=== PATIENT | male | born 1935 | race Caucasian/White ===

== ENCOUNTER 2017-06-07 16:27 | Emergency (ER) | payer MEDICARE, OTHER, SELFPAY ==
[2017-06-07 16:28] VITALS: BP 141/70; PULSE 75; RESP 17; TEMP 36.7; O2SAT 98; BMI 26.1
--- NOTE | 2017-06-07 16:40 | RAD_ITS ---
STUDY: X-RAY - UNILATERAL RIBS ( LEFT ) WITH CHEST REASON FOR EXAM: Male, 81 years old. Fall on the ice. Left rib pain TECHNIQUE - RIBS: 4 view(s) of the ribs. TECHNIQUE - CHEST: Single frontal view of the chest. COMPARISON: None. FINDINGS - RIBS: There are questionable nondisplaced lateral rib fractures involving the seventh and eighth ribs. FINDINGS - CHEST: There is hyperinflation of the lungs consistent with chronic obstructive lung disease (COPD). Lungs are clear. There is no demonstrated pleural abnormality. 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 Mild cardiomegaly. Left chest wall pacing device. Normal mediastinum and jostin. Normal visualized pulmonary arteries. Normal visualized aortic arch and descending thoracic aorta. Normal visualized thoracic spine. Normal visualized ribs, clavicles, and shoulders. There is no demonstrated abnormality of the visualized soft tissue structures of the upper abdomen. RAD/Ribs Uni Min 3V w/PA Chest IMPRESSION: RIBS: Probable 2 nondisplaced left lateral rib fractures as above CHEST: COPD without pneumothorax or acute airspace disease Electronically Signed: George Kong DO at 17:44 EST Tel , Service support ,
--- NOTE | 2017-06-07 16:44 | ED.DCSUM_ITS ---
- ER Visit Summary Date of Service: 06/07/17 Chief Complaint: Fall History of Present Illness: The patient is a 81 M who fell on the ice yesterday. Patient is complaining of pain to the left ribs and to his left hip. Denies striking his head or loss of consciousness. Patient does have A. fib but is only taking baby aspirin, no other anticoagulants. He took some over -the-counter arthritis pain relief medicine this morning. Physical Examination: Vital signs are unremarkable. Head neck examination reveals no external sign of trauma. No C-spine tenderness. Heart is regular rate and rhythm. Lung sounds are clear. He has reproducible tenderness in the left lower lateral ribs. There is no crepitus noted. Abdomen is soft nontender. Extremity examination reveals tenderness over both anterior and lateral portion of the left hip. He does have full range of motion at the hip. Strong distal pulses are noted throughout. Test Results: Left rib series with chest x-ray reveals probable to nondisplaced lateral rib fractures. He has evidence of COPD without pneumothorax. Pelvis left hip x-rays are unremarkable. Emergency Department Course and Treatment: Patient initially declined anything for pain, but after x-rays return he does agree to taking something stronger for pain. He will be given 1 tab of [place] here and a prescription for [place] will be sent electronically to [facility] [place]. Treatment Plan: [] Disposition: Discharge Impression: 1. Mechanical fall 2. Nondisplaced rib fractures This note was generated with [employer] dictation software. It may contain incorrect words, spelling, and punctuation that were not noted in review of the chart prior to signing ED Disposition - Plan for ED Patient: Chief Complaint: Fall Referrals: Jono Harrington Chi, MD [Primary Care Provider] -
[2017-06-07 16:49] VITALS: TEMP 36.6
--- NOTE | 2017-06-07 17:10 | RAD_ITS ---
STUDY: X-RAY - PELVIS AND LEFT HIP REASON FOR EXAM: Male, 81 years old. Left hip pain after fall on the ice TECHNIQUE: Radiological exam, hip, unilateral, with pelvis when performed; 2 or 3 views. COMPARISON: None. FINDINGS: There is a non-specific bowel gas pattern. Normal visualized soft tissue structures. Normal bilateral iliac wings, sacroiliac joints and visualized sacrum. Normal bilateral superior and inferior pubic rami. Normal pubic symphysis. Normal bilateral ischial tuberosities. There are osteoarthritic changes of the femoral head with marginal osteophyte formation. Normal acetabulum. There is mild articular joint space narrowing of the hip. RAD/Hip 2-3 Views with Pelvis IMPRESSION: No acute fracture Electronically Signed: George Kong DO at 17:46 EST Tel , Service support ,
--- NOTE | 2017-06-07 18:03 | ED.DEP ---
ED Disposition - Plan for ED Patient: Disposition: Home or Assisted Living Chief Complaint: Fall Instructions: ED Mechanical Fall, ED Fx Rib Prescriptions: Hydrocodone Bitart/Apap 5-325 [[place] 5/325] 1 - 2 tablet PO Q6H PRN PRN 4 Days #20 tablet PRN Reason: Pain Referrals: Jono Harrington Chi, MD [Primary Care Provider] - 1 Week
--- NOTE | 2017-06-07 18:06 | DCINST.ED_ITS ---
ED Disposition - Plan for ED Patient: Disposition: Home or Assisted Living Chief Complaint: Fall Instructions: ED Mechanical Fall, ED Fx Rib Prescriptions: Hydrocodone Bitart/Apap 5-325 [[place] 5/325] 1 - 2 tablet PO Q6H PRN PRN 4 Days # 20 tablet PRN Reason: Pain Referrals: Jono Harrington Chi, MD [Primary Care Provider] - 1 Week
[2017-06-07] MEDS: HYDROcodone Bitartrate/Apap 5/325 Tablet PO (18:13)
[2017-06-07 18:18] VITALS: BP 142/106; PULSE 99; RESP 16; O2SAT 99
--- NOTE | 2017-06-07 18:19 | ED.RN ---
REVIEWED D/C INSTRUCTIONS, FOLLOW UP CARE, PRESCRIPTION, AND S/S THAT WOULD WARRANT A RETURN TO THE ED WITH PT. PT VERBALIZED AN UNDERSTANDING AND DENIES FURTHER QUESTIONS FOR THIS RN. PT SKIN P/W/D, RESP EVEN AND UNLABORED, PT A&O X 3, NO DISTRESS NOTED. PT ASSISTED OUT OF ED IN WHEELCHAIR.
== END 2017-06-07 18:25 | disposition home or self-care (01) ==
PROVIDERS: Emergency Provider Emergency Medicine; Family Provider Family Medicine Geriatric Medicine; PCP Family Medicine Geriatric Medicine
DX: S22.42XA Multiple fractures of ribs, left side, initial encounter for closed fracture (principal); W00.0XXA Fall on same level due to ice and snow, initial encounter; Y93.9 Activity, unspecified; Y92.9 Unspecified place or not applicable; J44.9 Chronic obstructive pulmonary disease, unspecified; I48.91 Unspecified atrial fibrillation; Z79.82 Long term (current) use of aspirin; I25.10 Atherosclerotic heart disease of native coronary artery without angina pectoris; I13.0 Hypertensive heart and chronic kidney disease with heart failure and stage 1 through stage 4 chronic kidney disease, or unspecified chronic kidney disease; I50.9 Heart failure, unspecified; N18.9 Chronic kidney disease, unspecified; E78.00 Pure hypercholesterolemia, unspecified; Z79.899 Other long term (current) drug therapy; Z87.891 Personal history of nicotine dependence; Z95.1 Presence of aortocoronary bypass graft; Z95.0 Presence of cardiac pacemaker
CPT/HCPCS: 71101; 73502; 99283

== ENCOUNTER 2017-07-29 19:59 | Inpatient (IN) | payer MEDICARE, OTHER, SELFPAY ==
[2017-07-29] VITALS (8 sets, daily range): BP systolic 91–132; BP diastolic 53–95; PULSE 98–141; RESP 16–20; TEMP 36.4–36.9; O2SAT 90–92; BMI 25.9; BMI 25.7
--- NOTE | 2017-07-29 20:07 | CT_ITS ---
STUDY: CT ABDOMEN AND PELVIS WITHOUT CONTRAST REASON FOR EXAM: Male, 82 years old. Mid abdominal pain RADIATION DOSAGE (If Supplied By Facility): CTDIvol = ( 8.22 ) mGy, DLP = ( 406.44 ) mGycm TECHNIQUE: Transaxial images were obtained from the dome of the diaphragm to the symphysis pubis without oral contrast, and without intravenous contrast. Sagittal and coronal images were reconstructed. Individualized dose optimization techniques were used for this CT. COMPARISON: March 16, 2016 FINDINGS: There is a left pleural effusion present. There is a cardiac pacer device in place. Normal liver. There are surgical clips in the gallbladder fossa consistent with a prior cholecystectomy. Normal spleen. Normal pancreas. Normal bilateral adrenal glands. There are bilateral nonobstructing renal calculi. There is a exophytic left renal cysts measuring up to 6.1 Normal visualized stomach. There are dilated fluid-filled loops of small bowel within the lower abdomen and pelvis. There is feculent appearing material within the ileum. There are postsurgical changes along the anterior abdominal wall. There are diverticula scattered throughout the sigmoid colon. There is non-visualization of the appendix. There is diffuse atherosclerotic calcification of the abdominal aorta, without a demonstrated aneurysm. Normal inferior vena cava. Normal retroperitoneum. Normal urinary bladder. There are diffuse degenerative changes of the visualized lumbar spine. There are stable T12 and L1 anterior compression deformities. The bones are diffusely demineralized. There are left seventh, eighth and ninth rib deformities consistent old rib fractures. CT/Abdomen/Pelvis without Cont IMPRESSION: Small bowel obstruction. Colonic diverticulosis. Bilateral nonobstructing renal calculi. Left pleural effusion. Atherosclerosis. Electronically Signed: Lalita Sharif MD at 21:12 EDT Tel , Service support ,
--- NOTE | 2017-07-29 20:14 | ED.VISSUMM ---
- ER Visit Summary Date of Service: 07/29/17 Chief Complaint: [] Mid abdominal pain since yesterday History of Present Illness: The patient is a 82 M [] of CABG a pacemaker, A. fib, cardiac stents, cholecystectomy who reports yesterday he began having more centralized abdominal pain that persisted today he has had some nausea he has been able to eat he has had normal bowel habits and urinary habits. No fever no cough, the pain comes in spasms he does report history of kidney stones years ago nothing recent, he has had no exposures no antibiotics is otherwise been in stable health, he points directly to the periumbilical central abdominal region as the focal area of his pain, nothing makes the pain better or worse Physical Examination: [] He is tachycardic to 110 he is afebrile his blood pressure is within normal range she is awake and alert answering questions slightly hard of hearing his HEENT exam is unremarkable neck is supple unremarkable the lungs sound normal heart tones are about 90 sound regular the abdomen is soft he has this discomfort in the central abdomen, this area seems thicker indurated but there is no redness or warmth or abscess and there is no obvious hernia that is appreciated mass or pulsation, his exam to inspection shows no hernias and he has no pain in the area his upper lower extremity unremarkable pulses are symmetric is moving all 4 extremities he is talking in full sentences Patient indicates his only abdominal surgery was cholecystectomy I wonder whether he had prior abdominal surgery given the thickness to the abdominal wall skin anteriorly where he is having pain Test Results: [] Emergency Department Course and Treatment: [], EKG shows A. fib IV fluids CT scan labs pain management by the CT scan shows small bowel obstruction prior cholecystectomy findings, there do appear to be surgical clips in the area of the anterior abdominal wall nothing else acute see those reports the labs are unremarkable, the patient again is not really clear about his history and what type of procedures she has had done we spoke with Dr. Rin gamboa after consultation with her and further approach to the medical record there is a note from her prior admission for bowel obstruction by Dr. Zaman that the patient did have a right periumbilical mesh repair by Dr. Junior in 2004 given all that we spoke with Dr. Junior spoke with the hospitalist they are aware of the above and the hospitalist will admit consultation by surgery discussed all the above with the patient he agrees reevaluation is resting company he feels better we will place NG tube is received IV fluids Treatment Plan: [] Disposition: [] Admit stable Impression: [] Bowel obstruction, prior cholecystectomy, prior anterior abdominal wall periumbilical hernia repair, history of CABG pacemaker cardiac stents AMary baeza This note was generated with [email or web address] dictation software. It may contain incorrect words, spelling, and punctuation that were not noted in review of the chart prior to signing ED Disposition - Plan for ED Patient: Chief Complaint: Abd Pain Referrals: Jono Harrington Chi, MD [Primary Care Provider] -
--- NOTE | 2017-07-29 20:17 | EKG12_ITS ---
Test Reason : Blood Pressure : / mmHG Vent. Rate : 106 BPM Atrial Rate : 394 BPM P-R Int : 000 ms QRS Dur : 100 ms QT Int : 350 ms P-R-T Axes : 000 032 122 degrees QTc Int : 464 ms Atrial fibrillation Nonspecific ST and T wave abnormality Abnormal ECG Confirmed by QUINTEN TABOR, HARRY ([id number]), design editor JONATHAN RIVERA ([id number]) on 08/02/2017 2:17:33 PM Referred By: MULU Confirmed By:HARRY SHIPLEY MD
[2017-07-29] MEDS: 0.9% Normal Saline 1,000 ML 125 ML IV (20:21)
[2017-07-29] MEDS: morphine 8 MG/ML Syringe IV (20:22)
[2017-07-29] MEDS: Ondansetron 4 MG/2 ML Vial IV (20:22)
[2017-07-29 20:32] LABS: Absolute Lymphocyte Count 1.61 X10^3/ul (0.83-4.51); Absolute Neutrophil Count 7.5 X10^3/uL (2.0-7.7); Basophil# 0.04 X10^3/uL; Basophil% 0.4 % (0-1); Eosinophil# 0.17 X10^3/uL; Eosinophils% 1.6 % (0-5); Hematocrit 39.6 % (40-54); Hemoglobin 12.4 g/dl (13.0-16.5); Lymphocyte # 1.61 X10^3/ul (4.0); Lymphocyte % 15.3 % (19-41); Mean Corp Hgb Conc 31.3 g/gl (32-36); Mean Corpuscular Hgb 28.4 pg (27.0-32.0); Mean Corpuscular Volume 90.8 fL (80-94); Mean Platelet Vol. 9.8 fl (6.2-12.0); Monocyte# 1.14 X10^3/uL; Monocyte% 10.9 % (0-10); Neutrophil # 7.53 X10^3/uL (2.7-7.7); Neutrophil % 71.7 % (47-70); Platelet Count 205 K/mm3 (150-450); RBC Distribution Width CV 15.9 % (11.6-14.6); RBC Distribution Width SD 52.8 fl (35.1-43.9); Red Blood Count 4.36 M/mm3 (4.6-6.2); White Blood Count 10.5 K/mm3 (4.4-11.0)
[2017-07-29 20:33] LABS: POSITIVE COUNT NO; POSITIVE DIFFERENTIAL NO; POSITIVE MORPHOLOGY NO
[2017-07-29 20:52] LABS: AST(SGOT) 15 U/L (15-37); Alanine Aminotransfer ALT/SGPT 14 U/L (16-61); Albumin, Serum 3.5 g/dL (3.2-5.0); Alkaline Phosphatase 112 U/L (45-117); Anion Gap 7 (5-15); BUN 13 mg/dL (7-18); Calcium,Total 9.4 mg/dL (8.5-10.1); Chloride 109 mmol/L (98-107); Creatinine, Serum 1.08 mg/dL (0.70-1.30); EST Glomerular Filtration Rate 70 mL/min (>60); Est Glom Filt Rate - Afr Amer 84 mL/min (>60); Globulin 3.4 g/dL (2.2-4.2); Glucose 100 mg/dL (74-106); Lipase 124 U/L (73-393); Potassium 4.5 mmol/L (3.5-5.1); Protein, Total 6.9 g/dL (6.4-8.2); Sodium Level 143 mmol/L (136-145)
[2017-07-29 21:04] LABS: Lactic Acid 1.8 mmol/L (0.4-2.0)
--- NOTE | 2017-07-29 22:16 | HP.PCM_ITS ---
Problem List (1) Coronary artery disease Status: Chronic (2) Sick sinus syndrome Status: Chronic (3) Kidney disease, chronic, stage III (GFR 30-59 ml/min) Status: Chronic (4) Hyperlipidemia Status: Chronic (5) Hypothyroidism Status: Chronic (6) Hypertension Status: Chronic (7) Afib Status: Chronic Qualifiers: (8) Cardiac pacemaker Status: Chronic (9) S/P PTCA (percutaneous transluminal coronary angioplasty) Status: Chronic History of Present Illness Date of Admission: 07/29/17 Chief Complaint: Abdominal pain. The patient is a 82 year old M with past medical history as mentioned above presented to the emergency room because of abdominal pain. His complaints started 2 days ago with lower abdominal pain, intermittent pain, sharp pain, 8- 10 out of 10 in severity, not radiating, started to worsen today and today started complaining of associated nausea and vomiting and this pain has no aggravating or relieving factors. He had a bowel movement today and he has been passing flatus. He denies fever or chills. He denied urinary symptoms. He does have a history of kidney stones in the past. He had a history of herniorrhaphy and cholecystectomy. In the emergency room, he was afebrile, heart rate has been anywhere from 100-120, blood pressure was stable and pulse ox was 92% on room air. His routine blood work was remarkable for hemoglobin of 12.4 g/dL, otherwise normal. LFT and lipase were unremarkable. Lactic acid was normal. CT scan abdomen and pelvis without contrast revealed small bowel obstruction, bilateral nonobstructing kidney stones and small left pleural effusion. He is being admitted for small bowel obstruction and A. fib with RVR. Past Medical History Past Medical History (Chronic Problems): Chronic Problems (Last Updated 04/08/17 @ 15:15 by Ramya Byrne) Thyroid dysfunction (Chronic) Pt has not had any labs for thyroid since 08/2016 which were in normal range. Will check labs at this time. Dose will remain same unless labs abnormal. 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) Coronary artery disease (Chronic) Sick sinus syndrome (Chronic) Kidney disease, chronic, stage III (GFR 30-59 ml/min) (Chronic) Hyperlipidemia (Chronic) Hypothyroidism (Chronic) Hypertension (Chronic) Afib (Chronic) Cardiac pacemaker (Chronic) S/P PTCA (percutaneous transluminal coronary angioplasty) (Chronic) Thyroid disease (Chronic) Allergies No Known Allergies Allergy (Verified 07/29/17 20:02) Home Medications: Ambulatory Orders Medication Instructions Recorded Aspirin [Aspirin, Baby] 81 mg PO DAILY@0800 #0 tab.chew 11/26/14 Ergocalciferol [Vitamin D] 50,000 unit PO QMONTH #0 cap 11/26/14 Finasteride [Proscar] 5 mg PO DAILY #30 tab 11/26/14 Folic Acid 1 mg PO DAILY@0800 #0 tab 11/26/14 Nitroglycerin [Nitrostat] 0.4 mg SUBLINGUAL Q5M PRN #1 bottle 11/26/14 Metoprolol Tartrate [Lopressor 25 mg PO BID 02/19/15 (beta seth)] Omeprazole [Prilosec] 20 mg PO DAILY 02/19/15 Rosuvastatin Calcium [Crestor] 40 mg PO DAILY 02/19/15 Gabapentin [Neurontin] 300 mg PO QHS 08/17/15 Lipo-Flavonoid Plus 2 tab PO BID 12/13/15 imipramine 25 mg tablet 25 mg PO DAILY 04/08/17 multivitamin tablet 1 tab PO QAM 04/08/17 Calcium Phosphate Trib/Vit D3 1 each PO DAILY 07/29/17 [Citracal + D3 Gummies] Diphenhydramine HCl [Allergy] 25 mg PO DAILY 07/29/17 Tamsulosin HCl [Flomax] 0.4 mg PO DAILY 07/29/17 Surgical History: cholecystectomy, coronary bypass surgery, herniorrhaphy, - - CABG ?2, pacemaker, PCI ?4, left shoulder surgery, tonsillectomy.laproscopic surgery of abd Psychiatric History: No pertinent psych hx Lives: Spouse/ Significant Other Smoking Status: Former smoker Alcohol: None Drugs: None - *Family History Paternal History Items: Cancer, - Maternal History Items: - - according to her she had every disease known to man in her sleep Review of Systems Constitutional: Denies: Anorexia, Chills, Fever, Weakness Eyes: Denies: Blurred vision, Double vision, Drainage, Redness HEENT: Denies: Difficulty Hearing, Ear Pain, Eye Pain, Nasal Congestion, Sore Throat Cardiovascular: Denies: Chest Pain, Chest Pressure, Chest Tightness, Edema, Heaviness, Palpitations, Syncope Respiratory: Denies: Cough, Pleuritic Pain, Shortness of Breath, Sputum production, Wheezing Gastrointestinal: Reports: Abdominal Pain, Nausea, Vomiting. Denies: Constipation, Diarrhea Genitourinary: Denies: Dysuria, Frequency, Hematuria Musculoskeletal: Denies: Arm Pain, Back Pain, Foot Pain Skin: Denies: Dryness, Rash Neurological: Denies: Balance problems, Blurred vision, Double vision, Change in Speech, Slurred speech, Confusion, Headaches, Incoordination Psychiatric: Denies: Anxiety, Depression Endocrine: Denies: Change in Body Habitus, Polydipsia VTE Information - Inpt Only VTE Present on Admission: No VTE Mechan Device Prophylaxis: None VTE Pharm Prophylaxis ordered?: Yes - Physical Exam General: Alert, Oriented x3, Cooperative, No apparent distress HEENT: Atraumatic, PERRLA, EOMI Oral: Moist Mucosa, No Gingival or Mucosal Lesions/ Ulcerations Neck: Supple, No JVD, Negative Carotid Bruits, Trachea Midline, Thyroid Normal Size and Texture Lungs: Clear to auscultation, No rhonchi, No wheeze, No rales, Diminished Cardiovascular: Normal S1, Normal S2, No murmurs, PMI Normal, Irregular Rate, Tachycardic Abdomen: Bowel Sounds Present, Soft, Non-Distended, No Hepato-splenomegaly, Tender - Minimal lower abdominal tenderness. Extremities: No clubbing, No cyanosis, No edema Skin: No rashes, No breakdown Lymphatic: No Cervical, Supraclavicular, or Inguinal Adenopathy Neurological: Cranial nerves II-XII grossly intact, Motor Exam 5/5 strength throughout Psych/Mental Status: Normal Affect, Appropriate, Alert and oriented to time, place, person, mood and affect Vital Signs Temp Pulse Resp BP Pulse Ox 97.5 F L 118 H 20 H 105/55 L 92 07/29/17 20:00 07/29/17 20:00 07/29/17 20:00 07/29/17 20:00 07/29/17 20:00 Oxygen Delivery Method Room Air Weight: 170 lb 3.15 oz Body Mass Index (BMI) 25.9 Laboratory Tests Past 24 Hrs 07/29/17 07/29/17 07/29/17 20:15 20:15 20:15 WBC 10.5 RBC 4.36 L Hgb 12.4 L Hct 39.6 L MCV 90.8 MCH 28.4 MCHC 31.3 L RDW 15.9 H RDW Differential 52.8 H Plt Count 205 MPV 9.8 Immature Gran % (Auto) 0.100 Neut % (Auto) 71.7 H Lymph % (Auto) 15.3 L Pratt % (Auto) 10.9 H Eos % (Auto) 1.6 Baso % (Auto) 0.4 Absolute Neuts (auto) 7.5 Absolute Lymphs (auto) 1.61 Total Counted Not Reportable Sodium 143 Potassium 4.5 Chloride 109 H Carbon Dioxide 27.0 Anion Gap 7 BUN 13 Creatinine 1.08 Estim Creat Clear Calc 51.90 Est GFR (MDRD) Af Amer 84 Est GFR (MDRD) Non-Af 70 BUN/Creatinine Ratio 12.0 Glucose 100 Lactic Acid 1.8 Calcium 9.4 Total Bilirubin 0.60 Direct Bilirubin 0.10 AST 15 ALT 14 L Alkaline Phosphatase 112 Total Protein 6.9 Albumin 3.5 Globulin 3.4 Lipase 124 Clinical Impression(s) from Imaging Studies Abdomen/Pelvis CT 07/29/17 20:07 IMPRESSION: Small bowel obstruction. Colonic diverticulosis. Bilateral nonobstructing renal calculi. Left pleural effusion. Atherosclerosis. Electronically Signed: Lalita Sharif MD at 21:12 EDT Tel , Service support , Assessment/Plan This is an 82 years old male patient presented to the emergency room because of abdominal pain with nausea and vomiting and he was found to have small bowel obstruction and he has been in A. fib with RVR. #1 small bowel obstruction: Likely due to adhesions as he has a history of herniorrhaphy and cholecystectomy. According to the patient, he never had a history of bowel obstruction. CT scan abdomen and pelvis without contrast reviewed as above. NG tube inserted and he is on suction at this time. He still complaining of abdominal pain. Plan: Admit to PCU because he has A. fib with RVR, cardiac monitoring, keep on n.p.o., IV fluids, IV morphine as needed for pain, IV antiemetics, IV Pepcid twice daily, continue NG tube with low intermittent suction, general surgery consult, replace electrolytes as appropriate, PT OT evaluation and treatment. #2 A. fib with RVR: His heart rate has been fluctuating from around 100-130, blood pressure is borderline, systolic has been around 105. He does have a history of chronic A. fib. Plan: Cardiac monitoring, continue metoprolol, start IV metoprolol as needed with holding parameters. #3 bilateral nonobstructing kidney stones: Without evidence of obstruction, no hydronephrosis or hydroureter. Kidney function is normal. #4 CAD status post CABG and stents: Patient denies any chest pain or shortness of breath. Continue aspirin, metoprolol and statins. #5 hypertension: Blood pressure is borderline, continue metoprolol, close monitoring. #6 chronic atrial fibrillation/sick sinus syndrome: Status post pacemaker. As mentioned above, heart rate has been around 100-130. Plan for metoprolol p.o. twice daily and IV metoprolol as needed. Patient is not on anticoagulation. #7 hyperlipidemia: Continue statins. #8 benign prostatic hypertrophy: Continue Proscar and Flomax. #9 DVT prophylaxis: Subcu heparin. This note was generated with [employer] dictation software. It may contain incorrect words, spelling, and punctuation that were not noted in checking the note before signing. Code Visit Inpatient E&M: 40275 Init Hosp L3
--- NOTE | 2017-07-29 22:20 | RAD_ITS ---
STUDY: X-RAY - ABDOMEN/PELVIS REASON FOR EXAM: Male, 82 years old. NGT placement TECHNIQUE: Portable abdomen COMPARISON: May 07 2017 FINDINGS: There is a nasogastric tube in place with its tip within the expected region of the gastric fundus. There is a nonspecific bowel gas pattern. There are surgical clips within the right upper quadrant consistent with prior cholecystectomy. There are degenerative changes of the visualized thoracic and lumbar spine. RAD/Abdomen Single View (Portable) IMPRESSION: Nasogastric tube in a satisfactory position. Electronically Signed: Lalita Sharif MD at 23:12 EDT Tel , Service support ,
[2017-07-29] MEDS: 0.9% Normal Saline 1,000 ML 100 ML IV (23:35)
[2017-07-29 23:37] LABS: Thyroid Stim Hormone (TSH) 0.16 uIU/mL (0.358-3.74)
[2017-07-30] VITALS (19 sets, daily range): BP systolic 106–127; BP diastolic 46–72; PULSE 88–147; RESP 12–16; TEMP 36.7–37.2; O2SAT 93–96
[2017-07-30] MEDS: Metoprolol Tartrate 5 MG/5 ML Vial IV (01:59)
[2017-07-30] MEDS: 0.9% NaCl Peripheral Flush Adult/Peds IV (02:00)
[2017-07-30 05:41] LABS: Absolute Lymphocyte Count 1.67 X10^3/ul (0.83-4.51); Absolute Neutrophil Count 6.4 X10^3/uL (2.0-7.7); Basophil# 0.02 X10^3/uL; Basophil% 0.2 % (0-1); Eosinophil# 0.04 X10^3/uL; Eosinophils% 0.4 % (0-5); Hematocrit 36.2 % (40-54); Hemoglobin 11.3 g/dl (13.0-16.5); Lymphocyte # 1.67 X10^3/ul (4.0); Lymphocyte % 18.1 % (19-41); Mean Corp Hgb Conc 31.2 g/gl (32-36); Mean Corpuscular Hgb 28.7 pg (27.0-32.0); Mean Corpuscular Volume 91.9 fL (80-94); Monocyte# 1.14 X10^3/uL; Monocyte% 12.3 % (0-10); Neutrophil # 6.36 X10^3/uL (2.7-7.7); Neutrophil % 68.9 % (47-70); POSITIVE COUNT NO; POSITIVE DIFFERENTIAL NO; POSITIVE MORPHOLOGY NO; Platelet Count 180 K/mm3 (150-450); Red Blood Count 3.94 M/mm3 (4.6-6.2); White Blood Count 9.2 K/mm3 (4.4-11.0)
--- NOTE | 2017-07-30 05:55 | RAD_ITS ---
STUDY: X-RAY - ABDOMEN/PELVIS REASON FOR EXAM: Male, 82 years old. History of small bowel obstruction. TECHNIQUE: AP supine and decubitus views of the abdomen and pelvis. COMPARISON: Comparison is made with prior radiograph dated July 29, 2017. FINDINGS: A nasogastric tube is in situ. The tip is in the body of the stomach just distal to the gastroesophageal junction. Small left pleural effusion. Left basilar atelectasis. Blunting of the right costophrenic angle. Calcification of the mitral valve annulus. There is a moderate amount of colonic fecal material. There is no evidence of small bowel obstruction at this time. There is no demonstrated free abdominal air. Surgical clips are seen in the right upper quadrant most likely secondary to prior cholecystectomy. Atherosclerotic calcification of the abdominal aorta. There are diffuse degenerative changes of the visualized lumbar spine. RAD/Abd Decub and/or Erect(Portabl IMPRESSION: Moderate amount of fecal material is seen in the colon. There is no evidence of a small bowel obstruction. Electronically Signed: Royer Pineda MD at 8:33 EDT Tel [phone], Service support ,
[2017-07-30 06:01] LABS: Anion Gap 7 (5-15); BUN 14 mg/dL (7-18); BUN/Creat Ratio 14.9 RATIO (10-20); Calcium,Total 8.9 mg/dL (8.5-10.1); Chloride 109 mmol/L (98-107); Creatinine, Serum 0.94 mg/dL (0.70-1.30); EST Glomerular Filtration Rate 82 mL/min (>60); Est Glom Filt Rate - Afr Amer 99 mL/min (>60); Estimated Creatinine Clearance 59.63 ml/min; Glucose 92 mg/dL (74-106); Potassium 4.8 mmol/L (3.5-5.1); Sodium Level 143 mmol/L (136-145)
[2017-07-30] MEDS: Aspirin 81 MG TAB.CHEW PO (08:56)
[2017-07-30] MEDS: Folic Acid 1 MG Tablet PO (08:56)
--- NOTE | 2017-07-30 09:35 | PCM.CONS.GEN ---
Problem List (1) Partial bowel obstruction Status: Acute Qualifiers: Intestinal obstruction type: unspecified Qualified Code(s): K56.600 - Partial intestinal obstruction, unspecified as to cause Reason for Consult Date of Consultation: 07/30/17 History of Present Illness: The patient is a 82 M with a history of CABG a pacemaker, A. fib, cardiac stents, cholecystectomy who reports yesterday he began having more centralized abdominal pain that persisted today he has had some nausea he has been able to eat he has had normal bowel habits and urinary habits. No fever no cough, the pain comes in spasms he does report history of kidney stones years ago nothing recent, he has had no exposures no antibiotics is otherwise been in stable health, he points directly to the periumbilical central abdominal region as the focal area of his pain, nothing makes the pain better or worse. His workup included a CAT scan in the emergency department and placement of an NG tube. Patient states that he feels significantly better than he did when he came into the hospital. Patient states that he is passing small amounts of flatus. He feels that his abdomen is less distended. And he is no longer complaining of abdominal pain. Past Medical History Past Medical History (Chronic Problems): Chronic Problems (Last Updated 04/08/17 @ 15:15 by Ramya Byrne) Thyroid dysfunction (Chronic) Pt has not had any labs for thyroid since 08/2016 which were in normal range. Will check labs at this time. Dose will remain same unless labs abnormal. 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) Coronary artery disease (Chronic) Sick sinus syndrome (Chronic) Kidney disease, chronic, stage III (GFR 30-59 ml/min) (Chronic) Hyperlipidemia (Chronic) Hypothyroidism (Chronic) Hypertension (Chronic) Afib (Chronic) Cardiac pacemaker (Chronic) S/P PTCA (percutaneous transluminal coronary angioplasty) (Chronic) Thyroid disease (Chronic) Allergies No Known Allergies Allergy (Verified 07/29/17 20:02) Home Medications: Ambulatory Orders Medication Instructions Recorded Aspirin [Aspirin, Baby] 81 mg PO DAILY@0800 #0 tab.chew 11/26/14 Ergocalciferol [Vitamin D] 50,000 unit PO QMONTH #0 cap 11/26/14 Finasteride [Proscar] 5 mg PO DAILY #30 tab 11/26/14 Folic Acid 1 mg PO DAILY@0800 #0 tab 11/26/14 Nitroglycerin [Nitrostat] 0.4 mg SUBLINGUAL Q5M PRN #1 bottle 11/26/14 Metoprolol Tartrate [Lopressor 25 mg PO BID 02/19/15 (beta seth)] Omeprazole [Prilosec] 20 mg PO DAILY 02/19/15 Rosuvastatin Calcium [Crestor] 40 mg PO DAILY 02/19/15 Gabapentin [Neurontin] 300 mg PO QHS 08/17/15 Lipo-Flavonoid Plus 2 tab PO BID 12/13/15 imipramine 25 mg tablet 25 mg PO DAILY 04/08/17 multivitamin tablet 1 tab PO QAM 04/08/17 Calcium Phosphate Trib/Vit D3 1 each PO DAILY 07/29/17 [Citracal + D3 Gummies] Diphenhydramine HCl [Allergy] 25 mg PO DAILY 07/29/17 Tamsulosin HCl [Flomax] 0.4 mg PO DAILY 07/29/17 Surgical History: cholecystectomy, coronary bypass surgery, herniorrhaphy, - - CABG ?2, pacemaker, PCI ?4, left shoulder surgery, tonsillectomy.laproscopic surgery of abd Psychiatric History: No pertinent psych hx Lives: Spouse/ Significant Other Smoking Status: Former smoker Alcohol: None Drugs: None - *Family History Paternal History Items: Cancer, - Maternal History Items: - - according to her she had every disease known to man in her sleep Review of Systems Cardiovascular: Denies: Chest Pain, Chest Pressure, Chest Tightness, Palpitations Respiratory: Denies: Cough, Hemoptysis, Shortness of breath at rest, Shortness of breath upon exertion, Wheezing Gastrointestinal: Denies: Abdominal Pain, Constipation, Diarrhea, Hematemesis, Nausea, Melena, Vomiting Patient Problems: Active and Suspected Problems (Last Updated 04/08/17 @ 15:15 by Ramya Byrne) Partial bowel obstruction (Acute) - Physical Exam Lungs: Clear to auscultation Cardiovascular: Regular rate, Regular Rhythm, No murmurs Abdomen: Bowel Sounds Present, Soft, Non Tender, Non-Distended Vital Signs Temp Pulse Resp BP Pulse Ox 98.9 F 101 H 16 110/64 94 07/30/17 05:17 07/30/17 07:09 07/30/17 05:17 07/30/17 05:17 07/30/17 06:49 Oxygen Delivery Method Room Air Weight: 168 lb 13.985 oz Body Mass Index (BMI) 25.7 Intake and Output for Last 24 Hours 07/28/17 07/29/17 07/30/17 23:59 23:59 23:59 Intake Total 731 / 731 Output Total 475 / 475 Balance 256 / 256 Laboratory Tests Past 24 Hrs 07/30/17 07/30/17 05:25 05:25 WBC 9.2 RBC 3.94 L Hgb 11.3 L Hct 36.2 L MCV 91.9 MCH 28.7 MCHC 31.2 L RDW 16.0 H RDW Differential 54.0 H Plt Count 180 MPV 10.0 Immature Gran % (Auto) 0.100 Neut % (Auto) 68.9 Lymph % (Auto) 18.1 L [place] % (Auto) 12.3 H Eos % (Auto) 0.4 Baso % (Auto) 0.2 Absolute Neuts (auto) 6.4 Absolute Lymphs (auto) 1.67 Total Counted Not Reportable Sodium 143 Potassium 4.8 Chloride 109 H Carbon Dioxide 27.0 Anion Gap 7 BUN 14 Creatinine 0.94 Estim Creat Clear Calc 59.63 Est GFR (MDRD) Af Amer 99 Est GFR (MDRD) Non-Af 82 BUN/Creatinine Ratio 14.9 Glucose 92 Calcium 8.9 Assessment/Plan Active and Suspected Problems (Last Updated 04/08/17 @ 15:15 by Ramya Byrne) Partial bowel obstruction (Acute) We will wait for his morning flatplate and upright abdomen. More than likely will be able to remove the NG tube and start him on clear liquids today. He appears to be resolving with medical management alone.
[2017-07-30] MEDS: 0.9% Normal Saline 1,000 ML 100 ML IV ×2 (09:50→22:15)
[2017-07-30] MEDS: Metoprolol Tartrate 25 MG Tablet PO (10:25)
[2017-07-30] MEDS: Tamsulosin HCl 0.4 MG Capsule PO (10:25)
[2017-07-30] MEDS: Finasteride 5 MG Tablet PO (10:26)
--- NOTE | 2017-07-30 12:58 | PN_ITS ---
Patient Problems: Active and Suspected Problems (Last Updated 04/08/17 @ 15:15 by Ramya Byrne) Partial bowel obstruction (Acute) Subjective: Patient was seen and examined, denies any new complains. He has had multiple bowel movements. NG tube in situ that is draining, denies any more nausea or vomiting. General surgery consulted, and wait for the final recommendations. Objective: Physical Exam General: Alert, Oriented x3, Cooperative, No apparent distress HEENT: Atraumatic, PERRLA, EOMI Oral: Moist Mucosa, No Gingival or Mucosal Lesions/ Ulcerations Neck: Supple, No JVD, Negative Carotid Bruits, Trachea Midline, Thyroid Normal Size and Texture Lungs: Clear to auscultation, No rhonchi, No wheeze, No rales, Diminished Cardiovascular: Normal S1, Normal S2, No murmurs, PMI Normal, Irregular Rate, Tachycardic Abdomen: Bowel Sounds Present, Soft, Non-Distended, No Hepato-splenomegaly, Tender - Minimal lower abdominal tenderness. Extremities: No clubbing, No cyanosis, No edema Skin: No rashes, No breakdown Lymphatic: No Cervical, Supraclavicular, or Inguinal Adenopathy Neurological: Cranial nerves II-XII grossly intact, Motor Exam 5/5 strength throughout Psych/Mental Status: Normal Affect, Appropriate, Alert and oriented to time, place, person, mood and affect Vitals/I&O's: Vital Signs Temp Pulse Resp BP Pulse Ox 98.3 F 97 16 106/46 L 93 07/30/17 10:23 07/30/17 11:35 07/30/17 10:23 07/30/17 10:23 07/30/17 10:23 Oxygen Delivery Method Room Air Weight: 76.6 kg Body Mass Index (BMI) 25.7 Intake and Output for Last 24 Hours 07/28/17 07/29/17 07/30/17 23:59 23:59 23:59 Intake Total 60 / 60 1435 / 1435 Output Total 875 / 875 Balance 60 / 60 560 / 560 Laboratory Results 07/30/17 05:25: WBC 9.2, RBC 3.94 L, Hgb 11.3 L, Hct 36.2 L, MCV 91.9, MCH 28.7 , MCHC 31.2 L, RDW 16.0 H, RDW Differential 54.0 H, Plt Count 180, MPV 10.0, Immature Gran % (Auto) 0.100, Neut % (Auto) 68.9, Lymph % (Auto) 18.1 L, [place] % (Auto) 12.3 H, Eos % (Auto) 0.4, Baso % (Auto) 0.2, Absolute Neuts (auto) 6.4, Absolute Lymphs (auto) 1.67, Total Counted Not Reportable 07/30/17 05:25: Sodium 143, Potassium 4.8, Chloride 109 H, Carbon Dioxide 27.0, Anion Gap 7, BUN 14, Creatinine 0.94, Estim Creat Clear Calc 59.63, Est GFR ( MDRD) Af Amer 99, Est GFR (MDRD) Non-Af 82, BUN/Creatinine Ratio 14.9, Glucose 92, Calcium 8.9 Current Medications Aspirin (Aspirin, Baby) 81 mg PO DAILY@0800 [facility] Last Admin: 07/30/17 08:56 Dose: 81 mg Atorvastatin Calcium (Lipitor) 80 mg PO DAILY@2199 [facility] Finasteride (Proscar) 5 mg PO DAILY [facility] Last Admin: 07/30/17 10:26 Dose: 5 mg Folic Acid (Folic Acid) 1 mg PO DAILY@0800 [facility] Last Admin: 07/30/17 08:56 Dose: 1 mg Gabapentin (Neurontin) 300 mg PO QHS [facility] Heparin Sodium (Porcine) (Heparin Na) 5,000 unit SC Q8 [facility] Last Admin: 07/30/17 05:19 Dose: 5,000 u Sodium Chloride () 1,000 mls @ 100 mls/hr IV .Q10H [facility] Last Admin: 07/30/17 09:50 Dose: 100 mls/hr Famotidine (Pepcid 20mg) 20 mg in 50 mls @ 150 mls/hr IV Q12 [facility] Last Admin: 07/30/17 10:25 Dose: 150 mls/hr Imipramine HCl (Tofranil) 25 mg PO DAILY@2200 [facility] Metoprolol Tartrate (Lopressor (Beta Bebe)) 5 mg IV Q6H PRN PRN PRN Reason: for HR> 110, hold for SBP<110 Last Admin: 07/30/17 01:59 Dose: 5 mg Metoprolol Tartrate (Lopressor (Beta Bebe)) 25 mg PO BID [facility] Last Admin: 07/30/17 10:25 Dose: 25 mg Morphine Sulfate () 1 - 2 mg IV Q4H PRN PRN PRN Reason: SEVERE PAIN (6-10/10) Ondansetron HCl (Zofran) 4 mg IV Q6H PRN PRN PRN Reason: NAUSEA/VOMITING Sodium Chloride () 5 - 30 ml IV UD PRN PRN Reason: SALINE FLUSH Last Admin: 07/30/17 02:00 Dose: 10 ml Tamsulosin HCl (Flomax) 0.4 mg PO DAILY [facility] Last Admin: 07/30/17 10:25 Dose: 0.4 mg Medical Necessity - Tobacco Use Smoking Status: Former smoker Assessment/Plan Active and Suspected Problems (Last Updated 04/08/17 @ 15:15 by Ramya Byrne) Partial bowel obstruction (Acute) 82 years old male admitted with abdominal pain, nausea and vomiting and he was found to have small bowel obstruction and also A. fib with RVR. 1. Small bowel obstruction, likely due to adhesions and previous surgeries, status post NG tube, general surgery consulted, kept n.p.o., IV fluids running, will follow up on GI recommendations. 2. A. fib with RVR, rate controlled, on metoprolol p.o. 25 mg twice daily, and IV metoprolol as needed, would increase metoprolol to 50 mg p.o. twice daily, check magnesium. Not on anticoagulation, unclear reasons, patient says it was stopped 3-4 years and unsure why. On aspirin 3. Hyperthyroidism, TSH low at 0.16, will check free T4 and T3, to be the cause of his atrial fibrillation with RVR 4. Bilateral nonobstructing kidney stones, stable 5. CAD status post CABG and stents, on aspirin, metoprolol and statins. 6. Hypertension, controlled, on metoprolol. 7. Sick sinus syndrome, status post pacemaker 8. Hyperlipidemia, on statins. 9. Benign prostatic hypertrophy, on Proscar and Flomax. 10. DVT prophylaxis on Heparin SC. Code Visit Inpatient E&M: 43995 Subs Hosp L2
--- NOTE | 2017-07-30 14:51 | CASEMGMT ---
See RN BIRGIT assessment Link. Intro role of CM to patient in room. Discussed Home vs SNF. Pt states he has too much to do and first choice is to return home. When RN BIRGIT inquired for details, pt stated he needs to finish his taxes. -discussed CM following for dc planning and pt working with PT/OT daily to re-evaluate his activity. -case discussed with Rosalba ALMARAZ, name placed on TCU list. Ashley GLASS BSN ACM
--- NOTE | 2017-07-30 14:55 | CASEMGMT ---
Social Work Referral from Rob GLASS, BIRGIT that pt is considering short term placement in TCU. Referral made to [place] requesting pt be placed on list for possible discharge on Wednesday. Will follow to determine safe d/c plan. ILANA Novak
[2017-07-30 16:51] LABS: Magnesium 2.2 mg/dL (1.6-2.6); T4 Free Direct 1.14 ng/dL (0.76-1.46)
--- NOTE | 2017-07-30 17:10 | NURSING ---
D/C'D NG PER DR. CODY ORDER. PT TOLERATED PROCEDURE WELL. PLACED ON CLEAR LIQUID DIET AT THIS TIME.
[2017-07-30] MEDS: Atorvastatin Calcium 80 MG Tablet PO (22:17)
[2017-07-30] MEDS: Gabapentin 300 MG Capsule PO (22:17)
[2017-07-30] MEDS: Imipramine HCl 25 MG Tablet PO (22:18)
[2017-07-30] MEDS: Metoprolol Tartrate 50 MG Tablet PO (22:22)
[2017-07-31] VITALS (8 sets, daily range): BP systolic 100–127; BP diastolic 48–71; PULSE 90–102; RESP 16; TEMP 36.4–36.5; O2SAT 90–94
[2017-07-31] MEDS: 0.9% Normal Saline 1,000 ML 60 ML IV (04:24)
--- NOTE | 2017-07-31 05:10 | RAD_ITS ---
STUDY: X-RAY - ABDOMEN/PELVIS REASON FOR EXAM: Male, 82 years old. Small bowel obstruction TECHNIQUE: AP supine and upright views of the abdomen and pelvis. COMPARISON: 07/30/2017. FINDINGS: Normal visualized lung bases. There is an unremarkable bowel gas pattern. There is no demonstrated free abdominal air. The visualized liver, spleen and kidneys are grossly normal in size and morphology. Normal soft tissue structures. Normal visualized osseous structures. RAD/Abd Inc Decub and/or Erect IMPRESSION: Normal x-ray examination of the abdomen and pelvis. No bowel obstruction. Electronically Signed: Fabien Parekh DO at 8:27 EDT , Service support ,
--- NOTE | 2017-07-31 08:54 | PCM.PN.SRG ---
Patient Problems: Active and Suspected Problems (Last Updated 04/08/17 @ 15:15 by Ramya Byrne) Partial bowel obstruction (Acute) Subjective: Patient doing well with NG tube out. Tolerating a clear liquid diet. Passing flatus. Objective: Abdomen is scaphoid and soft significant improvement over the last 24 hours. - Physical Exam Vital Signs Temp Pulse Resp BP Pulse Ox 97.5 F L 90 16 127/71 H 90 07/31/17 04:04 07/31/17 07:37 07/31/17 04:04 07/31/17 04:04 07/31/17 07:40 Oxygen Delivery Method Room Air Weight: 168 lb 13.985 oz Body Mass Index (BMI) 25.7 Intake and Output for Last 24 Hours 07/29/17 07/30/17 07/31/17 23:59 23:59 23:59 Intake Total 60 / 60 3229 / 3229 436 / 436 Output Total 1475 / 1475 190 / 190 Balance 60 / 60 1754 / 1754 246 / 246 Laboratory Tests Past 24 Hrs 07/30/17 05:25 Magnesium 2.2 Free T4 1.14 Free T3 pg/dL 3.0 Medical Necessity - Tobacco Use Smoking Status: Former smoker Assessment/Plan Active and Suspected Problems (Last Updated 04/08/17 @ 15:15 by Ramya Byrne) Partial bowel obstruction (Acute) Patient is appropriately improved and is okay to discharge from my standpoint
[2017-07-31] MEDS: Finasteride 5 MG Tablet PO (09:10)
[2017-07-31] MEDS: Aspirin 81 MG TAB.CHEW PO (09:10)
[2017-07-31] MEDS: Tamsulosin HCl 0.4 MG Capsule PO (09:10)
[2017-07-31] MEDS: Folic Acid 1 MG Tablet PO (09:10)
[2017-07-31] MEDS: Metoprolol Tartrate 50 MG Tablet PO (09:15)
--- NOTE | 2017-07-31 10:26 | CASEMGMT ---
As per physician, pt is able to return home, agreeable to go home today. SW spoke w/pt briefly, he confirmed is agreeable to return home today, does not want to go to TCU. SW inquired about his unsteadiness on his feet as documented by PT, pt states this depends on how fast he is walking. Pt states he feels he can manage at home. SW inquired about home health, pt declined. No further needs, pt home today. NUNO Moore, PARTS COUNTER ASSOCIATE
--- NOTE | 2017-07-31 10:38 | PCM.DC ---
- Discharge Diagnoses Current Active Problems: Current Active and Chronic Problems (Last Updated 04/08/17 @ 15:15 by Ramya Byrne) Partial bowel obstruction (Acute) Reason(s) for Visit for Discharge Instructions: Abdominal pain You will use the following diet at home:: Cardiac Your food should be the consistency of: Regular Your liquids should be the consistency of: Regular/Thin Discharge Activity: Return to Normal Activity Allergies/Adverse Reactions: Allergies No Known Allergies Allergy (Verified 07/29/17 20:02) Medications to take at Discharge Aspirin [Aspirin, Baby] 81 mg PO DAILY@0800 #0 tab.chew 11/26/14 Ergocalciferol [Vitamin D] 50,000 unit PO QMONTH #0 cap 11/26/14 Finasteride [Proscar] 5 mg PO DAILY #30 tab 11/26/14 Folic Acid 1 mg PO DAILY@0800 #0 tab 11/26/14 Nitroglycerin [Nitrostat] 0.4 mg SUBLINGUAL Q5M PRN #1 bottle 11/26/14 Omeprazole [Prilosec] 20 mg PO DAILY 02/19/15 Rosuvastatin Calcium [Crestor] 40 mg PO DAILY 02/19/15 Gabapentin [Neurontin] 300 mg PO QHS 08/17/15 Lipo-Flavonoid Plus 2 tab PO BID 12/13/15 imipramine 25 mg tablet 25 mg PO DAILY 04/08/17 multivitamin tablet 1 tab PO QAM 04/08/17 Calcium Phosphate Trib/Vit D3 [Citracal + D3 Gummies] 1 each PO DAILY 07/29/17 Tamsulosin HCl [Flomax] 0.4 mg PO DAILY 07/29/17 Metoprolol Tartrate [Lopressor (beta seth)] 50 mg PO BID tablet 07/31/17 Primary Care Physician: Jono Harrington Chi, MD [Primary Care Provider] - Please follow up with your Primary Care Physician in: within 2 weeks Please Follow Up With: Jerry Jeffers MD When: within 2 weeks Please Follow Up With: Camryn Zayas, RETAIL PRODUCT ADVISOR-C When: in 4 weeks for repeat thyroid function testing Proposed Discharge Date: 07/31/17
--- NOTE | 2017-07-31 10:45 | DCINST_ITS ---
- Discharge Diagnoses Current Active Problems: Current Active and Chronic Problems (Last Updated 04/08/17 @ 15:15 by Ramya Byrne) Partial bowel obstruction (Acute) Reason(s) for Visit for Discharge Instructions: Abdominal pain You will use the following diet at home:: Cardiac Your food should be the consistency of: Regular Your liquids should be the consistency of: Regular/Thin Discharge Activity: Return to Normal Activity Allergies/Adverse Reactions: Allergies No Known Allergies Allergy (Verified 07/29/17 20:02) Medications to take at Discharge Aspirin [Aspirin, Baby] 81 mg PO DAILY@0800 #0 tab.chew 11/26/14 Ergocalciferol [Vitamin D] 50,000 unit PO QMONTH #0 cap 11/26/14 Finasteride [Proscar] 5 mg PO DAILY #30 tab 11/26/14 Folic Acid 1 mg PO DAILY@0800 #0 tab 11/26/14 Nitroglycerin [Nitrostat] 0.4 mg SUBLINGUAL Q5M PRN #1 bottle 11/26/14 Omeprazole [Prilosec] 20 mg PO DAILY 02/19/15 Rosuvastatin Calcium [Crestor] 40 mg PO DAILY 02/19/15 Gabapentin [Neurontin] 300 mg PO QHS 08/17/15 Lipo-Flavonoid Plus 2 tab PO BID 12/13/15 imipramine 25 mg tablet 25 mg PO DAILY 04/08/17 multivitamin tablet 1 tab PO QAM 04/08/17 Calcium Phosphate Trib/Vit D3 [Citracal + D3 Gummies] 1 each PO DAILY 07/29/17 Tamsulosin HCl [Flomax] 0.4 mg PO DAILY 07/29/17 Metoprolol Tartrate [Lopressor (beta seth)] 50 mg PO BID tablet 07/31/17 Primary Care Physician: Jono Harrington Chi, MD [Primary Care Provider] - Please follow up with your Primary Care Physician in: within 2 weeks Please Follow Up With: Jerry Jeffers MD When: within 2 weeks Please Follow Up With: Camryn Zayas, NUISANCE ANIMAL DAMAGE CONTROL AGENT-C When: in 4 weeks for repeat thyroid function testing Proposed Discharge Date: 07/31/17
--- NOTE | 2017-07-31 10:45 | PCM.DC.SUM ---
Discharge Date and Diagnosis - Problem List Patient Problems: Active and Suspected Problems (Last Updated 04/08/17 @ 15:15 by Ramya Byrne) Partial bowel obstruction (Acute) Date of Admission: 07/29/17 Date of Discharge: 07/31/17 - Primary Discharge Diagnosis Active and Suspected Problems (Last Updated 04/08/17 @ 15:15 by Ramya Byrne) Partial bowel obstruction (Acute) A. fib with RVR Subclincal hyperthyroidism Bilateral non-obstructing kidney stones - Secondary Discharge Diagnosis Chronic Problems (Last Updated 04/08/17 @ 15:15 by Ramya Byrne) Thyroid dysfunction (Chronic) Pt has not had any labs for thyroid since 08/2016 which were in normal range. Will check labs at this time. Dose will remain same unless labs abnormal. 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) Coronary artery disease (Chronic) Sick sinus syndrome (Chronic) Kidney disease, chronic, stage III (GFR 30-59 ml/min) (Chronic) Hyperlipidemia (Chronic) Hypothyroidism (Chronic) Hypertension (Chronic) Afib (Chronic) Cardiac pacemaker (Chronic) S/P PTCA (percutaneous transluminal coronary angioplasty) (Chronic) Thyroid disease (Chronic) Hospital Course and Treatment Imaging Results: 07/31/17 05:10 Abd Inc Decub and/or Erect [RAD] Urgent General surgery Operations: None Procedures: None Summary of Care Provided: 82 years old male admitted with abdominal pain, nausea and vomiting of 2 days durationand he was found to have small bowel obstruction and also A. fib with RVR. 1. Small bowel obstruction, likely due to adhesions and previous surgeries, initially managed with NG tube, general surgery consulted, kept n.p.o., improved conservatively, NG tube removed, tolerated improvement in diet and was discharged home. 2. A. fib with RVR, rate controlled on day of discharge, was on metoprolol p.o. 25 mg twice daily, metoprolol increased to 50 mg p.o. twice daily, CHADS2 score is 2, not on anticoagulation, unclear reasons, patient says it was stopped 3-4 years and unsure why. On aspirin, will need to follow-up with cardiology within 2 weeks. 3. Hyperthyroidism, subclinical, TSH 0.16, normal FT4, FT3, needs to have labs repeated and follow-up with endocrinology in 2-4 weeks 4. Bilateral nonobstructing kidney stones, stable 5. CAD status post CABG and stents, on aspirin, metoprolol and statins. 6. Hypertension, controlled, on metoprolol. 7. Sick sinus syndrome, status post pacemaker 8. Hyperlipidemia, on statins. 9. Benign prostatic hypertrophy, on Proscar and Flomax. Discharge Diet: Low fat/ Low Cholesterol, 2000 mg Sodium Diet Discharge Activity: Return to Normal Activity Home Medications: Medications to take at Discharge Aspirin [Aspirin, Baby] 81 mg PO DAILY@0800 #0 tab.chew 11/26/14 Ergocalciferol [Vitamin D] 50,000 unit PO QMONTH #0 cap 11/26/14 Finasteride [Proscar] 5 mg PO DAILY #30 tab 11/26/14 Folic Acid 1 mg PO DAILY@0800 #0 tab 11/26/14 Nitroglycerin [Nitrostat] 0.4 mg SUBLINGUAL Q5M PRN #1 bottle 11/26/14 Omeprazole [Prilosec] 20 mg PO DAILY 02/19/15 Rosuvastatin Calcium [Crestor] 40 mg PO DAILY 02/19/15 Gabapentin [Neurontin] 300 mg PO QHS 08/17/15 Lipo-Flavonoid Plus 2 tab PO BID 12/13/15 imipramine 25 mg tablet 25 mg PO DAILY 04/08/17 multivitamin tablet 1 tab PO QAM 04/08/17 Calcium Phosphate Trib/Vit D3 [Citracal + D3 Gummies] 1 each PO DAILY 07/29/17 Tamsulosin HCl [Flomax] 0.4 mg PO DAILY 07/29/17 Metoprolol Tartrate [Lopressor (beta seth)] 50 mg PO BID tablet 07/31/17 Primary Care Physician: Jono Harrington Chi, MD [Primary Care Provider] - Please follow up with your Primary Care Physician in: within 2 weeks Please Follow Up With: Jerry Jeffers MD When: within 2 weeks Please Follow Up With: Camryn Zayas NP-C When: in 4 weeks for repeat thyroid function testing Disposition: Home Minutes spent on discharge:: 25 Patient Condition:: Stable Medical Necessity - Tobacco Use Smoking Status: Former smoker Meaningful Use Info Meaningful Use Diagnoses (Choose all that apply): None applicable Code Visit Inpatient E&M: 40159 Disch Hosp
--- NOTE | 2017-08-02 15:43 | CASEMGMT ---
MARIA LUISA GENAO attempted discharge follow-up phone call. There was no answer. Will attempt again tomorrow, time permitting. T. HEIDY Gandhi, RN-BC, CCM
== END 2017-07-31 11:50 | disposition home or self-care (01) | DRG 390 ==
LOC: ED 20:26 → PCU 22:23
PROVIDERS: Admitting Provider Hospitalist; Emergency Provider Emergency Medicine; Family Provider Family Medicine Geriatric Medicine; PCP Family Medicine Geriatric Medicine; Visit Provider Internal Medicine
DX: K56.51 Intestinal adhesions [bands], with partial obstruction (principal); I48.2 Chronic atrial fibrillation; E03.9 Hypothyroidism, unspecified; N20.0 Calculus of kidney; Z87.442 Personal history of urinary calculi; I25.10 Atherosclerotic heart disease of native coronary artery without angina pectoris; I12.9 Hypertensive chronic kidney disease with stage 1 through stage 4 chronic kidney disease, or unspecified chronic kidney disease; N18.3 Chronic kidney disease, stage 3 (moderate); Z87.891 Personal history of nicotine dependence; N40.0 Benign prostatic hyperplasia without lower urinary tract symptoms; I49.5 Sick sinus syndrome; E78.5 Hyperlipidemia, unspecified; Z90.49 Acquired absence of other specified parts of digestive tract; Z95.1 Presence of aortocoronary bypass graft; Z95.0 Presence of cardiac pacemaker; Z98.61 Coronary angioplasty status; Z79.82 Long term (current) use of aspirin; Z79.899 Other long term (current) drug therapy
CPT/HCPCS: 36415; 74018; 74019; 74176; 80048; 80076; 83605; 83690; 83735; 84439; 84443; 84481; 85025; 93005; 97110; 97116; 97162; 97166; 97535; 97802; 99285; J7030; J7040; A4216; J2405

== ENCOUNTER → 2017-08-05 09:15 | Outpatient (CLI) | payer MEDICARE, OTHER, SELFPAY ==
[2017-08-05 11:39] LABS: T4 Free Direct 1.33 ng/dL (0.76-1.46); Thyroid Stim Hormone (TSH) 0.17 uIU/mL (0.358-3.74)
== END ==
PROVIDERS: Family Provider Family Medicine Geriatric Medicine; PCP Family Medicine Geriatric Medicine; Visit Provider Nurse Practitioner
DX: E07.9 Disorder of thyroid, unspecified (principal)
CPT/HCPCS: 36415; 84439; 84443; 84481

== ENCOUNTER → 2017-08-19 10:50 | Outpatient (CLI) | payer MEDICARE, OTHER, SELFPAY ==
--- NOTE | 2017-08-19 11:00 | US_ITS ---
STUDY: THYROID ULTRASOUND REASON FOR EXAM: Male, 82 years old. Hyperthyroidism TECHNIQUE: Transverse and longitudinal ultrasound evaluation of the thyroid was performed with real-time and static doss-scale imaging. COMPARISON: None. FINDINGS: RIGHT LOBE: The right lobe of the thyroid gland measures 4.1 x 2.5 x 1.6 cm. There is a homogeneous echotexture. There is a small hypoechoic focus in the midpole measuring 6.5 x 7.3 x 7.3 mm. LEFT LOBE: The left lobe of the thyroid gland measures 3.9 x 2.3 x 1.5 cm. There is a homogeneous echotexture. There are no demonstrated solid, cystic or complex lesions. ISTHMUS: The isthmus measures 3.0 mm. The regional lymph nodes are unremarkable. US/Thyroid IMPRESSION: The thyroid is normal in size and echogenicity. There is a small nodule in the mid pole of the right lobe measuring 7 mm and showing no suspicious features. A six month follow-up ultrasound can be obtained. Electronically Signed: Brisa Humphreys MD at 18:27 EDT Tel Direct: [phone], Service support ,
[2017-08-19 11:52] LABS: Thyroid Stim Hormone (TSH) 0.24 uIU/mL (0.358-3.74)
== END ==
PROVIDERS: Internal Medicine; Family Provider Family Medicine Geriatric Medicine; PCP Family Medicine Geriatric Medicine; Visit Provider Nurse Practitioner
DX: E05.90 Thyrotoxicosis, unspecified without thyrotoxic crisis or storm (principal)
CPT/HCPCS: 36415; 76536; 84443

== ENCOUNTER → 2017-09-07 09:34 | Outpatient (CLI) | payer MEDICARE, OTHER, SELFPAY | PROVIDERS: Family Provider Family Medicine Geriatric Medicine; PCP Family Medicine Geriatric Medicine; Visit Provider Nurse Practitioner | DX: E05.90 Thyrotoxicosis, unspecified without thyrotoxic crisis or storm (principal) ==

== ENCOUNTER → 2017-09-13 11:14 | Outpatient (CLI) | payer MEDICARE, OTHER, SELFPAY ==
[2017-09-13 13:13] LABS: Absolute Lymphocyte Count 1.35 X10^3/ul (0.83-4.51); Absolute Neutrophil Count 6.2 X10^3/uL (2.0-7.7); Basophil# 0.04 X10^3/uL; Basophil% 0.5 % (0-1); Eosinophil# 0.13 X10^3/uL; Eosinophils% 1.5 % (0-5); Hematocrit 37.3 % (40-54); Lymphocyte # 1.35 X10^3/ul (4.0); Lymphocyte % 15.9 % (19-41); Mean Corp Hgb Conc 32.2 g/gl (32-36); Mean Corpuscular Hgb 29.3 pg (27.0-32.0); Mean Corpuscular Volume 91.2 fL (80-94); Mean Platelet Vol. 10.8 fl (6.2-12.0); Monocyte# 0.74 X10^3/uL; Monocyte% 8.7 % (0-10); Neutrophil # 6.23 X10^3/uL (2.7-7.7); Neutrophil % 73.2 % (47-70); Platelet Count 203 K/mm3 (150-450); RBC Distribution Width CV 14.9 % (11.6-14.6); RBC Distribution Width SD 48.7 fl (35.1-43.9); Red Blood Count 4.09 M/mm3 (4.6-6.2); White Blood Count 8.5 K/mm3 (4.4-11.0)
[2017-09-13 13:14] LABS: POSITIVE COUNT NO; POSITIVE DIFFERENTIAL NO; POSITIVE MORPHOLOGY NO
[2017-09-13 13:46] LABS: Free T3 3.3 pg/mL (2.18-3.98); T4 Free Direct 1.13 ng/dL (0.76-1.46); Thyroid Stim Hormone (TSH) 0.56 uIU/mL (0.358-3.74)
== END ==
PROVIDERS: Family Provider Family Medicine Geriatric Medicine; PCP Family Medicine Geriatric Medicine; Visit Provider Nurse Practitioner
DX: E05.90 Thyrotoxicosis, unspecified without thyrotoxic crisis or storm (principal); E07.9 Disorder of thyroid, unspecified; K56.600 Partial intestinal obstruction, unspecified as to cause
CPT/HCPCS: 36415; 84439; 84443; 84481; 85025

== ENCOUNTER → 2017-11-04 16:24 | Outpatient (CLI) | payer MEDICARE, OTHER, SELFPAY | PROVIDERS: Family Provider Family Medicine Geriatric Medicine; Visit Provider Nurse Practitioner Adult Health | DX: R31.9 Hematuria, unspecified (principal) | CPT/HCPCS: 87086; 87088 ==

== ENCOUNTER 2017-11-30 16:34 | Emergency (ER) | payer MEDICARE, OTHER, SELFPAY ==
[2017-11-30 16:35] VITALS: BP 121/66; PULSE 91; RESP 16; TEMP 36.9; O2SAT 99; BMI 25.4
[2017-11-30 17:29] VITALS: PULSE 94; RESP 16; O2SAT 95
[2017-11-30 18:14] VITALS: BP 147/79; PULSE 87; RESP 17; O2SAT 98
[2017-11-30] MEDS: 0.9% Normal Saline 1,000 ML 1000 ML IV (18:14)
--- NOTE | 2017-11-30 18:20 | RAD_ITS ---
STUDY: X-RAY CHEST REASON FOR EXAM: Male, 82 years old. Chest pain TECHNIQUE: Single AP portable view of the chest. COMPARISON: 06/07/2017 FINDINGS: Left-sided pacemaker. The lungs are expanded. Blunted left costophrenic angle. There is no demonstrated pleural abnormality. Normal size heart. Patient status post sternotomy. Normal mediastinum and jostin. Normal visualized pulmonary arteries. Normal visualized aortic arch and descending thoracic aorta. Normal visualized thoracic spine. Normal visualized ribs, clavicles, and shoulders. There is no demonstrated abnormality of the visualized soft tissue structures of the upper abdomen. RAD/Chest 1 View (Portable) IMPRESSION: Left effusion. Left lower lung atelectasis/infiltrate. Electronically Signed: Fabien Parekh DO at 19:22 EDT , Service support ,
[2017-11-30 18:25] LABS: Absolute Lymphocyte Count 1.89 X10^3/ul (0.83-4.51); Absolute Neutrophil Count 3.2 X10^3/uL (2.0-7.7); Basophil# 0.03 X10^3/uL; Basophil% 0.5 % (0-1); Eosinophil# 0.12 X10^3/uL; Eosinophils% 2.1 % (0-5); Hematocrit 36.2 % (40-54); Hemoglobin 11.7 g/dl (13.0-16.5); Lymphocyte # 1.89 X10^3/ul (4.0); Lymphocyte % 32.6 % (19-41); Mean Corp Hgb Conc 32.3 g/gl (32-36); Mean Corpuscular Hgb 29.8 pg (27.0-32.0); Mean Corpuscular Volume 92.1 fL (80-94); Mean Platelet Vol. 10.1 fl (6.2-12.0); Monocyte# 0.58 X10^3/uL; Neutrophil # 3.17 X10^3/uL (2.7-7.7); Neutrophil % 54.8 % (47-70); POSITIVE COUNT NO; POSITIVE DIFFERENTIAL NO; POSITIVE MORPHOLOGY NO; Platelet Count 191 K/mm3 (150-450); RBC Distribution Width CV 14.9 % (11.6-14.6); RBC Distribution Width SD 50.4 fl (35.1-43.9); Red Blood Count 3.93 M/mm3 (4.6-6.2); White Blood Count 5.8 K/mm3 (4.4-11.0)
[2017-11-30 18:35] LABS: International Normalized Ratio 1.1; Prothrombin Time (Protime)PT. 14.1 SECONDS (11.7-14.9)
[2017-11-30 18:37] LABS: Anion Gap 6 (5-15); BUN 19 mg/dL (7-18); BUN/Creat Ratio 15.6 RATIO (10-20); Chloride 110 mmol/L (98-107); Creatinine, Serum 1.22 mg/dL (0.70-1.30); EST Glomerular Filtration Rate 61 mL/min (>60); Est Glom Filt Rate - Afr Amer 73 mL/min (>60); Estimated Creatinine Clearance 45.94 ml/min; Glucose 83 mg/dL (74-106); Potassium 4.3 mmol/L (3.5-5.1); Sodium Level 144 mmol/L (136-145)
[2017-11-30 19:07] LABS: BNP,B-Type NATRIURETIC PEPTIDE 338.9 pg/mL (0-100)
[2017-11-30 20:04] LABS: D-Dimer Quantitative (DVT/PE) 0.63 FEU/ug/m (0.27-0.49)
[2017-11-30 20:10] VITALS: BP 150/79; PULSE 100; RESP 20; O2SAT 95
--- NOTE | 2017-11-30 20:46 | ED.RN ---
DR. SUAZO INFORMED OF PT D-DIMER.
--- NOTE | 2017-11-30 21:02 | ED.VISSUMM ---
- ER Visit Summary Date of Service: 11/30/17 Chief Complaint: [Shortness of breath] History of Present Illness: The patient is a 82 M [presents the emergency department complaint shortness of breath since yesterday. Patient states that seems to be worse at night when he is laying flat. Patient has a sleep propped up on several pillows. Patient denies any chest pain. Patient does have a history of atrial fibrillation CHF as well as hypertension and coronary artery disease. Patient denies recent travel or surgery. He denies fever or cough. Patient is wondering if his symptoms are related to anxiety.] Physical Examination: [HEENT-PERRLA, EOMI. Cranial nerves II through XII grossly intact. TMs clear. Mucous membranes moist. No adenopathy. Cardiovascular-irregularly irregular with 2 out of 6 systolic ejection murmur Lungs-clear to auscultation, chest wall stable without crepitus or subcu emphysema Abdomen-normoactive bowel sounds, soft, nontender, no rebound or rigidity, no peritoneal signs. Extremities-intact ?4, normal range of motion, normal pulses, atraumatic]. Patient has +2 edema both lower extremities below the knee. Test Results: [EKG obtained on arrival showed us atrial fibrillation with ventricular rate 96 bpm with occasional ventricularly paced complexes. CBC with differential obtained showed a white count of 5.8, hemoglobin 11.7, hematocrit 36, platelets 191. Chemistries were normal. INR was 1.1. Troponin was less than 0.015. BNP was 338. D-dimer was 0.63 however when corrected for age its normal. Chest x-ray showed small left pleural effusion.] Emergency Department Course and Treatment: [I suspect patient's symptomatology likely due to slight fluid overload and patient was treated with 40 mg of Lasix IV. Patient is essentially asymptomatic and is not hypoxic. 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 Patient advised to minimize salt intake.] Treatment Plan: [Follow-up with cardiology within next 3-5 days] Disposition: [Discharged home in stable condition] Impression: [Dyspnea CHF Anxiety] This note was generated with [employer] software. It may contain incorrect words, spelling, and punctuation that were not noted in review of the chart prior to signing ED Disposition - Plan for ED Patient: Chief Complaint: Shortness of Breath Referrals: Jono Harrington Chi, MD [Primary Care Provider] -
--- NOTE | 2017-11-30 21:08 | ED.DCSUM_ITS ---
- ER Visit Summary Date of Service: 11/30/17 Chief Complaint: [Shortness of breath] History of Present Illness: The patient is a 82 M [presents the emergency department complaint shortness of breath since yesterday. Patient states that seems to be worse at night when he is laying flat. Patient has a sleep propped up on several pillows. Patient denies any chest pain. Patient does have a history of atrial fibrillation CHF as well as hypertension and coronary artery disease. Patient denies recent travel or surgery. He denies fever or cough. Patient is wondering if his symptoms are related to anxiety.] Physical Examination: [HEENT-PERRLA, EOMI. Cranial nerves II through XII grossly intact. TMs clear. Mucous membranes moist. No adenopathy. Cardiovascular-irregularly irregular with 2 out of 6 systolic ejection murmur Lungs-clear to auscultation, chest wall stable without crepitus or subcu emphysema Abdomen-normoactive bowel sounds, soft, nontender, no rebound or rigidity, no peritoneal signs. Extremities-intact ?4, normal range of motion, normal pulses, atraumatic]. Patient has +2 edema both lower extremities below the knee. Test Results: [EKG obtained on arrival showed us atrial fibrillation with ventricular rate 96 bpm with occasional ventricularly paced complexes. CBC with differential obtained showed a white count of 5.8, hemoglobin 11.7, hematocrit 36, platelets 191. Chemistries were normal. INR was 1.1. Troponin was less than 0.015. BNP was 338. D-dimer was 0.63 however when corrected for age its normal. Chest x-ray showed small left pleural effusion.] Emergency Department Course and Treatment: [I suspect patient's symptomatology likely due to slight fluid overload and patient was treated with 40 mg of Lasix IV. Patient is essentially asymptomatic and is not hypoxic. Feel patient can follow-up with his vp lab within next 3-5 days. Patient advised to minimize salt intake.] Treatment Plan: [Follow-up with cardiology within next 3-5 days] Disposition: [Discharged home in stable condition] Impression: [Dyspnea CHF Anxiety] This note was generated with [employer] software. It may contain incorrect words, spelling, and punctuation that were not noted in review of the chart prior to signing ED Disposition - Plan for ED Patient: Chief Complaint: Shortness of Breath Referrals: Jono Harrington Chi, MD [Primary Care Provider] -
--- NOTE | 2017-11-30 21:08 | ED.DEP ---
ED Disposition - Plan for ED Patient: Chief Complaint: Shortness of Breath Instructions: ED CHF General, ED Stress React Referrals: Jono Harrington Chi, MD [Primary Care Provider] - Jerry Jeffers MD [STAFF PHYSICIAN] - 3-5 Days
[2017-11-30] MEDS: Furosemide 40 MG/4 ML Vial IV (21:15)
[2017-11-30 21:23] VITALS: BP 161/96; PULSE 106; RESP 23; O2SAT 97
== END 2017-11-30 21:27 | disposition home or self-care (01) ==
PROVIDERS: Emergency Provider Emergency Medicine; Family Provider Family Medicine Geriatric Medicine; PCP Family Medicine Geriatric Medicine
DX: I11.0 Hypertensive heart disease with heart failure (principal); I50.9 Heart failure, unspecified; F41.9 Anxiety disorder, unspecified; R06.02 Shortness of breath; I25.10 Atherosclerotic heart disease of native coronary artery without angina pectoris; I48.91 Unspecified atrial fibrillation; Z95.1 Presence of aortocoronary bypass graft; Z79.01 Long term (current) use of anticoagulants; Z79.82 Long term (current) use of aspirin; Z79.899 Other long term (current) drug therapy
CPT/HCPCS: 71045; 80048; 83880; 84484; 85025; 85379; 85610; 93005; 96361; 96374; 99284; J7030; A4216; J1940

== ENCOUNTER 2017-12-05 11:56 | Inpatient (IN) | payer MEDICARE, OTHER, SELFPAY ==
[2017-12-05] VITALS (11 sets, daily range): BP systolic 116–151; BP diastolic 65–72; PULSE 75–112; RESP 15–20; TEMP 36.4–36.7; O2SAT 91–97; BMI 25.2; BMI 25.0
--- NOTE | 2017-12-05 12:55 | RAD_ITS ---
STUDY: X-RAY CHEST REASON FOR EXAM: Male, 82 years old. Chest pain TECHNIQUE: Single AP portable view of the chest. COMPARISON: 11/30/2017 FINDINGS: There is hyperinflation of the lungs consistent with chronic obstructive lung disease (COPD). Lungs are clear. Continued blunting of the left costophrenic angle. Stable left chest wall pacing device. 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 Mild cardiomegaly Normal mediastinum and jostin. Normal visualized pulmonary arteries. Normal visualized aortic arch and descending thoracic aorta. There are diffuse degenerative changes of the visualized thoracic spine. Normal visualized ribs, clavicles, and shoulders. There is no demonstrated abnormality of the visualized soft tissue structures of the upper abdomen. RAD/Chest PA and Lateral IMPRESSION: COPD with stable blunting of the bilateral costophrenic angles. No acute airspace disease. Electronically Signed: George Kong DO at 13:54 EDT Tel , Service support ,
[2017-12-05 13:12] LABS: Absolute Lymphocyte Count 1.28 X10^3/ul (0.83-4.51); Absolute Neutrophil Count 3.7 X10^3/uL (2.0-7.7); Basophil# 0.04 X10^3/uL; Basophil% 0.7 % (0-1); Eosinophil# 0.07 X10^3/uL; Eosinophils% 1.3 % (0-5); Hematocrit 34.1 % (40-54); Hemoglobin 11.2 g/dl (13.0-16.5); Lymphocyte # 1.28 X10^3/ul (4.0); Lymphocyte % 22.9 % (19-41); Mean Corp Hgb Conc 32.8 g/gl (32-36); Mean Corpuscular Hgb 29.9 pg (27.0-32.0); Mean Corpuscular Volume 90.9 fL (80-94); Mean Platelet Vol. 9.7 fl (6.2-12.0); Monocyte# 0.54 X10^3/uL; Monocyte% 9.6 % (0-10); Neutrophil # 3.67 X10^3/uL (2.7-7.7); Neutrophil % 65.5 % (47-70); POSITIVE COUNT NO; POSITIVE DIFFERENTIAL NO; POSITIVE MORPHOLOGY NO; Platelet Count 166 K/mm3 (150-450); RBC Distribution Width CV 14.9 % (11.6-14.6); RBC Distribution Width SD 49.6 fl (35.1-43.9); Red Blood Count 3.75 M/mm3 (4.6-6.2); White Blood Count 5.6 K/mm3 (4.4-11.0)
[2017-12-05 13:27] LABS: Anion Gap 10 (5-15); BUN 25 mg/dL (7-18); Chloride 110 mmol/L (98-107); Creatinine, Serum 1.47 mg/dL (0.70-1.30); EST Glomerular Filtration Rate 49 mL/min (>60); Est Glom Filt Rate - Afr Amer 59 mL/min (>60); Estimated Creatinine Clearance 38.13 ml/min; Glucose 109 mg/dL (74-106); Potassium 3.9 mmol/L (3.5-5.1); Sodium Level 146 mmol/L (136-145)
[2017-12-05 13:45] LABS: BNP,B-Type NATRIURETIC PEPTIDE 467.8 pg/mL (0-100)
--- NOTE | 2017-12-05 14:18 | NURSING ---
DR KENT FOR DR MARTINS
--- NOTE | 2017-12-05 14:20 | ED.VISSUMM ---
- ER Visit Summary Date of Service: 12/05/17 Chief Complaint: Shortness of breath History of Present Illness: The patient is a 82 M who presents with shortness of breath. This is been present for 5 days. He was recently seen in the emergency [place]. At that time he was diagnosed with a mild CHF exacerbation was given diuretics and did see cardiology the next day. He states that his Lasix was doubled for the next 5 days. Despite this he continues to complain of shortness of breath with lying flat in particular. He is also had some chest tightness. Currently he is actually symptom-free. He has noticed some increased lower extremity edema as well. He denies chest pain fevers vomiting. Physical Examination: Afebrile vitals are stable No distress Heart regular rate and rhythm Lungs are clear without rales rhonchi wheezes Abdomen soft 1+ pitting symmetric lower extremity edema Test Results: EKG shows atrial fibrillation at a rate of 91 there are new or more pronounced T-wave inversions in the precordial leads. Labs notable for BUN 25, creatinine 1.47. Troponin is negative. BNP is 467.8 which is increased from recent labs despite increasing his diuretic. Emergency Department Course and Treatment: Patient currently denies any chest pain or shortness of breath. However he does complain of increasing edema and his BNP is higher than recent labs despite having recently doubled his diuretic. He also has EKG changes from prior. I do feel he will need admitted for IV diuresis. He was discussed with the hospitalist. Treatment Plan: [] Disposition: Admit Impression: HF exacerbation Acute EKG changes This note was generated with [employer] dictation software. It may contain incorrect words, spelling, and punctuation that were not noted in review of the chart prior to signing ED Disposition - Plan for ED Patient: Chief Complaint: Shortness of Breath Referrals: Jono Harrington Chi, MD [Primary Care Provider] -
--- NOTE | 2017-12-05 14:23 | ED.DCSUM_ITS ---
- ER Visit Summary Date of Service: 12/05/17 Chief Complaint: Shortness of breath History of Present Illness: The patient is a 82 M who presents with shortness of breath. This is been present for 5 days. He was recently seen in the emergency [place]. At that time he was diagnosed with a mild CHF exacerbation was given diuretics and did see cardiology the next day. He states that his Lasix was doubled for the next 5 days. Despite this he continues to complain of shortness of breath with lying flat in particular. He is also had some chest tightness. Currently he is actually symptom-free. He has noticed some increased lower extremity edema as well. He denies chest pain fevers vomiting. Physical Examination: Afebrile vitals are stable No distress Heart regular rate and rhythm Lungs are clear without rales rhonchi wheezes Abdomen soft 1+ pitting symmetric lower extremity edema Test Results: EKG shows atrial fibrillation at a rate of 91 there are new or more pronounced T-wave inversions in the precordial leads. Labs notable for BUN 25, creatinine 1.47. Troponin is negative. BNP is 467.8 which is increased from recent labs despite increasing his diuretic. Emergency Department Course and Treatment: Patient currently denies any chest pain or shortness of breath. However he does complain of increasing edema and his BNP is higher than recent labs despite having recently doubled his diuretic. He also has EKG changes from prior. I do feel he will need admitted for IV diuresis. He was discussed with the hospitalist. Treatment Plan: [] Disposition: Admit Impression: HF exacerbation Acute EKG changes This note was generated with [employer] dictation software. It may contain incorrect words, spelling, and punctuation that were not noted in review of the chart prior to signing ED Disposition - Plan for ED Patient: Chief Complaint: Shortness of Breath Referrals: Jono Harrington Chi, MD [Primary Care Provider] -
[2017-12-05] MEDS: Furosemide 40 MG/4 ML Vial IV ×2 (14:41→17:17)
--- NOTE | 2017-12-05 14:48 | NURSING ---
Called ED charge nurse to send patient at [phone]
--- NOTE | 2017-12-05 14:58 | PCM.HP.STD ---
<Dung Morel - Last Filed: 12/05/17 14:58> Problem List (1) CHF (congestive heart failure) Status: Acute (2) Chronic atrial fibrillation Status: Chronic (3) Kidney disease, chronic, stage III (GFR 30-59 ml/min) Status: Chronic (4) Hyperlipidemia Status: Chronic (5) Hypothyroidism Status: Chronic (6) Hypertension Status: Chronic (7) Cardiac pacemaker Status: Chronic Comment: Pacemaker implant June 2005; Pacemaker generator change 11/28/12; (8) S/P PTCA (percutaneous transluminal coronary angioplasty) Status: Chronic Comment: 02/20/98 PTCA to end stent restenosis of mid cx; 07/18/97 PTCA/stent of obtuse marginal & distal CX; 09/13/97 Rotational atherectomy of CX; 09/25/97, 11/01/97 PTSC/stent of CX; PTCA with stenting of LAD02/21/03; History of Present Illness Date of Admission: 12/05/17 Chief Complaint: SOB The patient is a 82 year old M with a hx of chronic diastolic CHF, chronic Afib, CAD s/p double CABG and 4x stents, pt of Dr. Jeffers, HTN, HLD, hypothyroid, CKDIII, who presents to the ER with SOB. He was in the ER on Wednesday with increased SOB, was told to take additional lasix for 5 more [address] Jeffers in the office the next day. He did not improve at home. He progressively became more dyspneic especially with exertion, and especially when attempting to lay flat. He could not sleep because he was very SOB at night. He has had an occasional productive cough with phlegm. He has no fevers or chills. He has intermittent swelling of his BLE, L>R (always worse since CABG). He also has had intermittent CP the previous week. He states it is short stabbing pains in his middle and left sided anterior chest wall. No dizziness or LH. [] Past Medical History Past Medical History (Chronic Problems): Chronic Problems (Last Reviewed 12/05/17 @ 15:18 by Johnson Roque DO) Atherosclerosis of coronary artery of [place] heart without angina pectoris (Chronic) Chronic atrial fibrillation (Chronic) Encounter for long-term current use of high risk medication (Chronic) Abnormal result of cardiovascular function study (Chronic) Chronic diastolic (congestive) heart failure (Chronic) Atherosclerosis of coronary artery bypass graft without angina pectoris (Chronic) Paroxysmal atrial fibrillation (Chronic) Thyroid dysfunction (Chronic) Mild hyperthyroidism. Will order thyroid US and antibodies. Start on low dose tapazole. 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) CABG November 1997, ROMERO to LAD, SVG from aorta to ramus intermedius artery Coronary artery disease (Chronic) Sick sinus syndrome (Chronic) Kidney disease, chronic, stage III (GFR 30-59 ml/min) (Chronic) Hyperlipidemia (Chronic) Hypothyroidism (Chronic) Hypertension (Chronic) Afib (Chronic) Cardiac pacemaker (Chronic) Pacemaker implant June 2005; Pacemaker generator change 11/28/12; S/P PTCA (percutaneous transluminal coronary angioplasty) (Chronic) 02/20/98 PTCA to end stent restenosis of mid cx; 07/18/97 PTCA/stent of obtuse marginal & distal CX; 09/13/97 Rotational atherectomy of CX; 09/25/97, 11/01/97 PTSC/stent of CX; PTCA with stenting of LAD02/21/03; Thyroid disease (Chronic) Medical History: Medical History (Last Reviewed 11/05/17 @ 11:04 by Maricarmen Blank) Coronary artery disease (Chronic) I25.10 Hypertension (Chronic) I10 Afib (Chronic) I48.91 Cardiac pacemaker (Chronic) Z95.0 Pacemaker implant June 2005; Pacemaker generator change 11/28/12; Afib I48.91 Anemia D64.9 Atrial flutter I48.92 CAD (coronary artery disease) I25.10 CHF (congestive heart failure) I50.9 Cardiomyopathy I42.9 Eyelid retraction unspecified eye, unspecified lid H02.539 Hyperlipidemia E78.5 Myocardial infarction I21.9 Orthostatic hypotension I95.1 Partial bowel obstruction K56.600 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 ureteral stent HTN (hypertension) I10 Allergies No Known Allergies Allergy (Verified 12/02/17 13:27) Home Medications: Ambulatory Orders Medication Instructions Recorded Aspirin [Aspirin, Baby] 81 mg PO DAILY@0800 #0 tab.chew 11/26/14 Ergocalciferol [Vitamin D] 50,000 unit PO QMONTH #0 cap 11/26/14 Finasteride [Proscar] 5 mg PO DAILY #30 tab 11/26/14 Folic Acid 1 mg PO DAILY@0800 #0 tab 11/26/14 Nitroglycerin [Nitrostat] 0.4 mg SUBLINGUAL Q5M PRN #1 bottle 11/26/14 Omeprazole [Prilosec] 20 mg PO DAILY 02/19/15 Rosuvastatin Calcium [Crestor] 40 mg PO DAILY 02/19/15 Lipo-Flavonoid Plus 2 tab PO BID 12/13/15 multivitamin tablet 1 tab PO QAM 04/08/17 Calcium Phosphate Trib/Vit D3 1 ea PO DAILY 07/29/17 [Citracal + D3 Gummies] Tamsulosin HCl [Flomax] 0.4 mg PO DAILY 07/29/17 methimazole 5 mg tablet 5 mg PO .COMPLEX #12 tab 08/12/17 metoprolol succinate ER 25 mg 25 mg PO BID #60 tab 11/05/17 tablet,extended release 24 hr furosemide 20 mg tablet 20 mg PO QDAY #30 tab 12/02/17 Surgical History: Surgical History (Last Reviewed 11/05/17 @ 11:04 by Maricarmen Blank) 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) Z95.1 CABG November 1997, ROMERO to LAD, SVG from aorta to ramus intermedius artery S/P PTCA (percutaneous transluminal coronary angioplasty) (Chronic) Z98.61 02/20/98 PTCA to end stent restenosis of mid cx; 07/18/97 PTCA/stent of obtuse marginal & distal CX; 09/13/97 Rotational atherectomy of CX; 09/25/97, 11/01/97 PTSC/stent of CX; PTCA with stenting of LAD02/21/03; H/O hernia repair Z98.890, Z87.19 H/O myringoplasty Z98.890 Hx of CABG Z95.1 Hx of cholecystectomy Z98.890, Z90.49 Surgical History: cholecystectomy, coronary bypass surgery, herniorrhaphy, - - CABG ?2, pacemaker, PCI ?4, left shoulder surgery, tonsillectomy.laproscopic surgery of abd Psychiatric History: No pertinent psych hx Lives: Alone Smoking Status: Former smoker Drugs: None - *Family History Paternal Family History: Family History (Last Reviewed 11/05/17 @ 11:04 by Maricarmen Blank) Father Lung cancer CVA (cerebral vascular accident) Brother Sudden cardiac History Items: Cancer, - Maternal Family History: Family History (Last Reviewed 11/05/17 @ 11:04 by Maricarmen Blank) Father Lung cancer CVA (cerebral vascular accident) Brother Sudden cardiac History Items: - - according to her 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 Dyspnea. Denies: Palpitations Respiratory: Reports: Cough, Shortness of Breath, Shortness of breath at rest, Shortness of breath upon exertion, Sputum production Gastrointestinal: Denies: Abdominal Pain, Nausea, Vomiting Genitourinary: Denies: Dysuria Musculoskeletal: Denies: Joint Pain, Joint Tenderness Skin: Denies: Rash, Wounds Neurological: Denies: Numbness, Tingling, Focal weakness Psychiatric: Denies: Anxiety, Depression, Homicidal Ideations, Suicidal Ideations Hematologic/ Lymphatic: Denies: Easy Bruising, Easy Bleeding VTE Information - Inpt Only VTE Present on Admission: No VTE Mechan Device Prophylaxis: None VTE Pharm Prophylaxis ordered?: Yes Patient Problems: Active and Suspected Problems (Last Reviewed 12/05/17 @ 15:18 by Johnson Roque DO) CHF (congestive heart failure) (Acute) - Physical Exam General: Alert, Oriented x3, Cooperative HEENT: Atraumatic, PERRLA, EOMI, Normocephalic Neck: Supple, No JVD, Negative Carotid Bruits Lungs: Clear to auscultation, Diminished Cardiovascular: No murmurs, Irregular Rate, Tachycardic Abdomen: Bowel Sounds Present, Soft, Non Tender Extremities: No edema, Capillary Refill Less than 3 Seconds Skin: No rashes, No breakdown Musculoskeletal: No Tenderness to Palpation of Joints or Extremities Neurological: Cranial nerves II-XII grossly intact Psych/Mental Status: Normal Affect, Appropriate, Alert and oriented to time, place, person, mood and affect Vital Signs Temp Pulse Resp BP Pulse Ox 98.1 F 112 H 18 151/68 H 97 12/05/17 11:57 12/05/17 14:38 12/05/17 14:38 12/05/17 14:38 12/05/17 14:38 Assessment/Plan All Active Problems (Last Reviewed 12/05/17 @ 15:18 by Johnson Roque DO) CHF (congestive heart failure) (Acute) Hyperthyroidism (Acute) Partial bowel obstruction (Acute) 1. Acute diastolic CHF exacerbation - last echo EF 55%. Start IV lasix. Repeat Echo in AM. BNP elevated. CXR with COPD, minimal peripheral edema at this time, lungs are clear but diminished, not requiring additional O2. 2. Chest pain - new t wave inversions on EKG since july EKG. Negative troponin. Maintain on tele and cycle enzymes. Cardiology will be consulted. 3. CKD III - appears mildly above baseline. Repeat BMP in AM. 4. CAD - prior CABG, stents 5. Chronic Afib - not on OAC per cardiology office note this is 2/2 a hx of falls- continue beta seth , mildly tachy, has Pacemaker. 6. HLD - statin 7. HTN - stable 8. hyperthyroidism - on methimazole. DVT ppx: heparin DC planning: ptot, hx of falls. This patient was seen by Dung Morel PA-C under the supervision of Dr. Roque. <Johnson Roque - Last Filed: 12/05/17 15:23> Problem List (1) CHF (congestive heart failure) Status: Acute Qualifiers: Heart failure type: unspecified Heart failure chronicity: acute Qualified Code(s): I50.9 - Heart failure, unspecified History of Present Illness The patient is a 82 year old M persistent feeling of getting smothered. He describes orthopnea as a shortness of breath gets worse when he lies flat. Does complain of chest pain but is intermittent and not exertional. Once a cardiology office and on the and received Lasix but was not getting better and then came to the hospital. Patient had an elevated BNP but was not hypoxic. Chest x-ray shows some small pleural effusions in the bases. Patient received IV Lasix in the emergency room. He states that he is feeling better since that Lasix. Patient also does state that he is having some increasing lower extremity edema with his left leg being greater than his right given the previous venous harvesting. [] Past Medical History Medical History: Medical History (Last Reviewed 12/05/17 @ 15:18 by Johnson Roque DO) Coronary artery disease (Chronic) I25.10 Hypertension (Chronic) I10 Afib (Chronic) I48.91 Cardiac pacemaker (Chronic) Z95.0 Pacemaker implant June 2005; Pacemaker generator change 11/28/12; Afib I48.91 Anemia D64.9 Atrial flutter I48.92 CAD (coronary artery disease) I25.10 CHF (congestive heart failure) I50.9 Cardiomyopathy I42.9 Eyelid retraction unspecified eye, unspecified lid H02.539 Hyperlipidemia E78.5 Myocardial infarction I21.9 Orthostatic hypotension I95.1 Partial bowel obstruction K56.600 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 ureteral stent HTN (hypertension) I10 Allergies No Known Allergies Allergy (Verified 12/02/17 13:27) Surgical History: Surgical History (Last Reviewed 12/05/17 @ 15:18 by Johnson Roque DO) 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) Z95.1 CABG November 1997, ROMERO to LAD, SVG from aorta to ramus intermedius artery S/P PTCA (percutaneous transluminal coronary angioplasty) (Chronic) Z98.61 02/20/98 PTCA to end stent restenosis of mid cx; 07/18/97 PTCA/stent of obtuse marginal & distal CX; 09/13/97 Rotational atherectomy of CX; 09/25/97, 11/01/97 PTSC/stent of CX; PTCA with stenting of LAD02/21/03; H/O hernia repair Z98.890, Z87.19 H/O myringoplasty Z98.890 Hx of CABG Z95.1 Hx of cholecystectomy Z98.890, Z90.49 Surgical History: cholecystectomy, coronary bypass surgery, herniorrhaphy, - Psychiatric History: No pertinent psych hx Lives: Alone Smoking Status: Former smoker Drugs: None - *Family History Paternal Family History: Family History (Last Reviewed 12/05/17 @ 15:18 by Johnson Roque DO) Father Lung cancer CVA (cerebral vascular accident) Brother Sudden cardiac Maternal Family History: Family History (Last Reviewed 12/05/17 @ 15:18 by Johnson Roque DO) Father Lung cancer CVA (cerebral vascular accident) Brother Sudden cardiac Review of Systems Constitutional: Denies: Chills, Fever, Weight Change HEENT: Denies: Head Aches, Sinus Congestion, Sinus Drainage Cardiovascular: Reports: Chest Pain, Edema, Orthopnea. Denies: Palpitations, Paroxysmal Noc. Dyspnea Respiratory: Reports: Cough, Shortness of Breath, Shortness of breath at rest, Shortness of breath upon exertion, Sputum production Gastrointestinal: Denies: Abdominal Pain, Nausea, Vomiting Genitourinary: Denies: Dysuria Musculoskeletal: Denies: Joint Pain, Joint Tenderness Skin: Denies: Rash, Wounds Neurological: Denies: Focal weakness, Numbness, Tingling Psychiatric: Denies: Anxiety, Depression, Homicidal Ideations, Suicidal Ideations Hematologic/ Lymphatic: Denies: Easy Bruising, Easy Bleeding Comment: All review of systems are negative except as mentioned in the history of present illness and the other review of systems. VTE Information - Inpt Only VTE Present on Admission: No VTE Mechan Device Prophylaxis: None VTE Pharm Prophylaxis ordered?: Yes - Physical Exam General: Alert, Cooperative, No apparent distress HEENT: Atraumatic, Normocephalic Neck: No JVD, No Nodes, Thyroid Normal Size and Texture Lungs: Clear to auscultation, Normal air movement, No rhonchi, No wheeze Cardiovascular: Regular rate, Regular Rhythm, Normal S1 Abdomen: Bowel Sounds Present, Soft, Non Tender, Non-Distended Extremities: No Calf Tenderness, - - Trace edema in bilateral lower extremities with left being slightly greater than the right. Skin: No rashes, No breakdown Neurological: Cranial nerves II-XII grossly intact, Neuro grossly intact Psych/Mental Status: Normal Affect, Appropriate Vital Signs Temp Pulse Resp BP Pulse Ox 36.7 C 112 H 18 151/68 H 97 12/05/17 11:57 12/05/17 14:38 12/05/17 14:38 12/05/17 14:38 12/05/17 14:38 Laboratory Results - last 24 hr 12/05/17 12/05/17 12/05/17 13:05 13:05 13:05 WBC 5.6 RBC 3.75 L Hgb 11.2 L Hct 34.1 L MCV 90.9 MCH 29.9 MCHC 32.8 RDW 14.9 H RDW Differential 49.6 H Plt Count 166 MPV 9.7 Immature Gran % (Auto) 0.000 Neut % (Auto) 65.5 Lymph % (Auto) 22.9 [place] % (Auto) 9.6 Eos % (Auto) 1.3 Baso % (Auto) 0.7 Absolute Neuts (auto) 3.7 Absolute Lymphs (auto) 1.28 Total Counted Not Reportable Sodium 146 H Potassium 3.9 Chloride 110 H Carbon Dioxide 26.0 Anion Gap 10 BUN 25 H Creatinine 1.47 H Estim Creat Clear Calc 38.13 Est GFR (MDRD) Af Amer 59 L Est GFR (MDRD) Non-Af 49 L BUN/Creatinine Ratio 17.0 Glucose 109 H Calcium 9.0 Troponin I < 0.015 B-Natriuretic Peptide 467.8 H Chest x-ray reviewed and showed some trace bilateral pleural effusions EKG showed sinus rhythm with some T-wave inversion in the inferior leads Assessment/Plan Patient seen and examined independently. Data reviewed. I agree with the above note by the physician assistant coach. 1. Acute heart failure with preserved ejection fraction EF of 55% from 2014 Continue with IV Lasix Recheck echocardiogram Fluid restriction 1500 cc per day Cardiology consultation 2. Chest pain Atypical Cycle troponins Cardiology consultation Consider stress testing once patient further medically optimized from his heart failure 3. Hypothyroidism Continue with methimazole Check TSH 4. A. fib Continue beta-seth Not a candidate for oral anticoagulants given fall history Code Visit Inpatient E&M: 64930 Init Hosp L3
--- NOTE | 2017-12-05 15:03 | HP.PCM_ITS ---
<Dung Morel - Last Filed: 12/05/17 14:58> Problem List (1) CHF (congestive heart failure) Status: Acute (2) Chronic atrial fibrillation Status: Chronic (3) Kidney disease, chronic, stage III (GFR 30-59 ml/min) Status: Chronic (4) Hyperlipidemia Status: Chronic (5) Hypothyroidism Status: Chronic (6) Hypertension Status: Chronic (7) Cardiac pacemaker Status: Chronic Comment: Pacemaker implant June 2005; Pacemaker generator change 11/28/12; (8) S/P PTCA (percutaneous transluminal coronary angioplasty) Status: Chronic Comment: 02/20/98 PTCA to end stent restenosis of mid cx; 07/18 PTCA/stent of obtuse marginal & distal CX; 09/13/97 Rotational atherectomy of CX; 09/25/97, 11/01/97 PTSC/stent of CX; PTCA with stenting of LAD02/21/03; History of Present Illness Date of Admission: 12/05/17 Chief Complaint: SOB The patient is a 82 year old M with a hx of chronic diastolic CHF, chronic Afib , CAD s/p double CABG and 4x stents, pt of Dr. Jeffers, HTN, HLD, hypothyroid , CKDIII, who presents to the ER with SOB. He was in the ER on Wednesday with increased SOB, was told to take additional lasix for [address] more [address] Jeffers in the office the next day. He did not improve at home. He progressively became more dyspneic especially with exertion, and especially when attempting to lay flat. He could not sleep because he was very SOB at night. He has had an occasional productive cough with phlegm. He has no fevers or chills. He has intermittent swelling of his BLE, L>R (always worse since CABG ). He also has had intermittent CP the previous week. He states it is short stabbing pains in his middle and left sided anterior chest wall. No dizziness or LH. [] Past Medical History Past Medical History (Chronic Problems): Chronic Problems (Last Reviewed 12/05/17 @ 15:18 by Johnson Roque DO) Atherosclerosis of coronary artery of [place] heart without angina pectoris ( Chronic) Chronic atrial fibrillation (Chronic) Encounter for long-term current use of high risk medication (Chronic) Abnormal result of cardiovascular function study (Chronic) Chronic diastolic (congestive) heart failure (Chronic) Atherosclerosis of coronary artery bypass graft without angina pectoris (Chronic ) Paroxysmal atrial fibrillation (Chronic) Thyroid dysfunction (Chronic) Mild hyperthyroidism. Will order thyroid US and antibodies. Start on low dose tapazole. 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) CABG November 1997, ROMERO to LAD, SVG from aorta to ramus intermedius artery Coronary artery disease (Chronic) Sick sinus syndrome (Chronic) Kidney disease, chronic, stage III (GFR 30-59 ml/min) (Chronic) Hyperlipidemia (Chronic) Hypothyroidism (Chronic) Hypertension (Chronic) Afib (Chronic) Cardiac pacemaker (Chronic) Pacemaker implant June 2005; Pacemaker generator change 11/28/12; S/P PTCA (percutaneous transluminal coronary angioplasty) (Chronic) 02/20/98 PTCA to end stent restenosis of mid cx; 07/18/97 PTCA/stent of obtuse marginal & distal CX; 09/13/97 Rotational atherectomy of CX; 09/25/97, 11/01/97 PTSC/ stent of CX; PTCA with stenting of LAD02/21/03; Thyroid disease (Chronic) Medical History: Medical History (Last Reviewed 11/05/17 @ 11:04 by Maricarmen Blank) Coronary artery disease (Chronic) I25.10 Hypertension (Chronic) I10 Afib (Chronic) I48.91 Cardiac pacemaker (Chronic) Z95.0 Pacemaker implant June 2005; Pacemaker generator change 11/28/12; Afib I48.91 Anemia D64.9 Atrial flutter I48.92 CAD (coronary artery disease) I25.10 CHF (congestive heart failure) I50.9 Cardiomyopathy I42.9 Eyelid retraction unspecified eye, unspecified lid H02.539 Hyperlipidemia E78.5 Myocardial infarction I21.9 Orthostatic hypotension I95.1 Partial bowel obstruction K56.600 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 ureteral stent HTN (hypertension) I10 Allergies No Known Allergies Allergy (Verified 12/02/17 13:27) Home Medications: Ambulatory Orders Medication Instructions Recorded Aspirin [Aspirin, Baby] 81 mg PO DAILY@0800 #0 tab.chew 11/26/14 Ergocalciferol [Vitamin D] 50,000 unit PO QMONTH #0 cap 11/26/14 Finasteride [Proscar] 5 mg PO DAILY #30 tab 11/26/14 Folic Acid 1 mg PO DAILY@0800 #0 tab 11/26/14 Nitroglycerin [Nitrostat] 0.4 mg SUBLINGUAL Q5M PRN #1 bottle 11/26/14 Omeprazole [Prilosec] 20 mg PO DAILY 02/19/15 Rosuvastatin Calcium [Crestor] 40 mg PO DAILY 02/19/15 Lipo-Flavonoid Plus 2 tab PO BID 12/13/15 multivitamin tablet 1 tab PO QAM 04/08/17 Calcium Phosphate Trib/Vit D3 1 ea PO DAILY 07/29/17 [Citracal + D3 Gummies] Tamsulosin HCl [Flomax] 0.4 mg PO DAILY 07/29/17 methimazole 5 mg tablet 5 mg PO .COMPLEX #12 tab 08/12/17 metoprolol succinate ER 25 mg 25 mg PO BID #60 tab 11/05/17 tablet,extended release 24 hr furosemide 20 mg tablet 20 mg PO QDAY #30 tab 12/02/17 Surgical History: Surgical History (Last Reviewed 11/05/17 @ 11:04 by Maricarmen Blank) 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) Z95.1 CABG November 1997, ROMERO to LAD, SVG from aorta to ramus intermedius artery S/P PTCA (percutaneous transluminal coronary angioplasty) (Chronic) Z98.61 02/20/98 PTCA to end stent restenosis of mid cx; 07/18/97 PTCA/stent of obtuse marginal & distal CX; 09/13/97 Rotational atherectomy of CX; 09/25/97, 11/01/97 PTSC/ stent of CX; PTCA with stenting of LAD02/21/03; H/O hernia repair Z98.890, Z87.19 H/O myringoplasty Z98.890 Hx of CABG Z95.1 Hx of cholecystectomy Z98.890, Z90.49 Surgical History: cholecystectomy, coronary bypass surgery, herniorrhaphy, - - CABG ?2, pacemaker, PCI ?4, left shoulder surgery, tonsillectomy.laproscopic surgery of abd Psychiatric History: No pertinent psych hx Lives: Alone Smoking Status: Former smoker Drugs: None - *Family History Paternal Family History: Family History (Last Reviewed 11/05/17 @ 11:04 by Maricarmen Blank) Father Lung cancer CVA (cerebral vascular accident) Brother Sudden cardiac History Items: Cancer, - Maternal Family History: Family History (Last Reviewed 11/05/17 @ 11:04 by Maricarmen Blank) Father Lung cancer CVA (cerebral vascular accident) Brother Sudden cardiac History Items: - - according to her 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 Dyspnea. Denies: Palpitations Respiratory: Reports: Cough, Shortness of Breath, Shortness of breath at rest, Shortness of breath upon exertion, Sputum production Gastrointestinal: Denies: Abdominal Pain, Nausea, Vomiting Genitourinary: Denies: Dysuria Musculoskeletal: Denies: Joint Pain, Joint Tenderness Skin: Denies: Rash, Wounds Neurological: Denies: Numbness, Tingling, Focal weakness Psychiatric: Denies: Anxiety, Depression, Homicidal Ideations, Suicidal Ideations Hematologic/ Lymphatic: Denies: Easy Bruising, Easy Bleeding VTE Information - Inpt Only VTE Present on Admission: No VTE Mechan Device Prophylaxis: None VTE Pharm Prophylaxis ordered?: Yes Patient Problems: Active and Suspected Problems (Last Reviewed 12/05/17 @ 15:18 by Johnson Roque DO) CHF (congestive heart failure) (Acute) - Physical Exam General: Alert, Oriented x3, Cooperative HEENT: Atraumatic, PERRLA, EOMI, Normocephalic Neck: Supple, No JVD, Negative Carotid Bruits Lungs: Clear to auscultation, Diminished Cardiovascular: No murmurs, Irregular Rate, Tachycardic Abdomen: Bowel Sounds Present, Soft, Non Tender Extremities: No edema, Capillary Refill Less than 3 Seconds Skin: No rashes, No breakdown Musculoskeletal: No Tenderness to Palpation of Joints or Extremities Neurological: Cranial nerves II-XII grossly intact Psych/Mental Status: Normal Affect, Appropriate, Alert and oriented to time, place, person, mood and affect Vital Signs Temp Pulse Resp BP Pulse Ox 98.1 F 112 H 18 151/68 H 97 12/05/17 11:57 12/05/17 14:38 12/05/17 14:38 12/05/17 14:38 12/05/17 14:38 Assessment/Plan All Active Problems (Last Reviewed 12/05/17 @ 15:18 by Johnson Roque DO) CHF (congestive heart failure) (Acute) Hyperthyroidism (Acute) Partial bowel obstruction (Acute) 1. Acute diastolic CHF exacerbation - last echo EF 55%. Start IV lasix. Repeat Echo in AM. BNP elevated. CXR with COPD, minimal peripheral edema at this time, lungs are clear but diminished, not requiring additional O2. 2. Chest pain - new t wave inversions on EKG since july EKG. Negative troponin. Maintain on tele and cycle enzymes. Cardiology will be consulted. 3. CKD III - appears mildly above baseline. Repeat BMP in AM. 4. CAD - prior CABG, stents 5. Chronic Afib - not on OAC per cardiology office note this is 2/2 a hx of falls- continue beta seth , mildly tachy, has Pacemaker. 6. HLD - statin 7. HTN - stable 8. hyperthyroidism - on methimazole. DVT ppx: heparin DC planning: ptot, hx of falls. This patient was seen by Dung Morel PA-C under the supervision of Dr. Roque. <Johnson Roque - Last Filed: 12/05/17 15:23> Problem List (1) CHF (congestive heart failure) Status: Acute Qualifiers: Heart failure type: unspecified Heart failure chronicity: acute Qualified Code(s): I50.9 - Heart failure, unspecified History of Present Illness The patient is a 82 year old M persistent feeling of getting smothered. He describes orthopnea as a shortness of breath gets worse when he lies flat. Does complain of chest pain but is intermittent and not exertional. Once a cardiology office and on the and received Lasix but was not getting better and then came to the hospital. Patient had an elevated BNP but was not hypoxic. Chest x-ray shows some small pleural effusions in the bases. Patient received IV Lasix in the emergency room. He states that he is feeling better since that Lasix. Patient also does state that he is having some increasing lower extremity edema with his left leg being greater than his right given the previous venous harvesting. [] Past Medical History Medical History: Medical History (Last Reviewed 12/05/17 @ 15:18 by Johnson Roque DO) Coronary artery disease (Chronic) I25.10 Hypertension (Chronic) I10 Afib (Chronic) I48.91 Cardiac pacemaker (Chronic) Z95.0 Pacemaker implant June 2005; Pacemaker generator change 11/28/12; Afib I48.91 Anemia D64.9 Atrial flutter I48.92 CAD (coronary artery disease) I25.10 CHF (congestive heart failure) I50.9 Cardiomyopathy I42.9 Eyelid retraction unspecified eye, unspecified lid H02.539 Hyperlipidemia E78.5 Myocardial infarction I21.9 Orthostatic hypotension I95.1 Partial bowel obstruction K56.600 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 ureteral stent HTN (hypertension) I10 Allergies No Known Allergies Allergy (Verified 12/02/17 13:27) Surgical History: Surgical History (Last Reviewed 12/05/17 @ 15:18 by Johnson Roque DO) 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) Z95.1 CABG November 1997, ROMERO to LAD, SVG from aorta to ramus intermedius artery S/P PTCA (percutaneous transluminal coronary angioplasty) (Chronic) Z98.61 02/20/98 PTCA to end stent restenosis of mid cx; 07/18/97 PTCA/stent of obtuse marginal & distal CX; 09/13/97 Rotational atherectomy of CX; 09/25/97, 11/01/97 PTSC/ stent of CX; PTCA with stenting of LAD02/21/03; H/O hernia repair Z98.890, Z87.19 H/O myringoplasty Z98.890 Hx of CABG Z95.1 Hx of cholecystectomy Z98.890, Z90.49 Surgical History: cholecystectomy, coronary bypass surgery, herniorrhaphy, - Psychiatric History: No pertinent psych hx Lives: Alone Smoking Status: Former smoker Drugs: None - *Family History Paternal Family History: Family History (Last Reviewed 12/05/17 @ 15:18 by Johnson Roque DO) Father Lung cancer CVA (cerebral vascular accident) Brother Sudden cardiac Maternal Family History: Family History (Last Reviewed 12/05/17 @ 15:18 by Johnson Roque DO) Father Lung cancer CVA (cerebral vascular accident) Brother Sudden cardiac Review of Systems Constitutional: Denies: Chills, Fever, Weight Change HEENT: Denies: Head Aches, Sinus Congestion, Sinus Drainage Cardiovascular: Reports: Chest Pain, Edema, Orthopnea. Denies: Palpitations, Paroxysmal Noc. Dyspnea Respiratory: Reports: Cough, Shortness of Breath, Shortness of breath at rest, Shortness of breath upon exertion, Sputum production Gastrointestinal: Denies: Abdominal Pain, Nausea, Vomiting Genitourinary: Denies: Dysuria Musculoskeletal: Denies: Joint Pain, Joint Tenderness Skin: Denies: Rash, Wounds Neurological: Denies: Focal weakness, Numbness, Tingling Psychiatric: Denies: Anxiety, Depression, Homicidal Ideations, Suicidal Ideations Hematologic/ Lymphatic: Denies: Easy Bruising, Easy Bleeding Comment: All review of systems are negative except as mentioned in the history of present illness and the other review of systems. VTE Information - Inpt Only VTE Present on Admission: No VTE Mechan Device Prophylaxis: None VTE Pharm Prophylaxis ordered?: Yes - Physical Exam General: Alert, Cooperative, No apparent distress HEENT: Atraumatic, Normocephalic Neck: No JVD, No Nodes, Thyroid Normal Size and Texture Lungs: Clear to auscultation, Normal air movement, No rhonchi, No wheeze Cardiovascular: Regular rate, Regular Rhythm, Normal S1 Abdomen: Bowel Sounds Present, Soft, Non Tender, Non-Distended Extremities: No Calf Tenderness, - - Trace edema in bilateral lower extremities with left being slightly greater than the right. Skin: No rashes, No breakdown Neurological: Cranial nerves II-XII grossly intact, Neuro grossly intact Psych/Mental Status: Normal Affect, Appropriate Vital Signs Temp Pulse Resp BP Pulse Ox 36.7 C 112 H 18 151/68 H 97 12/05/17 11:57 12/05/17 14:38 12/05/17 14:38 12/05/17 14:38 12/05/17 14:38 Laboratory Results - last 24 hr 12/05/17 12/05/17 12/05/17 13:05 13:05 13:05 WBC 5.6 RBC 3.75 L Hgb 11.2 L Hct 34.1 L MCV 90.9 MCH 29.9 MCHC 32.8 RDW 14.9 H RDW Differential 49.6 H Plt Count 166 MPV 9.7 Immature Gran % (Auto) 0.000 Neut % (Auto) 65.5 Lymph % (Auto) 22.9 [place] % (Auto) 9.6 Eos % (Auto) 1.3 Baso % (Auto) 0.7 Absolute Neuts (auto) 3.7 Absolute Lymphs (auto) 1.28 Total Counted Not Reportable Sodium 146 H Potassium 3.9 Chloride 110 H Carbon Dioxide 26.0 Anion Gap 10 BUN 25 H Creatinine 1.47 H Estim Creat Clear Calc 38.13 Est GFR (MDRD) Af Amer 59 L Est GFR (MDRD) Non-Af 49 L BUN/Creatinine Ratio 17.0 Glucose 109 H Calcium 9.0 Troponin I < 0.015 B-Natriuretic Peptide 467.8 H Chest x-ray reviewed and showed some trace bilateral pleural effusions EKG showed sinus rhythm with some T-wave inversion in the inferior leads Assessment/Plan Patient seen and examined independently. Data reviewed. I agree with the above note by the physician social science research assistant. 1. Acute heart failure with preserved ejection fraction * EF of 55% from 2015 * Continue with IV Lasix * Recheck echocardiogram * Fluid restriction 1500 cc per day * Cardiology consultation 2. Chest pain * Atypical * Cycle troponins * Cardiology consultation * Consider stress testing once patient further medically optimized from his heart failure 3. Hypothyroidism * Continue with methimazole * Check TSH 4. A. fib * Continue beta-seth * Not a candidate for oral anticoagulants given fall history Code Visit Inpatient E&M: 95107 Init Hosp L3
[2017-12-05 16:02] LABS: Thyroid Stim Hormone (TSH) 0.78 uIU/mL (0.358-3.74)
[2017-12-05] MEDS: Tamsulosin HCl 0.4 MG Capsule PO (17:17)
[2017-12-05] MEDS: 0.9% NaCl Peripheral Flush Adult/Peds IV (17:17)
--- NOTE | 2017-12-05 19:51 | NURSING ---
Notified Dr. Yarbrough of consult, he said to let Dr. Leo know in am.
[2017-12-05] MEDS: Metoprolol(XL)Succ 25 MG Tablet PO (21:32)
[2017-12-05] MEDS: Atorvastatin Calcium 80 MG Tablet PO (21:33)
[2017-12-06] VITALS (15 sets, daily range): BP systolic 90–132; BP diastolic 49–78; PULSE 62–129; RESP 14–20; TEMP 36.2–37.1; O2SAT 95–98
[2017-12-06 01:47] LABS: Magnesium 2.1 mg/dL (1.6-2.6)
[2017-12-06 06:11] LABS: Anion Gap 13 (5-15); BUN 24 mg/dL (7-18); BUN/Creat Ratio 21.4 RATIO (10-20); Calcium,Total 9.3 mg/dL (8.5-10.1); Chloride 107 mmol/L (98-107); Creatinine, Serum 1.12 mg/dL (0.70-1.30); EST Glomerular Filtration Rate 67 mL/min (>60); Est Glom Filt Rate - Afr Amer 81 mL/min (>60); Estimated Creatinine Clearance 50.04 ml/min; Glucose 95 mg/dL (74-106); Potassium 3.6 mmol/L (3.5-5.1); Sodium Level 146 mmol/L (136-145)
--- NOTE | 2017-12-06 07:30 | PCM.CONS.C ---
Reason for Consult Date of Consultation: 12/06/17 Reason for Consultation: Shortness of breath. History of Present Illness: The patient is a 82 year old M with a history of hypertension chronic persistent atrial fibrillation status post pacemaker implantation coronary bypass surgery who presented to the emergency room with progressive shortness of breath over the last 5 days. He apparently had been doing well until then when he sought the physician assistant surveyor of the heart group and had some adjustments made to his diuretic therapy. He denies any chest pain or paroxysmal nocturnal dyspnea but he did develop some pedal edema and he also had a mild cough. He did not notice any rapid ventricular response to his palpitations and he says that he has been compliant with his medications. On presentation to the emergency room he was noted to be mildly short of breath his natruretic peptide was elevated and it was felt that he would benefit from IV diuretics. He was admitted and cardiology consulted for further evaluation and treatment. [] Past Medical History Allergies/Adverse Reactions: Allergies No Known Allergies Allergy (Verified 12/02/17 13:27) Home Medications: Ambulatory Orders Medication Instructions Recorded Aspirin [Aspirin, Baby] 81 mg PO DAILY@0800 #0 tab.chew 11/26/14 Ergocalciferol [Vitamin D] 50,000 unit PO QMONTH #0 cap 11/26/14 Finasteride [Proscar] 5 mg PO DAILY #30 tab 11/26/14 Folic Acid 1 mg PO DAILY@0800 #0 tab 11/26/14 Nitroglycerin [Nitrostat] 0.4 mg SUBLINGUAL Q5M PRN #1 bottle 11/26/14 Omeprazole [Prilosec] 20 mg PO DAILY 02/19/15 Rosuvastatin Calcium [Crestor] 40 mg PO DAILY 02/19/15 Lipo-Flavonoid Plus 2 tab PO BID 12/13/15 multivitamin tablet 1 tab PO QAM 04/08/17 Calcium Phosphate Trib/Vit D3 1 ea PO DAILY 07/29/17 [Citracal + D3 Gummies] Tamsulosin HCl [Flomax] 0.4 mg PO DAILY 07/29/17 methimazole 5 mg tablet 5 mg PO .COMPLEX #12 tab 08/12/17 metoprolol succinate ER 25 mg 25 mg PO BID #60 tab 11/05/17 tablet,extended release 24 hr furosemide 20 mg tablet 20 mg PO QDAY #30 tab 12/02/17 Ibuprofen 200 mg PO BID 12/05/17 Vitamin B Complex 2 each PO DAILY 12/05/17 Past Medical History (Chronic Problems): Chronic Problems (Last Reviewed 12/05/17 @ 15:18 by Johnson Roque DO) Atherosclerosis of coronary artery of [place] heart without angina pectoris (Chronic) Chronic atrial fibrillation (Chronic) Encounter for long-term current use of high risk medication (Chronic) Abnormal result of cardiovascular function study (Chronic) Chronic diastolic (congestive) heart failure (Chronic) Atherosclerosis of coronary artery bypass graft without angina pectoris (Chronic) Paroxysmal atrial fibrillation (Chronic) Thyroid dysfunction (Chronic) Mild hyperthyroidism. Will order thyroid US and antibodies. Start on low dose tapazole. 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) CABG November 1997, ROMERO to LAD, SVG from aorta to ramus intermedius artery Coronary artery disease (Chronic) Sick sinus syndrome (Chronic) Kidney disease, chronic, stage III (GFR 30-59 ml/min) (Chronic) Hyperlipidemia (Chronic) Hypothyroidism (Chronic) Hypertension (Chronic) Afib (Chronic) Cardiac pacemaker (Chronic) Pacemaker implant June 2005; Pacemaker generator change 11/28/12; S/P PTCA (percutaneous transluminal coronary angioplasty) (Chronic) 02/20/98 PTCA to end stent restenosis of mid cx; 07/18/97 PTCA/stent of obtuse marginal & distal CX; 09/13/97 Rotational atherectomy of CX; 09/25/97, 11/01/97 PTSC/stent of CX; PTCA with stenting of LAD02/21/03; Thyroid disease (Chronic) Surgical History: cholecystectomy, coronary bypass surgery, herniorrhaphy, - Psychiatric History: No pertinent psych hx - *Family History Paternal Family History: Family History (Last Reviewed 12/05/17 @ 15:18 by Johnson Roque DO) Father Lung cancer CVA (cerebral vascular accident) Brother Sudden cardiac History Items: Cancer, - Maternal Family History: Family History (Last Reviewed 12/05/17 @ 15:18 by Johnson Roque DO) Father Lung cancer CVA (cerebral vascular accident) Brother Sudden cardiac History Items: - - according to her she had every disease known to man in her sleep Lives: Alone Smoking Status: Former smoker Alcohol: None Drugs: None Review of Systems - Review of Systems General: Denies: Fever, Night Sweats, Fatigue Cardiovascular: Reports: Shortness of Breath, Shortness of Breath at Rest. Denies: Chest Discomfort, Orthopnea, PND, Peripheral Edema, Palpitations, Lightheadedness, Dizziness, Near Syncope, Syncope Respiratory: Denies: Cough, Sputum Production, Hemoptysis Gastrointestinal: Denies: Hematemesis, Hematochezia, Melena Genitourinary: Denies: Dysuria, Hematuria Skin: Denies: Rash Subjectve: Pleasant gentleman in no apparent distress Objective: Vital Signs Temp Pulse Resp BP Pulse Ox 97.1 F L 88 20 H 129/58 H 96 12/06/17 03:20 12/06/17 07:18 12/06/17 03:20 12/06/17 03:20 12/06/17 03:20 Oxygen Delivery Method Room Air Weight: 155 lb 13.869 oz Body Mass Index (BMI) 25.0 Intake and Output for Last 24 Hours 12/04/17 12/05/17 12/06/17 23:59 23:59 23:59 Intake Total 250 / 250 420 / 420 Output Total 1150 / 1150 Balance 250 / 250 -730 / -730 General: Awake, Alert, Oriented x 3 HEENT: PERRL, EOMI, Sclera Non Icteric Neck: Supple, Good ROM, No Lymph Node Enlargement Lungs: Rales - Norm Bases Cardiovascular: Irregular Rhythm, Normal S1, Normal S2, No Murmurs, No Rubs, No Gallops Vascular: No Carotid Bruits, Normal Femoral Pulses, Normal Radial Pulses, Normal Dorsalis Pedal Pulse, Normal Posterior Tibial Pulses Abdomen: Bowel Sounds Present, Soft, Non Tender, No HSM, No Organomegaly Extremities: No Cyanosis, No Clubbing, Bilateral Edema +1 Neurological: No Focal Motor or Sensory Deficit 12/05/17 16:05: Troponin I < 0.015 12/05/17 18:48: Troponin I < 0.015 12/06/17 01:30: Magnesium 2.1 12/06/17 05:30: Sodium 146 H, Potassium 3.6, Chloride 107, Carbon Dioxide 26.0, Anion Gap 13, BUN 24 H, Creatinine 1.12, Est GFR (MDRD) Af Amer 81, Est GFR (MDRD) Non-Af 67, BUN/Creatinine Ratio 21.4 H, Glucose 95, Calcium 9.3 Rhythm: EKG: Atrial fibrillation with a ventricular response rate of 91 bpm. T-wave inversions noted laterally. ECHO: Preserved ejection fraction was noted on previous echocardiogram Stress Test: Cardiac Cath: He had undergone a cardiac catheterization in 2014 which demonstrated a patent saphenous vein graft to the first diagonal vessel, and a left internal mammary artery to the left anterior descending artery which was also noted to be patent. There was evidence of moderate in-stent stenosis of the previously placed stents in the circumflex artery distribution. Medical therapy was recommended. Assessment/Plan 1. Congestive heart failure-acute diastolic The exact etiology and precipitating factors are not entirely clear. His troponin remains negative at this particular time but she does appear to be in atrial fibrillation with a rapid ventricular response rate. My recommendation would be to continue with IV diuresis. Obtain an echocardiogram to reassess his left ventricular function- Continue serial cardiac enzymes Obtain myocardial perfusion imaging to exclude ischemia. 2. Coronary artery disease. Patient has history of known coronary artery disease. T-wave inversions are noted on his EKG but it is not clear whether this is secondary to ischemia. We will continue with current medical therapy and obtain a pharmacologic myocardial perfusion stress test. 3. Hypertension His blood pressure appears to well controlled on the current medical regimen and no other major changes will be made. Will reevaluate echocardiogram for left ventricular wall thickness. 4. Atrial fibrillation. He does have evidence of chronic persistent atrial fibrillation. It is unclear whether his ventricular response rate is controlled on not. We will evaluate his pacemaker to see what his ventricular response rate has been. In the meantime he will continue with anticoagulation. 5. Status post pacemaker placement He does have a permanent pacemaker implantation and we will continue to follow this and interrogated in the office as appropriate. Thank you for allowing me to participate in the care of your patient. Please don't hesitate to call if any issues arise Addendum: Echocardiogram demonstrated overall preserved left ventricular systolic function with basal inferior hypokinesis Myocardial perfusion stress testing demonstrated evidence of basal inferior and inferolateral infarct with evidence of moderate sharon-infarct ischemia. Based on the above it may be prudent to reassess his coronary anatomy especially with his T-wave inversions which are noted laterally. We discussed with the patient.
--- NOTE | 2017-12-06 07:34 | CON.PCM_ITS ---
Reason for Consult Date of Consultation: 12/06/17 Reason for Consultation: Shortness of breath. History of Present Illness: The patient is a 82 year old M with a history of hypertension chronic persistent atrial fibrillation status post pacemaker implantation coronary bypass surgery who presented to the emergency room with progressive shortness of breath over the last 5 days. He apparently had been doing well until then when he sought the physician assistant professor of physics of the heart group and had some adjustments made to his diuretic therapy. He denies any chest pain or paroxysmal nocturnal dyspnea but he did develop some pedal edema and he also had a mild cough. He did not notice any rapid ventricular response to his palpitations and he says that he has been compliant with his medications. On presentation to the emergency room he was noted to be mildly short of breath his natruretic peptide was elevated and it was felt that he would benefit from IV diuretics. He was admitted and cardiology consulted for further evaluation and treatment. [] Past Medical History Allergies/Adverse Reactions: Allergies No Known Allergies Allergy (Verified 12/02/17 13:27) Home Medications: Ambulatory Orders Medication Instructions Recorded Aspirin [Aspirin, Baby] 81 mg PO DAILY@0800 #0 tab.chew 11/26/14 Ergocalciferol [Vitamin D] 50,000 unit PO QMONTH #0 cap 11/26/14 Finasteride [Proscar] 5 mg PO DAILY #30 tab 11/26/14 Folic Acid 1 mg PO DAILY@0800 #0 tab 11/26/14 Nitroglycerin [Nitrostat] 0.4 mg SUBLINGUAL Q5M PRN #1 bottle 11/26/14 Omeprazole [Prilosec] 20 mg PO DAILY 02/19/15 Rosuvastatin Calcium [Crestor] 40 mg PO DAILY 02/19/15 Lipo-Flavonoid Plus 2 tab PO BID 12/13/15 multivitamin tablet 1 tab PO QAM 04/08/17 Calcium Phosphate Trib/Vit D3 1 ea PO DAILY 07/29/17 [Citracal + D3 Gummies] Tamsulosin HCl [Flomax] 0.4 mg PO DAILY 07/29/17 methimazole 5 mg tablet 5 mg PO .COMPLEX #12 tab 08/12/17 metoprolol succinate ER 25 mg 25 mg PO BID #60 tab 11/05/17 tablet,extended release 24 hr furosemide 20 mg tablet 20 mg PO QDAY #30 tab 12/02/17 Ibuprofen 200 mg PO BID 12/05/17 Vitamin B Complex 2 each PO DAILY 12/05/17 Past Medical History (Chronic Problems): Chronic Problems (Last Reviewed 12/05/17 @ 15:18 by Johnson Roque DO) Atherosclerosis of coronary artery of [place] without angina pectoris ( Chronic) Chronic atrial fibrillation (Chronic) Encounter for long-term current use of high risk medication (Chronic) Abnormal result of cardiovascular function study (Chronic) Chronic diastolic (congestive) heart failure (Chronic) Atherosclerosis of coronary artery bypass graft without angina pectoris (Chronic ) Paroxysmal atrial fibrillation (Chronic) Thyroid dysfunction (Chronic) Mild hyperthyroidism. Will order thyroid US and antibodies. Start on low dose tapazole. 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) CABG November 1997, ROMERO to LAD, SVG from aorta to ramus intermedius artery Coronary artery disease (Chronic) Sick sinus syndrome (Chronic) Kidney disease, chronic, stage III (GFR 30-59 ml/min) (Chronic) Hyperlipidemia (Chronic) Hypothyroidism (Chronic) Hypertension (Chronic) Afib (Chronic) Cardiac pacemaker (Chronic) Pacemaker implant June 2005; Pacemaker generator change 11/28/12; S/P PTCA (percutaneous transluminal coronary angioplasty) (Chronic) 02/20/98 PTCA to end stent restenosis of mid cx; 07/18/97 PTCA/stent of obtuse marginal & distal CX; 09/13/97 Rotational atherectomy of CX; 09/25/97, 11/01/97 PTSC/ stent of CX; PTCA with stenting of LAD02/21/03; Thyroid disease (Chronic) Surgical History: cholecystectomy, coronary bypass surgery, herniorrhaphy, - Psychiatric History: No pertinent psych hx - *Family History Paternal Family History: Family History (Last Reviewed 12/05/17 @ 15:18 by Johnson Roque DO) Father Lung cancer CVA (cerebral vascular accident) Brother Sudden cardiac History Items: Cancer, - Maternal Family History: Family History (Last Reviewed 12/05/17 @ 15:18 by Johnson Roque DO) Father Lung cancer CVA (cerebral vascular accident) Brother Sudden cardiac History Items: - - according to her she had every disease known to man in her sleep Lives: Alone Smoking Status: Former smoker Alcohol: None Drugs: None Review of Systems - Review of Systems General: Denies: Fever, Night Sweats, Fatigue Cardiovascular: Reports: Shortness of Breath, Shortness of Breath at Rest. Denies: Chest Discomfort, Orthopnea, PND, Peripheral Edema, Palpitations, Lightheadedness, Dizziness, Near Syncope, Syncope Respiratory: Denies: Cough, Sputum Production, Hemoptysis Gastrointestinal: Denies: Hematemesis, Hematochezia, Melena Genitourinary: Denies: Dysuria, Hematuria Skin: Denies: Rash Subjectve: Pleasant gentleman in no apparent distress Objective: Vital Signs Temp Pulse Resp BP Pulse Ox 97.1 F L 88 20 H 129/58 H 96 12/06/17 03:20 12/06/17 07:18 12/06/17 03:20 12/06/17 03:20 12/06/17 03:20 Oxygen Delivery Method Room Air Weight: 155 lb 13.869 oz Body Mass Index (BMI) 25.0 Intake and Output for Last 24 Hours 12/04/17 12/05/17 12/06/17 23:59 23:59 23:59 Intake Total 250 / 250 420 / 420 Output Total 1150 / 1150 Balance 250 / 250 -730 / -730 General: Awake, Alert, Oriented x 3 HEENT: PERRL, EOMI, Sclera Non Icteric Neck: Supple, Good ROM, No Lymph Node Enlargement Lungs: Rales - Norm Bases Cardiovascular: Irregular Rhythm, Normal S1, Normal S2, No Murmurs, No Rubs, No Gallops Vascular: No Carotid Bruits, Normal Femoral Pulses, Normal Radial Pulses, Normal Dorsalis Pedal Pulse, Normal Posterior Tibial Pulses Abdomen: Bowel Sounds Present, Soft, Non Tender, No HSM, No Organomegaly Extremities: No Cyanosis, No Clubbing, Bilateral Edema +1 Neurological: No Focal Motor or Sensory Deficit 12/05/17 16:05: Troponin I < 0.015 12/05/17 18:48: Troponin I < 0.015 12/06/17 01:30: Magnesium 2.1 12/06/17 05:30: Sodium 146 H, Potassium 3.6, Chloride 107, Carbon Dioxide 26.0, Anion Gap 13, BUN 24 H, Creatinine 1.12, Est GFR (MDRD) Af Amer 81, Est GFR ( MDRD) Non-Af 67, BUN/Creatinine Ratio 21.4 H, Glucose 95, Calcium 9.3 Rhythm: EKG: Atrial fibrillation with a ventricular response rate of 91 bpm. T-wave inversions noted laterally. ECHO: Preserved ejection fraction was noted on previous echocardiogram Stress Test: Cardiac Cath: He had undergone a cardiac catheterization in 2014 which demonstrated a patent saphenous vein graft to the first diagonal vessel, and a left internal mammary artery to the left anterior descending artery which was also noted to be patent. There was evidence of moderate in-stent stenosis of the previously placed stents in the circumflex artery distribution. Medical therapy was recommended. Assessment/Plan 1. Congestive heart failure-acute diastolic * The exact etiology and precipitating factors are not entirely clear. His troponin remains negative at this particular time but she does appear to be in atrial fibrillation with a rapid ventricular response rate. My recommendation would be to continue with IV diuresis. * Obtain an echocardiogram to reassess his left ventricular function- * Continue serial cardiac enzymes * Obtain myocardial perfusion imaging to exclude ischemia. * 2. Coronary artery disease. * Patient has history of known coronary artery disease. T-wave inversions are noted on his EKG but it is not clear whether this is secondary to ischemia. * We will continue with current medical therapy and obtain a pharmacologic myocardial perfusion stress test. * 3. Hypertension * His blood pressure appears to well controlled on the current medical regimen and no other major changes will be made. * Will reevaluate echocardiogram for left ventricular wall thickness. * 4. Atrial fibrillation. * He does have evidence of chronic persistent atrial fibrillation. It is unclear whether his ventricular response rate is controlled on not. We will evaluate his pacemaker to see what his ventricular response rate has been. In the meantime he will continue with anticoagulation. * 5. Status post pacemaker placement * He does have a permanent pacemaker implantation and we will continue to follow this and interrogated in the office as appropriate. * * Thank you for allowing me to participate in the care of your patient. Please don't hesitate to call if any issues arise * Addendum: Echocardiogram demonstrated overall preserved left ventricular systolic function with basal inferior hypokinesis Myocardial perfusion stress testing demonstrated evidence of basal inferior and inferolateral infarct with evidence of moderate sharon-infarct ischemia. Based on the above it may be prudent to reassess his coronary anatomy especially with his T-wave inversions which are noted laterally. We discussed with the patient.
--- NOTE | 2017-12-06 07:54 | NURSING ---
NUCLEAR OPERATIONS SPECIALIST called to inform the pt was dizzy upon standing, this nurse came in to assess pt, VS stable and pt no longer experinecing dizziness. will continue to monitor.
[2017-12-06] MEDS: Aspirin 81 MG TAB.CHEW PO (08:40)
[2017-12-06] MEDS: Multivitamins,Therapeutic Tablet 1 TABLET PO (08:41)
[2017-12-06] MEDS: Calcium Carb/Vitamin D 1 TABLET Tablet PO (08:41)
[2017-12-06] MEDS: Finasteride 5 MG Tablet PO (08:41)
[2017-12-06] MEDS: Folic Acid 1 MG Tablet PO (08:41)
[2017-12-06] MEDS: Methimazole 5 MG Tablet PO (08:42)
[2017-12-06] MEDS: Pantoprazole Sodium 20 MG Tablet PO (08:42)
--- NOTE | 2017-12-06 10:24 | CASEMGMT ---
See RN CM assessment link. DC PLAN: undetermined. pt was independent prior to admission. Ashley ANDRESN RN ACM
--- NOTE | 2017-12-06 11:49 | STRESSREP ---
Stress Test Report Pharmacologic myocardial perfusion stress test. 82-year-old man with a history of coronary artery disease who presents with congestive heart failure. Stress protocol: Resting EKG demonstrates atrial fibrillation with a rate of 110 bpm and T-wave inversions noted in lead V2 through the 5. 0.4 mg of regadenoson was infused per usual protocol followed by rapid intravenous saline flush injection continuous EKG monitoring was performed. The patient maintained atrial fibrillation throughout the recording with occasional ventricular paced beats. The maximum heart rate attained was 139 bpm which was 84% of maximum predicted heart rate the maximum workload was 1 metabolic equivalent. The resting blood pressure was 138/80 with a final blood pressure 108/62 mmHg. No clinical angina was noted. Myocardial perfusion protocol. 11.9 mCi of technetium 99m sestamibi was injected at rest. 0.4 mg of regadenoson was infused per usual protocol. At peak infusion 32.6 mCi of technetium 99m sestamibi was injected stress images were obtained stress and rest images were reconstructed and compared in the short axis vertical long and horizontal long axis. Gated images were also obtained. Perfusion SPECT analysis: Review of the stress images demonstrate normal uptake of tracer noted in the anterior wall septum as well as mid to distal inferior wall. The basal to mid inferior wall and inferolateral wall has a moderate perfusion defect. The resting images demonstrate mild amount of improvement in this suggesting a mild amount of sharon-infarct ischemia present. The basal inferior wall is noted to be fixed. Gated SPECT analysis: The gated ejection fraction is noted to be 51%. Conclusion: Mildly abnormal pharmacologic myocardial perfusion stress test with evidence of inferior basal infarct and mild sharon-infarct ischemia. Preserved ejection fraction.
[2017-12-06] MEDS: Furosemide 40 MG/4 ML Vial IV (12:37)
[2017-12-06] MEDS: Enoxaparin 40 MG/0.4 ML Syringe SC (13:14)
[2017-12-06] MEDS: Metoprolol(XL)Succ 25 MG Tablet PO ×2 (13:14→21:49)
--- NOTE | 2017-12-06 14:05 | PCM.PROGNOTE ---
<Dung Morel - Last Filed: 12/06/17 14:05> Patient Problems: Active and Suspected Problems (Last Reviewed 12/05/17 @ 15:18 by Johnson Roque DO) CHF (congestive heart failure) (Acute) Subjective: SOB improved. No CP. No palp. No cough. Abnormal stres this AM - cath in AM. - Physical Exam General: Alert, Oriented x3, Cooperative HEENT: Atraumatic, PERRLA, EOMI, Normocephalic Neck: Supple, No JVD, Negative Carotid Bruits Lungs: Clear to auscultation, Normal air movement Cardiovascular: No murmurs, Irregular Rate Abdomen: Bowel Sounds Present, Soft, Non Tender Extremities: Capillary Refill Less than 3 Seconds, Edema - mild 1+ left leg pitting edema. Skin: No rashes, No breakdown Musculoskeletal: No Tenderness to Palpation of Joints or Extremities Neurological: Cranial nerves II-XII grossly intact Psych/Mental Status: Normal Affect, Appropriate, Alert and oriented to time, place, person, mood and affect Vital Signs Temp Pulse Resp BP Pulse Ox 98.7 F 109 H 18 95/55 L 95 12/06/17 09:20 12/06/17 13:14 12/06/17 09:20 12/06/17 09:20 12/06/17 09:20 Oxygen Delivery Method Room Air Weight: 155 lb 13.869 oz Body Mass Index (BMI) 25.0 Intake and Output for Last 24 Hours 12/04/17 12/05/17 12/06/17 23:59 23:59 23:59 Intake Total 250 / 250 540 / 540 Output Total 1270 / 1270 Balance 250 / 250 -730 / -730 Laboratory Tests Past 24 Hrs 12/05/17 12/05/17 12/06/17 16:05 18:48 01:30 Sodium Potassium Chloride Carbon Dioxide Anion Gap BUN Creatinine Estim Creat Clear Calc Est GFR (MDRD) Af Amer Est GFR (MDRD) Non-Af BUN/Creatinine Ratio Glucose Calcium Magnesium 2.1 Troponin I < 0.015 < 0.015 12/06/17 05:30 Sodium 146 H Potassium 3.6 Chloride 107 Carbon Dioxide 26.0 Anion Gap 13 BUN 24 H Creatinine 1.12 Estim Creat Clear Calc 50.04 Est GFR (MDRD) Af Amer 81 Est GFR (MDRD) Non-Af 67 BUN/Creatinine Ratio 21.4 H Glucose 95 Calcium 9.3 Magnesium Troponin I Medical Necessity - Tobacco Use Smoking Status: Former smoker Assessment/Plan All Active Problems (Last Reviewed 12/05/17 @ 15:18 by Johnson Roque DO) CHF (congestive heart failure) (Acute) Hyperthyroidism (Acute) Partial bowel obstruction (Acute) 1. Acute diastolic CHF exacerbation - last echo EF 55%. Echo today with EF 60%, 1+ MVI. Abnormal stress today, cath in AM. Dr. Leo following. Continue lasix. Overall improved. Lungs clear, no O2 requirement. 2. Chest pain - new t wave inversions on EKG since july EKG. Negative troponins. As above, abnormal stress, so cath in AM. 3. CKD III - appears mildly above baseline. Repeat BMP is actually improved with lasix. 4. CAD - prior CABG, stents 5. Chronic Afib - not on OAC per cardiology office note this is 2/2 a hx of falls- continue beta seth , mildly tachy, has Pacemaker - to be interrogated today. 6. HLD - statin 7. HTN - stable 8. hyperthyroidism - on methimazole. TSH normal. DVT ppx: heparin DC planning: ptot, hx of falls. This patient was seen by Dung Morel PA-C under the supervision of Dr. Roque. <Johnson Roque - Last Filed: 12/06/17 14:16> Subjective: breathing better. less orthopnea. did a a very brief (few seconds) where he felt he was being smothered. - Physical Exam General: Alert, Cooperative HEENT: Atraumatic, Normocephalic Lungs: Clear to auscultation, Normal air movement, No rhonchi, No wheeze Cardiovascular: No murmurs, Irregular Rate Abdomen: Bowel Sounds Present, Soft, Non Tender, Non-Distended Skin: No rashes, No breakdown Psych/Mental Status: Normal Affect, Appropriate Vital Signs Temp Pulse Resp BP Pulse Ox 37.1 C 109 H 18 95/55 L 95 12/06/17 09:20 12/06/17 13:14 12/06/17 09:20 12/06/17 09:20 12/06/17 09:20 Oxygen Delivery Method Room Air Weight: 70.7 kg Body Mass Index (BMI) 25.0 Intake and Output for Last 24 Hours 12/04/17 12/05/17 12/06/17 23:59 23:59 23:59 Intake Total 250 / 250 540 / 540 Output Total 1270 / 1270 Balance 250 / 250 -730 / -730 Laboratory Tests Past 24 Hrs 12/05/17 12/05/17 12/06/17 16:05 18:48 01:30 Sodium Potassium Chloride Carbon Dioxide Anion Gap BUN Creatinine Estim Creat Clear Calc Est GFR (MDRD) Af Amer Est GFR (MDRD) Non-Af BUN/Creatinine Ratio Glucose Calcium Magnesium 2.1 Troponin I < 0.015 < 0.015 12/06/17 05:30 Sodium 146 H Potassium 3.6 Chloride 107 Carbon Dioxide 26.0 Anion Gap 13 BUN 24 H Creatinine 1.12 Estim Creat Clear Calc 50.04 Est GFR (MDRD) Af Amer 81 Est GFR (MDRD) Non-Af 67 BUN/Creatinine Ratio 21.4 H Glucose 95 Calcium 9.3 Magnesium Troponin I Assessment/Plan Patient seen and examined independently. Data reviewed. I agree with the above note by the physician materials assistant. 1. Acute heart failure with preserved ejection fraction EF of 55% from 2014 Continue with IV Lasix Recheck echocardiogram Fluid restriction 1500 cc per day Cardiology consultation 2. Chest pain Atypical Cycle troponins Cardiology consultation Stress positive, [facility] for 12/07 ASA, HIS, BB 3. Hypothyroidism Continue with methimazole stable TSH WNL 4. A. fib Continue beta-seth Not a candidate for oral anticoagulants given fall history Code Visit Inpatient E&M: 34434 Subs Hosp L2
--- NOTE | 2017-12-06 16:26 | NURSING ---
[employer] CONSULTANT called out to this nurse stating pt stated he does note feel good. this nurse assessed VS and pt. BP 90/49. this nurse contacted ALFREDO hernandez. jeanne ordered 250ml bolus and stop IV lasix. this nurse assessed BP after bolus administered, bp 100/50, contacted jeanne FUENTES, no new orders, contunie to monitor pt.
[2017-12-06] MEDS: Tamsulosin HCl 0.4 MG Capsule PO (16:42)
[2017-12-06] MEDS: Clopidogrel Bisulfate 300 MG Tablet PO (18:06)
[2017-12-06] MEDS: Atorvastatin Calcium 80 MG Tablet PO (21:49)
[2017-12-07] VITALS (24 sets, daily range): BP systolic 91–136; BP diastolic 53–86; PULSE 67–169; RESP 14–16; TEMP 36.3–37; O2SAT 94–97
[2017-12-07 04:39] LABS: Bacteria 0 SEEN /hpf (None Seen); Mucous, Urine 0 SEEN /hpf (<or=2+); Red Blood Cells-Urine 0 SEEN /hpf (0-5); Squamous Epithelial Cells - UA 0 SEEN /hpf (0-5); White Blood Cells 0 SEEN /hpf (0-5)
[2017-12-07 04:42] LABS: Color, Urine Yellow (Yellow); Glucose, Dipstick Normal (Normal); Ketone-Dipstick 5 mg/dl (Negative); Leukocyte Esterase-Dipstick Negative /ul (Negative); Nitrite-Dipstick Negative (Negative); Occult Blood-Urine 10 /ul (Negative); Protein-Dipstick 15 mg/dl (Negative); Urine Bilirubin Dipstick Negative (Negative); Urine Clarity Clear (Clear); Urine Urobilinogen Normal (Normal)
[2017-12-07 05:26] LABS: Absolute Neutrophil Count 3.7 X10^3/uL (2.0-7.7); Basophil# 0.03 X10^3/uL; Basophil% 0.5 % (0-1); Eosinophil# 0.19 X10^3/uL; Eosinophils% 3.1 % (0-5); Hematocrit 38.2 % (40-54); Hemoglobin 12.6 g/dl (13.0-16.5); Lymphocyte % 27.7 % (19-41); Mean Corpuscular Hgb 29.8 pg (27.0-32.0); Mean Corpuscular Volume 90.3 fL (80-94); Monocyte# 0.47 X10^3/uL; Monocyte% 7.7 % (0-10); Neutrophil # 3.74 X10^3/uL (2.7-7.7); POSITIVE COUNT NO; POSITIVE DIFFERENTIAL NO; POSITIVE MORPHOLOGY NO; Platelet Count 182 K/mm3 (150-450); RBC Distribution Width CV 14.8 % (11.6-14.6); RBC Distribution Width SD 48.4 fl (35.1-43.9); Red Blood Count 4.23 M/mm3 (4.6-6.2); White Blood Count 6.1 K/mm3 (4.4-11.0)
[2017-12-07 05:39] LABS: International Normalized Ratio 1.2
[2017-12-07 05:40] LABS: Partial Thromboplast Time 34.8 Seconds (24.1-36.2)
[2017-12-07 05:54] LABS: Anion Gap 9 (5-15); BUN 23 mg/dL (7-18); BUN/Creat Ratio 19.3 RATIO (10-20); Calcium,Total 9.4 mg/dL (8.5-10.1); Chloride 107 mmol/L (98-107); Creatinine, Serum 1.19 mg/dL (0.70-1.30); EST Glomerular Filtration Rate 62 mL/min (>60); Est Glom Filt Rate - Afr Amer 75 mL/min (>60); Glucose 92 mg/dL (74-106); Potassium 3.6 mmol/L (3.5-5.1); Sodium Level 144 mmol/L (136-145)
[2017-12-07] MEDS: Aspirin 81 MG TAB.CHEW PO (06:28)
[2017-12-07] MEDS: Clopidogrel Bisulfate 75 MG Tablet PO (06:28)
[2017-12-07] MEDS: Metoprolol(XL)Succ 25 MG Tablet PO (06:28)
--- NOTE | 2017-12-07 08:08 | NURSING ---
report called to labor training manager
[2017-12-07] MEDS: Multivitamins,Therapeutic Tablet 1 TABLET PO (10:38)
[2017-12-07] MEDS: Folic Acid 1 MG Tablet PO (10:38)
[2017-12-07] MEDS: Calcium Carb/Vitamin D 1 TABLET Tablet PO (10:38)
[2017-12-07] MEDS: Pantoprazole Sodium 20 MG Tablet PO (10:39)
[2017-12-07] MEDS: Finasteride 5 MG Tablet PO (10:39)
[2017-12-07] MEDS: Lisinopril 2.5 MG Tablet PO (10:40)
[2017-12-07] MEDS: Furosemide 40 MG Tablet PO (10:40)
--- NOTE | 2017-12-07 11:27 | PCM.PROGNOTE ---
<Dung Morel - Last Filed: 12/07/17 11:27> Patient Problems: Active and Suspected Problems (Last Reviewed 12/05/17 @ 15:18 by Johnson Roque DO) CHF (congestive heart failure) (Acute) Subjective: Pt underwent heart cath this AM, no stents were placed, cardiology recommends medical management. Today he has no SOB, CP, palp, dizziness, LH, Nausea or Vomiting. - Physical Exam General: Alert, Oriented x3, Cooperative HEENT: Atraumatic, PERRLA, EOMI, Normocephalic Neck: Supple, No JVD, Negative Carotid Bruits Lungs: Clear to auscultation, Normal air movement Cardiovascular: No murmurs, Irregular Rate Abdomen: Bowel Sounds Present, Soft, Non Tender Extremities: No edema, Capillary Refill Less than 3 Seconds Skin: No rashes, No breakdown Musculoskeletal: No Tenderness to Palpation of Joints or Extremities Neurological: Cranial nerves II-XII grossly intact Psych/Mental Status: Normal Affect, Appropriate, Alert and oriented to time, place, person, mood and affect Vital Signs Temp Pulse Resp BP Pulse Ox 97.4 F L 83 14 118/72 95 12/07/17 06:27 12/07/17 10:30 12/07/17 10:30 12/07/17 10:30 12/07/17 10:30 Oxygen Delivery Method Room Air Weight: 155 lb 6.814 oz Body Mass Index (BMI) 25.0 Intake and Output for Last 24 Hours 12/05/17 12/06/17 12/07/17 23:59 23:59 23:59 Intake Total 250 / 250 900 / 900 Output Total 1445 / 1445 Balance 250 / 250 -545 / -545 Laboratory Tests Past 24 Hrs 12/07/17 12/07/17 12/07/17 03:33 05:05 05:05 WBC 6.1 RBC 4.23 L Hgb 12.6 L Hct 38.2 L MCV 90.3 MCH 29.8 MCHC 33.0 RDW 14.8 H RDW Differential 48.4 H Plt Count 182 MPV 10.0 Immature Gran % (Auto) 0.000 Neut % (Auto) 61.0 Lymph % (Auto) 27.7 [place] % (Auto) 7.7 Eos % (Auto) 3.1 Baso % (Auto) 0.5 Absolute Neuts (auto) 3.7 Absolute Lymphs (auto) 1.70 Total Counted Not Reportable PT INR APTT Sodium 144 Potassium 3.6 Chloride 107 Carbon Dioxide 28.0 Anion Gap 9 BUN 23 H Creatinine 1.19 Estim Creat Clear Calc 47.10 Est GFR (MDRD) Af Amer 75 Est GFR (MDRD) Non-Af 62 BUN/Creatinine Ratio 19.3 Glucose 92 Calcium 9.4 Urine Color Yellow Urine Clarity Clear Urine pH 7.0 Ur Specific [place] 1.010 Urine Protein 15 H Urine Glucose (UA) Normal Urine Ketones 5 H Urine Occult Blood 10 H Urine Nitrite Negative Urine Bilirubin Negative Urine Urobilinogen Normal Ur Leukocyte Esterase Negative Urine RBC 0 SEEN Urine WBC 0 SEEN Ur Squamous Epith Cells 0 SEEN Urine Bacteria 0 SEEN Urine Mucus 0 SEEN 12/07/17 05:05 WBC RBC Hgb Hct MCV MCH MCHC RDW RDW Differential Plt Count MPV Immature Gran % (Auto) Neut % (Auto) Lymph % (Auto) [place] % (Auto) Eos % (Auto) Baso % (Auto) Absolute Neuts (auto) Absolute Lymphs (auto) Total Counted PT 15.0 H INR 1.2 APTT 34.8 Sodium Potassium Chloride Carbon Dioxide Anion Gap BUN Creatinine Estim Creat Clear Calc Est GFR (MDRD) Af Amer Est GFR (MDRD) Non-Af BUN/Creatinine Ratio Glucose Calcium Urine Color Urine Clarity Urine pH Ur Specific [place] Urine Protein Urine Glucose (UA) Urine Ketones Urine Occult Blood Urine Nitrite Urine Bilirubin Urine Urobilinogen Ur Leukocyte Esterase Urine RBC Urine WBC Ur Squamous Epith Cells Urine Bacteria Urine Mucus Medical Necessity - Tobacco Use Smoking Status: Former smoker Assessment/Plan All Active Problems (Last Reviewed 12/05/17 @ 15:18 by Johnson Roque DO) CHF (congestive heart failure) (Acute) Hyperthyroidism (Acute) Partial bowel obstruction (Acute) 1. Acute diastolic CHF exacerbation - improved. Lasix decreased now to 40 qd PO. Continue toprol, lisinopril. EF 50% per cath, grade 1-2 MVI. Maintain on tele, had a few beats of Vtach. 2. CAD - s/p cath this AM. CP resolved. Medical management per Dr. Jeffers. Asa, statin, bb, ernestina. [place] multivessel CAD per report. 3. CKD II - stable 4. CAD - prior CABG, stents 5. Chronic Afib - not on OAC per cardiology office note this is 2/2 a hx of falls- continue beta seth. 6. HLD - statin 7. HTN - stable 8. hyperthyroidism - on methimazole. TSH normal. DVT ppx: heparin DC planning: ptot, hx of falls. Likely home tomorrow. This patient was seen by Dung Morel PA-C under the supervision of Dr. Roque. <Johnson Roque - Last Filed: 12/07/17 13:44> - Physical Exam General: Alert, Cooperative HEENT: Atraumatic, Normocephalic Lungs: Clear to auscultation, Normal air movement, No rhonchi, No wheeze Cardiovascular: Normal S1, Normal S2, No murmurs, Irregular Rate Abdomen: Bowel Sounds Present, Soft, Non Tender, Non-Distended Extremities: No edema, No Calf Tenderness Skin: No rashes, No breakdown Vital Signs Temp Pulse Resp BP Pulse Ox 36.7 C 103 H 16 120/59 L 95 12/07/17 12:31 12/07/17 12:31 12/07/17 12:31 12/07/17 12:31 12/07/17 12:31 Oxygen Delivery Method Room Air Weight: 70.5 kg Body Mass Index (BMI) 25.0 Intake and Output for Last 24 Hours 12/05/17 12/06/17 12/07/17 23:59 23:59 23:59 Intake Total 250 / 250 900 / 900 120 / 120 Output Total 1445 / 1445 450 / 450 Balance 250 / 250 -545 / -545 -330 / -330 Laboratory Tests Past 24 Hrs 12/07/17 12/07/17 12/07/17 03:33 05:05 05:05 WBC 6.1 RBC 4.23 L Hgb 12.6 L Hct 38.2 L MCV 90.3 MCH 29.8 MCHC 33.0 RDW 14.8 H RDW Differential 48.4 H Plt Count 182 MPV 10.0 Immature Gran % (Auto) 0.000 Neut % (Auto) 61.0 Lymph % (Auto) 27.7 [place] % (Auto) 7.7 Eos % (Auto) 3.1 Baso % (Auto) 0.5 Absolute Neuts (auto) 3.7 Absolute Lymphs (auto) 1.70 Total Counted Not Reportable PT INR APTT Sodium 144 Potassium 3.6 Chloride 107 Carbon Dioxide 28.0 Anion Gap 9 BUN 23 H Creatinine 1.19 Estim Creat Clear Calc 47.10 Est GFR (MDRD) Af Amer 75 Est GFR (MDRD) Non-Af 62 BUN/Creatinine Ratio 19.3 Glucose 92 Calcium 9.4 Urine Color Yellow Urine Clarity Clear Urine pH 7.0 Ur Specific [place] 1.010 Urine Protein 15 H Urine Glucose (UA) Normal Urine Ketones 5 H Urine Occult Blood 10 H Urine Nitrite Negative Urine Bilirubin Negative Urine Urobilinogen Normal Ur Leukocyte Esterase Negative Urine RBC 0 SEEN Urine WBC 0 SEEN Ur Squamous Epith Cells 0 SEEN Urine Bacteria 0 SEEN Urine Mucus 0 SEEN 12/07/17 05:05 WBC RBC Hgb Hct MCV MCH MCHC RDW RDW Differential Plt Count MPV Immature Gran % (Auto) Neut % (Auto) Lymph % (Auto) [place] % (Auto) Eos % (Auto) Baso % (Auto) Absolute Neuts (auto) Absolute Lymphs (auto) Total Counted PT 15.0 H INR 1.2 APTT 34.8 Sodium Potassium Chloride Carbon Dioxide Anion Gap BUN Creatinine Estim Creat Clear Calc Est GFR (MDRD) Af Amer Est GFR (MDRD) Non-Af BUN/Creatinine Ratio Glucose Calcium Urine Color Urine Clarity Urine pH Ur Specific [place] Urine Protein Urine Glucose (UA) Urine Ketones Urine Occult Blood Urine Nitrite Urine Bilirubin Urine Urobilinogen Ur Leukocyte Esterase Urine RBC Urine WBC Ur Squamous Epith Cells Urine Bacteria Urine Mucus Assessment/Plan Patient seen and examined independently. Data reviewed. I agree with the above note by the physician practice assistant. 1. Acute heart failure with preserved ejection fraction EF of 55% from 2015 Continue with IV Lasix Recheck echocardiogram Fluid restriction 1500 cc per day Cardiology consultation 2. Chest pain Atypical Cycle troponins LHC negative for any new lesions. ASA, HIS, BB 3. Hypothyroidism Continue with methimazole stable TSH WNL 4. A. fib Continue beta-seth Not a candidate for oral anticoagulants given fall history 5. Debility: PT/OT eval pending. Code Visit Inpatient E&M: 98217 Subs Hosp L2
--- NOTE | 2017-12-07 11:32 | PN_ITS ---
<Dung Morel - Last Filed: 12/07/17 11:27> Patient Problems: Active and Suspected Problems (Last Reviewed 12/05/17 @ 15:18 by Johnson Roque DO) CHF (congestive heart failure) (Acute) Subjective: Pt underwent heart cath this AM, no stents were placed, cardiology recommends medical management. Today he has no SOB, CP, palp, dizziness, LH, Nausea or Vomiting. - Physical Exam General: Alert, Oriented x3, Cooperative HEENT: Atraumatic, PERRLA, EOMI, Normocephalic Neck: Supple, No JVD, Negative Carotid Bruits Lungs: Clear to auscultation, Normal air movement Cardiovascular: No murmurs, Irregular Rate Abdomen: Bowel Sounds Present, Soft, Non Tender Extremities: No edema, Capillary Refill Less than 3 Seconds Skin: No rashes, No breakdown Musculoskeletal: No Tenderness to Palpation of Joints or Extremities Neurological: Cranial nerves II-XII grossly intact Psych/Mental Status: Normal Affect, Appropriate, Alert and oriented to time, place, person, mood and affect Vital Signs Temp Pulse Resp BP Pulse Ox 97.4 F L 83 14 118/72 95 12/07/17 06:27 12/07/17 10:30 12/07/17 10:30 12/07/17 10:30 12/07/17 10:30 Oxygen Delivery Method Room Air Weight: 155 lb 6.814 oz Body Mass Index (BMI) 25.0 Intake and Output for Last 24 Hours 12/05/17 12/06/17 12/07/17 23:59 23:59 23:59 Intake Total 250 / 250 900 / 900 Output Total 1445 / 1445 Balance 250 / 250 -545 / -545 Laboratory Tests Past 24 Hrs 12/07/17 12/07/17 12/07/17 03:33 05:05 05:05 WBC 6.1 RBC 4.23 L Hgb 12.6 L Hct 38.2 L MCV 90.3 MCH 29.8 MCHC 33.0 RDW 14.8 H RDW Differential 48.4 H Plt Count 182 MPV 10.0 Immature Gran % (Auto) 0.000 Neut % (Auto) 61.0 Lymph % (Auto) 27.7 Mcleod % (Auto) 7.7 Eos % (Auto) 3.1 Baso % (Auto) 0.5 Absolute Neuts (auto) 3.7 Absolute Lymphs (auto) 1.70 Total Counted Not Reportable PT INR APTT Sodium 144 Potassium 3.6 Chloride 107 Carbon Dioxide 28.0 Anion Gap 9 BUN 23 H Creatinine 1.19 Estim Creat Clear Calc 47.10 Est GFR (MDRD) Af Amer 75 Est GFR (MDRD) Non-Af 62 BUN/Creatinine Ratio 19.3 Glucose 92 Calcium 9.4 Urine Color Yellow Urine Clarity Clear Urine pH 7.0 Ur Specific [place] 1.010 Urine Protein 15 H Urine Glucose (UA) Normal Urine Ketones 5 H Urine Occult Blood 10 H Urine Nitrite Negative Urine Bilirubin Negative Urine Urobilinogen Normal Ur Leukocyte Esterase Negative Urine RBC 0 SEEN Urine WBC 0 SEEN Ur Squamous Epith Cells 0 SEEN Urine Bacteria 0 SEEN Urine Mucus 0 SEEN 12/07/17 05:05 WBC RBC Hgb Hct MCV MCH MCHC RDW RDW Differential Plt Count MPV Immature Gran % (Auto) Neut % (Auto) Lymph % (Auto) Mcleod % (Auto) Eos % (Auto) Baso % (Auto) Absolute Neuts (auto) Absolute Lymphs (auto) Total Counted PT 15.0 H INR 1.2 APTT 34.8 Sodium Potassium Chloride Carbon Dioxide Anion Gap BUN Creatinine Estim Creat Clear Calc Est GFR (MDRD) Af Amer Est GFR (MDRD) Non-Af BUN/Creatinine Ratio Glucose Calcium Urine Color Urine Clarity Urine pH Ur Specific [place] Urine Protein Urine Glucose (UA) Urine Ketones Urine Occult Blood Urine Nitrite Urine Bilirubin Urine Urobilinogen Ur Leukocyte Esterase Urine RBC Urine WBC Ur Squamous Epith Cells Urine Bacteria Urine Mucus Medical Necessity - Tobacco Use Smoking Status: Former smoker Assessment/Plan All Active Problems (Last Reviewed 12/05/17 @ 15:18 by Johnson Roque DO) CHF (congestive heart failure) (Acute) Hyperthyroidism (Acute) Partial bowel obstruction (Acute) 1. Acute diastolic CHF exacerbation - improved. Lasix decreased now to 40 qd PO. Continue toprol, lisinopril. EF 50% per cath, grade 1-2 MVI. Maintain on tele, had a few beats of Vtach. 2. CAD - s/p cath this AM. CP resolved. Medical management per Dr. Jeffers. Asa, statin, bb, ernestina. [place] multivessel CAD per report. 3. CKD II - stable 4. CAD - prior CABG, stents 5. Chronic Afib - not on OAC per cardiology office note this is 2/2 a hx of falls- continue beta seth. 6. HLD - statin 7. HTN - stable 8. hyperthyroidism - on methimazole. TSH normal. DVT ppx: heparin DC planning: ptot, hx of falls. Likely home tomorrow. This patient was seen by Dung Morel PA-C under the supervision of Dr. Roque. <Johnson Roque - Last Filed: 12/07/17 13:44> - Physical Exam General: Alert, Cooperative HEENT: Atraumatic, Normocephalic Lungs: Clear to auscultation, Normal air movement, No rhonchi, No wheeze Cardiovascular: Normal S1, Normal S2, No murmurs, Irregular Rate Abdomen: Bowel Sounds Present, Soft, Non Tender, Non-Distended Extremities: No edema, No Calf Tenderness Skin: No rashes, No breakdown Vital Signs Temp Pulse Resp BP Pulse Ox 36.7 C 103 H 16 120/59 L 95 12/07/17 12:31 12/07/17 12:31 12/07/17 12:31 12/07/17 12:31 12/07/17 12:31 Oxygen Delivery Method Room Air Weight: 70.5 kg Body Mass Index (BMI) 25.0 Intake and Output for Last 24 Hours 12/05/17 12/06/17 12/07/17 23:59 23:59 23:59 Intake Total 250 / 250 900 / 900 120 / 120 Output Total 1445 / 1445 450 / 450 Balance 250 / 250 -545 / -545 -330 / -330 Laboratory Tests Past 24 Hrs 12/07/17 12/07/17 12/07/17 03:33 05:05 05:05 WBC 6.1 RBC 4.23 L Hgb 12.6 L Hct 38.2 L MCV 90.3 MCH 29.8 MCHC 33.0 RDW 14.8 H RDW Differential 48.4 H Plt Count 182 MPV 10.0 Immature Gran % (Auto) 0.000 Neut % (Auto) 61.0 Lymph % (Auto) 27.7 Mcleod % (Auto) 7.7 Eos % (Auto) 3.1 Baso % (Auto) 0.5 Absolute Neuts (auto) 3.7 Absolute Lymphs (auto) 1.70 Total Counted Not Reportable PT INR APTT Sodium 144 Potassium 3.6 Chloride 107 Carbon Dioxide 28.0 Anion Gap 9 BUN 23 H Creatinine 1.19 Estim Creat Clear Calc 47.10 Est GFR (MDRD) Af Amer 75 Est GFR (MDRD) Non-Af 62 BUN/Creatinine Ratio 19.3 Glucose 92 Calcium 9.4 Urine Color Yellow Urine Clarity Clear Urine pH 7.0 Ur Specific [place] 1.010 Urine Protein 15 H Urine Glucose (UA) Normal Urine Ketones 5 H Urine Occult Blood 10 H Urine Nitrite Negative Urine Bilirubin Negative Urine Urobilinogen Normal Ur Leukocyte Esterase Negative Urine RBC 0 SEEN Urine WBC 0 SEEN Ur Squamous Epith Cells 0 SEEN Urine Bacteria 0 SEEN Urine Mucus 0 SEEN 12/07/17 05:05 WBC RBC Hgb Hct MCV MCH MCHC RDW RDW Differential Plt Count MPV Immature Gran % (Auto) Neut % (Auto) Lymph % (Auto) Mcleod % (Auto) Eos % (Auto) Baso % (Auto) Absolute Neuts (auto) Absolute Lymphs (auto) Total Counted PT 15.0 H INR 1.2 APTT 34.8 Sodium Potassium Chloride Carbon Dioxide Anion Gap BUN Creatinine Estim Creat Clear Calc Est GFR (MDRD) Af Amer Est GFR (MDRD) Non-Af BUN/Creatinine Ratio Glucose Calcium Urine Color Urine Clarity Urine pH Ur Specific [place] Urine Protein Urine Glucose (UA) Urine Ketones Urine Occult Blood Urine Nitrite Urine Bilirubin Urine Urobilinogen Ur Leukocyte Esterase Urine RBC Urine WBC Ur Squamous Epith Cells Urine Bacteria Urine Mucus Assessment/Plan Patient seen and examined independently. Data reviewed. I agree with the above note by the physician nurse's assistant. 1. Acute heart failure with preserved ejection fraction * EF of 55% from 2015 * Continue with IV Lasix * Recheck echocardiogram * Fluid restriction 1500 cc per day * Cardiology consultation 2. Chest pain * Atypical * Cycle troponins * LHC negative for any new lesions. * ASA, HIS, BB 3. Hypothyroidism * Continue with methimazole * stable * TSH WNL 4. A. fib * Continue beta-seth * Not a candidate for oral anticoagulants given fall history 5. Debility: PT/OT eval pending. Code Visit Inpatient E&M: 92755 Subs Hosp L2
--- NOTE | 2017-12-07 14:00 | CASEMGMT ---
DC Plan: Home on discharge -Pt states he was independent prior to admission, no DME use. Drives to breakfast every am and has dinner 4x week with his brother/sister in law who live nearby. Pt states he plans to return home. No needs identified. -Discussed ambulation with PT/OT. Stated pt did well, recommendation will be home. Ashley ANDRESN RN ACM
[2017-12-07] MEDS: Tamsulosin HCl 0.4 MG Capsule PO (16:38)
--- NOTE | 2017-12-07 17:28 | PCM.PN.CARD ---
Subjectve: The patient has undergone further evaluation with diagnostic cardiac catheterization. He has had no postprocedure acute complaints. Objective: Vital Signs Temp Pulse Resp BP Pulse Ox 98.3 F 79 14 91/58 L 96 12/07/17 16:37 12/07/17 16:37 12/07/17 16:37 12/07/17 16:37 12/07/17 16:37 Oxygen Delivery Method Room Air Weight: 155 lb 6.814 oz Body Mass Index (BMI) 25.0 Intake and Output for Last 24 Hours 12/05/17 12/06/17 12/07/17 23:59 23:59 23:59 Intake Total 250 / 250 900 / 900 120 / 120 Output Total 1445 / 1445 450 / 450 Balance 250 / 250 -545 / -545 -330 / -330 General: Awake, Alert, Oriented x 3, No Acute Distress Neck: No JVD Lungs: Clear to auscultation Cardiovascular: Irregular Rhythm, Normal S1, Normal S2 Vascular: Normal Femoral Pulses Abdomen: Bowel Sounds Present, Soft, Non Tender Extremities: No edema 12/07/17 03:33: Urine Color Yellow, Urine Clarity Clear, Urine pH 7.0, Ur Specific [place] 1.010, Urine Protein 15 H, Urine Glucose (UA) Normal, Urine Ketones 5 H, Urine Occult Blood 10 H, Urine Nitrite Negative, Urine Bilirubin Negative, Urine Urobilinogen Normal, Ur Leukocyte Esterase Negative, Urine RBC 0 SEEN, Urine WBC 0 SEEN 12/07/17 05:05: Sodium 144, Potassium 3.6, Chloride 107, Carbon Dioxide 28.0, Anion Gap 9, BUN 23 H, Creatinine 1.19, Est GFR (MDRD) Af Amer 75, Est GFR (MDRD) Non-Af 62, BUN/Creatinine Ratio 19.3, Glucose 92, Calcium 9.4 12/07/17 05:05: WBC 6.1, RBC 4.23 L, Hgb 12.6 L, Hct 38.2 L, MCV 90.3, MCH 29.8, MCHC 33.0, RDW 14.8 H, RDW Differential 48.4 H, Plt Count 182, MPV 10.0, Immature Gran % (Auto) 0.000, Neut % (Auto) 61.0, Lymph % (Auto) 27.7, [place] % (Auto) 7.7, Eos % (Auto) 3.1, Baso % (Auto) 0.5, Absolute Neuts (auto) 3.7, Total Counted Not Reportable 12/07/17 05:05: PT 15.0 H, INR 1.2, APTT 34.8 Rhythm: Atrial fibrillation Cardiac Cath: Please see official report Medical Necessity - Tobacco Use Smoking Status: Former smoker Assessment/Plan 1. Congestive heart failure The patient appears to have improvement status post medical management. He has undergone further evaluation with noninvasive and invasive studies. Based upon his invasive studies he did not require additional catheter based revascularization procedure. Thus he will continue conservative medical management. 2. CAD status post PCI status post CABG The patient does have an extensive history of underlying coronary artery disease/graft vessel disease. He has undergone further evaluation with diagnostic cardiac catheterization. His findings were similar to his previous findings from 2014. He did not require additional catheter based revascularization therapy. Thus she will continue medical management as tolerated. 3. Atrial fibrillation The patient has had atrial fibrillation. He has been on rate control therapy. He has not been on anticoagulant therapy-at least recently-based upon previous concerns of difficulty taking his medications as prescribed and difficulty with his balance and gait and falling episodes. He will continue antiplatelet therapy and rate control therapy. If his overall status has improved with respect to his ability to take medications as prescribed and his balance and gait then perhaps he can be reassessed for long-term oral systemic anticoagulant therapy. 4. Permanent pacemaker The patient has had underlying conduction system related issues. He does have a permanent pacemaker in place. It has been functioning appropriately. 5. Hyperlipidemia The patient will continue risk factor evaluation care. 6. Hypertension The patient will need continued antihypertensive therapy with adjustment as deemed appropriate. Comment: The above has been discussed and reviewed with the patient. This note was generated with [employer] software. It may contain incorrect words, spelling, and punctuation that were not noted in checking the note before signing.
[2017-12-07] MEDS: Atorvastatin Calcium 80 MG Tablet PO (20:51)
[2017-12-07] MEDS: 0.9% NaCl Peripheral Flush Adult/Peds IV (20:51)
[2017-12-07] MEDS: Metoprolol(XL)Succ 25 MG Tablet 12.5 MG PO (22:30)
[2017-12-08] VITALS (17 sets, daily range): BP systolic 83–112; BP diastolic 41–71; PULSE 51–110; RESP 14–18; TEMP 36.3–36.9; O2SAT 97–100
[2017-12-08 06:22] LABS: Hematocrit 38.5 % (40-54); Hemoglobin 12.8 g/dl (13.0-16.5)
[2017-12-08 06:40] LABS: Anion Gap 7 (5-15); BUN 26 mg/dL (7-18); BUN/Creat Ratio 24.3 RATIO (10-20); Calcium,Total 9.3 mg/dL (8.5-10.1); Chloride 109 mmol/L (98-107); Creatinine, Serum 1.07 mg/dL (0.70-1.30); EST Glomerular Filtration Rate 70 mL/min (>60); Est Glom Filt Rate - Afr Amer 85 mL/min (>60); Estimated Creatinine Clearance 52.38 ml/min; Glucose 84 mg/dL (74-106); Potassium 3.9 mmol/L (3.5-5.1); Sodium Level 142 mmol/L (136-145)
[2017-12-08] MEDS: Folic Acid 1 MG Tablet PO (09:47)
[2017-12-08] MEDS: Furosemide 20 MG Tablet PO (09:48)
[2017-12-08] MEDS: Finasteride 5 MG Tablet PO (09:48)
[2017-12-08] MEDS: Multivitamins,Therapeutic Tablet 1 TABLET PO (09:48)
[2017-12-08] MEDS: Pantoprazole Sodium 20 MG Tablet PO (09:48)
[2017-12-08] MEDS: Aspirin 81 MG TAB.CHEW PO (09:49)
[2017-12-08] MEDS: Enoxaparin 40 MG/0.4 ML Syringe SC (09:49)
[2017-12-08] MEDS: Calcium Carb/Vitamin D 1 TABLET Tablet PO (09:49)
[2017-12-08] MEDS: Metoprolol(XL)Succ 25 MG Tablet PO ×2 (10:24→21:17)
--- NOTE | 2017-12-08 10:24 | PCM.PN.CARD ---
Subjectve: The patient is awake and alert. He denies any ongoing chest discomfort. He notes his breathing has improved. However he states he does get the sensation of being dizzy and/or off balance especially with standing quickly. He states at home he stands slowly. He denies any falling episodes at home at least for some months. Objective: Vital Signs Temp Pulse Resp BP Pulse Ox 97.6 F L 85 14 105/51 L 99 12/08/17 09:25 12/08/17 09:56 12/08/17 09:25 12/08/17 09:56 12/08/17 09:25 Oxygen Delivery Method Room Air Weight: 153 lb 14.122 oz Body Mass Index (BMI) 25.0 Intake and Output for Last 24 Hours 12/06/17 12/07/17 12/08/17 23:59 23:59 23:59 Intake Total 900 / 900 720 / 720 Output Total 1445 / 1445 925 / 925 175 / 175 Balance -545 / -545 -205 / -205 -175 / -175 General: Awake, Alert, Oriented x 3, Cooperative, No Acute Distress Neck: No JVD Lungs: Clear to auscultation Cardiovascular: Irregular Rhythm, Normal S1, Normal S2 Vascular: Normal Femoral Pulses Abdomen: Bowel Sounds Present, Soft, Non Tender Extremities: No edema Neurological: No Focal Motor or Sensory Deficit 12/08/17 06:05: Hgb 12.8 L, Hct 38.5 L 12/08/17 06:05: Sodium 142, Potassium 3.9, Chloride 109 H, Carbon Dioxide 26.0, Anion Gap 7, BUN 26 H, Creatinine 1.07, Est GFR (MDRD) Af Amer 85, Est GFR (MDRD) Non-Af 70, BUN/Creatinine Ratio 24.3 H, Glucose 84, Calcium 9.3 Rhythm: Atrial fibrillation Medical Necessity - Tobacco Use Smoking Status: Former smoker Assessment/Plan 1. Congestive heart failure The patient appears to have improvement status post medical management. He has undergone further evaluation with noninvasive and invasive studies. Based upon his invasive studies he did not require additional catheter based revascularization procedure. Thus he will continue conservative medical management. 2. CAD status post PCI status post CABG The patient does have an extensive history of underlying coronary artery disease/graft vessel disease. He has undergone further evaluation with diagnostic cardiac catheterization. His findings were similar to his previous findings from 2015. He did not require additional catheter based revascularization therapy. Thus she will continue medical management as tolerated. 3. Atrial fibrillation The patient has had atrial fibrillation. He has been on rate control therapy. He has not been on anticoagulant therapy-at least recently-based upon previous concerns of difficulty taking his medications as prescribed and difficulty with his balance and gait and falling episodes. He will continue antiplatelet therapy and rate control therapy. He continues with episodes in the hospital when being up with respect of being somewhat dizzy and off-balance. The nursing staff has requested a gait belt to help assist him when he is up and about. He is being evaluated by OT PT. This information would be important with respect to whether or not his risk benefit ratio is in favor of attempting anticoagulation. If anticoagulation is attempted hopefully can be performed with an agent such as apixaban/Eliquis or rivaroxaban/Xarelto. These may be simpler agents for the patient to take without having to adjust dosages and have frequent laboratory follow-ups. 4. Permanent pacemaker The patient has had underlying conduction system related issues. He does have a permanent pacemaker in place. It has been functioning appropriately. 5. Hyperlipidemia The patient will continue risk factor evaluation care. 6. Hypertension The patient will need continued antihypertensive therapy with adjustment as deemed appropriate. Comment: The above has been discussed and reviewed with the patient and the [facility] staff. This note was generated with Tripl dictation software. It may contain incorrect words, spelling, and punctuation that were not noted in checking the note before signing.
[2017-12-08] MEDS: Midodrine HCl 5 MG Tablet PO ×2 (13:19→21:17)
--- NOTE | 2017-12-08 13:49 | PCM.PROGNOTE ---
<Dung Morel - Last Filed: 12/08/17 13:49> Patient Problems: Active and Suspected Problems (Last Reviewed 12/05/17 @ 15:18 by Johnson Roque DO) CHF (congestive heart failure) (Acute) Subjective: Pt resting comfortably in bed NAD. He has no CP, no tightness, pressure, no SOB. Edema remains improved. He does continue to have dizziness and lightheadedness when standing and has + orthos. No palp despite PVCs and Vtach showing on the monitor. - Physical Exam General: Alert, Oriented x3, Cooperative HEENT: Atraumatic, PERRLA, EOMI, Normocephalic Neck: Supple, No JVD, Negative Carotid Bruits Lungs: Clear to auscultation, Normal air movement Cardiovascular: No murmurs, Irregular Rate Abdomen: Bowel Sounds Present, Soft, Non Tender Extremities: No edema, Capillary Refill Less than 3 Seconds Skin: No rashes, No breakdown Musculoskeletal: No Tenderness to Palpation of Joints or Extremities Neurological: Cranial nerves II-XII grossly intact Psych/Mental Status: Normal Affect, Appropriate, Alert and oriented to time, place, person, mood and affect Vital Signs Temp Pulse Resp BP Pulse Ox 98.4 F 88 16 83/44 L 97 12/08/17 13:14 12/08/17 13:14 12/08/17 13:14 12/08/17 13:14 12/08/17 13:14 Oxygen Delivery Method Room Air Weight: 153 lb 14.122 oz Body Mass Index (BMI) 25.0 Orthostatic Vital Signs Start: 12/08/17 10:18 Freq: q24h Status: Active Protocol: Activity Type Activity Date Activity User E-Sign Co-Sign Detail Recorded Client Recorded Date Recorded By Document 12/08/17 10:18 TNG [id number] 12/08/17 10:24 TNG 12/08/17 10:18 Orthostatic Vitals Standing -Blood Pressure (90/60-120/80) 98/45 L -Extremity Use Left Arm -Pulse Rate (60-100) 51 L Sitting -Blood Pressure (90/60-120/80) 92/60 -Extremity Use Left Arm -Pulse Rate (60-100) 66 Lying -Blood Pressure (90/60-120/80) 108/63 -Extremity Use Left Arm -Pulse Rate (60-100) 88 Intake and Output for Last 24 Hours 12/06/17 12/07/17 12/08/17 23:59 23:59 23:59 Intake Total 900 / 900 720 / 720 220 / 220 Output Total 1445 / 1445 925 / 925 175 / 175 Balance -545 / -545 -205 / -205 45 / 45 Laboratory Tests Past 24 Hrs 12/08/17 12/08/17 06:05 06:05 Hgb 12.8 L Hct 38.5 L Sodium 142 Potassium 3.9 Chloride 109 H Carbon Dioxide 26.0 Anion Gap 7 BUN 26 H Creatinine 1.07 Estim Creat Clear Calc 52.38 Est GFR (MDRD) Af Amer 85 Est GFR (MDRD) Non-Af 70 BUN/Creatinine Ratio 24.3 H Glucose 84 Calcium 9.3 Medical Necessity - Tobacco Use Smoking Status: Former smoker Assessment/Plan All Active Problems (Last Reviewed 12/05/17 @ 15:18 by Johnson Roque DO) CHF (congestive heart failure) (Acute) Hyperthyroidism (Acute) Partial bowel obstruction (Acute) 1. Acute diastolic CHF exacerbation - Resolved. Lasix decreased now to 20 qd PO. Continue toprol, no ernestina 2/2 hypotension. EF 50% per cath, grade 1-2 MVI. Maintain on tele, had a few beats of Vtach. 2. CAD - s/p cath. CP resolved. Medical management per Dr. Jeffers. Asa, statin, bb. [place] multivessel CAD per report. 3. CKD II - stable 4. CAD - prior CABG, stents 5. Chronic Afib - not on OAC per cardiology office note this is 2/2 a hx of falls - continue beta seth. may need further rate control, cardiology is investigating. 6. HLD - statin 7. HTN - ernestina dc'd 2/2 poor BP, now ion midodrine will monitor for supine HTN 8. hyperthyroidism - on methimazole. TSH normal. concern for amio causing thyroid issues in the past although this has not been confirmed. 9. Orthostatic hypotension - trial midodrine while here. DVT ppx: heparin DC planning: ptot, hx of falls. Likely home tomorrow. This patient was seen by Dung Morel PA-C under the supervision of Dr. Leary. <[place] - Last Filed: 12/08/17 15:25> - Physical Exam Vital Signs Temp Pulse Resp BP Pulse Ox 98.2 F 100 16 110/58 L 98 12/08/17 14:46 12/08/17 14:46 12/08/17 14:46 12/08/17 14:55 12/08/17 14:46 Oxygen Delivery Method Room Air Weight: 69.8 kg Body Mass Index (BMI) 25.0 Orthostatic Vital Signs Start: 12/08/17 10:18 Freq: q24h Status: Active Protocol: Activity Type Activity Date Activity User E-Sign Co-Sign Detail Recorded Client Recorded Date Recorded By Document 12/08/17 10:18 TNG [id number] 12/08/17 10:24 TNG 12/08/17 10:18 Orthostatic Vitals Standing -Blood Pressure (90/60-120/80) 98/45 L -Extremity Use Left Arm -Pulse Rate (60-100) 51 L Sitting -Blood Pressure (90/60-120/80) 92/60 -Extremity Use Left Arm -Pulse Rate (60-100) 66 Lying -Blood Pressure (90/60-120/80) 108/63 -Extremity Use Left Arm -Pulse Rate (60-100) 88 Intake and Output for Last 24 Hours 12/06/17 12/07/17 12/08/17 23:59 23:59 23:59 Intake Total 900 / 900 720 / 720 220 / 220 Output Total 1445 / 1445 925 / 925 175 / 175 Balance -545 / -545 -205 / -205 45 / 45 Laboratory Tests Past 24 Hrs 12/08/17 12/08/17 06:05 06:05 Hgb 12.8 L Hct 38.5 L Sodium 142 Potassium 3.9 Chloride 109 H Carbon Dioxide 26.0 Anion Gap 7 BUN 26 H Creatinine 1.07 Estim Creat Clear Calc 52.38 Est GFR (MDRD) Af Amer 85 Est GFR (MDRD) Non-Af 70 BUN/Creatinine Ratio 24.3 H Glucose 84 Calcium 9.3 Assessment/Plan Patient was seen and examined. I agree with the interval history, physical exam and assessment and plan as documented by ALFREDO Daniel. Patient of feeling dizzy. Blood pressures has been low. Medication changes made in consultation with cardiology. Physical exam is significant for no bipedal edema. Not on oxygen. Lung exam is clinically clear to auscultation. Discussed with cardiology, will start patient on Midodrine, will be monitoring BP. Code Visit Inpatient E&M: 25685 Subs Hosp L2
--- NOTE | 2017-12-08 14:56 | NURSING ---
When pt's BP taken by machine w/small adult cuff, following results obtained: LT arm 132/61 RT arm 105/58 When pt's BP taken by machine w/regular adult cuff, following results obtained: LT arm 71/62 RT arm 99/65 when pt's BP taken manually by this RN w/small adult cuff, following results obtained: LT arm 112/60 RT arm 110/58 Will continue to take manual blood pressures d/t inconsistency w/machine.
[2017-12-08] MEDS: Tamsulosin HCl 0.4 MG Capsule PO (18:30)
[2017-12-08] MEDS: Atorvastatin Calcium 80 MG Tablet PO (21:17)
[2017-12-09] VITALS (12 sets, daily range): BP systolic 69–140; BP diastolic 30–74; PULSE 62–97; RESP 16–19; TEMP 36.2–36.8; O2SAT 95–99
[2017-12-09 06:54] LABS: Anion Gap 7 (5-15); BUN 30 mg/dL (7-18); BUN/Creat Ratio 29.1 RATIO (10-20); Calcium,Total 9.1 mg/dL (8.5-10.1); Chloride 110 mmol/L (98-107); Creatinine, Serum 1.03 mg/dL (0.70-1.30); EST Glomerular Filtration Rate 74 mL/min (>60); Est Glom Filt Rate - Afr Amer 89 mL/min (>60); Estimated Creatinine Clearance 54.42 ml/min; Glucose 93 mg/dL (74-106); Sodium Level 143 mmol/L (136-145)
[2017-12-09] MEDS: Midodrine HCl 5 MG Tablet PO ×3 (08:47→21:15)
[2017-12-09] MEDS: Finasteride 5 MG Tablet PO (09:12)
[2017-12-09] MEDS: Pantoprazole Sodium 20 MG Tablet PO (09:13)
[2017-12-09] MEDS: Furosemide 20 MG Tablet PO (09:13)
[2017-12-09] MEDS: Methimazole 5 MG Tablet PO (09:13)
[2017-12-09] MEDS: Multivitamins,Therapeutic Tablet 1 TABLET PO (09:13)
[2017-12-09] MEDS: Calcium Carb/Vitamin D 1 TABLET Tablet PO (09:16)
[2017-12-09] MEDS: Aspirin 81 MG TAB.CHEW PO (09:19)
[2017-12-09] MEDS: Enoxaparin 40 MG/0.4 ML Syringe SC (09:20)
[2017-12-09] MEDS: Folic Acid 1 MG Tablet PO (09:20)
--- NOTE | 2017-12-09 09:26 | NURSING ---
Orthos obtained per night time nanny MARIA LUISA Perry. Charted in paper chart as well.
--- NOTE | 2017-12-09 10:35 | CASEMGMT ---
Addendum entered by Rob Dugan 12/09/17 11:55: Pt's brother in to see pt. Pt refused Home Health after speaking with brother. MARIA LUISA GENAO and [facility] nurse spoke with pt explaining Dr. Elam recommendations not to drive due to orthostatic hypotension. Pt agreed to Home Health after having physician concerns explained. Brother also aware of recommendation not to have pt drive or operate his 4wheeler until cleared by PCP. Ashley KUMAR Original Note: MARIA LUISA GENAO Note: per physician who met with pt, Home Health has been agreed upon. MARIA LUISA GENAO discussed with pt. [facility] contacted through Trice Harvey LPN. Order placed. No further concerns per pt on dc. Ashley KUMAR
[2017-12-09] MEDS: 0.9% NaCl Peripheral Flush Adult/Peds IV (13:27)
--- NOTE | 2017-12-09 13:48 | CASEMGMT ---
RN CM indicated patient would like to do advance directives. SW met with patient and explained documents per his request. Documents were then completed. Copies placed in chart, originals and extra copies given to patient. Saranya PYLE
--- NOTE | 2017-12-09 14:33 | PCM.PN.HOSP ---
Patient Problems: Active and Suspected Problems (Last Reviewed 12/05/17 @ 15:18 by Johnson Roque DO) CHF (congestive heart failure) (Acute) Subjective: Patient was seen and examined. Remains orthostatic vitals. Denies chest pain, dizziness, palpitations. Vitals/I&O's: Vital Signs Temp Pulse Resp BP Pulse Ox 98.3 F 75 16 140/74 H 99 12/09/17 13:24 12/09/17 13:24 12/09/17 13:24 12/09/17 13:24 12/09/17 13:24 Oxygen Delivery Method Room Air Weight: 71.1 kg Body Mass Index (BMI) 25.0 Orthostatic Vital Signs Start: 12/08/17 10:18 Freq: q24h Status: Active Protocol: Activity Type Activity Date Activity User E-Sign Co-Sign Detail Recorded Client Recorded Date Recorded By Document 12/09/17 06:45 LRM [id number] 12/09/17 09:27 LRM 12/09/17 06:45 Orthostatic Vitals Standing -Blood Pressure (90/60-120/80) 69/30 L -Extremity Use Right Arm -Pulse Rate (60-100) 92 Sitting -Blood Pressure (90/60-120/80) 87/46 L -Extremity Use Right Arm -Pulse Rate (60-100) 92 Lying -Blood Pressure (90/60-120/80) 95/44 L -Extremity Use Right Arm -Pulse Rate (60-100) 92 12/09/17 09:26 Nursing Note by Caroline Justice [facility] obtained per second shift supervisor MARIA LUISA Perry. Charted in paper chart as well. Initialized on 12/09/17 09:26 - END OF NOTE Intake and Output for Last 24 Hours 12/07/17 12/08/17 12/09/17 23:59 23:59 23:59 Intake Total 720 / 720 580 / 580 100 / 100 Output Total 925 / 925 575 / 575 Balance -205 / -205 5 / 5 100 / 100 General: Alert, Oriented x3, Cooperative, No apparent distress HEENT: Atraumatic, PERRLA, EOMI, Normocephalic Oral: Moist Mucosa Neck: Supple Lungs: Clear to auscultation, Normal air movement Cardiovascular: Regular rate, Regular Rhythm, Normal S1, Normal S2, No murmurs Abdomen: Bowel Sounds Present, Soft, Non Tender, Non-Distended, No Hepato-splenomegaly Extremities: No edema Skin: No rashes, No breakdown Musculoskeletal: No Tenderness to Palpation of Joints or Extremities Lymphatic: No Cervical, Supraclavicular, or Inguinal Adenopathy Neurological: Cranial nerves II-XII grossly intact, Neuro grossly intact Psych/Mental Status: Normal Affect, Appropriate Laboratory Results 12/09/17 06:05: Sodium 143, Potassium 4.0, Chloride 110 H, Carbon Dioxide 26.0, Anion Gap 7, BUN 30 H, Creatinine 1.03, Estim Creat Clear Calc 54.42, Est GFR (MDRD) Af Amer 89, Est GFR (MDRD) Non-Af 74, BUN/Creatinine Ratio 29.1 H, Glucose 93, Calcium 9.1 12/09/17 08:05: Troponin I 0.016 Current Medications Acetaminophen (Tylenol) 650 mg PO Q6H PRN PRN PRN Reason: Mild Pain (1-3)/Temp > 100.7 F Aspirin (Aspirin, Baby) 81 mg PO DAILY@0800 [facility] Last Admin: 12/09/17 09:19 Dose: 81 mg Atorvastatin Calcium (Lipitor) 80 mg PO QHS [facility] Last Admin: 12/08/17 21:17 Dose: 80 mg Calcium/Vitamin D (Os-Kwadwo 500mg + D) [facility] Last Admin: 12/09/17 09:16 Dose: 1 tablet Enoxaparin Sodium (Lovenox) 40 mg SC DAILY@1000 [facility] Last Admin: 12/09/17 09:20 Dose: 40 mg Ergocalciferol (Vitamin D) 50,000 unit PO QMONTH [facility] Last Admin: 12/05/17 17:17 Dose: 50,000 unit Finasteride (Proscar) 5 mg PO DAILY [facility] Last Admin: 12/09/17 09:12 Dose: 5 mg Folic Acid (Folic Acid) 1 mg PO DAILY@0800 [facility] Last Admin: 12/09/17 09:20 Dose: 1 mg Furosemide (Lasix) 20 mg PO DAILY [facility] Last Admin: 12/09/17 09:13 Dose: 20 mg Heparin Sodium (Beef Lung) (Heparin 500 Unit/5 Ml (100/Ml)) 500 unit IV UD PRN PRN Reason: HEPARIN FLUSH Sodium Chloride () 1,000 mls @ 0 mls/hr IV .Q0M [facility] PRN Reason: KVO Magnesium Hydroxide (Milk Of Magnesia) 30 ml PO DAILY PRN PRN Reason: Constipation Methimazole (Tapazole) 5 mg PO MoTh@1000 [facility] Last Admin: 12/09/17 09:13 Dose: 5 mg Metoprolol Succinate (Toprol Xl (Beta Bebe)) 25 mg PO BID [facility] Midodrine (Proamatine) 5 mg PO TID [facility] Last Admin: 12/09/17 13:27 Dose: 5 mg Multivitamins (Multivitamin) 1 tablet PO DAILY@0800 [facility] Last Admin: 12/09/17 09:13 Dose: 1 tablet Nitroglycerin (Nitrostat) 0.4 mg SUBLINGUAL Q5M PRN PRN Reason: CHEST PAIN Ondansetron HCl (Zofran) 4 mg IV Q8H PRN PRN PRN Reason: NAUSEA Pantoprazole Sodium (Protonix) 20 mg PO DAILY [facility] Last Admin: 12/09/17 09:13 Dose: 20 mg Potassium Chloride (K-Dur) 20 meq PO DAILYCM [facility] Last Admin: 12/09/17 09:20 Dose: 20 meq Sodium Chloride () 5 - 30 ml IV UD PRN PRN Reason: SALINE FLUSH Last Admin: 12/09/17 13:27 Dose: 10 ml Tamsulosin HCl (Flomax) 0.4 mg PO DAILY@1730 [facility] Last Admin: 12/08/17 18:30 Dose: 0.4 mg Medical Necessity - Tobacco Use Smoking Status: Former smoker Assessment/Plan All Active Problems (Last Reviewed 12/05/17 @ 15:18 by Johnson Roque DO) CHF (congestive heart failure) (Acute) Hyperthyroidism (Acute) Partial bowel obstruction (Acute) 1. Orthostatic hypotension, on Midodrine, metoprolol decreased to 12mg twice daily, continue to monitor 2. Acute diastolic CHF exacerbation, resolved. On Lasix 20mg po jay, on reduced dose of metoprolol. 3. CAD s/p cath, elem multivessel CAD, on aspirin, statin, beta-bebe 4. CKD II - stable 5. CAD s/p CABG, stents, on aspirin, statin, beta-bebe 6. Chronic A. fib, on beta bebe, not on oral anticoagulation 7. Hyperlipidemia, on statin 8. Hyperthyroidism, on methimazole. TSH normal. concern for amio causing thyroid issues in the past although this has not been confirmed. 9. DVT ppx - Heparin SC Code Visit Inpatient E&M: 87968 Subs Hosp L2
[2017-12-09] MEDS: Tamsulosin HCl 0.4 MG Capsule PO (17:19)
--- NOTE | 2017-12-09 18:11 | PCM.PN.CARD ---
Subjectve: The patient has been reported as still being dizzy and lightheaded upon standing. There is still concern about his balance and gait. He denies any ongoing chest discomfort or worsening shortness of breath/dyspnea. Objective: Vital Signs Temp Pulse Resp BP Pulse Ox 98.3 F 93 16 140/74 H 99 12/09/17 13:24 12/09/17 15:11 12/09/17 13:24 12/09/17 13:24 12/09/17 13:24 Oxygen Delivery Method Room Air Weight: 156 lb 11.979 oz Body Mass Index (BMI) 25.0 Orthostatic Vital Signs Start: 12/08/17 10:18 Freq: q24h Status: Active Protocol: Activity Type Activity Date Activity User E-Sign Co-Sign Detail Recorded Client Recorded Date Recorded By Document 12/09/17 06:45 LRM [id number] 12/09/17 09:27 LRM 12/09/17 06:45 Orthostatic Vitals Standing -Blood Pressure (90/60-120/80 mm Hg) 69/30 L -Extremity Use Right Arm -Pulse Rate (60-100 beats/min) 92 Sitting -Blood Pressure (90/60-120/80 mm Hg) 87/46 L -Extremity Use Right Arm -Pulse Rate (60-100 beats/min) 92 Lying -Blood Pressure (90/60-120/80 mm Hg) 95/44 L -Extremity Use Right Arm -Pulse Rate (60-100 beats/min) 92 12/09/17 09:26 Nursing Note by Caroline Justice obtained per police shift commander MARIA LUISA Perry. Charted in paper chart as well. Initialized on 12/09/17 09:26 - END OF NOTE Intake and Output for Last 24 Hours 12/07/17 12/08/17 12/09/17 23:59 23:59 23:59 Intake Total 720 / 720 580 / 580 100 / 100 Output Total 925 / 925 575 / 575 Balance -205 / -205 5 / 5 100 / 100 General: Awake, Alert, Oriented x 3, Cooperative, No Acute Distress Neck: No JVD Lungs: Clear to auscultation Cardiovascular: Irregular Rhythm, Normal S1, Normal S2 Abdomen: Bowel Sounds Present, Soft, Non Tender Extremities: No edema 12/09/17 06:05: Sodium 143, Potassium 4.0, Chloride 110 H, Carbon Dioxide 26.0, Anion Gap 7, BUN 30 H, Creatinine 1.03, Est GFR (MDRD) Af Amer 89, Est GFR (MDRD) Non-Af 74, BUN/Creatinine Ratio 29.1 H, Glucose 93, Calcium 9.1 12/09/17 08:05: Troponin I 0.016 Rhythm: Atrial fibrillation with intermittent rapid ventricular response Medical Necessity - Tobacco Use Smoking Status: Former smoker Assessment/Plan 1. Congestive heart failure The patient appears to have improvement status post medical management. He has undergone further evaluation with noninvasive and invasive studies. Based upon his invasive studies he did not require additional catheter based revascularization procedure. Thus he will continue conservative medical management. 2. CAD status post PCI status post CABG The patient does have an extensive history of underlying coronary artery disease/graft vessel disease. He has undergone further evaluation with diagnostic cardiac catheterization. His findings were similar to his previous findings from 2015. He did not require additional catheter based revascularization therapy. Thus she will continue medical management as tolerated. 3. Atrial fibrillation The patient has had atrial fibrillation. He has been on rate control therapy. He has not been on anticoagulant therapy-at least recently-based upon previous concerns of difficulty taking his medications as prescribed and difficulty with his balance and gait and falling episodes. He will continue antiplatelet therapy and rate control therapy. With respect to his rate control therapy, if he cannot tolerate higher dose beta-seth based upon his decreased blood pressure he may need to be considered for alternative agent such as digitalis. If he does not do well on medical therapy then he may need to be considered for EP consultation for possible AV node ablation allowing his permanent pacemaker to support him with a ventricular paced rhythm. 4. Permanent pacemaker The patient has had underlying conduction system related issues. He does have a permanent pacemaker in place. It has been functioning appropriately. 5. Hyperlipidemia The patient will continue risk factor evaluation care. 6. Hypertension The patient will need continued antihypertensive therapy with adjustment as deemed appropriate. Comment: The above has been discussed and reviewed with the patient. This note was generated with [employer].itation software. It may contain incorrect words, spelling, and punctuation that were not noted in checking the note before signing.
[2017-12-09] MEDS: Digoxin 250 MCG Tablet PO (18:52)
[2017-12-09] MEDS: Metoprolol(XL)Succ 25 MG Tablet 12.5 MG PO (21:15)
[2017-12-09] MEDS: Atorvastatin Calcium 80 MG Tablet PO (21:15)
[2017-12-10] VITALS (9 sets, daily range): BP systolic 84–123; BP diastolic 41–57; PULSE 78–148; RESP 16–18; TEMP 36.6–36.8; O2SAT 94–97
[2017-12-10] MEDS: Midodrine HCl 5 MG Tablet PO (06:16)
--- NOTE | 2017-12-10 07:33 | PCM.PN.HOSP ---
Subjective: Patient seen and examined. He feels better. Slightly dizzy with getting up. Denies chest pain, palpitations, leg edema. Objective: General: Alert, Oriented x3, Cooperative, No apparent distress HEENT: Atraumatic, PERRLA, EOMI, Normocephalic Oral: Moist Mucosa Neck: Supple Lungs: Clear to auscultation, Normal air movement Cardiovascular: Regular rate, Regular Rhythm, Normal S1, Normal S2, No murmurs Abdomen: Bowel Sounds Present, Soft, Non Tender, Non-Distended, No Hepato-splenomegaly Extremities: No edema Skin: No rashes, No breakdown Musculoskeletal: No Tenderness to Palpation of Joints or Extremities Lymphatic: No Cervical, Supraclavicular, or Inguinal Adenopathy Neurological: Cranial nerves II-XII grossly intact, Neuro grossly intact Psych/Mental Status: Normal Affect, Appropriate Vitals/I&O's: Vital Signs Temp Pulse Resp BP Pulse Ox 97.8 F 90 16 123/50 H 96 12/10/17 06:15 12/10/17 06:55 12/10/17 06:15 12/10/17 06:15 12/10/17 06:15 Oxygen Delivery Method Room Air Weight: 70.2 kg Body Mass Index (BMI) 25.0 Orthostatic Vital Signs Start: 12/08/17 10:18 Freq: Q12H Status: Active Protocol: Activity Type Activity Date Activity User E-Sign Co-Sign Detail Recorded Client Recorded Date Recorded By Document 12/10/17 01:30 CAD [id number] 12/10/17 01:45 CAD 12/10/17 01:30 Orthostatic Vitals Standing -Blood Pressure (90/60-120/80) 84/47 L -Extremity Use Left Arm -Pulse Rate (60-100) 148 H Sitting -Blood Pressure (90/60-120/80) 105/51 L -Extremity Use Left Arm -Pulse Rate (60-100) 97 Lying -Blood Pressure (90/60-120/80) 116/57 L -Extremity Use Left Arm -Pulse Rate (60-100) 91 Intake and Output for Last 24 Hours 12/08/17 12/09/17 12/10/17 23:59 23:59 23:59 Intake Total 580 / 580 250 / 250 240 / 240 Output Total 575 / 575 300 / 300 Balance 5 / 5 250 / 250 -60 / -60 Laboratory Results 12/09/17 08:05: Troponin I 0.016 Current Medications Acetaminophen (Tylenol) 650 mg PO Q6H PRN PRN PRN Reason: Mild Pain (1-3)/Temp > 100.7 F Aspirin (Aspirin, Baby) 81 mg PO DAILY@0800 [facility] Last Admin: 12/09/17 09:19 Dose: 81 mg Atorvastatin Calcium (Lipitor) 80 mg PO QHS [facility] Last Admin: 12/09/17 21:15 Dose: 80 mg Calcium/Vitamin D (Os-Kwadwo 500mg + D) 1 tablet PO DAILYCM [facility] Last Admin: 12/09/17 09:16 Dose: 1 tablet Digoxin (Lanoxin) 250 mcg PO DAILY [facility] Last Admin: 12/09/17 18:52 Dose: 250 mcg Enoxaparin Sodium (Lovenox) 40 mg SC DAILY@1000 [facility] Last Admin: 12/09/17 09:20 Dose: 40 mg Ergocalciferol (Vitamin D) 50,000 unit PO QMONTH [facility] Last Admin: 12/05/17 17:17 Dose: 50,000 unit Finasteride (Proscar) 5 mg PO DAILY [facility] Last Admin: 12/09/17 09:12 Dose: 5 mg Folic Acid (Folic Acid) 1 mg PO DAILY@0800 [facility] Last Admin: 12/09/17 09:20 Dose: 1 mg Furosemide (Lasix) 20 mg PO DAILY [facility] Last Admin: 12/09/17 09:13 Dose: 20 mg Heparin Sodium (Beef Lung) (Heparin 500 Unit/5 Ml (100/Ml)) 500 unit IV UD PRN PRN Reason: HEPARIN FLUSH Sodium Chloride () 1,000 mls @ 0 mls/hr IV .Q0M [facility] PRN Reason: KVO Magnesium Hydroxide (Milk Of Magnesia) 30 ml PO DAILY PRN PRN Reason: Constipation Methimazole (Tapazole) 5 mg PO MoTh@1000 [facility] Last Admin: 12/09/17 09:13 Dose: 5 mg Metoprolol Succinate (Toprol Xl (Beta Bebe)) 12.5 mg PO BID [facility] Last Admin: 12/09/17 21:15 Dose: 12.5 mg Midodrine (Proamatine) 5 mg PO TID [facility] Last Admin: 12/10/17 06:16 Dose: 5 mg Multivitamins (Multivitamin) 1 tablet PO DAILY@0800 [facility] Last Admin: 12/09/17 09:13 Dose: 1 tablet Multivitamins (Allbee W/C Caplet, Thera B Comp/C) 2 capsule PO DAILY [facility] Nitroglycerin (Nitrostat) 0.4 mg SUBLINGUAL Q5M PRN PRN Reason: CHEST PAIN Ondansetron HCl (Zofran) 4 mg IV Q8H PRN PRN PRN Reason: NAUSEA Pantoprazole Sodium (Protonix) 20 mg PO DAILY [facility] Last Admin: 12/09/17 09:13 Dose: 20 mg Potassium [facility] Last Admin: 12/09/17 09:20 Dose: 20 meq Sodium Chloride () 5 - 30 ml IV UD PRN PRN Reason: SALINE FLUSH Last Admin: 12/09/17 13:27 Dose: 10 ml Tamsulosin HCl (Flomax) 0.4 mg PO DAILY@1730 [facility] Last Admin: 12/09/17 17:19 Dose: 0.4 mg Medical Necessity - Tobacco Use Smoking Status: Former smoker Assessment/Plan All Active Problems (Last Reviewed 12/05/17 @ 15:18 by Johnson Roque DO) CHF (congestive heart failure) (Acute) Hyperthyroidism (Acute) Partial bowel obstruction (Acute) 1. Orthostatic hypotension, improved. Orthostatic hypotension is negative today, on Midodrine, metoprolol decreased to 12mg twice daily, continue to monitor 2. Acute diastolic CHF exacerbation, resolved. On Lasix 20mg po jay, on reduced dose of metoprolol. 3. CAD s/p cath, [place] multivessel CAD, on aspirin, statin, beta-bebe 4. CKD II - stable 5. CAD s/p CABG, stents, on aspirin, statin, beta-bebe 6. Chronic A. fib, on beta bebe, not on oral anticoagulation 7. Hyperlipidemia, on statin 8. Hyperthyroidism, on methimazole. TSH normal. concern for amio causing thyroid issues in the past although this has not been confirmed. 9. DVT ppx - Heparin SC Code Visit Inpatient E&M: [id number] Subs Hosp L2
[2017-12-10] MEDS: Aspirin 81 MG TAB.CHEW PO (08:33)
[2017-12-10] MEDS: Multivitamins,Therapeutic Tablet 1 TABLET PO (08:33)
[2017-12-10] MEDS: Calcium Carb/Vitamin D 1 TABLET Tablet PO (08:33)
[2017-12-10] MEDS: Vitamin B Comp W-C Capsule 2 CAP PO (08:33)
[2017-12-10] MEDS: Folic Acid 1 MG Tablet PO (08:33)
[2017-12-10] MEDS: Enoxaparin 40 MG/0.4 ML Syringe SC (08:34)
[2017-12-10] MEDS: Furosemide 20 MG Tablet PO (08:34)
[2017-12-10] MEDS: Metoprolol(XL)Succ 25 MG Tablet 12.5 MG PO (08:34)
[2017-12-10] MEDS: Finasteride 5 MG Tablet PO (08:34)
[2017-12-10] MEDS: Digoxin 250 MCG Tablet PO (08:37)
[2017-12-10] MEDS: Pantoprazole Sodium 20 MG Tablet PO (08:37)
--- NOTE | 2017-12-10 09:46 | PCM.PN.CARD ---
Subjectve: The patient states he feels well at rest. He has been getting up with assistance based upon concerns of his dizziness and off-balance sensation and concerns of falling. He is being evaluated for what he may need at home with respect to his ongoing care. In the interim he has no complaints of chest discomfort or worsening shortness of breath/dyspnea. Objective: Vital Signs Temp Pulse Resp BP Pulse Ox 97.8 F 86 16 123/50 H 96 12/10/17 06:15 12/10/17 08:34 12/10/17 06:15 12/10/17 06:15 12/10/17 06:15 Oxygen Delivery Method Room Air Weight: 154 lb 12.232 oz Body Mass Index (BMI) 25.0 Orthostatic Vital Signs Start: 12/08/17 10:18 Freq: Q12H Status: Active Protocol: Activity Type Activity Date Activity User E-Sign Co-Sign Detail Recorded Client Recorded Date Recorded By Document 12/10/17 01:30 CAD [id number] 12/10/17 01:45 CAD 12/10/17 01:30 Orthostatic Vitals Standing -Blood Pressure (90/60-120/80) 84/47 L -Extremity Use Left Arm -Pulse Rate (60-100) 148 H Sitting -Blood Pressure (90/60-120/80) 105/51 L -Extremity Use Left Arm -Pulse Rate (60-100) 97 Lying -Blood Pressure (90/60-120/80) 116/57 L -Extremity Use Left Arm -Pulse Rate (60-100) 91 Intake and Output for Last 24 Hours 12/08/17 12/09/17 12/10/17 23:59 23:59 23:59 Intake Total 580 / 580 250 / 250 240 / 240 Output Total 575 / 575 300 / 300 Balance 5 / 5 250 / 250 -60 / -60 General: Awake, Alert, Oriented x 3, No Acute Distress Neck: No JVD Lungs: Clear to auscultation Cardiovascular: Irregular Rhythm, Normal S1, Normal S2 Abdomen: Bowel Sounds Present, Soft, Non Tender Extremities: No edema Rhythm: Atrial fibrillation with intermittent rapid ventricular response Medical Necessity - Tobacco Use Smoking Status: Former smoker Assessment/Plan 1. Congestive heart failure The patient appears to have improvement status post medical management. Thus he will continue conservative medical management. 2. CAD status post PCI status post CABG The patient does have an extensive history of underlying coronary artery disease/graft vessel disease. He has undergone further evaluation with diagnostic cardiac catheterization. His findings were similar to his previous findings from 2015. He did not require additional catheter based revascularization therapy. Thus she will continue medical management as tolerated. 3. Atrial fibrillation The patient has had atrial fibrillation. He has been on rate control therapy. He has not been on anticoagulant therapy-at least recently-based upon previous concerns of difficulty taking his medications as prescribed and difficulty with his balance and gait and falling episodes. He will continue antiplatelet therapy and rate control therapy. Hopefully the digitalis will be tolerated and benefit his rate. If he does not do well on medical therapy then he may need to be considered for EP consultation for possible AV node ablation allowing his permanent pacemaker to support him with a ventricular paced rhythm. 4. Permanent pacemaker The patient has had underlying conduction system related issues. He does have a permanent pacemaker in place. It has been functioning appropriately. 5. Hyperlipidemia The patient will continue risk factor evaluation care. 6. Hypertension The patient will need continued antihypertensive therapy with adjustment as deemed appropriate. Comment: The above has been discussed and reviewed with the patient. This note was generated with [employer] dictation software. It may contain incorrect words, spelling, and punctuation that were not noted in checking the note before signing.
--- NOTE | 2017-12-10 11:31 | CASEMGMT ---
RN CM Note. Call to MARIUSZ Malhotra [facility] to update that physician would like Home Health nurse to know that pt will not be dc'd on Lasix and recommend CHF teaching and wt monitoring during home health visits. Rupal ANDRESN RN ACM
--- NOTE | 2017-12-10 11:44 | PCM.DC ---
- Discharge Diagnoses Current Active Problems: Current Active and Chronic Problems (Last Reviewed 12/05/17 @ 15:18 by Johnson Roque DO) CHF (congestive heart failure) (Acute) You will use the following diet at home:: Cardiac Your food should be the consistency of: Regular Your liquids should be the consistency of: Regular/Thin Discharge Activity: Return to Normal Activity Additional Instructions: Take note to changes in your medications. Be careful when going from sitting to standing. You should slowly get up from sitting to standing. Continue to wear your ZUHAIR hoses - 12 hours on, 12 hours off. You have been taken off Lasix on account of low blood pressure. Continue to follow a low salt, heart healthy diet. Weigh yourself everyday. You will be followed up by Home health team - therapy and nurses. You should see Dr. Jeffers and your PCP in 2-4 weeks. Allergies/Adverse Reactions: Allergies No Known Allergies Allergy (Verified 12/02/17 13:27) Medications to take at Discharge Aspirin [Aspirin, Baby] 81 mg PO DAILY@0800 #0 tab.chew 11/26/14 Ergocalciferol [Vitamin D] 50,000 unit PO QMONTH #0 cap 11/26/14 Finasteride [Proscar] 5 mg PO DAILY #30 tab 11/26/14 Folic Acid 1 mg PO DAILY@0800 #0 tab 11/26/14 Nitroglycerin [Nitrostat] 0.4 mg SUBLINGUAL Q5M PRN #1 bottle 11/26/14 Omeprazole [Prilosec] 20 mg PO DAILY 02/19/15 Rosuvastatin Calcium [Crestor] 40 mg PO DAILY 02/19/15 Lipo-Flavonoid Plus 2 tab PO BID 12/13/15 multivitamin tablet 1 tab PO QAM 04/08/17 Calcium Phosphate Trib/Vit D3 [Citracal + D3 Gummies] 1 ea PO DAILY 07/29/17 Tamsulosin HCl [Flomax] 0.4 mg PO DAILY 07/29/17 methimazole 5 mg tablet 5 mg PO .COMPLEX #12 tab 08/12/17 Vitamin B Complex 2 each PO DAILY 12/05/17 Digoxin [Lanoxin] 250 mcg PO DAILY #30 tab 12/10/17 Metoprolol(XL)Succ [Toprol Xl (Beta Bebe)] 12.5 mg PO BID #60 tab 12/10/17 Midodrine HCl [Proamatine] 5 mg PO TID #90 tab 12/10/17 The following prescriptions were given: Digoxin [Lanoxin] 250 mcg PO DAILY #30 tab Metoprolol(XL)Succ [Toprol Xl (Beta Bebe)] 12.5 mg PO BID #60 tab Midodrine HCl [Proamatine] 5 mg PO TID #90 tab Orders to be completed after discharge: Basic Metabolic Profile (BMP) Time Frame: 1 Week, Location: Laboratory Digoxin Level Time Frame: 1 Week, Location: Laboratory Primary Care Physician: Jono Harrington Chi, MD [Primary Care Provider] - Please follow up with your Primary Care Physician in: 1-2 weeks Test Results: Test results from this visit will be discussed in further detail at your follow-up appointment, if applicable. Please Follow Up With: Jono Harrington Chi, MD Please Follow Up With: Jerry Jeffers MD When: within 2 weeks Proposed Discharge Date: 12/10/17
--- NOTE | 2017-12-10 11:51 | PCM.DC.SUM ---
Discharge Date and Diagnosis Date of Admission: 12/05/17 Date of Discharge: 12/10/17 - Primary Discharge Diagnosis Active and Suspected Problems (Last Reviewed 12/05/17 @ 15:18 by Johnson Roque DO) CHF (congestive heart failure) (Acute), diastolic Othostatic hypotension - Secondary Discharge Diagnosis Chronic Problems (Last Reviewed 12/05/17 @ 15:18 by Johnson Roque DO) Atherosclerosis of coronary artery of [place] heart without angina pectoris (Chronic) Chronic atrial fibrillation (Chronic) Encounter for long-term current use of high risk medication (Chronic) Abnormal result of cardiovascular function study (Chronic) Chronic diastolic (congestive) heart failure (Chronic) Atherosclerosis of coronary artery bypass graft without angina pectoris (Chronic) Paroxysmal atrial fibrillation (Chronic) Thyroid dysfunction (Chronic) Mild hyperthyroidism. Will order thyroid US and antibodies. Start on low dose tapazole. 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) CABG November 1997, ROMERO to LAD, SVG from aorta to ramus intermedius artery Coronary artery disease (Chronic) Sick sinus syndrome (Chronic) Kidney disease, chronic, stage III (GFR 30-59 ml/min) (Chronic) Hyperlipidemia (Chronic) Hypothyroidism (Chronic) Hypertension (Chronic) Afib (Chronic) Cardiac pacemaker (Chronic) Pacemaker implant June 2005; Pacemaker generator change 11/28/12; S/P PTCA (percutaneous transluminal coronary angioplasty) (Chronic) 02/20/98 PTCA to end stent restenosis of mid cx; 07/18/97 PTCA/stent of obtuse marginal & distal CX; 09/13/97 Rotational atherectomy of CX; 09/25/97, 11/01/97 PTSC/stent of CX; PTCA with stenting of LAD02/21/03; Thyroid disease (Chronic) Hospital Course and Treatment Imaging Results: Clinical Impression(s) from Imaging Studies Chest X-Ray 12/05/17 12:55 IMPRESSION: COPD with stable blunting of the bilateral costophrenic angles. No acute airspace disease. Electronically Signed: George Kong DO at 13:54 EDT Tel , Service support , Cardiology Operations: None Procedures: None Summary of Care Provided: The patient is a 82 year old M withg PMHx of chronic diastolic CHF, chronic Afib, CAD s/p double CABG, stents, HTN, HLD, hypothyroid, CKDIII comes in with SOB at rest and on exertion, associated with orthopnea and PND. EKG had shown new T wave inversions. Troponins were however negative. Cardiology was consulted, findings were unremarkable. He was managed as acute on chronic diastolic CHF with Lasix. Patient became hypotensive with significant positive orthostatic hypotensive vitals. His lasix dose was reduced, as well as his metoprolol. He was discharged off Lasix with strict orders to have daily weights, fluid restriction and cardiology follow-up and resume Lasix if he should gain weight rapidly. Discharge Diet: Low fat/ Low Cholesterol, 2000 mg Sodium Diet Discharge Activity: Return to Normal Activity Home Medications: Medications to take at Discharge Aspirin [Aspirin, Baby] 81 mg PO DAILY@0800 #0 tab.chew 11/26/14 Ergocalciferol [Vitamin D] 50,000 unit PO QMONTH #0 cap 11/26/14 Finasteride [Proscar] 5 mg PO DAILY #30 tab 11/26/14 Folic Acid 1 mg PO DAILY@0800 #0 tab 11/26/14 Nitroglycerin [Nitrostat] 0.4 mg SUBLINGUAL Q5M PRN #1 bottle 11/26/14 Omeprazole [Prilosec] 20 mg PO DAILY 02/19/15 Rosuvastatin Calcium [Crestor] 40 mg PO DAILY 02/19/15 Lipo-Flavonoid Plus 2 tab PO BID 12/13/15 multivitamin tablet 1 tab PO QAM 04/08/17 Calcium Phosphate Trib/Vit D3 [Citracal + D3 Gummies] 1 ea PO DAILY 07/29/17 Tamsulosin HCl [Flomax] 0.4 mg PO DAILY 07/29/17 methimazole 5 mg tablet 5 mg PO .COMPLEX #12 tab 08/12/17 Vitamin B Complex 2 each PO DAILY 12/05/17 Digoxin [Lanoxin] 250 mcg PO DAILY #30 tab 12/10/17 Metoprolol(XL)Succ [Toprol Xl (Beta Bebe)] 12.5 mg PO BID #60 tab 12/10/17 Midodrine HCl [Proamatine] 5 mg PO TID #90 tab 12/10/17 Following Prescrptions Were Given to Patient: Digoxin [Lanoxin] 250 mcg PO DAILY #30 tab Metoprolol(XL)Succ [Toprol Xl (Beta Bebe)] 12.5 mg PO BID #60 tab Midodrine HCl [Proamatine] 5 mg PO TID #90 tab Primary Care Physician: Jono Harrington Chi, MD [Primary Care Provider] - Please follow up with your Primary Care Physician in: 1-2 weeks Please Follow Up With: Jono Harrington Chi, MD Please Follow Up With: Jerry Jeffers MD When: within 2 weeks Disposition: Home with Home Health Minutes spent on discharge:: 40 Patient Condition:: Stable Medical Necessity - Tobacco Use Smoking Status: Former smoker Meaningful Use Info Meaningful Use Diagnoses (Choose all that apply): None applicable Code Visit Inpatient E&M: 99237 Disch Hosp
== END 2017-12-10 12:49 | disposition home or self-care (01) | DRG 286 ==
LOC: ED 13:35 → PCU 14:40
PROVIDERS: Hospitalist; Internal Medicine Cardiovascular Disease; Physician Assistant; Emergency Provider Emergency Medicine; Family Provider Family Medicine Geriatric Medicine; PCP Family Medicine Geriatric Medicine; Visit Provider Internal Medicine
DX: I13.0 Hypertensive heart and chronic kidney disease with heart failure and stage 1 through stage 4 chronic kidney disease, or unspecified chronic kidney disease (principal); I50.33 Acute on chronic diastolic (congestive) heart failure; I47.2 Ventricular tachycardia; I48.2 Chronic atrial fibrillation; I25.10 Atherosclerotic heart disease of native coronary artery without angina pectoris; Z95.5 Presence of coronary angioplasty implant and graft; E78.5 Hyperlipidemia, unspecified; Z87.891 Personal history of nicotine dependence; Z95.0 Presence of cardiac pacemaker; E05.90 Thyrotoxicosis, unspecified without thyrotoxic crisis or storm; I95.1 Orthostatic hypotension; N18.3 Chronic kidney disease, stage 3 (moderate); Z95.1 Presence of aortocoronary bypass graft
CPT/HCPCS: 36415; 71046; 78452; 80048; 81001; 83735; 83880; 84443; 84484; 85014; 85018; 85025; 85610; 85730; 93005; 93017; 93306; 93459; 97110; 97116; 97162; 97166; 97530; 99152; 99153; 99285; A9500; J7040; J7050; Q9967; A4216; C1769; C1894; J1940; J2785

== ENCOUNTER → 2017-12-17 08:25 | Outpatient (CLI) | payer MEDICARE, OTHER, SELFPAY ==
[2017-12-17 09:27] LABS: Anion Gap 7 (5-15); BUN 19 mg/dL (7-18); BUN/Creat Ratio 16.1 RATIO (10-20); Calcium,Total 9.6 mg/dL (8.5-10.1); Chloride 110 mmol/L (98-107); Creatinine, Serum 1.18 mg/dL (0.70-1.30); EST Glomerular Filtration Rate 63 mL/min (>60); Est Glom Filt Rate - Afr Amer 76 mL/min (>60); Glucose 95 mg/dL (74-106); Potassium 4.3 mmol/L (3.5-5.1); Sodium Level 144 mmol/L (136-145)
[2017-12-17 09:51] LABS: Digoxin Level 1.52 ng/mL (0.80-2.00)
== END ==
PROVIDERS: Family Provider Family Medicine Geriatric Medicine; PCP Family Medicine Geriatric Medicine; Visit Provider Internal Medicine
DX: I50.9 Heart failure, unspecified (principal); I48.91 Unspecified atrial fibrillation; Z51.81 Encounter for therapeutic drug level monitoring
CPT/HCPCS: 36415; 80048; 80162

== ENCOUNTER → 2018-01-04 13:14 | Outpatient (CLI) | payer MEDICARE, OTHER, SELFPAY ==
--- NOTE | 2018-01-04 14:18 | CT_ITS ---
STUDY: CT ABDOMEN AND PELVIS WITH CONTRAST REASON FOR EXAM: Male, 82 years old. Abdominal pain. History of kidney stones. RADIATION DOSAGE (If Supplied By Facility): CTDIvol = ( 19.25 ) mGy, DLP = ( 848.66 ) mGycm TECHNIQUE: Transaxial images were obtained from the dome of the diaphragm to the symphysis pubis with oral contrast. 100 ml of Isovue 300 contrast was administered. Sagittal and coronal images were reconstructed. Individualized dose optimization techniques were used for this CT. COMPARISON: Comparison is made with prior study dated July 29, 2017. FINDINGS: Small bilateral pleural effusions left greater than right. There is evidence of old left seventh eighth and ninth rib fractures. 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 Normal liver. There are surgical clips in the gallbladder fossa consistent with a prior cholecystectomy. Normal spleen. Normal pancreas. Normal bilateral adrenal glands. Multiple small nonobstructive right intrarenal calculi. The largest measures 4 mm. Tiny nonobstructive left intrarenal calculus. There is a 5.9 cm x 6.3 cm cyst arising from the lateral mid inferior aspect of the left kidney. There is a small hiatal hernia. Normal small intestine. There are multiple colonic diverticula consistent with diverticulosis. There is non-visualization of the appendix. There is diffuse atherosclerotic calcification of the abdominal aorta and its major visceral branches, without a demonstrated aneurysm. Normal inferior vena cava. Normal retroperitoneum. Normal urinary bladder. There are prostatic calcifications. No evidence of prior umbilical hernia repair with a mesh. There are diffuse degenerative changes of the visualized lumbar spine. Stable wedging of the T12 and L1 vertebrae. CT/Abdomen/Pelvis WITH Contrast IMPRESSION: Sigmoid diverticulosis. Nonobstructive bilateral intrarenal calculi. Stable left renal cyst. Small bilateral pleural effusions left greater than right. Electronically Signed: Royer Pineda MD at 15:44 EDT Tel [phone], Service support ,
[2018-01-04 17:03] LABS: Absolute Lymphocyte Count 1.15 X10^3/ul (0.83-4.51); Absolute Neutrophil Count 4.3 X10^3/uL (2.0-7.7); Basophil# 0.02 X10^3/uL; Basophil% 0.3 % (0-1); Eosinophil# 0.09 X10^3/uL; Eosinophils% 1.4 % (0-5); Hematocrit 37.7 % (40-54); Hemoglobin 12.1 g/dl (13.0-16.5); Lymphocyte # 1.15 X10^3/ul (4.0); Lymphocyte % 18.3 % (19-41); Mean Corp Hgb Conc 32.1 g/gl (32-36); Mean Corpuscular Volume 93.3 fL (80-94); Mean Platelet Vol. 10.8 fl (6.2-12.0); Monocyte# 0.72 X10^3/uL; Monocyte% 11.4 % (0-10); Neutrophil # 4.32 X10^3/uL (2.7-7.7); Neutrophil % 68.6 % (47-70); Platelet Count 184 K/mm3 (150-450); RBC Distribution Width CV 15.8 % (11.6-14.6); RBC Distribution Width SD 53.9 fl (35.1-43.9); Red Blood Count 4.04 M/mm3 (4.6-6.2); White Blood Count 6.3 K/mm3 (4.4-11.0)
[2018-01-04 17:18] LABS: POSITIVE COUNT NO; POSITIVE DIFFERENTIAL NO
[2018-01-04 17:24] LABS: POSITIVE MORPHOLOGY NO
[2018-01-04 17:30] LABS: ALB/GLOB Ratio 1.2 RATIO (0.9-2.4); AST(SGOT) 20 U/L (15-37); Alanine Aminotransfer ALT/SGPT 18 U/L (16-61); Albumin, Serum 3.6 g/dL (3.2-5.0); Alkaline Phosphatase 76 U/L (45-117); Amylase 40 U/L (25-115); Anion Gap 11 (5-15); BUN 17 mg/dL (7-18); BUN/Creat Ratio 15.7 RATIO (10-20); Calcium,Total 9.5 mg/dL (8.5-10.1); Chloride 110 mmol/L (98-107); Creatinine, Serum 1.08 mg/dL (0.70-1.30); EST Glomerular Filtration Rate 70 mL/min (>60); Est Glom Filt Rate - Afr Amer 84 mL/min (>60); Glucose 93 mg/dL (74-106); Lipase 123 U/L (73-393); Protein, Total 6.6 g/dL (6.4-8.2); Sodium Level 145 mmol/L (136-145)
== END ==
PROVIDERS: Family Provider Family Medicine Geriatric Medicine; PCP Family Medicine Geriatric Medicine; Visit Provider Family Medicine Geriatric Medicine
DX: N39.0 Urinary tract infection, site not specified (principal); K57.30 Diverticulosis of large intestine without perforation or abscess without bleeding
CPT/HCPCS: 36415; 74177; 80053; 82150; 83690; 85025; Q9967

== ENCOUNTER → 2018-01-05 12:50 | Outpatient (CLI) | payer MEDICARE, OTHER, SELFPAY ==
--- NOTE | 2018-01-05 13:10 | US_ITS ---
STUDY: RENAL ULTRASOUND - COMPLETE REASON FOR EXAM: Male, 82 years old. Renal cyst TECHNIQUE: Ultrasound evaluation of the kidneys was performed with real-time and static millard-scale imaging. COMPARISON: None. FINDINGS: RIGHT KIDNEY: Normal location of the right kidney, which is normal in size. The right kidney measures 9.7 x 5.5 x 4.1 cm. There is a normal cortex of the right kidney. The renal cortex measures 1.2 cm. There is no right renal mass or cyst. There is a small nonobstructing calculus. There is no right hydronephrosis. DISTAL RIGHT URETER: There is non-visualization of the distal right ureter. There is no demonstrated right ureterovesical junction calculus. There is a visualized right ureteral jet. LEFT KIDNEY: Normal location of the left kidney, which is normal in size. The left kidney measures 10.7 x 5.2 x 5.1 cm. There is a normal cortex of the left kidney. The renal cortex measures 1.5 cm. There is a cyst measuring 6.6 x 6.4 x 4.2 cm. There are no left renal calculi. There is no left hydronephrosis. DISTAL LEFT URETER: There is non-visualization of the distal left ureter. There is no demonstrated left ureterovesical junction calculus. There is a visualized left ureteral jet. BLADDER: The distended urinary bladder has a volume of 54.9 ml. US/Kidney and Bladder IMPRESSION: Large left renal cyst. Probable nonobstructing right renal calculus. No evidence for renal obstruction Electronically Signed: Sanford Calderon MD at 23:14 EDT , Service support ,
== END ==
PROVIDERS: Family Provider Family Medicine Geriatric Medicine; PCP Family Medicine Geriatric Medicine; Visit Provider Family Medicine Geriatric Medicine
DX: N28.1 Cyst of kidney, acquired (principal); N17.9 Acute kidney failure, unspecified
CPT/HCPCS: 76770

== ENCOUNTER 2018-01-07 08:39 | Emergency (ER) | payer MEDICARE, OTHER, SELFPAY ==
[2018-01-07 08:40] VITALS: BP 124/69; PULSE 76; RESP 15; TEMP 36.3; O2SAT 97; BMI 25.1
--- NOTE | 2018-01-07 09:01 | RAD_ITS ---
STUDY: X-RAY CHEST REASON FOR EXAM: Male, 82 years old. Chest pain and shortness of breath. TECHNIQUE: PA and lateral views of the chest. COMPARISON: Comparison is made with prior examination dated December 05, 2017. FINDINGS: EKG electrodes are seen. Small bilateral pleural effusions with mild bibasilar atelectasis left worse than right. 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 A left-sided dual-chamber pacemaker is seen. Normal mediastinum and jostin. Normal visualized pulmonary arteries. There is atherosclerotic calcification of the aortic arch with tortuosity. There is demineralization of the osseous structures. Almost complete collapse of the T12 vertebra. Normal visualized ribs, clavicles, and shoulders. There is no demonstrated abnormality of the visualized soft tissue structures of the upper abdomen. RAD/Chest PA and Lateral IMPRESSION: Small bilateral pleural effusions with underlying basilar atelectasis and/or scarring worse on the left side. Electronically Signed: Royer Pineda MD at 9:52 EDT Tel [phone], Service support ,
--- NOTE | 2018-01-07 09:01 | EKG12_ITS ---
Test Reason : CP Blood Pressure : / mmHG Vent. Rate : 080 BPM Atrial Rate : 202 BPM P-R Int : 000 ms QRS Dur : 102 ms QT Int : 392 ms P-R-T Axes : 000 049 245 degrees QTc Int : 452 ms Atrial fibrillation with frequent ventricular-paced complexes ST & T wave abnormality, consider inferior ischemia ST & T wave abnormality, consider anterolateral ischemia Abnormal ECG Confirmed by QUINTEN TABOR, HARRY ([id number]), deputy editor in chief JONATHAN RIVERA ([id number]) on 01/10/2018 3:16:25 PM Referred By: DANG Confirmed By:HARRY SHIPLEY MD
--- NOTE | 2018-01-07 09:05 | ED.VISSUMM ---
- ER Visit Summary Date of Service: 01/07/18 Chief Complaint: Shortness of breath and chest pain History of Present Illness: The patient is a 82 M reports chest pain and shortness of breath while lying in bed last night. He states pain started around midnight and persisted while he was lying in bed. It resolved around 7 AM after he got up and started moving around. He denies chest pain or shortness of breath at this time. He denies heartburn symptoms. He has not had cough. He states he has been to his doctor 3 times this week for similar. On review of records patient had a CAT scan and ultrasound of his abdomen this week. Patient did have a heart cath 1 month ago that looks unchanged compared to prior cath from 2015. Medical management is suggested. Physical Examination: Blood pressure is 05/19/1967, temperature 97.4, heart rate 76, respiratory rate 15, pulse ox 97% on room air. Patient sitting upright in bed no acute distress. He is alert and talkative. Heart is slightly irregular. Lung sounds are clear. Abdomen soft nontender. Lower exam examination reveals no significant tenderness or edema. Test Results: EKG is underlying A. fib with several paced beats with a ventricular rate of 80. He has anterior T inversions are unchanged when compared to prior. CBC was normal white count hemoglobin 12.9. Chemistry studies normal. Troponin is 0.516. BNP is 876. Digoxin is in therapeutic range. Two-view chest x-ray shows small bilateral pleural effusions with underlying atelectasis and/or scarring, worse in the left. CTA of the chest shows small bilateral pleural effusions. No PE. Emergency Department Course and Treatment: Patient was given aspirin. I spoke with Dr. Leo who reviewed his recent heart cath. His suspicion is that the troponin is elevated secondary to pressure from CHF. 2 hour repeat troponin is drawn and is already dropping. Patient is to restart his Lasix at 20 mg daily. While on the monitor here it was noted that the patient would snore and then hold his breath while sleeping. His oxygen saturations would drop and then he would wake up complaining of shortness of breath. I spoke with patient's primary care physician who will follow up on Wednesday and arrange sleep study as needed. Treatment Plan: [] Disposition: Discharge Impression: 1. CHF with elevated troponin 2. Sleep apnea This note was generated with Dragon dictation software. It may contain incorrect words, spelling, and punctuation that were not noted in review of the chart prior to signing ED Disposition - Plan for ED Patient: Chief Complaint: Shortness of Breath Referrals: Jono Harrington Chi, MD [Primary Care Provider] -
[2018-01-07 09:09] VITALS: BP 191/84; PULSE 73; RESP 17; O2SAT 92
[2018-01-07 09:14] LABS: Absolute Lymphocyte Count 1.18 X10^3/ul (0.83-4.51); Absolute Neutrophil Count 7.7 X10^3/uL (2.0-7.7); Basophil# 0.02 X10^3/uL; Basophil% 0.2 % (0-1); Eosinophil# 0.11 X10^3/uL; Eosinophils% 1.1 % (0-5); Hematocrit 38.5 % (40-54); Hemoglobin 12.9 g/dl (13.0-16.5); Lymphocyte # 1.18 X10^3/ul (4.0); Lymphocyte % 11.6 % (19-41); Mean Corp Hgb Conc 33.5 g/gl (32-36); Mean Corpuscular Hgb 30.7 pg (27.0-32.0); Mean Corpuscular Volume 91.7 fL (80-94); Mean Platelet Vol. 9.9 fl (6.2-12.0); Monocyte# 1.17 X10^3/uL; Monocyte% 11.5 % (0-10); Neutrophil # 7.66 X10^3/uL (2.7-7.7); Neutrophil % 75.5 % (47-70); Platelet Count 191 K/mm3 (150-450); RBC Distribution Width CV 15.9 % (11.6-14.6); RBC Distribution Width SD 53.3 fl (35.1-43.9); White Blood Count 10.2 K/mm3 (4.4-11.0)
[2018-01-07 09:15] LABS: POSITIVE COUNT NO; POSITIVE DIFFERENTIAL NO; POSITIVE MORPHOLOGY NO
[2018-01-07 09:30] LABS: Anion Gap 8 (5-15); BUN 20 mg/dL (7-18); BUN/Creat Ratio 18.9 RATIO (10-20); Calcium,Total 9.8 mg/dL (8.5-10.1); Chloride 109 mmol/L (98-107); Creatinine, Serum 1.06 mg/dL (0.70-1.30); EST Glomerular Filtration Rate 71 mL/min (>60); Est Glom Filt Rate - Afr Amer 86 mL/min (>60); Estimated Creatinine Clearance 52.88 ml/min; Glucose 98 mg/dL (74-106); Potassium 3.5 mmol/L (3.5-5.1); Sodium Level 145 mmol/L (136-145)
[2018-01-07 09:41] LABS: BNP,B-Type NATRIURETIC PEPTIDE 876.3 pg/mL (0-100)
[2018-01-07 10:29] LABS: Digoxin Level 0.95 ng/mL (0.80-2.00)
--- NOTE | 2018-01-07 10:47 | EKG12_ITS ---
Test Reason : SOB REPEAT Blood Pressure : / mmHG Vent. Rate : 074 BPM Atrial Rate : 375 BPM P-R Int : 000 ms QRS Dur : 102 ms QT Int : 390 ms P-R-T Axes : 000 043 237 degrees QTc Int : 432 ms Atrial fibrillation with frequent ventricular-paced complexes ST & T wave abnormality, consider inferior ischemia ST & T wave abnormality, consider anterolateral ischemia Abnormal ECG Confirmed by QUINTEN TABOR, HARRY ([id number]), photograph editor JONATHAN RIVERA ([id number]) on 01/10/2018 3:16:51 PM Referred By: DANG Confirmed By:HARRY SHIPLEY MD
[2018-01-07 10:56] VITALS: BP 157/73; PULSE 74; RESP 17; O2SAT 99
--- NOTE | 2018-01-07 10:57 | CT_ITS ---
STUDY: CTA CHEST REASON FOR EXAM: Male, 82 years old. SOB, chest pain x 1 month, worse now. Prior 2 vessel CABG, 4 stents, pacemaker. RADIATION DOSAGE (If Supplied By Facility): CTDIvol = ( 12.95 ) mGy, DLP = ( 607.54 ) mGycm TECHNIQUE: The examination was performed with the intravenous administration of 100mL ml of Isovue 370 contrast material. Post-processing of the angiographic images was performed, with multiplanar reformation and 3D reconstruction. Individualized dose optimization techniques were used for this CT. COMPARISON: X-ray December 05, 2017 FINDINGS: Normal enhancement of the main pulmonary artery and right and left pulmonary arteries. Normal enhancement of the bilateral peripheral pulmonary arteries. There is no demonstrated pulmonary embolism. There is atherosclerotic calcification of the aortic arch with tortuosity. Normal heart and pericardium. There are a few enlarged mediastinal and hilar lymph nodes. Normal visualized trachea and bronchi. There are moderate bilateral pleural effusions. There is bibasilar compressive atelectasis. There are emphysematous changes of the upper lungs. Normal chest wall structures. There are degenerative changes of thoracic spine. There are T12 and L1 compression fractures with partial bony fusion. There is suggestion of a small hiatal hernia. There are right renal nonobstructive calculi versus renal vascular calcifications. CT/CTA Chest W/WO Contrast IMPRESSION: No demonstrated pulmonary embolism. There are moderate bilateral pleural effusions. There are emphysematous changes. There are enlarged mediastinal and hilar lymph nodes. Electronically Signed: Sangeetha Prieto MD at 14:21 EDT , Service support ,
[2018-01-07 11:04] VITALS: BP 157/73; PULSE 74; RESP 18; O2SAT 98
[2018-01-07] MEDS: Aspirin 325 MG Tablet PO (11:04)
[2018-01-07 12:05] VITALS: BP 160/71; PULSE 74; RESP 18; O2SAT 98
--- NOTE | 2018-01-07 12:32 | ED.DEP ---
ED Disposition - Plan for ED Patient: Disposition: Home or Assisted Living Chief Complaint: Shortness of Breath Instructions: ED CHF General, ED Apnea Sleep Obstructive Referrals: Jono Harrington Chi, MD [Primary Care Provider] - 01/10/18 Additional Instructions: restart Lasix as discussed
[2018-01-07 12:45] VITALS: BP 150/62; PULSE 74; RESP 18; O2SAT 97
== END 2018-01-07 13:04 | disposition home or self-care (01) ==
PROVIDERS: Emergency Provider Emergency Medicine; Family Provider Family Medicine Geriatric Medicine; PCP Family Medicine Geriatric Medicine
DX: I11.0 Hypertensive heart disease with heart failure (principal); I50.9 Heart failure, unspecified; R79.89 Other specified abnormal findings of blood chemistry; G47.30 Sleep apnea, unspecified; I25.10 Atherosclerotic heart disease of native coronary artery without angina pectoris; I48.91 Unspecified atrial fibrillation; I49.5 Sick sinus syndrome; Z79.82 Long term (current) use of aspirin; Z79.899 Other long term (current) drug therapy; Z87.891 Personal history of nicotine dependence
CPT/HCPCS: 71046; 71275; 80048; 80162; 83880; 84484; 85025; 93005; 99284; Q9967; A4216

== ENCOUNTER → 2018-01-31 14:32 | Outpatient (CLI) | payer MEDICARE, OTHER, SELFPAY ==
[2018-01-31 16:17] LABS: Free T3 3.1 pg/mL (2.18-3.98); Thyroid Stim Hormone (TSH) 1.26 uIU/mL (0.358-3.74)
== END ==
PROVIDERS: Family Provider Family Medicine Geriatric Medicine; PCP Family Medicine Geriatric Medicine; Referring Provider Nurse Practitioner; Visit Provider Nurse Practitioner
DX: I50.9 Heart failure, unspecified (principal); E05.90 Thyrotoxicosis, unspecified without thyrotoxic crisis or storm
CPT/HCPCS: 36415; 84439; 84443; 84481

== ENCOUNTER → 2018-04-12 09:51 | Outpatient (CLI) | payer MEDICARE, OTHER, SELFPAY ==
[2018-01-31 13:35] VITALS: BMI 22.5
[2018-04-12 13:27] LABS: Absolute Lymphocyte Count 1.67 X10^3/ul (0.83-4.51); Basophil# 0.04 X10^3/uL; Basophil% 0.7 % (0-1); Eosinophil# 0.13 X10^3/uL; Eosinophils% 2.3 % (0-5); Hematocrit 39.7 % (40-54); Hemoglobin 12.9 g/dl (13.0-16.5); Lymphocyte # 1.67 X10^3/ul (4.0); Lymphocyte % 29.8 % (19-41); Mean Corp Hgb Conc 32.5 g/gl (32-36); Mean Corpuscular Hgb 30.7 pg (27.0-32.0); Mean Corpuscular Volume 94.5 fL (80-94); Mean Platelet Vol. 10.7 fl (6.2-12.0); Monocyte# 0.78 X10^3/uL; Monocyte% 13.9 % (0-10); Neutrophil # 2.98 X10^3/uL (2.7-7.7); Neutrophil % 53.3 % (47-70); POSITIVE COUNT NO; POSITIVE DIFFERENTIAL NO; POSITIVE MORPHOLOGY NO; Platelet Count 199 K/mm3 (150-450); RBC Distribution Width CV 13.8 % (11.6-14.6); RBC Distribution Width SD 45.9 fl (35.1-43.9); White Blood Count 5.6 K/mm3 (4.4-11.0)
[2018-04-12 14:02] LABS: ALB/GLOB Ratio 1.1 RATIO (0.9-2.4); AST(SGOT) 24 U/L (15-37); Alanine Aminotransfer ALT/SGPT 23 U/L (16-61); Albumin, Serum 3.5 g/dL (3.2-5.0); Alkaline Phosphatase 70 U/L (45-117); Anion Gap 11 (5-15); BUN 18 mg/dL (7-18); BUN/Creat Ratio 15.8 RATIO (10-20); Calcium,Total 9.3 mg/dL (8.5-10.1); Chloride 109 mmol/L (98-107); Creatinine, Serum 1.14 mg/dL (0.70-1.30); EST Glomerular Filtration Rate 65 mL/min (>60); Est Glom Filt Rate - Afr Amer 79 mL/min (>60); Globulin 3.1 g/dL (2.2-4.2); Glucose 89 mg/dL (74-106); Potassium 4.3 mmol/L (3.5-5.1); Protein, Total 6.6 g/dL (6.4-8.2); Sodium Level 146 mmol/L (136-145); Thyroid Stim Hormone (TSH) 0.02 uIU/mL (0.358-3.74)
--- OUTSIDE RECORDS SUMMARY | 2018-07-14 18:23 | XMS RPT_ITS ---
:1935 Author Organization OHIP Support Name Relationship Address Phone MIGUEL Darshan INMAN Unavailable [address] + [place] [address] R Unavailable Unavailable Unavailable RIVERA, D STORM Unavailable [address] + [place] [address] R Unavailable Unavailable Unavailable MIGUEL D STORM Unavailable [address] + [place] [address] R Unavailable Unavailable Unavailable MIGUEL, D STORM Unavailable [address] + [place] [address] R Unavailable Unavailable Unavailable MIGUEL, D STORM Unavailable [address] + [place] [address] R Unavailable Unavailable Unavailable MIGUEL D STORM Unavailable [address] + [place] [address] R Unavailable Unavailable Unavailable MIGUEL D STORM Unavailable Unavailable + [place] [address] R Unavailable Unavailable Unavailable MIGUEL D STORM Unavailable Unavailable + [place] [address] R Unavailable Unavailable Unavailable MIGUEL D STORM Unavailable . + [place] [address] R Unavailable Unavailable Unavailable MIGUEL D STORM Unavailable . + [place] [address] R Unavailable Unavailable Unavailable MIGUEL D STORM Unavailable Unavailable + [place] [address] R Unavailable Unavailable Unavailable MIGUEL D STORM Unavailable Unavailable + [place] [address] R Unavailable Unavailable Unavailable MIGUEL D STORM Unavailable Unavailable + [place] [address] R Unavailable Unavailable Unavailable MIGUEL D STORM Unavailable Unavailable + [place] [address] R Unavailable Unavailable Unavailable MIGUEL D STORM Unavailable Unavailable + [place] [address] R Unavailable Unavailable Unavailable MIGUEL D STORM Unavailable Unavailable + [place] [address] R Unavailable Unavailable Unavailable RIVERA, D STORM Unavailable Unavailable + [place] [address] R Unavailable Unavailable Unavailable RIVERA, D STORM Unavailable Unavailable + [place] [address] R Unavailable Unavailable Unavailable RIVERA, D STORM Unavailable Unavailable + [place] [address] R Unavailable Unavailable Unavailable RIVERA, D STORM Unavailable Unavailable + [place] [address] R Unavailable Unavailable Unavailable RIVERA, D STORM Unavailable Unavailable + [place] [address] R Unavailable Unavailable Unavailable RIVERA, D STORM Unavailable Unavailable + [place] [address] R Unavailable Unavailable Unavailable RIVERA, D STORM Unavailable Unavailable + [place] [address] R Unavailable Unavailable Unavailable RIVERA, D STORM Unavailable [address] + [place] [address] R Unavailable Unavailable Unavailable RIVERA, D STORM Unavailable Unavailable + R Unavailable Unavailable Unavailable RIVERA, D STORM Unavailable . + [place] [address] R Unavailable Unavailable Unavailable RIVERA, D STORM Unavailable Unavailable + [place] [address] R Unavailable Unavailable Unavailable RIVERA, D STORM Unavailable . + [place] [address] R Unavailable Unavailable Unavailable RIVERA, D STORM Unavailable . + [place] [address] R Unavailable Unavailable Unavailable RIVERA, D STORM Unavailable Unavailable + [place] [address] R Unavailable Unavailable Unavailable RIVERA, D STORM Unavailable Unavailable + [place] [address] R Unavailable Unavailable Unavailable RIVERA, D STORM Unavailable . + [place] [address] R Unavailable Unavailable Unavailable RIVERA, D STORM Unavailable . + [place] [address] R Unavailable Unavailable Unavailable RIVERA, D STORM Unavailable . + [place] [address] R Unavailable Unavailable Unavailable RIVERA, D STORM Unavailable . + [place] [address] R Unavailable Unavailable Unavailable RIVERA, D STORM Unavailable . + [place] [address] R Unavailable Unavailable Unavailable Darshan RIVERA Unavailable . + [place] [address] R Unavailable Unavailable Unavailable Darshan RIVERA Unavailable Unavailable + R Unavailable Unavailable Unavailable Darshan RIVERA Unavailable Unavailable + R Unavailable Unavailable Unavailable Darshan RIVERA Unavailable Unavailable + R Unavailable Unavailable Unavailable Darshan RIVERA Unavailable Unavailable + R Unavailable Unavailable Unavailable Darshan RIVERA Unavailable Unavailable + R Unavailable Unavailable Unavailable Darshan RIVERA Unavailable Unavailable + R Unavailable Unavailable Unavailable Darshan RIVERA Unavailable [place] + [place] R Unavailable Unavailable Unavailable Care Team Providers Name Role Phone Len, Jono Chi Attending Unavailable Len, Jono Chi Primary Care Unavailable Ashelfah, Ghasem Admitting Unavailable [place], Desmond Attending Unavailable Len, Jono Chi Primary Care Unavailable Austyn, Desmond Consulting Unavailable Paintsil, [place] Consulting Unavailable Ashelfah, Ghasem Admitting Unavailable [place], Desmond Attending Unavailable Len, Jono Chi Primary Care Unavailable Austyn, Desmond Consulting Unavailable Paintsil, [place] Consulting Unavailable Ashelfah, Ghasem Admitting Unavailable Paintsil, [place] Attending Unavailable Len, Jono Chi Primary Care Unavailable Austyn, Desmond Consulting Unavailable Paintsil, [place] Consulting Unavailable ShookCamryn PLASTICS SEASONER OPERATOR-C Attending Unavailable ShookCamryn PLASTICS SEASONER OPERATOR-C Referring Unavailable Len, Jono Chi Primary Care Unavailable ShookCamryn PLASTICS SEASONER OPERATOR-C Attending Unavailable Len, Jono Chi Referring Unavailable Len, Jono Chi Primary Care Unavailable Trice Gaming Attending Unavailable Len, Jono Chi Referring Unavailable Len, Jono Chi Primary Care Unavailable Len, Jono Chi Primary Care Unavailable Jimbo Catalan Attending Unavailable Trice Gaming Attending Unavailable Len, Jono Chi Referring Unavailable Len, Jono Chi Primary Care Unavailable Paintsil, [place] Attending Unavailable Paintsil, [place] Referring Unavailable Len, Jono Chi Primary Care Unavailable Yannick Bishop Attending Unavailable Len, Jono Chi Referring Unavailable Len, Jono Chi Primary Care Unavailable Len, Jono Chi Attending Unavailable Len, Jono Chi Primary Care Unavailable Len, Jono Chi Referring Unavailable Camryn Zayas PLASTICS SEASONER OPERATOR-C Attending Unavailable Len, Jono Chi Referring Unavailable ShookCamryn PLASTICS SEASONER OPERATOR-C Attending Unavailable Shook, Camryn J PLASTICS SEASONER OPERATOR-C Referring Unavailable Len, Jono Chi Primary Care Unavailable Len, Jono Chi Primary Care Unavailable Brisa Umana Attending Unavailable Ahmet, [place] Attending Unavailable Jopperi, Johnson Referring Unavailable Len, Jono Chi Attending Unavailable Len, Jono Chi Referring Unavailable Len, Jono Chi Primary Care Unavailable Jopperi, Johnson Admitting Unavailable Paintsil, [place] Attending Unavailable Len, Jono Chi Primary Care Unavailable Ahmet, Casey Consulting Unavailable Paintsil, [place] Consulting Unavailable Jopperi, Johnson Admitting Unavailable Esthelaispaligia Jerry Attending Unavailable Len, Jono Chi Primary Care Unavailable Ahmet, Casey Consulting Unavailable Paintsil, [place] Consulting Unavailable Jopperi, Johnson Admitting Unavailable Moodispaligia Jerry Attending Unavailable Len, Jono Chi Primary Care Unavailable Ahmet, Casey Consulting Unavailable Paintsil, [place] Consulting Unavailable Jopperi, Johnson Admitting Unavailable Paintsil, [place] Attending Unavailable Len, Jono Chi Primary Care Unavailable Ahmet, [place] Consulting Unavailable Paintsil, [place] Consulting Unavailable Jopperi, Johnson Admitting Unavailable Len, Jono Chi Primary Care Unavailable Ahmet, Casey Consulting Unavailable Paintsil, [place] Attending Unavailable Paintsil, [place] Consulting Unavailable Jopperi, Johnson Admitting Unavailable Moodispatria Jerry Attending Unavailable Len, Jono Chi Primary Care Unavailable Ahmet, [place] Consulting Unavailable Paintsil, [place] Consulting Unavailable Jopperi, Johnson Admitting Unavailable Moodmalloriepaligia Jerry Attending Unavailable Len, Jono Chi Primary Care Unavailable Ahmet, Casey Consulting Unavailable Jopperi, Johnson Consulting Unavailable Jopperi, Johnson Attending Unavailable Jopperi, Johnson Admitting Unavailable Len, Jono Chi Primary Care Unavailable Ahmet, [place] Consulting Unavailable Jopperi, Johnson Consulting Unavailable Jopperi, Johnson Admitting Unavailable Len, Jono Chi Primary Care Unavailable Jopperi, Johnson Consulting Unavailable Jopperi, Johnson Attending Unavailable Len, Jono Chi Primary Care Unavailable Jopperi, Johnson Admitting Unavailable Ahmet, Casey Consulting Unavailable Paintsil, [place] Attending Unavailable rTice Gaming Attending Unavailable Len, Jono Chi Referring Unavailable Len, Jono Chi Primary Care Unavailable Jeannie Sepulveda Attending Unavailable Len, Jono Chi Primary Care Unavailable Jeannie Sepulveda Referring Unavailable Daxa Madsion Attending Unavailable Len, Jono Chi Referring Unavailable Amy Fontenot Attending Unavailable RayaokCamryn PLASTICS SEASONER OPERATOR-C Attending Unavailable ShookCamryn PLASTICS SEASONER OPERATOR-C Referring Unavailable Len, Jono Chi Primary Care Unavailable ShookCamryn PLASTICS SEASONER OPERATOR-C Attending Unavailable Len, Jono Chi Primary Care Unavailable ShookCamryn PLASTICS SEASONER OPERATOR-C Referring Unavailable Shook, Camryn Turk PLASTICS SEASONER OPERATOR-C Attending Unavailable Len, Jono Chi Referring Unavailable Len, Jono Chi Primary Care Unavailable ShookCamryn PLASTICS SEASONER OPERATOR-C Attending Unavailable Shook, Camryn Turk PLASTICS SEASONER OPERATOR-C Referring Unavailable Len, Jono Chi Primary Care Unavailable Jerry Jeffers Consulting Unavailable Daxa Madison Attending Unavailable Len, Jono Chi Referring Unavailable Len, Jono Chi Primary Care Unavailable Ashelfah, Ghasem Admitting Unavailable Paintsil, [place] Attending Unavailable Len, Jono Chi Primary Care Unavailable Austyn, Desmond Consulting Unavailable Paintsil, [place] Consulting Unavailable Trice Gaming Attending Unavailable Len, Jono Chi Referring Unavailable Ashelfah, Ghasem Admitting Unavailable Ashelfah, Ghasem Attending Unavailable Len, Jono Chi Primary Care Unavailable Ashelfah, Ghasem Consulting Unavailable Len, Jono Chi Primary Care Unavailable Ashelfah, Ghasem Admitting Unavailable Austyn, Desmond Consulting Unavailable Paintsil, [place] Attending Unavailable Len, Jono Chi Primary Care Unavailable Brisa Umana Attending Unavailable Daxa Madison Attending Unavailable Len, Jono Chi Referring Unavailable Daxa [place] Attending Unavailable Len, Jono Chi Referring Unavailable Jopperi, Johnson Admitting Unavailable Len, Jono Chi Primary Care Unavailable Ahmet, Casey Consulting Unavailable Jopperi, Ojhnson Attending Unavailable Joppmerlene, Johnson Consulting Unavailable PROBLEMS PROBLEMS DATE TYPE CONDITION / CODE ATTENDING STATUS SOURCE 05/11/2018 Unknown Z95.0 - Presence Daxa [place] Active [facility] pacemaker / Hospital Z95.0(ICD-10) Repository 05/11/2018 Unknown I49.5 - Sick sinus Daxa Madison Active [facility] syndrome / Community I49.5(ICD-10) Hospital Repository 02/09/2018 Unknown I50.9 - Heart Daxa [place] Active [facility] failure, Community unspecified / Hospital I50.9(ICD-10) Repository 02/09/2018 Unknown I48.2 - Chronic Daxa Madison Active [facility] atrial Community fibrillation / Hospital I48.2(ICD-10) Repository 01/31/2018 Unknown E05.90 - Camryn Zayas Active [facility] Thyrotoxicosis, PLASTICS SEASONER OPERATOR-C Community unspecified Hospital without thyrotoxic Repository crisis or storm / E05.90(ICD-10) 01/05/2018 Unknown N28.1 - Cyst of Len, Jono Chi Active [facility] kidney, acquired / Community N28.1(ICD-10) Hospital Repository 01/04/2018 Unknown R10.9 - Len, Jono Chi Active [facility] Unspecified Community abdominal pain / Hospital R10.9(ICD-10) Repository 11/05/2017 Unknown R31.0 - Gross Derick, Jeannie Active [facility] hematuria / M Community R31.0(ICD-10) Hospital Repository 11/04/2017 Unknown I48.91 - Daxa [place] Active [facility] Unspecified atrial Community fibrillation / Hospital I48.91(ICD-10) Repository 09/13/2017 Unknown 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, PLASTICS SEASONER OPERATOR-C Community unspecified / Hospital E07.9(ICD-10) Repository 09/13/2017 Unknown K56.600 - Partial Camryn Zayas Active [facility] intestinal PLASTICS SEASONER OPERATOR-C Community obstruction, Hospital unspecified as to Repository cause / K56.600(ICD-10) 06/07/2017 Unknown S22.32XA - Brisa Umana Active [place] Fracture of one Community rib, left side, Hospital initial encounter Repository for closed fracture / S22.32XA(ICD-10) PROCEDURES PROCEDURES No Procedure Records FoundRESULTS RESULTS PACEMAKER CHECK Observed: 05/10/2018 Status: F Source: [place] 1:15 PM [facility] REPOSITORY [facility] [address] [place], [place] [address]. [address] [place] [address] Pacemaker Check Date of Service: 05/10/18 1153 MR#: [id number] Acct: [id number] Name: SHANTELL RIVERA Rep #: [id number] : 1935 From: Daxa Madison Age/Sex: 82/M Location: [facility] Status: Signed Billing Codes PM Device Codes: PM Dev Prog Eval, Dual 05/10/18 1154 <Electronically signed by Daxa Madison > Date Daxa Madison 05/10/18 1315<Electronically signed by Jerry Jeffers MD> Cosigner Signature: Date (if applicable) Jerry Jeffers MD CC: CARDIOLOGY VISIT Observed: 05/10/2018 Status: F Source: [place] REPORT 11:50 AM [facility] REPOSIT[facility] [address] [place], [place] [address] OFFICE VISIT Date of Service: 05/10/18 MR#: [id number] Acct: [id number] Name: SHANTELL RIVERA Rep #: [id number] : 1935 Provider: [employer] Age/Sex: 82/M Location: [facility] Status: Signed HPI HPI Chief Complaint: Shortness of breath Details: SHANTELL RIVERA, is a 82 M who presents to the office today for a cardiovascular follow-up. He has a history of coronary artery disease with bypass surgery and subsequent angioplasty and stenting of his LAD. He also has a history of paroxysmal atrial fibrillation/flutter with ablation and AV sequential pacemaker placed. He also has a history of orthostatic hypotension. Pt does have some edema today. His weight is up from his last OV. He does not have any worsening SOB. He does not have any orthopnea. He does not have any chest pain/heaviness/tightness. He does not have any lightheadedness/dizziness. Intake Vital Signs05/10/18 Height 5 ft 8 in 05/10/18 Weight: 156 lb 05/10/18 Body Mass Index (BMI) 23.7 05/10/18 Blood Pressure 118/48 L Intake Visit Reasons: 6 m fu. MAYO @1030 Stacker Required: No Accompanied by: None Is patient in pain?: No Allergies No Known Allergies Allergy (Verified 05/10/18 11:09) Medications Aspirin [Aspirin, Baby] 81 mg PO DAILY@0800 #0 tab.chew 11/26/14 [Rx Confirmed 05/10/18] Ergocalciferol [Vitamin D] 50,000 unit PO QMONTH #0 cap 11/26/14 [Rx Confirmed 05/10/18] Finasteride [Proscar] 5 mg PO DAILY #30 tab 11/26/14 [Rx Confirmed 05/10/18] Nitroglycerin [Nitrostat] 0.4 mg SUBLINGUAL Q5M PRN #1 bottle 11/26/14 [Rx Confirmed 05/10/18] Omeprazole [Prilosec] 20 mg PO DAILY 02/19/15 [History Confirmed 05/10/18] Rosuvastatin Calcium [Crestor] 40 mg PO DAILY 02/19/15 [History Confirmed 05/10/18] multivitamin tablet 1 tab PO QAM 04/08/17 [History Confirmed 05/10/18] Calcium Phosphate Trib/Vit D3 [Citracal + D3 Gummies] 1 ea PO DAILY 07/29/17 [History Confirmed 05/10/18] Tamsulosin HCl [Flomax] 0.4 mg PO DAILY 07/29/17 [History Confirmed 05/10/18] Digoxin [Lanoxin] 250 mcg PO DAILY #30 tab 12/10/17 [Rx Confirmed 05/10/18] Metoprolol(XL)Succ [Toprol Xl (Beta Seth)] 12.5 mg PO BID #60 tab 12/10/17 [Rx Confirmed 05/10/18] cyanocobalamin (vitamin B-12) 2,500 mcg tablet 2,500 mcg PO DAILY 01/31/18 [History Confirmed 05/10/18] furosemide 40 mg tablet 40 mg PO .COMPLEX #30 tab 05/10/18 [Rx Confirmed 05/10/18] levothyroxine 50 mcg tablet 50 mcg PO DAILY 05/10/18 [History Confirmed 05/10/18] mirtazapine 7.5 mg tablet PO 30 Days #30 tab 05/10/18 [History Confirmed 05/10/18] Ejection fraction %: 55 to 59 PFSH Medical History Coronary artery disease (Chronic) Hypertension (Chronic) Afib (Chronic) Cardiac pacemaker (Chronic) Afib (Acute) Anemia (Acute) Atrial flutter (Acute) CAD (coronary artery disease) (Acute) CHF (congestive heart failure) (Acute) Cardiomyopathy (Acute) Eyelid retraction unspecified eye, unspecified lid (Acute) Hyperlipidemia (Acute) Myocardial infarction (Acute) Orthostatic hypotension (Acute) Partial bowel obstruction (Acute) Presence of combination internal cardiac defibrillator (ICD) and pacemaker (Acute) small fiber autonomic neuropathy (Acute) ureteral stent (Acute) HTN (hypertension) (Chronic) Surgical History 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) S/P PTCA (percutaneous transluminal coronary angioplasty) (Chronic) H/O hernia repair (Acute) H/O myringoplasty (Acute) Hx of CABG (Acute) Hx of cholecystectomy (Acute) Family History Father Lung cancer CVA (cerebral vascular accident) Brother Sudden cardiac Social History Smoking Status: Former smoker how long ago did patient quit smokin years alcohol intake: never substance use type: does not use caffeine: No ROS Const Const: Negative for weakness, fatigue, fever(s) or headache(s) Eyes Eyes: Negative for blind spots, loss of peripheral vision or transient loss of vision ENT ENT: Negative for headache(s), dizziness, tinnitus or Nosebleed/epistaxis Cardio Chest Pain: No Palpitations: No Edema: Bilateral Muscle aches with walking: None Resp Respiratory: Negative for SOB with activity, SOB at rest, SOB orthopnea\SOB lying down or Cough GI GI: Negative nausea, vomiting, heartburn or vomiting blood/hematemesis : Negative for hematuria Musc Musc: Negative for muscle aches/ myalgia Neuro Neuro: Negative for weakness, headache(s), dizziness, near syncope, syncope, lightheadedness or orthostatic symptoms Parvez Hematologic/Lymphatic: Negative for easy bleeding Endo Endo: Negative for fatigue Cardiology Exam Const Appearance: cooperative, no acute distress and well developed Orientation: alert, awake and oriented x3 Head Head: normocephalic and atraumatic Mouth: moist mucous membranes Eyes General: appearance normal, both eyes and all related structures Conjunctivae: conjunctivae normal Pupils: PERRL EOM: EOM intact bilaterally Neck Neck: normal visual inspection, no lymphadenopathy and no JVD Carotids: Negative bruit Neck Mass: Negative Neck mass Chest Chest inspection: normal inspection of the chest, symmetric chest movement, midline sternotomy incision and Pacemaker/ICD Yes left pectoral incision Auscultation: Bilateral: Clear to Auscultation Cardio Palpation: normal PMI Rate: regular rate Rhythm: regular rhythm Heart sounds: S1 normal and S2 normal; negative rub, gallop or murmur GI GI: normal to inspection, soft, no hepatosplenomegaly and bowel sounds present; negative tender Neuro General: alert, awake, oriented x3, CN's II-XI intact bilaterally and moves all extremities Extremities Pulses: Normal: Right Posterior Tibial Pulse, Left Posterior Tibial Pulse, Right Radial Pulse, Left Radial Pulse Lower Extremity Edema: +2: Bilateral Psych Psychological: normal affect Assessment AND Plan 1. Chronic diastolic (congestive) heart failure I50.32 Plan Patient does have some lower extremity edema. His weight is up slightly since his last office visit. We will have him take Lasix 40 mg for 3 days. He was then instructed to only use it if he notes a weight gain or he has edema. We will follow-up with patient closely. 2. Chronic atrial fibrillation I48.2 Plan Patient's rate is controlled. He is not anticoagulated due to his history of falls. He will continue with his aspirin therapy. 3. Atherosclerosis of [place] coronary artery of [place] heart without angina pectoris I25.10 Plan Stable, from a cardiac standpoint patient does not have any symptoms of angina. We recommend that they continue with current aggressive medical management and risk factor modification. 4. Cardiac pacemaker Z95.0 Pacemaker implant June 2005; Pacemaker generator change 11/28/12; Plan Pacemaker is functioning appropriately. We will continue to monitor at routine scheduled pacemaker interrogations. 5. Pure hypercholesterolemia E78.00 Plan He will continue with his moderate intensity statin. This is being monitored by his primary care doctor. Plan Detail Other Medications New: furosemide (Lasix) 40 mg PO take one pill in the morning for the next 3 days starting chhaya rrow (05/11) then stop and otherwise as directed for swelling; 30 tabs 1RF Additional Comments Thank you for allowing us to participate in the patients plan of care, if you have any questions please do not hesitate to call. This note was generated using a voice recognition system and there may be incorrect words, spelling or punctuation that were not noted when reviewing the office note prior to saving. Follow Up 2 Months (MMM) Coding Level of Care Code Off vis,est,level 3 Diagnoses Chronic diastolic (congestive) heart failure I50.32 Chronic atrial fibrillation I48.2 Atherosclerosis of [place] coronary artery of [place] heart without angina pectoris I25.10 Coronary Disease-Associated Artery/Lesion type: [place] artery Cardiac pacemaker Z95.0 Pure hypercholesterolemia E78.00 Hyperlipidemia type: pure hypercholesterolemia Coding Level of Care Code Off vis,est,level 3 Diagnoses Chronic diastolic (congestive) heart failure I50.32 Chronic atrial fibrillation I48.2 Atherosclerosis of [place] coronary artery of [place] heart without angina pectoris I25.10 Coronary Disease-Associated Artery/Lesion type: [place] artery Cardiac pacemaker Z95.0 Pure hypercholesterolemia E78.00 Hyperlipidemia type: pure hypercholesterolemia Supplemental Info Supplemental Information Heart catheterization from November 2017 showed normal LVEDP, mild segmental LV systolic dysfunction with ejection fraction 50%, [place] multivessel coronary artery disease, ROMERO to LAD previously reported small, atretic, nonfunctional and not evaluated during examination, previous proximal LAD stent as patent, SVG to diagonal 1 as patent, calcified mitral valve annulus, mitral valve insufficiency grade 1 to grade 2, and compared to previous heart catheterization in January 2015 similar type changes. Medical therapy and risk factor modification was recommended. Echocardiogram from November 2017 showed normal LV size, estimated ejection fraction of 60%, unable to assess diastolic dysfunction due to arrhythmia, mildly enlarged left atrium, mild mitral valve insufficiency, mild focal aortic valve calcification, and when compared to previous study, the left ventricular systolic function is the same. Stress test from November 2017 was a mildly abnormal pharmacologic myocardial perfusion stress test with evidence of inferior basal infarct and mild sharon- infarct ischemia with a preserved ejection fraction 51%. Diagnostics Electrocardiogram 01/07/18 Pacemaker Check 02/08/18 Chest X-Ray 01/07/18 05/10/18 1150 <Electronically signed by Trice FUENTES> Date Trice Dumontignjudy Signature: Date (if applicable) CC: Jono Lamar MD CBC W/DIFF, AUTOMATED Collected: 04/12/2018 Status: F Source: [place] 10:19 AM [facility] REPOSIT[facility] TYPE CODE TESTS RESULT OUT OF RANGE REFERENCE UNITS LAB L100.1000 4.4-11.0 K/mm3 Normal WBC 5.6 LAB L100.1200 4.6-6.2 M/mm3 Low RBC 4.20 LAB L100.1300 13.0-16.5 g/dl Low HGB 12.9 LAB L100.1400 40-54 % Low HCT 39.7 LAB L100.1500 80-94 fL High MCV 94.5 LAB L100.1600 27.0-32.0 pg Normal MCH 30.7 LAB L100.1700 32-36 g/gl Normal MCHC 32.5 LAB L100.1810 11.6-14.6 % Normal RDW CV 13.8 LAB L100.1820 35.1-43.9 fl High RDW SD 45.9 LAB L100.1900 150-450 K/mm3 Normal PLT 199 LAB L100.2000 6.2-12.0 fl Normal MPV 10.7 LAB L100.2100 47-70 % Normal NEUT% 53.3 LAB L100.2200 19-41 % Normal LY% 29.8 LAB L100.2300 0-10 % High MONO% 13.9 LAB L100.2400 0-5 % Normal EO% 2.3 LAB L100.2500 0-1 % Normal BASO% 0.7 LAB L100.2550 0.0-0.9 % Normal IM GRAN % 0.000 Result Comment: IG% - Immature Granulocytes (promyelocytes, myelocytes and metamyelocytes) > 1% indicates that a LEFT SHIFT is Present. LAB L100.2620 2.0-7.7 X10 3/uL Normal Absolute Neut 3.0 LAB L100.2720 0.83-4.51 X10 3/ul Normal Absolute Lymph 1.67 Performed By: #### L100.0100 #### [facility] [address] [place], [address] VITAMIN D,25 HYDROXY Collected: 04/12/2018 Status: F Source: [place] 10:19 AM [facility] REPOSITORY TYPE CODE TESTS RESULT OUT OF RANGE REFERENCE UNITS LAB L506.1000 29.95-100.01 ng/mL Normal Vitamin D 57.0 25-OH Result Comment: Vitamin D 25(OH) Status Range Deficiency <20 ng/mL (50nmol/L) Insuffciency 20 - 30 ng/mL (50 - 75 nmol/L) Sufficiency 30 - 100 ng/mL (75 - 250 nmol/L) Toxicity >100 ng/mL (>250 nmol/L) Performed By: #### L506.1000 #### [facility] [address] [place], [address] COMPREHENSIVE METABOLIC Collected: 04/12/2018 Status: F Source: [facility] 10:19 AM [facility] REPOSITORY TYPE CODE TESTS RESULT OUT OF RANGE REFERENCE UNITS LAB L501.0100 74-106 mg/dL Normal GLU 89 Result Comment: Please note revised GLUCOSE reference range effective 2017. LAB L501.1000 7-18 mg/dL Normal BUN 18 LAB L501.1100 0.70-1.30 mg/dL Normal CREAT,SERUM 1.14 Result Comment: The validity of the calculated GFR AND GFRAA in patients over 70 years has not been determined. Clinical correlation is essential. LAB L501.1110 >60 mL/min Normal EST GFR 65 Result Comment: Non- GFR Calc LAB L501.1115 >60 mL/min Normal EST GFR - AA 79 Result Comment: GFR Calc LAB L501.1300 10-20 RATIO Normal BUN/CRE 15.8 LAB L501.1500 6.4-8.2 g/dL T Normal PROT 6.6 LAB L501.1800 3.2-5.0 g/dL Normal ALB 3.5 LAB L501.1950 2.2-4.2 g/dL Normal GLOB 3.1 LAB L501.2000 0.9-2.4 RATIO Normal A/G 1.1 LAB L501.2200 8.5-10.1 mg/dL CA Normal 9.3 LAB L501.4100 15-37 U/L Normal AST 24 LAB L501.4305 45-117 U/L Normal ALK P 70 LAB L501.4405 16-61 U/L Normal ALT 23 LAB L501.4600 0.20-1.00 mg/dL T Normal BILI 0.40 LAB L501.5300 136-145 mmol/L High NA 146 LAB L501.5600 3.5-5.1 mmol/L K Normal 4.3 LAB L501.5900 98-107 mmol/L High CL 109 LAB L501.6100 21.0-32.0 mmol/L Normal CO2 26.0 LAB L501.6200 5-15 Normal GAP 11 Performed By: #### L500.4050, L501.9520 #### [facility] [address] [facility] [place], [address] THYROID STIM HORMONE Collected: 04/12/2018 Status: F Source: [facility] 10:19 AM [facility] REPOSITORY TYPE CODE TESTS RESULT OUT OF RANGE REFERENCE UNITS LAB L501.9520 0.358-3.74 uIU/mL Low TSH 0.02 Performed By: #### L500.4050, L501.9520 #### [facility] [address] [place], [address] PACEMAKER CHECK Observed: 02/08/2018 Status: F Source: [facility] 12:05 PM [facility] REPOSITORY [facility] [facility] [address] [address] [place] [address] Pacemaker Check Date of Service: 02/08/18 1108 MR#: [id number] Acct: [id number] Name: SHANTELL RIVERA Rep #: [id number] : 1935 From: Daxa Madison Age/Sex: 82/M Location: [facility] Status: Signed Billing Codes PM Device Codes: PM Dev Prog Eval, Dual 02/08/18 1114 <Electronically signed by Daxa Madison > Date Daxa Los 02/08/18 1205<Electronically signed by Jerry Jeffers MD> Cosigner Signature: Date (if applicable) Jerry Jeffers MD CC: OFFICE VISIT REPORT Observed: 02/01/2018 Status: F Source: [facility] 4:57 AM [facility] [address] [facility] [facility] [place] [address] OFFICE VISIT Date of Service: 01/31/18 MR#: [id number] Acct: [id number] Patient: SHANTELL RIVERA Rep #: [id number] : 1935 Provider: Camryn Zayas NP Age/Sex: 82/M Location: [facility] Status: Signed Intake Vital Signs01/31/18 Height 5 ft 8 in 01/31/18 Weight: 148 lb 6 oz 01/31/18 Body Mass Index (BMI) 22.5 01/31/18 Blood Pressure 110/63 01/31/18 Blood Pressure Location Lt popliteal 01/31/18 Blood Pressure Position Sitting Intake Visit Reasons: Thyroid dysfunction Stacker Required: No Accompanied by: Self Allergies No Known Allergies Allergy (Verified 01/31/18 13:29) Medications Aspirin [Aspirin, Baby] 81 mg PO DAILY@0800 #0 tab.chew 11/26/14 [Rx Confirmed 01/31/18] Ergocalciferol [Vitamin D] 50,000 unit PO QMONTH #0 cap 11/26/14 [Rx Confirmed 01/31/18] Finasteride [Proscar] 5 mg PO DAILY #30 tab 11/26/14 [Rx Confirmed 01/31/18] Folic Acid 1 mg PO DAILY@0800 #0 tab 11/26/14 [Rx Confirmed 01/31/18] Nitroglycerin [Nitrostat] 0.4 mg SUBLINGUAL Q5M PRN #1 bottle 11/26/14 [Rx Confirmed 01/31/18] Omeprazole [Prilosec] 20 mg PO DAILY 02/19/15 [History Confirmed 01/31/18] Rosuvastatin Calcium [Crestor] 40 mg PO DAILY 02/19/15 [History Confirmed 01/31/18] multivitamin tablet 1 tab PO QAM 04/08/17 [History Confirmed 01/31/18] Calcium Phosphate Trib/Vit D3 [Citracal + D3 Gummies] 1 ea PO DAILY 07/29/17 [History Confirmed 01/31/18] Tamsulosin HCl [Flomax] 0.4 mg PO DAILY 07/29/17 [History Confirmed 01/31/18] Digoxin [Lanoxin] 250 mcg PO DAILY #30 tab 12/10/17 [Rx Confirmed 01/31/18] Metoprolol(XL)Succ [Toprol Xl (Beta Seth)] 12.5 mg PO BID #60 tab 12/10/17 [Rx Confirmed 01/07/18] Midodrine HCl [Proamatine] 5 mg PO TID #90 tab 12/10/17 [Rx Confirmed 01/31/18] Acetaminophen [Tylenol] 650 mg PO TID 01/07/18 [History Confirmed 01/31/18] Mirabegron [Myrbetriq] 25 mg PO DAILY 01/07/18 [History Confirmed 01/07/18] methimazole 5 mg tablet 5 mg PO .COMPLEX #8 tab 01/13/18 [Rx Confirmed 01/31/18] cyanocobalamin (vitamin B-12) 2,500 mcg tablet 2,500 mcg PO DAILY 01/31/18 [History Confirmed 01/31/18] vitamins-lipotropics 200 mg-100 mg tablet tab PO tab 01/31/18 [History Confirmed 01/31/18] [facility] Medical History Coronary artery disease (Chronic) Hypertension (Chronic) Afib (Chronic) Cardiac pacemaker (Chronic) Afib (Acute) Anemia (Acute) Atrial flutter (Acute) CAD (coronary artery disease) (Acute) CHF (congestive heart failure) (Acute) Cardiomyopathy (Acute) Eyelid retraction unspecified eye, unspecified lid (Acute) Hyperlipidemia (Acute) Myocardial infarction (Acute) Orthostatic hypotension (Acute) Partial bowel obstruction (Acute) Presence of combination internal cardiac defibrillator (ICD) and pacemaker (Acute) small fiber autonomic neuropathy (Acute) ureteral stent (Acute) HTN (hypertension) (Chronic) Surgical History 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 He is currently on tapazole 5mg twice weekly. He denies sore throat or fever. Reports he is taking as directed. He does complain of tiredness but he states it is same as before starting medication. Recently has been seen in ER and by cardiology and his PCP for complaints of SOB, loss of appetite, nausea. Has had numerous tests done. Reports he does have other appointments yet. Severity, modifying factors, context, and associated signs and symptoms are as follows: Thyroid pain: No Energy: Reduced Sleep: Not awakened refreshed Temp: No intolerance GI: Normal bowel Weight: Flucuates Eyes: No change in vision Memory: unchanged Diaphoresis: Not significant Skin: Dry Hair : Unchanged Neuro: No numbness, tingling or tremors At time of visit: -Pt denies symptoms of hypertensive emergency (CP,SOB,LAZO, or blurred vision) and hypotension(dizziness or lightheadedness) -Pt denies symptoms of hypoglycemia ( sweaty, confusion, anxiety, tremor, hunger, palpitations) and hyperglycemia ( polydipsia, polyuria) -Pt denies potential medication adverse effect. Does have hx of SOB with exertion Has pacemaker Exam Const General: healthy appearing, comfortable, well groomed Nutritional Appearance: average body habitus Orientation: oriented x3 HENMT Head: normal to inspection, atraumatic Ears: external ears normal Nose: no nasal discharge Mouth: oral mucosae normal, moist mucous membranes Eyes General: appearance normal, both eyes and all related structures Conjunctivae: conjunctivae normal Sclera: sclerae normal Pupils: PERRL Neck Neck: normal visual inspection Neck mass: small nodule right lobe. Chest Chest palpation AND inspection: deferred Resp Effort AND Inspection: normal respiratory effort, symmetric chest movement, able to speak in complete sentences Auscultation: Bilateral: Clear to Auscultation Cardio Rate: regular rate Rhythm: regular rhythm Heart Sounds: S1 normal, S2 normal GI Inspection: normal to inspection Auscultation: normal bowel sounds Skin General: no rashes or lesions noted Wounds: no wounds Neuro General: moves all extremities Cognition: normal cognition Gait: normal gait, slow Extrem General: normal to inspection, Psych Mental Status: mental status grossly normal Affect: normal affect Speech and Movement: speech and movement normal Attitude: cooperative Thought Process: normal Judgment: judgment good ROS Const Constitutional: Positive for fatigue and change in appetite; no anorexia, body ache, chills, fever(s), frequent falls, decreased energy, malaise, night sweats, weakness, weight change, sleep problems, abnormal sleep pattern, other, headache(s), snoring or excessive sweating Eyes Eyes: No blurry vision, change in vision, double vision, discharge, dry eyes, bulging eyes, floaters, visual disturbances, eye pain, light sensitivity, spots in vision, tunnel vision or other ENT ENT: No abnormal hearing, ear pain, ear discharge, ear pressure, hearing loss, tinnitus, dizziness/vertigo, balance problems, nosebleed/epistaxis, nasal congestion, nasal obstruction, nose pain, sinus pressure, sinus pain, nasal discharge, post nasal drip, headache(s), facial pain, dental pain, dry mouth, bad breath, hoarseness, lip swelling, mouth lesions, mouth pain, sore throat, tongue swelling, throat swelling, other, difficulty swallowing or neck pain Resp Respiratory: Positive for shortness of breath; no cough, change in phlegm color, chest congestion, excessive phlegm production, hemoptysis, pain on inspiration, pain with cough, snoring, stridor, wheezing or other Cardio Cardiology: Positive for lightheadedness; no chest pain at rest, chest pain with exertion, leg pain with exertion, excessive sweating, shortness of breath, dyspnea on exertion, generalized swelling, irregular heart rhythm, orthopnea, radiating jaw, neck or arm pain, fast heart rate, slow heart rate, palpitations or other Gastro GI: Positive for nausea/dyspepsia and vomiting; no abdominal pain, belching, bloating, change in bowel habits, change in stool character, coffee ground emesis, constipation, cramping, diarrhea, heartburn, difficulty swallowing, feeling full early, excessive flatus, incontinent of stools, Vomiting blood/hematemesis, blood in stool, loose stools, Black,tarry stools, pain with swallowing or other Genitourinary Male: No difficulty urinating, burning urination, painful urination, urinary incontinence, urinary frequency, urinary urgency, urinary hesitancy, urinary retention, blood in urine, Frequent nighttime urination/ nocturia, post void dribbling, suprapubic fullness, side pain, sexual problems, genital lesions, genital itching, erectile dysfunction, penile discharge, difficulty with ejaculations, blood in semen, scrotal swelling, testicle lump, testicle pain or other Musc Musculoskeletal: No abnormal walking, joint pain, back pain, deformity, joint swelling, limited range of motion, loss of height, muscle cramps, muscle weakness, decreased muscle mass, body aches, neck pain, numbness, radiating pain into limb, stiffness, tingling or other Skin Skin: No acne, hair loss, change in hair, nail changes, boil, change in skin color, dry skin, redness, excessive hair growth, yellowing of the skin, lesions, itching, rash, skin pain, skin ulcer, sores, skin swelling, wounds or other Breast Breast: No other Neuro Neurology: No frequent falls, weakness, visual disturbances, abnormal hearing, headache(s), abnormal walking, numbness or tingling Psych Psychiatric: No abnormal sleep pattern, Positive for change in appetite Endo Endocrine: Positive for fatigue; no other or excessive sweating Aller/Imm Allergy/Immunologic: No lip swelling, tongue swelling, throat swelling, wheezing or itchy eyes Exam Musc Musculoskeletal: No muscle weakness Assessment AND Plan 1. Thyroid dysfunction E07.9 Plan Noted on medication sheet today that patient has levothyroxine on his medication sheet. Unsure when this was started and by whom. Will contact PCP regarding this.. Labs today. TSH done [place] normal range. Plan Detail Other Medications New: Coding Level of Care Code Off vis,est,level 3 Diagnoses Thyroid dysfunction E07.9 02/01/18 0457 <Electronically signed by Camryn TALLEY> Date Camryn Zayas NP-Jhoan Juliamananer Signature: Date (if applicable) CC: FREE T3 Collected: 01/31/2018 Status: F Source: [facility] 2:38 PM [facility] REPOSITORY TYPE CODE TESTS RESULT OUT OF RANGE REFERENCE UNITS LAB L501.27803 2.18-3.98 pg/mL Normal FREE T3 3.1 Performed By: #### L501.59724, L501.9520, L506.0400 #### [facility]. [place], [place], [address] THYROID STIM HORMONE Collected: 01/31/2018 Status: F Source: [facility] ([facility]) 2:38 PM [facility] REPOSITORY TYPE CODE TESTS RESULT OUT OF RANGE REFERENCE UNITS LAB L501.9520 0.358-3.74 uIU/mL Normal TSH 1.26 Performed By: #### L501.76667, L501.9520, L506.0400 #### [facility] [address] [place] [address]. [place], [address] T4 FREE DIRECT Collected: 01/31/2018 Status: F Source: [facility] 2:38 PM [facility] REPOSITORY TYPE CODE TESTS RESULT OUT OF RANGE REFERENCE UNITS LAB L506.0400 0.76-1.46 ng/dL Normal T4 FREE 1.20 DIRECT Performed By: #### L501.41881, L501.9520, L506.0400 #### [facility] [place], [address] 12 LEAD ELECTROCARDIOGRAM Observed: 01/10/2018 Status: F Source: [facility] 3:17 PM [facility] REPOSITORY [facility] Cardiovascular Services [address] [place] [address] 12 Lead EKG 01/07/18 1059 MR#: [id number] Acct: [id number] Name: SHANTELL RIVERA Rep #: [id number] : 1935 82 From: Casey Leo MD Attending Dr: Status: DEP ER Ordering Dr: Brisa Umana MD Date: 01/07/18 Location: ED Sex: M C Admitted: Test Reason : SOB REPEAT Blood Pressure : / mmHG Vent. Rate : 074 BPM Atrial Rate : 375 BPM P-R Int : 000 ms QRS Dur : 102 ms QT Int : 390 ms P-R-T Axes : 000 043 237 degrees QTc Int : 432 ms Atrial fibrillation with frequent ventricular-paced complexes ST AND T wave abnormality, consider inferior ischemia ST AND T wave abnormality, consider anterolateral ischemia Abnormal ECG Confirmed by CASEY LEO MD ([id number]), research editor JONATHAN RIVERA ([id number]) on 01/10/2018 3:16:51 PM Referred By: DANG Confirmed By:CASEY LEO MD 01/10/18 1516 Date Casey Leo MD CC: Brisa Umana MD; Jono Lamar MD Signed 12 LEAD ELECTROCARDIOGRAM Observed: 01/10/2018 Status: F Source: [place] 3:16 PM [facility] REPOSITORY [facility] Cardiovascular Services [address] [place] [address] 12 Lead EKG 01/07/18 0849 MR#: [id number] Acct: [id number] Name: SHANTELL RIVERA Rep #: [id number] : 1935 82 From: Casey Leo MD Attending Dr: Status: DEP ER Ordering Dr: Brisa Umana MD Date: 01/07/18 Location: ED Sex: M C Admitted: Test Reason : CP Blood Pressure : / mmHG Vent. Rate : 080 BPM Atrial Rate : 202 BPM P-R Int : 000 ms QRS Dur : 102 ms QT Int : 392 ms P-R-T Axes : 000 049 245 degrees QTc Int : 452 ms Atrial fibrillation with frequent ventricular-paced complexes ST AND T wave abnormality, consider inferior ischemia ST AND T wave abnormality, consider anterolateral ischemia Abnormal ECG Confirmed by CASEY LEO MD ([id number]), research editor JONATHAN RIVERA ([id number]) on 01/10/2018 3:16:25 PM Referred By: DANG Confirmed By:CASEY LEO MD 01/10/18 1516 Date Casey Leo MD CC: Brisa Umana MD; Jono Lamar MD Signed EMERGENCY DEPARTMENT Observed: 01/07/2018 Status: F Source: [place] SUMMARY 6:03 PM [facility] REPOSITORY [facility] Medical Records Department [address] [place] [address] Emergency Department Summary 01/07/18904 MR#: [id number] Acct: [id number] Name: SHANTELL RIVERA Rep #: [id number] : 1935 82 From: Brisa Umana MD PCP: Jono Lamar MD, Chi Status: DEP ER - ER Visit Summary Date of Service: 01/07/18 Chief Complaint: Shortness of breath and chest pain History of Present Illness: The patient is a 82 M reports chest pain and shortness of breath while lying in bed last night. He states pain started around midnight and persisted while he was lying in bed. It resolved around 7 AM after he got up and started moving around. He denies chest pain or shortness of breath at this time. He denies heartburn symptoms. He has not had cough. He states he has been to his doctor 3 times this week for similar. On review of records patient had a CAT scan and ultrasound of his abdomen this week. Patient did have a heart cath 1 month ago that looks unchanged compared to prior cath from 2015. Medical management is suggested. Physical Examination: Blood pressure is 05/19/1968, temperature 97.4, heart rate 76, respiratory rate 15, pulse ox 97% on room air. Patient sitting upright in bed no acute distress. He is alert and talkative. Heart is slightly irregular. Lung sounds are clear. Abdomen soft nontender. Lower exam examination reveals no significant tenderness or edema. Test Results: EKG is underlying A. fib with several paced beats with a ventricular rate of 80. He has anterior T inversions are unchanged when compared to prior. CBC was normal white count hemoglobin 12.9. Chemistry studies normal. Troponin is 0.516. BNP is 876. Digoxin is in therapeutic range. Two-view chest x-ray shows small bilateral pleural effusions with underlying atelectasis and/or scarring, worse in the left. CTA of the chest shows small bilateral pleural effusions. No PE. Emergency Department Course and Treatment: Patient was given aspirin. I spoke with Dr. Leo who reviewed his recent heart cath. His suspicion is that the troponin is elevated secondary to pressure from CHF. 2 hour repeat troponin is drawn and is already dropping. Patient is to restart his Lasix at 20 mg daily. While on the monitor here it was noted that the patient would snore and then hold his breath while sleeping. His oxygen saturations would drop and then he would wake up complaining of shortness of breath. I spoke with patient's primary care physician who will follow up on Wednesday and arrange sleep study as needed. Treatment Plan: [] Disposition: Discharge Impression: 1. CHF with elevated troponin 2. Sleep apnea This note was generated with [employer] dictation software. It may contain incorrect words, spelling, and punctuation that were not noted in review of the chart prior to signing ED Disposition - Plan for ED Patient: Chief Complaint: Shortness of Breath Referrals: Jono Lamar Chi, MD [Primary Care Provider] - What to do if you have Problems For any increased pain, shortness of breath, bleeding, nausea or vomiting, chest pain, or any unexpected problems, contact your Primary Care Provider. Call [facility] ([phone]) or report to the closest Emergency Room. Call 911 if necessary. 01/07/18 8843 <Electronically signed by Brisa Umana MD> Date Brisa Umana MD Cosigner Signature (If Indicated): Date CC: Jono Lamar MD DISCHARGE INSTRUCTION Observed: 01/07/2018 Status: F Source: [facility] 12:34 PM [facility] RE[facility]ITORY [facility] Medical Records Department [address] [place] [address] Discharge Instruction 01/07/18 1232 MR#: [id number] Acct: [id number] Name: SHANTELL RIVERA Rep #: [id number] : 1935 82 From: Brisa Umana MD PCP: Joon Lamar MD, Chi Status: REG ER ED Disposition - Plan for ED Patient: Disposition: Home or Assisted Living Chief Complaint: Shortness of Breath Instructions: ED CHF General, ED Apnea Sleep Obstructive Referrals: Jono Lamar Chi, MD [Primary Care Provider] - 01/10/18 Additional Instructions: restart Lasix as discussed What to do if you have Problems For any increased pain, shortness of breath, bleeding, nausea or vomiting, chest pain, or any unexpected problems, contact your Primary Care Provider. Call [facility] ([phone]) or report to the closest Emergency Room. Call 911 if necessary. 01/07/18 1234 <Electronically signed by Brisa Umana MD> Date Brisa Umana MD Cosigner Signature (If Indicated): Date CC: Jono Lamar MD CTA CHEST W/WO Observed: 01/07/2018 Status: F Source: [facility] CONTRAST 10:58 AM [facility] REPOSITORY [facility] Imaging Services [address] [place] [address] CTA Chest W/WO Contrast MR#: [id number] Acct: [id number] Name: SHANTELL RIVERA Rep #: [id number] : 1935 M 82 From: Sangeetha Prieto MD PCP: Jono Lamar MD, Chi Status: DEP ER Study: CTA Chest W/WO Contrast Date of Exam: 01/07/18 Exam# [id number] Ordering Dr: Brisa Umana MD STUDY: CTA CHEST REASON FOR EXAM: Male, 82 years old. SOB, chest pain x 1 month, worse now. Prior 2 vessel CABG, 4 stents, pacemaker. RADIATION DOSAGE (If Supplied By Facility): CTDIvol = ( 12.95 ) mGy, DLP = ( 607.54 ) mGycm TECHNIQUE: The examination was performed with the intravenous administration of 100mL ml of Isovue 370 contrast material. Post-processing of the angiographic images was performed, with multiplanar reformation and 3D reconstruction. Individualized dose optimization techniques were used for this CT. COMPARISON: X-ray December 05, 2017 FINDINGS: Normal enhancement of the main pulmonary artery and right and left pulmonary arteries. Normal enhancement of the bilateral peripheral pulmonary arteries. There is no demonstrated pulmonary embolism. There is atherosclerotic calcification of the aortic arch with tortuosity. Normal heart and pericardium. There are a few enlarged mediastinal and hilar lymph nodes. Normal visualized trachea and bronchi. There are moderate bilateral pleural effusions. There is bibasilar compressive atelectasis. There are emphysematous changes of the upper lungs. Normal chest wall structures. There are degenerative changes of thoracic spine. There are T12 and L1 compression fractures with partial bony fusion. There is suggestion of a small hiatal hernia. There are right renal nonobstructive calculi versus renal vascular calcifications. CT/CTA Chest W/WO Contrast IMPRESSION: No demonstrated pulmonary embolism. There are moderate bilateral pleural effusions. There are emphysematous changes. There are enlarged mediastinal and hilar lymph nodes. Electronically Signed: Sangeetha Prieto MD at 14:21 EDT , Service support , CC: Brisa Umana MD; Jono Lamar MD Tipple Operator: Signed TROPONIN-I Collected: 01/07/2018 Status: F Source: [facility] 10:54 AM [facility] REPOSITORY Order Comment: Comments: Should be drawn 2H after initial Troponin obtained TYPE CODE TESTS RESULT OUT OF RANGE REFERENCE UNITS LAB L501.4010 <0.045 ng/mL High 0.479 TROPONIN-I Result Comment: TROPONIN-I EXPECTED VALUES <0.045 Negative 0.045 - 0.590 Consistent with Cardiac Damage > OR = 0.600 Critical Value Not every elevated troponin is indicative of IL. These values should be used with clinical judgement in examining the patient's clinical picture for diagnosis. To establish a diagnosis of IL versus myocardial injury, there must be a demonstrated rise and/or fall in the troponin values, in addition to ischemic symptoms, EKG changes, new regional wall motion abnormality, and/or angiographical evidence. PLEASE NOTE: REFERENCE RANGES EDITED 17 Performed By: #### L501.4010 #### [facility] [address] [place], [address] CHEST PA AND LATERAL Observed: 01/07/2018 Status: F Source: [place] 9:03 AM [facility] REPOSITORY [facility] Imaging Services [address] [place] [address] Chest PA and Lateral MR#: [id number] Acct: [id number] Name: SHANTELL RIVERA Rep #: [id number] : 1935 M 82 From: Royer Pineda MD PCP: Len TABOR,[place] [employer] Status: REG ER Study: Chest PA and Lateral Date of Exam: 01/07/18 Exam# [id number] Ordering Dr: Brisa Umana MD STUDY: X-RAY CHEST REASON FOR EXAM: Male, 82 years old. Chest pain and shortness of breath. TECHNIQUE: PA and lateral views of the chest. COMPARISON: Comparison is made with prior examination dated December 05, 2017. FINDINGS: EKG electrodes are seen. Small bilateral pleural effusions with mild bibasilar atelectasis left worse than right. 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 A left-sided dual-chamber pacemaker is seen. Normal mediastinum and jostin. Normal visualized pulmonary arteries. There is atherosclerotic calcification of the aortic arch with tortuosity. There is demineralization of the osseous structures. Almost complete collapse of the T12 vertebra. Normal visualized ribs, clavicles, and shoulders. There is no demonstrated abnormality of the visualized soft tissue structures of the upper abdomen. RAD/Chest PA and Lateral IMPRESSION: Small bilateral pleural effusions with underlying basilar atelectasis and/or scarring worse on the left side. Electronically Signed: Royer Pineda MD at 9:52 EDT Tel [phone], Service support , CC: Brisa Umana MD; Jono Lamar MD Tipple Operator: Signed CBC W/DIFF, AUTOMATED Collected: 01/07/2018 Status: F Source: ANA 8:55 AM [facility] REPOSITORY TYPE CODE TESTS RESULT OUT OF RANGE REFERENCE UNITS LAB L100.1000 4.4-11.0 K/mm3 Normal WBC 10.2 LAB L100.1200 4.6-6.2 M/mm3 Low RBC 4.20 LAB L100.1300 13.0-16.5 g/dl Low HGB 12.9 LAB L100.1400 40-54 % Low HCT 38.5 LAB L100.1500 80-94 fL Normal MCV 91.7 LAB L100.1600 27.0-32.0 pg Normal MCH 30.7 LAB L100.1700 32-36 g/gl Normal MCHC 33.5 LAB L100.1810 11.6-14.6 % High RDW CV 15.9 LAB L100.1820 35.1-43.9 fl High RDW SD 53.3 LAB L100.1900 150-450 K/mm3 Normal PLT 191 LAB L100.2000 6.2-12.0 fl Normal MPV 9.9 LAB L100.2100 47-70 % High NEUT% 75.5 LAB L100.2200 19-41 % Low LY% 11.6 LAB L100.2300 0-10 % High MONO% 11.5 LAB L100.2400 0-5 % Normal EO% 1.1 LAB L100.2500 0-1 % Normal BASO% 0.2 LAB L100.2550 0.0-0.9 % Normal IM GRAN % 0.100 Result Comment: IG% - Immature Granulocytes (promyelocytes, myelocytes and metamyelocytes) > 1% indicates that a LEFT SHIFT is Present. LAB L100.2620 2.0-7.7 X10 3/uL Normal Absolute Neut 7.7 LAB L100.2720 0.83-4.51 X10 3/ul Normal Absolute Lymph 1.18 Performed By: #### L100.0100 #### [facility] [address] [place], [place], [address] BASIC METABOLIC Collected: 01/07/2018 Status: F Source: [place] PROFILE (BMP) 8:55 AM [facility] REPOSITORY TYPE CODE TESTS RESULT OUT OF RANGE REFERENCE UNITS LAB L501.0100 74-106 mg/dL Normal GLU 98 Result Comment: Please note revised GLUCOSE reference range effective 2017. LAB L501.1000 7-18 mg/dL High BUN 20 LAB L501.1100 0.70-1.30 mg/dL Normal CREAT,SERUM 1.06 Result Comment: The validity of the calculated GFR AND GFRAA in patients over 70 years has not been determined. Clinical correlation is essential. LAB L501.1110 >60 mL/min Normal EST GFR 71 Result Comment: Non- GFR Calc LAB L501.1115 >60 mL/min Normal EST GFR - AA 86 Result Comment: GFR Calc LAB L501.1255 ml/min Normal Estimated CRCL 52.88 LAB L501.1300 10-20 RATIO Normal BUN/CRE 18.9 LAB L501.2200 8.5-10 mg/dL Normal .1 CA 9.8 LAB L501.5300 136-14 mmol/L Normal 5 NA 145 LAB L501.5600 3.5-5. mmol/L Normal 1 K 3.5 LAB L501.5900 98-107 mmol/L High CL 109 LAB L501.6100 21.0-3 mmol/L Normal 2.0 CO2 28.0 LAB L501.6200 5-15 Normal GAP 8 Performed By: #### L500.2500, L501.4010 #### [facility] [address] [place], [address] TROPONIN-I Collected: 01/07/2018 Status: F Source: ANA 8:55 AM [facility] REPOSITORY TYPE CODE TESTS RESULT OUT OF RANGE REFERENCE UNITS LAB L501.4010 <0.045 ng/mL High 0.516 TROPONIN-I Result Comment: TROPONIN-I EXPECTED VALUES <0.045 Negative 0.045 - 0.590 Consistent with Cardiac Damage > OR = 0.600 Critical Value Not every elevated troponin is indicative of IL. These values should be used with clinical judgement in examining the patient's clinical picture for diagnosis. To establish a diagnosis of IL versus myocardial injury, there must be a demonstrated rise and/or fall in the troponin values, in addition to ischemic symptoms, EKG changes, new regional wall motion abnormality, and/or angiographical evidence. PLEASE NOTE: REFERENCE RANGES EDITED 17 Performed By: #### L500.2500, L501.4010 #### [facility] [address] [place], [address] BNP,B-TYPE NATRIURETIC Collected: 01/07/2018 Status: F Source: [place] PEPTIDE 8:55 AM [facility] REPOSITORY TYPE CODE TESTS RESULT OUT OF RANGE REFERENCE UNITS LAB L503.6620 0-100 pg/mL High B-TYPE 876.3 KATHERIN PEP Performed By: #### L503.6620 #### [facility] [address] [place], [address] DIGOXIN LEVEL Collected: 01/07/2018 Status: F Source: ANA 8:55 AM [facility] REPOSITORY TYPE CODE TESTS RESULT OUT OF RANGE REFERENCE UNITS LAB L501.7510 0.80-2.00 ng/mL Normal DIG 0.95 Performed By: #### L501.7510 #### [facility] [address] [place], [address] KIDNEY AND BLADDER Observed: 01/05/2018 Status: F Source: ANA 1:10 PM [facility] REPOSITORY [facility] Imaging Services [address] [place] [address] Kidney and Bladder MR#: [id number] Acct: [id number] Name: SHANTELL RIVERA Rep #: [id number] : 1935 M 82 From: Sanford Calderon MD PCP: Jono Lamar MD, Chi Status: REG CLI Study: Kidney and Bladder Date of Exam: 01/05/18 Exam# [id number] Ordering Dr: Jono Lamar MD STUDY: RENAL ULTRASOUND - COMPLETE REASON FOR EXAM: Male, 82 years old. Renal cyst TECHNIQUE: Ultrasound evaluation of the kidneys was performed with real-time and static millard-scale imaging. COMPARISON: None. FINDINGS: RIGHT KIDNEY: Normal location of the right kidney, which is normal in size. The right kidney measures 9.7 x 5.5 x 4.1 cm. There is a normal cortex of the right kidney. The renal cortex measures 1.2 cm. There is no right renal mass or cyst. There is a small nonobstructing calculus. There is no right hydronephrosis. DISTAL RIGHT URETER: There is non-visualization of the distal right ureter. There is no demonstrated right ureterovesical junction calculus. There is a visualized right ureteral jet. LEFT KIDNEY: Normal location of the left kidney, which is normal in size. The left kidney measures 10.7 x 5.2 x 5.1 cm. There is a normal cortex of the left kidney. The renal cortex measures 1.5 cm. There is a cyst measuring 6.6 x 6.4 x 4.2 cm. There are no left renal calculi. There is no left hydronephrosis. DISTAL LEFT URETER: There is non-visualization of the distal left ureter. There is no demonstrated left ureterovesical junction calculus. There is a visualized left ureteral jet. BLADDER: The distended urinary bladder has a volume of 54.9 ml. US/Kidney and Bladder IMPRESSION: Large left renal cyst. Probable nonobstructing right renal calculus. No evidence for renal obstruction Electronically Signed: Sanford Calderon MD at 23:14 EDT , Service support , CC: Jono Lamar MD Tipple Operator: Signed ABDOMEN/PELVIS WITH Observed: 01/04/2018 Status: F Source: [place] CONTRAST 2:18 PM [facility] REPOSITORY [facility] Imaging Services [address] [place] [address] Abdomen/Pelvis WITH Contrast MR#: [id number] Acct: [id number] Name: SHANTELL RIVERA Rep #: [id number] : 1935 M 82 From: Royer Pineda MD PCP: Jono Lamar MD, Chi Status: REG CLI Study: Abdomen/Pelvis WITH Contrast Date of Exam: 01/04/18 Exam# [id number] Ordering Dr: Jono Lamar MD STUDY: CT ABDOMEN AND PELVIS WITH CONTRAST REASON FOR EXAM: Male, 82 years old. Abdominal pain. History of kidney stones. RADIATION DOSAGE (If Supplied By Facility): CTDIvol = ( 19.25 ) mGy, DLP = ( 848.66 ) mGycm TECHNIQUE: Transaxial images were obtained from the dome of the diaphragm to the symphysis pubis with oral contrast. 100 ml of Isovue 300 contrast was administered. Sagittal and coronal images were reconstructed. Individualized dose optimization techniques were used for this CT. COMPARISON: Comparison is made with prior study dated July 29, 2017. FINDINGS: Small bilateral pleural effusions left greater than right. There is evidence of old left seventh eighth and ninth rib fractures. 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 Normal liver. There are surgical clips in the gallbladder fossa consistent with a prior cholecystectomy. Normal spleen. Normal pancreas. Normal bilateral adrenal glands. Multiple small nonobstructive right intrarenal calculi. The largest measures 4 mm. Tiny nonobstructive left intrarenal calculus. There is a 5.9 cm x 6.3 cm cyst arising from the lateral mid inferior aspect of the left kidney. There is a small hiatal hernia. Normal small intestine. There are multiple colonic diverticula consistent with diverticulosis. There is non-visualization of the appendix. There is diffuse atherosclerotic calcification of the abdominal aorta and its major visceral branches, without a demonstrated aneurysm. Normal inferior vena cava. Normal retroperitoneum. Normal urinary bladder. There are prostatic calcifications. No evidence of prior umbilical hernia repair with a mesh. There are diffuse degenerative changes of the visualized lumbar spine. Stable wedging of the T12 and L1 vertebrae. CT/Abdomen/Pelvis WITH Contrast IMPRESSION: Sigmoid diverticulosis. Nonobstructive bilateral intrarenal calculi. Stable left renal cyst. Small bilateral pleural effusions left greater than right. Electronically Signed: Royer Pineda MD at 15:44 EDT Tel [phone], Service support , CC: Jono Lamar MD Tipple Operator: Signed CBC W/DIFF, AUTOMATED Collected: 01/04/2018 Status: F Source: [place] 1:17 PM [facility] REPOSITORY TYPE CODE TESTS RESULT OUT OF RANGE REFERENCE UNITS LAB L100.1000 4.4-11.0 K/mm3 Normal WBC 6.3 LAB L100.1200 4.6-6.2 M/mm3 Low RBC 4.04 LAB L100.1300 13.0-16.5 g/dl Low HGB 12.1 LAB L100.1400 40-54 % Low HCT 37.7 LAB L100.1500 80-94 fL Normal MCV 93.3 LAB L100.1600 27.0-32.0 pg Normal MCH 30.0 LAB L100.1700 32-36 g/gl Normal MCHC 32.1 LAB L100.1810 11.6-14.6 % High RDW CV 15.8 LAB L100.1820 35.1-43.9 fl High RDW SD 53.9 LAB L100.1900 150-450 K/mm3 Normal PLT 184 LAB L100.2000 6.2-12.0 fl Normal MPV 10.8 LAB L100.2100 47-70 % Normal NEUT% 68.6 LAB L100.2200 19-41 % Low LY% 18.3 LAB L100.2300 0-10 % High MONO% 11.4 LAB L100.2400 0-5 % Normal EO% 1.4 LAB L100.2500 0-1 % Normal BASO% 0.3 LAB L100.2550 0.0-0.9 % Normal IM GRAN % 0.000 Result Comment: IG% - Immature Granulocytes (promyelocytes, myelocytes and metamyelocytes) > 1% indicates that a LEFT SHIFT is Present. LAB L100.2620 2.0-7.7 X10 3/uL Normal Absolute Neut 4.3 LAB L100.2720 0.83-4.51 X10 3/ul Normal Absolute Lymph 1.15 Performed By: #### L100.0100 #### [facility] [address] [place], [address] COMPREHENSIVE METABOLIC Collected: 01/04/2018 Status: F Source: [facility] 1:17 PM [facility] REPOSITORY TYPE CODE TESTS RESULT OUT OF RANGE REFERENCE UNITS LAB L501.0100 74-106 mg/dL Normal GLU 93 Result Comment: Please note revised GLUCOSE reference range effective 2017. LAB L501.1000 7-18 mg/dL Normal BUN 17 LAB L501.1100 0.70-1.30 mg/dL Normal CREAT,SERUM 1.08 Result Comment: The validity of the calculated GFR AND GFRAA in patients over 70 years has not been determined. Clinical correlation is essential. LAB L501.1110 >60 mL/min Normal EST GFR 70 Result Comment: Non- GFR Calc LAB L501.1115 >60 mL/min Normal EST GFR - AA 84 Result Comment: GFR Calc LAB L501.1300 10-20 RATIO Normal BUN/CRE 15.7 LAB L501.1500 6.4-8.2 g/dL T Normal PROT 6.6 LAB L501.1800 3.2-5.0 g/dL Normal ALB 3.6 LAB L501.1950 2.2-4.2 g/dL Normal GLOB 3.0 LAB L501.2000 0.9-2.4 RATIO Normal A/G 1.2 LAB L501.2200 8.5-10.1 mg/dL CA Normal 9.5 LAB L501.4100 15-37 U/L Normal AST 20 LAB L501.4305 45-117 U/L Normal ALK P 76 LAB L501.4405 16-61 U/L Normal ALT 18 LAB L501.4600 0.20-1.00 mg/dL T Normal BILI 0.60 LAB L501.5300 136-145 mmol/L NA Normal 145 LAB L501.5600 3.5-5.1 mmol/L K Normal 4.0 LAB L501.5900 98-107 mmol/L High CL 110 LAB L501.6100 21.0-32.0 mmol/L Normal CO2 24.0 LAB L501.6200 5-15 Normal GAP 11 Performed By: #### L500.4050, L501.2400, L501.2450 #### [facility] [address] [place], [address] AMYLASE Collected: 01/04/2018 Status: F Source: [place] 1:17 PM [facility] REPOSITORY TYPE CODE TESTS RESULT OUT OF RANGE REFERENCE UNITS LAB L501.2400 25-115 U/L Normal HUSEYIN 40 Performed By: #### L500.4050, L501.2400, L501.2450 #### [facility] [address] [place], [address] LIPASE Collected: 01/04/2018 Status: F Source: [place] 1:17 PM [facility] REPOSITORY TYPE CODE TESTS RESULT OUT OF RANGE REFERENCE UNITS LAB L501.2450 73-393 U/L Normal LIPASE 123 Performed By: #### L500.4050, L501.2400, L501.2450 #### [facility] [address] [place], [address] CARDIOLOGY VISIT Observed: 12/23/2017 Status: F Source: [place] REPORT 3:52 PM [facility] REPOSITORY [facility] [address] [place] [address] OFFICE VISIT Date of Service: 12/23/17 MR#: [id number] Acct: [id number] Name: SHANTELL RIVERA Rep #: [id number] : 1935 Provider: MONSERRAT Bishop Age/Sex: 82/M Location: [facility] Status: Signed HPI HPI Details: SHANTELL RIVERA, is a 82 M who presents to the office today for a cardiovascular outpatient follow-up. He has a history of coronary artery disease status post bypass surgery in 1997 with ROMERO to LAD and SVG to diagonal and sequential angioplasty and stenting to his LAD, proximal atrial fibrillation/flutter with ablation and AV sequential pacemaker placement, and orthostatic hypotension. Patient presented to [facility] emergency department in November 2017 for shortness of breath for 5 days, chest tightness, and lower extremity edema. His EKG showed atrial fibrillation at rate of 91 bpm with new or more pronounced T-wave inversions in the pericardial leads, negative troponin, and BNP of 467.8. He was admitted for further evaluation. His stress test was mildly abnormal with evidence of inferior basal infarct and mild sharon-infarct ischemia with a preserved ejection fraction. His heart catheterization showed similar finding as compared to January 2015 heart catheterization. His echocardiogram showed ejection fraction of 60%, moderately enlarged left atrium, and mild mitral valve insufficiency. He was diuresed and developed subsequent orthostatic hypotension. He was ultimately discharged home on reduced dose of metoprolol and without Lasix. Pt. denies chest, arm, jaw, or neck discomfort. His exercise tolerance is stable. Pt. denies symptoms of palpitations, near syncope, or syncopal episodes. Pt. denies claudication issues. Pt. denies orthopnea, PND, myalgia, or unexplainable fatigue. He states right back pain. He states stable weights at home. His SOB is much improved since hospitalization. He states lightheadedness and dizziness with quick position changes. He has been wearing is compression stockings. He also acknowledges decreasing his overall liquid intake. Intake Vital Signs12/23/17 Height 5 ft 8 in 12/23/17 Weight: 160 lb 12/23/17 Body Mass Index (BMI) 24.3 12/23/17 Blood Pressure 96/50 12/23/17 Blood Pressure Location Lt brachial Intake Visit Reasons: DC 8-16 (2 wk f/up) Stacker Required: No Accompanied by: none Allergies No Known Allergies Allergy (Verified 12/23/17 11:11) Medications Aspirin [Aspirin, Baby] 81 mg PO DAILY@0800 #0 tab.chew 11/26/14 [Rx Confirmed 12/23/17] Ergocalciferol [Vitamin D] 50,000 unit PO QMONTH #0 cap 11/26/14 [Rx Confirmed 12/05/17] Finasteride [Proscar] 5 mg PO DAILY #30 tab 11/26/14 [Rx Confirmed 12/05/17] Folic Acid 1 mg PO DAILY@0800 #0 tab 11/26/14 [Rx Confirmed 12/05/17] Nitroglycerin [Nitrostat] 0.4 mg SUBLINGUAL Q5M PRN #1 bottle 11/26/14 [Rx Confirmed 12/05/17] Omeprazole [Prilosec] 20 mg PO DAILY 02/19/15 [History Confirmed 12/05/17] Rosuvastatin Calcium [Crestor] 40 mg PO DAILY 02/19/15 [History Confirmed 12/05/17] Lipo-Flavonoid Plus 2 tab PO BID 12/13/15 [History Confirmed 12/05/17] multivitamin tablet 1 tab PO QAM 04/08/17 [History Confirmed 12/05/17] Calcium Phosphate Trib/Vit D3 [Citracal + D3 Gummies] 1 ea PO DAILY 07/29/17 [History Confirmed 12/05/17] Tamsulosin HCl [Flomax] 0.4 mg PO DAILY 07/29/17 [History Confirmed 12/05/17] methimazole 5 mg tablet 5 mg PO .COMPLEX #12 tab 08/12/17 [Rx Confirmed 12/05/17] Vitamin B Complex 2 ea PO DAILY 12/05/17 [History Confirmed 12/05/17] Digoxin [Lanoxin] 250 mcg PO DAILY #30 tab 12/10/17 [Rx Confirmed 12/23/17] Metoprolol(XL)Succ [Toprol Xl (Beta Seth)] 12.5 mg PO BID #60 tab 12/10/17 [Rx Confirmed 12/23/17] Midodrine HCl [Proamatine] 5 mg PO TID #90 tab 12/10/17 [Rx Confirmed 12/23/17] PFSH Medical History Coronary artery disease (Chronic) Hypertension (Chronic) Afib (Chronic) Cardiac pacemaker (Chronic) Afib (Acute) Anemia (Acute) Atrial flutter (Acute) CAD (coronary artery disease) (Acute) CHF (congestive heart failure) (Acute) Cardiomyopathy (Acute) Eyelid retraction unspecified eye, unspecified lid (Acute) Hyperlipidemia (Acute) Myocardial infarction (Acute) Orthostatic hypotension (Acute) Partial bowel obstruction (Acute) Presence of combination internal cardiac defibrillator (ICD) and pacemaker (Acute) small fiber autonomic neuropathy (Acute) ureteral stent (Acute) HTN (hypertension) (Chronic) Surgical History 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) S/P PTCA (percutaneous transluminal coronary angioplasty) (Chronic) H/O hernia repair (Acute) H/O myringoplasty (Acute) Hx of CABG (Acute) Hx of cholecystectomy (Acute) Family History Father Lung cancer CVA (cerebral vascular accident) Brother Sudden cardiac Social History Smoking Status: Former smoker alcohol intake: never substance use type: does not use ROS Const Const: Negative for fatigue, weakness, body ache, fever(s) or chills ENT ENT: Positive for dizziness Cardio Chest Pain: No Palpitations: No Edema: None Muscle aches with walking: None Resp Respiratory: Positive for SOB with activity (Improving); negative for SOB at rest, SOB orthopnea\SOB lying down or paroxysmal nocturnal dyspnea GI GI: Negative nausea, black,tarry stools, bright, red blood in stools or vomiting blood/hematemesis : Negative for hematuria or frequent nighttime urination/ nocturia Musc Musc: Negative for muscle aches/ myalgia Skin Skin: Negative non-healing lesions or rash Neuro Neuro: Positive for dizziness and lightheadedness; negative for weakness, near syncope, syncope or orthostatic symptoms Endo Endo: Negative for fatigue Allergy Allergy/Immunology: Negative for rash Cardiology Exam Const Appearance: cooperative, no acute distress and well developed Orientation: alert, awake and oriented x3 Head Head: normocephalic and atraumatic Mouth: moist mucous membranes Eyes General: appearance normal, both eyes and all related structures Conjunctivae: conjunctivae normal Pupils: PERRL EOM: EOM intact bilaterally Neck Neck: normal visual inspection, no lymphadenopathy and no JVD Carotids: Negative bruit Neck Mass: Negative Neck mass Chest Chest inspection: normal inspection of the chest, symmetric chest movement, midline sternotomy incision and Pacemaker/ICD Yes left pectoral incision Auscultation: Bilateral: Clear to Auscultation Cardio Palpation: normal PMI Rate: regular rate Rhythm: regular rhythm Heart sounds: S1 normal and S2 normal; negative rub, gallop or murmur GI GI: normal to inspection, soft, no hepatosplenomegaly and bowel sounds present; negative tender Neuro General: alert, awake, oriented x3, CN's II-XI intact bilaterally and moves all extremities Extremities Pulses: Normal: Right Posterior Tibial Pulse, Left Posterior Tibial Pulse, Right Radial Pulse, Left Radial Pulse Lower Extremity Edema: +2: Bilateral Psych Psychological: normal affect Supplemental Info Heart catheterization from November 2017 showed normal LVEDP, mild segmental LV systolic dysfunction with ejection fraction 50%, [place] multivessel coronary artery disease, ROMERO to LAD previously reported small, atretic, nonfunctional and not evaluated during examination, previous proximal LAD stent as patent, SVG to diagonal 1 as patent, calcified mitral valve annulus, mitral valve insufficiency grade 1 to grade 2, and compared to previous heart catheterization in January 2015 similar type changes. Medical therapy and risk factor modification was recommended. Echocardiogram from November 2017 showed normal LV size, estimated ejection fraction of 60%, unable to assess diastolic dysfunction due to arrhythmia, mildly enlarged left atrium, mild mitral valve insufficiency, mild focal aortic valve calcification, and when compared to previous study, the left ventricular systolic function is the same. Stress test from November 2017 was a mildly abnormal pharmacologic myocardial perfusion stress test with evidence of inferior basal infarct and mild sharon- infarct ischemia with a preserved ejection fraction 51%. Pacemaker check from October 2017 showed 35.5K VHR episodes with stored E grams showing atrial flutter/atrial fibrillation with RVR, presenting rhythm of atrial fibrillation at 78-160 bpm, SECURITY OPERATIONS MANAGER=13%, and estimated battery life of 4 years. Assessment AND Plan 1. Chronic diastolic (congestive) heart failure I50.32 Plan Echocardiogram from November 2017 showed ejection fraction of 60% and was unable to assess diastolic dysfunction due to arrhythmia. Since discharge patient's weight has remained stable. He denies any lower extremity edema or shortness of breath. He will continue low-dose beta-seth we will continue to hold diuretic at this time. He was reminded of symptoms of fluid volume overload that may indicate diuretic therapy. 2. Atherosclerosis of [place] coronary artery of [place] heart without angina pectoris I25.10 Plan Heart catheterization in November 2017 showed similar findings as compared to January 2015. Medical therapy and risk factor modification was recommended. He will continue with aspirin, low-dose metoprolol, and Crestor. 3. 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 His SVG to diagonal 1 was patent. He will continue current treatment plan as outlined above. 4. Chronic atrial fibrillation I48.2 Plan His pacemaker check in October 2017 showed multiple episodes of atrial flutter/atrial for ablation with RVR. During his most recent hospitalization his beta- seth was decreased due to orthostatic hypotension. His heart rate is well-controlled today in office. We will continue to follow this through pacemaker checks and continue titrate medications accordingly. 5. Sick sinus syndrome I49.5 Plan He is status post permanent pacemaker for this. Again, his beta-seth was most recently decreased. He will continue follow-up with pacemaker clinic for this. 6. Cardiac pacemaker Z95.0 Pacemaker implant June 2005; Pacemaker generator change 11/28/12; Plan Patient's pacemaker/ICD appears to be functioning appropriately. We will continue to monitor this with routine/scheduled follow-ups. 7. Orthostatic hypertension I10 Plan His blood pressure is well controlled at this time. He will continue current medications, which includes midodrine. 8. Pure hypercholesterolemia E78.00 Plan He will continue current statin medication. Plan Detail Additional Comments Thank you for allowing us to participate in the patient's plan of care, if you have any questions please do not hesitate to call. This note was generated using a voice recognition system and there may be incorrect words, spelling, or punctuation that were not noted upon reviewing the office note prior to saving. 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 transplanted heart: [place] heart Chronic atrial fibrillation I48.2 Sick sinus syndrome I49.5 Cardiac pacemaker Z95.0 Orthostatic hypertension I10 Pure hypercholesterolemia E78.00 Hyperlipidemia type: pure hypercholesterolemia 08/30/18 1552 <Electronically signed by Yannick MARTINEZC> Date Yannick Bishop PLASTICS SEASONER OPERATOR-C Cosigner Signature: Date (if applicable) CC: Jono Lamar MD BASIC METABOLIC Collected: 12/17/2017 Status: F Source: [place] [facility] ([facility]) 8:32 AM [facility] RE[facility] Order Comment: Send Results To: PCP Reason for Laboratory Test follow-up for CHF, A. fib TYPE CODE TESTS RESULT OUT OF RANGE REFERENCE UNITS LAB L501.0100 74-106 mg/dL Normal GLU 95 Result Comment: Please note revised GLUCOSE reference range effective 2017. LAB L501.1000 7-18 mg/dL High BUN 19 LAB L501.1100 0.70-1.30 mg/dL Normal CREAT,SERUM 1.18 Result Comment: The validity of the calculated GFR AND GFRAA in patients over 70 years has not been determined. Clinical correlation is essential. LAB L501.1110 >60 mL/min Normal EST GFR 63 Result Comment: Non- GFR Calc LAB L501.1115 >60 mL/min Normal EST GFR - AA 76 Result Comment: GFR Calc LAB L501.1300 10-20 RATIO Normal BUN/CRE 16.1 LAB L501.2200 8.5-10.1 mg/dL CA Normal 9.6 LAB L501.5300 136-145 mmol/L NA Normal 144 LAB L501.5600 3.5-5.1 mmol/L K Normal 4.3 LAB L501.5900 98-107 mmol/L High CL 110 LAB L501.6100 21.0-32.0 mmol/L Normal CO2 27.0 LAB L501.6200 5-15 Normal GAP 7 Performed By: #### L500.2500 #### [facility] [address] [place], [place], [address] DIGOXIN LEVEL Collected: 12/17/2017 Status: F Source: ANA 8:32 AM [facility] REPOSIT[facility] Order Comment: Send Results To: PCP, Dr. Jeffers Reason for Laboratory Test follow-up on treatment TYPE CODE TESTS RESULT OUT OF RANGE REFERENCE UNITS LAB L501.7510 0.80-2.00 ng/mL Normal DIG 1.52 Performed By: #### L501.7510 #### [facility] [address] [place], [address] DISCHARGE SUMMARY Observed: 12/13/2017 Status: F Source: ANA 1:25 PM [facility] REPOSITORY [facility] Medical Records Department [address] [place] [address] Discharge Summary 12/10/17 1151 MR#: [id number] Acct: [id number] Name: SHANTELL RIVERA Rep #: [id number] : 1935 82 From: Carol Leary MD PCP: Jono Lamar MD, Chi Status: DIS IN Y Location: [place] [address] Discharge Date and Diagnosis Date of Admission: 12/05/17 Date of Discharge: 12/10/17 - Primary Discharge Diagnosis Active and Suspected Problems (Last Reviewed 12/05/17 @ 15:18 by Johnson Roque DO) CHF (congestive heart failure) (Acute), diastolic Othostatic hypotension - Secondary Discharge Diagnosis Chronic Problems (Last Reviewed 12/05/17 @ 15:18 by Johnson Roque DO) Atherosclerosis of coronary artery of [place] heart without angina pectoris (Chronic) Chronic atrial fibrillation (Chronic) Encounter for long-term current use of high risk medication (Chronic) Abnormal result of cardiovascular function study (Chronic) Chronic diastolic (congestive) heart failure (Chronic) Atherosclerosis of coronary artery bypass graft without angina pectoris (Chronic) Paroxysmal atrial fibrillation (Chronic) Thyroid dysfunction (Chronic) Mild hyperthyroidism. Will order thyroid US and antibodies. Start on low dose tapazole. 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) CABG November 1997, ROMERO to LAD, SVG from aorta to ramus intermedius artery Coronary artery disease (Chronic) Sick sinus syndrome (Chronic) Kidney disease, chronic, stage III (GFR 30-59 ml/min) (Chronic) Hyperlipidemia (Chronic) Hypothyroidism (Chronic) Hypertension (Chronic) Afib (Chronic) Cardiac pacemaker (Chronic) Pacemaker implant June 2005; Pacemaker generator change 11/28/12; S/P PTCA (percutaneous transluminal coronary angioplasty) (Chronic) 02/20/98 PTCA to end stent restenosis of mid cx; 07/18/97 PTCA/stent of obtuse marginal AND distal CX; 09/13/97 Rotational atherectomy of CX; 09/25/97, 11/01/97 PTSC/stent of CX; PTCA with stenting of LAD02/21/03; Thyroid disease (Chronic) Hospital Course and Treatment Imaging Results: Clinical Impression(s) from Imaging Studies Chest X-Ray 12/05/17 12:55 IMPRESSION: COPD with stable blunting of the bilateral costophrenic angles. No acute airspace disease. Electronically Signed: George Kong DO at 13:54 EDT Tel , Service support , Cardiology Operations: None Procedures: None Summary of Care Provided: The patient is a 82 year old M withg PMHx of chronic diastolic CHF, chronic Afib, CAD s/p double CABG, stents, HTN, HLD, hypothyroid, CKDIII comes in with SOB at rest and on exertion, associated with orthopnea and PND. EKG had shown new T wave inversions. Troponins were however negative. Cardiology was consulted, findings were unremarkable. He was managed as acute on chronic diastolic CHF with Lasix. Patient became hypotensive with significant positive orthostatic hypotensive vitals. His lasix dose was reduced, as well as his metoprolol. He was discharged off Lasix with strict orders to have daily weights, fluid restriction and cardiology follow-up and resume Lasix if he should gain weight rapidly. Discharge Diet: Low fat/ Low Cholesterol, 2000 mg Sodium Diet Discharge Activity: Return to Normal Activity Home Medications: Medications to take at Discharge Aspirin [Aspirin, Baby] 81 mg PO DAILY@0800 #0 tab.chew 11/26/14 Ergocalciferol [Vitamin D] 50,000 unit PO QMONTH #0 cap 11/26/14 Finasteride [Proscar] 5 mg PO DAILY #30 tab 11/26/14 Folic Acid 1 mg PO DAILY@0800 #0 tab 11/26/14 Nitroglycerin [Nitrostat] 0.4 mg SUBLINGUAL Q5M PRN #1 bottle 11/26/14 Omeprazole [Prilosec] 20 mg PO DAILY 02/19/15 Rosuvastatin Calcium [Crestor] 40 mg PO DAILY 02/19/15 Lipo-Flavonoid Plus 2 tab PO BID 12/13/15 multivitamin tablet 1 tab PO QAM 04/08/17 Calcium Phosphate Trib/Vit D3 [Citracal + D3 Gummies] 1 ea PO DAILY 07/29/17 Tamsulosin HCl [Flomax] 0.4 mg PO DAILY 07/29/17 methimazole 5 mg tablet 5 mg PO .COMPLEX #12 tab 08/12/17 Vitamin B Complex 2 each PO DAILY 12/05/17 Digoxin [Lanoxin] 250 mcg PO DAILY #30 tab 12/10/17 Metoprolol(XL)Succ [Toprol Xl (Beta Seth)] 12.5 mg PO BID #60 tab 12/10/17 Midodrine HCl [Proamatine] 5 mg PO TID #90 tab 12/10/17 Following Prescrptions Were Given to Patient: Digoxin [Lanoxin] 250 mcg PO DAILY #30 tab Metoprolol(XL)Succ [Toprol Xl (Beta Seth)] 12.5 mg PO BID #60 tab Midodrine HCl [Proamatine] 5 mg PO TID #90 tab Primary Care Physician: Jono Lamar Chi, MD [Primary Care Provider] - Please follow up with your Primary Care Physician in: 1-2 weeks Please Follow Up With: Jono Lamar Chi, MD Please Follow Up With: Jerry Jeffers MD When: within 2 weeks Disposition: Home with Home Health Minutes spent on discharge:: 40 Patient Condition:: Stable Medical Necessity - Tobacco Use Smoking Status: Former smoker Meaningful Use Info Meaningful Use Diagnoses (Choose all that apply): None applicable Code Visit Inpatient E AND M: 69041 Disch Hosp 12/13/17 1325 <Electronically signed by Carol Leary MD> Date Carol Leary MD Cosigner Signature (if applicable): Date CC: Carol Leary MD; Jono Lamar MD Signed CARDIOLOGY VISIT Observed: 12/11/2017 Status: F Source: ANA REPORT 9:11 AM [facility] REPOSIT[facility] [address] [place] [address] OFFICE VISIT Date of Service: 12/02/17 MR#: [id number] Acct: [id number] Name: SHANTELL RIVERA Rep #: [id number] : 1935 Provider: Trice Gaming Age/Sex: 82/M Location: [facility] Status: Signed HPI HPI Details: SHANTELL RIVERA is a 82 M who presents to the office today for a cardiovascular follow-up. He has a history of coronary artery disease with bypass surgery and subsequent angioplasty and stenting of his LAD. He also has a history of paroxysmal atrial fibrillation/flutter with ablation and AV sequential pacemaker placed. He also has a history of orthostatic hypotension. Pt was in the ER 2 days ago for increased SOB and orthopnea. CXR did demonstrate pleural effusion and BNP was slightly elevated at 338. He was given IV lasix. He sts that he is still orthopneic, but sleeps with one pillow. He does occasionally have SOB at rest. He has not had any chest discomfort. He does not have any palpitations that he is aware of. He still does have some dizziness but feels that this is unchanged from his previous visit. Intake Vital Signs12/02/17 Height 5 ft 8 in 12/02/17 Weight: 168 lb 12/02/17 Body Mass Index (BMI) 25.5 12/02/17 Blood Pressure 100/62 12/02/17 Blood Pressure Location Lt brachial Intake Visit Reasons: S/P [facility] ER Stacker Required: No Accompanied by: none Is patient in pain?: No Allergies No Known Allergies Allergy (Verified 12/02/17 13:27) Medications Aspirin [Aspirin, Baby] 81 mg PO DAILY@0800 #0 tab.chew 11/26/14 [Rx Confirmed 12/05/17] Ergocalciferol [Vitamin D] 50,000 unit PO QMONTH #0 cap 11/26/14 [Rx Confirmed 12/05/17] Finasteride [Proscar] 5 mg PO DAILY #30 tab 11/26/14 [Rx Confirmed 12/05/17] Folic Acid 1 mg PO DAILY@0800 #0 tab 11/26/14 [Rx Confirmed 12/05/17] Nitroglycerin [Nitrostat] 0.4 mg SUBLINGUAL Q5M PRN #1 bottle 11/26/14 [Rx Confirmed 12/05/17] Omeprazole [Prilosec] 20 mg PO DAILY 02/19/15 [History Confirmed 12/05/17] Rosuvastatin Calcium [Crestor] 40 mg PO DAILY 02/19/15 [History Confirmed 12/05/17] Lipo-Flavonoid Plus 2 tab PO BID 12/13/15 [History Confirmed 12/05/17] multivitamin tablet 1 tab PO QAM 04/08/17 [History Confirmed 12/05/17] Calcium Phosphate Trib/Vit D3 [Citracal + D3 Gummies] 1 ea PO DAILY 07/29/17 [History Confirmed 12/05/17] Tamsulosin HCl [Flomax] 0.4 mg PO DAILY 07/29/17 [History Confirmed 12/05/17] methimazole 5 mg tablet 5 mg PO .COMPLEX #12 tab 08/12/17 [Rx Confirmed 12/05/17] Vitamin B Complex 2 ea PO DAILY 12/05/17 [History Confirmed 12/05/17] Digoxin [Lanoxin] 250 mcg PO DAILY #30 tab 12/10/17 [Rx] Metoprolol(XL)Succ [Toprol Xl (Beta Seth)] 12.5 mg PO BID #60 tab 12/10/17 [Rx] Midodrine HCl [Proamatine] 5 mg PO TID #90 tab 12/10/17 [Rx] PFSH Medical History Coronary artery disease (Chronic) Hypertension (Chronic) Afib (Chronic) Cardiac pacemaker (Chronic) Afib (Acute) Anemia (Acute) Atrial flutter (Acute) CAD (coronary artery disease) (Acute) CHF (congestive heart failure) (Acute) Cardiomyopathy (Acute) Eyelid retraction unspecified eye, unspecified lid (Acute) Hyperlipidemia (Acute) Myocardial infarction (Acute) Orthostatic hypotension (Acute) Partial bowel obstruction (Acute) Presence of combination internal cardiac defibrillator (ICD) and pacemaker (Acute) small fiber autonomic neuropathy (Acute) ureteral stent (Acute) HTN (hypertension) (Chronic) Surgical History 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 He did undergo a diagnostic heart catheterization which demonstrated left ventricular end-diastolic pressure compatible with decreased diastolic compliance. Regional wall motion abnormalities with overall preserved ejection fraction was noted. Coronary artery demonstrates angiographically significant appearing coronary artery disease. Graft angiography demonstrates the SVG to the diagonal to be patent, ROMERO to the LAD small icteric and nonfunctional. Valvular interrogation suggested mitral annular calcification with mild to moderate mitral regurgitation. It was recommended that he continue with aggressive medical management. Echocardiogram in 2016 demonstrated Normal LV size. Mild segmental systolic dysfunction (see wall motion). The estimated ejection fraction is 50 %. Mild tricuspid valve insufficiency. Assessment AND Plan 1. Acute congestive heart failure, unspecified heart failure type I50.9 Plan Will have patient continue with his Lasix for 5 days. With his history of hypotension concerned about continuing this. He at if his shortness of breath returns that we may need to resume the Lasix and at that time we will do some additional testing. Patient Instructions Take your lasix for 5 days, then let me know how you are doing. If your SOB returns call our office, you may need to resume this and them we will need to do additional testing. 2. Atherosclerosis of [place] coronary artery of [place] heart without angina pectoris I25.10 Plan Patient does not have any symptoms of angina. For now we will not do any additional testing. 3. Paroxysmal atrial fibrillation I48.0 Plan Patient will continue with his rate limiting medication in addition to his digoxin. He is not anticoagulated due to his frequent falling. He will continue with his aspirin. 4. Pure hypercholesterolemia E78.00; E78.0 Plan He will continue with his moderate intensity statin. This is being monitored by his primary care doctor. 5. Cardiac pacemaker Z95.0 Pacemaker implant June 2005; Pacemaker generator change 11/28/12; Plan Pacemaker is functioning appropriately. We will continue to monitor at routine scheduled pacemaker interrogations. 6. Essential hypertension I10 Plan Patient's blood pressure is on the low side. He is on medications to help with this. As mentioned above we will continue to monitor closely as he does have a history of orthostatic hypotension is on a diuretic. Plan Detail Additional Comments Thank you for allowing us to participate in the patients plan of care, if you have any questions please do not hesitate to call. This note was generated using a voice recognition system and there may be incorrect words, spelling or punctuation that were not noted when reviewing the office note prior to saving. Coding Level of Care Code Off vis,est,level 3 Diagnoses Acute congestive heart failure, unspecified heart failure type I50.9 Heart failure type: unspecified Heart failure chronicity: acute Atherosclerosis of [place] coronary artery of [place] heart without angina pectoris I25.10 Coronary Disease-Associated Artery/Lesion type: [place] artery Paroxysmal atrial fibrillation I48.0 Pure hypercholesterolemia E78.00; E78.0 Hyperlipidemia type: pure hypercholesterolemia Cardiac pacemaker Z95.0 Essential hypertension I10 Hypertension type: essential hypertension Coding Level of Care Code Off vis,est,level 3 Diagnoses Acute congestive heart failure, unspecified heart failure type I50.9 Heart failure type: unspecified Heart failure chronicity: acute Atherosclerosis of [place] coronary artery of [place] heart without angina pectoris I25.10 Coronary Disease-Associated Artery/Lesion type: [place] artery Paroxysmal atrial fibrillation I48.0 Pure hypercholesterolemia E78.00; E78.0 Hyperlipidemia type: pure hypercholesterolemia Cardiac pacemaker Z95.0 Essential hypertension I10 Hypertension type: essential hypertension 12/11/17 0911 <Electronically signed by Trice FUENTES> Date Trice FUENTES Cosigner Signature: Date (if applicable) CC: Jono Lamar MD 12 LEAD ELECTROCARDIOGRAM Observed: 12/10/2017 Status: F Source: ANA 1:56 PM [facility] RE[facility]IT[facility] Cardiovascular Services [address] [place] [address] 12 Lead EKG 12/07/17 0545 MR#: [id number] Acct: [id number] Name: SHANTELL RIVERA Rep #: [id number] : 1935 82 From: Casey Leo MD Attending Dr: Carol Leary MD Status: DIS IN Ordering Dr: Casey Leo MD Date: 12/07/17 Location: [facility] Sex: M C Admitted: 12/05/17 Test Reason : AM Blood Pressure : / mmHG Vent. Rate : 093 BPM Atrial Rate : 468 BPM P-R Int : 000 ms QRS Dur : 100 ms QT Int : 358 ms P-R-T Axes : 000 042 -73 degrees QTc Int : 445 ms Atrial fibrillation with frequent ventricular-paced complexes ST AND T wave abnormality, consider inferior ischemia ST AND T wave abnormality, consider anterolateral ischemia Abnormal ECG When compared with ECG of 05-DEC-2017 13:05, MANUAL COMPARISON REQUIRED, DATA IS UNCONFIRMED Confirmed by CASEY LEO MD ([id number]), research editor JONATHAN RIVERA ([id number]) on 12/10/2017 1:56:11 PM Referred By: SHIVA Confirmed By:CASEY LEO MD 12/10/17 1356 Date Casey Leo MD CC: Carol Leary MD; Casey Leo MD; Jono Lamar MD Signed DISCHARGE INSTRUCTION Observed: 12/10/2017 Status: F Source: ANA 11:51 AM [facility] REPOSIT[facility] Medical Records Department [address] [place] [address] Instructions for Home/Discharge Instructions 12/10/17 1144 MR#: [id number] Acct: [id number] Name: SHANTELL RIVERA Rep #: [id number] : 1935 82 From: Carol Leary MD PCP: Len TABOR,Jono Cannon Status: ADM IN - Discharge Diagnoses Current Active Problems: Current Active and Chronic Problems (Last Reviewed 12/05/17 @ 15:18 by Johnson Roque DO) CHF (congestive heart failure) (Acute) You will use the following diet at home:: Cardiac Your food should be the consistency of: Regular Your liquids should be the consistency of: Regular/Thin Discharge Activity: Return to Normal Activity Additional Instructions: Take note to changes in your medications. Be careful when going from sitting to standing. You should slowly get up from sitting to standing. Continue to wear your ZUHAIR hoses - 12 hours on, 12 hours off. You have been taken off Lasix on account of low blood pressure. Continue to follow a low salt, heart healthy diet. Weigh yourself everyday. You will be followed up by Home health team - therapy and nurses. You should see Dr. Jeffers and your PCP in 2-4 weeks. Allergies/Adverse Reactions: Allergies No Known Allergies Allergy (Verified 12/02/17 13:27) Medications to take at Discharge Aspirin [Aspirin, Baby] 81 mg PO DAILY@0800 #0 tab.chew 11/26/14 Ergocalciferol [Vitamin D] 50,000 unit PO QMONTH #0 cap 11/26/14 Finasteride [Proscar] 5 mg PO DAILY #30 tab 11/26/14 Folic Acid 1 mg PO DAILY@0800 #0 tab 11/26/14 Nitroglycerin [Nitrostat] 0.4 mg SUBLINGUAL Q5M PRN #1 bottle 11/26/14 Omeprazole [Prilosec] 20 mg PO DAILY 02/19/15 Rosuvastatin Calcium [Crestor] 40 mg PO DAILY 02/19/15 Lipo-Flavonoid Plus 2 tab PO BID 12/13/15 multivitamin tablet 1 tab PO QAM 04/08/17 Calcium Phosphate Trib/Vit D3 [Citracal + D3 Gummies] 1 ea PO DAILY 07/29/17 Tamsulosin HCl [Flomax] 0.4 mg PO DAILY 07/29/17 methimazole 5 mg tablet 5 mg PO .COMPLEX #12 tab 08/12/17 Vitamin B Complex 2 each PO DAILY 12/05/17 Digoxin [Lanoxin] 250 mcg PO DAILY #30 tab 12/10/17 Metoprolol(XL)Succ [Toprol Xl (Beta Seth)] 12.5 mg PO BID #60 tab 12/10/17 Midodrine HCl [Proamatine] 5 mg PO TID #90 tab 12/10/17 The following prescriptions were given: Digoxin [Lanoxin] 250 mcg PO DAILY #30 tab Metoprolol(XL)Succ [Toprol Xl (Beta Seth)] 12.5 mg PO BID #60 tab Midodrine HCl [Proamatine] 5 mg PO TID #90 tab Orders to be completed after discharge: Basic Metabolic Profile (BMP) Time Frame: 1 Week, Location: Laboratory Digoxin Level Time Frame: 1 Week, Location: Laboratory Primary Care Physician: Jono Lamar Chi, MD [Primary Care Provider] - Please follow up with your Primary Care Physician in: 1-2 weeks Test Results: Test results from this visit will be discussed in further detail at your follow-up appointment, if applicable. Please Follow Up With: Jono Lamar Chi, MD Please Follow Up With: Jerry Jeffers MD When: within 2 weeks Proposed Discharge Date: 12/10/17 12/10/17 1151 <Electronically signed by Carol Leary MD> Date Carol Leary MD CC: Casey Leo MD; Jono Lamar MD TROPONIN-I Collected: 12/09/2017 Status: F Source: ANA 8:05 [facility] REPOSITORY Order Comment: 'TROP' Serial specimen #1, #2, #3, or #4: 1 TYPE CODE TESTS RESULT OUT OF RANGE REFERENCE UNITS LAB L501.4010 <0.045 ng/mL Normal 0.016 TROPONIN-I Result Comment: TROPONIN-I EXPECTED VALUES <0.045 Negative 0.045 - 0.590 Consistent with Cardiac Damage > OR = 0.600 Critical Value Not every elevated troponin is indicative of IL. These values should be used with clinical judgement in examining the patient's clinical picture for diagnosis. To establish a diagnosis of IL versus myocardial injury, there must be a demonstrated rise and/or fall in the troponin values, in addition to ischemic symptoms, EKG changes, new regional wall motion abnormality, and/or angiographical evidence. PLEASE NOTE: REFERENCE RANGES EDITED 17 Performed By: #### L501.4010 #### [facility] [address] [place], [address] BASIC METABOLIC Collected: 12/09/2017 Status: F Source: ANA PROFILE (BMP) 6:05 AM [facility] TYPE CODE TESTS RESULT OUT OF RANGE REFERENCE UNITS LAB L501.0100 74-106 mg/dL Normal GLU 93 Result Comment: Please note revised GLUCOSE reference range effective 2017. LAB L501.1000 7-18 mg/dL High BUN 30 LAB L501.1100 0.70-1.30 mg/dL Normal CREAT,SERUM 1.03 Result Comment: The validity of the calculated GFR AND GFRAA in patients over 70 years has not been determined. Clinical correlation is essential. LAB L501.1110 >60 mL/min Normal EST GFR 74 Result Comment: Non- GFR Calc LAB L501.1115 >60 mL/min Normal EST GFR - AA 89 Result Comment: GFR Calc LAB L501.1255 ml/min Normal Estimated CRCL 54.42 LAB L501.1300 10-20 RATIO High BUN/CRE 29.1 LAB L501.2200 8.5-10 mg/dL Normal .1 CA 9.1 LAB L501.5300 136-14 mmol/L Normal 5 NA 143 LAB L501.5600 3.5-5. mmol/L Normal 1 K 4.0 LAB L501.5900 98-107 mmol/L High CL 110 LAB L501.6100 21.0-3 mmol/L Normal 2.0 CO2 26.0 LAB L501.6200 5-15 Normal GAP 7 Performed By: #### L500.2500 #### [facility] [address] [place], [address] CONSULTATION Observed: 12/08/2017 Status: F Source: ANA 11:51 AM [facility] RE[facility] Medical Records Department [address] [place] [address] Consultation 12/06/1730 MR#: [id number] Acct: [id number] Name: SHANTELL RIVERA Rep #: [id number] : 1935 82 From: Casey Leo MD PCP: Len TABOR,Jono Cannon Status: ADM IN Y Location: [facility] [id number] Reason for Consult Date of Consultation: 12/06/17 Reason for Consultation: Shortness of breath. History of Present Illness: The patient is a 82 year old M with a history of hypertension chronic persistent atrial fibrillation status post pacemaker implantation coronary bypass surgery who presented to the emergency room with progressive shortness of breath over the last 5 days. He apparently had been doing well until then when he sought the physician inventory control assistant of the heart group and had some adjustments made to his diuretic therapy. He denies any chest pain or paroxysmal nocturnal dyspnea but he did develop some pedal edema and he also had a mild cough. He did not notice any rapid ventricular response to his palpitations and he says that he has been compliant with his medications. On presentation to the emergency room he was noted to be mildly short of breath his natruretic peptide was elevated and it was felt that he would benefit from IV diuretics. He was admitted and cardiology consulted for further evaluation and treatment. [] Past Medical History Allergies/Adverse Reactions: Allergies No Known Allergies Allergy (Verified 12/02/17 13:27) Home Medications: Ambulatory Orders Medication Instructions Recorded Aspirin [Aspirin, Baby] 81 mg PO DAILY@0800 #0 tab.chew 11/26/14 Ergocalciferol [Vitamin D] 50,000 unit PO QMONTH #0 cap 11/26/14 Past Medical History (Chronic Problems): Chronic Problems (Last Reviewed 12/05/17 @ 15:18 by Johnson Roque DO) Atherosclerosis of coronary artery of [place] heart without angina pectoris (Chronic) Chronic atrial fibrillation (Chronic) Encounter for long-term current use of high risk medication (Chronic) Abnormal result of cardiovascular function study (Chronic) Chronic diastolic (congestive) heart failure (Chronic) Atherosclerosis of coronary artery bypass graft without angina pectoris (Chronic) Paroxysmal atrial fibrillation (Chronic) Thyroid dysfunction (Chronic) Mild hyperthyroidism. Will order thyroid US and antibodies. Start on low dose tapazole. 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) CABG November 1997, ROMERO to LAD, SVG from aorta to ramus intermedius artery Coronary artery disease (Chronic) Sick sinus syndrome (Chronic) Kidney disease, chronic, stage III (GFR 30-59 ml/min) (Chronic) Hyperlipidemia (Chronic) Hypothyroidism (Chronic) Hypertension (Chronic) Afib (Chronic) Cardiac pacemaker (Chronic) Pacemaker implant June 2005; Pacemaker generator change 11/28/12; S/P PTCA (percutaneous transluminal coronary angioplasty) (Chronic) 02/20/98 PTCA to end stent restenosis of mid cx; 07/18/97 PTCA/stent of obtuse marginal AND distal CX; 09/13/97 Rotational atherectomy of CX; 09/25/97, 11/01/97 PTSC/stent of CX; PTCA with stenting of LAD02/21/03; Thyroid disease (Chronic) Surgical History: cholecystectomy, coronary bypass surgery, herniorrhaphy, - Psychiatric History: No pertinent psych hx - *Family History Paternal Family History: Family History (Last Reviewed 12/05/17 @ 15:18 by Johnson Roque DO) Father Lung cancer CVA (cerebral vascular accident) Brother Sudden cardiac History Items: Cancer, - Maternal Family History: Family History (Last Reviewed 12/05/17 @ 15:18 by Johnson Roque DO) Father Lung cancer CVA (cerebral vascular accident) Brother Sudden cardiac History Items: - - according to her she had every disease known to man in her sleep Lives: Alone Smoking Status: Former smoker Alcohol: None Drugs: None Review of Systems - Review of Systems General: Denies: Fever, Night Sweats, Fatigue Cardiovascular: Reports: Shortness of Breath, Shortness of Breath at Rest. Denies: Chest Discomfort, Orthopnea, PND, Peripheral Edema, Palpitations, Lightheadedness, Dizziness, Near Syncope, Syncope Respiratory: Denies: Cough, Sputum Production, Hemoptysis Gastrointestinal: Denies: Hematemesis, Hematochezia, Melena Genitourinary: Denies: Dysuria, Hematuria Skin: Denies: Rash Subjectve: Pleasant gentleman in no apparent distress Objective: Vital Signs Temp Pulse Resp BP Pulse Ox 97.1 F L 88 20 H 129/58 H 96 12/06/17 03:20 12/06/17 07:18 12/06/17 03:20 12/06/17 03:20 12/06/17 03:20 Oxygen Delivery Method Room Air Weight: 155 lb 13.869 oz Body Mass Index (BMI) 25.0 Intake and Output for Last 24 Hours Intake Total 250 / 250 420 / 420 Output Total 1150 / 1150 Balance 250 / 250 -730 / -730 General: Awake, Alert, Oriented x 3 HEENT: PERRL, EOMI, Sclera Non Icteric Neck: Supple, Good ROM, No Lymph Node Enlargement Lungs: Rales - Norm Bases Cardiovascular: Irregular Rhythm, Normal S1, Normal S2, No Murmurs, No Rubs, No Gallops Vascular: No Carotid Bruits, Normal Femoral Pulses, Normal Radial Pulses, Normal Dorsalis Pedal Pulse, Normal Posterior Tibial Pulses Abdomen: Bowel Sounds Present, Soft, Non Tender, No HSM, No Organomegaly Extremities: No Cyanosis, No Clubbing, Bilateral Edema +1 Neurological: No Focal Motor or Sensory Deficit 12/05/17 16:05: Troponin I < 0.015 12/05/17 18:48: Troponin I < 0.015 12/06/17 01:30: Magnesium 2.1 12/06/17 05:30: Sodium 146 H, Potassium 3.6, Chloride 107, Carbon Dioxide 26.0, Anion Gap 13, BUN 24 H, Creatinine 1.12, Est GFR (MDRD) Af Amer 81, Est GFR (MDRD) Non-Af 67, BUN/Creatinine Ratio 21.4 H, Glucose 95, Calcium 9.3 Rhythm: EKG: Atrial fibrillation with a ventricular response rate of 91 bpm. T-wave inversions noted laterally. ECHO: Preserved ejection fraction was noted on previous echocardiogram Stress Test: Cardiac Cath: He had undergone a cardiac catheterization in 2014 which demonstrated a patent saphenous vein graft to the first diagonal vessel, and a left internal mammary artery to the left anterior descending artery which was also noted to be patent. There was evidence of moderate in-stent stenosis of the previously placed stents in the circumflex artery distribution. Medical therapy was recommended. Assessment/Plan 1. Congestive heart failure-acute diastolic * The exact etiology and precipitating factors are not entirely clear. His troponin remains negative at this particular time but she does appear to be in atrial fibrillation with a rapid ventricular response rate. My recommendation would be to continue with IV diuresis. * Obtain an echocardiogram to reassess his left ventricular function- * Continue serial cardiac enzymes * Obtain myocardial perfusion imaging to exclude ischemia. * 2. Coronary artery disease. * Patient has history of known coronary artery disease. T- wave inversions are noted on his EKG but it is not clear whether this is secondary to ischemia. * We will continue with current medical therapy and obtain a pharmacologic myocardial perfusion stress test. * 3. Hypertension * His blood pressure appears to well controlled on the current medical regimen and no other major changes will be made. * Will reevaluate echocardiogram for left ventricular wall thickness. * 4. Atrial fibrillation. * He does have evidence of chronic persistent atrial fibrillation. It is unclear whether his ventricular response rate is controlled on not. We will evaluate his pacemaker to see what his ventricular response rate has been. In the meantime he will continue with anticoagulation. * 5. Status post pacemaker placement * He does have a permanent pacemaker implantation and we will continue to follow this and interrogated in the office as appropriate. * * Thank you for allowing me to participate in the care of your patient. Please don't hesitate to call if any issues arise * Addendum: Echocardiogram demonstrated overall preserved left ventricular systolic function with basal inferior hypokinesis Myocardial perfusion stress testing demonstrated evidence of basal inferior and inferolateral infarct with evidence of moderate sharon-infarct ischemia. Based on the above it may be prudent to reassess his coronary anatomy especially with his T-wave inversions which are noted laterally. We discussed with the patient. 12/08/17 1151 <Electronically signed by Casey Leo MD> Date Casey Leo MD Cosigner Signature (if applicable): Date CC: Casey Leo MD; Jono Lamar MD Signed HH, HEMOGLOBIN AND Collected: 12/08/2017 Status: F Source: [place] HEMATOCRIT 6:05 AM [facility] REPOSITORY TYPE CODE TESTS RESULT OUT OF RANGE REFERENCE UNITS LAB L100.1300 13.0-16.5 g/dl Low HGB 12.8 LAB L100.1400 40-54 % Low HCT 38.5 Performed By: #### L100.0600 #### [facility] [address] [place], [address] BASIC METABOLIC Collected: 12/08/2017 Status: F Source: [place] PROFILE (BMP) 6:05 AM [facility] REPOSITORY TYPE CODE TESTS RESULT OUT OF RANGE REFERENCE UNITS LAB L501.0100 74-106 mg/dL Normal GLU 84 Result Comment: Please note revised GLUCOSE reference range effective 2017. LAB L501.1000 7-18 mg/dL High BUN 26 LAB L501.1100 0.70-1.30 mg/dL Normal CREAT,SERUM 1.07 Result Comment: The validity of the calculated GFR AND GFRAA in patients over 70 years has not been determined. Clinical correlation is essential. LAB L501.1110 >60 mL/min Normal EST GFR 70 Result Comment: Non- GFR Calc LAB L501.1115 >60 mL/min Normal EST GFR - AA 85 Result Comment: GFR Calc LAB L501.1255 ml/min Normal Estimated CRCL 52.38 LAB L501.1300 10-20 RATIO High BUN/CRE 24.3 LAB L501.2200 8.5-10 mg/dL Normal .1 CA 9.3 LAB L501.5300 136-14 mmol/L Normal 5 NA 142 LAB L501.5600 3.5-5. mmol/L Normal 1 K 3.9 LAB L501.5900 98-107 mmol/L High CL 109 LAB L501.6100 21.0-3 mmol/L Normal 2.0 CO2 26.0 LAB L501.6200 5-15 Normal GAP 7 Performed By: #### L500.2500 #### [facility] [address] [facility] [address] [facility] [place], [address] 12 LEAD ELECTROCARDIOGRAM Observed: 12/07/2017 Status: F Source: [place] 12:50 PM [facility] REPOSITORY [facility] Cardiovascular Services [address] [place] [address] 12 Lead EKG 12/05/17 1305 MR#: [id number] Acct: [id number] Name: SHANTELL RIVERA Rep #: [id number] : 1935 82 From: Casey Leo MD Attending Dr: Johnson Roque DO Status: ADM IN Ordering Dr: Beck Foote MD Date: 12/05/17 Location: [facility] Sex: M C Admitted: 12/05/17 Test Reason : SOB Blood Pressure : / mmHG Vent. Rate : 091 BPM Atrial Rate : 092 BPM P-R Int : 000 ms QRS Dur : 102 ms QT Int : 386 ms P-R-T Axes : 000 027 -72 degrees QTc Int : 474 ms Atrial fibrillation with occasional ventricular-paced complexes ST AND T wave abnormality, consider anterolateral ischemia Prolonged QT Abnormal ECG Confirmed by AHMET TABOR, CASEY ([id number]), research editor JONATHAN RIVERA ([id number]) on 12/07/2017 12:49:49 PM Referred By: ANTONETTE Confirmed By:CASEY LEO MD 12/07/17 1249 Date Casey Leo MD CC: Johnson Roque DO; Beck Foote MD; Jono Lamar MD Signed CBC W/DIFF, AUTOMATED Collected: 12/07/2017 Status: F Source: [place] 5:05 AM [facility] REPOSITORY TYPE CODE TESTS RESULT OUT OF RANGE REFERENCE UNITS LAB L100.1000 4.4-11.0 K/mm3 Normal WBC 6.1 LAB L100.1200 4.6-6.2 M/mm3 Low RBC 4.23 LAB L100.1300 13.0-16.5 g/dl Low HGB 12.6 LAB L100.1400 40-54 % Low HCT 38.2 LAB L100.1500 80-94 fL Normal MCV 90.3 LAB L100.1600 27.0-32.0 pg Normal MCH 29.8 LAB L100.1700 32-36 g/gl Normal MCHC 33.0 LAB L100.1810 11.6-14.6 % High RDW CV 14.8 LAB L100.1820 35.1-43.9 fl High RDW SD 48.4 LAB L100.1900 150-450 K/mm3 Normal PLT 182 LAB L100.2000 6.2-12.0 fl Normal MPV 10.0 LAB L100.2100 47-70 % Normal NEUT% 61.0 LAB L100.2200 19-41 % Normal LY% 27.7 LAB L100.2300 0-10 % Normal MONO% 7.7 LAB L100.2400 0-5 % Normal EO% 3.1 LAB L100.2500 0-1 % Normal BASO% 0.5 LAB L100.2550 0.0-0.9 % Normal IM GRAN % 0.000 Result Comment: IG% - Immature Granulocytes (promyelocytes, myelocytes and metamyelocytes) > 1% indicates that a LEFT SHIFT is Present. LAB L100.2620 2.0-7.7 X10 3/uL Normal Absolute Neut 3.7 LAB L100.2720 0.83-4.51 X10 3/ul Normal Absolute Lymph 1.70 Performed By: #### L100.0100 #### [facility] [address] [place], [place], [id number] PROTHROMBIN TIME W/INR Collected: 12/07/2017 Status: F Source: [place] 5:05 AM [facility] REPOSITORY TYPE CODE TESTS RESULT OUT OF RANGE REFERENCE UNITS LAB L300.4150 11.7-14.9 SECONDS High PROTIME 15.0 LAB L300.4200 Normal INR 1.2 Performed By: #### L300.3900, L300.4310 #### [facility] [address] [place], [place], [id number] PARTIAL THROMBOPLAST Collected: 12/07/2017 Status: F Source: [place] TIME 5:05 AM [facility] REPOSITORY TYPE CODE TESTS RESULT OUT OF RANGE REFERENCE UNITS LAB L300.4310 24.1-36.2 Seconds Normal PTT 34.8 Performed By: #### L300.3900, L300.4310 #### [facility] [address] [place], [address] BASIC METABOLIC Collected: 12/07/2017 Status: F Source: [place] PROFILE (BMP) 5:05 AM [facility] REPOSITORY TYPE CODE TESTS RESULT OUT OF RANGE REFERENCE UNITS LAB L501.0100 74-106 mg/dL Normal GLU 92 Result Comment: Please note revised GLUCOSE reference range effective 2017. LAB L501.1000 7-18 mg/dL High BUN 23 LAB L501.1100 0.70-1.30 mg/dL Normal CREAT,SERUM 1.19 Result Comment: The validity of the calculated GFR AND GFRAA in patients over 70 years has not been determined. Clinical correlation is essential. LAB L501.1110 >60 mL/min Normal EST GFR 62 Result Comment: Non- GFR Calc LAB L501.1115 >60 mL/min Normal EST GFR - AA 75 Result Comment: GFR Calc LAB L501.1255 ml/min Normal Estimated CRCL 47.10 LAB L501.1300 10-20 RATIO Normal BUN/CRE 19.3 LAB L501.2200 8.5-10 mg/dL Normal .1 CA 9.4 LAB L501.5300 136-14 mmol/L Normal 5 NA 144 LAB L501.5600 3.5-5. mmol/L Normal 1 K 3.6 LAB L501.5900 98-107 mmol/L Normal CL 107 LAB L501.6100 21.0-3 mmol/L Normal 2.0 CO2 28.0 LAB L501.6200 5-15 Normal GAP 9 Performed By: #### L500.2500 #### [facility] [address] [place], [place], [address] URINALYSIS, COMPLETE Collected: 12/07/2017 Status: F Source: [place] 3:33 AM [facility] REPOSITORY Order Comment: Order Date: 12/06/17 How was Urine Obtained? CLEAN CATCH TYPE CODE TESTS RESULT OUT OF RANGE REFERENCE UNITS LAB L400.3000 Yellow COLOR Normal Yellow LAB L400.3050 Clear Normal CLARITY Clear LAB L400.3200 Normal mg/dl Normal GLUCOSE, UR Normal LAB L400.3300 Negative mg/dL Normal BILIRUBIN URINE Negative LAB L400.3400 Negative mg/dl High 5 KETONE UR LAB L400.3465 1.002-1.030 Normal SP.GR. DIPSTX 1.010 LAB L400.3550 5.0 - 8.0 pH UR Normal 7.0 LAB L400.3600 Negative mg/dl High PROT 15 DIPSTX LAB L400.3700 Normal mg/dl Normal UROBILI Normal LAB L400.3750 Negative Normal NITRITE UR Negative LAB L400.3780 Negative /ul High 10 OCCULT BLOOD-UR LAB L400.3800 Negative /ul LEUK Normal ESTERASE Negative LAB L400.4050 0-5 /hpf WBC 0 Normal SEEN LAB L400.4100 0-5 /hpf 0 Normal RBC-UA SEEN LAB L400.4150 0-5 /hpf SQUAM 0 Normal EPI SEEN LAB L400.4300 None Seen /hpf 0 Normal BACTERIA SEEN LAB L400.4350 <or=2+ /hpf 0 Normal MUCUS, URINE SEEN Performed By: #### L400.0001 #### [facility] [address] [place], [address] STRESS REPORT Observed: 12/06/2017 Status: F Source: [place] 11:57 AM [facility] REPOSITORY [facility] Cardiovascular Services [address] [facility] [place] [address] MR#: [id number] Acct: [id number] Name: SHANTELL RIVERA Rep #: [id number] : 1935 82 From: Casey Leo MD Primary Care: Len TABOR,Jono Cannon Status: ADM IN Ordering Dr: Sex: [place] Staples Stress Test Report Pharmacologic myocardial perfusion stress test. 82-year-old man with a history of coronary artery disease who presents with congestive heart failure. Stress protocol: Resting EKG demonstrates atrial fibrillation with a rate of 110 bpm and T-wave inversions noted in lead V2 through the 5. 0.4 mg of regadenoson was infused per usual protocol followed by rapid intravenous saline flush injection continuous EKG monitoring was performed. The patient maintained atrial fibrillation throughout the recording with occasional ventricular paced beats. The maximum heart rate attained was 139 bpm which was 84% of maximum predicted heart rate the maximum workload was 1 metabolic equivalent. The resting blood pressure was 138/80 with a final blood pressure 108/62 mmHg. No clinical angina was noted. Myocardial perfusion protocol. 11.9 mCi of technetium 99m sestamibi was injected at rest. 0.4 mg of regadenoson was infused per usual protocol. At peak infusion 32.6 mCi of technetium 99m sestamibi was injected stress images were obtained stress and rest images were reconstructed and compared in the short axis vertical long and horizontal long axis. Gated images were also obtained. Perfusion SPECT analysis: Review of the stress images demonstrate normal uptake of tracer noted in the anterior wall septum as well as mid to distal inferior wall. The basal to mid inferior wall and inferolateral wall has a moderate perfusion defect. The resting images demonstrate mild amount of improvement in this suggesting a mild amount of sharon-infarct ischemia present. The basal inferior wall is noted to be fixed. Gated SPECT analysis: The gated ejection fraction is noted to be 51%. Conclusion: Mildly abnormal pharmacologic myocardial perfusion stress test with evidence of inferior basal infarct and mild sharon-infarct ischemia. Preserved ejection fraction. 12/06/17 1157 <Electronically signed by Casey Leo MD> Date Casey Leo MD CC: Johnson Roque DO; Jono Lamar MD Date Dictated: 12/06/17 1149 Date Transcribed: 12/06/17 114 Tipple Operator: CO Signed ECHOCARDIOGRAM COMPLETE Observed: 12/06/2017 Status: F Source: [place] 11:19 AM [facility] REPOSITORY [facility] Cardiovascular Services [address] [place] [address] Echo Complete 12/06/17 0752 MR#: [id number] Acct: [id number] Name: SHANTELL RIVERA Rep #: [id number] : 1935 82 From: Casey Leo MD Attending Dr: Johnson Roque DO Status: ADM IN Ordering Dr: Johnson Roque DO Date: 12/05/17 Location: U Sex: M C Admitted: 12/05/17 Reason For Study: CHF Procedure This was a 2D Doppler, Color Flow transthoracic echocardiogram. Exam performed portable in patient room. Left Ventricle Normal LV size. Left ventricular systolic function is normal. The estimated ejection fraction is 60 %. Unable to assess diastolic dysfunction due to arrhythmia. Compared to previous study, the left ventricular systolic function is the same.. Infero-Basal: Mildly hypokinetic. Right Ventricle Normal RV size. ICD or pacer leads identified within the right ventricle. Normal systolic function. Atria The left atrium is mildly enlarged. The right atrium is mildly enlarged. Mitral Valve There is moderate mitral annular calcification. Mild (1+) eccentric mitral valve insufficiency. Tricuspid Valve Normal tricuspid valve. Mild (1+) tricuspid valve insufficiency. Pulmonary artery systolic pressure is 34 mmHg. Aortic Valve Trisinus/trileaflet aortic valve. Mild focal aortic valve calcification. Pulmonic Valve Normal pulmonic valve. Mild (1+) pulmonic valve insufficiency. Great Vessels Normal aortic root. The pulmonary artery is normal size. Normal inferior vena cava. Pericardium/Pleural No pericardial effusion. MMode/2D Measurements AND Calculations LVIDd: 4.9 cm IVSd: 1.1 cm Ao root diam: 3.3 cm LVIDs: 3.9 cm LVPWd: 0.68 cm LA dimension: 4.1 cm RVDd: 4.0 cm FS: 20.2 % LAV(MOD-bp): 101.3 ml EDV(MOD-sp4): 48.7 ml EDV(MOD-sp2): 78.5 ml LAV(MOD-bp) Indexed: 55.2 ml/m2 ESV(MOD-sp4): 28.4 ml EF(MOD-sp2): 54.3 % LAV(MOD-sp2): 122.4 ml EF(MOD-sp4): 41.7 % LAV(MOD-sp4): 75.2 ml SV(MOD-sp4): 20.3 ml SV(MOD-sp2): 42.6 ml LA A4 area: 23.1 cm2 RA A4 area: 20.3 cm2 Doppler Measurements AND Calculations Ao V2 max: 117.6 cm/sec LV V1 max: 83.1 cm/sec PA V2 max: 79.0 cm/sec Ao max P.5 mmHg LV V1 max P.8 mmHg PI end-d shirlene: 176.8 cm/sec TR max shirlene: 280.1 cm/sec TR max P.4 mmHg Interpretation Summary Normal LV size. Left ventricular systolic function is normal. The estimated ejection fraction is 60 %. Unable to assess diastolic dysfunction due to arrhythmia. The left atrium is mildly enlarged. Mild (1+) eccentric mitral valve insufficiency. Mild focal aortic valve calcification. Compared to previous study, the left ventricular systolic function is the same.. Ordering Physician: Johnson Roque Referring Physician: JONO LAMAR CHI Performed By: Kristan Tinsley, RDCS, RVT 12/06/171117 Date Casey Leo MD CC: Johnson Roque DO; Jono Lamar MD Date Dictated: 12/06/17 0752 Date Transcribed: 12/06/171117 Tipple Operator: Signed BASIC METABOLIC Collected: 12/06/2017 Status: F Source: [place] PROFILE (BMP) 5:30 AM [facility] REPOSITORY TYPE CODE TESTS RESULT OUT OF RANGE REFERENCE UNITS LAB L501.0100 74-106 mg/dL Normal GLU 95 Result Comment: Please note revised GLUCOSE reference range effective 2017. LAB L501.1000 7-18 mg/dL High BUN 24 LAB L501.1100 0.70-1.30 mg/dL Normal CREAT,SERUM 1.12 Result Comment: The validity of the calculated GFR AND GFRAA in patients over 70 years has not been determined. Clinical correlation is essential. LAB L501.1110 >60 mL/min Normal EST GFR 67 Result Comment: Non- GFR Calc LAB L501.1115 >60 mL/min Normal EST GFR - AA 81 Result Comment: GFR Calc LAB L501.1255 ml/min Normal Estimated CRCL 50.04 LAB L501.1300 10-20 RATIO High BUN/CRE 21.4 LAB L501.2200 8.5-10 mg/dL Normal .1 CA 9.3 LAB L501.5300 136-14 mmol/L High 5 NA 146 LAB L501.5600 3.5-5. mmol/L Normal 1 K 3.6 LAB L501.5900 98-107 mmol/L Normal CL 107 LAB L501.6100 21.0-3 mmol/L Normal 2.0 CO2 26.0 LAB L501.6200 5-15 Normal GAP 13 Performed By: #### L500.2500 #### [facility] [address] [facility] [place], [place], [address] MAGNESIUM Collected: 12/06/2017 Status: F Source: [place] 1:30 AM [facility] REPOSITORY TYPE CODE TESTS RESULT OUT OF RANGE REFERENCE UNITS LAB L501.5200 1.6-2.6 mg/dL Normal MG 2.1 Performed By: #### L501.5200 #### [facility] [address] [place], [place], [address] TROPONIN-I Collected: 12/05/2017 Status: F Source: [place] 6:48 PM [facility] REPOSITORY Order Comment: 'TROP' Serial specimen #1, #2 or #3: 3 TYPE CODE TESTS RESULT OUT OF RANGE REFERENCE UNITS LAB L501.4010 <0.045 ng/mL Normal < 0.015 TROPONIN-I Result Comment: TROPONIN-I EXPECTED VALUES <0.045 Negative 0.045 - 0.590 Consistent with Cardiac Damage > OR = 0.600 Critical Value Not every elevated troponin is indicative of IL. These values should be used with clinical judgement in examining the patient's clinical picture for diagnosis. To establish a diagnosis of IL versus myocardial injury, there must be a demonstrated rise and/or fall in the troponin values, in addition to ischemic symptoms, EKG changes, new regional wall motion abnormality, and/or angiographical evidence. PLEASE NOTE: REFERENCE RANGES EDITED 17 Performed By: #### L501.4010 #### [facility] [address] [place], [address] HISTORY AND PHYSICAL Observed: 12/05/2017 Status: F Source: [place] EXAM 3:23 PM [facility] REPOSITORY [facility] Medical Records Department [address] [place] [address] History and Physical 12/05/17 1458 MR#: [id number] Acct: [id number] Name: SHANTELL RIVERA Rep #: [id number] : 1935 82 From: Dung FUENTES PCP: Len TABOR,Jono Chi Status: ADM IN Y [id number] <Dung Morel - Last Filed: 12/05/17 14:58> Problem List (1) CHF (congestive heart failure) Status: Acute (2) Chronic atrial fibrillation Status: Chronic (3) Kidney disease, chronic, stage III (GFR 30-59 ml/min) Status: Chronic (4) Hyperlipidemia Status: Chronic (5) Hypothyroidism Status: Chronic (6) Hypertension Status: Chronic (7) Cardiac pacemaker Status: Chronic Comment: Pacemaker implant June 2005; Pacemaker generator change 11/28/12; (8) S/P PTCA (percutaneous transluminal coronary angioplasty) Status: Chronic Comment: 02/20/98 PTCA to end stent restenosis of mid cx; 07/18/97 PTCA/stent of obtuse marginal AND distal CX; 09/13/97 Rotational atherectomy of CX; 09/25/97, 11/01/97 PTSC/stent of CX; PTCA with stenting of LAD02/21/03; History of Present Illness Date of Admission: 12/05/17 Chief Complaint: SOB The patient is a 82 year old M with a hx of chronic diastolic CHF, chronic Afib, CAD s/p double CABG and 4x stents, pt of Dr. Jeffers, HTN, HLD, hypothyroid, CKDIII, who presents to the ER with SOB. He was in the ER on Wednesday with increased SOB, was told to take additional lasix for [address] Jeffers in the office the next day. He did not improve at home. He progressively became more dyspneic especially with exertion, and especially when attempting to lay flat. He could not sleep because he was very SOB at night. He has had an occasional productive cough with phlegm. He has no fevers or chills. He has intermittent swelling of his BLE, L>R (always worse since CABG). He also has had intermittent CP the previous week. He states it is short stabbing pains in his middle and left sided anterior chest wall. No dizziness or LH. [] Past Medical History Past Medical History (Chronic Problems): Chronic Problems (Last Reviewed 12/05/17 @ 15:18 by Johnson Roque DO) Atherosclerosis of coronary artery of [place] heart without angina pectoris (Chronic) Chronic atrial fibrillation (Chronic) Encounter for long-term current use of high risk medication (Chronic) Abnormal result of cardiovascular function study (Chronic) Chronic diastolic (congestive) heart failure (Chronic) Atherosclerosis of coronary artery bypass graft without angina pectoris (Chronic) Paroxysmal atrial fibrillation (Chronic) Thyroid dysfunction (Chronic) Mild hyperthyroidism. Will order thyroid US and antibodies. Start on low dose tapazole. 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) CABG November 1997, ROMERO to LAD, SVG from aorta to ramus intermedius artery Coronary artery disease (Chronic) Sick sinus syndrome (Chronic) Kidney disease, chronic, stage III (GFR 30-59 ml/min) (Chronic) Hyperlipidemia (Chronic) Hypothyroidism (Chronic) Hypertension (Chronic) Afib (Chronic) Cardiac pacemaker (Chronic) Pacemaker implant June 2005; Pacemaker generator change 11/28/12; S/P PTCA (percutaneous transluminal coronary angioplasty) (Chronic) 02/20/98 PTCA to end stent restenosis of mid cx; 07/18/97 PTCA/stent of obtuse marginal AND distal CX; 09/13/97 Rotational atherectomy of CX; 09/25/97, 11/01/97 PTSC/stent of CX; PTCA with stenting of LAD02/21/03; Thyroid disease (Chronic) Medical History: Medical History (Last Reviewed 11/05/17 @ 11:04 by Maricarmen Blank) Coronary artery disease (Chronic) I25.10 Hypertension (Chronic) I10 Afib (Chronic) I48.91 Cardiac pacemaker (Chronic) Z95.0 Pacemaker implant June 2005; Pacemaker generator change 11/28/12; Afib I48.91 Anemia D64.9 Atrial flutter I48.92 CAD (coronary artery disease) I25.10 CHF (congestive heart failure) I50.9 Cardiomyopathy I42.9 Eyelid retraction unspecified eye, unspecified lid H02.539 Hyperlipidemia E78.5 Myocardial infarction I21.9 Orthostatic hypotension I95.1 Partial bowel obstruction K56.600 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 ureteral stent HTN (hypertension) I10 Allergies No Known Allergies Allergy (Verified 12/02/17 13:27) Home Medications: Ambulatory Orders Medication Instructions Recorded Aspirin [Aspirin, Baby] 81 mg PO DAILY@0800 #0 tab.chew 11/26/14 Surgical History: Surgical History (Last Reviewed 11/05/17 @ 11:04 by Maricarmen Blank) 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) Z95.1 CABG November 1997, ROMERO to LAD, SVG from aorta to ramus intermedius artery S/P PTCA (percutaneous transluminal coronary angioplasty) (Chronic) Z98.61 02/20/98 PTCA to end stent restenosis of mid cx; 07/18/97 PTCA/stent of obtuse marginal AND distal CX; 09/13/97 Rotational atherectomy of CX; 09/25/97, 11/01/97 PTSC/stent of CX; PTCA with stenting of LAD02/21/03; H/O hernia repair Z98.890, Z87.19 H/O myringoplasty Z98.890 Hx of CABG Z95.1 Hx of cholecystectomy Z98.890, Z90.49 Surgical History: cholecystectomy, coronary bypass surgery, herniorrhaphy, - - CABG 2, pacemaker, PCI 4, left shoulder surgery, tonsillectomy.laproscopic surgery of abd Psychiatric History: No pertinent psych hx Lives: Alone Smoking Status: Former smoker Drugs: None - *Family History Paternal Family History: Family History (Last Reviewed 11/05/17 @ 11:04 by Maricarmen Blank) Father Lung cancer CVA (cerebral vascular accident) Brother Sudden cardiac History Items: Cancer, - Maternal Family History: Family History (Last Reviewed 11/05/17 @ 11:04 by Maricarmen Blank) Father Lung cancer CVA (cerebral vascular accident) Brother Sudden cardiac History Items: - - according to her 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 Dyspnea. Denies: Palpitations Respiratory: Reports: Cough, Shortness of Breath, Shortness of breath at rest, Shortness of breath upon exertion, Sputum production Gastrointestinal: Denies: Abdominal Pain, Nausea, Vomiting Genitourinary: Denies: Dysuria Musculoskeletal: Denies: Joint Pain, Joint Tenderness Skin: Denies: Rash, Wounds Neurological: Denies: Numbness, Tingling, Focal weakness Psychiatric: Denies: Anxiety, Depression, Homicidal Ideations, Suicidal Ideations Hematologic/ Lymphatic: Denies: Easy Bruising, Easy Bleeding VTE Information - Inpt Only VTE Present on Admission: No VTE Mechan Device Prophylaxis: None VTE Pharm Prophylaxis ordered?: Yes Patient Problems: Active and Suspected Problems (Last Reviewed 12/05/17 @ 15:18 by Johnson Roque DO) CHF (congestive heart failure) (Acute) - Physical Exam General: Alert, Oriented x3, Cooperative HEENT: Atraumatic, PERRLA, EOMI, Normocephalic Neck: Supple, No JVD, Negative Carotid Bruits Lungs: Clear to auscultation, Diminished Cardiovascular: No murmurs, Irregular Rate, Tachycardic Abdomen: Bowel Sounds Present, Soft, Non Tender Extremities: No edema, Capillary Refill Less than 3 Seconds Skin: No rashes, No breakdown Musculoskeletal: No Tenderness to Palpation of Joints or Extremities Neurological: Cranial nerves II-XII grossly intact Psych/Mental Status: Normal Affect, Appropriate, Alert and oriented to time, place, person, mood and affect Vital Signs Temp Pulse Resp BP Pulse Ox 98.1 F 112 H 18 151/68 H 97 12/05/17 11:57 12/05/17 14:38 12/05/17 14:38 12/05/17 14:38 12/05/17 14:38 Assessment/Plan All Active Problems (Last Reviewed 12/05/17 @ 15:18 by Johnson Roque DO) CHF (congestive heart failure) (Acute) Hyperthyroidism (Acute) Partial bowel obstruction (Acute) 1. Acute diastolic CHF exacerbation - last echo EF 55%. Start IV lasix. Repeat Echo in AM. BNP elevated. CXR with COPD, minimal peripheral edema at this time, lungs are clear but diminished, not requiring additional O2. 2. Chest pain - new t wave inversions on EKG since july EKG. Negative troponin. Maintain on tele and cycle enzymes. Cardiology will be consulted. 3. CKD III - appears mildly above baseline. Repeat BMP in AM. 4. CAD - prior CABG, stents 5. Chronic Afib - not on OAC per cardiology office note this is 2/2 a hx of falls- continue beta seth , mildly tachy, has Pacemaker. 6. HLD - statin 7. HTN - stable 8. hyperthyroidism - on methimazole. DVT ppx: heparin DC planning: ptot, hx of falls. This patient was seen by Dung Morel PA-C under the supervision of Dr. Roque. <Johnson Roque - Last Filed: 12/05/17 15:23> Problem List (1) CHF (congestive heart failure) Status: Acute Qualifiers: Heart failure type: unspecified Heart failure chronicity: acute Qualified Code(s): I50.9 - Heart failure, unspecified History of Present Illness The patient is a 82 year old M persistent feeling of getting smothered. He describes orthopnea as a shortness of breath gets worse when he lies flat. Does complain of chest pain but is intermittent and not exertional. Once a cardiology office and on the and received Lasix but was not getting better and then came to the hospital. Patient had an elevated BNP but was not hypoxic. Chest x-ray shows some small pleural effusions in the bases. Patient received IV Lasix in the emergency room. He states that he is feeling better since that Lasix. Patient also does state that he is having some increasing lower extremity edema with his left leg being greater than his right given the previous venous harvesting. [] Past Medical History Medical History: Medical History (Last Reviewed 12/05/17 @ 15:18 by Johnson Roque DO) Coronary artery disease (Chronic) I25.10 Hypertension (Chronic) I10 Afib (Chronic) I48.91 Cardiac pacemaker (Chronic) Z95.0 Pacemaker implant June 2005; Pacemaker generator change 11/28/12; Afib I48.91 Anemia D64.9 Atrial flutter I48.92 CAD (coronary artery disease) I25.10 CHF (congestive heart failure) I50.9 Cardiomyopathy I42.9 Eyelid retraction unspecified eye, unspecified lid H02.539 Hyperlipidemia E78.5 Myocardial infarction I21.9 Orthostatic hypotension I95.1 Partial bowel obstruction K56.600 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 ureteral stent HTN (hypertension) I10 Allergies No Known Allergies Allergy (Verified 12/02/17 13:27) Surgical History: Surgical History (Last Reviewed 12/05/17 @ 15:18 by Johnson Roque DO) 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) Z95.1 CABG November 1997, ROMERO to LAD, SVG from aorta to ramus intermedius artery S/P PTCA (percutaneous transluminal coronary angioplasty) (Chronic) Z98.61 02/20/98 PTCA to end stent restenosis of mid cx; 07/18/97 PTCA/stent of obtuse marginal AND distal CX; 09/13/97 Rotational atherectomy of CX; 09/25/97, 11/01/97 PTSC/stent of CX; PTCA with stenting of LAD02/21/03; H/O hernia repair Z98.890, Z87.19 H/O myringoplasty Z98.890 Hx of CABG Z95.1 Hx of cholecystectomy Z98.890, Z90.49 Surgical History: cholecystectomy, coronary bypass surgery, herniorrhaphy, - Psychiatric History: No pertinent psych hx Lives: Alone Smoking Status: Former smoker Drugs: None - *Family History Paternal Family History: Family History (Last Reviewed 12/05/17 @ 15:18 by Johnson Roque DO) Father Lung cancer CVA (cerebral vascular accident) Brother Sudden cardiac Maternal Family History: Family History (Last Reviewed 12/05/17 @ 15:18 by Johnson Roque DO) Father Lung cancer CVA (cerebral vascular accident) Brother Sudden cardiac Review of Systems Constitutional: Denies: Chills, Fever, Weight Change HEENT: Denies: Head Aches, Sinus Congestion, Sinus Drainage Cardiovascular: Reports: Chest Pain, Edema, Orthopnea. Denies: Palpitations, Paroxysmal Noc. Dyspnea Respiratory: Reports: Cough, Shortness of Breath, Shortness of breath at rest, Shortness of breath upon exertion, Sputum production Gastrointestinal: Denies: Abdominal Pain, Nausea, Vomiting Genitourinary: Denies: Dysuria Musculoskeletal: Denies: Joint Pain, Joint Tenderness Skin: Denies: Rash, Wounds Neurological: Denies: Focal weakness, Numbness, Tingling Psychiatric: Denies: Anxiety, Depression, Homicidal Ideations, Suicidal Ideations Hematologic/ Lymphatic: Denies: Easy Bruising, Easy Bleeding Comment: All review of systems are negative except as mentioned in the history of present illness and the other review of systems. VTE Information - Inpt Only VTE Present on Admission: No VTE Mechan Device Prophylaxis: None VTE Pharm Prophylaxis ordered?: Yes - Physical Exam General: Alert, Cooperative, No apparent distress HEENT: Atraumatic, Normocephalic Neck: No JVD, No Nodes, Thyroid Normal Size and Texture Lungs: Clear to auscultation, Normal air movement, No rhonchi, No wheeze Cardiovascular: Regular rate, Regular Rhythm, Normal S1 Abdomen: Bowel Sounds Present, Soft, Non Tender, Non-Distended Extremities: No Calf Tenderness, - - Trace edema in bilateral lower extremities with left being slightly greater than the right. Skin: No rashes, No breakdown Neurological: Cranial nerves II-XII grossly intact, Neuro grossly intact Psych/Mental Status: Normal Affect, Appropriate Vital Signs Temp Pulse Resp BP Pulse Ox 36.7 C 112 H 18 151/68 H 97 12/05/17 11:57 12/05/17 14:38 12/05/17 14:38 12/05/17 14:38 12/05/17 14:38 Laboratory Results - last 24 hr Chest x-ray reviewed and showed some trace bilateral pleural effusions EKG showed sinus rhythm with some T-wave inversion in the inferior leads Assessment/Plan Patient seen and examined independently. Data reviewed. I agree with the above note by the physician inventory control assistant. 1. Acute heart failure with preserved ejection fraction * EF of 55% from 2015 * Continue with IV Lasix * Recheck echocardiogram * Fluid restriction 1500 cc per day * Cardiology consultation 2. Chest pain * Atypical * Cycle troponins * Cardiology consultation * Consider stress testing once patient further medically optimized from his heart failure 3. Hypothyroidism * Continue with methimazole * Check TSH 4. A. fib * Continue beta-seth * Not a candidate for oral anticoagulants given fall history Code Visit Inpatient E AND M: 21856 Init Hosp L3 12/05/17 1509 <Electronically signed by Dung FUENTES> Date Dung FUENTES 12/05/17 1523<Electronically signed by Johnson Roque DO> Cosigner Signature: Date (if applicable) Johnson Roque DO CC: ALFREDO Morel; Johnson Roque DO; Jono Lamar MD Signed EMERGENCY DEPARTMENT Observed: 12/05/2017 Status: F Source: [place] SUMMARY 2:23 PM [facility] Medical Records Department [address] [place] [address] Emergency Department Summary 12/05/17 1420 MR#: [id number] Acct: [id number] Name: SHANTELL RIVERA Rep #: [id number] : 1935 82 From: Beck Foote MD PCP: Len TABOR,Jono Cannon Status: REG ER - ER Visit Summary Date of Service: 12/05/17 Chief Complaint: Shortness of breath History of Present Illness: The patient is a 82 M who presents with shortness of breath. This is been present for 5 days. He was recently seen in the emergency [place]. At that time he was diagnosed with a mild CHF exacerbation was given diuretics and did see cardiology the next day. He states that his Lasix was doubled for the next 5 days. Despite this he continues to complain of shortness of breath with lying flat in particular. He is also had some chest tightness. Currently he is actually symptom-free. He has noticed some increased lower extremity edema as well. He denies chest pain fevers vomiting. Physical Examination: Afebrile vitals are stable No distress Heart regular rate and rhythm Lungs are clear without rales rhonchi wheezes Abdomen soft 1+ pitting symmetric lower extremity edema Test Results: EKG shows atrial fibrillation at a rate of 91 there are new or more pronounced T-wave inversions in the precordial leads. Labs notable for BUN 25, creatinine 1.47. Troponin is negative. BNP is 467.8 which is increased from recent labs despite increasing his diuretic. Emergency Department Course and Treatment: Patient currently denies any chest pain or shortness of breath. However he does complain of increasing edema and his BNP is higher than recent labs despite having recently doubled his diuretic. He also has EKG changes from prior. I do feel he will need admitted for IV diuresis. He was discussed with the hospitalist. Treatment Plan: [] Disposition: Admit Impression: HF exacerbation Acute EKG changes This note was generated with [employer] dictation software. It may contain incorrect words, spelling, and punctuation that were not noted in review of the chart prior to signing ED Disposition - Plan for ED Patient: Chief Complaint: Shortness of Breath Referrals: Jono Lamar Chi, MD [Primary Care Provider] - What to do if you have Problems For any increased pain, shortness of breath, bleeding, nausea or vomiting, chest pain, or any unexpected problems, contact your Primary Care Provider. Call [facility] ([phone]) or report to the closest Emergency Room. Call 911 if necessary. 12/05/17 1423 <Electronically signed by Beck Foote MD> Date Beck Foote MD Cosigner Signature (If Indicated): Date CC: Jono Lamar MD CBC W/DIFF, AUTOMATED Collected: 12/05/2017 Status: F Source: [place] 1:05 PM [facility] REPOSITORY TYPE CODE TESTS RESULT OUT OF RANGE REFERENCE UNITS LAB L100.1000 4.4-11.0 K/mm3 Normal WBC 5.6 LAB L100.1200 4.6-6.2 M/mm3 Low RBC 3.75 LAB L100.1300 13.0-16.5 g/dl Low HGB 11.2 LAB L100.1400 40-54 % Low HCT 34.1 LAB L100.1500 80-94 fL Normal MCV 90.9 LAB L100.1600 27.0-32.0 pg Normal MCH 29.9 LAB L100.1700 32-36 g/gl Normal MCHC 32.8 LAB L100.1810 11.6-14.6 % High RDW CV 14.9 LAB L100.1820 35.1-43.9 fl High RDW SD 49.6 LAB L100.1900 150-450 K/mm3 Normal PLT 166 LAB L100.2000 6.2-12.0 fl Normal MPV 9.7 LAB L100.2100 47-70 % Normal NEUT% 65.5 LAB L100.2200 19-41 % Normal LY% 22.9 LAB L100.2300 0-10 % Normal MONO% 9.6 LAB L100.2400 0-5 % Normal EO% 1.3 LAB L100.2500 0-1 % Normal BASO% 0.7 LAB L100.2550 0.0-0.9 % Normal IM GRAN % 0.000 Result Comment: IG% - Immature Granulocytes (promyelocytes, myelocytes and metamyelocytes) > 1% indicates that a LEFT SHIFT is Present. LAB L100.2620 2.0-7.7 X10 3/uL Normal Absolute Neut 3.7 LAB L100.2720 0.83-4.51 X10 3/ul Normal Absolute Lymph 1.28 Performed By: #### L100.0100 #### [facility] [address] [place], [address] BASIC METABOLIC Collected: 12/05/2017 Status: F Source: [place] PROFILE (BMP) 1:05 PM [facility] REPOSITORY TYPE CODE TESTS RESULT OUT OF RANGE REFERENCE UNITS LAB L501.0100 74-106 mg/dL High GLU 109 Result Comment: Fasting Glucose result from 100 to 125 mg/dL suggests IMPAIRED HOMEOSTASIS per A.D.A. criteria. Please note revised GLUCOSE reference range effective 2017. LAB L501.1000 7-18 mg/dL High BUN 25 LAB L501.1100 0.70-1.30 mg/dL High CREAT,SERUM 1.47 Result Comment: The validity of the calculated GFR AND GFRAA in patients over 70 years has not been determined. Clinical correlation is essential. LAB L501.1110 >60 mL/min Low EST GFR 49 Result Comment: Non- GFR Calc LAB L501.1115 >60 mL/min Low EST GFR - AA 59 Result Comment: GFR Calc LAB L501.1255 ml/min Normal Estimated CRCL 38.13 LAB L501.1300 10-20 RATIO Normal BUN/CRE 17.0 LAB L501.2200 8.5-10 mg/dL Normal .1 CA 9.0 LAB L501.5300 136-14 mmol/L High 5 NA 146 LAB L501.5600 3.5-5. mmol/L Normal 1 K 3.9 LAB L501.5900 98-107 mmol/L High CL 110 LAB L501.6100 21.0-3 mmol/L Normal 2.0 CO2 26.0 LAB L501.6200 5-15 Normal GAP 10 Performed By: #### L500.2500, L501.4010 #### [facility] [address] [facility]. [place], [place], [address] TROPONIN-I Collected: 12/05/2017 Status: F Source: [place] 1:05 PM [facility] REPOSITORY TYPE CODE TESTS RESULT OUT OF RANGE REFERENCE UNITS LAB L501.4010 <0.045 ng/mL Normal < 0.015 TROPONIN-I Result Comment: TROPONIN-I EXPECTED VALUES <0.045 Negative 0.045 - 0.590 Consistent with Cardiac Damage > OR = 0.600 Critical Value Not every elevated troponin is indicative of IL. These values should be used with clinical judgement in examining the patient's clinical picture for diagnosis. To establish a diagnosis of IL versus myocardial injury, there must be a demonstrated rise and/or fall in the troponin values, in addition to ischemic symptoms, EKG changes, new regional wall motion abnormality, and/or angiographical evidence. PLEASE NOTE: REFERENCE RANGES EDITED 17 Performed By: #### L500.2500, L501.4010 #### [facility] [address] [place], [address] BNP,B-TYPE NATRIURETIC Collected: 12/05/2017 Status: F Source: [place]IDE 1:05 PM [facility] REPOSITORY TYPE CODE TESTS RESULT OUT OF RANGE REFERENCE UNITS LAB L503.6620 0-100 pg/mL High B-TYPE 467.8 KATHERIN PEP Performed By: #### L503.6620 #### [facility] [address] [place], [address] THYROID STIM HORMONE Collected: 12/05/2017 Status: F Source: [place] (TSH) 1:05 PM [facility] REPOSITORY TYPE CODE TESTS RESULT OUT OF RANGE REFERENCE UNITS LAB L501.9520 0.358-3.74 uIU/mL Normal TSH 0.78 Performed By: #### L501.9520 #### [facility] [address] [place], [address] CHEST PA AND LATERAL Observed: 12/05/2017 Status: F Source: [place] 12:55 PM [facility] Imaging Services [address] [place] [address] Chest PA and Lateral MR#: [id number] Acct: [id number] Name: SHANTELL RIVERA Rep #: [id number] : 1935 M 82 From: George Kong DO PCP: Len TABOR,[employer] Status: REG ER Study: Chest PA and Lateral Date of Exam: 12/05/17 Exam# [id number] Ordering Dr: Beck Foote MD STUDY: X-RAY CHEST REASON FOR EXAM: Male, 82 years old. Chest pain TECHNIQUE: Single AP portable view of the chest. COMPARISON: 11/30/2017 FINDINGS: There is hyperinflation of the lungs consistent with chronic obstructive lung disease (COPD). Lungs are clear. Continued blunting of the left costophrenic angle. Stable left chest wall pacing device. 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 Mild cardiomegaly Normal mediastinum and jostin. Normal visualized pulmonary arteries. Normal visualized aortic arch and descending thoracic aorta. There are diffuse degenerative changes of the visualized thoracic spine. Normal visualized ribs, clavicles, and shoulders. There is no demonstrated abnormality of the visualized soft tissue structures of the upper abdomen. RAD/Chest PA and Lateral IMPRESSION: COPD with stable blunting of the bilateral costophrenic angles. No acute airspace disease. Electronically Signed: George Kong DO at 13:54 EDT Tel , Service support , CC: Beck Foote MD; Jono Lamar MD Tipple Operator: Signed DISCHARGE INSTRUCTION Observed: 11/30/2017 Status: F Source: [place] 9:09 PM [facility] Medical Records Department [address] [place] [address] Discharge Instruction 11/30/172107 MR#: [id number] Acct: [id number] Name: SHANTELL RIVERA Rep #: [id number] : 1935 82 From: Jimbo Catalan DO PCP: Jono Lamar MD, Chi Status: REG ER ED Disposition - Plan for ED Patient: Chief Complaint: Shortness of Breath Instructions: ED CHF General, ED Stress React Referrals: Jono Lamar Chi, MD [Primary Care Provider] - Jerry Jeffers MD [STAFF PHYSICIAN] - 3-5 Days What to do if you have Problems For any increased pain, shortness of breath, bleeding, nausea or vomiting, chest pain, or any unexpected problems, contact your Primary Care Provider. Call [facility] ([phone]) or report to the closest Emergency Room. Call 911 if necessary. 11/30/172108 <Electronically signed by Jimbo Catalan DO> Date Jimbo Catalan DO Cosigner Signature (If Indicated): Date CC: Jono Lamar MD EMERGENCY DEPARTMENT Observed: 11/30/2017 Status: F Source: [place] SUMMARY 9:08 PM [facility] Medical Records Department [address] [place] [address] Emergency Department Summary 11/30/172101 MR#: [id number] Acct: [id number] Name: SHANTELL RIVERA Rep #: [id number] : 1935 82 From: Jimbo Catalan DO PCP: Jono Lamar MD, Chi Status: REG ER - ER Visit Summary Date of Service: 11/30/17 Chief Complaint: [Shortness of breath] History of Present Illness: The patient is a 82 M [presents the emergency department complaint shortness of breath since yesterday. Patient states that seems to be worse at night when he is laying flat. Patient has a sleep propped up on several pillows. Patient denies any chest pain. Patient does have a history of atrial fibrillation CHF as well as hypertension and coronary artery disease. Patient denies recent travel or surgery. He denies fever or cough. Patient is wondering if his symptoms are related to anxiety.] Physical Examination: [HEENT-PERRLA, EOMI. Cranial nerves II through XII grossly intact. TMs clear. Mucous membranes moist. No adenopathy. Cardiovascular-irregularly irregular with 2 out of 6 systolic ejection murmur Lungs-clear to auscultation, chest wall stable without crepitus or subcu emphysema Abdomen-normoactive bowel sounds, soft, nontender, no rebound or rigidity, no peritoneal signs. Extremities-intact 4, normal range of motion, normal pulses, atraumatic]. Patient has +2 edema both lower extremities below the knee. Test Results: [EKG obtained on arrival showed us atrial fibrillation with ventricular rate 96 bpm with occasional ventricularly paced complexes. CBC with differential obtained showed a white count of 5.8, hemoglobin 11.7, hematocrit 36, platelets 191. Chemistries were normal. INR was 1.1. Troponin was less than 0.015. BNP was 338. D-dimer was 0.63 however when corrected for age its normal. Chest x-ray showed small left pleural effusion.] Emergency Department Course and Treatment: [I suspect patient's symptomatology likely due to slight fluid overload and patient was treated with 40 mg of Lasix IV. Patient is essentially asymptomatic and is not hypoxic. Feel patient can follow- up with his cad developer within next 3-5 days. Patient advised to minimize salt intake.] Treatment Plan: [Follow-up with cardiology within next 3-5 days] Disposition: [Discharged home in stable condition] Impression: [Dyspnea CHF Anxiety] This note was generated with [employer] dictation software. It may contain incorrect words, spelling, and punctuation that were not noted in review of the chart prior to signing ED Disposition - Plan for ED Patient: Chief Complaint: Shortness of Breath Referrals: Jono Lamar Chi, MD [Primary Care Provider] - What to do if you have Problems For any increased pain, shortness of breath, bleeding, nausea or vomiting, chest pain, or any unexpected problems, contact your Primary Care Provider. Call [facility] ([phone]) or report to the closest Emergency Room. Call 911 if necessary. 11/30/176 <Electronically signed by Jimbo Catalan DO> Date Jimbo Catalan DO Cosigner Signature (If Indicated): Date CC: Jono Lamar MD CHEST 1 VIEW Observed: 11/30/2017 Status: F Source: [place] (PORTABLE) 6:04 PM [facility] REPOSITORY [facility] Imaging Services [facility] [place] [place] [address] Chest 1 View (Portable) MR#: [id number] Acct: [id number] Name: SHANTELL RIVERA Rep #: [id number] : 1935 M 82 From: Fabien Parekh PCP: Jono Lamar MD, Chi Status: REG ER Study: Chest 1 View (Portable) Date of Exam: 11/30/17 Exam# [id number] Ordering Dr: Jimbo Catalan DO STUDY: X-RAY CHEST REASON FOR EXAM: Male, 82 years old. Chest pain TECHNIQUE: Single AP portable view of the chest. COMPARISON: 06/07/2017 FINDINGS: Left-sided pacemaker. The lungs are expanded. Blunted left costophrenic angle. There is no demonstrated pleural abnormality. Normal size heart. Patient status post sternotomy. Normal mediastinum and jostin. Normal visualized pulmonary arteries. Normal visualized aortic arch and descending thoracic aorta. Normal visualized thoracic spine. Normal visualized ribs, clavicles, and shoulders. There is no demonstrated abnormality of the visualized soft tissue structures of the upper abdomen. RAD/Chest 1 View (Portable) IMPRESSION: Left effusion. Left lower lung atelectasis/infiltrate. Electronically Signed: Fabien Parekh DO at 19:22 EDT , Service support , CC: Jimbo Catalan DO; Jono Lamar MD Tipple Operator: Signed CBC W/DIFF, AUTOMATED Collected: 11/30/2017 Status: F Source: [place] 5:20 PM [facility] REPOS[facility] TYPE CODE TESTS RESULT OUT OF RANGE REFERENCE UNITS LAB L100.1000 4.4-11.0 K/mm3 Normal WBC 5.8 LAB L100.1200 4.6-6.2 M/mm3 Low RBC 3.93 LAB L100.1300 13.0-16.5 g/dl Low HGB 11.7 LAB L100.1400 40-54 % Low HCT 36.2 LAB L100.1500 80-94 fL Normal MCV 92.1 LAB L100.1600 27.0-32.0 pg Normal MCH 29.8 LAB L100.1700 32-36 g/gl Normal MCHC 32.3 LAB L100.1810 11.6-14.6 % High RDW CV 14.9 LAB L100.1820 35.1-43.9 fl High RDW SD 50.4 LAB L100.1900 150-450 K/mm3 Normal PLT 191 LAB L100.2000 6.2-12.0 fl Normal MPV 10.1 LAB L100.2100 47-70 % Normal NEUT% 54.8 LAB L100.2200 19-41 % Normal LY% 32.6 LAB L100.2300 0-10 % Normal MONO% 10.0 LAB L100.2400 0-5 % Normal EO% 2.1 LAB L100.2500 0-1 % Normal BASO% 0.5 LAB L100.2550 0.0-0.9 % Normal IM GRAN % 0.000 Result Comment: IG% - Immature Granulocytes (promyelocytes, myelocytes and metamyelocytes) > 1% indicates that a LEFT SHIFT is Present. LAB L100.2620 2.0-7.7 X10 3/uL Normal Absolute Neut 3.2 LAB L100.2720 0.83-4.51 X10 3/ul Normal Absolute Lymph 1.89 Performed By: #### L100.0100 #### [facility] [address] [place], [address] BASIC METABOLIC Collected: 11/30/2017 Status: F Source: [place] PROFILE ([facility]) 5:20 PM [facility] RE[facility] TYPE CODE TESTS RESULT OUT OF RANGE REFERENCE UNITS LAB L501.0100 74-106 mg/dL Normal GLU 83 Result Comment: Please note revised GLUCOSE reference range effective 2017. LAB L501.1000 7-18 mg/dL High BUN 19 LAB L501.1100 0.70-1.30 mg/dL Normal CREAT,SERUM 1.22 Result Comment: The validity of the calculated GFR AND GFRAA in patients over 70 years has not been determined. Clinical correlation is essential. LAB L501.1110 >60 mL/min Normal EST GFR 61 Result Comment: Non- GFR Calc LAB L501.1115 >60 mL/min Normal EST GFR - AA 73 Result Comment: GFR Calc LAB L501.1255 ml/min Normal Estimated CRCL 45.94 LAB L501.1300 10-20 RATIO Normal BUN/CRE 15.6 LAB L501.2200 8.5-10 mg/dL Normal .1 CA 9.0 LAB L501.5300 136-14 mmol/L Normal 5 NA 144 LAB L501.5600 3.5-5. mmol/L Normal 1 K 4.3 LAB L501.5900 98-107 mmol/L High CL 110 LAB L501.6100 21.0-3 mmol/L Normal 2.0 CO2 28.0 LAB L501.6200 5-15 Normal GAP 6 Performed By: #### L500.2500, L501.4010 #### [facility] [address] [place], [place], [id number] TROPONIN-I Collected: 11/30/2017 Status: F Source: [place] 5:20 PM [facility] REPOS[facility] TYPE CODE TESTS RESULT OUT OF RANGE REFERENCE UNITS LAB L501.4010 <0.045 ng/mL Normal < 0.015 TROPONIN-I Result Comment: TROPONIN-I EXPECTED VALUES <0.045 Negative 0.045 - 0.590 Consistent with Cardiac Damage > OR = 0.600 Critical Value Not every elevated troponin is indicative of IL. These values should be used with clinical judgement in examining the patient's clinical picture for diagnosis. To establish a diagnosis of IL versus myocardial injury, there must be a demonstrated rise and/or fall in the troponin values, in addition to ischemic symptoms, EKG changes, new regional wall motion abnormality, and/or angiographical evidence. PLEASE NOTE: REFERENCE RANGES EDITED 17 Performed By: #### L500.2500, L501.4010 #### [facility] [address] [facility] [place], [place], [id number] PROTHROMBIN TIME W/INR Collected: 11/30/2017 Status: F Source: [place] 5:20 PM [facility] REPOS[facility] TYPE CODE TESTS RESULT OUT OF RANGE REFERENCE UNITS LAB L300.4150 11.7-14.9 SECONDS Normal PROTIME 14.1 LAB L300.4200 Normal INR 1.1 Performed By: #### L300.3900 #### [facility] [address] [place], [address] BNP,B-TYPE NATRIURETIC Collected: 11/30/2017 Status: F Source: [place] 5:20 PM [facility] REPOSITORY TYPE CODE TESTS RESULT OUT OF RANGE REFERENCE UNITS LAB L503.6620 0-100 pg/mL High B-TYPE 338.9 KATHERIN PEP Performed By: #### L503.6620 #### [facility] [address] [place], [address] D-DIMER QUANTITATIVE Collected: 11/30/2017 Status: F Source: [place] (DVT/PE) 5:00 PM [facility] REPOS[facility] TYPE CODE TESTS RESULT OUT OF RANGE REFERENCE UNITS LAB L300.8000 0.27-0.49 FEU/ug/m High alert D-DIMER 0.63 QUANT Result Comment: RESULTS CALLED TO TIANNA 11/30/17 Joseph Wellington. REPORT READ BACK BY SAME. D-Dimer ELEVATED (>0.49): Additional studies and clinical assessments are indicated to conclude diagnosis of: Deep Vein Thrombosis (DVT) or Pulmonary Embolism (PE) Performed By: #### L300.8000 #### [facility] [address] [place], [address] CARDIOLOGY VISIT Observed: 11/05/2017 Status: F Source: [place] REPORT 2:19 PM [facility] REPOSITORY [facility] [address] [place] [address] OFFICE VISIT Date of Service: 11/05/17 MR#: [id number] Acct: [id number] Name: SHANTELL RIVERA Rep #: [id number] : 1935 Provider: Trice Gaming Age/Sex: 82/M Location: [facility] Status: Signed HPI HPI Details: SHANTELL RIVERA is a 82 M who presents to the office today for a cardiovascular followup. He has a history of coronary artery disease with bypass surgery and subsequent angioplasty and stenting of his LAD. He also has a history of paroxysmal atrial fibrillation/flutter with flutter ablation and AV sequential pacemaker placed. He also has a history of orthostatic hypotension. Patient states since decreasing his metoprolol this has helped with his dizziness somewhat however he still notices it. He also states that since using his compression stockings this has helped with his lower extremity edema. He does try to keep his legs elevated more frequently as this also helps. He does not have any chest pain. He does not have any worsening shortness of breath. He does not have any syncope. Intake Vital Signs11/05/17 Height 5 ft 8 in 11/05/17 Weight: 166 lb 11/05/17 Body Mass Index (BMI) 25.2 11/05/17 Blood Pressure 105/65 Intake Visit Reasons: 6 wk FU Stacker Required: No Is patient in pain?: No Allergies No Known Allergies Allergy (Verified 11/05/17 11:04) Medications Aspirin [Aspirin, Baby] 81 mg PO DAILY@0800 #0 tab.chew 11/26/14 [Rx Confirmed 11/05/17] Ergocalciferol [Vitamin D] 50,000 unit PO QMONTH #0 cap 11/26/14 [Rx Confirmed 11/05/17] Finasteride [Proscar] 5 mg PO DAILY #30 tab 11/26/14 [Rx Confirmed 11/05/17] Folic Acid 1 mg PO DAILY@0800 #0 tab 11/26/14 [Rx Confirmed 11/05/17] Nitroglycerin [Nitrostat] 0.4 mg SUBLINGUAL Q5M PRN #1 bottle 11/26/14 [Rx Confirmed 11/05/17] Omeprazole [Prilosec] 20 mg PO DAILY 02/19/15 [History Confirmed 11/05/17] Rosuvastatin Calcium [Crestor] 40 mg PO DAILY 02/19/15 [History Confirmed 11/05/17] Lipo-Flavonoid Plus 2 tab PO BID 12/13/15 [History Confirmed 11/05/17] multivitamin tablet 1 tab PO QAM 04/08/17 [History Confirmed 11/05/17] Calcium Phosphate Trib/Vit D3 [Citracal + D3 Gummies] 1 ea PO DAILY 07/29/17 [History Confirmed 11/05/17] Tamsulosin HCl [Flomax] 0.4 mg PO DAILY 07/29/17 [History Confirmed 11/05/17] methimazole 5 mg tablet 5 mg PO .COMPLEX #12 tab 08/12/17 [Rx Confirmed 09/13/17] metoprolol succinate ER 25 mg tablet,extended release 24 hr 25 mg PO BID #60 tab 11/05/17 [Rx Confirmed 11/05/17] [facility] Medical History Coronary artery disease (Chronic) Hypertension (Chronic) Afib (Chronic) Cardiac pacemaker (Chronic) Afib (Acute) Anemia (Acute) Atrial flutter (Acute) CAD (coronary artery disease) (Acute) CHF (congestive heart failure) (Acute) Cardiomyopathy (Acute) Eyelid retraction unspecified eye, unspecified lid (Acute) Hyperlipidemia (Acute) Myocardial infarction (Acute) Orthostatic hypotension (Acute) Partial bowel obstruction (Acute) Presence of combination internal cardiac defibrillator (ICD) and pacemaker (Acute) small fiber autonomic neuropathy (Acute) ureteral stent (Acute) HTN (hypertension) (Chronic) Surgical History 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) S/P PTCA (percutaneous transluminal coronary angioplasty) (Chronic) H/O hernia repair (Acute) H/O myringoplasty (Acute) Hx of CABG (Acute) Hx of cholecystectomy (Acute) Family History Father Lung cancer CVA (cerebral vascular accident) Brother Sudden cardiac Social History Smoking Status: Former smoker alcohol intake: never substance use type: does not use ROS Const Const: Negative for weakness, fatigue, fever(s) or headache(s) Eyes Eyes: Negative for blind spots, loss of peripheral vision or transient loss of vision ENT ENT: Positive for dizziness; negative for headache(s), tinnitus or Nosebleed/epistaxis Cardio Chest Pain: No Palpitations: No Edema: Bilateral Resp Respiratory: Negative for SOB with activity, SOB at rest, SOB orthopnea\SOB lying down or Cough GI GI: Negative nausea, vomiting, heartburn or vomiting blood/hematemesis : Negative for hematuria Musc Musc: Negative for muscle aches/ myalgia Neuro Neuro: Positive for dizziness and orthostatic symptoms; negative for weakness, headache(s), near syncope, syncope or lightheadedness Parvez Hematologic/Lymphatic: Negative for easy bleeding Endo Endo: Negative for fatigue Cardiology Exam Const Appearance: cooperative, no acute distress and well developed Orientation: alert, awake and oriented x3 Head Head: normocephalic and atraumatic Mouth: moist mucous membranes Eyes General: appearance normal, both eyes and all related structures Conjunctivae: conjunctivae normal Pupils: PERRL EOM: EOM intact bilaterally Neck Neck: normal visual inspection, no lymphadenopathy and no JVD Carotids: Negative bruit Neck Mass: Negative Neck mass Chest Chest inspection: normal inspection of the chest, symmetric chest movement, midline sternotomy incision and Pacemaker/ICD Yes left pectoral incision Auscultation: Bilateral: Clear to Auscultation Cardio Palpation: normal PMI Rate: regular rate Rhythm: regular rhythm Heart sounds: S1 normal and S2 normal; negative rub, gallop or murmur GI GI: normal to inspection, soft, no hepatosplenomegaly and bowel sounds present; negative tender Neuro General: alert, awake, oriented x3, CN's II-XI intact bilaterally and moves all extremities Extremities Pulses: Normal: Right Posterior Tibial Pulse, Left Posterior Tibial Pulse, Right Radial Pulse, Left Radial Pulse Lower Extremity Edema: +2: Bilateral Psych Psychological: normal affect Supplemental Info In January of 2015, Patient had an abnormal pharmacologic nuclear stress test. He did undergo a diagnostic heart catheterization which demonstrated left ventricular end-diastolic pressure compatible with decreased diastolic compliance. Regional wall motion abnormalities with overall preserved ejection fraction was noted. Coronary artery demonstrates angiographically significant appearing coronary artery disease. Graft angiography demonstrates the SVG to the diagonal to be patent, ROMERO to the LAD small icteric and nonfunctional. Valvular interrogation suggested mitral annular calcification with mild to moderate mitral regurgitation. It was recommended that he continue with aggressive medical management. Assessment AND Plan 1. Atherosclerosis of [place] coronary artery of [place] heart without angina pectoris I25.10 Plan Stable, from a cardiac standpoint patient does not have any symptoms of angina. We recommend that they continue with current aggressive medical management and risk factor modification. 2. Chronic atrial fibrillation I48.2 Plan Patient's rate is controlled. With his symptoms of orthostatic hypotension will adjust his metoprolol to 25 mg twice a day instead of 50 mg once a day. He is not anticoagulated due to his history of falls. He will continue with his aspirin therapy. 3. Essential hypertension I10 Plan There are adjusting his metoprolol to 25 mg twice a day. We will continue to monitor. 4. Pure hypercholesterolemia E78.00; E78.0 Plan These have been managed by his primary care doctor. 5. Cardiac pacemaker Z95.0 Pacemaker implant June 2005; Pacemaker generator change 11/28/12; Plan Pacemaker is functioning appropriately. We will continue to monitor at routine scheduled pacemaker interrogations. Plan Detail Other Medications Changed: Additional Comments Thank you for allowing us to participate in patient's plan of care, if you have any questions please do not hesitate to call. This note was generated using a voice recognition system and there may be incorrect words, spelling or punctuation errors that were not noted when reviewing the office note prior to saving. Follow Up 6 Months (MMM) Coding Level of Care Code Off vis,est,level 3 Diagnoses Atherosclerosis of [place] coronary artery of [place] heart without angina pectoris I25.10 Coronary Disease-Associated Artery/Lesion type: [place] artery Chronic atrial fibrillation I48.2 Essential hypertension I10 Hypertension type: essential hypertension Pure hypercholesterolemia E78.00; E78.0 Hyperlipidemia type: pure hypercholesterolemia Cardiac pacemaker Z95.0 Coding Level of Care Code Off vis,est,level 3 Diagnoses Atherosclerosis of [place] coronary artery of [place] heart without angina pectoris I25.10 Coronary Disease-Associated Artery/Lesion type: [place] artery Chronic atrial fibrillation I48.2 Essential hypertension I10 Hypertension type: essential hypertension Pure hypercholesterolemia E78.00; E78.0 Hyperlipidemia type: pure hypercholesterolemia Cardiac pacemaker Z95.0 11/05/17 1419 <Electronically signed by Trice FUENTES> Date Trice FUENTES Cosigner Signature: Date (if applicable) CC: Jono Lamar MD Observed: 11/04/2017 Status: F Source: [place] CULTURE, URINE 11:00 AM [facility] REPOSIT[facility] Urine Culture Below infection level. ORGANISM 1: Mixed Gram Positive Organisms Gary Count <1000 Performed By: #### M100.0650 #### [place] [facility] [address], [address] PACEMAKER CHECK Observed: 11/03/2017 Status: F Source: [place] 4:58 PM [facility] REPOSIT[facility] [address] [place] [address] Pacemaker Check Date of Service: 11/03/171616 MR#: [id number] Acct: [id number] Name: SHANTELL RIVERA Rep #: [id number] : 1935 From: Daxa Madison Age/Sex: 82/M Location: [email or web address] Status: Signed Billing Codes PM Device Codes: PM Dev Prog Eval, Dual 11/03/17 1619 <Electronically signed by Daxa Madison > Date Daxa Madison 11/03/17 1658<Electronically signed by Jerry Jeffers MD> Cosigner Signature: Date (if applicable) Jerry Jeffers MD CC: OFFICE VISIT REPORT Observed: 09/20/2017 Status: F Source: [place] 11:29 AM [facility] REPOSIT[facility] [place] [address] OFFICE VISIT Date of Service: 09/13/17 MR#: [id number] Acct: [id number] Patient: SHANTELL RIVERA Rep #: [id number] : 1935 Provider: Camryn Zayas NP Age/Sex: 82/M Location: [facility] Status: Signed Intake Vital Signs09/13/17 Height 5 ft 8 in 09/13/17 Weight: 167 lb 8 oz 09/13/17 Body Mass Index (BMI) 25.4 09/13/17 Blood Pressure 102/63 09/13/17 Blood Pressure Location Lt popliteal Intake Visit Reasons: 1 MO FU THYROID DYSFUNCTION Stacker Required: No Accompanied by: Self Is patient in pain?: No Allergies No Known Allergies Allergy (Verified 09/13/17 10:29) Medications Aspirin [Aspirin, Baby] 81 mg PO DAILY@0800 #0 tab.chew 11/26/14 [Rx Confirmed 09/13/17] Ergocalciferol [Vitamin D] 50,000 unit PO QMONTH #0 cap 11/26/14 [Rx Confirmed 09/13/17] Finasteride [Proscar] 5 mg PO DAILY #30 tab 11/26/14 [Rx Confirmed 09/13/17] Folic Acid 1 mg PO DAILY@0800 #0 tab 11/26/14 [Rx Confirmed 09/13/17] Nitroglycerin [Nitrostat] 0.4 mg SUBLINGUAL Q5M PRN #1 bottle 11/26/14 [Rx Confirmed 09/13/17] Omeprazole [Prilosec] 20 mg PO DAILY 02/19/15 [History Confirmed 09/13/17] Rosuvastatin Calcium [Crestor] 40 mg PO DAILY 02/19/15 [History Confirmed 09/13/17] Gabapentin [Neurontin] 300 mg PO QHS 08/17/15 [History Confirmed 09/13/17] Lipo-Flavonoid Plus 2 tab PO BID 12/13/15 [History Confirmed 09/13/17] imipramine 25 mg tablet 25 mg PO DAILY 04/08/17 [History Confirmed 09/13/17] multivitamin tablet 1 tab PO QAM 04/08/17 [History Confirmed 09/13/17] Calcium Phosphate Trib/Vit D3 [Citracal + D3 Gummies] 1 ea PO DAILY 07/29/17 [History Confirmed 09/13/17] Tamsulosin HCl [Flomax] 0.4 mg PO DAILY 07/29/17 [History Confirmed 09/13/17] metoprolol succinate ER 50 mg tablet,extended release 24 hr 50 mg PO BID #60 tab 08/06/17 [Rx Confirmed 09/13/17] methimazole 5 mg tablet 5 mg PO .COMPLEX #12 tab 08/12/17 [Rx Confirmed 09/13/17] [facility] Medical History Coronary artery disease (Chronic) Hypertension (Chronic) Afib (Chronic) Cardiac pacemaker (Chronic) Afib (Acute) Anemia (Acute) Atrial flutter (Acute) CAD (coronary artery disease) (Acute) CHF (congestive heart failure) (Acute) Cardiomyopathy (Acute) Eyelid retraction unspecified eye, unspecified lid (Acute) Hyperlipidemia (Acute) Myocardial infarction (Acute) Orthostatic hypotension (Acute) Partial bowel obstruction (Acute) Presence of combination internal cardiac defibrillator (ICD) and pacemaker (Acute) small fiber autonomic neuropathy (Acute) ureteral stent (Acute) HTN (hypertension) (Chronic) Surgical History 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) S/P PTCA (percutaneous transluminal coronary angioplasty) (Chronic) H/O hernia repair (Acute) H/O myringoplasty (Acute) Hx of CABG (Acute) Hx of cholecystectomy (Acute) Family History Father Lung cancer CVA (cerebral vascular accident) Brother Sudden cardiac Social History Smoking Status: Former smoker alcohol intake: never substance use type: does not use HPI HPI Details: SHANTELL RIVERA, is a 82 M who presents to the office today for follow up of hyperthyroidism. He is currently on tapazole 5mg twice weekly. He denies sore throat or fever. Reports he is taking as directed. He does complain of tiredness but he states it is same as before starting medication. Severity, modifying factors, context, and associated signs and symptoms are as follows: Thyroid pain: No Energy: Reduced Sleep: Not awakened refreshed Temp: No intolerance GI: Normal bowel Weight: Flucuates Eyes: No change in vision Memory: unchanged Diaphoresis: Not significant Skin: Dry Hair : Unchanged Neuro: No numbness, tingling or tremors At time of visit: -Pt denies symptoms of hypertensive emergency (CP,SOB,LAZO, or blurred vision) and hypotension(dizziness or lightheadedness) -Pt denies symptoms of hypoglycemia ( sweaty, confusion, anxiety, tremor, hunger, palpitations) and hyperglycemia ( polydipsia, polyuria) -Pt denies potential medication adverse effect. Does have hx of SOB with exertion Has pacemaker Exam Const General: healthy appearing, comfortable, well groomed Nutritional Appearance: average body habitus Orientation: oriented x3 HENMT Head: normal to inspection, atraumatic Ears: external ears normal Nose: no nasal discharge Mouth: oral mucosae normal, moist mucous membranes Eyes General: appearance normal, both eyes and all related structures Conjunctivae: conjunctivae normal Sclera: sclerae normal Pupils: PERRL Neck Neck: normal visual inspection Neck mass: small nodule right lobe. Chest Chest palpation AND inspection: deferred Resp Effort AND Inspection: normal respiratory effort, symmetric chest movement, able to speak in complete sentences Auscultation: Bilateral: Clear to Auscultation Cardio Rate: regular rate Rhythm: regular rhythm Heart Sounds: S1 normal, S2 normal Other: Recheck of pulse rate 88. GI Inspection: normal to inspection Auscultation: normal bowel sounds Palpation: soft, no guarding General: deferred Musc Musculoskeletal: No muscle weakness Skin General: no rashes or lesions noted Wounds: no wounds Neuro General: moves all extremities Cognition: normal cognition Gait: normal gait Motor: muscle tone normal throughout Extrem General: normal to inspection, normal gait Psych Mental Status: mental status grossly normal Affect: normal affect Speech and Movement: speech and movement normal Attitude: cooperative Thought Process: normal Judgment: judgment good ROS Const Constitutional: Positive for fatigue; no anorexia, body ache, chills, fever(s), frequent falls, decreased energy, malaise, night sweats, weakness, weight change, sleep problems, abnormal sleep pattern, change in appetite, other, headache(s), snoring or excessive sweating Eyes Eyes: No blurry vision, change in vision, double vision, discharge, dry eyes, bulging eyes, floaters, visual disturbances, eye pain, light sensitivity, spots in vision, tunnel vision or other ENT ENT: No abnormal hearing, ear pain, ear discharge, ear pressure, hearing loss, tinnitus, dizziness/vertigo, balance problems, nosebleed/epistaxis, nasal congestion, nasal obstruction, nose pain, sinus pressure, sinus pain, nasal discharge, post nasal drip, headache(s), facial pain, dental pain, dry mouth, bad breath, hoarseness, lip swelling, mouth lesions, mouth pain, sore throat, tongue swelling, throat swelling, other, difficulty swallowing or neck pain Resp Respiratory: Positive for shortness of breath; no cough, change in phlegm color, chest congestion, excessive phlegm production, hemoptysis, pain on inspiration, pain with cough, snoring, stridor, wheezing or other Cardio Cardiology: Positive for generalized swelling and lightheadedness; no chest pain at rest, chest pain with exertion, leg pain with exertion, excessive sweating, shortness of breath, dyspnea on exertion, irregular heart rhythm, orthopnea, radiating jaw, neck or arm pain, fast heart rate, slow heart rate, palpitations or other Gastro GI: No abdominal pain, belching, bloating, change in bowel habits, change in stool character, coffee ground emesis, constipation, cramping, diarrhea, heartburn, difficulty swallowing, feeling full early, excessive flatus, incontinent of stools, Vomiting blood/hematemesis, blood in stool, loose stools, Black,tarry stools, nausea/dyspepsia, pain with swallowing, vomiting or other Genitourinary Male: No difficulty urinating, burning urination, painful urination, urinary incontinence, urinary frequency, urinary urgency, urinary hesitancy, urinary retention, blood in urine, Frequent nighttime urination/ nocturia, post void dribbling, suprapubic fullness, side pain, sexual problems, genital lesions, genital itching, erectile dysfunction, penile discharge, difficulty with ejaculations, blood in semen, scrotal swelling, testicle lump, testicle pain or other Musc Musculoskeletal: No abnormal walking, joint pain, back pain, deformity, joint swelling, limited range of motion, loss of height, muscle cramps, muscle weakness, decreased muscle mass, body aches, neck pain, numbness, radiating pain into limb, stiffness, tingling or other Skin Skin: Positive for dry skin; no acne, hair loss, change in hair, nail changes, boil, change in skin color, redness, excessive hair growth, yellowing of the skin, lesions, itching, rash, skin pain, skin ulcer, sores, skin swelling, wounds or other Breast Breast: No other Neuro Neurology: No frequent falls, weakness, visual disturbances, abnormal hearing, headache(s), abnormal walking, numbness or tingling Psych Psychiatric: No abnormal sleep pattern, No change in appetite Endo Endocrine: Positive for fatigue; no other or excessive sweating Aller/Imm Allergy/Immunologic: No lip swelling, tongue swelling, throat swelling, wheezing or itchy eyes Exam Musc Musculoskeletal: No muscle weakness Assessment AND Plan Problems 1. Hyperthyroidism E05. Orders Orders: Coding Level of Care Code Off vis,est,level 3 Diagnoses Hyperthyroidism E05.90 09/20/17 1129 <Electronically signed by Camryn J Shook PLASTICS SEASONER OPERATOR-C> Date Camryn Zayas PLASTICS SEASONER OPERATOR-C Cosigner Signature: Date (if applicable) CC: CBC W/DIFF, AUTOMATED Collected: 09/13/2017 Status: F Source: [place] 11:17 AM [facility] REPOSITORY TYPE CODE TESTS RESULT OUT OF RANGE REFERENCE UNITS LAB L100.1000 4.4-11.0 K/mm3 Normal WBC 8.5 LAB L100.1200 4.6-6.2 M/mm3 Low RBC 4.09 LAB L100.1300 13.0-16.5 g/dl Low HGB 12.0 LAB L100.1400 40-54 % Low HCT 37.3 LAB L100.1500 80-94 fL Normal MCV 91.2 LAB L100.1600 27.0-32.0 pg Normal MCH 29.3 LAB L100.1700 32-36 g/gl Normal MCHC 32.2 LAB L100.1810 11.6-14.6 % High RDW CV 14.9 LAB L100.1820 35.1-43.9 fl High RDW SD 48.7 LAB L100.1900 150-450 K/mm3 Normal PLT 203 LAB L100.2000 6.2-12.0 fl Normal MPV 10.8 LAB L100.2100 47-70 % High NEUT% 73.2 LAB L100.2200 19-41 % Low LY% 15.9 LAB L100.2300 0-10 % Normal MONO% 8.7 LAB L100.2400 0-5 % Normal EO% 1.5 LAB L100.2500 0-1 % Normal BASO% 0.5 LAB L100.2550 0.0-0.9 % Normal IM GRAN % 0.200 Result Comment: IG% - Immature Granulocytes (promyelocytes, myelocytes and metamyelocytes) > 1% indicates that a LEFT SHIFT is Present. LAB L100.2620 2.0-7.7 X10 3/uL Normal Absolute Neut 6.2 LAB L100.2720 0.83-4.51 X10 3/ul Normal Absolute Lymph 1.35 Performed By: #### L100.0100 #### [facility] [address] [place], [address] FREE T3 Collected: 09/13/2017 Status: F Source: [place]NA 11:17 AM [facility] REPOSITORY TYPE CODE TESTS RESULT OUT OF RANGE REFERENCE UNITS LAB L501.27244 2.18-3.98 pg/mL Normal FREE T3 3.3 Performed By: #### L501.01892, L501.9520, L506.0400 #### [facility] [address] [place], [address] THYROID STIM HORMONE Collected: 09/13/2017 Status: F Source: [place] (TSH) 11:17 AM [facility] REPOSITORY TYPE CODE TESTS RESULT OUT OF RANGE REFERENCE UNITS LAB L501.9520 0.358-3.74 uIU/mL Normal TSH 0.56 Performed By: #### L501.73720, L501.9520, L506.0400 #### [facility] [address] [place], [address] T4 FREE DIRECT Collected: 09/13/2017 Status: F Source: [place]NA 11:17 AM [facility] REPOSITORY TYPE CODE TESTS RESULT OUT OF RANGE REFERENCE UNITS LAB L506.0400 0.76-1.46 ng/dL Normal T4 FREE 1.13 DIRECT Performed By: #### L501.23194, L501.9520, L506.0400 #### [facility] [address] [place], [address] MISCELLANEOUS LAB Collected: 09/07/2017 Status: F Source: [place]NA PROCEDURE 9:40 AM [facility] REPOSITORY Order Comment: Comments: [id number] TYROID RECEPTOR AB SERUM RF Comments: Please draw thyroid receptor antibodies Test(s) Ordered: [id number] TYROID RECEPTOR AB SERUM RF TYPE CODE TESTS RESULT OUT OF RANGE REFERENCE UNITS LAB L801.1541 Normal [facility] LAB TEST Result Comment: TEST RESULT LIMITS Thyrotropin Receptor Ab, Serum 1.81 High IU/L 0.00 - 1.75 TESTING PERFORMED AT [facility]. ORIGINAL REPORT ON FILE IN LAB CONTAINS ADDITIONAL TEST SITE INFORMATION. Performed By: #### L801.1541 #### [facility] [address] [place], [address] THYROID STIM HORMONE Collected: 08/19/2017 Status: F Source: [place] (TSH) 10:54 AM [facility] REPOSITORY Order Comment: Send Results To: [facility] Reason for Laboratory Test follow-up on subclinical hyperthyroidism TYPE CODE TESTS RESULT OUT OF RANGE REFERENCE UNITS LAB L501.9520 0.358-3.74 uIU/mL Low TSH 0.24 Performed By: #### L501.9520 #### [facility] [address] [place], [address] THYROID Observed: 08/19/2017 Status: F Source: [place] 12:01 AM [facility] REPOSITORY [facility] Imaging Services [address] [place] [address] Thyroid MR#: [id number] Acct: [id number] Name: SHANTELL RIVERA Rep #: [id number] : 1935 M 82 From: Brisa Humphreys MD PCP: Jono Lamar MD, Chi Status: REG CLI Study: Thyroid Date of Exam: 08/19/17 Exam# [id number] Ordering Dr: Camryn Zayas PLASTICS SEASONER OPERATOR-C STUDY: THYROID ULTRASOUND REASON FOR EXAM: Male, 82 years old. Hyperthyroidism TECHNIQUE: Transverse and longitudinal ultrasound evaluation of the thyroid was performed with real-time and static doss-scale imaging. COMPARISON: None. FINDINGS: RIGHT LOBE: The right lobe of the thyroid gland measures 4.1 x 2.5 x 1.6 cm. There is a homogeneous echotexture. There is a small hypoechoic focus in the midpole measuring 6.5 x 7.3 x 7.3 mm. LEFT LOBE: The left lobe of the thyroid gland measures 3.9 x 2.3 x 1.5 cm. There is a homogeneous echotexture. There are no demonstrated solid, cystic or complex lesions. ISTHMUS: The isthmus measures 3.0 mm. The regional lymph nodes are unremarkable. US/Thyroid IMPRESSION: The thyroid is normal in size and echogenicity. There is a small nodule in the mid pole of the right lobe measuring 7 mm and showing no suspicious features. A six month follow-up ultrasound can be obtained. Electronically Signed: Brisa Humphreys MD at 18:27 EDT Tel Direct: [phone], Service support , CC: Camryn Zayas NP; Jono Lamar MD Tipple Operator: Signed OFFICE VISIT REPORT Observed: 08/16/2017 Status: F Source: [place] 9:[address] [place] [address] OFFICE VISIT Date of Service: 08/12/17 MR#: [id number] Acct: [id number] Patient: SHANTELL RIVERA Rep #: [id number] : 1935 Provider: Camryn Zayas NP Age/Sex: 82/M Location: [facility] [place] Status: Signed Intake Vital Signs08/12/17 Height 5 ft 8 in 08/12/17 Weight: 173 lb 2 oz 08/12/17 Body Mass Index (BMI) 26.3 08/12/17 Blood Pressure 120/76 08/12/17 Blood Pressure Location Lt popliteal Intake Visit Reasons: Thyroid dysfunction Stacker Required: No Accompanied by: Self Is patient in pain?: No Allergies No Known Allergies Allergy (Verified 08/12/17 10:32) Medications Aspirin [Aspirin, Baby] 81 mg PO DAILY@0800 #0 tab.chew 11/26/14 [Rx Confirmed 08/12/17] Ergocalciferol [Vitamin D] 50,000 unit PO QMONTH #0 cap 11/26/14 [Rx Confirmed 08/12/17] Finasteride [Proscar] 5 mg PO DAILY #30 tab 11/26/14 [Rx Confirmed 08/12/17] Folic Acid 1 mg PO DAILY@0800 #0 tab 11/26/14 [Rx Confirmed 08/12/17] Nitroglycerin [Nitrostat] 0.4 mg SUBLINGUAL Q5M PRN #1 bottle 11/26/14 [Rx Confirmed 08/12/17] Omeprazole [Prilosec] 20 mg PO DAILY 02/19/15 [History Confirmed 08/12/17] Rosuvastatin Calcium [Crestor] 40 mg PO DAILY 02/19/15 [History Confirmed 08/12/17] Gabapentin [Neurontin] 300 mg PO QHS 08/17/15 [History Confirmed 08/12/17] Lipo-Flavonoid Plus 2 tab PO BID 12/13/15 [History Confirmed 08/12/17] imipramine 25 mg tablet 25 mg PO DAILY 04/08/17 [History Confirmed 08/12/17] multivitamin tablet 1 tab PO QAM 04/08/17 [History Confirmed 08/12/17] Calcium Phosphate Trib/Vit D3 [Citracal + D3 Gummies] 1 ea PO DAILY 07/29/17 [History Confirmed 08/12/17] Tamsulosin HCl [Flomax] 0.4 mg PO DAILY 07/29/17 [History Confirmed 08/12/17] metoprolol succinate ER 50 mg tablet,extended release 24 hr 50 mg PO BID #60 tab 08/06/17 [Rx Confirmed 08/12/17] methimazole 5 mg tablet 5 mg PO .COMPLEX #12 tab 08/12/17 [Rx Confirmed 08/12/17] PFSH Medical History Afib (Acute) Anemia (Acute) Atrial flutter (Acute) CAD (coronary artery disease) (Acute) CHF (congestive heart failure) (Acute) Cardiomyopathy (Acute) Eyelid retraction unspecified eye, unspecified lid (Acute) Hyperlipidemia (Acute) Myocardial infarction (Acute) Orthostatic hypotension (Acute) Partial bowel obstruction (Acute) Presence of combination internal cardiac defibrillator (ICD) and pacemaker (Acute) small fiber autonomic neuropathy (Acute) ureteral stent (Acute) HTN (hypertension) (Chronic) Surgical History H/O hernia repair (Acute) H/O myringoplasty (Acute) Hx of CABG (Acute) Hx of cholecystectomy (Acute) Family History Father Lung cancer CVA (cerebral vascular accident) Brother Sudden cardiac Social History Smoking Status: Former smoker alcohol intake: never substance use type: does not use HPI HPI Details: SHANTELL RIVERA, is a 82 M who presents to the office today for follow up of thyroid. Reports overall he has some sense of less energy. Has completed lab for this appointment. TSH 0.17 Free T3 3.0 Free T4 1.33 Severity, modifying factors, context, and associated signs and symptoms are as follows: Thyroid pain: No Energy: Reduced Sleep: awakened refreshed Temp: No intolerance GI: Normal bowel Weight: Flucuates Eyes: No change in vision Memory: unchanged Diaphoresis: Not significant Skin: Dry Hair : Unchanged Neuro: No numbness, tingling or tremors No difficulty swallowing Exam Const General: healthy appearing, comfortable, well groomed Nutritional Appearance: average body habitus Orientation: oriented x3 HENMT Head: normal to inspection, atraumatic Ears: external ears normal Nose: no nasal discharge Mouth: oral mucosae normal, moist mucous membranes Eyes General: appearance normal, both eyes and all related structures Conjunctivae: conjunctivae normal Sclera: sclerae normal Pupils: PERRL Neck Neck: normal visual inspection Neck mass: No Chest Chest palpation AND inspection: deferred Resp Effort AND Inspection: normal respiratory effort, symmetric chest movement, able to speak in complete sentences Auscultation: Bilateral: Clear to Auscultation Cardio Heart Sounds: A. fib GI Inspection: normal to inspection Auscultation: normal bowel sounds Palpation: soft, no guarding General: deferred Musc Musculoskeletal: No muscle weakness Skin General: no rashes or lesions noted Wounds: no wounds Neuro General: moves all extremities Cognition: normal cognition Gait: normal gait Motor: muscle tone normal throughout Extrem General: normal to inspection, normal gait, pedal edema. Psych Mental Status: mental status grossly normal Affect: normal affect Speech and Movement: speech and movement normal Attitude: cooperative Thought Process: normal Judgment: judgment good ROS Const Constitutional: Positive for decreased energy; no anorexia, body ache, chills, fatigue, fever(s), frequent falls, malaise, night sweats, weakness, weight change, sleep problems, abnormal sleep pattern, change in appetite, other, headache(s), snoring or excessive sweating Eyes Eyes: No blurry vision, change in vision, double vision, discharge, dry eyes, bulging eyes, floaters, visual disturbances, eye pain, light sensitivity, spots in vision, tunnel vision or other ENT ENT: No abnormal hearing, ear pain, ear discharge, ear pressure, hearing loss, tinnitus, dizziness/vertigo, balance problems, nosebleed/epistaxis, nasal congestion, nasal obstruction, nose pain, sinus pressure, sinus pain, nasal discharge, post nasal drip, headache(s), facial pain, dental pain, dry mouth, bad breath, hoarseness, lip swelling, mouth lesions, mouth pain, sore throat, tongue swelling, throat swelling, other, difficulty swallowing or neck pain Resp Respiratory: Positive for shortness of breath and wheezing; no cough, change in phlegm color, chest congestion, excessive phlegm production, hemoptysis, pain on inspiration, pain with cough, snoring, stridor or other Cardio Cardiology: Positive for generalized swelling; no chest pain at rest, chest pain with exertion, leg pain with exertion, excessive sweating, shortness of breath, dyspnea on exertion, irregular heart rhythm, lightheadedness, orthopnea, radiating jaw, neck or arm pain, fast heart rate, slow heart rate, palpitations or other Gastro GI: No abdominal pain, belching, bloating, change in bowel habits, change in stool character, coffee ground emesis, constipation, cramping, diarrhea, heartburn, difficulty swallowing, feeling full early, excessive flatus, incontinent of stools, Vomiting blood/hematemesis, blood in stool, loose stools, Black,tarry stools, nausea/dyspepsia, pain with swallowing, vomiting or other Genitourinary Male: No difficulty urinating, burning urination, painful urination, urinary incontinence, urinary frequency, urinary urgency, urinary hesitancy, urinary retention, blood in urine, Frequent nighttime urination/ nocturia, post void dribbling, suprapubic fullness, side pain, sexual problems, genital lesions, genital itching, erectile dysfunction, penile discharge, difficulty with ejaculations, blood in semen, scrotal swelling, testicle lump, testicle pain or other Musc Musculoskeletal: No abnormal walking, joint pain, back pain, deformity, joint swelling, limited range of motion, loss of height, muscle cramps, muscle weakness, decreased muscle mass, body aches, neck pain, numbness, radiating pain into limb, stiffness, tingling or other Skin Skin: No acne, hair loss, change in hair, nail changes, boil, change in skin color, dry skin, redness, excessive hair growth, yellowing of the skin, lesions, itching, rash, skin pain, skin ulcer, sores, skin swelling, wounds or other Breast Breast: No other Neuro Neurology: No frequent falls, weakness, visual disturbances, abnormal hearing, headache(s), abnormal walking, numbness or tingling Psych Psychiatric: No abnormal sleep pattern, No change in appetite Endo Endocrine: No fatigue, other or excessive sweating Aller/Imm Allergy/Immunologic: Positive for wheezing; no lip swelling, tongue swelling, throat swelling or itchy eyes Exam Musc Musculoskeletal: No muscle weakness Assessment AND Plan 1. Thyroid dysfunction E07.9 Plan Detail Other Orders Orders: Other Medications New: Additional Comments Start tapazole 2.5mg twice weekly Lab in 6 weeks Go to ER if sore throat or fever. RTC 6 weeks. Coding Level of Care Code Off vis,est,level 4 Diagnoses Thyroid dysfunction E07.9 08/16/17 0941 <Electronically signed by Camryn TALLEY> Date Camryn TALLEY Cosigner Signature: Date (if applicable) CC: PACEMAKER CHECK Observed: 08/13/2017 Status: F Source: [place] 9:20 AM [facility] REPOSITORY [facility] [address] [place] [address] Pacemaker Check Date of Service: 08/03/17 1131 MR#: [id number] Acct: [id number] Name: SHANTELL RIVERA Rep #: [id number] : 1935 From: Daxa Madison Age/Sex: 82/M Location: [facility] Status: Signed Comments Summary Comments: Dual Chamber Pacemaker Evaluation: Interrogation shows 190 SVT episodes and 26.6K. Stored e-grams available for review show atrial flutter with RVR up to to 200 bpm. Left pectoral pocket/incision w/o s/s of infection or erosion. Pt offers no cardiac complaints. states he fell this winter and broke some ribs. Presenting rhythm shows atrial flutter with ventricular rate 100 to 140 bpm. SECURITY OPERATIONS MANAGER=6%. Battery longevity approx 2 yrs. Lead impedances and sensing remain stable. Unable to check atrial threshold d/t atrial flutter and unable to check ventricular threshold d/t increased ventricular HR. Programmed kolby pacing to VVIR d/t predominantly in atrial flutter noted on histograms. No other parameter changes made. Counters cleared. Next f/u appt scheduled for in 3 mos. Metoprolol increased via MAYANK Ramirez due to elevated ventricular rate with atrial flutter. Device Device Date Interviewed: 08/03/17 Follow-up Location: in office Interview Reason: routine follow up Fish Cleaner: Fitnet Name: Kenn [email or web address] Model: [id number] Serial #: [id number] Implant Date: 11/28/12 Year(s): 4 Implant Physician: Dr. Casey Leo Patient Characteristics Atrial Indication: sick sinus syndrome Ejection fraction %: 65 to 70 (07/2015) By: Echo Underlying rhythm: Sinus bradycardia Pacemaker Dependent: No Device Characteristics Device: Dual Chamber Type: Pacemaker Remote Follow-Up: No Device Physical Exam Yes Incision well healed Leads Lead #1 Fish Cleaner Lead 1: Guidant Model Lead 1: 4469 Serial# Lead 1: [id number] Date Implanted Lead 1: 07/10/05 Position Lead 1: RA Lead #2 Fish Cleaner Lead 2: Guidant Model Lead 2: 4470 Serial# Lead 2: [id number] Date Implanted Lead 2: 07/10/05 Position Lead 2: RV Diagnostics Pacing % RA Pacin % RV Pacin Measurements Battery Magnet Rate (bmp): 100 Predicted Remaining Longevity (months or years): 2 years RA Measurements Signal Amplitude (mV): 2.7 Impedance (Ohms): 417 RV Measurements Signal Amplitude (mV): 18.1 Impedance (Ohms): 593 Kolby Settings Kolby Settings Pacemaker Mode VVIR Lower Rate Limit (bpm) 70 Hysteresis Rate (bpm) Max Track Rate (bpm) Max Sensor Rate (bpm) 130 Max AV Delay (msec) Max PV Delay (msec) Max PVARP (msec) Output/Sensing V/PW (ms) 2.0/0.5 Sensitivity RA RV LV Comments: Billing Codes PM Device Codes: PM Dev Prog Eval, Dual Assessment AND Plan Problems 1. Cardiac pacemaker Z95.0 2. Sick sinus syndrome I49.5 3. Paroxysmal atrial fibrillation I48.91 4. Coronary artery disease I25.10 Medications Discontinued: metoprolol tartrate Discontinued Reason: Ordered/Entered in 100 mg (2 x 50 mg) PO BID error 08/12/17 1630 <Electronically signed by Daax Madison > Date Daxa Madison 08/13/17 0920<Electronically signed by Jeryr Jeffers MD> Cosigner Signature: Date (if applicable) Jerry Jeffers MD CC: FREE T3 Collected: 08/05/2017 Status: F Source: [place] 9:29 AM [facility] REPOSITORY TYPE CODE TESTS RESULT OUT OF RANGE REFERENCE UNITS LAB L501.15944 2.18-3.98 pg/mL Normal FREE T3 3.0 Performed By: #### L501.74564, L501.9520, L506.0400 #### [place] [facility] [address] [place], [address] THYROID STIM HORMONE Collected: 08/05/2017 Status: F Source: [place] (TSH) 9:29 AM [facility] REPOSITORY TYPE CODE TESTS RESULT OUT OF RANGE REFERENCE UNITS LAB L501.9520 0.358-3.74 uIU/mL Low TSH 0.17 Performed By: #### L501.91584, L501.9520, L506.0400 #### [facility] [address] [place], [address] T4 FREE DIRECT Collected: 08/05/2017 Status: F Source: [place] 9:29 AM [facility] REPOSITORY TYPE CODE TESTS RESULT OUT OF RANGE REFERENCE UNITS LAB L506.0400 0.76-1.46 ng/dL Normal T4 FREE 1.33 DIRECT Performed By: #### L501.38194, L501.9520, L506.0400 #### [facility] [address] [place], [address] 12 LEAD ELECTROCARDIOGRAM Observed: 08/02/2017 Status: F Source: [place] 2:18 PM [facility] REPOSITORY [facility] Cardiovascular Services [address] [place] [address] 12 Lead EKG 07/29/17 2100 MR#: [id number] Acct: [id number] Name: SHANTELL RIVERA Rep #: [id number] : 1935 82 From: Casey Leo MD Attending Dr: Carol Leary MD Status: DIS IN Ordering Dr: Anitha Staton MD Date: 07/29/17 Location: [facility] Sex: M C Admitted: 07/29/17 Test Reason : Blood Pressure : / mmHG Vent. Rate : 106 BPM Atrial Rate : 394 BPM P-R Int : 000 ms QRS Dur : 100 ms QT Int : 350 ms P-R-T Axes : 000 032 122 degrees QTc Int : 464 ms Atrial fibrillation Nonspecific ST and T wave abnormality Abnormal ECG Confirmed by CASEY LEO MD ([id number]), research editor JONATHAN RIVERA ([id number]) on 08/02/2017 2:17:33 PM Referred By: MULU Confirmed By:CASEY LEO MD 08/02/17 1417 Date Casey Leo MD CC: MD Wan Staton; Carol Leary MD; Jono Lamar MD Signed DISCHARGE SUMMARY Observed: 07/31/2017 Status: F Source: [place] 11:09 [facility] REPOSITORY [facility] Medical Records Department [address] [place] [address] Discharge Summary 07/31/17 1045 MR#: [id number] Acct: [id number] Name: SHANTELL RIVERA Rep #: [id number] : 1935 82 From: Carol Leary MD PCP: Jono Lamar MD, Chi Status: ADM IN Y Location: [place] [address] Discharge Date and Diagnosis - Problem List Patient Problems: Active and Suspected Problems (Last Updated 04/08/17 @ 15:15 by Ramya Byrne) Partial bowel obstruction (Acute) Date of Admission: 07/29/17 Date of Discharge: 07/31/17 - Primary Discharge Diagnosis Active and Suspected Problems (Last Updated 04/08/17 @ 15:15 by Ramya Byrne) Partial bowel obstruction (Acute) A. fib with RVR Subclincal hyperthyroidism Bilateral non-obstructing kidney stones - Secondary Discharge Diagnosis Chronic Problems (Last Updated 04/08/17 @ 15:15 by Ramya Byrne) Thyroid dysfunction (Chronic) Pt has not had any labs for thyroid since 08/2016 which were in normal range. Will check labs at this time. Dose will remain same unless labs abnormal. 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) Coronary artery disease (Chronic) Sick sinus syndrome (Chronic) Kidney disease, chronic, stage III (GFR 30-59 ml/min) (Chronic) Hyperlipidemia (Chronic) Hypothyroidism (Chronic) Hypertension (Chronic) Afib (Chronic) Cardiac pacemaker (Chronic) S/P PTCA (percutaneous transluminal coronary angioplasty) (Chronic) Thyroid disease (Chronic) Hospital Course and Treatment Imaging Results: 07/31/17 05:10 Abd Inc Decub and/or Erect [RAD] Urgent General surgery Operations: None Procedures: None Summary of Care Provided: 82 years old male admitted with abdominal pain, nausea and vomiting of 2 days durationand he was found to have small bowel obstruction and also A. fib with RVR. 1. Small bowel obstruction, likely due to adhesions and previous surgeries, initially managed with NG tube, general surgery consulted, kept n.p.o., improved conservatively, NG tube removed, tolerated improvement in diet and was discharged home. 2. Rabia baeza with RVR, rate controlled on day of discharge, was on metoprolol p.o. 25 mg twice daily, metoprolol increased to 50 mg p.o. twice daily, CHADS2 score is 2, not on anticoagulation, unclear reasons, patient says it was stopped 3-4 years and unsure why. On aspirin, will need to follow-up with cardiology within 2 weeks. 3. Hyperthyroidism, subclinical, TSH 0.16, normal FT4, FT3, needs to have labs repeated and follow-up with endocrinology in 2-4 weeks 4. Bilateral nonobstructing kidney stones, stable 5. CAD status post CABG and stents, on aspirin, metoprolol and statins. 6. Hypertension, controlled, on metoprolol. 7. Sick sinus syndrome, status post pacemaker 8. Hyperlipidemia, on statins. 9. Benign prostatic hypertrophy, on Proscar and Flomax. Discharge Diet: Low fat/ Low Cholesterol, 2000 mg Sodium Diet Discharge Activity: Return to Normal Activity Home Medications: Medications to take at Discharge Aspirin [Aspirin, Baby] 81 mg PO DAILY@0800 #0 tab.chew 11/26/14 Ergocalciferol [Vitamin D] 50,000 unit PO QMONTH #0 cap 11/26/14 Finasteride [Proscar] 5 mg PO DAILY #30 tab 11/26/14 Folic Acid 1 mg PO DAILY@0800 #0 tab 11/26/14 Nitroglycerin [Nitrostat] 0.4 mg SUBLINGUAL Q5M PRN #1 bottle 11/26/14 Omeprazole [Prilosec] 20 mg PO DAILY 02/19/15 Rosuvastatin Calcium [Crestor] 40 mg PO DAILY 02/19/15 Gabapentin [Neurontin] 300 mg PO QHS 08/17/15 Lipo-Flavonoid Plus 2 tab PO BID 12/13/15 imipramine 25 mg tablet 25 mg PO DAILY 04/08/17 multivitamin tablet 1 tab PO QAM 04/08/17 Calcium Phosphate Trib/Vit D3 [Citracal + D3 Gummies] 1 each PO DAILY 07/29/17 Tamsulosin HCl [Flomax] 0.4 mg PO DAILY 07/29/17 Metoprolol Tartrate [Lopressor (beta seth)] 50 mg PO BID tablet 07/31/17 Primary Care Physician: Jono Lamar Chi, MD [Primary Care Provider] - Please follow up with your Primary Care Physician in: within 2 weeks Please Follow Up With: Jerry Jeffers MD When: within 2 weeks Please Follow Up With: Camryn Zayas PLASTICS SEASONER OPERATORMorenaC When: in 4 weeks for repeat thyroid function testing Disposition: Home Minutes spent on discharge:: 25 Patient Condition:: Stable Medical Necessity - Tobacco Use Smoking Status: Former smoker Meaningful Use Info Meaningful Use Diagnoses (Choose all that apply): None applicable Code Visit Inpatient E AND M: 73100 Disch Hosp 07/31/17 1109 <Electronically signed by Carol Leary MD> Date Carol Leary MD Cosigner Signature (if applicable): Date CC: Carol Leary MD; Jono Lamar MD Signed DISCHARGE INSTRUCTION Observed: 07/31/2017 Status: F Source: [place] 10:45 [facility] Medical Records Department [address] [place] [address] Instructions for Home/Discharge Instructions 07/31/17 1038 MR#: [id number] Acct: [id number] Name: SHANTELL RIVERA Rep #: [id number] : 1935 82 From: Carol Leary MD PCP: Len TABOR,Jono Cannon Status: ADM IN - Discharge Diagnoses Current Active Problems: Current Active and Chronic Problems (Last Updated 04/08/17 @ 15:15 by Ramya Byrne) Partial bowel obstruction (Acute) Reason(s) for Visit for Discharge Instructions: Abdominal pain You will use the following diet at home:: Cardiac Your food should be the consistency of: Regular Your liquids should be the consistency of: Regular/Thin Discharge Activity: Return to Normal Activity Allergies/Adverse Reactions: Allergies No Known Allergies Allergy (Verified 07/29/17 20:02) Medications to take at Discharge Aspirin [Aspirin, Baby] 81 mg PO DAILY@0800 #0 tab.chew 11/26/14 Ergocalciferol [Vitamin D] 50,000 unit PO QMONTH #0 cap 11/26/14 Finasteride [Proscar] 5 mg PO DAILY #30 tab 11/26/14 Folic Acid 1 mg PO DAILY@0800 #0 tab 11/26/14 Nitroglycerin [Nitrostat] 0.4 mg SUBLINGUAL Q5M PRN #1 bottle 11/26/14 Omeprazole [Prilosec] 20 mg PO DAILY 02/19/15 Rosuvastatin Calcium [Crestor] 40 mg PO DAILY 02/19/15 Gabapentin [Neurontin] 300 mg PO QHS 08/17/15 Lipo-Flavonoid Plus 2 tab PO BID 12/13/15 imipramine 25 mg tablet 25 mg PO DAILY 04/08/17 multivitamin tablet 1 tab PO QAM 04/08/17 Calcium Phosphate Trib/Vit D3 [Citracal + D3 Gummies] 1 each PO DAILY 07/29/17 Tamsulosin HCl [Flomax] 0.4 mg PO DAILY 07/29/17 Metoprolol Tartrate [Lopressor (beta seth)] 50 mg PO BID tablet 07/31/17 Primary Care Physician: Jono Lamar Chi, MD [Primary Care Provider] - Please follow up with your Primary Care Physician in: within 2 weeks Please Follow Up With: Jerry Jeffers MD When: within 2 weeks Please Follow Up With: Camryn Zayas, PLASTICS SEASONER OPERATOR-C When: in 4 weeks for repeat thyroid function testing Proposed Discharge Date: 07/31/17 07/31/17 1045 <Electronically signed by Carol Leary MD> Date Carol Leary MD CC: Desmond Zaman MD; Jono Lamar MD CONSULTATION Observed: 07/30/2017 Status: F Source: [place] 9:39 AM [facility] Medical Records Department [address] [place] [address] Consultation 07/30/17 0935 MR#: [id number] Acct: [id number] Name: SHANTELL RIVERA Rep #: [id number] : 1935 82 From: Desmond Zaman MD PCP: Len TABOR,Jono Cannon Status: ADM IN Y Location: [place] [address] Problem List (1) Partial bowel obstruction Status: Acute Qualifiers: Intestinal obstruction type: unspecified Qualified Code(s): K56.600 - Partial intestinal obstruction, unspecified as to cause Reason for Consult Date of Consultation: 07/30/17 History of Present Illness: The patient is a 82 M with a history of CABG a pacemaker, A. fib, cardiac stents, cholecystectomy who reports yesterday he began having more centralized abdominal pain that persisted today he has had some nausea he has been able to eat he has had normal bowel habits and urinary habits. No fever no cough, the pain comes in spasms he does report history of kidney stones years ago nothing recent, he has had no exposures no antibiotics is otherwise been in stable health, he points directly to the periumbilical central abdominal region as the focal area of his pain, nothing makes the pain better or worse. His workup included a CAT scan in the emergency department and placement of an NG tube. Patient states that he feels significantly better than he did when he came into the hospital. Patient states that he is passing small amounts of flatus. He feels that his abdomen is less distended. And he is no longer complaining of abdominal pain. Past Medical History Past Medical History (Chronic Problems): Chronic Problems (Last Updated 04/08/17 @ 15:15 by Ramya Byrne) Thyroid dysfunction (Chronic) Pt has not had any labs for thyroid since 08/2016 which were in normal range. Will check labs at this time. Dose will remain same unless labs abnormal. 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) Coronary artery disease (Chronic) Sick sinus syndrome (Chronic) Kidney disease, chronic, stage III (GFR 30-59 ml/min) (Chronic) Hyperlipidemia (Chronic) Hypothyroidism (Chronic) Hypertension (Chronic) Afib (Chronic) Cardiac pacemaker (Chronic) S/P PTCA (percutaneous transluminal coronary angioplasty) (Chronic) Thyroid disease (Chronic) Allergies No Known Allergies Allergy (Verified 07/29/17 20:02) Home Medications: Ambulatory Orders Medication Instructions Recorded Aspirin [Aspirin, Baby] 81 mg PO DAILY@0800 #0 tab.chew 11/26/14 Surgical History: cholecystectomy, coronary bypass surgery, herniorrhaphy, - - CABG 2, pacemaker, PCI 4, left shoulder surgery, tonsillectomy.laproscopic surgery of abd Psychiatric History: No pertinent psych hx Lives: Spouse/ Significant Other Smoking Status: Former smoker Alcohol: None Drugs: None - *Family History Paternal History Items: Cancer, - Maternal History Items: - - according to her she had every disease known to man in her sleep Review of Systems Cardiovascular: Denies: Chest Pain, Chest Pressure, Chest Tightness, Palpitations Respiratory: Denies: Cough, Hemoptysis, Shortness of breath at rest, Shortness of breath upon exertion, Wheezing Gastrointestinal: Denies: Abdominal Pain, Constipation, Diarrhea, Hematemesis, Nausea, Melena, Vomiting Patient Problems: Active and Suspected Problems (Last Updated 04/08/17 @ 15:15 by Ramya Byrne) Partial bowel obstruction (Acute) - Physical Exam Lungs: Clear to auscultation Cardiovascular: Regular rate, Regular Rhythm, No murmurs Abdomen: Bowel Sounds Present, Soft, Non Tender, Non-Distended Vital Signs Temp Pulse Resp BP Pulse Ox 98.9 F 101 H 16 110/64 94 07/30/17 05:17 07/30/17 07:09 07/30/17 05:17 07/30/17 05:17 07/30/17 06:49 Oxygen Delivery Method Room Air Weight: 168 lb 13.985 oz Body Mass Index (BMI) 25.7 Intake and Output for Last 24 Hours Intake Total 60 / 60 731 / 731 Output Total 475 / 475 Balance 60 / 60 256 / 256 Laboratory Tests Past 24 Hrs WBC 9.2 RBC 3.94 L Hgb 11.3 L Hct 36.2 L MCV 91.9 MCH 28.7 MCHC 31.2 L Assessment/Plan Active and Suspected Problems (Last Updated 04/08/17 @ 15:15 by Ramya Byrne) Partial bowel obstruction (Acute) We will wait for his morning flatplate and upright abdomen. More than likely will be able to remove the NG tube and start him on clear liquids today. He appears to be resolving with medical management alone. 07/30/17 0939 <Electronically signed by Desmond Zaman MD> Date Desmond Fernandez Signature (if applicable): Date CC: Desmond Zaman MD; Jono Lamar MD Signed ABD INC DECUB Observed: 07/30/2017 Status: F Source: [place] AND/OR ERECT 6:30 AM [facility] Imaging Services [address] [place] [address] Abd Inc Decub and/or Erect MR#: [id number] Acct: [id number] Name: SHANTELL RIVERA Rep #: [id number] : 1935 M 82 From: Fabien Parekh PCP: Jono Lamar MD, Chi Status: ADM IN Study: Abd Inc Decub and/or Erect Date of Exam: 07/31/17 Exam# [id number] Ordering Dr: Jose Flores MD STUDY: X-RAY - ABDOMEN/PELVIS REASON FOR EXAM: Male, 82 years old. Small bowel obstruction TECHNIQUE: AP supine and upright views of the abdomen and pelvis. COMPARISON: 07/30/2017. FINDINGS: Normal visualized lung bases. There is an unremarkable bowel gas pattern. There is no demonstrated free abdominal air. The visualized liver, spleen and kidneys are grossly normal in size and morphology. Normal soft tissue structures. Normal visualized osseous structures. RAD/Abd Inc Decub and/or Erect IMPRESSION: Normal x-ray examination of the abdomen and pelvis. No bowel obstruction. Electronically Signed: Fabien Parekh DO at 8:27 EDT , Service support , CC: Jose Flores MD; Jono Lamar MD Tipple Operator: Signed CBC W/DIFF, AUTOMATED Collected: 07/30/2017 Status: F Source: [place] 5:25 AM [facility] REPOSITORY TYPE CODE TESTS RESULT OUT OF RANGE REFERENCE UNITS LAB L100.1000 4.4-11.0 K/mm3 Normal WBC 9.2 LAB L100.1200 4.6-6.2 M/mm3 Low RBC 3.94 LAB L100.1300 13.0-16.5 g/dl Low HGB 11.3 LAB L100.1400 40-54 % Low HCT 36.2 LAB L100.1500 80-94 fL Normal MCV 91.9 LAB L100.1600 27.0-32.0 pg Normal MCH 28.7 LAB L100.1700 32-36 g/gl Low MCHC 31.2 LAB L100.1810 11.6-14.6 % High RDW CV 16.0 LAB L100.1820 35.1-43.9 fl High RDW SD 54.0 LAB L100.1900 150-450 K/mm3 Normal PLT 180 LAB L100.2000 6.2-12.0 fl Normal MPV 10.0 LAB L100.2100 47-70 % Normal NEUT% 68.9 LAB L100.2200 19-41 % Low LY% 18.1 LAB L100.2300 0-10 % High MONO% 12.3 LAB L100.2400 0-5 % Normal EO% 0.4 LAB L100.2500 0-1 % Normal BASO% 0.2 LAB L100.2550 0.0-0.9 % Normal IM GRAN % 0.100 Result Comment: IG% - Immature Granulocytes (promyelocytes, myelocytes and metamyelocytes) > 1% indicates that a LEFT SHIFT is Present. LAB L100.2620 2.0-7.7 X10 3/uL Normal Absolute Neut 6.4 LAB L100.2720 0.83-4.51 X10 3/ul Normal Absolute Lymph 1.67 Performed By: #### L100.0100 #### [facility] [place], [address] BASIC METABOLIC Collected: 07/30/2017 Status: F Source: [place] PROFILE (BMP) 5:25 AM [facility] REPOSITORY TYPE CODE TESTS RESULT OUT OF RANGE REFERENCE UNITS LAB L501.0100 74-106 mg/dL Normal GLU 92 Result Comment: Please note revised GLUCOSE reference range effective 2017. LAB L501.1000 7-18 mg/dL Normal BUN 14 LAB L501.1100 0.70-1.30 mg/dL Normal CREAT,SERUM 0.94 Result Comment: The validity of the calculated GFR AND GFRAA in patients over 70 years has not been determined. Clinical correlation is essential. LAB L501.1110 >60 mL/min Normal EST GFR 82 Result Comment: Non- GFR Calc LAB L501.1115 >60 mL/min Normal EST GFR - AA 99 Result Comment: GFR Calc LAB L501.1255 ml/min Normal Estimated CRCL 59.63 LAB L501.1300 10-20 RATIO Normal BUN/CRE 14.9 LAB L501.2200 8.5-10 mg/dL Normal .1 CA 8.9 LAB L501.5300 136-14 mmol/L Normal 5 NA 143 LAB L501.5600 3.5-5. mmol/L Normal 1 K 4.8 LAB L501.5900 98-107 mmol/L High CL 109 LAB L501.6100 21.0-3 mmol/L Normal 2.0 CO2 27.0 LAB L501.6200 5-15 Normal GAP 7 Performed By: #### L500.2500 #### [facility] [address] [place], [place], [address] MAGNESIUM Collected: 07/30/2017 Status: F Source: [place]NA 5:25 AM [facility] REPOSITORY Order Comment: Comments: as add on test Comments: as add on test TYPE CODE TESTS RESULT OUT OF RANGE REFERENCE UNITS LAB L501.5200 1.6-2.6 mg/dL Normal MG 2.2 Result Comment: Please note revised Magnesium reference range effective 2017. Performed By: #### L501.5200, L501.12338, L506.0400 #### [facility] [address] [facility] [place], [address] FREE T3 Collected: 07/30/2017 Status: F Source: [place] 5:25 AM [facility] REPOSITORY Order Comment: Comments: as add on test Comments: as add on test TYPE CODE TESTS RESULT OUT OF RANGE REFERENCE UNITS LAB L501.06950 2.18-3.98 pg/mL Normal FREE T3 3.0 Performed By: #### L501.5200, L501.33887, L506.0400 #### [facility] [address] [place], [address] T4 FREE DIRECT Collected: 07/30/2017 Status: F Source: [place] 5:25 AM [facility] REPOSITORY Order Comment: Comments: as add on test Comments: as add on test TYPE CODE TESTS RESULT OUT OF RANGE REFERENCE UNITS LAB L506.0400 0.76-1.46 ng/dL Normal T4 FREE 1.14 DIRECT Performed By: #### L501.5200, L501.26134, L506.0400 #### [facility] [address] [place], [address] ABD DECUB AND/OR Observed: 07/30/2017 Status: F Source: [place] ERECT(PORTABL 12:00 AM [facility] Imaging Services [address] [place] [address] Abd Decub and[facility] [id number] Acct: [id number] Name: SHANTELL RIVERA Rep #: [id number] : 1935 M 82 From: Royer Pineda MD PCP: Len TABOR,Jono [facility] Status: ADM IN Study: Abd Decub and/or Erect[facility] Date of Exam: 07/30/17 Exam# [id number] Ordering Dr: Kyra Gruber MD STUDY: X-RAY - ABDOMEN/PELVIS REASON FOR EXAM: Male, 82 years old. History of small bowel obstruction. TECHNIQUE: AP supine and decubitus views of the abdomen and pelvis. COMPARISON: Comparison is made with prior radiograph dated July 29, 2017. FINDINGS: A nasogastric tube is in situ. The tip is in the body of the stomach just distal to the gastroesophageal junction. Small left pleural effusion. Left basilar atelectasis. Blunting of the right costophrenic angle. Calcification of the mitral valve annulus. There is a moderate amount of colonic fecal material. There is no evidence of small bowel obstruction at this time. There is no demonstrated free abdominal air. Surgical clips are seen in the right upper quadrant most likely secondary to prior cholecystectomy. Atherosclerotic calcification of the abdominal aorta. There are diffuse degenerative changes of the visualized lumbar spine. RAD/Abd Decub and/or Erect(Portabl IMPRESSION: Moderate amount of fecal material is seen in the colon. There is no evidence of a small bowel obstruction. Electronically Signed: Royer Pineda MD at 8:33 EDT Tel [phone], Service support , CC: Kyra Gruber; Jono Lamar MD Tipple Operator: Signed EMERGENCY DEPARTMENT Observed: 07/29/2017 Status: F Source: [place] SUMMARY 11:24 PM [facility] Medical Records Department [address] [place] [address] Emergency Department Summary 07/29/172013 MR#: [id number] Acct: [id number] Name: SHANTELL RIVERA Rep #: [id number] : 1935 82 From: Anitha Staton MD PCP: Jono Lamar MD, Chi Status: ADM IN - ER Visit Summary Date of Service: 07/29/17 Chief Complaint: [] Mid abdominal pain since yesterday History of Present Illness: The patient is a 82 M [] of CABG a pacemaker, A. fib, cardiac stents, cholecystectomy who reports yesterday he began having more centralized abdominal pain that persisted today he has had some nausea he has been able to eat he has had normal bowel habits and urinary habits. No fever no cough, the pain comes in spasms he does report history of kidney stones years ago nothing recent, he has had no exposures no antibiotics is otherwise been in stable health, he points directly to the periumbilical central abdominal region as the focal area of his pain, nothing makes the pain better or worse Physical Examination: [] He is tachycardic to 110 he is afebrile his blood pressure is within normal range she is awake and alert answering questions slightly hard of hearing his HEENT exam is unremarkable neck is supple unremarkable the lungs sound normal heart tones are about 90 sound regular the abdomen is soft he has this discomfort in the central abdomen, this area seems thicker indurated but there is no redness or warmth or abscess and there is no obvious hernia that is appreciated mass or pulsation, his exam to inspection shows no hernias and he has no pain in the area his upper lower extremity unremarkable pulses are symmetric is moving all 4 extremities he is talking in full sentences Patient indicates his only abdominal surgery was cholecystectomy I wonder whether he had prior abdominal surgery given the thickness to the abdominal wall skin anteriorly where he is having pain Test Results: [] Emergency Department Course and Treatment: [], EKG shows A. fib IV fluids CT scan labs pain management by the CT scan shows small bowel obstruction prior cholecystectomy findings, there do appear to be surgical clips in the area of the anterior abdominal wall nothing else acute see those reports the labs are unremarkable, the patient again is not really clear about his history and what type of procedures she has had done we spoke with Dr. Rin gamboa after consultation with her and further approach to the medical record there is a note from her prior admission for bowel obstruction by Dr. Zaman that the patient did have a right periumbilical mesh repair by Dr. Junior in 2004 given all that we spoke with Dr. Junior spoke with the hospitalist they are aware of the above and the hospitalist will admit consultation by surgery discussed all the above with the patient he agrees reevaluation is resting company he feels better we will place NG tube is received IV fluids Treatment Plan: [] Disposition: [] Admit stable Impression: [] Bowel obstruction, prior cholecystectomy, prior anterior abdominal wall periumbilical hernia repair, history of CABG pacemaker cardiac stents A. fib This note was generated with Explore Engageation software. It may contain incorrect words, spelling, and punctuation that were not noted in review of the chart prior to signing ED Disposition - Plan for ED Patient: Chief Complaint: Abd Pain Referrals: Jono Lamar Chi, MD [Primary Care Provider] - What to do if you have Problems For any increased pain, shortness of breath, bleeding, nausea or vomiting, chest pain, or any unexpected problems, contact your Primary Care Provider. Call [facility] ([phone]) or report to the closest Emergency Room. Call 911 if necessary. 07/29/17 8457 <Electronically signed by Anitha Staton MD> Date Anitha Staton MD Cosigner Signature (If Indicated): Date CC: Jono Lamar MD HISTORY AND PHYSICAL Observed: 07/29/2017 Status: F Source: [place] EXAM 10:34 PM [facility] Medical Records Department [address] [place] [address] History and Physical 07/29/174 MR#: [id number] Acct: [id number] Name: SHANTELL RIVERA Rep #: [id number] : 1935 82 From: Kyra Gruber MD PCP: Jono Lamar MD, Chi Status: ADM IN Location: [place] [address] Problem List (1) Coronary artery disease Status: Chronic (2) Sick sinus syndrome Status: Chronic (3) Kidney disease, chronic, stage III (GFR 30-59 ml/min) Status: Chronic (4) Hyperlipidemia Status: Chronic (5) Hypothyroidism Status: Chronic (6) Hypertension Status: Chronic (7) Afib Status: Chronic Qualifiers: (8) Cardiac pacemaker Status: Chronic (9) S/P PTCA (percutaneous transluminal coronary angioplasty) Status: Chronic History of Present Illness Date of Admission: 07/29/17 Chief Complaint: Abdominal pain. The patient is a 82 year old M with past medical history as mentioned above presented to the emergency room because of abdominal pain. His complaints started 2 days ago with lower abdominal pain, intermittent pain, sharp pain, 8-10 out of 10 in severity, not radiating, started to worsen today and today started complaining of associated nausea and vomiting and this pain has no aggravating or relieving factors. He had a bowel movement today and he has been passing flatus. He denies fever or chills. He denied urinary symptoms. He does have a history of kidney stones in the past. He had a history of herniorrhaphy and cholecystectomy. In the emergency room, he was afebrile, heart rate has been anywhere from 100-120, blood pressure was stable and pulse ox was 92% on room air. His routine blood work was remarkable for hemoglobin of 12.4 g/dL, otherwise normal. LFT and lipase were unremarkable. Lactic acid was normal. CT scan abdomen and pelvis without contrast revealed small bowel obstruction, bilateral nonobstructing kidney stones and small left pleural effusion. He is being admitted for small bowel obstruction and A. fib with RVR. Past Medical History Past Medical History (Chronic Problems): Chronic Problems (Last Updated 04/08/17 @ 15:15 by Ramya Byrne) Thyroid dysfunction (Chronic) Pt has not had any labs for thyroid since 08/2016 which were in normal range. Will check labs at this time. Dose will remain same unless labs abnormal. 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) Coronary artery disease (Chronic) Sick sinus syndrome (Chronic) Kidney disease, chronic, stage III (GFR 30-59 ml/min) (Chronic) Hyperlipidemia (Chronic) Hypothyroidism (Chronic) Hypertension (Chronic) Afib (Chronic) Cardiac pacemaker (Chronic) S/P PTCA (percutaneous transluminal coronary angioplasty) (Chronic) Thyroid disease (Chronic) Allergies No Known Allergies Allergy (Verified 07/29/17 20:02) Home Medications: Ambulatory Orders Medication Instructions Recorded Aspirin [Aspirin, Baby] 81 mg PO DAILY@0800 #0 tab.chew 11/26/14 Surgical History: cholecystectomy, coronary bypass surgery, herniorrhaphy, - - CABG 2, pacemaker, PCI 4, left shoulder surgery, tonsillectomy.laproscopic surgery of abd Psychiatric History: No pertinent psych hx Lives: Spouse/ Significant Other Smoking Status: Former smoker Alcohol: None Drugs: None - *Family History Paternal History Items: Cancer, - Maternal History Items: - - according to her she had every disease known to man in her sleep Review of Systems Constitutional: Denies: Anorexia, Chills, Fever, Weakness Eyes: Denies: Blurred vision, Double vision, Drainage, Redness HEENT: Denies: Difficulty Hearing, Ear Pain, Eye Pain, Nasal Congestion, Sore Throat Cardiovascular: Denies: Chest Pain, Chest Pressure, Chest Tightness, Edema, Heaviness, Palpitations, Syncope Respiratory: Denies: Cough, Pleuritic Pain, Shortness of Breath, Sputum production, Wheezing Gastrointestinal: Reports: Abdominal Pain, Nausea, Vomiting. Denies: Constipation, Diarrhea Genitourinary: Denies: Dysuria, Frequency, Hematuria Musculoskeletal: Denies: Arm Pain, Back Pain, Foot Pain Skin: Denies: Dryness, Rash Neurological: Denies: Balance problems, Blurred vision, Double vision, Change in Speech, Slurred speech, Confusion, Headaches, Incoordination Psychiatric: Denies: Anxiety, Depression Endocrine: Denies: Change in Body Habitus, Polydipsia VTE Information - Inpt Only VTE Present on Admission: No VTE Mechan Device Prophylaxis: None VTE Pharm Prophylaxis ordered?: Yes - Physical Exam General: Alert, Oriented x3, Cooperative, No apparent distress HEENT: Atraumatic, PERRLA, EOMI Oral: Moist Mucosa, No Gingival or Mucosal Lesions/ Ulcerations Neck: Supple, No JVD, Negative Carotid Bruits, Trachea Midline, Thyroid Normal Size and Texture Lungs: Clear to auscultation, No rhonchi, No wheeze, No rales, Diminished Cardiovascular: Normal S1, Normal S2, No murmurs, PMI Normal, Irregular Rate, Tachycardic Abdomen: Bowel Sounds Present, Soft, Non-Distended, No Hepato- splenomegaly, Tender - Minimal lower abdominal tenderness. Extremities: No clubbing, No cyanosis, No edema Skin: No rashes, No breakdown Lymphatic: No Cervical, Supraclavicular, or Inguinal Adenopathy Neurological: Cranial nerves II-XII grossly intact, Motor Exam 5/5 strength throughout Psych/Mental Status: Normal Affect, Appropriate, Alert and oriented to time, place, person, mood and affect Vital Signs Temp Pulse Resp BP Pulse Ox 97.5 F L 118 H 20 H 105/55 L 92 07/29/17 20:00 07/29/17 20:00 07/29/17 20:00 07/29/17 20:00 07/29/17 20:00 Oxygen Delivery Method Room Air Weight: 170 lb 3.15 oz Body Mass Index (BMI) 25.9 Laboratory Tests Past 24 Hrs WBC 10.5 RBC 4.36 L Hgb 12.4 L Hct 39.6 L MCV 90.8 MCH 28.4 MCHC 31.3 L RDW 15.9 H RDW Differential 52.8 H Clinical Impression(s) from Imaging Studies Abdomen/Pelvis CT 07/29/17 20:07 IMPRESSION: Small bowel obstruction. Colonic diverticulosis. Bilateral nonobstructing renal calculi. Left pleural effusion. Atherosclerosis. Electronically Signed: Lalita Sharif MD at 21:12 EDT Tel , Service support , Assessment/Plan This is an 82 years old male patient presented to the emergency room because of abdominal pain with nausea and vomiting and he was found to have small bowel obstruction and he has been in A. fib with RVR. #1 small bowel obstruction: Likely due to adhesions as he has a history of herniorrhaphy and cholecystectomy. According to the patient, he never had a history of bowel obstruction. CT scan abdomen and pelvis without contrast reviewed as above. NG tube inserted and he is on suction at this time. He still complaining of abdominal pain. Plan: Admit to PCU because he has A. fib with RVR, cardiac monitoring, keep on n.p.o., IV fluids, IV morphine as needed for pain, IV antiemetics, IV Pepcid twice daily, continue NG tube with low intermittent suction, general surgery consult, replace electrolytes as appropriate, PT OT evaluation and treatment. #2 A. fib with RVR: His heart rate has been fluctuating from around 100-130, blood pressure is borderline, systolic has been around 105. He does have a history of chronic A. fib. Plan: Cardiac monitoring, continue metoprolol, start IV metoprolol as needed with holding parameters. #3 bilateral nonobstructing kidney stones: Without evidence of obstruction, no hydronephrosis or hydroureter. Kidney function is normal. #4 CAD status post CABG and stents: Patient denies any chest pain or shortness of breath. Continue aspirin, metoprolol and statins. #5 hypertension: Blood pressure is borderline, continue metoprolol, close monitoring. #6 chronic atrial fibrillation/sick sinus syndrome: Status post pacemaker. As mentioned above, heart rate has been around 100-130. Plan for metoprolol p.o. twice daily and IV metoprolol as needed. Patient is not on anticoagulation. #7 hyperlipidemia: Continue statins. #8 benign prostatic hypertrophy: Continue Proscar and Flomax. #9 DVT prophylaxis: Subcu heparin. This note was generated with [employer]ore [employer] software. It may contain incorrect words, spelling, and punctuation that were not noted in checking the note before signing. Code Visit Inpatient E AND M: 62902 Init Hosp L3 07/29/17 2234 <Electronically signed by Kyra Gruber MD> Date Kyra Gruber MD Cosigner Signature: Date (if applicable) CC: Kyra Gruber; Jono Lamar MD Signed ABDOMEN SINGLE VIEW Observed: 07/29/2017 Status: F Source: [place] (PORTABLE) 9:38 PM [facility] Imaging Services [address] [place] [address] Abdomen Single View (Portable) MR#: [id number] Acct: [id number] Name: SHANTELL RIVERA Rep #: [id number] : 1935 M 82 From: Lalita Sharif MD PCP: Jono Lamar MD, Chi Status: ADM IN Study: Abdomen Single View (Portable) Date of Exam: 07/29/17 Exam# [id number] Ordering Dr: Anitha Staton MD STUDY: X-RAY - ABDOMEN/PELVIS REASON FOR EXAM: Male, 82 years old. NGT placement TECHNIQUE: Portable abdomen COMPARISON: May 07 2017 FINDINGS: There is a nasogastric tube in place with its tip within the expected region of the gastric fundus. There is a nonspecific bowel gas pattern. There are surgical clips within the right upper quadrant consistent with prior cholecystectomy. There are degenerative changes of the visualized thoracic and lumbar spine. RAD/Abdomen Single View (Portable) IMPRESSION: Nasogastric tube in a satisfactory position. Electronically Signed: Lalita Sharif MD at 23:12 EDT Tel , Service support , CC: MD Wan Staton; Jono Lamar MD Tipple Operator: Signed CBC W/DIFF, AUTOMATED Collected: 07/29/2017 Status: F Source: [place] 8:15 PM [facility] REPOS[facility] TYPE CODE TESTS RESULT OUT OF RANGE REFERENCE UNITS LAB L100.1000 4.4-11.0 K/mm3 Normal WBC 10.5 LAB L100.1200 4.6-6.2 M/mm3 Low RBC 4.36 LAB L100.1300 13.0-16.5 g/dl Low HGB 12.4 LAB L100.1400 40-54 % Low HCT 39.6 LAB L100.1500 80-94 fL Normal MCV 90.8 LAB L100.1600 27.0-32.0 pg Normal MCH 28.4 LAB L100.1700 32-36 g/gl Low MCHC 31.3 LAB L100.1810 11.6-14.6 % High RDW CV 15.9 LAB L100.1820 35.1-43.9 fl High RDW SD 52.8 LAB L100.1900 150-450 K/mm3 Normal PLT 205 LAB L100.2000 6.2-12.0 fl Normal MPV 9.8 LAB L100.2100 47-70 % High NEUT% 71.7 LAB L100.2200 19-41 % Low LY% 15.3 LAB L100.2300 0-10 % High MONO% 10.9 LAB L100.2400 0-5 % Normal EO% 1.6 LAB L100.2500 0-1 % Normal BASO% 0.4 LAB L100.2550 0.0-0.9 % Normal IM GRAN % 0.100 Result Comment: IG% - Immature Granulocytes (promyelocytes, myelocytes and metamyelocytes) > 1% indicates that a LEFT SHIFT is Present. LAB L100.2620 2.0-7.7 X10 3/uL Normal Absolute Neut 7.5 LAB L100.2720 0.83-4.51 X10 3/ul Normal Absolute Lymph 1.61 Performed By: #### L100.0100 #### [facility] [address] [place], [address] BASIC METABOLIC Collected: 07/29/2017 Status: F Source: [place] PROFILE (BMP) 8:15 PM [facility] REPOS[facility] TYPE CODE TESTS RESULT OUT OF RANGE REFERENCE UNITS LAB L501.0100 74-106 mg/dL Normal GLU 100 Result Comment: Fasting Glucose result from 100 to 125 mg/dL suggests IMPAIRED HOMEOSTASIS per A.D.A. criteria. Please note revised GLUCOSE reference range effective 2017. LAB L501.1000 7-18 mg/dL Normal BUN 13 LAB L501.1100 0.70-1.30 mg/dL Normal CREAT,SERUM 1.08 Result Comment: The validity of the calculated GFR AND GFRAA in patients over 70 years has not been determined. Clinical correlation is essential. LAB L501.1110 >60 mL/min Normal EST GFR 70 Result Comment: Non- GFR Calc LAB L501.1115 >60 mL/min Normal EST GFR - AA 84 Result Comment: GFR Calc LAB L501.1255 ml/min Normal Estimated CRCL 51.90 LAB L501.1300 10-20 RATIO Normal BUN/CRE 12.0 LAB L501.2200 8.5-10 mg/dL Normal .1 CA 9.4 LAB L501.5300 136-14 mmol/L Normal 5 NA 143 LAB L501.5600 3.5-5. mmol/L Normal 1 K 4.5 LAB L501.5900 98-107 mmol/L High CL 109 LAB L501.6100 21.0-3 mmol/L Normal 2.0 CO2 27.0 LAB L501.6200 5-15 Normal GAP 7 Performed By: #### L500.2500, L500.3400, L501.2450 #### [facility] [address] [place], [address] LIVER PROFILE Collected: 07/29/2017 Status: F Source: [place] 8:15 PM [facility] REPOS[facility] TYPE CODE TESTS RESULT OUT OF RANGE REFERENCE UNITS LAB L501.1500 6.4-8.2 g/dL Normal T PROT 6.9 LAB L501.1800 3.2-5.0 g/dL Normal ALB 3.5 LAB L501.1950 2.2-4.2 g/dL Normal GLOB 3.4 LAB L501.4100 15-37 U/L Normal AST 15 LAB L501.4305 45-117 U/L Normal ALK P 112 LAB L501.4405 16-61 U/L Low ALT 14 Result Comment: Please note revised ALT reference range effective 2017. LAB L501.4600 0.20-1.00 mg/dL Normal T BILI 0.60 LAB L501.4700 0.00-0.30 mg/dL Normal D BILI 0.10 Performed By: #### L500.2500, L500.3400, L501.2450 #### [facility] [address] [place], [address] LIPASE Collected: 07/29/2017 Status: F Source: [place] 8:15 PM [facility] REPOS[facility] TYPE CODE TESTS RESULT OUT OF RANGE REFERENCE UNITS LAB L501.2450 73-393 U/L Normal LIPASE 124 Performed By: #### L500.2500, L500.3400, L501.2450 #### [facility] [address] [place], [address] LACTIC ACID Collected: 07/29/2017 Status: F Source: [place] 8:15 PM [facility] Order Comment: Yes/No query for Sepsis Lactate Rule Y TYPE CODE TESTS RESULT OUT OF RANGE REFERENCE UNITS LAB L503.6005 0.4-2.0 mmol/L Normal LACTIC ACID 1.8 Performed By: #### L503.6005 #### [facility] [address] [place], [address] THYROID STIM HORMONE Collected: 07/29/2017 Status: F Source: [place] (TSH) 8:15 PM [facility] REPOS[facility] TYPE CODE TESTS RESULT OUT OF RANGE REFERENCE UNITS LAB L501.9520 0.358-3.74 uIU/mL Low TSH 0.16 Performed By: #### L501.9520 #### [facility] [address] [place], [address] ABDOMEN/PELVIS WITHOUT Observed: 07/29/2017 Status: F Source: [place] CONT 8:08 PM [facility] Imaging Services [address] [place] [address] Abdomen/Pelvis without Cont MR#: [id number] Acct: [id number] Name: SHANTELL RIVERA Rep #: [id number] : 1935 M 82 From: Lalita Sharif MD PCP: Len TABOR,Jono Cannon Status: REG ER Study: Abdomen/Pelvis without Cont Date of Exam: 07/29/17 Exam# [id number] Ordering Dr: Anitha Staton MD STUDY: CT ABDOMEN AND PELVIS WITHOUT CONTRAST REASON FOR EXAM: Male, 82 years old. Mid abdominal pain RADIATION DOSAGE (If Supplied By Facility): CTDIvol = ( 8.22 ) mGy, DLP = ( 406.44 ) mGycm TECHNIQUE: Transaxial images were obtained from the dome of the diaphragm to the symphysis pubis without oral contrast, and without intravenous contrast. Sagittal and coronal images were reconstructed. Individualized dose optimization techniques were used for this CT. COMPARISON: March 16, 2016 FINDINGS: There is a left pleural effusion present. There is a cardiac pacer device in place. Normal liver. There are surgical clips in the gallbladder fossa consistent with a prior cholecystectomy. Normal spleen. Normal pancreas. Normal bilateral adrenal glands. There are bilateral nonobstructing renal calculi. There is a exophytic left renal cysts measuring up to 6.1 Normal visualized stomach. There are dilated fluid-filled loops of small bowel within the lower abdomen and pelvis. There is feculent appearing material within the ileum. There are postsurgical changes along the anterior abdominal wall. There are diverticula scattered throughout the sigmoid colon. There is non-visualization of the appendix. There is diffuse atherosclerotic calcification of the abdominal aorta, without a demonstrated aneurysm. Normal inferior vena cava. Normal retroperitoneum. Normal urinary bladder. There are diffuse degenerative changes of the visualized lumbar spine. There are stable T12 and L1 anterior compression deformities. The bones are diffusely demineralized. There are left seventh, eighth and ninth rib deformities consistent old rib fractures. CT/Abdomen/Pelvis without Cont IMPRESSION: Small bowel obstruction. Colonic diverticulosis. Bilateral nonobstructing renal calculi. Left pleural effusion. Atherosclerosis. Electronically Signed: Lalita Sharif MD at 21:12 EDT Tel , Service support , CC: MD Wan Staton; Jono Lamar MD Tipple Operator: Signed EMERGENCY DEPARTMENT Observed: 06/08/2017 Status: F Source: [place] SUMMARY 2:35 AM [facility] Medical Records Department [address] [place] [address] Emergency Department Summary 06/07/17 1642 MR#: [id number] Acct: [id number] Name: SHANTELL RIVERA Rep #: [id number] : 1935 81 From: Brisa Umana MD PCP: Jono Lamar MD, Chi Status: DEP ER - ER Visit Summary Date of Service: 06/07/17 Chief Complaint: Fall History of Present Illness: The patient is a 81 M who fell on the ice yesterday. Patient is complaining of pain to the left ribs and to his left hip. Denies striking his head or loss of consciousness. Patient does have A. fib but is only taking baby aspirin, no other anticoagulants. He took some dmoj-xey-yitbqze arthritis pain relief medicine this morning. Physical Examination: Vital signs are unremarkable. Head neck examination reveals no external sign of trauma. No C-spine tenderness. Heart is regular rate and rhythm. Lung sounds are clear. He has reproducible tenderness in the left lower lateral ribs. There is no crepitus noted. Abdomen is soft nontender. Extremity examination reveals tenderness over both anterior and lateral portion of the left hip. He does have full range of motion at the hip. Strong distal pulses are noted throughout. Test Results: Left rib series with chest x-ray reveals probable to nondisplaced lateral rib fractures. He has evidence of COPD without pneumothorax. Pelvis left hip x-rays are unremarkable. Emergency Department Course and Treatment: Patient initially declined anything for pain, but after x-rays return he does agree to taking something stronger for pain. He will be given 1 tab of [place] here and a prescription for [place] will be sent electronically to [facility]. Treatment Plan: [] Disposition: Discharge Impression: 1. Mechanical fall 2. Nondisplaced rib fractures This note was generated with [employer] dictation software. It may contain incorrect words, spelling, and punctuation that were not noted in review of the chart prior to signing ED Disposition - Plan for ED Patient: Chief Complaint: Fall Referrals: Jono Lamar Chi, MD [Primary Care Provider] - What to do if you have Problems For any increased pain, shortness of breath, bleeding, nausea or vomiting, chest pain, or any unexpected problems, contact your Primary Care Provider. Call [facility] ([phone]) or report to the closest Emergency Room. Call 911 if necessary. 06/08/17 0235 <Electronically signed by Brisa Umana MD> Date Brisa Umana MD Cosigner Signature (If Indicated): Date CC: Jono Lamar MD DISCHARGE INSTRUCTION Observed: 06/07/2017 Status: F Source: [place] 6:06 PM [facility] Medical Records Department [address] [place] [address] Discharge Instruction 06/07/17 1803 MR#: [id number] Acct: [id number] Name: SHANTELL RIVERA Rep #: [id number] : 1935 81 From: Brisa Umana MD PCP: Jono aLmar MD, Chi Status: REG ER ED Disposition - Plan for ED Patient: Disposition: Home or Assisted Living Chief Complaint: Fall Instructions: ED Mechanical Fall, ED Fx Rib Prescriptions: Hydrocodone Bitart/Apap 5-325 [[place] 5/325] 1 - 2 tablet PO Q6H PRN PRN 4 Days #20 tablet PRN Reason: Pain Referrals: Jono Lamar Chi, MD [Primary Care Provider] - 1 Week What to do if you have Problems For any increased pain, shortness of breath, bleeding, nausea or vomiting, chest pain, or any unexpected problems, contact your Primary Care Provider. Call [facility] ([phone]) or report to the closest Emergency Room. Call 911 if necessary. 06/07/171805 <Electronically signed by Brisa Umana MD> Date Brisa Umana MD Cosigner Signature (If Indicated): Date CC: Jono Lamar MD RIBS UNI MIN 3V Observed: 06/07/2017 Status: F Source: [place] W/PA CHEST 4:41 PM [facility] Imaging Services [address] [place] [address] Ribs Uni Min 3V w/PA Chest MR#: [id number] Acct: [id number] Name: SHANTELL RIVERA Rep #: [id number] : 1935 M 81 From: George Kong DO PCP: Jono Lamar MD, Chi Status: REG ER Study: Ribs Uni Min 3V w/PA Chest Date of Exam: 06/07/17 Exam# [id number] Ordering Dr: Brisa Umana MD STUDY: X-RAY - UNILATERAL RIBS ( LEFT ) WITH CHEST REASON FOR EXAM: Male, 81 years old. Fall on the ice. Left rib pain TECHNIQUE - RIBS: 4 view(s) of the ribs. TECHNIQUE - CHEST: Single frontal view of the chest. COMPARISON: None. FINDINGS - RIBS: There are questionable nondisplaced lateral rib fractures involving the seventh and eighth ribs. FINDINGS - CHEST: There is hyperinflation of the lungs consistent with chronic obstructive lung disease (COPD). Lungs are clear. There is no demonstrated pleural abnormality. 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 Mild cardiomegaly. Left chest wall pacing device. Normal mediastinum and jostin. Normal visualized pulmonary arteries. Normal visualized aortic arch and descending thoracic aorta. Normal visualized thoracic spine. Normal visualized ribs, clavicles, and shoulders. There is no demonstrated abnormality of the visualized soft tissue structures of the upper abdomen. RAD/Ribs Uni Min 3V w/PA Chest IMPRESSION: RIBS: Probable 2 nondisplaced left lateral rib fractures as above CHEST: COPD without pneumothorax or acute airspace disease Electronically Signed: George Kong DO at 17:44 EST Tel , Service support , CC: Brisa Umana MD; Jono Lamar MD Tipple Operator: Signed HIP 2-3 VIEWS WITH Observed: 06/07/2017 Status: F Source: [place] PELVIS 4:41 PM [facility] Imaging Services [address] [place] [address] Hip 2-3 Views with Pelvis MR#: [id number] Acct: [id number] Name: SHANTELL RIVERA Rep #: [id number] : 1935 M 81 From: George Kong DO PCP: Len TABOR,Jono Cannon Status: REG ER Study: Hip 2-3 Views with Pelvis Date of Exam: 06/07/17 Exam# [id number] Ordering Dr: Brisa Umana MD STUDY: X-RAY - PELVIS AND LEFT HIP REASON FOR EXAM: Male, 81 years old. Left hip pain after fall on the ice TECHNIQUE: Radiological exam, hip, unilateral, with pelvis when performed; 2 or 3 views. COMPARISON: None. FINDINGS: There is a non-specific bowel gas pattern. Normal visualized soft tissue structures. Normal bilateral iliac wings, sacroiliac joints and visualized sacrum. Normal bilateral superior and inferior pubic rami. Normal pubic symphysis. Normal bilateral ischial tuberosities. There are osteoarthritic changes of the femoral head with marginal osteophyte formation. Normal acetabulum. There is mild articular joint space narrowing of the hip. RAD/Hip 2-3 Views with Pelvis IMPRESSION: No acute fracture Electronically Signed: George Kong DO at 17:46 EST Tel , Service support , CC: Brisa Umana MD; Jono Lamar MD Tipple Operator: Signed ALLERGIES ALLERGIES DATE TYPE / CODE NAME / CODE REACTION SEVERITY SOURCE 05/10/2018 Drug No Known Unknown [place] [facility] Allergy/4160 Allergies/F00 Hospital 03300(SNOMED 0627370(RXNOR Repository CT) M) ENCOUNTERS ENCOUNTERS ADMIT/DISCHARGE ACCOUNT ADMITTING ENCOUNTER LOCATION SOURCE NUMBER CLASS 05/10/2018/ [id number] Ambulatory BMSBuilding:B [place] 9 1 [facility] Repository 05/10/2018/ [id number] Ambulatory BMSBuilding:B [place] 9 2 [facility] Repository 04/12/2018 [id number] Ambulatory [place] 1 [facility] ing:POLAB3 Repository 02/08/2018/ [id number] Ambulatory BMSBuilding:B [place] 8 0 [facility] Repository 01/31/2018 [id number] Ambulatory [place] 1 [facility] ing:LAB Repository 01/31/2018/ [id number] Ambulatory BMSBuilding:B [place] 8 5 [facility] 01/07/2018/ [id number] Emergency [place] 8 0 [facility] ing:ED Repository 01/05/2018 [id number] Ambulatory [place] 5 [facility] ing:US Repository 01/04/2018 [id number] Ambulatory [place] 9 [facility] ing:CT Repository 12/23/2017/ [id number] Ambulatory BMSBuilding:B [place] 8 7 [facility] Repository 12/17/2017 [id number] Ambulatory [place] 3 [facility] ing:LAB Repository 12/05/2017/ [id number] Ambulatory BMSBuilding:W [place] 8 0 [facility] Repository 12/05/2017 [id number] Jopperi, Johnson Ambulatory BMSBuilding:B [place] 1 [facility] Repository 12/05/2017 [id number] Jococo, Johnson Ambulatory BMSBuilding:B [place] 4 [facility] Repository 12/05/2017 [id number] Jopperi, Johnson Ambulatory BMSBuilding:B [place] [address] [facility] Repository 12/05/2017 [id number] Jopperi, Johnson Ambulatory BMSBuilding:B [place] 6 [facility] Repository 12/05/2017 [id number] Jopperi, Johnson Ambulatory BMSBuilding:B [place] 5 [facility] Repository 12/05/2017 [id number] Jopperi, Johnson Ambulatory BMSBuilding:B [place] 0 [facility] Repository 12/05/2017 [id number] Jopperi, Johnson Ambulatory BMSBuilding:B [place] [address] Repository 12/05/2017 [id number] Jococo, Johnson Ambulatory BMSBuilding:B [place] 3 [facility] Repository 12/05/2017 [id number] MildredankitaJohnson blunt Ambulatory BMSBuilding:B [place] 1 [facility] Repository 12/05/2017/ [id number] MildredankitamerleneJohnson Inpatient [place] 8 2 Encounter [facility] ing:PCURoom: Repository [id number]: 1 12/05/2017 [id number] Johnson Roque Ambulatory BMSBuilding:B [place] 4 [facility] Repository 12/02/2017/ [id number] Ambulatory BMSBuilding:B [place] 8 4 [facility] Repository 11/30/2017/ [id number] Emergency [place] 8 5 [facility] ing:ED Repository 11/05/2017/ [id number] Ambulatory BMSBuilding:B [place] 8 1 [facility] Repository 11/04/2017 [id number] Ambulatory [place] 7 [facility] ing:LABSPEC Repository 11/03/2017/ [id number] Ambulatory BMSBuilding:B [place] 8 9 [facility] Repository 09/29/2017/ [id number] Ambulatory BMSBuilding:B [place] 8 5 [facility] Repository 09/21/2017 [id number] Ambulatory [facility] [facility] Repository 09/13/2017 [id number] Ambulatory [place] 3 [facility] ing:LAB Repository 09/13/2017/ [id number] Ambulatory BMSBuilding:B [place] 8 7 [facility] 09/07/2017 [id number] Ambulatory [place] 2 [facility] ing:LAB Repository 08/19/2017 [id number] Ambulatory [place] 3 [facility] ing:US Repository 08/12/2017/ [id number] Ambulatory BMSBuilding:B [place] 8 3 [facility]ository 08/05/2017 [id number] Ambulatory [place] 5 [facility] ing:LAB Repository 08/03/2017/ [id number] Ambulatory BMSBuilding:B [place] 8 0 [facility] Repository 07/29/2017 [id number] [place], Ambulatory BMSBuilding:B [place] 0 [place].[facility] Repository 07/29/2017 [id number] Ashelf, Ambulatory BMSBuilding:B [place] 7 [place] Repository 07/29/2017 [id number] Ashelf, Ambulatory BMSBuilding:B [place] 9 [place] [facility] Repository 07/29/2017 [id number] Ashelf, Ambulatory BMSBuilding:B [place] 0 [place] [facility] Repository 07/29/2017 [id number] Ashelf, Ambulatory BMSBuilding:B [place] 0 [place] [facility] Repository 07/29/2017/ [id number] [place]helf, Inpatient [place] 8 4 [place] Encounter [facility] ing:PCURoom: Repository [id number]: 1 06/07/2017/ [id number] Emergency [place] 8 6 [facility] ing:ED Repository PAYERS PAYERS ENCOUNTER GUARANTOR PAYER SUBSCRIBER SOURCE 05/10/2018 SHANTELL RIVERA9430 Primary SHANTELL MILLERDOB: [place] FIGUEROA Insurance:MEDICARE [id number] [facility] [address]Rrw: (330) Number: Repository [phone] HP) [id number] Date:2017-11-05 05/10/2018 Secondary SHANTELL MILLERDOB: [place] Insurance:AARPPolicy [id number] [facility] Number: [facility] [id number] Repository Date:7611-63-45CD [address], [place] [address]ZF: 05/10/2018 Tertiary NOT GIVENUNK [place] Insurance:SELF PAY [facility] Number: Effective Repository Date:2018-05-09 05/10/2018 SHANTELL RIVERA9430 Primary SHANTELL MILLERDOB: [place] Insurance:MEDICARE [id number] [place] [facility] [address]Idv: (330) Number: Repository [phone] () [id number] Date:2018-02-08 05/10/2018 Secondary SHANTELL MILLERDOB: [place] Insurance:AARPPolicy [id number] Community Number: Hospital [id number] Repository Date:5330-26-75MW [address]TA[place]QY, [place] [address]WO: 05/10/2018 Tertiary NOT GIV[place]UNK [place] Insurance:SELF PAY [facility] Hospital Number: Effective Repository Date:2018-05-10 04/12/2018 SHANTELL VALENTINE30 Primary SHANTELL MILLERDOB: [place] Insurance[place]ARE [id number] [address]Tel: (330) Number: Repository [phone] () [id number] Date:2018-04-12 04/12/2018 Secondary SHANTELL MILLERDOB: [place] Insurance:AARPPolicy [id number] Community Number: Hospital [id number] Repository Date:9319-07-91NF [address]LKLDFNL, [place] [address]ER: 04/12/2018 Tertiary [place]UNK [place] Insurance:SELF PAY [facility] Hospital Number: Effective Repository Date:2018-04-12 02/08/2018 SHANTELL RIVERA9430 Primary SHANTELL MILLERDOB: [place] Insurance[place]MEDICARE [id number] [place] [facility] 16727Qrt: (330) Number: Repository [phone] () [id number] Date:2017-11-03 02/08/2018 Secondary SHANTELL MILLERDOB: [place] Insurance:AARPPolicy [id number] Community Number: Hospital [id number] Repository Date:5535-93-43HN [address], [place] [address]KV: 02/08/2018 Tertiary [place] GIV[place]UNK [place] Insurance:SELF PAY [facility] Number: Effective Repository Date:2017-12-02 01/31/2018 SHANTELL [id number] Primary SHANTELL MILLERDOB: [place] Insurance[place]IC[place] [id number] [facility] [address]Xay: (330) Number: Repository [phone] () [id number] Date:2018-01-31 01/31/2018 Secondary SHANTELL MILLERDOB: [place] Insurance:AARPPolicy [id number] Community Number: Hospital [id number] Repository Date:6192-46-29VC [address], [place] [address]EW: 01/31/2018 Tertiary [place]IV[place]UNK [place] Insurance:SELF PAY [facility] Number: Effective Repository Date:2018-01-31 01/31/2018 SHANTELL [id number] Primary SHANTELL MILLERDOB: [place] Insurance:MEDICARE [id number] [facility] [address]Uln: (330) Number: Repository [phone] () [id number] Date:2018-01-12 01/31/2018 Secondary SHANTELL MILLERDOB: [place] Insurance:AARPPolicy [id number] Community Number: Hospital [id number] Repository Date:8164-14-79WJ [address]IPGYRFU, [place] [address]WA: 01/31/2018 Tertiary [place] GIVENUNK [place] Insurance:SELF PAY [facility] Number: Effective Repository Date:2018-01-31 01/07/2018 SHANTELL [id number] Primary SHANTELL MILLERDOB: [place] Insurance:MEDICARE [id number] [address]791Xvl: (330) Number: Repository [phone] () [id number] Date:2018-01-07 01/07/2018 Secondary SHANTELL MILLERDOB: [place] Insurance:AARPPolicy [id number] Community Number: Hospital [id number] Repository Date:5406-20-59YC [address]EH[place]YMI, [place] [address]HV: 01/07/2018 Tertiary [place]UNK [place] Insurance:SELF PAY [facility] Number: Effective Repository Date:2018-01-07 01/05/2018 SHANTELL [id number] Primary SHANTELL MILLERDOB: [place] Insurance[place]MEDICARE [id number] [place] [facility] 18056Nfr: (330) Number: Repository [phone] () [id number] Date:2018-01-05 01/05/2018 Secondary SHANTELL MILLERDOB: [place] Insurance:AARPPolicy [id number] [facility] Number: [facility] [id number] Repository Date:1374-26-28KH [address]XBIWFBX, [place] [address]BL: 01/05/2018 Tertiary NOT GIVENUNK [place] Insurance:SELF PAY [facility] Number: Effective Repository Date:2018-01-05 01/04/2018 SHANTELL [id number] Primary SHANTELL MILLERDOB: [place] Insurance:MEDICARE [id number] [place] [facility] [address]25[address]Pmg: (330) Number: Repository [phone] () [id number] Date:2018-01-04 01/04/2018 Secondary SHANTELL MILLERDOB: [place] Insurance:AARPPolicy [id number] Community Number: [facility] [id number] Repository Date:8137-80-07NG [address]CMVJYMO, [place] [address]KR: 01/04/2018 Tertiary NOT GIVENUNK [place] Insurance:SELF PAY [facility] Number: Effective Repository Date:2018-01-04 12/23/2017 SHANTELL RIVERA9430 Primary SHANTELL MILLERDOB: [place] Insurance[place]MEDICARE [id number] [place] [facility] 97842Gcv: (330) Number: Repository [phone] () [id number] Date:2017-12-09 12/23/2017 Secondary SHANTELL MILLERDOB: [place] Insurance[place]AARPPolicy [id number] Community Number: Hospital [id number] Repository Date:2058-51-42ZR [address]B, [place] [address]AZ: 12/23/2017 Tertiary [place]UNK [place] Insurance:SELF PAY Community [facility] Number: Effective Repository Date:2017-12-23 12/17/2017 SHANTELL [id number] Primary SHANTELL MILLERDOB: [place] Insurance:MEDICARE [id number] [id number]: (330) Number: Repository [phone] () [id number] Date:2017-12-17 12/17/2017 Secondary SHANTELL MILLERDOB: [place] Insurance:AARPPolicy [id number] Community Number: Hospital [id number] Repository Date:9435-42-91XL [address]QDPZI, [place] [address]SN: 12/17/2017 Tertiary [place]UNK [place] Insurance:SELF PAY [facility] Number: Effective Repository Date:2017-12-17 12/05/2017 SHANTELL [id number] Primary SHANTELL MILLERDOB: [place] Insurance[place]MEDICARE [id number] [facility] [place] [id number]: (330) Number: Repository [phone] () [id number] Date:2017-12-05 12/05/2017 Secondary SHANTELL MILLERDOB: [place] Insurance:AARPPolicy [id number] Community Number: Hospital [id number] Repository Date:0706-95-96OB [facility] [address], [place] [address]NO: 12/05/2017 Tertiary NOT GIV[place]UNK [place] Insurance:SELF PAY Community [facility] Number: Effective Repository Date:2017-12-05 12/05/2017 SHANTELL [id number] Primary SHANTELL MILLERDOB: [place] Insurance[place]MEDICARE [id number] [facility] [place] [id number]: (330) Number: Repository [phone] () [id number] Date:2017-12-05 12/05/2017 Secondary SHANTELL MILLERDOB: [place] Insurance:AARPPolicy [id number] Community Number: Hospital [id number] Repository Date:7507-56-16JH [facility] [address], [place] [address]JR: 12/05/2017 Tertiary NOT GIVENUNK [place] Insurance:SELF PAY [facility] Number: Effective Repository Date:2017-12-05 12/05/2017 SHANTELL VALENTINE30 Primary SHANTELL MILLERDOB: [place] Insurance:MEDICARE [id number] [id number]: (330) Number: Repository [phone] () [id number] Date:2017-12-05 12/05/2017 Secondary SHANTELL MILLERDOB: [place] Insurance[place]AARPPolicy [id number] Community Number: Hospital [id number] Repository Date:3434-19-68KM [address]GZGCLMS, [place] [address]DN: 12/05/2017 Tertiary [place]IV[place]UNK [place] Insurance:SELF PAY [facility] Number: Effective Repository Date:2017-12-05 12/05/2017 SHANTELL [id number] Primary SHANTELL MILLERDOB: [place] Insurance:MEDICARE [id number] [id number]: (330) Number: Repository [phone] () [id number] Date:2017-12-05 12/05/2017 Secondary SHANTELL MILLERDOB: [place] Insurance:AARPPolicy [id number] Community Number: Hospital [id number] Repository Date:9093-91-76RJ [address]A, [place] [address]XW: 12/05/2017 Tertiary NOT GIV[place]UNK [place] Insurance:SELF PAY [facility] Hospital Number: Effective Repository Date:2017-12-05 12/05/2017 SHANTELL RIVERA9430 Primary SHANTELL MILLERDOB: [place] Insurance[place]MEDICARE [id number] [place] [facility] [address]Owg: (330) Number: Repository [phone] () [id number] Date:2017-12-05 12/05/2017 Secondary SHANTELL MILLERDOB: [place] Insurance:AARPPolicy [id number] Community Number: Hospital [id number] Repository Date:4141-22-08ZT [address], [place] [address]UV: 12/05/2017 Tertiary [place]UNK [place] Insurance:SELF PAY [facility] Number: Effective Repository Date:2017-12-05 12/05/2017 SHANTELL VALENTINE30 Primary SHANTELL MILLERDOB: [place] Insurance[place]MEDICARE [id number] [place] [facility] [address]016Qnj: (330) Number: Repository [phone] () [id number] Date:2017-12-05 12/05/2017 Secondary SHANTELL MILLERDOB: [place] Insurance:AARPPolicy [id number] Community Number: Hospital [id number] Repository Date:0229-95-03HY [address]IHJWYFU, [place] [address]VA: 12/05/2017 Tertiary [place]UNK [place] Insurance:SELF PAY [facility] Hospital Number: Effective Repository Date:2017-12-05 12/05/2017 SHANTELL VALENTINE30 Primary SHANTELL MILLERDOB: [place] Insurance[place]MEDICARE [id number] [place] [facility] [address]07[address]Ylv: (330) Number: Repository [phone] () [id number] Date:2017-12-05 12/05/2017 Secondary SHANTELL MILLERDOB: [place] Insurance:AARPPolicy [id number] Community Number: Hospital [id number] Repository Date:7590-62-94FF [address]FJZQSHL, [place] [address]RS: 12/05/2017 Tertiary [place]UNK [place] Insurance:SELF PAY [facility] Number: Effective Repository Date:2017-12-05 12/05/2017 SHANTELL [id number] Primary SHANTELL MILLERDOB: [place] Insurance[place] [id number] [facility] 36396Ezj: (330) Number: Repository [phone] () [id number] Date:2017-12-05 12/05/2017 Secondary SHANTELL MILLERDOB: [place] Insurance:AARPPolicy [id number] Community Number: Hospital [id number] Repository Date:0252-34-84UU [address]LSHKZIN, [place] [address]GA: 12/05/2017 Tertiary [place] GIVENUNK [place] Insurance:SELF PAY [facility] Number: Effective Repository Date:2017-12-05 12/05/2017 SHANTELL VALENTINE30 Primary SHANTELL MILLERDOB: [place] Insurance:[place]ICARE [id number] [id number]: (330) Number: Repository [phone] () [id number] Date:2017-12-05 12/05/2017 Secondary SHANTELL MILLERDOB: [place] Insurance:AARPPolicy [id number] Community Number: Hospital [id number] Repository Date:0536-13-01KT [address]ERVHLU, [place] [address]TN: 12/05/2017 Tertiary [place]K [place] Insurance:SELF PAY [facility] Number: Effective Repository Date:2017-12-05 12/05/2017 SHANTELL RIVERA9430 Primary SHANTELL MILLERDOB: [place] Insurance:[place]ICARE [id number] [facility] [address]Ywb: (330) Number: Repository [phone] () [id number] Date:2017-12-05 12/05/2017 Secondary SHANTELL MILLERDOB: [place] Insurance[place]AARPPolicy [id number] Community Number: Hospital [id number] Repository Date:3695-64-84VZ [facility] [address]UBBHNTY, [place] [address]OZ: 12/05/2017 Tertiary NOT GIVENUNK [place] Insurance:SELF PAY [facility] Number: Effective Repository Date:2017-12-05 12/05/2017 SHANTELL VALENTINE30 Primary SHANTELL MILLERDOB: [place] Insurance:[place]ICARE [id number] [facility] [address]Goj: (330) Number: Repository [phone] () [id number] Date:2017-12-05 12/05/2017 Secondary SHANTELL MILLERDOB: [place] Insurance[place]AARPPolicy [id number] Community Number: [facility] [id number] Repository Date:3967-96-04BL [address]IQKPPOW, [place] [address]PX: 12/05/2017 Tertiary NOT GIVENUNK [place] Insurance:SELF PAY [facility] Number: Effective Repository Date:2017-12-05 12/05/2017 SHANTELL RIVERA9430 Primary SHANTELL MILLERDOB: [place] Insurance:MEDICARE [id number] [facility] [address]Coo: (330) Number: Repository [phone] () [id number] Date:2017-12-05 12/05/2017 Secondary SHANTELL MILLERDOB: [place] Insurance:AARPPolicy [id number] Community Number: [facility] [id number] Repository Date:6436-14-09TU [address]PJZMQIG, [place] [address]GL: 12/05/2017 Tertiary NOT GIV[place]UNK [place] Insurance:SELF PAY [facility] Hospital Number: Effective Repository Date:2017-12-05 12/02/2017 SHANTELL RIVERA9430 Primary SHANTELL MILLERDOB: [place] Insurance[place] [id number] [facility] 88795Qev: (330) Number: Repository [phone] () [id number] Date:2017-12-01 12/02/2017 Secondary SHANTELL MILLERDOB: [place] Insurance:AARPPolicy [id number] Community Number: Hospital [id number] Repository Date:0922-17-28KI [address]QOHVYI, [place] [address]AK: 12/02/2017 Tertiary [place] GIV[place]UNK [place] Insurance:SELF PAY Community [facility] Hospital Number: Effective Repository Date:2017-12-02 11/30/2017 SHANTELL RIVERA9430 Primary SHANTELL MILLERDOB: [place] Insurance:MEDICARE [id number] [facility] 01890Tly: (330) Number: Repository [phone] () [id number] Date:2017-11-30 11/30/2017 Secondary SHANTELL MILLERDOB: [place] Insurance:AARPPolicy [id number] Community Number: Hospital [id number] Repository Date:5238-66-58LX [address]JPLVZZO, [place] [address]LQ: 11/30/2017 Tertiary NOT GIVENUNK [place] Insurance:SELF PAY [facility] Number: Effective Repository Date:2017-11-30 11/05/2017 SHANTELL [id number] Primary SHANTELL MILLERDOB: [place] Insurance:MEDICARE [id number] [facility] 88001Uiz: (330) Number: Repository [phone] () [id number] Date:2017-10-08 11/05/2017 Secondary SHANTELL MILLERDOB: [place] Insurance[place]AARPPolicy [id number] Community Number: Hospital [id number] Repository Date:8663-97-68TP [address]LNHKJSS, [place] [address]HA: 11/05/2017 Tertiary [place]UNK [place] Insurance:SELF PAY Community [facility] Hospital Number: Effective Repository Date:2017-11-05 11/04/2017 SHANTELL RIVERA9430 Primary SHANTELL MILLERDOB: [place] Insurance:MEDICARE [id number] [facility] 73321Btx: (330) Number: Repository [phone] () [id number] Date:2017-11-04 11/04/2017 Secondary SHANTELL MILLERDOB: [place] Insurance:AARPPolicy [id number] Community Number: Hospital [id number] Repository Date:4265-14-59BX [address]IBOWEJR, [place] [address]MX: 11/04/2017 Tertiary NOT GIVENUNK [place] Insurance:SELF PAY [facility] Number: Effective Repository Date:2017-11-04 11/03/2017 SHANTELL VALENTINE30 Primary SHANTELL RIVERADOB: [place] Insurance:MEDICARE [id number] [address]1109Gux: (330) Number: Repository [phone] () [id number] Date:2017-08-03 11/03/2017 Secondary SHANTELL MILLERDOB: [place] Insurance:AARPPolicy [id number] Community Number: Hospital [id number] Repository Date:1086-72-83EW [facility] [address]TUKLQDL, [place] [address]BG: 11/03/2017 Tertiary NOT GIV[place]UNK [place] Insurance:SELF PAY [facility] Number: Effective Repository Date:2017-11-03 09/29/2017 SHANTELL [id number] Primary SHANTELL RIVERADOB: [place] Insurance:MEDICARE [id number] 54165Qmx: (330) Number: Repository [phone] () [id number] Date:2017-04-06 09/29/2017 Secondary SHANTELL MILLERDOB: [place] Insurance:AARPPolicy [id number] Community Number: Hospital [id number] Repository Date:5599-71-03NY [facility] [address]MZBSJQY, [place] [address]DU: 09/29/2017 Tertiary [place]UNK [place] Insurance:SELF PAY [facility] Number: Effective Repository Date:2017-10-11 09/21/2017 SHANTELL [id number] Primary SHANTELL MILLERDOB: [place] Insurance[place] [id number] [facility] 33875Ctb: (330) Number: Repository [phone] () [id number] Date:2017-09-21 09/21/2017 Secondary SHANTELL MILLERDOB: [place] Insurance:AARPPolicy [id number] Community Number: Hospital [id number] Repository Date:0108-06-95QX [facility] [address]68[address]WJXYLUO, [place] [address]QH: 09/21/2017 Tertiary NOT [place]IV[place]UNK [place] Insurance:SELF PAY [facility] Number: Effective Repository Date:2017-09-21 09/13/2017 SHANTELL VALENTINE30 Primary SHANTELL MILLERDOB: [place] Insurance[place]ARE [id number] [facility] 29091Fzp: (330) Number: Repository [phone] () [id number] Date:2017-09-13 09/13/2017 Secondary SHANTELL MILLERDOB: [place] Insurance:AARPPolicy [id number] Community Number: Hospital [id number] Repository Date:6477-75-32LP [facility] 116384BQPLVES, [place] [address]EV: 09/13/2017 Tertiary NOT [place]IV[place]UNK [place] Insurance:SELF PAY [facility] Hospital Number: Effective Repository Date:2017-09-13 09/13/2017 SHANTELL RIVERA9430 Primary SHANTELL MILLERDOB: [place] Insurance[place]MEDICARE [id number] [facility] 13659Ynr: (330) Number: Repository [phone] () [id number] Date:2017-08-12 09/13/2017 Secondary SHANTELL MILLERDOB: [place] Insurance:AARPPolicy [id number] Community Number: Hospital [id number] Repository Date:0577-08-54YA [facility] [address]93[address]YUPRXER, [place] [address]BN: 09/13/2017 Tertiary [place]IV[place]UNK [place] Insurance:SELF PAY [facility] Hospital Number: Effective Repository Date:2017-09-13 09/07/2017 SHANTELL VALENTINE30 Primary SHANTELL MILLERDOB: [place] Insurance:MEDICARE [id number] [facility] 35888Eeh: (330) Number: Repository [phone] () [id number] Date:2017-09-07 09/07/2017 Secondary SHANTELL MILLERDOB: [place] Insurance:AARPPolicy [id number] Community Number: Hospital [id number] Repository Date:6301-79-36PE [address]GXXTNFC, [place] [address]XT: 09/07/2017 Tertiary NOT GIVENUNK [place] Insurance:SELF PAY [facility] Hospital Number: Effective Repository Date:2017-09-07 08/19/2017 SHANTELL RIVERA9430 Primary SHANTELL MILLERDOB: [place] Insurance:MEDICARE [id number] [place] [facility] 463[address]Gmr: (330) Number: Repository [phone] () [id number] Date:2017-08-16 08/19/2017 Secondary SHANTELL MILLERDOB: [place] Insurance:AARPPolicy [id number] Community Number: Hospital [id number] Repository Date:5135-15-88OJ [address]ZORIFXC, [place] [address]NF: 08/19/2017 Tertiary [place]IV[place]UNK [place] Insurance:SELF PAY [facility] Hospital Number: Effective Repository Date:2017-08-16 08/12/2017 SHANTELL [id number] Primary SHANTELL MILLERDOB: [place] Insurance[place]MEDICARE [id number] [place] [facility] 99641Rsg: (330) Number: Repository [phone] () [id number] Date:2017-08-03 08/12/2017 Secondary SHANTELL MILLERDOB: [place] Insurance:AARPPolicy [id number] Community Number: Hospital [id number] Repository Date:9123-75-26GG [address]YWRBSVL, [place] [address]JI: 08/12/2017 Tertiary NOT GIV[place]UNK [place] Insurance:SELF PAY [facility] Number: Effective Repository Date:2017-08-12 08/05/2017 SHANTELL [id number] Primary SHANTELL MILLERDOB: [place] Insurance:MEDICARE [id number] [facility] 91473Mep: (330) Number: Repository [phone] () [id number] Date:2017-08-05 08/05/2017 Secondary SHANTELL MILLERDOB: [place] Insurance:AARPPolicy [id number] Community Number: Hospital [id number] Repository Date:0744-55-96QP [address]XJDAXPI, [place] [address]WM: 08/05/2017 Tertiary [place]UNK [place] Insurance:SELF PAY [facility] Number: Effective Repository Date:2017-08-05 08/03/2017 SHANTELL [id number] Primary SHANTELL MILLERDOB: [place] Insurance:MEDICARE [id number] A [place] [id number]: (330) Number: Repository [phone] () [id number] Date:2017-05-04 08/03/2017 Secondary SHANTELL MILLERDOB: [place] Insurance:AARPPolicy [id number] Community Number: Hospital [id number] Repository Date:0147-06-45CB [address]UGAGXGC, [place] [address]OS: 08/03/2017 Tertiary NOT GIV[place]UNK [place] Insurance:SELF PAY [facility] Number: Effective Repository Date:2017-08-03 07/29/2017 SHANTELL [id number] Primary SHANTELL MILLERDOB: [place] Insurance:MEDICARE [id number] Health A [facility] 36777Tma: (330) Number: Repository [phone] () [id number] Date:2017-07-29 07/29/2017 Secondary SHANTELL MILLERDOB: [place] Insurance:AARPPolicy [id number] Community Number: Hospital [id number] Repository Date:9373-21-57UT [facility] 376160IABMXFC, [place] [address]DO: 07/29/2017 Tertiary [place]IV[place]UNK [place] Insurance:SELF PAY Community [facility] Hospital Number: Effective Repository Date:2017-07-29 07/29/2017 SHANTELL [id number] Primary SHANTELL MILLERDOB: [place] Insurance:MEDICARE [id number] [place] [address]Tel: ([phone]) Number: Repository [phone] () [id number] Date:2017-07-29 07/29/2017 Secondary SHANTELL MILLERDOB: [place] Insurance[place]AARPPolicy [id number] Community Number: Hospital [id number] Repository Date:[id number], [place] [address]RL: 07/29/2017 Tertiary NOT GIVENUNK [place] Insurance:SELF PAY [facility]: Effective Repository Date:2017-07-29 07/29/2017 SHANTELL [id number] Primary SHANTELL MILLERDOB: [place] Insurance:[place]ICARE [id number] [address]Tel: ([phone]) Number: Repository [phone] () [id number] Date:2017-07-29 07/29/2017 Secondary SHANTELL MILLERDOB: [place] Insurance:AARPPolicy [id number] Community Number: Hospital [id number] Repository Date:[id number], [place] [address]AZ: 07/29/2017 Tertiary NOT GIVENUNK [place] Insurance:SELF PAY Community [facility] Number: Effective Repository Date:2017-07-29 07/29/2017 SHANTELL [id number] Primary SHANTELL MILLERDOB: [place] Insurance:MEDICARE [id number] [id number]: ([phone]) Number: Repository [phone] () [id number] Date:2017-07-29 07/29/2017 Secondary SHANTELL MILLERDOB: [place] Insurance:AARPPolicy [id number] Community Number: Hospital [id number] Repository Date:[id number] [address], [place] [address]NN: 07/29/2017 Tertiary NOT GIVENUNK [place] Insurance:SELF PAY [facility] Effective Repository Date:2017-07-29 07/29/2017 SHANTELL [id number] Primary SHANTELL MILLERDOB: [place] FIGUER[place] Insurance:MEDICARE [id number] [address]Djh: ([phone]) Number: Repository [phone] () [id number] Date:2017-07-29 07/29/2017 Secondary SHANTELL MILLERDOB: [place] Insurance:AARPPolicy [id number] Community Number: Hospital [id number] Repository Date:[id number] [address], [place] [address]FZ: 07/29/2017 Tertiary NOT GIVENUNK [place] Insurance:SELF PAY [facility] Number: Effective Repository Date:2017-07-29 07/29/2017 SHANTELL [id number] Primary SHANTELL MILLERDOB: [place] Insurance:MEDICARE [id number] [address]Ofh: [phone]) Number: Repository [phone] () [id number] Date:2017-07-29 07/29/2017 Secondary SHANTELL MILLERDOB: Ana Insurance:AARPPolicy [id number] Community Number: Hospital [id number] Repository Date:[id number] [address], [place] [address]WO: 07/29/2017 Tertiary NOT GIVENUNK [place] Insurance:SELF PAY [facility] Number: Effective Repository Date:2017-07-29 06/07/2017 SHANTELL [id number] Primary SHANTELL RIVERADOB: [place] FIGUEROA Insurance:MEDICARE [id number] [place] [facility] [id number]: [phone]) Number: Repository [phone] ) [id number] Date:2017-06-07 06/07/2017 Secondary SHANTELL JOAQUINB: [place] Insurance:AARPPolicy [id number] [facility] Number: [facility] [id number] Repository Date:8826-01-88YL [facility] [address], [place] [address]AZ: 06/07/2017 Tertiary NOT GIVENUNK [place] Insurance:SELF PAY [facility] Number: Effective Repository Date:2017-06-07
== END ==
PROVIDERS: Family Provider Family Medicine Geriatric Medicine; PCP Family Medicine Geriatric Medicine; Visit Provider Family Medicine Geriatric Medicine
DX: E55.9 Vitamin D deficiency, unspecified (principal); I10 Essential (primary) hypertension
CPT/HCPCS: 36415; 80053; 82306; 84443; 85025

== ENCOUNTER 2018-08-11 08:38 | Outpatient (RCR) | payer MEDICARE, OTHER, SELFPAY ==
[2018-07-15 09:52] VITALS: BMI 23.4
[2018-08-03 12:41] LABS: International Normalized Ratio 1.7; Prothrombin Time (Protime)PT. 20.2 SECONDS (11.7-14.9)
[2018-08-11 09:26] LABS: International Normalized Ratio 1.8; Prothrombin Time (Protime)PT. 21.1 SECONDS (11.7-14.9)
== END 2018-08-23 16:00 | disposition home or self-care (01) ==
LOC: LAB 08:38
PROVIDERS: Family Provider Family Medicine Geriatric Medicine; PCP Family Medicine Geriatric Medicine; Referring Provider Internal Medicine Cardiovascular Disease; Visit Provider Internal Medicine Cardiovascular Disease
DX: I48.2 Chronic atrial fibrillation (principal); Z79.01 Long term (current) use of anticoagulants
CPT/HCPCS: 36415; 85610

== ENCOUNTER 2018-09-12 09:13 | Emergency (ER) | payer MEDICARE, OTHER, SELFPAY ==
[2018-07-15 09:52] VITALS: BMI 23.4
[2018-09-12 09:14] VITALS: BP 107/60; PULSE 80; RESP 16; TEMP 36; O2SAT 98; BMI 23.5
--- NOTE | 2018-09-12 09:39 | ED.VISSUMM ---
- ER Visit Summary Date of Service: 09/12/18 Chief Complaint: Spider bite left leg History of Present Illness: The patient is a 83 M who is a local store 4 days ago when he felt a sudden pinch to his left lower leg. He assumed that he was bit by a spider but did not see a spider. The area is slightly more swollen and painful today. Patient does have history of A. fib and is on Coumadin. Physical Examination: Vital signs unremarkable. Patient sitting upright in bed no acute distress. Left lower extremity examination reveals a 1 x 2 cm area of mild edema of the left lower navarrete with slightly distended overlying skin veins noted. There is no erythema or warmth. There is no sign of infection. Test Results: [] Emergency Department Course and Treatment: Bedside ultrasound was performed. There is either distended vein with slight debris in it superficially versus a focal fluid collection. Needle aspirate was attempted without return of pus. I explained to the patient that I believe he had a small varicose vein that likely bled a small amount and is now firm and indurated. I do not see evidence of infection. Dressing and Ruben wrap were applied to the area. He will continue to monitor. Treatment Plan: [] Disposition: Discharge Impression: Left leg contusion This note was generated with [employer] dictation software. It may contain incorrect words, spelling, and punctuation that were not noted in review of the chart prior to signing ED Disposition - Plan for ED Patient: Disposition: Home or Assisted Living Instructions: ED Contusion Lower Ext Referrals: Jono Harrington Chi, MD [Primary Care Provider] - 1 Week if not improving
== END 2018-09-12 09:47 | disposition home or self-care (01) ==
PROVIDERS: Emergency Provider Emergency Medicine; Family Provider Family Medicine Geriatric Medicine; PCP Family Medicine Geriatric Medicine
DX: S80.12XA Contusion of left lower leg, initial encounter (principal); X58.XXXA Exposure to other specified factors, initial encounter; Y93.9 Activity, unspecified; Y92.512 Supermarket, store or market as the place of occurrence of the external cause; I25.10 Atherosclerotic heart disease of native coronary artery without angina pectoris; I11.0 Hypertensive heart disease with heart failure; I50.9 Heart failure, unspecified; I48.91 Unspecified atrial fibrillation; I49.5 Sick sinus syndrome; Z95.1 Presence of aortocoronary bypass graft; Z79.01 Long term (current) use of anticoagulants; Z79.82 Long term (current) use of aspirin; Z79.899 Other long term (current) drug therapy
CPT/HCPCS: 99282

== ENCOUNTER 2018-09-17 10:09 | Outpatient (RCR) | payer MEDICARE, OTHER, SELFPAY ==
[2018-07-15 09:52] VITALS: BMI 23.4
[2018-08-27 11:28] LABS: International Normalized Ratio 1.9; Prothrombin Time (Protime)PT. 21.8 SECONDS (11.7-14.9)
[2018-09-17 10:49] LABS: Prothrombin Time (Protime)PT. 22.8 SECONDS (11.7-14.9)
== END 2018-09-17 11:00 | disposition home or self-care (01) ==
LOC: LAB 10:09
PROVIDERS: Family Provider Family Medicine Geriatric Medicine; PCP Family Medicine Geriatric Medicine; Referring Provider Internal Medicine Cardiovascular Disease; Visit Provider Internal Medicine Cardiovascular Disease
DX: I48.2 Chronic atrial fibrillation (principal); Z79.01 Long term (current) use of anticoagulants
CPT/HCPCS: 36415; 85610

== ENCOUNTER → 2018-09-28 13:07 | Outpatient (CLI) | payer MEDICARE, OTHER, SELFPAY ==
[2018-09-28 13:07] VITALS: BMI 23.5
[2018-09-28 14:41] LABS: ALB/GLOB Ratio 1.1 RATIO (0.9-2.4); AST(SGOT) 19 U/L (15-37); Alanine Aminotransfer ALT/SGPT 22 U/L (16-61); Albumin, Serum 3.5 g/dL (3.2-5.0); Alkaline Phosphatase 75 U/L (45-117); Anion Gap 6 (5-15); BUN 20 mg/dL (7-18); BUN/Creat Ratio 16.4 RATIO (10-20); Calcium,Total 8.9 mg/dL (8.5-10.1); Chloride 111 mmol/L (98-107); Creatinine, Serum 1.22 mg/dL (0.70-1.30); EST Glomerular Filtration Rate 60 mL/min (>60); Est Glom Filt Rate - Afr Amer 73 mL/min (>60); Globulin 3.3 g/dL (2.2-4.2); Glucose 101 mg/dL (74-106); Potassium 4.5 mmol/L (3.5-5.1); Protein, Total 6.8 g/dL (6.4-8.2); Sodium Level 141 mmol/L (136-145); T4 Free Direct 1.05 ng/dL (0.76-1.46); Thyroid Stim Hormone (TSH) 1.53 uIU/mL (0.358-3.74)
== END ==
PROVIDERS: Family Provider Family Medicine Geriatric Medicine; PCP Family Medicine Geriatric Medicine; Visit Provider Nurse Practitioner
DX: E05.90 Thyrotoxicosis, unspecified without thyrotoxic crisis or storm (principal)
CPT/HCPCS: 36415; 80053; 84439; 84443

== ENCOUNTER 2018-10-15 10:57 | Outpatient (RCR) | payer MEDICARE, OTHER, SELFPAY ==
[2018-09-24 09:16] VITALS: BMI 23.4
[2018-09-26 12:45] LABS: International Normalized Ratio 2.2; Prothrombin Time (Protime)PT. 24.3 SECONDS (11.7-14.9)
[2018-10-15 11:32] LABS: International Normalized Ratio 1.8; Prothrombin Time (Protime)PT. 20.3 SECONDS (11.7-14.9)
== END 2018-10-23 12:00 | disposition home or self-care (01) ==
LOC: LAB 10:57
PROVIDERS: Family Provider Family Medicine Geriatric Medicine; PCP Family Medicine Geriatric Medicine; Referring Provider Internal Medicine Cardiovascular Disease; Visit Provider Internal Medicine Cardiovascular Disease
DX: I48.2 Chronic atrial fibrillation (principal); Z79.01 Long term (current) use of anticoagulants
CPT/HCPCS: 36415; 85610

== ENCOUNTER → 2018-10-17 09:35 | Outpatient (CLI) | payer MEDICARE, OTHER, SELFPAY ==
[2018-09-28 13:07] VITALS: BMI 23.5
[2018-10-17 11:38] LABS: Absolute Lymphocyte Count 1.77 X10^3/ul (0.83-4.51); Absolute Neutrophil Count 4.1 X10^3/uL (2.0-7.7); Basophil# 0.05 X10^3/uL; Basophil% 0.7 % (0-1); Eosinophil# 0.13 X10^3/uL; Eosinophils% 1.9 % (0-5); Hemoglobin 12.2 g/dl (13.0-16.5); Lymphocyte # 1.77 X10^3/ul (4.0); Lymphocyte % 26.5 % (19-41); Mean Corp Hgb Conc 32.1 g/gl (32-36); Mean Corpuscular Hgb 29.5 pg (27.0-32.0); Mean Corpuscular Volume 91.8 fL (80-94); Mean Platelet Vol. 10.3 fl (6.2-12.0); Monocyte# 0.67 X10^3/uL; Neutrophil # 4.05 X10^3/uL (2.7-7.7); Neutrophil % 60.8 % (47-70); Platelet Count 207 K/mm3 (150-450); RBC Distribution Width CV 14.4 % (11.6-14.6); RBC Distribution Width SD 48.2 fl (35.1-43.9); Red Blood Count 4.14 M/mm3 (4.6-6.2); White Blood Count 6.7 K/mm3 (4.4-11.0)
[2018-10-17 11:42] LABS: POSITIVE COUNT NO; POSITIVE DIFFERENTIAL NO; POSITIVE MORPHOLOGY NO
[2018-10-17 12:13] LABS: ALB/GLOB Ratio 1.1 RATIO (0.9-2.4); AST(SGOT) 20 U/L (15-37); Alanine Aminotransfer ALT/SGPT 24 U/L (16-61); Albumin, Serum 3.8 g/dL (3.2-5.0); Alkaline Phosphatase 75 U/L (45-117); Anion Gap 9 (5-15); BUN 22 mg/dL (7-18); BUN/Creat Ratio 20.6 RATIO (10-20); Calcium,Total 9.5 mg/dL (8.5-10.1); Chloride 108 mmol/L (98-107); Creatinine, Serum 1.07 mg/dL (0.70-1.30); EST Glomerular Filtration Rate 70 mL/min (>60); Est Glom Filt Rate - Afr Amer 85 mL/min (>60); Globulin 3.5 g/dL (2.2-4.2); Glucose 83 mg/dL (74-106); Potassium 4.3 mmol/L (3.5-5.1); Protein, Total 7.3 g/dL (6.4-8.2); Sodium Level 143 mmol/L (136-145); Thyroid Stim Hormone (TSH) 2.24 uIU/mL (0.358-3.74)
== END ==
PROVIDERS: Family Provider Family Medicine Geriatric Medicine; PCP Family Medicine Geriatric Medicine; Visit Provider Family Medicine Geriatric Medicine
DX: E55.9 Vitamin D deficiency, unspecified (principal); I10 Essential (primary) hypertension
CPT/HCPCS: 36415; 80053; 82306; 84443; 85025

== ENCOUNTER 2018-11-14 11:22 | Outpatient (RCR) | payer MEDICARE, OTHER, SELFPAY ==
[2018-09-28 13:07] VITALS: BMI 23.5
[2018-10-31 11:03] LABS: International Normalized Ratio 2.4; Prothrombin Time (Protime)PT. 26.5 SECONDS (11.7-14.9)
[2018-11-14 12:47] LABS: Prothrombin Time (Protime)PT. 22.5 SECONDS (11.7-14.9)
== END 2018-11-23 16:00 | disposition home or self-care (01) ==
LOC: LAB 11:22
PROVIDERS: Physician Assistant Medical; Family Provider Family Medicine Geriatric Medicine; PCP Family Medicine Geriatric Medicine; Referring Provider Internal Medicine Cardiovascular Disease; Visit Provider Internal Medicine Cardiovascular Disease
DX: I48.2 Chronic atrial fibrillation (principal); Z79.01 Long term (current) use of anticoagulants
CPT/HCPCS: 36415; 85610

== ENCOUNTER 2018-12-01 10:48 | Outpatient (RCR) | payer MEDICARE, OTHER, SELFPAY ==
[2018-09-28 13:07] VITALS: BMI 23.5
[2018-12-01 13:07] LABS: International Normalized Ratio 2.8; Prothrombin Time (Protime)PT. 29.8 SECONDS (11.7-14.9)
== END 2018-12-01 12:00 | disposition home or self-care (01) ==
LOC: LAB 10:48
PROVIDERS: Family Provider Family Medicine Geriatric Medicine; PCP Family Medicine Geriatric Medicine; Referring Provider Internal Medicine Cardiovascular Disease; Visit Provider Internal Medicine Cardiovascular Disease
DX: I48.2 Chronic atrial fibrillation (principal); Z79.01 Long term (current) use of anticoagulants
CPT/HCPCS: 36415; 85610

== ENCOUNTER → 2019-04-12 11:45 | Outpatient (CLI) | payer MEDICARE, OTHER, SELFPAY ==
[2018-12-02 14:30] VITALS: BMI 24.0
[2019-04-12 12:32] LABS: Absolute Lymphocyte Count 2.16 X10^3/uL (0.83-4.51); Absolute Neutrophil Count 4.8 X10^3/uL (2.0-7.7); Basophil# 0.05 X10^3/uL; Basophil% 0.6 % (0-1); Eosinophil# 0.12 X10^3/uL; Eosinophils% 1.5 % (0-5); Hematocrit 37.7 % (40-54); Lymphocyte # 2.16 X10^3/ul (4.0); Lymphocyte % 27.2 % (19-41); Mean Corp Hgb Conc 31.8 g/dL (32-36); Mean Corpuscular Hgb 29.7 pg (27.0-32.0); Mean Corpuscular Volume 93.3 fL (80-94); Mean Platelet Vol. 10.4 fl (6.2-12.0); Monocyte# 0.83 X10^3/uL; Monocyte% 10.4 % (0-10); NRBC Flagged by Analyzer 0 % (0-5); Neutrophil # 4.78 X10^3/uL (2.7-7.7); Neutrophil % 60.2 % (47-70); Platelet Count 242 K/mm3 (150-450); RBC Distribution Width CV 13.4 % (11.6-14.6); RBC Distribution Width SD 45.1 fl (35.1-43.9); Red Blood Count 4.04 M/mm3 (4.6-6.2)
[2019-04-12 12:57] LABS: ALB/GLOB Ratio 1.1 RATIO (0.9-2.4); AST(SGOT) 17 U/L (15-37); Alanine Aminotransfer ALT/SGPT 20 U/L (16-61); Albumin, Serum 3.9 g/dL (3.2-5.0); Alkaline Phosphatase 67 U/L (45-117); Anion Gap 11 (5-15); BUN 21 mg/dL (7-18); BUN/Creat Ratio 17.1 RATIO (10-20); Calcium,Total 9.6 mg/dL (8.5-10.1); Chloride 109 mmol/L (98-107); Creatinine, Serum 1.23 mg/dL (0.70-1.30); EST Glomerular Filtration Rate 60 mL/min (>60); Est Glom Filt Rate - Afr Amer 72 mL/min (>60); Globulin 3.5 g/dL (2.2-4.2); Glucose 87 mg/dL (74-106); Protein, Total 7.4 g/dL (6.4-8.2); Sodium Level 143 mmol/L (136-145); Thyroid Stim Hormone (TSH) 3.96 uIU/mL (0.358-3.74)
[2019-04-12 13:17] LABS: Vitamin D,25 Hydroxy 47.3 ng/mL (29.95-100.01)
== END ==
PROVIDERS: Family Provider Family Medicine Geriatric Medicine; PCP Family Medicine Geriatric Medicine; Visit Provider Family Medicine Geriatric Medicine
DX: E55.9 Vitamin D deficiency, unspecified (principal); I10 Essential (primary) hypertension
CPT/HCPCS: 36415; 80053; 82306; 84443; 85025

== ENCOUNTER 2019-06-21 11:59 | Outpatient (RCR) | payer MEDICARE, OTHER, SELFPAY ==
[2018-12-02 14:30] VITALS: BMI 24.0
[2019-06-07 11:30] VITALS: BMI 24.4
[2019-06-07 13:40] LABS: Absolute Lymphocyte Count 1.46 X10^3/uL (0.83-4.51); Absolute Neutrophil Count 5.3 X10^3/uL (2.0-7.7); Basophil# 0.06 X10^3/uL; Basophil% 0.8 % (0-1); Eosinophil# 0.07 X10^3/uL; Eosinophils% 0.9 % (0-5); Hematocrit 36.5 % (40-54); Hemoglobin 11.7 g/dL (13.0-16.5); Lymphocyte # 1.46 X10^3/ul (4.0); Lymphocyte % 19.5 % (19-41); Mean Corp Hgb Conc 32.1 g/dL (32-36); Mean Corpuscular Hgb 29.6 pg (27.0-32.0); Mean Corpuscular Volume 92.4 fL (80-94); Mean Platelet Vol. 10.5 fl (6.2-12.0); Monocyte# 0.62 X10^3/uL; Monocyte% 8.3 % (0-10); NRBC Flagged by Analyzer 0 % (0-5); Neutrophil # 5.26 X10^3/uL (2.7-7.7); Neutrophil % 70.1 % (47-70); Platelet Count 212 K/mm3 (150-450); RBC Distribution Width SD 47.2 fl (35.1-43.9); Red Blood Count 3.95 M/mm3 (4.6-6.2); White Blood Count 7.5 K/mm3 (4.4-11.0)
[2019-06-07 13:57] LABS: International Normalized Ratio 3.6
[2019-06-13 13:34] LABS: Prothrombin Time (Protime)PT. 38.5 SECONDS (11.7-14.9)
[2019-06-13 13:38] LABS: International Normalized Ratio 3.9
[2019-06-21 12:32] LABS: International Normalized Ratio 3.2; Prothrombin Time (Protime)PT. 32.8 SECONDS (11.7-14.9)
== END 2019-06-21 18:00 | disposition home or self-care (01) ==
LOC: LAB 11:59
PROVIDERS: Physician Assistant Medical; Family Provider Family Medicine Geriatric Medicine; PCP Family Medicine Geriatric Medicine; Referring Provider Internal Medicine Cardiovascular Disease; Visit Provider Internal Medicine Cardiovascular Disease
DX: I48.20 Chronic atrial fibrillation, unspecified (principal); Z79.01 Long term (current) use of anticoagulants
CPT/HCPCS: 36415; 85025; 85610

== ENCOUNTER 2019-07-19 10:29 | Outpatient (RCR) | payer MEDICARE, OTHER, SELFPAY ==
[2019-06-07 11:30] VITALS: BMI 24.4
[2019-07-05 12:13] LABS: Prothrombin Time (Protime)PT. 35.2 SECONDS (11.7-14.9)
[2019-07-05 12:19] LABS: International Normalized Ratio 3.5
[2019-07-19 11:45] LABS: International Normalized Ratio 2.9; Prothrombin Time (Protime)PT. 30.5 SECONDS (11.7-14.9)
== END 2019-07-19 18:00 | disposition home or self-care (01) ==
LOC: LAB 10:29
PROVIDERS: Family Provider Family Medicine Geriatric Medicine; PCP Family Medicine Geriatric Medicine; Referring Provider Internal Medicine Cardiovascular Disease; Visit Provider Internal Medicine Cardiovascular Disease
DX: I48.20 Chronic atrial fibrillation, unspecified (principal); Z79.01 Long term (current) use of anticoagulants
CPT/HCPCS: 36415; 85610

== ENCOUNTER 2019-08-23 10:38 | Outpatient (RCR) | payer MEDICARE, OTHER, SELFPAY ==
[2019-06-07 11:30] VITALS: BMI 24.4
[2019-08-02 12:14] LABS: Prothrombin Time (Protime)PT. 30.9 SECONDS (11.7-14.9)
[2019-08-23 12:31] LABS: International Normalized Ratio 3.3; Prothrombin Time (Protime)PT. 33.2 SECONDS (11.7-14.9)
== END 2019-08-24 18:00 | disposition home or self-care (01) ==
LOC: LAB 10:38
PROVIDERS: Family Provider Family Medicine Geriatric Medicine; PCP Family Medicine Geriatric Medicine; Referring Provider Internal Medicine Cardiovascular Disease; Visit Provider Internal Medicine Cardiovascular Disease
DX: I48.20 Chronic atrial fibrillation, unspecified (principal); Z79.01 Long term (current) use of anticoagulants
CPT/HCPCS: 36415; 85610

== ENCOUNTER 2019-09-12 11:48 | Outpatient (RCR) | payer MEDICARE, OTHER, SELFPAY ==
[2019-06-07 11:30] VITALS: BMI 24.4
[2019-09-12 11:30] VITALS: BMI 25.2
[2019-09-12 12:53] LABS: International Normalized Ratio 2.4
== END 2019-09-12 15:00 | disposition home or self-care (01) ==
LOC: LAB 11:48
PROVIDERS: Family Provider Family Medicine Geriatric Medicine; PCP Family Medicine Geriatric Medicine; Referring Provider Internal Medicine Cardiovascular Disease; Visit Provider Internal Medicine Cardiovascular Disease
DX: I48.20 Chronic atrial fibrillation, unspecified (principal); Z79.01 Long term (current) use of anticoagulants
CPT/HCPCS: 36415; 85610

== ENCOUNTER 2019-10-03 11:37 | Outpatient (RCR) | payer MEDICARE, OTHER, SELFPAY ==
[2019-10-03 12:24] LABS: International Normalized Ratio 2.3; Prothrombin Time (Protime)PT. 25.2 SECONDS (11.7-14.9)
== END 2019-10-03 18:00 | disposition home or self-care (01) ==
LOC: LAB 11:37
PROVIDERS: Nurse Practitioner Family; Family Provider Family Medicine Geriatric Medicine; PCP Family Medicine Geriatric Medicine; Referring Provider Internal Medicine Cardiovascular Disease; Visit Provider Internal Medicine Cardiovascular Disease
DX: I48.20 Chronic atrial fibrillation, unspecified (principal); Z79.01 Long term (current) use of anticoagulants
CPT/HCPCS: 85610

== ENCOUNTER → 2019-10-19 10:35 | Outpatient (CLI) | payer MEDICARE, OTHER, SELFPAY ==
[2018-12-02 14:30] VITALS: BMI 24.0
[2019-10-19 12:29] LABS: Absolute Neutrophil Count 4.4 X10^3/uL (2.0-7.7); Basophil# 0.04 X10^3/uL; Basophil% 0.6 % (0-1); Eosinophil# 0.11 X10^3/uL; Eosinophils% 1.5 % (0-5); Hematocrit 35.2 % (40-54); Hemoglobin 11.3 g/dL (13.0-16.5); Lymphocyte % 23.9 % (19-41); Mean Corp Hgb Conc 32.1 g/dL (32-36); Mean Corpuscular Volume 90.5 fL (80-94); Mean Platelet Vol. 10.4 fl (6.2-12.0); Monocyte% 11.3 % (0-10); NRBC Flagged by Analyzer 0 % (0-5); Neutrophil # 4.44 X10^3/uL (2.7-7.7); Neutrophil % 62.4 % (47-70); Platelet Count 245 K/mm3 (150-450); RBC Distribution Width CV 14.9 % (11.6-14.6); RBC Distribution Width SD 49.2 fl (35.1-43.9); Red Blood Count 3.89 M/mm3 (4.6-6.2); White Blood Count 7.1 K/mm3 (4.4-11.0)
[2019-10-19 12:43] LABS: Vitamin D,25 Hydroxy 57.4 ng/mL
[2019-10-19 13:16] LABS: AST(SGOT) 14 U/L (15-37); Alanine Aminotransfer ALT/SGPT 17 U/L (16-61); Albumin, Serum 3.5 g/dL (3.2-5.0); Alkaline Phosphatase 62 U/L (45-117); Anion Gap 7 (5-15); BUN 20 mg/dL (7-18); BUN/Creat Ratio 19.6 RATIO (10-20); Calcium,Total 9.5 mg/dL (8.5-10.1); Chloride 110 mmol/L (98-107); Creatinine, Serum 1.02 mg/dL (0.70-1.30); EST Glomerular Filtration Rate 74 mL/min (>60); Est Glom Filt Rate - Afr Amer 90 mL/min (>60); Globulin 3.5 g/dL (2.2-4.2); Glucose 95 mg/dL (74-106); Potassium 4.2 mmol/L (3.5-5.1); Sodium Level 143 mmol/L (136-145); Thyroid Stim Hormone (TSH) < 0.01 uIU/mL (0.358-3.74)
== END ==
PROVIDERS: PCP Family Medicine Geriatric Medicine; Visit Provider Family Medicine Geriatric Medicine
DX: I10 Essential (primary) hypertension (principal); E55.9 Vitamin D deficiency, unspecified; E05.90 Thyrotoxicosis, unspecified without thyrotoxic crisis or storm
CPT/HCPCS: 36415; 80053; 82306; 84443; 85025

== ENCOUNTER 2019-11-16 10:22 | Outpatient (RCR) | payer MEDICARE, OTHER, SELFPAY ==
[2019-11-16 11:57] LABS: International Normalized Ratio 1.9; Prothrombin Time (Protime)PT. 21.2 SECONDS (11.7-14.9)
== END 2019-11-16 18:00 | disposition home or self-care (01) ==
LOC: LAB 10:22
PROVIDERS: Family Provider Family Medicine Geriatric Medicine; PCP Family Medicine Geriatric Medicine; Referring Provider Internal Medicine Cardiovascular Disease; Visit Provider Internal Medicine Cardiovascular Disease
DX: I48.20 Chronic atrial fibrillation, unspecified (principal); Z79.01 Long term (current) use of anticoagulants
CPT/HCPCS: 36415; 85610

== ENCOUNTER 2019-12-01 10:26 | Outpatient (RCR) | payer MEDICARE, OTHER, SELFPAY ==
[2019-12-01 11:36] LABS: International Normalized Ratio 1.4; Prothrombin Time (Protime)PT. 16.7 SECONDS (11.7-14.9)
== END 2019-12-25 18:00 | disposition home or self-care (01) ==
LOC: LAB 10:26
PROVIDERS: Family Provider Family Medicine Geriatric Medicine; PCP Family Medicine Geriatric Medicine; Referring Provider Internal Medicine Cardiovascular Disease; Visit Provider Internal Medicine Cardiovascular Disease
DX: I48.20 Chronic atrial fibrillation, unspecified (principal); Z79.01 Long term (current) use of anticoagulants
CPT/HCPCS: 36415; 85610

== ENCOUNTER 2019-12-26 09:43 | Outpatient (RCR) | payer MEDICARE, OTHER, SELFPAY ==
[2019-12-26 10:37] LABS: International Normalized Ratio 2.4; Prothrombin Time (Protime)PT. 25.6 SECONDS (11.7-14.9)
== END 2019-12-26 18:00 | disposition home or self-care (01) ==
LOC: LAB 09:43
PROVIDERS: Family Provider Family Medicine Geriatric Medicine; PCP Family Medicine Geriatric Medicine; Referring Provider Internal Medicine Cardiovascular Disease; Visit Provider Internal Medicine Cardiovascular Disease
DX: I48.20 Chronic atrial fibrillation, unspecified (principal); Z79.01 Long term (current) use of anticoagulants
CPT/HCPCS: 36415; 85610

== ENCOUNTER 2020-02-22 10:19 | Outpatient (RCR) | payer MEDICARE, OTHER, SELFPAY ==
[2020-01-25 11:11] LABS: International Normalized Ratio 2.2; Prothrombin Time (Protime)PT. 24.1 SECONDS (11.7-14.9)
[2020-02-22 11:03] LABS: International Normalized Ratio 1.8
== END 2020-02-22 18:00 | disposition home or self-care (01) ==
LOC: LAB 10:19
PROVIDERS: Family Provider Family Medicine Geriatric Medicine; PCP Family Medicine Geriatric Medicine; Referring Provider Internal Medicine Cardiovascular Disease; Visit Provider Internal Medicine Cardiovascular Disease
DX: I48.20 Chronic atrial fibrillation, unspecified (principal); Z79.01 Long term (current) use of anticoagulants
CPT/HCPCS: 36415; 85610

== ENCOUNTER 2020-03-14 11:07 | Outpatient (RCR) | payer MEDICARE, OTHER, SELFPAY ==
[2020-03-14 11:43] LABS: Prothrombin Time (Protime)PT. 22.4 SECONDS (11.7-14.9)
== END 2020-03-14 18:00 | disposition home or self-care (01) ==
LOC: LAB 11:07
PROVIDERS: Family Provider Family Medicine Geriatric Medicine; PCP Family Medicine Geriatric Medicine; Referring Provider Internal Medicine Cardiovascular Disease; Visit Provider Internal Medicine Cardiovascular Disease
DX: I48.20 Chronic atrial fibrillation, unspecified (principal); Z79.01 Long term (current) use of anticoagulants
CPT/HCPCS: 36415; 85610

== ENCOUNTER 2020-04-11 15:13 | Outpatient (RCR) | payer MEDICARE, OTHER, SELFPAY ==
[2020-04-03 11:32] VITALS: BMI 24.8
[2020-04-11 15:39] LABS: International Normalized Ratio 3.1; Prothrombin Time (Protime)PT. 31.6 SECONDS (11.7-14.9)
== END 2020-04-11 18:00 | disposition home or self-care (01) ==
LOC: LAB 15:13
PROVIDERS: Family Provider Family Medicine Geriatric Medicine; PCP Family Medicine Geriatric Medicine; Referring Provider Internal Medicine Cardiovascular Disease; Visit Provider Internal Medicine Cardiovascular Disease
DX: I48.20 Chronic atrial fibrillation, unspecified (principal); Z79.01 Long term (current) use of anticoagulants
CPT/HCPCS: 36415; 85610

== ENCOUNTER → 2020-04-23 09:43 | Outpatient (CLI) | payer MEDICARE, OTHER, SELFPAY ==
[2020-04-03 11:32] VITALS: BMI 24.8
--- NOTE | 2020-04-23 11:01 | RAD_ITS ---
STUDY: X-RAY - ABDOMEN/PELVIS REASON FOR EXAM: Male, 84 years old. pain after eating, pt states and amp;quot;I have to run to bathroom after eating and amp;quot; TECHNIQUE: AP supine and upright views of the abdomen and pelvis. COMPARISON: None. FINDINGS: Normal visualized lung bases. Multiple bilateral kidney stones are noted in largest measure 6 mm. There is an unremarkable bowel gas pattern. There is no demonstrated free abdominal air. The visualized liver, spleen are grossly normal in size and morphology. Normal soft tissue structures. There are diffuse degenerative changes and dextroscoliosis of the visualized lumbar spine. RAD/Abd Inc Decub and/or Erect IMPRESSION: Bilateral kidney stones the largest measures 6 mm. Electronically Signed: Mickey Rose, at 12:02 EST Tel , Service support ,
[2020-04-23 12:13] LABS: Absolute Lymphocyte Count 1.39 X10^3/uL (0.83-4.51); Absolute Neutrophil Count 4.6 X10^3/uL (2.0-7.7); Basophil# 0.06 X10^3/uL; Basophil% 0.9 % (0-1); Eosinophil# 0.08 X10^3/uL; Eosinophils% 1.2 % (0-5); Hemoglobin 12.2 g/dL (13.0-16.5); Lymphocyte # 1.39 X10^3/ul (4.0); Lymphocyte % 20.6 % (19-41); Mean Corp Hgb Conc 32.1 g/dL (32-36); Mean Corpuscular Hgb 29.7 pg (27.0-32.0); Mean Corpuscular Volume 92.5 fL (80-94); Mean Platelet Vol. 10.6 fl (6.2-12.0); Monocyte# 0.61 X10^3/uL; Monocyte% 9.1 % (0-10); NRBC Flagged by Analyzer 0 % (0-5); Neutrophil # 4.58 X10^3/uL (2.7-7.7); Neutrophil % 67.9 % (47-70); Platelet Count 224 K/mm3 (150-450); RBC Distribution Width CV 14.7 % (11.6-14.6); RBC Distribution Width SD 49.6 fl (35.1-43.9); Red Blood Count 4.11 M/mm3 (4.6-6.2); White Blood Count 6.7 K/mm3 (4.4-11.0)
[2020-04-23 12:26] LABS: Vitamin D,25 Hydroxy 26.5 ng/mL
[2020-04-23 12:29] LABS: ALB/GLOB Ratio 1.1 RATIO (0.9-2.4); AST(SGOT) 14 U/L (15-37); Alanine Aminotransfer ALT/SGPT 21 U/L (16-61); Albumin, Serum 3.7 g/dL (3.2-5.0); Alkaline Phosphatase 66 U/L (45-117); Anion Gap 7 (5-15); BUN 17 mg/dL (7-18); BUN/Creat Ratio 14.7 RATIO (10-20); Calcium,Total 9.3 mg/dL (8.5-10.1); Chloride 109 mmol/L (98-107); Creatinine, Serum 1.16 mg/dL (0.70-1.30); EST Glomerular Filtration Rate 64 mL/min (>60); Est Glom Filt Rate - Afr Amer 77 mL/min (>60); Globulin 3.3 g/dL (2.2-4.2); Glucose 105 mg/dL (74-106); Sodium Level 143 mmol/L (136-145); Thyroid Stim Hormone (TSH) 0.24 uIU/mL (0.358-3.74)
== END ==
PROVIDERS: PCP Family Medicine Geriatric Medicine; Visit Provider Family Medicine Geriatric Medicine
DX: I10 Essential (primary) hypertension (principal); E55.9 Vitamin D deficiency, unspecified; N20.0 Calculus of kidney
CPT/HCPCS: 36415; 74019; 80053; 82306; 84443; 85025

== ENCOUNTER 2020-04-29 10:54 | Outpatient (RCR) | payer OTHER, SELFPAY ==
[2020-04-03 11:32] VITALS: BMI 24.8
[2020-04-29 12:51] LABS: International Normalized Ratio 2.5
== END 2020-04-29 18:00 | disposition home or self-care (01) ==
LOC: LAB 10:54
PROVIDERS: Family Provider Family Medicine Geriatric Medicine; PCP Family Medicine Geriatric Medicine; Referring Provider Internal Medicine Cardiovascular Disease; Visit Provider Internal Medicine Cardiovascular Disease
DX: I48.20 Chronic atrial fibrillation, unspecified (principal); Z79.01 Long term (current) use of anticoagulants
CPT/HCPCS: 36415; 85610

== ENCOUNTER 2020-06-17 10:42 | Outpatient (RCR) | payer MEDICARE, OTHER, SELFPAY ==
[2020-04-03 11:32] VITALS: BMI 24.8
[2020-06-17 11:49] LABS: International Normalized Ratio 1.4; Prothrombin Time (Protime)PT. 16.8 SECONDS (11.7-14.9)
[2020-06-17 12:08] LABS: Thyroid Stim Hormone (TSH) 1.15 uIU/mL (0.358-3.74)
== END 2020-06-17 18:00 | disposition home or self-care (01) ==
LOC: LAB 10:42
PROVIDERS: Family Provider Family Medicine Geriatric Medicine; PCP Family Medicine Geriatric Medicine; Referring Provider Internal Medicine Cardiovascular Disease; Visit Provider Internal Medicine Cardiovascular Disease
DX: I48.20 Chronic atrial fibrillation, unspecified (principal); Z79.01 Long term (current) use of anticoagulants; E03.9 Hypothyroidism, unspecified
CPT/HCPCS: 36415; 84443; 85610

== ENCOUNTER 2020-06-19 08:32 | Outpatient (RCR) | payer MEDICARE, SELFPAY ==
[2020-04-03 11:32] VITALS: BMI 24.8
== END 2020-06-19 23:59 ==
LOC: IMMUN 08:32
PROVIDERS: PCP Family Medicine Geriatric Medicine; Referring Provider Family Medicine; Visit Provider Family Medicine
DX: Z23 Encounter for immunization (principal)
CPT/HCPCS: 0011A; 0012A

== ENCOUNTER 2020-07-10 13:41 | Outpatient (RCR) | payer MEDICARE, SELFPAY ==
[2020-04-03 11:32] VITALS: BMI 24.8
[2020-06-25 11:14] LABS: International Normalized Ratio 1.9; Prothrombin Time (Protime)PT. 20.9 SECONDS (11.7-14.9)
[2020-07-10 14:20] LABS: International Normalized Ratio 2.6; Prothrombin Time (Protime)PT. 27.3 SECONDS (11.7-14.9)
[2020-07-11 16:21] LABS: Thyroid Stim Hormone (TSH) 1.24 uIU/mL (0.358-3.74)
== END 2020-07-10 18:00 | disposition home or self-care (01) ==
LOC: LAB 13:41
PROVIDERS: Family Provider Family Medicine Geriatric Medicine; PCP Family Medicine Geriatric Medicine; Referring Provider Internal Medicine Cardiovascular Disease; Visit Provider Internal Medicine Cardiovascular Disease
DX: I48.20 Chronic atrial fibrillation, unspecified (principal); E03.9 Hypothyroidism, unspecified; Z79.01 Long term (current) use of anticoagulants
CPT/HCPCS: 36415; 84443; 85610

== ENCOUNTER 2020-07-10 14:02 | Observation (INO) | payer MEDICARE, SELFPAY ==
[2020-04-03 11:32] VITALS: BMI 24.8
[2020-07-10] VITALS (9 sets, daily range): BP systolic 93–158; BP diastolic 70–99; PULSE 79–112; RESP 16–25; TEMP 36.3–36.8; O2SAT 94–100; BMI 25.4; BMI 25.5; BMI 27.2
--- NOTE | 2020-07-10 14:19 | EKG12_ITS ---
Test Reason : BACK PAIN Blood Pressure : / mmHG Vent. Rate : 106 BPM Atrial Rate : 081 BPM P-R Int : 000 ms QRS Dur : 102 ms QT Int : 336 ms P-R-T Axes : 000 010 024 degrees QTc Int : 446 ms Atrial fibrillation with rapid ventricular response Nonspecific ST and T wave abnormality Abnormal ECG Confirmed by QUINTEN TABOR, HARRY ([id number]), editor newspaper LEESA MARTINEZ ([id number]) on 07/11/2020 12:50:16 PM Referred By: RBE Confirmed By:HARRY SHIPLEY MD
--- NOTE | 2020-07-10 14:20 | CT_ITS ---
STUDY: CTA CHEST AND CT ABDOMEN/PELVIS WITH CONTRAST REASON FOR EXAM: Male, 85 years old. Back pain, concern for dissection RADIATION DOSAGE (If Supplied By Facility): CTDIvol = ( 13.63 ) mGy, DLP = ( 1075.39 ) mGycm TECHNIQUE: The examination was performed with the intravenous administration of IV 100mL Isovue-370. Post-processing of the angiographic images was performed, with multiplanar reformation and 3D reconstruction. Individualized dose optimization techniques were used for this CT. COMPARISON: Comparison is made with prior CT of the chest dated 01/07/2018. 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 Normal enhancement of the main pulmonary artery and right and left pulmonary arteries. Normal enhancement of the bilateral peripheral pulmonary arteries. There is no demonstrated pulmonary embolism. There is atherosclerotic calcification of the aortic arch and descending thoracic aorta with tortuosity. There is no demonstrated aortic dissection. 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 There are calcifications of the coronary arteries. There are visualized mediastinal lymph nodes, which are within normal size limits, and with normal morphology. Normal hilar regions. Normal visualized trachea and bronchi. Hyperinflation Mild degree of emphysematous changes more prominent in the upper lobes with centrilobular emphysematous changes. Small bilateral pleural effusions slightly more prominent on the left side. Normal chest wall structures. There are degenerative changes of thoracic spine. Normal visualized upper abdomen. CT Abdomen T Pelvis The visualized lung bases are unremarkable. The visualized portions of the heart are within normal limits. Normal liver. Normal gallbladder and extrahepatic biliary system. Normal spleen. Normal pancreas. Normal bilateral adrenal glands. There is evidence of a bilateral renal atrophy worse on the left side. Mild right hydronephrosis most likely secondary to an extrarenal pelvis. There is evidence of a 6.5 center by 5.8 cm cyst in the mid lower pole of the left kidney. Mild degree of left hydronephrosis. Multiple tiny nonobstructing bilateral intrarenal calculi. Normal visualized stomach. Normal small intestine. Normal colon. The appendix is visualized and appears normal. There is diffuse atherosclerotic calcification of the abdominal aorta, without a demonstrated aneurysm. 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 Normal inferior vena cava. Normal retroperitoneum. Normal urinary bladder. There are prostatic calcifications. Normal abdominal wall. There are diffuse degenerative changes of the visualized lumbar spine. CT/CTA Chst, Abd, Pel W and/or WO IMPRESSION: No evidence of aortic dissection although there is evidence of a calcific plaques throughout. 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 Bilateral renal atrophy worse on the left side with multiple tiny bilateral intrarenal calculi. Small bilateral pleural effusions slightly worse on the left side with evidence of emphysematous changes. Electronically Signed: Royer Pineda MD at 15:05 EDT , Service support ,
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
[2020-07-10] MEDS: Ondansetron 4 MG/2 ML Vial IV (14:26)
[2020-07-10] MEDS: fentaNYL 100 MCG/2 ML Ampul 50 MCG IV (14:26)
[2020-07-10] MEDS: 0.9% Normal Saline 1,000 ML 1000 ML IV (14:27)
[2020-07-10 14:50] LABS: Absolute Lymphocyte Count 1.18 X10^3/uL (0.83-4.51); Absolute Neutrophil Count 5.3 X10^3/uL (2.0-7.7); Basophil# 0.04 X10^3/uL; Basophil% 0.5 % (0-1); Eosinophil# 0.09 X10^3/uL; Eosinophils% 1.2 % (0-5); Hematocrit 37.5 % (40-54); Lymphocyte # 1.18 X10^3/ul (4.0); Mean Corpuscular Hgb 29.9 pg (27.0-32.0); Mean Corpuscular Volume 93.3 fL (80-94); Mean Platelet Vol. 10.6 fl (6.2-12.0); Monocyte# 0.76 X10^3/uL; Monocyte% 10.3 % (0-10); NRBC Flagged by Analyzer 0 % (0-5); Neutrophil # 5.28 X10^3/uL (2.7-7.7); Neutrophil % 71.7 % (47-70); Platelet Count 199 K/mm3 (150-450); RBC Distribution Width CV 13.8 % (11.6-14.6); RBC Distribution Width SD 46.8 fl (35.1-43.9); Red Blood Count 4.02 M/mm3 (4.6-6.2); White Blood Count 7.4 K/mm3 (4.4-11.0)
[2020-07-10 15:12] LABS: Lactic Acid 1.8 mmol/L (0.4-1.9)
[2020-07-10 15:15] LABS: ALB/GLOB Ratio 0.9 RATIO (0.9-2.4); AST(SGOT) 14 U/L (15-37); Alanine Aminotransfer ALT/SGPT 18 U/L (16-61); Albumin, Serum 3.5 g/dL (3.2-5.0); Alkaline Phosphatase 67 U/L (45-117); Anion Gap 8 (5-15); BUN 18 mg/dL (7-18); BUN/Creat Ratio 14.3 RATIO (10-20); Calcium,Total 9.1 mg/dL (8.5-10.1); Chloride 110 mmol/L (98-107); Creatinine, Serum 1.26 mg/dL (0.70-1.30); EST Glomerular Filtration Rate 58 mL/min (>60); Est Glom Filt Rate - Afr Amer 70 mL/min (>60); Estimated Creatinine Clearance 37.96 ml/min; Globulin 3.7 g/dL (2.2-4.2); Glucose 108 mg/dL (74-106); Lipase 222 U/L (73-393); Potassium 4.4 mmol/L (3.5-5.1); Protein, Total 7.2 g/dL (6.4-8.2); Sodium Level 141 mmol/L (136-145)
[2020-07-10 16:03] LABS: Bacteria 0 SEEN /hpf (None Seen); Mucous, Urine 0 SEEN /hpf (<or=2+); Squamous Epithelial Cells - UA 0 SEEN /hpf (0-5)
[2020-07-10 16:07] LABS: Color, Urine Yellow (Yellow); Glucose, Dipstick Normal (Normal); Ketone-Dipstick Negative (Negative); Leukocyte Esterase-Dipstick 25 /ul (Negative); Nitrite-Dipstick Negative (Negative); Occult Blood-Urine 25 /ul (Negative); Protein-Dipstick Negative (Negative); Urine Bilirubin Dipstick Negative (Negative); Urine Clarity Clear (Clear); Urine Urobilinogen Normal (Normal); Urine pH 6.5 (5.0 - 8.0)
[2020-07-10 16:16] LABS: Red Blood Cells-Urine 0-5 SEEN /hpf (0-5); White Blood Cells 0-5 SEEN /hpf (0-5)
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
[2020-07-10] MEDS: diazePAM 5 MG Tablet PO (18:03)
[2020-07-10] MEDS: Morphine 4 MG/ML Syringe IV (18:04)
--- NOTE | 2020-07-10 18:36 | HP.PCM_ITS ---
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 (5) Atherosclerosis of coronary artery of [place] heart without angina pectoris Status: Chronic Qualifiers: Coronary Disease-Associated Artery/Lesion type: [place] artery Qualified Code(s): I25.10 - Atherosclerotic heart disease of [place] coronary artery without angina pectoris (6) Chronic atrial fibrillation Status: Chronic (7) Chronic diastolic (congestive) heart failure Status: Chronic (8) Kidney disease, chronic, stage III (GFR 30-59 ml/min) Status: Chronic (9) Hypothyroidism Status: Chronic (10) Cardiac pacemaker Status: Chronic Comment: Pacemaker implant June 2005; Pacemaker generator change 11/28/12; (11) Presence of stent in coronary artery Status: Chronic Comment: 02/20/98 PTCA to end stent restenosis of mid cx; 07/18/97 PTCA/stent of obtuse marginal & distal CX; 09/13/97 Rotational atherectomy of CX; 09/25/97, 11/01/97 PTSC/stent of CX; PTCA with stenting of LAD 02/21/03; (12) BPH (benign prostatic hyperplasia) Status: Chronic History of Present Illness Date of Admission: 07/10/20 Chief Complaint: Back pain The patient is a 85 year old M who presented to the ER today with intractable back pain which he reports runs across his back at the bottom of the shoulder blades. Patient denies fall or injury to the area. Patient denies fever, chills, chest pain, shortness of breath, cough, nausea, vomiting. CT chest notes iterative changes of thoracic spine. Patient denies story of back surgery and states I have never had back pain like this. 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) Atherosclerosis of coronary artery of [place] heart without angina pectoris (Chronic) Chronic atrial fibrillation (Chronic) Encounter for long-term current use of high risk medication (Chronic) Abnormal result of cardiovascular function study (Chronic) Chronic diastolic (congestive) heart failure (Chronic) Atherosclerosis of coronary artery bypass graft without angina pectoris (Chronic) 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) CABG November 1997, ROMERO to LAD, SVG from aorta to ramus intermedius artery Sick sinus syndrome (Chronic) Kidney disease, chronic, stage III (GFR 30-59 ml/min) (Chronic) Hypothyroidism (Chronic) Cardiac pacemaker (Chronic) Pacemaker implant June 2005; Pacemaker generator change 11/28/12; Medical History: Medical History (Last Reviewed 07/10/20 @ 18:42 by Yolie Sexton, TRACTOR DRILL OPERATOR-C) Presence of stent in coronary artery (Chronic) Onset Date: ~02/21/03 Z95.5 02/20/98 PTCA to end stent restenosis of mid cx; 07/18/97 PTCA/stent of obtuse marginal & distal CX; 09/13/97 Rotational atherectomy of CX; 09/25/97, 11/01/97 PTSC/stent of CX; PTCA with stenting of LAD 02/21/03; Pure hypercholesterolemia (Chronic) E78.00 Essential hypertension (Chronic) I10 FPC (current) use of anticoagulants (Chronic) Z79.01 Atherosclerosis of coronary artery of [place] heart without angina pectoris (Chronic) I25.10 Chronic atrial fibrillation (Chronic) I48.2 Atherosclerosis of coronary artery bypass graft without angina pectoris ( Chronic) I25.810 Cardiac pacemaker (Chronic) Z95.0 Pacemaker implant June 2005; Pacemaker generator change 11/28/12; Anemia D64.9 Cardiomyopathy I42.9 Hyperthyroidism E05.90 Doing well on medication. Lab studies not complete. Will have patient return to lab today. Will have patient call for reuslts and thend etermine what action needed. Will then repeat labs again in 3-4 weeks. 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 Thyroid dysfunction E07.9 Afib (Inactive) I48.91 Coronary artery disease (Inactive) I25.10 Allergies No Known Allergies Allergy (Verified 07/10/20 14:06) Home Medications: Ambulatory Orders Medication Instructions Recorded Omeprazole [Prilosec] 20 mg PO DAILY 02/19/15 Rosuvastatin Calcium [Crestor] 40 mg PO DAILY 02/19/15 Tamsulosin HCl [Flomax] 0.4 mg PO DAILY 07/29/17 acetaminophen 650 mg 1,300 mg PO TID tab 07/15/18 tablet,extended release mirabegron 50 mg tablet,extended 50 mg PO DAILY 07/15/18 release 24 hr nitroglycerin 0.4 mg sublingual 0.4 mg SUBLINGUAL Q5M PRN #25 tab 04/23/20 tablet Finasteride [Proscar] 5 mg PO DAILY 07/10/20 Levothyroxine Sodium [Synthroid] 25 mcg PO DAILY 07/10/20 Multivitamins,Therapeutic 1 tablet PO DAILY 07/10/20 [Multivitamin] Warfarin Sodium 4 mg PO SUTHFRSA 07/10/20 Warfarin Sodium 6 mg PO MOTUWE 07/10/20 Surgical History: Surgical History (Last Reviewed 07/10/20 @ 18:44 by Yolie Sexton, TRACTOR DRILL OPERATOR-C) 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) Onset Date: ~1997 Z95.1 CABG November 1997, ROMERO to LAD, SVG from aorta to ramus intermedius artery H/O hernia repair Z98.890, Z87.19 Presence of coronary angioplasty implant and graft Onset Date: ~02/21/03 Z95.5 02/20/98 PTCA to end stent restenosis of mid cx; 07/18/97 PTCA/stent of obtuse marginal & distal CX; 09/13/97 Rotational atherectomy of CX; 09/25/97, 11/01/97 PTSC/stent of CX; PTCA with stenting of LAD 02/21/03; ureteral stent Eyelid retraction unspecified eye, unspecified lid H02.539 H/O myringoplasty Z98.890 Hx of CABG Z95.1 Hx of cholecystectomy Z98.890, Z90.49 Surgical History: cholecystectomy, coronary bypass surgery, herniorrhaphy, - Psychiatric History: No pertinent psych hx Lives: Alone Smoking Status: Former smoker Tobacco Use: Cigarettes - *Family History Paternal Family History: Family History (Last Reviewed 04/03/20 @ 11:38 by Trice Chu) Father Lung cancer CVA (cerebral vascular accident) Brother Sudden cardiac History Items: Cancer, - Maternal Family History: Family History (Last Reviewed 04/03/20 @ 11:38 by Trice Chu) Father Lung cancer CVA (cerebral vascular accident) Brother Sudden cardiac History Items: - - according to her she had every disease known to man in her sleep Review of Systems Constitutional: Denies: Chills, Fever, Weight Change HEENT: Denies: Head Aches, Sinus Congestion, Sinus Drainage Cardiovascular: Denies: Chest Pain, Palpitations Respiratory: Denies: Cough, Shortness of Breath, Shortness of breath at rest, Sputum production Gastrointestinal: Denies: Abdominal Pain, Nausea, Vomiting Genitourinary: Denies: Dysuria Musculoskeletal: Reports: Back Pain - Severe midthoracic. Denies: Joint Pain, Joint Tenderness Skin: Denies: Rash, Wounds Neurological: Denies: Numbness, Tingling, Focal weakness Psychiatric: Denies: Anxiety, Depression, Homicidal Ideations, Suicidal Ideations Hematologic/ Lymphatic: Denies: Easy Bruising, Easy Bleeding VTE Information - Inpt Only VTE Present on Admission: No VTE Mechan Device Prophylaxis: SCD's Reason prophylaxis not ordered:: Treatment Not Indicated - On Coumadin Patient Problems: Active and Suspected Problems (Last Reviewed 07/10/20 @ 18:42 by Yolie Sexton NP-C) Intractable back pain (Acute) - Physical Exam Vitals/I&O's: Vital Signs Temp Pulse Resp BP Pulse Ox 97.3 F L 111 H 25 H 144/93 H 96 07/10/20 18:34 07/10/20 18:34 07/10/20 18:34 07/10/20 18:34 07/10/20 18:34 Oxygen Delivery Method Room Air Weight: 153 lb Body Mass Index (BMI) 25.4 Intake and Output for Last 24 Hours 07/08/20 07/09/20 07/10/20 23:59 23:59 23:59 Intake Total 1000 / 1000 Balance 1000 / 1000 General: Alert, Oriented x3, Cooperative HEENT: Atraumatic, PERRLA, EOMI, Normocephalic Neck: Supple, No JVD, Negative Carotid Bruits Lungs: Clear to auscultation, Normal air movement, Diminished Cardiovascular: Regular rate, Normal S1, Normal S2, No murmurs, Irregular Rate Abdomen: Bowel Sounds Present, Soft, Non Tender Extremities: No edema, Capillary Refill Less than 3 Seconds, Peripheral Pulses Normal Skin: No rashes, No breakdown Musculoskeletal: No Tenderness to Palpation of Joints or Extremities Neurological: Cranial nerves II-XII grossly intact Psych/Mental Status: Normal Affect, Appropriate Laboratory Results 07/10/20 14:35: WBC 7.4, RBC 4.02 L, Hgb 12.0 L, Hct 37.5 L, MCV 93.3, MCH 29.9, MCHC 32.0, RDW Std Deviation 46.8 H, RDW Coeff of Del 13.8, Plt Count 199, MPV 10.6, Immature Gran % (Auto) 0.300, Neut % (Auto) 71.7 H, Lymph % (Auto) 16.0 L, Gibson % (Auto) 10.3 H, Eos % (Auto) 1.2, Baso % (Auto) 0.5, Absolute Neuts (auto) 5.3, Absolute Lymphs (auto) 1.18, Nucleated RBC % 0 07/10/20 14:35: Sodium 141, Potassium 4.4, Chloride 110 H, Carbon Dioxide 23.0, Anion Gap 8, BUN 18, Creatinine 1.26, Estim Creat Clear Calc 37.96, Est GFR (MDRD) Af Amer 70, Est GFR (MDRD) Non-Af 58 L, BUN/Creatinine Ratio 14.3, Glucose 108 H, Calcium 9.1, Total Bilirubin 0.30, AST 14 L, ALT 18, Alkaline Ph osphatase 67, Troponin I < 0.015, Total Protein 7.2, Albumin 3.5, Globulin 3.7, Albumin/Globulin Ratio 0.9, Lipase 222 07/10/20 14:35: Lactic Acid 1.8 07/10/20 15:58: Urine Color Yellow, Urine Clarity Clear, Urine pH 6.5, Ur Specific [place] 1.010, Urine Protein Negative, Urine Glucose (UA) Normal, Urine Ketones Negative, Urine Occult Blood 25 H, Urine Nitrite Negative, Urine Bilirubin Negative, Urine Urobilinogen Normal, Ur Leukocyte Esterase 25 H, Urine RBC 0-5 SEEN, Urine WBC 0-5 SEEN, Ur Squamous Epith Cells 0 SEEN, Urine Bacteria 0 SEEN, Urine Mucus 0 SEEN Assessment/Plan All Active Problems (Last Reviewed 07/10/20 @ 18:42 by MAYANK Li) Intractable back pain (Acute) 1. Intractable back pain-we will admit as medical surgical nontelemetry for observation. PT and OT to eval and treat. Morphine prn ordered for pain. 2. Essential hypertension-currently not on medications. 3. Chronic atrial fibrillation-continue warfarin home regimen. INR 2.6. 4. Chronic kidney disease stage III-BUN and creatinine consistent with patient baseline. 5. Atherosclerosis of coronary artery of [place] heart without angina pectoris with presence of stent. 02/20/98 PTCA to end stent restenosis of mid cx; 07/18/97 PTCA/stent of obtuse marginal & distal CX; 09/13/97 Rotational atherectomy of CX; 09/25/97, 11/01/97 PTSC/stent of CX; PTCA with stenting of LAD 02/21/03. Patient not currently on medication. 6. Pure hypercholesterolemia-continue rosuvastatin. 7. Hypothyroidism-continue levothyroxine. 8. BPH-continue Proscar and Flomax. 9. Presence of cardiac pacemaker-EKG shows A. fib with heart rate 106. 10. Long-term use of anticoagulants-continue warfarin, INR 2.6. DVT prophylaxis-not indicated, patient on Coumadin and therapeutic. This patient was seen by MAYANK Li under the supervision of Dr. Leary. 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 Lab studies not complete. Will have patient return to lab today. Will have patient call for reuslts and thend etermine what action needed. Will then repeat labs again in 3-4 weeks. 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 hypertension I10 Partial bowel obstruction K56.600 Partial bowel obstruction K56.600 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 Thyroid dysfunction E07.9 Afib (Inactive) I48.91 Coronary artery disease (Inactive) I25.10 Allergies No Known Allergies Allergy (Verified 07/10/20 14:06) Surgical History: Surgical History (Last Reviewed 07/10/20 @ 18:44 by Yolie Sexton, TRACTOR DRILL OPERATOR-C) 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) Onset Date: ~1997 Z95.1 CABG November 1997, ROMERO to LAD, SVG from aorta to ramus intermedius artery H/O hernia repair Z98.890, Z87.19 Presence of coronary angioplasty implant and graft Onset Date: ~02/21/03 Z95.5 02/20/98 PTCA to end stent restenosis of mid cx; 07/18/97 PTCA/stent of obtuse marginal & distal CX; 09/13/97 Rotational atherectomy of CX; 09/25/97, 11/01/97 PTSC/stent of CX; PTCA with stenting of LAD 02/21/03; ureteral stent Eyelid retraction unspecified eye, unspecified lid H02.539 H/O myringoplasty Z98.890 Hx of CABG Z95.1 Hx of cholecystectomy Z98.890, Z90.49 - *Family History Paternal Family History: Family History (Last Reviewed 04/03/20 @ 11:38 by Trice Chu) Father Lung cancer CVA (cerebral vascular accident) Brother Sudden cardiac Maternal Family History: Family History (Last Reviewed 04/03/20 @ 11:38 by Trice Chu) Father Lung cancer CVA (cerebral vascular accident) Brother Sudden cardiac - Physical Exam Vitals/I&O's: Vital Signs Temp Pulse Resp BP Pulse Ox 97.3 F L 111 H 25 H 144/93 H 96 07/10/20 18:34 07/10/20 18:34 07/10/20 18:34 07/10/20 18:34 07/10/20 18:34 Oxygen Delivery Method Room Air Weight: 69.4 kg Body Mass Index (BMI) 25.4 Intake and Output for Last 24 Hours 07/08/20 07/09/20 07/10/20 23:59 23:59 23:59 Intake Total 1000 / 1000 Balance 1000 / 1000 Laboratory Results 07/10/20 14:35: WBC 7.4, RBC 4.02 L, Hgb 12.0 L, Hct 37.5 L, MCV 93.3, MCH 29.9, MCHC 32.0, RDW Std Deviation 46.8 H, RDW Coeff of Del 13.8, Plt Count 199, MPV 10.6, Immature Gran % (Auto) 0.300, Neut % (Auto) 71.7 H, Lymph % (Auto) 16.0 L, Gibson % (Auto) 10.3 H, Eos % (Auto) 1.2, Baso % (Auto) 0.5, Absolute Neuts (auto) 5.3, Absolute Lymphs (auto) 1.18, Nucleated RBC % 0 07/10/20 14:35: Sodium 141, Potassium 4.4, Chloride 110 H, Carbon Dioxide 23.0, Anion Gap 8, BUN 18, Creatinine 1.26, Estim Creat Clear Calc 37.96, Est GFR (MDRD) Af Amer 70, Est GFR (MDRD) Non-Af 58 L, BUN/Creatinine Ratio 14.3, Glucose 108 H, Calcium 9.1, Total Bilirubin 0.30, AST 14 L, ALT 18, Alkaline Phosphatase 67, Troponin I < 0.015, Total Protein 7.2, Albumin 3.5, Globulin 3.7, Albumin/Globulin Ratio 0.9, Lipase 222 07/10/20 14:35: Lactic Acid 1.8 07/10/20 15:58: Urine Color Yellow, Urine Clarity Clear, Urine pH 6.5, Ur Specific [place] 1.010, Urine Protein Negative, Urine Glucose (UA) Normal, Urine Ketones Negative, Urine Occult Blood 25 H, Urine Nitrite Negative, Urine Bilirubin Negative, Urine Urobilinogen Normal, Ur Leukocyte Esterase 25 H, Urine RBC 0-5 SEEN, Urine WBC 0-5 SEEN, Ur Squamous Epith Cells 0 SEEN, Urine Bacteria 0 SEEN, Urine Mucus 0 SEEN 07/10/20 18:30: PT 27.0 H, INR 2.6 Current Medications Acetaminophen (Acetaminophen 500 Mg Tablet) 1,000 mg PO Q8 [facility] Al Hydroxide/Mg Hydroxide (Mag Hydrox/Al Hydrox/Simeth 30 Ml Udc) 30 ml PO Q6H PRN PRN PRN Reason: Gastric Burning Atorvastatin Calcium (Atorvastatin Calcium 20 Mg Tablet) 20 mg PO QHS [facility] Cyclobenzaprine HCl (Cyclobenzaprine Hcl 10 Mg Tablet) 10 mg PO X1 ONE Stop: 07/10/20 21:37 Finasteride (Finasteride 5 Mg Tablet) 5 mg PO DAILY [facility] Levothyroxine Sodium (Levothyroxine 25 Mcg Tablet) 25 mcg PO DAILY@0600 [facility] Mirabegron (Mirabegron 50 Mg Tab.Er.24h) 50 mg PO DAILY [facility] Morphine Sulfate (Morphine 2 Mg/Ml Syringe) 2 mg IV Q3H PRN PRN PRN Reason: Pain Score 6-10 Multivitamins (Multivitamins,Therapeutic Tablet) 1 tablet PO DAILYCM [facility] Ondansetron HCl (Ondansetron 4 Mg/2 Ml Vial) 4 mg IV Q8H PRN PRN PRN Reason: NAUSEA/VOMITING Oxycodone HCl (Oxycodone 5 Mg Tablet) 5 mg PO Q6H PRN PRN PRN Reason: Pain Score 6-10 Pantoprazole Sodium (Pantoprazole Sodium 20 Mg Tablet) 20 mg PO DAILY [facility] Sodium Chloride (0.9% Saline Lock 10 Ml Syringe) 10 - 40 ml IV UD PRN PRN Reason: SALINE FLUSH Tamsulosin HCl (Tamsulosin Hcl 0.4 Mg Capsule) 0.4 mg PO DAILY [facility] Warfarin Sodium (Warfarin 4 Mg Tablet) 4 mg PO SuThFrSa@1700 [facility] Warfarin Sodium (Warfarin 6 Mg Tablet) 6 mg PO MoTuWe@1700 [facility] Assessment/Plan This patient was seen in conjunction with Yolie Sexton NP. I have independently interviewed and examined the patient and reviewed pertinent historical, laboratory, and other data. Please refer to her note for patient's presentation, findings, and recommendations. 85 y/o male with multiple co-morbidities who comes in with acute onset of low back pain ongoing for 2 days, worse on the day of admission. Patient was having his blood drawn in the lab when he started to have severe back pain. He denied any trauma, fall, incontinence of urine and stool. He denies any fever or chills or tinging or numbness to lower extremities. CTA of pelvis/abdomen/chest was negative for aortic dissection. It showed extensive arterial calcification, more in the superior mesenteric artery distribution. Vitals were reviewed -stable Physical Exam: Gen: Looks in some discomfort, appears in pain, not pale, not jaundiced, alert oriented x3 CVS:HS I +II, regular, no murmurs RESP: Diminished at lung bases GI: BS present and normal, nontender, no palpable organs EXT:No edema Labs reviewed: ASSESSMENT: 1. Acute intractable back pain/muscle spams 2. New wounds in back from heating pads 3. Hypertension 4. Chronic atrial fibrillation 5. CAD s/p stents, PCI 6. Hypothyroidism 7. BPH 8.S/p pacemaker 9. Hyperlipidemia Meds reviewed Plan: Will treat back spasm with Tylenol, flrxeril, oxycodone Continue rest of home meds Pt/OT to evaluate and treat If pain persists, consider MRI L/S spine OBSV E&M: [id number] Initial observation care L3
[2020-07-10 18:52] LABS: International Normalized Ratio 2.6
[2020-07-10] MEDS: Acetaminophen 500 MG Tablet 1000 MG PO (22:38)
[2020-07-10] MEDS: Atorvastatin Calcium 20 MG Tablet PO (22:39)
[2020-07-10] MEDS: cycloBENZAPRine HCl 10 MG Tablet PO (22:39)
[2020-07-10] MEDS: oxyCODONE 5 MG Tablet PO (23:45)
[2020-07-11] VITALS (14 sets, daily range): BP systolic 78–161; BP diastolic 44–84; PULSE 79–109; RESP 14–18; TEMP 36.2–36.7; O2SAT 94–100
[2020-07-11] MEDS: Acetaminophen 500 MG Tablet 1000 MG PO ×3 (05:15→21:58)
[2020-07-11] MEDS: Levothyroxine 25 MCG TABLET PO (05:16)
[2020-07-11] MEDS: cycloBENZAPRine HCl 5 MG TABLET PO ×2 (05:16→13:59)
[2020-07-11 06:21] LABS: Absolute Lymphocyte Count 0.87 X10^3/uL (0.83-4.51); Absolute Neutrophil Count 5.9 X10^3/uL (2.0-7.7); Basophil# 0.03 X10^3/uL; Basophil% 0.4 % (0-1); Eosinophil# 0.13 X10^3/uL; Eosinophils% 1.7 % (0-5); Hemoglobin 10.9 g/dL (13.0-16.5); Lymphocyte # 0.87 X10^3/ul (4.0); Lymphocyte % 11.3 % (19-41); Mean Corp Hgb Conc 32.1 g/dL (32-36); Mean Corpuscular Volume 93.7 fL (80-94); Monocyte# 0.73 X10^3/uL; Monocyte% 9.5 % (0-10); NRBC Flagged by Analyzer 0 % (0-5); Neutrophil # 5.94 X10^3/uL (2.7-7.7); Platelet Count 176 K/mm3 (150-450); RBC Distribution Width CV 13.9 % (11.6-14.6); RBC Distribution Width SD 48.1 fl (35.1-43.9); Red Blood Count 3.63 M/mm3 (4.6-6.2); White Blood Count 7.7 K/mm3 (4.4-11.0)
[2020-07-11 06:30] LABS: International Normalized Ratio 2.6; Prothrombin Time (Protime)PT. 27.8 SECONDS (11.7-14.9)
[2020-07-11 06:48] LABS: ALB/GLOB Ratio 0.9 RATIO (0.9-2.4); AST(SGOT) 13 U/L (15-37); Alanine Aminotransfer ALT/SGPT 15 U/L (16-61); Albumin, Serum 3.1 g/dL (3.2-5.0); Alkaline Phosphatase 65 U/L (45-117); Anion Gap 4 (5-15); BUN 15 mg/dL (7-18); BUN/Creat Ratio 14.9 RATIO (10-20); Calcium,Total 8.8 mg/dL (8.5-10.1); Chloride 109 mmol/L (98-107); Creatinine, Serum 1.01 mg/dL (0.70-1.30); EST Glomerular Filtration Rate 75 mL/min (>60); Est Glom Filt Rate - Afr Amer 91 mL/min (>60); Estimated Creatinine Clearance 47.36 ml/min; Globulin 3.3 g/dL (2.2-4.2); Glucose 93 mg/dL (74-106); Potassium 4.4 mmol/L (3.5-5.1); Protein, Total 6.4 g/dL (6.4-8.2); Sodium Level 139 mmol/L (136-145)
[2020-07-11] MEDS: Pantoprazole Sodium 20 MG Tablet PO (08:31)
[2020-07-11] MEDS: Tamsulosin HCl 0.4 MG Capsule PO (08:31)
[2020-07-11] MEDS: Multivitamins,Therapeutic Tablet 1 TABLET PO (08:31)
[2020-07-11] MEDS: Mirabegron 50 MG TAB.ER.24H PO (08:31)
[2020-07-11] MEDS: Finasteride 5 MG Tablet PO (08:32)
[2020-07-11] MEDS: 0.9% Saline Lock 10 ML Syringe IV ×2 (08:32→09:46)
[2020-07-11] MEDS: Morphine 2 MG/ML Syringe IV (09:45)
--- NOTE | 2020-07-11 11:01 | CT_ITS ---
STUDY: CT THORACIC SPINE WITHOUT CONTRAST REASON FOR EXAM: Male, 85 years old. interact able mid back pain RADIATION DOSAGE (If Supplied By Facility): CTDIvol = ( 15.85 ) mGy, DLP = ( 1069.69 ) mGycm TECHNIQUE: The patient was scanned in a multi detector CT scanner. High resolution imaging was performed. Images were obtained from T1 to T12. Sagittal and coronal images were reconstructed. Individualized dose optimization techniques were used for this CT. COMPARISON: None. FINDINGS: Small bilateral pleural effusions left greater than right. Kyphotic deformity at the T12-L1 level. Marked degree of disc space narrowing at the T12-L1 level with the approximately 50% loss of height of the T12 and L1 vertebrae. This most likely is chronic in nature. Hhere is no substantial scoliosis. Diffuse demineralization. There is multilevel degenerative disc disease with loss of the disc space heights. Mild to moderate degree of central canal stenosis at the T12-L1 level. Atherosclerotic calcification of the abdominal aorta. CT/Spine Thoracic without Contras IMPRESSION: Kyphotic deformity at the T12-L1 level with the loss of height of the T12 and L1 vertebrae most likely chronic in nature or disc causes mild to moderate degree of central canal stenosis. Small bilateral pleural effusions. Electronically Signed: Royer Pineda MD at 12:30 EDT , Service support ,
--- NOTE | 2020-07-11 11:02 | CT_ITS ---
STUDY: CT LUMBAR SPINE WITHOUT CONTRAST REASON FOR EXAM: Male, 85 years old. Low back pain RADIATION DOSAGE (If Supplied By Facility): CTDIvol = ( 15.85 ) mGy, DLP = ( 1069.69 ) mGycm TECHNIQUE: The patient was scanned in a multi detector CT scanner. High resolution transaxial imaging was performed. Images were obtained from L1 to S1 vertebral level. Sagittal and coronal images were reconstructed. Individualized dose optimization techniques were used for this CT. COMPARISON: None FINDINGS: Normal lumbar lordosis. There is no substantial scoliosis. Osteopenia of the vertebrae. T12-L1: Marked degree of disc space narrowing with fusion. 50% loss of height of the T12 and L1 vertebrae with kyphotic deformity at that site. There is evidence of a uxyr-ay-vxsphdoc degree of central canal stenosis. Minimal retrolisthesis of L1 on L2. L1-2: Normal endplates. Normal disc height and morphology. Normal bilateral facet joints. Normal central canal and bilateral lateral recesses. Normal bilateral intervertebral neural foramina. L2-3: Normal endplates. Normal disc height and morphology. Normal bilateral facet joints. Normal central canal and bilateral lateral recesses. Normal bilateral intervertebral neural foramina. L3-4: Mild degree of diffuse posterior disc bulge. Facet joint hypertrophy. Mild degree of bilateral neural foraminal stenosis. L4-5: Facet joint osteoarthritis and hypertrophy. Mild bilateral neural foraminal stenosis. L5-S1: Posterior spondylosis. Minimal central deformity of the thecal sac. Aortic calcifications. CT/Spine Lumbar without Contrast IMPRESSION: Moderate degree of disc space narrowing with the fusion at the T12-L1 level with loss of height as described. Mild to moderate central canal stenosis. Electronically Signed: Royer Pineda MD at 12:44 EDT , Service support ,
--- NOTE | 2020-07-11 12:13 | PCM.PROGNOTE ---
Patient Problems: Active and Suspected Problems (Last Updated 07/11/20 @ 08:[address] Kyra Gruber MD) Intractable back pain (Acute) Subjective: Chief complaint: Follow-up after admission for intractable mid back pain. Patient seen and examined today. No acute events overnight. He mentioned that at rest, he has no pain. He started having pain upon movement, sharp pain, aggravated with movement and relieved with rest. No other complaints. His vital signs are stable. - Physical Exam Vitals/I&O's: Vital Signs Temp Pulse Resp BP Pulse Ox 97.7 F L 98 14 135/82 H 96 07/11/20 11:32 07/11/20 11:32 07/11/20 11:32 07/11/20 11:32 07/11/20 11:32 Oxygen Flow Rate (L/min) 2 Oxygen Delivery Method Nasal Cannula Weight: 163 lb 9.328 oz Body Mass Index (BMI) 27.2 Intake and Output for Last 24 Hours 07/09/20 07/10/20 07/11/20 23:59 23:59 23:59 Intake Total 1000 / 1500 600 / 600 Output Total 650 / 650 Balance 1000 / 1100 -50 / -50 General: Alert, Oriented x3, Cooperative, No apparent distress HEENT: Atraumatic, PERRLA, EOMI, Normocephalic Oral: Moist Mucosa, No Gingival or Mucosal Lesions/ Ulcerations Neck: Supple, No JVD, Negative Carotid Bruits, Trachea Midline, Thyroid Normal Size and Texture Lungs: Clear to auscultation, No rhonchi, No wheeze, No rales, Diminished Cardiovascular: Normal S1, Normal S2, PMI Normal, Irregular Rate Abdomen: Bowel Sounds Present, Soft, Non Tender, Non-Distended, No Hepato-splenomegaly Extremities: No clubbing, No cyanosis, No edema Skin: No rashes, No breakdown Lymphatic: No Cervical, Supraclavicular, or Inguinal Adenopathy Neurological: Cranial nerves II-XII grossly intact, Motor Exam 5/5 strength throughout Psych/Mental Status: Normal Affect, Appropriate Laboratory Results 07/10/20 14:35: WBC 7.4, RBC 4.02 L, Hgb 12.0 L, Hct 37.5 L, MCV 93.3, MCH 29.9, MCHC 32.0, RDW Std Deviation 46.8 H, RDW Coeff of Del 13.8, Plt Count 199, MPV 10.6, Immature Gran % (Auto) 0.300, Neut % (Auto) 71.7 H, Lymph % (Auto) 16.0 L, [place] % (Auto) 10.3 H, Eos % (Auto) 1.2, Baso % (Auto) 0.5, Absolute Neuts (auto) 5.3, Absolute Lymphs (auto) 1.18, Nucleated RBC % 0 07/10/20 14:35: Sodium 141, Potassium 4.4, Chloride 110 H, Carbon Dioxide 23.0, Anion Gap 8, BUN 18, Creatinine 1.26, Estim Creat Clear Calc 37.96, Est GFR (MDRD) Af Amer 70, Est GFR (MDRD) Non-Af 58 L, BUN/Creatinine Ratio 14.3, Glucose 108 H, Calcium 9.1, Total Bilirubin 0.30, AST 14 L, ALT 18, Alkaline Phosphatase 67, Troponin I < 0.015, Total Protein 7.2, Albumin 3.5, Globulin 3.7, Albumin/Globulin Ratio 0.9, Lipase 222 07/10/20 14:35: Lactic Acid 1.8 07/10/20 15:58: Urine Color Yellow, Urine Clarity Clear, Urine pH 6.5, Ur Specific Clifford 1.010, Urine Protein Negative, Urine Glucose (UA) Normal, Urine Ketones Negative, Urine Occult Blood 25 H, Urine Nitrite Negative, Urine Bilirubin Negative, Urine Urobilinogen Normal, Ur Leukocyte Esterase 25 H, Urine RBC 0-5 SEEN, Urine WBC 0-5 SEEN, Ur Squamous Epith Cells 0 SEEN, Urine Bacteria 0 SEEN, Urine Mucus 0 SEEN 07/10/20 18:30: PT 27.0 H, INR 2.6 07/11/20 06:02: WBC 7.7, RBC 3.63 L, Hgb 10.9 L, Hct 34.0 L, MCV 93.7, MCH 30.0, MCHC 32.1, RDW Std Deviation 48.1 H, RDW Coeff of Del 13.9, Plt Count 176, MPV 10.0, Immature Gran % (Auto) 0.100, Neut % (Auto) 77.0 H, Lymph % (Auto) 11.3 L, [place] % (Auto) 9.5, Eos % (Auto) 1.7, Baso % (Auto) 0.4, Absolute Neuts (auto) 5.9, Absolute Lymphs (auto) 0.87, Nucleated RBC % 0 07/11/20 06:02: Sodium 139, Potassium 4.4, Chloride 109 H, Carbon Dioxide 26.0, Anion Gap 4 L, BUN 15, Creatinine 1.01, Estim Creat Clear Calc 47.36, Est GFR (MDRD) Af Amer 91, Est GFR (MDRD) Non-Af 75, BUN/Creatinine Ratio 14.9, Glucose 93, Calcium 8.8, Total Bilirubin 0.40, AST 13 L, ALT 15 L, Alkaline Phosphatase 65, Total Protein 6.4, Albumin 3.1 L, Globulin 3.3, Albumin/Globulin Ratio 0.9 07/11/20 06:02: PT 27.8 H, INR 2.6 Clinical Impression(s) from Imaging Studies Chest/Abdomen/Pelvis CTA 07/10/20 14:20 IMPRESSION: No evidence of aortic dissection although there is evidence of a calcific plaques throughout. 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 Bilateral renal atrophy worse on the left side with multiple tiny bilateral intrarenal calculi. Small bilateral pleural effusions slightly worse on the left side with evidence of emphysematous changes. Electronically Signed: Royer Pineda MD at 15:05 EDT , Service support , Current Medications Acetaminophen (Acetaminophen 500 Mg Tablet) 1,000 mg PO Q8 [facility] Last Admin: 07/11/20 05:15 Dose: 1,000 mg Documented by: Al Hydroxide/Mg Hydroxide (Mag Hydrox/Al Hydrox/Simeth 30 Ml Udc) 30 ml PO Q6H PRN PRN PRN Reason: Gastric Burning Atorvastatin Calcium (Atorvastatin Calcium 20 Mg Tablet) 20 mg PO QHS [facility] Last Admin: 07/10/20 22:39 Dose: 20 mg Documented by: Cyclobenzaprine HCl (Cyclobenzaprine Hcl 5 Mg Tablet) 5 mg PO TID [facility] Last Admin: 07/11/20 05:16 Dose: 5 mg Documented by: Finasteride (Finasteride 5 Mg Tablet) 5 mg PO DAILY [facility] Last Admin: 07/11/20 08:32 Dose: 5 mg Documented by: Levothyroxine Sodium (Levothyroxine 25 Mcg Tablet) 25 mcg PO DAILY@0600 [facility] Last Admin: 07/11/20 05:16 Dose: 25 mcg Documented by: Lidocaine (Lidocaine 5% Patch) 1 patch TOPICAL DAILY [facility]; Protocol Mirabegron (Mirabegron 50 Mg Tab.Er.24h) 50 mg PO DAILY [facility] Last Admin: 07/11/20 08:31 Dose: 50 mg Documented by: Morphine Sulfate (Morphine 2 Mg/Ml Syringe) 2 mg IV Q3H PRN PRN PRN Reason: Pain Score 6-10 Last Admin: 07/11/20 09:45 Dose: 2 mg Documented by: [facility]ivitamins ([facility]ivit[facility],Therapeutic Tablet) [facility] Last Admin: 07/11/20 08:31 Dose: 1 tablet Documented by: Ondansetron HCl (Ondansetron 4 Mg/2 Ml Vial) 4 mg IV Q8H PRN PRN PRN Reason: NAUSEA/VOMITING Oxycodone HCl (Oxycodone 5 Mg Tablet) 5 mg PO Q6H PRN PRN PRN Reason: Pain Score 6-10 Last Admin: 07/10/20 23:45 Dose: 5 mg Documented by: Pantoprazole Sodium (Pantoprazole Sodium 20 Mg Tablet) 20 mg PO DAILY [facility] Last Admin: 07/11/20 08:31 Dose: 20 mg Documented by: Sodium Chloride (0.9% Saline Lock 10 Ml Syringe) 10 - 40 ml IV UD PRN PRN Reason: SALINE FLUSH Last Admin: 07/11/20 09:46 Dose: 10 ml Documented by: Tamsulosin HCl (Tamsulosin Hcl 0.4 Mg Capsule) 0.4 mg PO DAILY [facility] Last Admin: 07/11/20 08:31 Dose: 0.4 mg Documented by: Warfarin Sodium (Warfarin 4 Mg Tablet) 4 mg PO SuThFrSa@1700 [facility] Warfarin Sodium (Warfarin 6 Mg Tablet) 6 mg PO MoTuWe@1700 [facility] Medical Necessity - Tobacco Use Smoking Status: Former smoker Tobacco Use: Cigarettes Assessment/Plan All Active Problems (Last Updated 07/11/20 @ 08:[address] Kyra Gruber MD) Intractable back pain (Acute) This is an 85 years old male patient presented to the emergency room because of sudden onset mid back pain, not responding to treatment and he was admitted for evaluation and treatment. #1 intractable mid back pain: Mainly upon movement, intermittent. It is sharp pain, sudden onset, no reported history of trauma or mechanical fall. He had a CTA abdomen and pelvis that showed no dissection, bilateral kidney atrophy, small bilateral pleural effusion with emphysema, no acute findings. Routine blood work was remarkable for chronic anemia with stable blood, otherwise normal. LFT and lipase were normal. Urinalysis unremarkable. Patient is on IV morphine, OxyIR as needed as well as cyclobenzaprine as needed. He is still symptomatic mainly up on movement and ambulation. Plan: Start lidocaine patch topically, CT scan thoracic and lumbar spine. This will be done by reconstructing the images from the CT scan abdomen and pelvis. #2 CAD status post CABG and stents: Stable, continue statins and Coumadin. He is not on beta-blockers or FELISHA inhibitors. #3 hypertension: Blood pressure stable, currently is not on any antihypertensive medications. #4 hypothyroidism: Continue levothyroxine. #5 chronic diastolic CHF: Clinically stable, compensated. He is only on statins. He is not on diuretics or beta blockers as well as FELISHA inhibitor's. #6 chronic atrial fibrillation/sick sinus syndrome: Status post pacemaker. Heart rate stable, continue Coumadin for anticoagulation, INR therapeutic. #7 benign prostatic hypertrophy: Stable, continue Flomax. #8 chronic anemia: Hemoglobin and hematocrit are stable. #9 DVT prophylaxis: On Coumadin, INR therapeutic. This note was generated with [employer] dictation software. It may contain incorrect words, spelling, and punctuation that were not noted in checking the note before signing. OBSV E&M: 20068 Subsequent observation care L2
--- NOTE | 2020-07-11 12:20 | NURSING ---
STUDENT CHARTING REVIEWED BY THIS RN, AGREE WITH INFORMATION CHARTED.
--- NOTE | 2020-07-11 13:44 | NURSING ---
wound photo: right back
--- NOTE | 2020-07-11 13:48 | CHAPLAIN ---
Type of Pastoral Visit _x__ Initial Visit ___ Follow-up Visit ___ On-call Visit ___ General Patient Visit ___ Spiritual Assessment ___ Family Conference ___ Bereavement ___ Rapid Response ___ Code Blue ___ Other (describe below) Pastoral Care Referral From _x__ Patient ___ Family ___ Nurse ___ Physician ___ Flame Brazing Machine Operator ___ Sawdust Machine Operator ___ Other (describe below) Sacrament/Intervention ___ Active listening ___ Anointing ___ Yazidism ___ Bereavement ___ Communion ___ Petra exploration ___ ___ Life review ___ Prayer ___ Reconciliation ___ Sacrament of Sick _x__ Supportive presence ___ Wedding ___ Other (describe below) Pastoral Comments
[2020-07-11] MEDS: Lidocaine 5% Patch 1 PATCH TOPICAL (14:01)
--- NOTE | 2020-07-11 16:19 | CASEMGMT ---
This RN CM to room with KIM form, explanation done-pt voices understanding, and signs KIM form. Original to chart and copy to pt. Pt has MCR IP vs OBS booklet at bedside. Pt also provided with a list of SNF providers including quality and resource use data and consisten with the pt's preferred geographic region, medical needs, and insurance network. [place] MARIA LUISA CM
[2020-07-11] MEDS: Atorvastatin Calcium 20 MG Tablet PO (22:00)
[2020-07-12 03:56] VITALS: BP 146/73; PULSE 86; RESP 16; TEMP 36.2; O2SAT 96
[2020-07-12] MEDS: Levothyroxine 25 MCG TABLET PO (05:43)
[2020-07-12] MEDS: Acetaminophen 500 MG Tablet 1000 MG PO ×2 (05:43→15:23)
[2020-07-12 05:45] LABS: International Normalized Ratio 2.1; Prothrombin Time (Protime)PT. 23.4 SECONDS (11.7-14.9)
[2020-07-12 08:34] VITALS: BP 120/57; PULSE 77; RESP 17; TEMP 36.4; O2SAT 99
[2020-07-12 08:39] VITALS: O2SAT 95
[2020-07-12] MEDS: Multivitamins,Therapeutic Tablet 1 TABLET PO (08:47)
[2020-07-12] MEDS: Lidocaine 5% Patch 1 PATCH TOPICAL (08:47)
[2020-07-12] MEDS: Tamsulosin HCl 0.4 MG Capsule PO (08:47)
[2020-07-12] MEDS: Mirabegron 50 MG TAB.ER.24H PO (08:48)
[2020-07-12] MEDS: Finasteride 5 MG Tablet PO (08:48)
[2020-07-12] MEDS: Pantoprazole Sodium 20 MG Tablet PO (08:48)
--- NOTE | 2020-07-12 13:22 | CASEMGMT ---
Social Work SW met with pt to discuss discharge plan. Pt lives alone but states his sister in law lives 200 feet away and can check on him. Pt does not feel he needs fpc but that he would be ok at home if someone (his ROSALIA) checked in. SW spoke with pt about home health and pt is agreeable to home health PT/OT. SW provided list of home health agencies including quality and resource use data and consistent with the patients preferred geographic region, medical needs and insurance network. Pt preferred provider is [facility]. Referral made to [facility]. Will await return call for determination of acceptance. ILANA Novak
--- NOTE | 2020-07-12 14:48 | DCINST_ITS ---
- Discharge Diagnoses Current Active Problems: Current Active and Chronic Problems (Last Updated 07/11/20 @ 08:[address] 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 Weight Bearing Status: Weight bearing as tolerated Call your doctor if you observe: Fever of 101 or Higher, Shortness of breath, Dizziness, Fainting spells, Chest pain, Increased palpitations (irregular heartbeat), Uncontrolled pain Allergies/Adverse Reactions: Allergies No Known Allergies Allergy (Verified 07/10/20 14:06) Medications to take at Discharge Omeprazole [Prilosec] 20 mg PO DAILY 02/19/15 Rosuvastatin Calcium [Crestor] 40 mg PO DAILY 02/19/15 Tamsulosin HCl [Flomax] 0.4 mg PO DAILY 07/29/17 acetaminophen 650 mg tablet,extended release 1,300 mg PO TID tab 07/15/18 mirabegron 50 mg tablet,extended release 24 hr 50 mg PO DAILY 07/15/18 nitroglycerin 0.4 mg sublingual tablet 0.4 mg SUBLINGUAL Q5M PRN #25 tab 04/23/20 Finasteride [Proscar] 5 mg PO DAILY 07/10/20 Levothyroxine Sodium [Synthroid] 25 mcg PO DAILY 07/10/20 Multivitamins,Therapeutic [Multivitamin] 1 tablet PO DAILY 07/10/20 Warfarin Sodium 4 mg PO SUTHFRSA 07/10/20 Warfarin Sodium 6 mg PO MOTUWE 07/10/20 Lidocaine [Lidoderm Patch] 1 patch TOPICAL DAILY #5 patch 07/12/20 Oxycodone [Oxyir] 5 mg PO Q8H PRN PRN 5 Days #14 tablet 07/12/20 The following prescriptions were given: Lidocaine [Lidoderm Patch] 1 patch TOPICAL DAILY #5 patch Transmission Status: Pending to [facility] Oxycodone [Oxyir] 5 mg PO Q8H PRN PRN 5 Days #14 tablet PRN Reason: Pain Score 6-10 Transmission Status: Sent to [facility] Primary Care Physician: Jono Harrington Chi, MD [Primary Care Provider] - Please follow up with your Primary Care Physician in: 1 week. Test Results: Test results from this visit will be discussed in further detail at your follow- up appointment, if applicable. Please Follow Up With: Ankit Beckwith MD When: 1-2 weeks.
--- NOTE | 2020-07-12 14:50 | DS.PCM_ITS ---
Discharge Date and Diagnosis - Problem List Patient Problems: Active and Suspected Problems (Last Updated 07/11/20 @ 08:[address] Kyra Gruber MD) Intractable back pain (Acute) Date of Admission: 07/10/20 Date of Discharge: 07/12/20 - Primary Discharge Diagnosis Acute Problems: Active Problems (Last Updated 07/11/20 @ 08:[address] 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 - Secondary Discharge Diagnosis Chronic Problems: Chronic Problems (Last Updated 07/11/20 @ 08:[address] Kyra Gruber MD) Sick sinus syndrome (Chronic) Kidney disease, chronic, stage III (GFR 30-59 ml/min) (Chronic) Hypothyroidism (Chronic) Chronic diastolic (congestive) heart failure (Chronic) Abnormal result of cardiovascular function study (Chronic) Encounter for long-term current use of high risk medication (Chronic) BPH (benign prostatic hyperplasia) (Chronic) Presence of stent in coronary artery (Chronic ~02/21/03) 02/20/98 PTCA to end stent restenosis of mid cx; 07/18/97 PTCA/stent of obtuse marginal & distal CX; 09/13/97 Rotational atherectomy of CX; 09/25/97, 11/01/97 PTSC/stent of CX; PTCA with stenting of LAD 02/21/03; Pure hypercholesterolemia (Chronic) Essential hypertension (Chronic) shelter (current) use of anticoagulants (Chronic) Atherosclerosis of coronary artery of [place] heart without angina pectoris (Chronic) Chronic atrial fibrillation (Chronic) Atherosclerosis of coronary artery bypass graft without angina pectoris (Chronic) 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) CABG November 1997, ROMERO to LAD, SVG from aorta to ramus intermedius artery Cardiac pacemaker (Chronic) Pacemaker implant June 2005; Pacemaker generator change 11/28/12; Hospital Course and Treatment Imaging Results: Clinical Impression(s) from Imaging Studies Chest/Abdomen/Pelvis CTA 07/10/20 14:20 IMPRESSION: No evidence of aortic dissection although there is evidence of a calcific plaques throughout. 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 Bilateral renal atrophy worse on the left side with multiple tiny bilateral intrarenal calculi. Small bilateral pleural effusions slightly worse on the left side with evidence of emphysematous changes. 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 Small bilateral pleural effusions. Electronically Signed: Royer Pineda MD at 12:30 EDT , Service support , Lumbar Spine CT 07/11/20 11:02 IMPRESSION: Moderate degree of disc space narrowing with the fusion at the T12-L1 level with loss of height as described. Mild to moderate central canal stenosis. Electronically Signed: Royer Pineda MD at 12:44 EDT , Service support , Consultations 07/10/20 23:30 Consult: Onc/Wound/paunch trimmer Routine Comment: Operations: None Procedures: None Summary of Care Provided: The patient is a 85 year old M admitted because of sudden onset intractable mid back pain without reported history of trauma or mechanical fall. In the emergency department, patient had CT scan abdomen and pelvis with contrast and there was no evidence of aortic dissection, no other acute findings identified. His routine blood work was unremarkable. His troponin was negative. EKG showed chronic A. fib, no acute ischemic changes. He was treated conservatively with IV morphine, OxyIR as needed as well as Flexeril as needed. Also, he was started on lidocaine patch topically. CT scan of the thoracic and lumbar spine done by reconstructing the images from the CT scan abdomen and pelvis and that showed kyphotic deformity at T12-L1 level with loss of height of T12 and L1 vertebra with mild to moderate central canal stenosis. Dr. Beckwith was consulted and he recommended that there is no need for intervention at this point and patient can be treated medically as patient has been on Coumadin for chronic at rial fibrillation. With above-mentioned treatment, patient symptoms improved. He was seen by PT OT, ambulate that he did well. Patient discharged home with home health in a stable medical condition, discharged on lidocaine patch 1 patch topical daily, discharged on OxyIR every 8 hours as needed for pain, started back on his previous home medications without any changes including Coumadin, plan to follow-up with Dr. Beckwith in 1 to 2 weeks, recommended to follow-up with PCP in 1 week. Patient Problems: Active and Suspected Problems (Last Updated 07/11/20 @ 08:[address] Kyra Gruber MD) Intractable back pain (Acute) - Physical Exam Vitals/I&O's: Vital Signs Temp Pulse Resp BP Pulse Ox 97.6 F L 77 17 120/57 L 95 07/12/20 08:34 07/12/20 08:34 07/12/20 08:34 07/12/20 08:34 07/12/20 08:39 Oxygen Flow Rate (L/min) 2 Oxygen Delivery Method Room Air Weight: 163 lb 9.328 oz Body Mass Index (BMI) 27.2 Intake and Output for Last 24 Hours 07/10/20 07/11/20 07/12/20 23:59 23:59 23:59 Intake Total 1000 / 1500 840 / 1140 860 / 860 Output Total 1100 / 1500 1150 / 1150 Balance 1000 / 1100 -260 / -360 -290 / -290 General: Alert, Oriented x3, Cooperative, No apparent distress HEENT: Atraumatic, PERRLA, EOMI, Normocephalic Oral: Moist Mucosa, No Gingival or Mucosal Lesions/ Ulcerations Neck: Supple, No JVD, Negative Carotid Bruits, Trachea Midline, Thyroid Normal Size and Texture Lungs: Clear to auscultation, No rhonchi, No wheeze, No rales, Diminished Cardiovascular: Normal S1, Normal S2, PMI Normal, Irregular Rate Abdomen: Bowel Sounds Present, Soft, Non Tender, Non-Distended, No Hepato- splenomegaly Extremities: No clubbing, No cyanosis, No edema Skin: No rashes, No breakdown Lymphatic: No Cervical, Supraclavicular, or Inguinal Adenopathy Neurological: Cranial nerves II-XII grossly intact, Neuro grossly intact Psych/Mental Status: Normal Affect, Appropriate Laboratory Results 07/12/20 05:30: PT 23.4 H, INR 2.1 Current Medications Acetaminophen (Acetaminophen 500 Mg Tablet) 1,000 mg PO Q8 [facility] Last Admin: 07/12/20 05:43 Dose: 1,000 mg Documented by: Al Hydroxide/Mg Hydroxide (Mag Hydrox/Al Hydrox/Simeth 30 Ml Udc) 30 ml PO Q6H PRN PRN PRN Reason: Gastric Burning Atorvastatin Calcium (Atorvastatin Calcium 20 Mg Tablet) 20 mg PO QHS [facility] Last Admin: 07/11/20 22:00 Dose: 20 mg Documented by: Cyclobenzaprine HCl (Cyclobenzaprine Hcl 10 Mg Tablet) 10 mg PO TID PRN PRN PRN Reason: muscle spasm, back pain Finasteride (Finasteride 5 Mg Tablet) 5 mg PO DAILY [facility] Last Admin: 07/12/20 08:48 Dose: 5 mg Documented by: Sodium Chloride () 500 mls @ 999 mls/hr IV Q30M PRN PRN Reason: hypotensive Levothyroxine Sodium (Levothyroxine 25 Mcg Tablet) 25 mcg PO DAILY@0600 [facility] Last Admin: 07/12/20 05:43 Dose: 25 mcg Documented by: Lidocaine (Lidocaine 5% Patch) 1 patch TOPICAL DAILY [facility]; Protocol Last Admin: 07/12/20 08:47 Dose: 1 patch Documented by: Mirabegron (Mirabegron 50 Mg Tab.Er.24h) 50 mg PO DAILY [facility] Last Admin: 07/12/20 08:48 Dose: 50 mg Documented by: Morphine Sulfate (Morphine 2 Mg/Ml Syringe) 2 mg IV Q3H PRN PRN PRN Reason: Pain Score 6-10 Last Admin: 07/11/20 09:45 Dose: 2 mg Documented by: [facility]ivitamins ([facility]ivit[facility],Therapeutic Tablet) [facility] Admin: 07/12/20 08:47 Dose: 1 tablet Documented by: Ondansetron HCl (Ondansetron 4 Mg/2 Ml Vial) 4 mg IV Q8H PRN PRN PRN Reason: NAUSEA/VOMITING Oxycodone HCl (Oxycodone 5 Mg Tablet) 5 mg PO Q6H PRN PRN PRN Reason: Pain Score 6-10 Last Admin: 07/10/20 23:45 Dose: 5 mg Documented by: Pantoprazole Sodium (Pantoprazole Sodium 20 Mg Tablet) 20 mg PO DAILY [facility] Last Admin: 07/12/20 08:48 Dose: 20 mg Documented by: Sodium Chloride (0.9% Saline Lock 10 Ml Syringe) 10 - 40 ml IV UD PRN PRN Reason: SALINE FLUSH Last Admin: 07/11/20 09:46 Dose: 10 ml Documented by: Tamsulosin HCl (Tamsulosin Hcl 0.4 Mg Capsule) 0.4 mg PO DAILY [facility] Last Admin: 07/12/20 08:47 Dose: 0.4 mg Documented by: Warfarin Sodium (Warfarin 4 Mg Tablet) 4 mg PO SuThFrSa@1700 [facility] Last Admin: 07/11/20 17:36 Dose: 4 mg Documented by: Warfarin Sodium (Warfarin 6 Mg Tablet) 6 mg PO MoTuWe@1700 [facility] Discharge Activity: Return to Normal Activity, May not drive while taking narcotic pain medications. Weight Bearing Status: Weight bearing as tolerated Call your doctor if you observe: Fever of 101 or Higher, Shortness of breath, Dizziness, Fainting spells, Chest pain, Increased palpitations (irregular heartbeat), Uncontrolled pain Home Medications: Medications to take at Discharge Omeprazole [Prilosec] 20 mg PO DAILY 02/19/15 Rosuvastatin Calcium [Crestor] 40 mg PO DAILY 02/19/15 Tamsulosin HCl [Flomax] 0.4 mg PO DAILY 07/29/17 acetaminophen 650 mg tablet,extended release 1,300 mg PO TID tab 07/15/18 mirabegron 50 mg tablet,extended release 24 hr 50 mg PO DAILY 07/15/18 nitroglycerin 0.4 mg sublingual tablet 0.4 mg SUBLINGUAL Q5M PRN #25 tab 04/23/20 Finasteride [Proscar] 5 mg PO DAILY 07/10/20 Levothyroxine Sodium [Synthroid] 25 mcg PO DAILY 07/10/20 Multivitamins,Therapeutic [Multivitamin] 1 tablet PO DAILY 07/10/20 Warfarin Sodium 4 mg PO SUTHFRSA 07/10/20 Warfarin Sodium 6 mg PO MOTUWE 07/10/20 Lidocaine [Lidoderm Patch] 1 patch TOPICAL DAILY #5 patch 07/12/20 Oxycodone [Oxyir] 5 mg PO Q8H PRN PRN 5 Days #14 tablet 07/12/20 Following Prescriptions Were Given to Patient: Lidocaine [Lidoderm Patch] 1 patch TOPICAL DAILY #5 patch Transmission Status: Received by [facility] Oxycodone [Oxyir] 5 mg PO Q8H PRN PRN 5 Days #14 tablet PRN Reason: Pain Score 6-10 Transmission Status: Received by [facility] Primary Care Physician: Jono Harrington Chi, MD [Primary Care Provider] - Please follow up with your Primary Care Physician in: 1 week. Please Follow Up With: Ankit Beckwith MD When: 1-2 weeks. Disposition: Home with Home Health Minutes spent on discharge:: 26 Patient Condition:: Stable Medical Necessity - Tobacco Use Smoking Status: Former smoker Tobacco Use: Cigarettes Meaningful Use Info Meaningful Use Diagnoses (Choose all that apply): None applicable OBSV E&M: 19210 Observation care discharge
--- NOTE | 2020-07-12 15:00 | CASEMGMT ---
SUNG called [facility] back and SUNG was told they never got a referral on a [facility] [place]. SUNG re-faxed the information. SUNG then called Steve, the liaison from [facility] . He said they would be able to take patient and see him tomorrow. He will contact his office. He said he will call SUNG if there are any problems. SUNG will wait for a call from Steve for a little bit and if he does not call SUNG will notify patient that [facility] can take him and they will call him and likely be out tomorrow. Saranya BOB WAX BALL KNOCK OUT WORKER
[2020-07-12 15:13] VITALS: BP 121/55; PULSE 70; RESP 15; TEMP 36.7; O2SAT 96
--- NOTE | 2020-07-12 15:13 | NURSING ---
Discharge teaching completed with sister, Romelia over the phone. Questions answered. Romelia voiced understanding of same. Patient discharge teaching completed. Questions answered. Patient voiced understanding of same.
--- NOTE | 2020-07-12 15:32 | CASEMGMT ---
SUNG did not hear back from Steve with [facility]. (per conversation with him earlier he said if he does not call that means they can take patient) SUNG spoke with patient, introduced self and role at [facility]. SW let him know [facility] can take him. They said they will likely be out tomorrow, but they will call him before coming out. He thanked SUNG. Plan: d/c home with [facility] PT/OT. Saranya BOB VETERINARY ASSISTANT
--- NOTE | 2020-07-12 16:00 | PHA.DC.MC ---
Pharmacy Service has performed discharge medication reconciliation and counseling for this patient. 1. LIDOCAINE 5% PATCH APPLY 1 PATCH TD DAILY 2. OXYCODONE 5MG PO Q8H PRN PAIN 6-10 The patient's discharge medication list was reviewed for discrepancies and discrepancies were resolved. Home Medications Omeprazole [Prilosec] 20 mg PO DAILY 02/19/15 Rosuvastatin Calcium [Crestor] 40 mg PO DAILY 02/19/15 Tamsulosin HCl [Flomax] 0.4 mg PO DAILY 07/29/17 acetaminophen 650 mg tablet,extended release 1,300 mg PO TID tab 07/15/18 mirabegron 50 mg tablet,extended release 24 hr 50 mg PO DAILY 07/15/18 nitroglycerin 0.4 mg sublingual tablet 0.4 mg SUBLINGUAL Q5M PRN #25 tab 04/23/20 Finasteride [Proscar] 5 mg PO DAILY 07/10/20 Levothyroxine Sodium [Synthroid] 25 mcg PO DAILY 07/10/20 Multivitamins,Therapeutic [Multivitamin] 1 tablet PO DAILY 07/10/20 Warfarin Sodium 4 mg PO SUTHFRSA 07/10/20 Warfarin Sodium 6 mg PO MOTUWE 07/10/20 Lidocaine [Lidoderm Patch] 1 patch TOPICAL DAILY #5 patch 07/12/20 Oxycodone [Oxyir] 5 mg PO Q8H PRN PRN 5 Days #14 tablet 07/12/20 The patient was counseled on the following discharge medications and changes in medications for homegoing were reviewed. The Reason for Use, instructions for use, and potential side effects were reviewed for all new medications. The patient's questions regarding all of their medications were answered. The patient was able to verbally demonstrate an understanding of their discharge medications.
== END 2020-07-12 14:49 | disposition home or self-care (01) ==
LOC: ED 18:09 → PCU 18:34
PROVIDERS: Admitting Provider Internal Medicine; Emergency Provider Emergency Medicine; PCP Family Medicine Geriatric Medicine; Visit Provider Hospitalist
DX: M48.061 Spinal stenosis, lumbar region without neurogenic claudication (principal); M40.205 Unspecified kyphosis, thoracolumbar region; M54.6 Pain in thoracic spine; R29.890 Loss of height; E03.9 Hypothyroidism, unspecified; N18.30 Chronic kidney disease, stage 3 unspecified; I13.0 Hypertensive heart and chronic kidney disease with heart failure and stage 1 through stage 4 chronic kidney disease, or unspecified chronic kidney disease; N40.0 Benign prostatic hyperplasia without lower urinary tract symptoms; I25.2 Old myocardial infarction; I25.10 Atherosclerotic heart disease of native coronary artery without angina pectoris; I50.32 Chronic diastolic (congestive) heart failure; E78.5 Hyperlipidemia, unspecified; I48.20 Chronic atrial fibrillation, unspecified; Z87.891 Personal history of nicotine dependence; Z79.899 Other long term (current) drug therapy; Z79.01 Long term (current) use of anticoagulants; Z95.810 Presence of automatic (implantable) cardiac defibrillator
CPT/HCPCS: 36415; 71275; 72128; 72131; 74174; 80053; 81001; 83605; 83690; 84484; 85025; 85610; 93005; 96361; 96374; 96375; 96376; 97162; 97166; 97530; 99218; 99285; J7030; Q9967; A4216; G0378; J2405

== ENCOUNTER → 2020-08-27 14:14 | Outpatient (CLI) | payer MEDICARE, SELFPAY ==
[2020-07-10 19:17] VITALS: BMI 27.2
--- NOTE | 2020-08-27 14:18 | RAD_ITS ---
STUDY: X-RAY - LEFT TIBIA AND FIBULA REASON FOR EXAM: Male, 85 years old. PAIN IN L LEG TECHNIQUE: 2 view(s) of the tibia and fibula were obtained. COMPARISON: None. FINDINGS: Normal visualized tibia. Normal visualized fibula. The soft tissue structures are unremarkable. RAD/Tibia & Fibula 2 Views IMPRESSION: Normal x-ray examination of the tibia and fibula. Electronically Signed: Jose Jay MD at 15:20 EDT Tel , Service support ,
--- NOTE | 2020-08-27 14:18 | RAD_ITS ---
STUDY: X-RAY - LUMBAR SPINE REASON FOR EXAM: Male, 85 years old. LOW BACK PAIN TECHNIQUE: 3 view(s) of the lumbar spine were obtained. COMPARISON: 3 FINDINGS: Normal lumbar lordosis. Mild dextro scoliosis centered at L3. There is a normal alignment of the vertebrae. No change in the chronic moderate wedge compression fractures of T12 and L1. Normal disc space heights. The soft tissue structures are unremarkable. RAD/Lumbar Spine 2 or 3 Views IMPRESSION: No acute fracture or subluxation. Electronically Signed: Jose Jay MD at 15:24 EDT Tel , Service support ,
== END ==
PROVIDERS: PCP Family Medicine Geriatric Medicine; Referring Provider Family Medicine Geriatric Medicine; Visit Provider Family Medicine Geriatric Medicine
DX: M54.5 Low back pain (principal); M79.605 Pain in left leg
CPT/HCPCS: 72100; 73590

== ENCOUNTER 2020-09-18 09:15 | Outpatient (RCR) | payer MEDICARE, SELFPAY ==
[2020-07-10 19:17] VITALS: BMI 27.2
[2020-09-04 08:43] VITALS: BP 149/79; PULSE 65; RESP 16; TEMP 36.5; BMI 26.1
--- NOTE | 2020-09-04 09:21 | PCM.WC.HP ---
History of Present Illness Date of Service: 09/04/20 Chief Complaint: follow up L medial lower leg History of Wound: Last was hitching the trailer to back of his truck and and the odilia gave out and the trailer fell on his L medial lower leg . He pushed his leg down into the mud so he did not break it. A large ecchymotic area and open area that is covered with scab at this time has developed Progress of Wound: Will not debride today but cover the scabbed area with aquacell xtra and use compression . 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 Non-healing non-surgical wound Old myocardial infarction Partial bowel obstruction Presence of combination internal cardiac defibrillator (ICD) and pacemaker Presence of stent in coronary artery (~02/21/03) Pure hypercholesterolemia Thyroid dysfunction Traumatic ecchymosis of left lower leg Home Medications omeprazole 20 mg PO DAILY 02/19/15 [History Last Taken 07/09/20] rosuvastatin 40 mg PO DAILY 02/19/15 [History Last Taken 07/09/20] tamsulosin 0.4 mg PO DAILY 07/29/17 [History Last Taken 07/09/20] mirabegron 50 mg tablet,extended release 24 hr 50 mg PO DAILY 07/15/18 [History Last Taken 07/10/20] nitroglycerin 0.4 mg sublingual tablet 0.4 mg SUBLINGUAL Q5M PRN #25 tab 04/23/20 [Rx Last Taken Unknown] finasteride 5 mg PO DAILY 07/10/20 [History Last Taken 07/10/20] levothyroxine 25 mcg PO DAILY 07/10/20 [History Last Taken 07/09/20] multivitamin 1 tablet PO DAILY 07/10/20 [History Last Taken 07/10/20] warfarin 4 mg PO SUTHFRSA 07/10/20 [History Last Taken 07/06/20] warfarin 6 mg PO MOTUWE 07/10/20 [History Last Taken 07/09/20] baclofen 10 mg PO DAILY 09/04/20 [History Last Taken Unknown] cephalexin [Keflex] 500 mg PO BID 09/04/20 [History Last Taken Unknown] doxycycline hyclate 100 mg PO BID 09/04/20 [History Last Taken Unknown] metoprolol succinate 50 mg PO DAILY 09/04/20 [History Last Taken Unknown] pantoprazole 40 mg PO DAILY 09/04/20 [History Last Taken Unknown] prednisone 10 mg PO 09/04/20 [History Last Taken Unknown] vitamin B complex 2 tab PO DAILY 09/04/20 [History Last Taken Unknown] Allergy/AdvReac Type Severity Reaction Status Date / Time No Known Allergies Allergy Verified 09/04/20 09:03 Family History (Reviewed 09/04/20 @ 09:22 by Kalpana Ron [employer], [employer]) Father Lung cancer CVA (cerebral vascular accident) Brother Sudden cardiac Surgical History Eyelid retraction unspecified eye, unspecified lid H/O hernia repair H/O myringoplasty History of two vessel coronary artery bypass graft (~1997) Hx of CABG Hx of cholecystectomy Presence of coronary angioplasty implant and graft (~02/21/03) ureteral stent Social History Smoking Status: Never smoker how long ago did patient quit smokin years alcohol intake: never substance use type: does not use caffeine: No ROS Constitutional Constitutional: Reports systems reviewed and no addt'l complaints, except as documented Eyes Eyes: Reports systems reviewed and no addt'l complaints, except as documented ENT HEENT: Reports systems reviewed and no addt'l complaints, except as documented Cardiovascular Cardiovascular: Reports systems reviewed and no addt'l complaints, except as documented Respiratory/Chest Respiratory/Chest: Reports systems reviewed and no addt'l complaints, except as documented Gastrointestinal Gastrointestinal: Reports systems reviewed and no addt'l complaints, except as documented Genitourinary Genitourinary: Reports systems reviewed and no addt'l complaints, except as documented Musculoskeletal Musculoskeletal: Reports systems reviewed and no addt'l complaints, except as documented Integumentary Integumentary: Reports systems reviewed and no addt'l complaints, except as documented, erythema, skin swelling, unusual bruising and wounds Neurologic Neurologic: Reports systems reviewed and no addt'l complaints, except as documented Psychiatric Psychiatric: Reports systems reviewed and no addt'l complaints, except as documented Endocrine Endocrinology: Reports systems reviewed and no addt'l complaints, except as documented Hematologic/Lymphatic Hematologic/Lymphatic: Reports systems reviewed and no addt'l complaints, except as documented Allergic/Immunologic Allergic/Immunologic: Reports systems reviewed and no addt'l complaints, except as documented Vital Signs Vital Signs Vital Signs: 09/04/20 08:43 Temperature 97.7 F L Temperature Source Temporal Pulse Rate 65 Respiratory Rate 16 Blood Pressure 149/79 H Blood Pressure Mean 102 Blood Pressure Source Monitor Blood Pressure Position Sitting Blood Pressure Location Right Arm Oxygen Delivery Method Room Air Physical Exam Const oriented x3 General Appearance: cooperative Exam Limitations: no limitations HEENT normocephalic Head and Scalp: normal to inspection Face and Sinus: normal facial exam Nose: external nose normal General Ear: hearing grossly impaired External Ear: external ears normal Mouth: oral and palatal mucosa normal Eyes PERRL General Eye: normal appearance of both eyes Neck full ROM General: normal visual inspection Resp normal respiratory effort Effort and Inspection: able to speak in complete sentences Auscultation: clear to auscultation bilaterally Cardio regular rate and regular rhythm Palpation: normal PMI Rate: regular rate Rhythm: regular rhythm GI Auscultation: normoactive bowel sounds Palpation: soft and no hepatosplenomegaly external exam normal Back/Spine Cervical Spine: cervical ROM normal Thoracic Spine / Upper Back: normal to inspection Lumbar Spine / Lower Back: normal to inspection Extremity normal to inspection General Extremity: normal exam except as noted Skin no rashes or lesions noted Neuro oriented x3 Psych Appearance: grossly normal Speech: normal speech Thought Content: normal thought content Judgement: judgement good Debridement Note Debridement Note Post-Debridement Measurements and Additional Note: Post-Debridement Measurements/Treatment - Nurse 1 - General Ulcer Assessment Start: 09/04/20 08:43 Freq: Status: Active Protocol: DAVEY Activity Type Activity Date Activity User E-Sign Co-Sign Detail Recorded Client Recorded Date Recorded By Document 09/04/20 08:43 [facility] [id number] 09/04/20 08:54 [facility] 09/04/20 08:43 - Today's Visit Information Type of service Initial Visit Arrival Mode Ambulatory Transfer Assistance None Patient Identification Verified (Name & Yes ) Patient Requires Transmission-Based No Precautions Height and Weight Height 5 ft 5 in Weight 157 lb Weight in Pounds 157.0 lbs Body Mass Index (BMI) 26.1 BMI Classification Overweight BSA - Anna 1.78 Vital Signs Temperature (97.8 F-99.1 F) 97.7 F L Temperature Source Temporal Pulse Rate (60-100) 65 Pulse Location Monitor Respiratory Rate (12-18) 16 Respiratory rate source Observation Oxygen Delivery Method Room Air Blood Pressure (90/60-120/80) 149/79 H Blood Pressure Mean 102 Source Monitor Position Sitting Blood Pressure Location Right Arm History Since Last Visit- (Skip if this is Patient's initial visit) Left Footwear Regular Shoe Right Footwear Regular Shoe Pain Scale: 0-10 Numeric Is Patient Pain Free? Yes Lower Extremity Assessment/ Foot Assessment/ Toe Nail Assessment Right -Posterior Tibial Doppler Monophasic -Dorsalis Pedis Doppler Monophasic -Extremity Color Pale -Hair Growth on Legs No -Hair Growth on Toes No -Temperature of Extremity Warm -Capillary Refill Less than 3 Seconds -Other Deformity No -Prior Foot Ulcer No -Charcot Joint No -Prior Amputation No -Thick No -Discolored No -Deformed No -Improper Length & Hygeine No Left -Posterior Tibial Doppler Monophasic -Dorsalis Pedis Doppler Monophasic -Extremity Color Pale -Hair Growth on Legs No -Hair Growth on Toes No -Temperature of Extremity Cool -Other Deformity No -Prior Foot Ulcer No -Charcot Joint No -Prior Amputation No -Thick No -Discolored No -Deformed No -Improper Length & Hygeine No Neuropathy Assessment Feet - Top Side and Bottom <Entered> (a) Communication Assessment Preferred language Czech Able to Read Yes Able to Write Yes Communication Tools None Right Hearing Abillity Hard of Hearing Left Hearing Abillity Hard of Hearing Visual Assistive Devices Glasses Teaching Assessment Preferences Verbal,Written, Audio/Visual, Demonstration Barriers to Learning None Readiness To Learn Excellent Willingness to Engage in Self Management High Activies Readiness to Engage in Self Management High Activities Anxiety Level Calm Cooperation Cooperative Perception Coherent Interest in Health Problem Asks Questions Education Importance Acknowledges Need Does Patient Smoke tobacco or other No substances Smoking Status Never smoker Is Patient Diabetic No Functional Assessment Recent Decline in Ability to Perform Denies Any Declines Culture/Zoroastrianism/Snailer Cultural/Zoroastrianism Needs that may affect No Treatment Plan Teaching: Wound Center *Welcome to the Wound Center -Person Taught Patient -Teaching Method Discussion -Response to teaching Verbalize understanding Welcome to the Wound Care Center Czech (a) 1 - + WC - Nurse 1 - General Ulcer Measurement Start: 09/04/20 08:43 Freq: Status: Active Protocol: Activity Type Activity Date Activity User E-Sign Co-Sign Detail Recorded Client Recorded Date Recorded By Document 09/04/20 08:43 BM [id number] 09/04/20 08:54 BMF 09/04/20 08:43 Wound Center Nurse 1 #1- L MEDIAL LE (TRAUMA) -Combined with other wound No -Current Size (cm) - Length 2 -Current Size (cm) - Width 2.6 -Current Size (cm) - Depth 0.1 -Total Square Cm 5.2 -Date of Last Picture (Recall this 09/04/20 field) -Photo Taken Yes -Epithelialization None Present -Tunneling No -Undermining/Tunneling No -Circular Undermining No -Exudate Amt None Present -Wound Margin Distinct, Outline Attached -Granulation Amt None Present (0 %) -Slough/Fibrin Yes -Necrosis Amt Large (67-100%) -Necrotic Tissue Type Eschar -Texture (Elham-wound Skin Appearance) Assessed -Moisture (Elham-wound Skin Appearance) Assessed -Color (Elham-wound Skin Appearance) Ecchymosis -Temperature (Elham-wound Skin No Abnormality Appearance) (Pt Warm) -Tenderness on Palpation (Elham-wound No Skin Appearance) -Ulcer Cleansing Rinsed/ Irrigated with Saline -Foul Odor after Cleansing No -Anesthetic Used 4% Lidocaine Solution Lower Limb Edema Present Yes Right Calf (cm) 35.6 Right Ankle (cm) 21.9 Left Calf (cm) 36.4 Left Ankle (cm) 23.3 WC - Nurse 2 - General Ulcer CM Notes Start: 09/04/20 08:43 Freq: Status: Active Protocol: Activity Type Activity Date Activity User E-Sign Co-Sign Detail Recorded Client Recorded Date Recorded By Document 09/04/20 09:04 MW [id number] 09/04/20 09:08 MW 09/04/20 09:04 Wound Center Nurse 2 #1- L MEDIAL LE (TRAUMA) -Time 09:04 -Correct Patient Yes -Correct Side, Site, Position Yes -Correct Procedure Yes -Procedure Performed No -Post Debridement (cm) - Length 2.0 -Post Debridement (cm) - Width 2.6 -Post Debridement (cm) - Depth 0.1 -Total Square (Post) (cm) 5.20 -Tunneling No -Undermining/Tunneling No -Circular Undermining No -Wound/Ulcer Outcome Not Healed -Ulcer Cleansing Not Cleansed -Foul Odor after Cleansing No -Bioengineered Tissue No -Bleeding Controlled with NA -Offloading No -Treatment Response Procedure Tolerated Well Pain Scale: 0-10 Numeric Is Patient Pain Free? Yes - Nurse 3 - General Ulcer D/C NN Start: 09/04/20 08:43 Freq: Status: Active Protocol: Activity Type Activity Date Activity User E-Sign Co-Sign Detail Recorded Client Recorded Date Recorded By Document 09/04/20 09:19 [facility] [id number] 09/04/20 09:20 [facility] 09/04/20 09:19 Wound Care Nurse 3 #1- L MEDIAL LE (TRAUMA) -Primary Dressing Applied Aquacel Extra -Primary Dressing Covered/Secured with Dry Gauze, Secured with Tape -Aquacel Extra 1 Left -Tubular Bandage Single Layer -Size of Tubigrip Used Size D -Size D ($) 1 Pain Scale: 0-10 Numeric Is Patient Pain Free? Yes - Visit Discharge Discharge Condition Stable Ambulatory Status Ambulatory Transportation Private Auto Wound debrided: l lllower leg No debridement was completed: No debridement was completed today Assessment & Plan Assessment/Plan (1) Non-healing non-surgical wound: PLAN: Cover L lower leg wound with Aquacel Xtra and cover with gauze and shanika single layer Tubigrip over top (2) Traumatic ecchymosis of left lower leg: (3) Chronic atrial fibrillation: (4) Blood thinned due to long-term anticoagulant use: (5) History of two vessel coronary artery bypass graft:
[2020-09-11 09:07] VITALS: BP 165/85; PULSE 96; TEMP 36.9; BMI 26.1
--- NOTE | 2020-09-11 12:02 | PN.PCM_ITS ---
History of Present Illness Date of Service: 09/12/20 Chief Complaint: follow up L medial lower leg History of Wound: Last was hitching the trailer to back of his truck and and the odilia gave out and the trailer fell on his L medial lower leg . He pushed his leg down into the mud so he did not break it. A large ecchymotic area and open area that is covered with scab at this time has developed Progress of Wound: today debrided the scab off and cultured the wound now sign of infection .Patient states has no pain either. Subjective Subjective no pain today Objective Data Objective Data will start Aquacel Xtra with adaptic over top and dry dressing QOD told us has home [facility] nurse doing the dressings now. Vital Signs: Vital Signs Temp Pulse Resp BP 98.5 F 96 16 165/85 H 09/11/20 09:07 09/11/20 09:07 09/04/20 08:43 09/11/20 09:07 Oxygen Delivery Method Room Air Weight: 157 lb Body Mass Index (BMI) 26.1 Lab / Micro Data Micro: aerobic and anaerobic cultures done Physical Exam Const oriented x3 General Appearance: cooperative Exam Limitations: no limitations HEENT normocephalic Head and Scalp: normal to inspection Face and Sinus: normal facial exam Nose: external nose normal General Ear: hearing grossly impaired External Ear: external ears normal Mouth: oral and palatal mucosa normal Eyes PERRL General Eye: normal appearance of both eyes Neck full ROM General: normal visual inspection Resp normal respiratory effort Effort and Inspection: able to speak in complete sentences Auscultation: clear to auscultation bilaterally Cardio regular rate and regular rhythm Palpation: normal PMI Rate: regular rate Rhythm: regular rhythm GI Auscultation: normoactive bowel sounds Palpation: soft and no hepatosplenomegaly external exam normal Back/Spine Cervical Spine: cervical ROM normal Thoracic Spine / Upper Back: normal to inspection Lumbar Spine / Lower Back: normal to inspection Extremity normal to inspection General Extremity: normal exam except as noted Skin no rashes or lesions noted Neuro oriented x3 Psych Appearance: grossly normal Speech: normal speech Thought Content: normal thought content Judgement: judgement good Debridement Note Debridement Note Post-Debridement Measurements and Additional Note: Post-Debridement Measurements/Treatment JOS - Nurse 1 - General Ulcer Assessment Start: 09/04/20 08:43 Freq: Status: Active Protocol: MARGARITAT Activity Type Activity Date Activity User E-Sign Co-Sign Detail Recorded Client Recorded Date Recorded By Document 09/04/20 08:43 [facility] [id number] 09/04/20 08:54 [facility] Document 09/11/20 09:07 KR [id number] 09/11/20 09:11 KR 09/04/20 09/11/20 08:43 09:07 WC - Today's Visit Information Type of service Initial Visit 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 ) Arrival Mode Ambulatory Ambulatory,Cane Transfer Assistance None Patient Identification Verified (Name & Yes Yes ) Patient Requires Transmission-Based No Precautions Height and Weight Height 5 ft 5 in Weight 157 lb Weight in Pounds 157.0 lbs Body Mass Index (BMI) 26.1 26.1 BMI Classification Overweight Overweight BSA - Anna 1.78 Vital Signs Temperature (97.8 F-99.1 F) 97.7 F L 98.5 F Temperature Source Temporal Temporal Pulse Rate (60-100) 65 96 Pulse Location Monitor Monitor Respiratory Rate (12-18) 16 Respiratory rate source Observation Oxygen Delivery Method Room Air Blood Pressure (90/60-120/80) 149/79 H 165/85 H Blood Pressure Mean (mm Hg) 102 111 Source Monitor Monitor Position Sitting Sitting Blood Pressure Location Right Arm Left Arm Have you changed medications since your No last visit? Any new allergies or adverse reactions No Had a fall/change in ADL's that may No increase risk of falls Signs or symptoms of abuse and/or No neglect since last visit Have you been in the hospital since your No last visit? Has dressing in place as prescribed Yes Has compression in place as prescribed Yes Has offloadiing in place as prescribed N/A Experienced any changes in pain level or No management History Since Last Visit- (Skip if this is Patient's initial visit) Left Footwear Regular Shoe Regular Shoe Right Footwear Regular Shoe Regular Shoe Pain Scale: 0-10 Numeric Is Patient Pain Free? Yes Yes Lower Extremity Assessment/ Foot Assessment/ Toe Nail Assessment Right -Posterior Tibial Doppler Monophasic -Dorsalis Pedis Doppler Monophasic -Extremity Color Pale -Hair Growth on Legs No -Hair Growth on Toes No -Temperature of Extremity Warm -Capillary Refill Less than 3 Seconds -Other Deformity No -Prior Foot Ulcer No -Charcot Joint No -Prior Amputation No -Thick No -Discolored No -Deformed No -Improper Length & Hygeine No Left -Posterior Tibial Doppler Monophasic -Dorsalis Pedis Doppler Monophasic -Extremity Color Pale -Hair Growth on Legs No -Hair Growth on Toes No -Temperature of Extremity Cool -Other Deformity No -Prior Foot Ulcer No -Charcot Joint No -Prior Amputation No -Thick No -Discolored No -Deformed No -Improper Length & Hygeine No Neuropathy Assessment Feet - Top Side and Bottom <Entered> (a) Communication Assessment Preferred language Ukrainian Able to Read Yes Able to Write Yes Communication Tools None Right Hearing Abillity Hard of Hearing Left Hearing Abillity Hard of Hearing Visual Assistive Devices Glasses Teaching Assessment Preferences Verbal,Written, Audio/Visual, Demonstration Barriers to Learning None Readiness To Learn Excellent Willingness to Engage in Self Management High Activies Readiness to Engage in Self Management High Activities Anxiety Level Calm Cooperation Cooperative Perception Coherent Interest in Health Problem Asks Questions Education Importance Acknowledges Need Does Patient Smoke tobacco or other No substances Smoking Status Never smoker Is Patient Diabetic No Functional Assessment Recent Decline in Ability to Perform Denies Any Declines 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 Cultural/Yazidism Needs that may affect No Treatment Plan Teaching: Wound Center *Welcome to the Wound Center -Person Taught Patient -Teaching Method Discussion -Response to teaching Verbalize understanding Welcome to the Wound Care Center Ukrainian (a) 1 - + WC - Nurse 1 - General Ulcer Measurement Start: 09/04/20 08:43 Freq: Status: Active Protocol: Activity Type Activity Date Activity User E-Sign Co-Sign Detail Recorded Client Recorded Date Recorded By Document 09/04/20 08:43 [facility] [id number] 09/04/20 08:54 [facility] Document 09/11/20 09:07 KR [id number] 09/11/20 09:11 KR 09/04/20 09/11/20 08:43 09:07 Wound Center Nurse 1 #1- L MEDIAL LE (TRAUMA) -Combined with other wound No -Current Size (cm) - Length 2 2.0 -Current Size (cm) - Width 2.6 2.4 -Current Size (cm) - Depth 0.1 0.1 -Total Square Cm 5.2 4.80 -Date of Last Picture (Recall this 09/04/20 field) -Photo Taken Yes -Epithelialization None Present -Tunneling No -Undermining/Tunneling No -Circular Undermining No -Exudate Amt None Present Small -Exudate Type Serosanguineous -Wound Margin Distinct, Fibrotic Scar, Outline Thickened Scar Attached -Granulation Amt None Present (0 None Present (0 %) %) -Slough/Fibrin Yes -Necrosis Amt Large (67-100%) Small (1-33%) -Necrotic Tissue Type Eschar Eschar -Texture (Elham-wound Skin Appearance) Assessed Assessed, Scarring -Moisture (Elham-wound Skin Appearance) Assessed No Abnormality, Assessed -Color (Elham-wound Skin Appearance) Ecchymosis No Abnormality, Assessed -Temperature (Elham-wound Skin No Abnormality No Abnormality Appearance) (Pt Warm) (Pt Warm) -Tenderness on Palpation (Elham-wound No No Skin Appearance) -Ulcer Cleansing Rinsed/ Rinsed/ Irrigated with Irrigated with Saline Saline -Foul Odor after Cleansing No No -Anesthetic Used 4% Lidocaine 4% Lidocaine Solution Solution,5% Lidocaine Gel Lower Limb Edema Present Yes Right Calf (cm) 35.6 Right Ankle (cm) 21.9 Left Calf (cm) 36.4 34 Left Ankle (cm) 23.3 23.3 WC - Nurse 2 - General Ulcer CM Notes Start: 09/04/20 08:43 Freq: Status: Active Protocol: Activity Type Activity Date Activity User E-Sign Co-Sign Detail Recorded Client Recorded Date Recorded By Document 09/04/20 09:04 MW [id number] 09/04/20 09:08 MW Document 09/11/20 09:21 MW [id number] 09/11/20 09:28 MW 09/04/20 09/11/20 09:04 09:21 Wound Center Nurse 2 #1- L MEDIAL LE (TRAUMA) -Time 09:04 09:22 -Correct Patient Yes Yes -Correct Side, Site, Position Yes Yes -Correct Procedure Yes Yes -Procedure Performed No Yes -Type of Procedure Debridement -Clinical Debridement Subcutaneous -Tissue Removed Subcutaneous -Post Debridement (cm) - Length 2.0 1.8 -Post Debridement (cm) - Width 2.6 2.2 -Post Debridement (cm) - Depth 0.1 0.3 -Total Square (Post) (cm) 5.20 3.96 -Area of Debridement (cm) - Length 1.8 -Area of Debridement (cm) - Width 2.2 -Total Square (Area) (cm) 3.96 -Tunneling No No -Undermining/Tunneling No No -Circular Undermining No No -Wound/Ulcer Outcome Not Healed Not Healed -Ulcer Cleansing Not Cleansed Rinsed/ Irrigated with Saline -Foul Odor after Cleansing No No -Bioengineered Tissue No No -Bleeding Controlled with NA Pressure -Offloading No No -Treatment Response Procedure Procedure Tolerated Well Tolerated Well -Debridement - Subq, 1st 20sq cm Yes Pain Scale: 0-10 Numeric Is Patient Pain Free? Yes - Nurse 3 - General Ulcer D/C NN Start: 09/04/20 08:43 Freq: Status: Active Protocol: Activity Type Activity Date Activity User E-Sign Co-Sign Detail Recorded Client Recorded Date Recorded By Document 09/04/20 09:19 [facility] [id number] 09/04/20 09:20 BM Document 09/11/20 09:34 MW [id number] 09/11/20 09:36 MW 09/04/20 09/11/20 09:19 09:34 Wound Care Nurse 3 #1- L MEDIAL LE (TRAUMA) -Ulcer Cleansing Rinsed/ Irrigated with Saline -Foul Odor after Cleansing No -Negative Pressure Wound Therapy N/A -Primary Dressing Applied Aquacel Extra Aquacel Extra, NonAdherent Contact Layer -Primary Dressing Covered/Secured with Dry Gauze, Dry Gauze & Secured with Roll Gauze, Tape Secured with Tape -Aquacel Extra 1 1 Left -Lotion applied to leg before No compression wrap -Tubular Bandage Single Layer -Size of Tubigrip Used Size D -Size D ($) 1 -Other single layer tubigrip Treatment Response Procedure Tolerated Well Pain Scale: 0-10 Numeric Is Patient Pain Free? Yes Yes Teaching: Wound Center Dressing Your Wound -Person Taught Patient -Teaching Method Discussion -Response to teaching Verbalize understanding WC - Visit Discharge Discharge Condition Stable Stable Ambulatory Status Ambulatory Ambulatory,Cane Transportation Private Auto Private Auto Accompanied by self Medication Reconcilliation completed & No provided to patient/care provider Clinical Summary of Care Provided Yes Wound debrided: L medial lower leg wound from trauma Type of Debridement: Excisional debridement Anesthesia Used: 5% Lidocaine Gel Depth: Down to and including healthy tissue and in the subcutaneous layer Percentage of wound debrided: 100 Instrument Used: 5mm curette Tissue Removed: devitalized tissue Severity: Fat Layer Exposed Amount of bleeding with debridement: None Bleeding Controlled with: Pressure Patient tolerated procedure: Patient tolerated procedure well Assessment/Plan Assessment/Plan (1) Blood thinned due to long-term anticoagulant use: CODE(S): Code(s): Z79.01 - USP (current) use of anticoagulants (2) Non-healing non-surgical wound: CODE(S): Code(s): T14.8XXA - Other injury of unspecified body region, initial encounter PLAN: wash the leg with antibacterial soap apply Aquacel Extra then moisten and cover with adaptic and gauze dressing QOD follow up 1 week (3) Traumatic ecchymosis of left lower leg: CODE(S): Code(s): S80.12XA - Contusion of left lower leg, initial encounter QUALIFIERS: Encounter type: subsequent encounter Qualified Code(s): S80.12XD - Contusion of left lower leg, subsequent encounter
[2020-09-18 09:18] VITALS: BP 130/70; PULSE 78; TEMP 36.4; BMI 26.1
--- NOTE | 2020-09-18 10:20 | PCM.WC.PN ---
History of Present Illness Date of Service: 09/18/20 Chief Complaint: follow up L medial lower leg History of Wound: Last was hitching the trailer to back of his truck and and the odilia gave out and the trailer fell on his L medial lower leg . He pushed his leg down into the mud so he did not break it. A large ecchymotic area and open area that is covered with scab at this time has developed Progress of Wound: today debrided the scab off and cultured the wound now sign of infection .Patient states has no pain either. Subjective Subjective Still complaining of pain in the left lower leg around the traumatic wound Objective Data Objective Data Cultures came back negative or rare patient will not be treated Wound looks clean all of the black scab is off wound is smaller and more shallow looks really good healing well on current treatment Vital Signs: Vital Signs Temp Pulse Resp BP 97.6 F L 78 16 130/70 H 09/18/20 09:18 09/18/20 09:18 09/04/20 08:43 09/18/20 09:18 Oxygen Delivery Method Room Air Weight: 157 lb Body Mass Index (BMI) 26.1 Lab / Micro Data Micro: Microbiology 09/11/20 09:25 Wound Abcess - Leg, Left Gram Stain - Final 09/11/20 09:25 Wound Abcess - Leg, Left Wound Culture - Final No growth aerobically. 09/11/20 09:25 Wound Abcess - Leg, Left Anaerobic Culture - Final No anaerobic bacteria isolated. Physical Exam Const oriented x3 General Appearance: cooperative Exam Limitations: no limitations Resp normal respiratory effort Effort and Inspection: able to speak in complete sentences Auscultation: clear to auscultation bilaterally Cardio regular rate and regular rhythm Palpation: normal PMI Rate: regular rate Rhythm: regular rhythm GI Auscultation: normoactive bowel sounds Palpation: soft and no hepatosplenomegaly external exam normal Back/Spine Cervical Spine: cervical ROM normal Thoracic Spine / Upper Back: normal to inspection Lumbar Spine / Lower Back: normal to inspection Extremity normal to inspection General Extremity: normal exam except as noted Skin no rashes or lesions noted Neuro oriented x3 Psych Appearance: grossly normal Speech: normal speech Thought Content: normal thought content Judgement: judgement good Debridement Note Debridement Note Post-Debridement Measurements and Additional Note: Post-Debridement Measurements/Treatment WC - Nurse 1 - General Ulcer Assessment Start: 09/04/20 08:43 Freq: Status: Active Protocol: WC.LOWEXT Activity Type Activity Date Activity User E-Sign Co-Sign Detail Recorded Client Recorded Date Recorded By Document 09/04/20 08:43 [facility] [id number] 09/04/20 08:54 [facility] Document 09/11/20 09:07 KR [id number] 09/11/20 09:11 KR Document 09/18/20 09:18 KR [id number] 09/18/20 09:24 KR 09/04/20 09/11/20 09/18/20 08:43 09:07 09:18 WC - Today's Visit Information Type of service Initial Visit Follow-up Visit Follow-up Visit (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 (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 ) ) Arrival Mode Ambulatory Ambulatory,Cane Ambulatory Transfer Assistance None Patient Identification Verified (Name & Yes Yes Yes ) Patient Requires Transmission-Based No Precautions Height and Weight Height 5 ft 5 in Weight 157 lb Weight in Pounds 157.0 lbs Body Mass Index (BMI) 26.1 26.1 26.1 BMI Classification Overweight Overweight Overweight BSA - Anna 1.78 Vital Signs Temperature (97.8 F-99.1 F) 97.7 F L 98.5 F 97.6 F L Temperature Source Temporal Temporal Temporal Pulse Rate (60-100) 65 96 78 Pulse Location Monitor Monitor Monitor Respiratory Rate (12-18) 16 Respiratory rate source Observation Oxygen Delivery Method Room Air Blood Pressure (90/60-120/80) 149/79 H 165/85 H 130/70 H Blood Pressure Mean (mm Hg) 102 111 90 Source Monitor Monitor Monitor Position Sitting Sitting Semi-Fowlers Blood Pressure Location Right Arm Left Arm Left Arm Have you changed medications since your No last visit? Any new allergies or adverse reactions No No Had a fall/change in ADL's that may No No increase risk of falls Signs or symptoms of abuse and/or No No neglect since last visit Have you been in the hospital since your No No last visit? Has dressing in place as prescribed Yes Yes Has compression in place as prescribed Yes N/A Has offloadiing in place as prescribed N/A N/A Experienced any changes in pain level or No No management History Since Last Visit- (Skip if this is Patient's initial visit) Left Footwear Regular Shoe Regular Shoe Regular Shoe Right Footwear Regular Shoe Regular Shoe Regular Shoe Pain Scale: 0-10 Numeric Is Patient Pain Free? Yes Yes Yes Lower Extremity Assessment/ Foot Assessment/ Toe Nail Assessment Right -Posterior Tibial Doppler Monophasic -Dorsalis Pedis Doppler Monophasic -Extremity Color Pale -Hair Growth on Legs No -Hair Growth on Toes No -Temperature of Extremity Warm -Capillary Refill Less than 3 Seconds -Other Deformity No -Prior Foot Ulcer No -Charcot Joint No -Prior Amputation No -Thick No -Discolored No -Deformed No -Improper Length & Hygeine No Left -Posterior Tibial Doppler Monophasic -Dorsalis Pedis Doppler Monophasic -Extremity Color Pale -Hair Growth on Legs No -Hair Growth on Toes No -Temperature of Extremity Cool -Other Deformity No -Prior Foot Ulcer No -Charcot Joint No -Prior Amputation No -Thick No -Discolored No -Deformed No -Improper Length & Hygeine No Neuropathy Assessment Feet - Top Side and Bottom <Entered> (a) Communication Assessment Preferred language Hungarian Able to Read Yes Able to Write Yes Communication Tools None Right Hearing Abillity Hard of Hearing Left Hearing Abillity Hard of Hearing Visual Assistive Devices Glasses Teaching Assessment Preferences Verbal,Written, Audio/Visual, Demonstration Barriers to Learning None Readiness To Learn Excellent Willingness to Engage in Self Management High Activies Readiness to Engage in Self Management High Activities Anxiety Level Calm Cooperation Cooperative Perception Coherent Interest in Health Problem Asks Questions Education Importance Acknowledges Need Does Patient Smoke tobacco or other No substances Smoking Status Never smoker Is Patient Diabetic No Functional Assessment Recent Decline in Ability to Perform Denies Any Declines 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[place] Needs that may affect No Treatment Plan Teaching: Wound Center *Welcome to the Wound Center -Person Taught Patient -Teaching Method Discussion -Response to teaching Verbalize understanding Welcome to the Wound Care Center Hungarian (a) 1 - + WC - Nurse 1 - General Ulcer Measurement Start: 09/04/20 08:43 Freq: Status: Active Protocol: Activity Type Activity Date Activity User E-Sign Co-Sign Detail Recorded Client Recorded Date Recorded By Document 09/04/20 08:43 [facility] [id number] 09/04/20 08:54 [facility] Document 09/11/20 09:07 KR [id number] 09/11/20 09:11 KR Document 09/18/20 09:18 KR [id number] 09/18/20 09:24 KR 09/04/20 09/11/20 09/18/20 08:43 09:07 09:18 Wound Center Nurse 1 #1- L MEDIAL LE (TRAUMA) -Combined with other wound No -Current Size (cm) - Length 2 2.0 1.6 -Current Size (cm) - Width 2.6 2.4 2.1 -Current Size (cm) - Depth 0.1 0.1 0.2 -Total Square Cm 5.2 4.80 3.36 -Date of Last Picture (Recall this 09/04/20 field) -Photo Taken Yes -Epithelialization None Present -Tunneling No -Undermining/Tunneling No -Circular Undermining No -Exudate Amt None Present Small Medium -Exudate Type Serosanguineous Serosanguineous -Wound Margin Distinct, Fibrotic Scar, Distinct, Outline Thickened Scar Outline Attached Attached -Granulation Amt None Present (0 None Present (0 Medium (34-66%) %) %) -Granulation Quality Red -Slough/Fibrin Yes -Necrosis Amt Large (67-100%) Small (1-33%) Medium (34-66%) -Necrotic Tissue Type Eschar Eschar Adherent Slough -Texture (Elham-wound Skin Appearance) Assessed Assessed, Assessed, Scarring Scarring -Moisture (Elham-wound Skin Appearance) Assessed No Abnormality, No Abnormality, Assessed Assessed -Color (Elham-wound Skin Appearance) Ecchymosis No Abnormality, Assessed, Assessed Ecchymosis -Temperature (Elham-wound Skin No Abnormality No Abnormality No Abnormality Appearance) (Pt Warm) (Pt Warm) (Pt Warm) -Tenderness on Palpation (Elham-wound No No No Skin Appearance) -Ulcer Cleansing Rinsed/ Rinsed/ Rinsed/ Irrigated with Irrigated with Irrigated with Saline Saline Saline -Foul Odor after Cleansing No No No -Anesthetic Used 4% Lidocaine 4% Lidocaine 5% Lidocaine Solution Solution,5% Gel Lidocaine Gel Lower Limb Edema Present Yes Right Calf (cm) 35.6 Right Ankle (cm) 21.9 Left Calf (cm) 36.4 34 Left Ankle (cm) 23.3 23.3 WC - Nurse 2 - General Ulcer CM Notes Start: 09/04/20 08:43 Freq: Status: Active Protocol: Activity Type Activity Date Activity User E-Sign Co-Sign Detail Recorded Client Recorded Date Recorded By Document 09/04/20 09:04 MW [id number] 09/04/20 09:08 MW Document 09/11/20 09:21 MW [id number] 09/11/20 09:28 MW Document 09/18/20 09:39 MW [id number] 09/18/20 09:42 MW 09/04/20 09/11/20 09/18/20 09:04 09:21 09:39 Wound Center Nurse 2 #1- L MEDIAL LE (TRAUMA) -Time 09:04 09:22 09:40 -Correct Patient Yes Yes Yes -Correct Side, Site, Position Yes Yes Yes -Correct Procedure Yes Yes Yes -Procedure Performed No Yes Yes -Type of Procedure Debridement Debridement -Clinical Debridement Subcutaneous Subcutaneous -Tissue Removed Subcutaneous Subcutaneous -Post Debridement (cm) - Length 2.0 1.8 1.8 -Post Debridement (cm) - Width 2.6 2.2 1.3 -Post Debridement (cm) - Depth 0.1 0.3 0.2 -Total Square (Post) (cm) 5.20 3.96 2.34 -Area of Debridement (cm) - Length 1.8 1.8 -Area of Debridement (cm) - Width 2.2 1.3 -Total Square (Area) (cm) 3.96 2.34 -Tunneling No No No -Undermining/Tunneling No No No -Circular Undermining No No No -Wound/Ulcer Outcome Not Healed Not Healed Not Healed -Ulcer Cleansing Not Cleansed Rinsed/ Irrigated with Saline -Foul Odor after Cleansing No No No -Bioengineered Tissue No No No -Bleeding Controlled with NA Pressure Pressure -Offloading No No No -Treatment Response Procedure Procedure Procedure Tolerated Well Tolerated Well Tolerated Well -Debridement - Subq, 1st 20sq cm Yes Yes Pain Scale: 0-10 Numeric Is Patient Pain Free? Yes Yes WC - Nurse 3 - General Ulcer D/C NN Start: 09/04/20 08:43 Freq: Status: Active Protocol: Activity Type Activity Date Activity User E-Sign Co-Sign Detail Recorded Client Recorded Date Recorded By Document 09/04/20 09:19 [facility] [id number] 09/04/20 09:20 BM Document 09/11/20 09:34 MW [id number] 09/11/20 09:36 MW Document 09/18/20 09:54 [facility] [id number] 09/18/20 09:55 BM 09/04/20 09/11/20 09/18/20 09:19 09:34 09:54 Wound Care Nurse 3 #1- L MEDIAL LE (TRAUMA) -Ulcer Cleansing Rinsed/ Rinsed/ Irrigated with Irrigated with Saline Saline -Foul Odor after Cleansing No No -Negative Pressure Wound Therapy N/A -Primary Dressing Applied Aquacel Extra Aquacel Extra, Aquacel Extra, NonAdherent NonAdherent Contact Layer Contact Layer -Primary Dressing Covered/Secured with Dry Gauze, Dry Gauze & Dry Gauze & Secured with Roll Gauze, Roll Gauze, Tape Secured with Secured with Tape Tape -Aquacel Extra 1 1 1 Left -Lotion applied to leg before No compression wrap -Tubular Bandage Single Layer Single Layer -Size of Tubigrip Used Size D Size C -Size C ($) 1 -Size D ($) 1 -Other single layer tubigrip Treatment Response Procedure Procedure Tolerated Well Tolerated Well Pain Scale: 0-10 Numeric Is Patient Pain Free? Yes Yes Yes Teaching: Wound Center Dressing Your Wound -Person Taught Patient -Teaching Method Discussion -Response to teaching Verbalize understanding WC - Visit Discharge Discharge Condition Stable Stable Stable Ambulatory Status Ambulatory Ambulatory,Cane Ambulatory Transportation Private Auto Private Auto Private Auto Accompanied by self Medication Reconcilliation completed & No provided to patient/care provider Clinical Summary of Care Provided Yes Wound Grade/Stage: Left mid lower leg traumatic wound Type of Debridement: Excisional debridement Anesthesia Used: 5% Lidocaine Gel Depth: Down to and including healthy tissue and in the subcutaneous layer Percentage of wound debrided: 100 Instrument Used: 5mm curette Tissue Removed: Fibrin and some devitalized tissue Severity: Fat Layer Exposed Amount of bleeding with debridement: Mild Bleeding Controlled with: Compression and gauze Patient tolerated procedure: Patient tolerated procedure well Assessment/Plan Assessment/Plan (1) Blood thinned due to long-term anticoagulant use: CODE(S): Z79.01 - jail (current) use of anticoagulants (2) Non-healing non-surgical wound: CODE(S): T14.8XXA - Other injury of unspecified body region, initial encounter PLAN: Continue with home health care and family members doing the dressing changes Wash leg with antibacterial soap and apply the Aquacel extra to the wound base cover with Adaptic gauze and a double layer Tubigrip over top We will apply for epifix to heal his leg Follow-up in 1 week (3) Traumatic ecchymosis of left lower leg: CODE(S): S80.12XA - Contusion of left lower leg, initial encounter QUALIFIERS: Encounter type: subsequent encounter Qualified Code(s): S80.12XD - Contusion of left lower leg, subsequent encounter PLAN: Continue the double layer Tubigrip to the left leg
== END 2020-09-23 23:59 ==
LOC: WC 09:15
PROVIDERS: PCP Family Medicine Geriatric Medicine; Visit Provider Nurse Practitioner
DX: S80.12XA Contusion of left lower leg, initial encounter (principal); W20.8XXA Other cause of strike by thrown, projected or falling object, initial encounter; Y93.89 Activity, other specified; Y92.9 Unspecified place or not applicable; Y99.9 Unspecified external cause status; I25.10 Atherosclerotic heart disease of native coronary artery without angina pectoris; E78.00 Pure hypercholesterolemia, unspecified; I48.20 Chronic atrial fibrillation, unspecified; Z79.899 Other long term (current) drug therapy; Z79.01 Long term (current) use of anticoagulants; Z79.52 Long term (current) use of systemic steroids; Z95.810 Presence of automatic (implantable) cardiac defibrillator; Z95.1 Presence of aortocoronary bypass graft
CPT/HCPCS: 11042; 87070; 87075; 87205; 99213; G0463

== ENCOUNTER → 2020-10-22 09:16 | Outpatient (CLI) | payer MEDICARE, SELFPAY ==
[2020-10-16 09:34] VITALS: BMI 26.1
[2020-10-22 12:34] LABS: Absolute Neutrophil Count 5.4 X10^3/uL (2.0-7.7); Basophil# 0.05 X10^3/uL; Basophil% 0.6 % (0-1); Eosinophils% 1.2 % (0-5); Hematocrit 39.1 % (40-54); Hemoglobin 12.6 g/dL (13.0-16.5); Mean Corp Hgb Conc 32.2 g/dL (32-36); Mean Corpuscular Hgb 30.9 pg (27.0-32.0); Mean Corpuscular Volume 95.8 fL (80-94); Mean Platelet Vol. 10.4 fl (6.2-12.0); Monocyte# 0.82 X10^3/uL; NRBC Flagged by Analyzer 0 % (0-5); Neutrophil # 5.38 X10^3/uL (2.7-7.7); Neutrophil % 65.8 % (47-70); Platelet Count 243 K/mm3 (150-450); RBC Distribution Width CV 15.2 % (11.6-14.6); RBC Distribution Width SD 54.1 fl (35.1-43.9); Red Blood Count 4.08 M/mm3 (4.6-6.2); White Blood Count 8.2 K/mm3 (4.4-11.0)
[2020-10-22 12:48] LABS: Vitamin D,25 Hydroxy 28.9 ng/mL
[2020-10-22 12:59] LABS: ALB/GLOB Ratio 1.2 RATIO (0.9-2.4); AST(SGOT) 19 U/L (15-37); Alanine Aminotransfer ALT/SGPT 25 U/L (16-61); Albumin, Serum 3.6 g/dL (3.2-5.0); Alkaline Phosphatase 69 U/L (45-117); Anion Gap 7 (5-15); BUN 17 mg/dL (7-18); BUN/Creat Ratio 16.7 RATIO (10-20); Calcium,Total 9.4 mg/dL (8.5-10.1); Chloride 107 mmol/L (98-107); Creatinine, Serum 1.02 mg/dL (0.70-1.30); EST Glomerular Filtration Rate 74 mL/min (>60); Est Glom Filt Rate - Afr Amer 89 mL/min (>60); Globulin 2.9 g/dL (2.2-4.2); Glucose 90 mg/dL (74-106); Potassium 4.1 mmol/L (3.5-5.1); Protein, Total 6.5 g/dL (6.4-8.2); Sodium Level 140 mmol/L (136-145); Thyroid Stim Hormone (TSH) 2.21 uIU/mL (0.358-3.74)
== END ==
PROVIDERS: PCP Family Medicine Geriatric Medicine; Visit Provider Family Medicine Geriatric Medicine
DX: E55.9 Vitamin D deficiency, unspecified (principal); I10 Essential (primary) hypertension
CPT/HCPCS: 36415; 80053; 82306; 84443; 85025

== ENCOUNTER → 2020-10-23 06:27 | Outpatient (CLI) | payer MEDICARE, SELFPAY ==
[2020-10-09 10:18] VITALS: BMI 26.1
[2020-10-16 09:34] VITALS: BMI 26.1
--- NOTE | 2020-10-23 09:04 | STRESSREP ---
Stress Test Report Date: 10-23-2020 Procedure: Pharmacologic stress nuclear imaging study Indications: Chest pain; CAD; CABG; atrial fibrillation; status post PPM Consent: Per the patient Procedure: The patient underwent pharmacologic (Regadenoson 0.4mg ) evaluation with a peak heart rate of 133 beats per minute (97%predicted maximal heart rate) and a peak blood pressure of 118/64 mmHg. The baseline ECG demonstrated atrial fibrillation with nonspecific ST/T wave abnormality. The peak pharmacologic ECG demonstrated no obvious ECG changes. There was an isolated PVC during recovery. There was no complaint of chest discomfort during pharmacologic infusion or recovery. The examination was discontinued secondary to completion of protocol. Impression: 1. Pharmacologic (Regadenoson) evaluation 2. Peak pharmacologic ECG with no obvious ECG changes. 3. There was an isolated PVC during recovery. 4. Nuclear images pending Myocardial perfusion imaging study: Technique: The patient was injected with 11.5 millicuries of technetium 99m Cardiolite and subsequently rest SPECT Cardiolite nuclear imaging was obtained in the horizontal long, vertical long, and short axis views. The patient underwent pharmacologic (Regadenoson) evaluation with a peak heart rate of 133 beats per minute (97% percent predicted maximal heart rate) and a peak blood pressure of 118/64 mmHg. The patient was injected with 33.7 millicuries of technetium 99m Cardiolite and subsequently stress SPECT Cardiolite nuclear imaging was obtained in the horizontal long, vertical long, and short axis views. A gated Cardiolite study at peak stress was obtained. Interpretation: Rest and stress SPECT Cardiolite nuclear imaging status post realignment, normalization, and attenuation correction demonstrate an area of decreased myocardial perfusion/tracer uptake in portions of the basal inferolateral segments without significant change between rest and stress. There is diminished end systolic thickening and brightening in the aforementioned area. The gated Cardiolite study demonstrates diminished myocardial thickening and inward wall motion. The reported LVEF is 38%. Impression: 1. Rest and stress SPECT Cardiolite nuclear imaging demonstrate myocardial perfusion changes appearing compatible with an area of previous myocardial injury/infarction in portions of the basal inferolateral area with no myocardial perfusion changes considered diagnostic for associated stress-induced myocardial ischemia. 2. The gated Cardiolite study reports an LVEF of 38%. This note was generated with [employer] software. It may contain incorrect words, spelling, and punctuation that were not noted in checking the note before signing.
== END ==
PROVIDERS: PCP Family Medicine Geriatric Medicine; Referring Provider Internal Medicine Cardiovascular Disease; Visit Provider Internal Medicine Cardiovascular Disease
DX: R07.9 Chest pain, unspecified (principal); I50.32 Chronic diastolic (congestive) heart failure; R94.30 Abnormal result of cardiovascular function study, unspecified; I25.810 Atherosclerosis of coronary artery bypass graft(s) without angina pectoris; Z95.5 Presence of coronary angioplasty implant and graft; Z95.1 Presence of aortocoronary bypass graft
CPT/HCPCS: 78452; 93017; A9500; A4216; J2785

== ENCOUNTER 2020-10-23 11:15 | Outpatient (RCR) | payer MEDICARE, SELFPAY ==
[2020-09-24 00:41] VITALS: BP 130/70; PULSE 78; RESP 16; TEMP 36.4
[2020-09-25 09:26] VITALS: BP 121/73; PULSE 91; TEMP 36.8; BMI 26.1
--- NOTE | 2020-09-25 11:54 | PCM.WC.PN ---
History of Present Illness Date of Service: 09/25/20 Chief Complaint: follow up L medial lower leg History of Wound: Last was hitching the trailer to back of his truck and and the odilia gave out and the trailer fell on his L medial lower leg . He pushed his leg down into the mud so he did not break it. A large ecchymotic area and open area that is covered with scab at this time has developed Subjective Subjective patient states improving not burning or painful as was Objective Data Objective Data wound is smaller and base of the wound is beefy red and the ecchymosis around the area is better. Still applying of skin sub to finish the depth . Vital Signs: Vital Signs Temp Pulse Resp BP 98.3 F 91 16 121/73 H 09/25/20 09:26 09/25/20 09:26 09/24/20 00:41 09/25/20 09:26 Weight: 157 lb Body Mass Index (BMI) 26.1 Physical Exam Const oriented x3 General Appearance: cooperative Exam Limitations: no limitations Resp normal respiratory effort Effort and Inspection: able to speak in complete sentences Auscultation: clear to auscultation bilaterally Cardio regular rate and regular rhythm Palpation: normal PMI Rate: regular rate Rhythm: regular rhythm external exam normal Extremity normal to inspection General Extremity: normal exam except as noted Skin no rashes or lesions noted Neuro oriented x3 Psych Appearance: grossly normal Speech: normal speech Thought Content: normal thought content Judgement: judgement good Debridement Note Debridement Note Post-Debridement Measurements and Additional Note: Post-Debridement Measurements/Treatment - Nurse 1 - General Ulcer Assessment Start: 09/25/20 09:26 Freq: Status: Active Protocol: DAVEY Activity Type Activity Date Activity User E-Sign Co-Sign Detail Recorded Client Recorded Date Recorded By Document 09/25/20 09:26 KR [id number] 09/25/20 09:28 LEX[facility] 09/25/20 09:26 - Today's Visit Information Type of service Follow-up Visit (Physician/GROUND CREWMAN ) Arrival Mode Ambulatory Patient Identification Verified (Name & Yes ) Height and Weight Body Mass Index (BMI) 26.1 BMI Classification Overweight Vital Signs Temperature (97.8 F-99.1 F) 98.3 F Temperature Source Temporal Pulse Rate (60-100) 91 Pulse Location Monitor Blood Pressure (90/60-120/80) 121/73 H Blood Pressure Mean (mm Hg) 89 Source Monitor Position Sitting Blood Pressure Location Right Arm History Since Last Visit- (Skip if this is Patient's initial visit) Have you changed medications since your No last visit? Any new allergies or adverse reactions No Had a fall/change in ADL's that may No increase risk of falls Signs or symptoms of abuse and/or No neglect since last visit Have you been in the hospital since your No last visit? Has dressing in place as prescribed Yes Has compression in place as prescribed N/A Has offloadiing in place as prescribed N/A Experienced any changes in pain level or No management Left Footwear Regular Shoe Right Footwear Regular Shoe Pain Scale: 0-10 Numeric Is Patient Pain Free? Yes JOS - Nurse 1 - General Ulcer Measurement Start: 09/25/20 09:26 Freq: Status: Active Protocol: Activity Type Activity Date Activity User E-Sign Co-Sign Detail Recorded Client Recorded Date Recorded By Document 09/25/20 09:26 KR [id number] 09/25/20 09:28 KR 09/25/20 09:26 Wound Center Nurse 1 #1- L MEDIAL LE (TRAUMA) -Current Size (cm) - Length 1.6 -Current Size (cm) - Width 1.2 -Current Size (cm) - Depth 0.2 -Total Square Cm 1.92 -Exudate Amt Small -Exudate Type Serosanguineous -Wound Margin Distinct, Outline Attached -Granulation Amt Medium (34-66%) -Granulation Quality Red -Necrosis Amt Medium (34-66%) -Necrotic Tissue Type Adherent Slough -Texture (Elham-wound Skin Appearance) Assessed, Scarring -Moisture (Elham-wound Skin Appearance) No Abnormality, Assessed -Color (Elham-wound Skin Appearance) No Abnormality, Assessed -Temperature (Elham-wound Skin No Abnormality Appearance) (Pt Warm) -Tenderness on Palpation (Elham-wound No Skin Appearance) -Ulcer Cleansing Rinsed/ Irrigated with Saline -Foul Odor after Cleansing No -Anesthetic Used 4% Lidocaine Solution JOS - Nurse 2 - General Ulcer CM Notes Start: 09/25/20 09:26 Freq: Status: Active Protocol: Activity Type Activity Date Activity User E-Sign Co-Sign Detail Recorded Client Recorded Date Recorded By Document 09/25/20 09:37 MW [id number] 09/25/20 09:39 MW 06/02/21 09:37 Wound Center Nurse 2 -Time 09:38 -Correct Patient Yes -Correct Side, Site, Position Yes -Correct Procedure Yes -Procedure Performed Yes -Type of Procedure Debridement -Clinical Debridement Subcutaneous -Tissue Removed Subcutaneous -Post Debridement (cm) - Length 1.3 -Post Debridement (cm) - Width 0.9 -Post Debridement (cm) - Depth 0.3 -Total Square (Post) (cm) 1.17 -Area of Debridement (cm) - Length 1.3 -Area of Debridement (cm) - Width 0.9 -Total Square (Area) (cm) 1.17 -Tunneling No -Undermining/Tunneling No -Circular Undermining No -Wound/Ulcer Outcome Not Healed -Ulcer Cleansing Rinsed/ Irrigated with Saline -Foul Odor after Cleansing No -Bioengineered Tissue No -Bleeding Controlled with Pressure -Offloading No -Treatment Response Procedure Tolerated Well -Debridement - Subq, 1st 20sq cm Yes Pain Scale: 0-10 Numeric Is Patient Pain Free? Yes Wound debrided: Left medial lower leg Laterality: Left Type of Debridement: Excisional debridement Anesthesia Used: 5% Lidocaine Gel Depth: Down to and including healthy tissue and in the subcutaneous layer Percentage of wound debrided: 100 Instrument Used: 5mm curette Tissue Removed: Devitalized tissue and fibrin Severity: Fat Layer Exposed Amount of bleeding with debridement: Mild Bleeding Controlled with: Pressure and Compression and gauze Patient tolerated procedure: Patient tolerated procedure well Assessment/Plan Assessment/Plan (1) Non-healing non-surgical wound: CODE(S): T14.8XXA - Other injury of unspecified body region, initial encounter PLAN: Applying for skin substitute (2) Traumatic ecchymosis of left lower leg: CODE(S): S80.12XA - Contusion of left lower leg, initial encounter QUALIFIERS: Encounter type: subsequent encounter Qualified Code(s): S80.12XD - Contusion of left lower leg, subsequent encounter PLAN: Continue wrapping leg or using Tubigrip's (3) Blood thinned due to long-term anticoagulant use: CODE(S): Z79.01 - skilled nursing (current) use of anticoagulants (4) 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
[2020-10-02 10:23] VITALS: BP 80/57; PULSE 83; RESP 16; TEMP 36.7; BMI 26.1
--- NOTE | 2020-10-02 13:11 | PCM.WC.PN ---
History of Present Illness Date of Service: 10/02/20 Chief Complaint: follow up L medial lower leg History of Wound: Last was hitching the trailer to back of his truck and and the odilia gave out and the trailer fell on his L medial lower leg . He pushed his leg down into the mud so he did not break it. A large ecchymotic area and open area that is covered with scab at this time has developed Subjective Subjective no concerns has home [facility] care doing the wound care. Objective Data Objective Data Grant peripheral vascular disease that is making it slow to heal .He was approved for epifix today . Still has significant depth and bleeds easily Vital Signs: Vital Signs Temp Pulse Resp BP 98.0 F 83 16 80/57 L 10/02/20 10:23 10/02/20 10:23 10/02/20 10:23 10/02/20 10:23 Weight: 157 lb Body Mass Index (BMI) 26.1 Physical Exam Const oriented x3 General Appearance: cooperative Exam Limitations: no limitations HEENT normocephalic Head and Scalp: normal to inspection Face and Sinus: normal facial exam Nose: external nose normal General Ear: hearing grossly impaired External Ear: external ears normal Mouth: oral and palatal mucosa normal Eyes PERRL General Eye: normal appearance of both eyes Neck full ROM General: normal visual inspection Resp normal respiratory effort Effort and Inspection: able to speak in complete sentences Auscultation: clear to auscultation bilaterally Cardio regular rate and regular rhythm Palpation: normal PMI Rate: regular rate Rhythm: regular rhythm GI Auscultation: normoactive bowel sounds Palpation: soft and no hepatosplenomegaly external exam normal Back/Spine Cervical Spine: cervical ROM normal Thoracic Spine / Upper Back: normal to inspection Lumbar Spine / Lower Back: normal to inspection Extremity normal to inspection General Extremity: normal exam except as noted Skin no rashes or lesions noted Neuro oriented x3 Psych Appearance: grossly normal Speech: normal speech Thought Content: normal thought content Judgement: judgement good Debridement Note Debridement Note Post-Debridement Measurements and Additional Note: Post-Debridement Measurements/Treatment WC - Nurse 1 - General Ulcer Assessment Start: 09/25/20 09:26 Freq: Status: Active Protocol: DAVEY Activity Type Activity Date Activity User E-Sign Co-Sign Detail Recorded Client Recorded Date Recorded By Document 09/25/20 09:26 KR [id number] 09/25/20 09:28 KR Document 10/02/20 10:23 MS [id number] 10/02/20 10:32 MS 09/25/20 10/02/20 09:26 10:23 - Today's Visit Information Type of service Follow-up Visit Follow-up Visit (Physician/PUBLIC HEALTH PROGRAM MANAGER (Physician/PUBLIC HEALTH PROGRAM MANAGER ) ) Arrival Mode Ambulatory Ambulatory Patient Identification Verified (Name & Yes Yes ) Patient Requires Transmission-Based No Precautions Safety Precautions NA Height and Weight Body Mass Index (BMI) 26.1 26.1 BMI Classification Overweight Overweight Vital Signs Temperature (97.8 F-99.1 F) 98.3 F 98.0 F Temperature Source Temporal Temporal Pulse Rate (60-100) 91 83 Pulse Location Monitor Monitor Respiratory Rate (12-18) 16 Respiratory rate source Observation Blood Pressure (90/60-120/80) 121/73 H 80/57 L Blood Pressure Mean (mm Hg) 89 64 Source Monitor Monitor Position Sitting Sitting Blood Pressure Location Right Arm Left Arm History Since Last Visit- (Skip if this is Patient's initial visit) Have you changed medications since your No No last visit? Any new allergies or adverse reactions No No Had a fall/change in ADL's that may No No increase risk of falls Signs or symptoms of abuse and/or No No neglect since last visit Have you been in the hospital since your No No last visit? Has dressing in place as prescribed Yes Yes Has compression in place as prescribed N/A N/A Has offloadiing in place as prescribed N/A N/A Experienced any changes in pain level or No No management Left Footwear Regular Shoe Regular Shoe Right Footwear Regular Shoe Regular Shoe Pain Scale: 0-10 Numeric Is Patient Pain Free? Yes Yes - Nurse 1 - General Ulcer Measurement Start: 09/25/20 09:26 Freq: Status: Active Protocol: Activity Type Activity Date Activity User E-Sign Co-Sign Detail Recorded Client Recorded Date Recorded By Document 09/25/20 09:26 KR [id number] 09/25/20 09:28 KR Document 10/02/20 10:23 MS [id number] 10/02/20 10:32 MS 09/25/20 10/02/20 09:26 10:23 Wound Center Nurse 1 #1- L MEDIAL LE (TRAUMA) -Current Size (cm) - Length 1.6 1 -Current Size (cm) - Width 1.2 1 -Current Size (cm) - Depth 0.2 0.3 -Total Square Cm 1.92 1 -Exudate Amt Small Medium -Exudate Type Serosanguineous Serosanguineous -Wound Margin Distinct, Distinct, Outline Outline Attached Attached -Granulation Amt Medium (34-66%) -Granulation Quality Red Red -Slough/Fibrin Yes -Necrosis Amt Medium (34-66%) Medium (34-66%) -Necrotic Tissue Type Adherent Slough Adherent Slough -Texture (Elham-wound Skin Appearance) Assessed, No Abnormality, Scarring Callus -Moisture (Elham-wound Skin Appearance) No Abnormality, Assessed -Color (Elham-wound Skin Appearance) No Abnormality, No Abnormality Assessed -Temperature (Elham-wound Skin No Abnormality No Abnormality Appearance) (Pt Warm) (Pt Warm) -Tenderness on Palpation (Elham-wound No Skin Appearance) -Ulcer Cleansing Rinsed/ Rinsed/ Irrigated with Irrigated with Saline Saline -Foul Odor after Cleansing No -Anesthetic Used 4% Lidocaine 4% Lidocaine Solution Solution WC - Nurse 2 - General Ulcer CM Notes Start: 09/25/20 09:26 Freq: Status: Active Protocol: Activity Type Activity Date Activity User E-Sign Co-Sign Detail Recorded Client Recorded Date Recorded By Document 09/25/20 09:37 MW [id number] 09/25/20 09:39 MW Document 10/02/20 10:48 MW [id number] 10/02/20 10:52 MW 09/25/20 10/02/20 09:37 10:48 Wound Center Nurse 2 #1- L MEDIAL LE (TRAUMA) -Time 09:38 10:49 -Correct Patient Yes Yes -Correct Side, Site, Position Yes Yes -Correct Procedure Yes Yes -Procedure Performed Yes Yes -Type of Procedure Debridement Debridement -Clinical Debridement Subcutaneous Subcutaneous -Tissue Removed Subcutaneous Subcutaneous -Post Debridement (cm) - Length 1.3 1.4 -Post Debridement (cm) - Width 0.9 0.9 -Post Debridement (cm) - Depth 0.3 0.3 -Total Square (Post) (cm) 1.17 1.26 -Area of Debridement (cm) - Length 1.3 1.4 -Area of Debridement (cm) - Width 0.9 0.9 -Total Square (Area) (cm) 1.17 1.26 -Tunneling No No -Undermining/Tunneling No No -Circular Undermining No No -Wound/Ulcer Outcome Not Healed Not Healed -Ulcer Cleansing Rinsed/ Rinsed/ Irrigated with Irrigated with Saline Saline -Foul Odor after Cleansing No No -Bioengineered Tissue No Yes -Type of Bioengineered Tissue Epifix 18mm Disc -Expiration Date 06/24/25 -Product Lot Number [id number] -Percent Used 100 -Lot number of Saline Used [id number] -Bleeding Controlled with Pressure Pressure -Offloading No No -Treatment Response Procedure Procedure Tolerated Well Tolerated Well -Debridement - Subq, 1st 20sq cm Yes No -Apply Skin Sub - 1st 25 sq cm - Legs 1 -Epifix 18mm Disc 3 Pain Scale: 0-10 Numeric Is Patient Pain Free? Yes - Nurse 3 - General Ulcer D/C NN Start: 09/25/20 09:26 Freq: Status: Active Protocol: Activity Type Activity Date Activity User E-Sign Co-Sign Detail Recorded Client Recorded Date Recorded By Document 10/02/20 10:56 LEXUS [id number] 10/02/20 10:56 LEXUS 10/02/20 10:56 Wound Care Nurse 3 -Primary Dressing Covered/Secured with Dry Gauze, Secured with Tape Pain Scale: 0-10 Numeric Is Patient Pain Free? Yes - Visit Discharge Discharge Condition Stable Ambulatory Status Ambulatory Transportation Private Auto Wound debrided: L medial lower leg Laterality: Left Type of Debridement: Excisional debridement Anesthesia Used: 5% Lidocaine Gel Depth: Down to and including healthy tissue and in the subcutaneous layer Percentage of wound debrided: 100 Instrument Used: 3mm curette Tissue Removed: fibrin and some slough Severity: Fat Layer Exposed Amount of bleeding with debridement: Mild Bleeding Controlled with: Compression and gauze Patient tolerated procedure: Patient tolerated procedure well Assessment/Plan Assessment/Plan (1) 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
[2020-10-09 10:18] VITALS: BP 110/60; PULSE 93; RESP 16; TEMP 36.9; BMI 26.1
--- NOTE | 2020-10-09 12:45 | PCM.WC.PN ---
History of Present Illness Date of Service: 10/09/20 Chief Complaint: follow up L medial lower leg History of Wound: Last was hitching the trailer to back of his truck and and the odilia gave out and the trailer fell on his L medial lower leg . He pushed his leg down into the mud so he did not break it. A large ecchymotic area and open area that is covered with scab at this time has developed Subjective Subjective feel like getting better Objective Data Objective Data After only 1 application it is improving Vital Signs: Vital Signs Temp Pulse Resp BP 98.4 F 93 16 110/60 10/09/20 10:18 10/09/20 10:18 10/09/20 10:18 10/09/20 10:18 Oxygen Delivery Method Room Air Weight: 157 lb Body Mass Index (BMI) 26.1 Physical Exam Const oriented x3 General Appearance: cooperative Exam Limitations: no limitations HEENT normocephalic Head and Scalp: normal to inspection Face and Sinus: normal facial exam Nose: external nose normal General Ear: hearing grossly impaired External Ear: external ears normal Mouth: oral and palatal mucosa normal Eyes PERRL General Eye: normal appearance of both eyes Neck full ROM General: normal visual inspection Resp normal respiratory effort Effort and Inspection: able to speak in complete sentences Auscultation: clear to auscultation bilaterally Cardio regular rate and regular rhythm Palpation: normal PMI Rate: regular rate Rhythm: regular rhythm GI Auscultation: normoactive bowel sounds Palpation: soft and no hepatosplenomegaly external exam normal Back/Spine Cervical Spine: cervical ROM normal Thoracic Spine / Upper Back: normal to inspection Lumbar Spine / Lower Back: normal to inspection Extremity normal to inspection General Extremity: normal exam except as noted Skin no rashes or lesions noted Neuro oriented x3 Psych Appearance: grossly normal Speech: normal speech Thought Content: normal thought content Judgement: judgement good Debridement Note Debridement Note Post-Debridement Measurements and Additional Note: Post-Debridement Measurements/Treatment WC - Nurse 1 - General Ulcer Assessment Start: 09/25/20 09:26 Freq: Status: Active Protocol: JOS.RAGHAVENDRA Activity Type Activity Date Activity User E-Sign Co-Sign Detail Recorded Client Recorded Date Recorded By Document 09/25/20 09:26 KR [id number] 09/25/20 09:28 KR Document 10/02/20 10:23 MS [id number] 10/02/20 10:32 MS Document 10/09/20 10:18 BMF [id number] 10/09/20 10:25 BMF 09/25/20 10/02/20 10/09/20 09:26 10:23 10:18 - Today's Visit Information Type of service Follow-up Visit Follow-up Visit Follow-up Visit (Physician/BIODIESEL ENGINEERING MANAGER (Physician/BIODIESEL ENGINEERING MANAGER (Physician/BIODIESEL ENGINEERING MANAGER ) ) ) Arrival Mode Ambulatory Ambulatory Ambulatory Transfer Assistance None Patient Identification Verified (Name & Yes Yes Yes ) Patient Requires Transmission-Based No No Precautions Safety Precautions NA Height and Weight Body Mass Index (BMI) 26.1 26.1 26.1 BMI Classification Overweight Overweight Overweight Vital Signs Temperature (97.8 F-99.1 F) 98.3 F 98.0 F 98.4 F Temperature Source Temporal Temporal Temporal Pulse Rate (60-100) 91 83 93 Pulse Location Monitor Monitor Monitor Respiratory Rate (12-18) 16 16 Respiratory rate source Observation Observation Oxygen Delivery Method Room Air Blood Pressure (90/60-120/80) 121/73 H 80/57 L 110/60 Blood Pressure Mean (mm Hg) 89 64 76 Source Monitor Monitor Monitor Position Sitting Sitting Sitting Blood Pressure Location Right Arm Left Arm Right Arm History Since Last Visit- (Skip if this is Patient's initial visit) Have you changed medications since your No No No last visit? Any new allergies or adverse reactions No No No Had a fall/change in ADL's that may No No No increase risk of falls Signs or symptoms of abuse and/or No No No neglect since last visit Have you been in the hospital since your No No No last visit? Has dressing in place as prescribed Yes Yes Yes Has compression in place as prescribed N/A N/A N/A Has offloadiing in place as prescribed N/A N/A N/A Experienced any changes in pain level or No No No management Left Footwear Regular Shoe Regular Shoe Regular Shoe Right Footwear Regular Shoe Regular Shoe Regular Shoe Pain Scale: 0-10 Numeric Is Patient Pain Free? Yes Yes Yes - Nurse 1 - General Ulcer Measurement Start: 09/25/20 09:26 Freq: Status: Active Protocol: Activity Type Activity Date Activity User E-Sign Co-Sign Detail Recorded Client Recorded Date Recorded By Document 09/25/20 09:26 KR [id number] 09/25/20 09:28 KR Document 10/02/20 10:23 MS [id number] 10/02/20 10:32 MS Document 10/09/20 10:18 BMF [id number] 10/09/20 10:25 BMF 09/25/20 10/02/20 10/09/20 09:26 10:23 10:18 Wound Center Nurse 1 #1- L MEDIAL LE (TRAUMA) -Combined with other wound No -Current Size (cm) - Length 1.6 1 1.1 -Current Size (cm) - Width 1.2 1 0.7 -Current Size (cm) - Depth 0.2 0.3 0.2 -Total Square Cm 1.92 1 0.77 -Photo Taken No -Epithelialization Small 1-33% -Tunneling No -Undermining/Tunneling No -Circular Undermining No -Exudate Amt Small Medium Medium -Exudate Type Serosanguineous Serosanguineous Serosanguineous -Wound Margin Distinct, Distinct, Distinct, Outline Outline Outline Attached Attached Attached -Granulation Amt Medium (34-66%) Large (67-100%) -Granulation Quality Red Red Red -Slough/Fibrin Yes Yes -Necrosis Amt Medium (34-66%) Medium (34-66%) Small (1-33%) -Necrotic Tissue Type Adherent Slough Adherent Slough Adherent Slough -Texture (Elham-wound Skin Appearance) Assessed, No Abnormality, Assessed, Scarring Callus Scarring -Moisture (Elham-wound Skin Appearance) No Abnormality, Assessed Assessed -Color (Elham-wound Skin Appearance) No Abnormality, No Abnormality Assessed Assessed -Temperature (Elham-wound Skin No Abnormality No Abnormality No Abnormality Appearance) (Pt Warm) (Pt Warm) (Pt Warm) -Tenderness on Palpation (Elham-wound No No Skin Appearance) -Ulcer Cleansing Rinsed/ Rinsed/ SOAPY WATER Irrigated with Irrigated with Saline Saline -Foul Odor after Cleansing No Yes, Due to Product Use -Anesthetic Used 4% Lidocaine 4% Lidocaine 5% Lidocaine Solution Solution Gel WC - Nurse 2 - General Ulcer CM Notes Start: 09/25/20 09:26 Freq: Status: Active Protocol: Activity Type Activity Date Activity User E-Sign Co-Sign Detail Recorded Client Recorded Date Recorded By Document 09/25/20 09:37 MW [id number] 09/25/20 09:39 MW Document 10/02/20 10:48 MW [id number] 10/02/20 10:52 MW Document 10/09/20 10:41 MW [id number] 10/09/20 10:46 MW 09/25/20 10/02/20 10/09/20 09:37 10:48 10:41 Wound Center Nurse 2 #1- L MEDIAL LE (TRAUMA) -Time 09:38 10:49 10:41 -Correct Patient Yes Yes Yes -Correct Side, Site, Position Yes Yes Yes -Correct Procedure Yes Yes Yes -Procedure Performed Yes Yes Yes -Type of Procedure Debridement Debridement Debridement -Clinical Debridement Subcutaneous Subcutaneous Subcutaneous -Tissue Removed Subcutaneous Subcutaneous Subcutaneous -Post Debridement (cm) - Length 1.3 1.4 1.2 -Post Debridement (cm) - Width 0.9 0.9 0.6 -Post Debridement (cm) - Depth 0.3 0.3 0.3 -Total Square (Post) (cm) 1.17 1.26 0.72 -Area of Debridement (cm) - Length 1.3 1.4 1.2 -Area of Debridement (cm) - Width 0.9 0.9 0.6 -Total Square (Area) (cm) 1.17 1.26 0.72 -Tunneling No No No -Undermining/Tunneling No No No -Circular Undermining No No No -Wound/Ulcer Outcome Not Healed Not Healed -Ulcer Cleansing Rinsed/ Rinsed/ Rinsed/ Irrigated with Irrigated with Irrigated with Saline Saline Saline -Foul Odor after Cleansing No No No -Bioengineered Tissue No Yes Yes -Type of Bioengineered Tissue Epifix 18mm Epifix 18mm Disc Disc -Expiration Date 06/24/25 06/24/25 -Product Lot Number [id number] -Percent Used 100 100 -Lot number of Saline Used [id number] -Bleeding Controlled with Pressure Pressure Pressure -Offloading No No No -Treatment Response Procedure Procedure Procedure Tolerated Well Tolerated Well Tolerated Well -Debridement - Subq, 1st 20sq cm Yes No No -Apply Skin Sub - 1st 25 sq cm - Legs 1 1 -Epifix 18mm Disc 3 3 Pain Scale: 0-10 Numeric Is Patient Pain Free? Yes WC - Nurse 3 - General Ulcer D/C NN Start: 09/25/20 09:26 Freq: Status: Active Protocol: Activity Type Activity Date Activity User E-Sign Co-Sign Detail Recorded Client Recorded Date Recorded By Document 10/02/20 10:56 LEXUS [id number] 10/02/20 10:56 LEXUS 10/02/20 10:56 Wound Care Nurse 3 -Primary Dressing Covered/Secured with Dry Gauze, Secured with Tape Pain Scale: 0-10 Numeric Is Patient Pain Free? 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: CODE(S): L97.922 - Non-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 PLAN: Epifix #2 applied to the leg wound coved with veil land ster-strips and then Aquacel and gauze dressing Leave on for 1 week no showers (2) Blood thinned due to long-term anticoagulant use: CODE(S): Z79.01 - longterm (current) use of anticoagulants (3) Non-healing non-surgical wound: CODE(S): T14.8XXA - Other injury of unspecified body region, initial encounter (4) Traumatic ecchymosis of left lower leg: CODE(S): S80.12XA - Contusion of left lower leg, initial encounter QUALIFIERS: Encounter type: subsequent encounter Qualified Code(s): S80.12XD - Contusion of left lower leg, subsequent encounter (5) Peripheral vascular disease: CODE(S): I73.9 - Peripheral vascular disease, unspecified
[2020-10-16 09:34] VITALS: BP 136/66; PULSE 63; RESP 16; TEMP 36.4; BMI 26.1
--- NOTE | 2020-10-16 12:25 | PN.PCM_ITS ---
History of Present Illness Date of Service: 10/16/20 Chief Complaint: follow up L medial lower leg History of Wound: Last was hitching the trailer to back of his truck and and the odilia gave out and the trailer fell on his L medial lower leg . He pushed his leg down into the mud so he did not break it. A large ecchymotic area and open area that is covered with scab at this time has developed Subjective Subjective Patient has no complaints healing well Objective Data Objective Data Tolerating the epi fix is very well receiving his ninth almost healed ecchymotic area is clearing around wound still has some depth but no signs of infection or swelling. Vital Signs: Vital Signs Temp Pulse Resp BP 97.5 F L 63 16 136/66 H 10/16/20 09:34 10/16/20 09:34 10/16/20 09:34 10/16/20 09:34 Oxygen Delivery Method Room Air Weight: 157 lb Body Mass Index (BMI) 26.1 Physical Exam Const oriented x3 General Appearance: cooperative Exam Limitations: no limitations HEENT normocephalic Head and Scalp: normal to inspection Face and Sinus: normal facial exam Nose: external nose normal General Ear: hearing grossly impaired External Ear: external ears normal Mouth: oral and palatal mucosa normal Eyes PERRL General Eye: normal appearance of both eyes Neck full ROM General: normal visual inspection Resp normal respiratory effort Effort and Inspection: able to speak in complete sentences Auscultation: clear to auscultation bilaterally Cardio regular rate and regular rhythm Palpation: normal PMI Rate: regular rate Rhythm: regular rhythm GI Auscultation: normoactive bowel sounds Palpation: soft and no hepatosplenomegaly external exam normal Back/Spine Cervical Spine: cervical ROM normal Thoracic Spine / Upper Back: normal to inspection Lumbar Spine / Lower Back: normal to inspection Extremity normal to inspection General Extremity: normal exam except as noted Skin no rashes or lesions noted Neuro oriented x3 Psych Appearance: grossly normal Speech: normal speech Thought Content: normal thought content Judgement: judgement good Debridement Note Debridement Note Post-Debridement Measurements and Additional Note: Post-Debridement Measurements/Treatment JOS - Nurse 1 - General Ulcer Assessment Start: 09/25/20 09:26 Freq: Status: Active Protocol: DAVEY Activity Type Activity Date Activity User E-Sign Co-Sign Detail Recorded Client Recorded Date Recorded By Document 09/25/20 09:26 KR [id number] 09/25/20 09:28 KR Document 10/02/20 10:23 ML [id number] 10/02/20 10:32 ML Document 10/09/20 10:18 BMF [id number] 10/09/20 10:25 BMF Document 10/16/20 09:34 BMF [id number] 10/16/20 09:42 BMF 09/25/20 10/02/20 10/09/20 09:26 10:23 10:18 WC - Today's Visit Information Type of service Follow-up Visit Follow-up Visit Follow-up Visit (Physician/OPERATIONS REPRESENTATIVE (Physician/OPERATIONS REPRESENTATIVE (Physician/OPERATIONS REPRESENTATIVE ) ) ) Arrival Mode Ambulatory Ambulatory Ambulatory Transfer Assistance None Patient Identification Verified (Name & Yes Yes Yes ) Patient Requires Transmission-Based No No Precautions Safety Precautions NA Height and Weight Body Mass Index (BMI) 26.1 26.1 26.1 BMI Classification Overweight Overweight Overweight Vital Signs Temperature (97.8 F-99.1 F) 98.3 F 98.0 F 98.4 F Temperature Source Temporal Temporal Temporal Pulse Rate (60-100) 91 83 93 Pulse Location Monitor Monitor Monitor Respiratory Rate (12-18) 16 16 Respiratory rate source Observation Observation Oxygen Delivery Method Room Air Blood Pressure (90/60-120/80) 121/73 H 80/57 L 110/60 Blood Pressure Mean (mm Hg) 89 64 76 Source Monitor Monitor Monitor Position Sitting Sitting Sitting Blood Pressure Location Right Arm Left Arm Right Arm History Since Last Visit- (Skip if this is Patient's initial visit) Have you changed medications since your No No No last visit? Any new allergies or adverse reactions No No No Had a fall/change in ADL's that may No No No increase risk of falls Signs or symptoms of abuse and/or No No No neglect since last visit Have you been in the hospital since your No No No last visit? Has dressing in place as prescribed Yes Yes Yes Has compression in place as prescribed N/A N/A N/A Has offloadiing in place as prescribed N/A N/A N/A Experienced any changes in pain level or No No No management Left Footwear Regular Shoe Regular Shoe Regular Shoe Right Footwear Regular Shoe Regular Shoe Regular Shoe Pain Scale: 0-10 Numeric Is Patient Pain Free? Yes Yes Yes 10/16/20 09:34 - Today's Visit Information Type of service Follow-up Visit (Physician/OPERATIONS REPRESENTATIVE ) Arrival Mode Ambulatory Transfer Assistance None Patient Identification Verified (Name & Yes ) Patient Requires Transmission-Based No Precautions Safety Precautions Height and Weight Body Mass Index (BMI) 26.1 BMI Classification Overweight Vital Signs Temperature (97.8 F-99.1 F) 97.5 F L Temperature Source Temporal Pulse Rate (60-100) 63 Pulse Location Monitor Respiratory Rate (12-18) 16 Respiratory rate source Observation Oxygen Delivery Method Room Air Blood Pressure (90/60-120/80) 136/66 H Blood Pressure Mean (mm Hg) 89 Source Monitor Position Sitting Blood Pressure Location Left Arm History Since Last Visit- (Skip if this is Patient's initial visit) Have you changed medications since your No last visit? Any new allergies or adverse reactions No Had a fall/change in ADL's that may No increase risk of falls Signs or symptoms of abuse and/or No neglect since last visit Have you been in the hospital since your No last visit? Has dressing in place as prescribed Yes Has compression in place as prescribed Yes Has offloadiing in place as prescribed N/A Experienced any changes in pain level or No management Left Footwear Regular Shoe Right Footwear Regular Shoe Pain Scale: 0-10 Numeric Is Patient Pain Free? Yes - Nurse 1 - General Ulcer Measurement Start: 09/25/20 09:26 Freq: Status: Active Protocol: Activity Type Activity Date Activity User E-Sign Co-Sign Detail Recorded Client Recorded Date Recorded By Document 09/25/20 09:26 KR [id number] 09/25/20 09:28 KR Document 10/02/20 10:23 ML [id number] 10/02/20 10:32 ML Document 10/09/20 10:18 BMF [id number] 10/09/20 10:25 BMF Document 10/16/20 09:34 BMF [id number] 10/16/20 09:42 BM 09/25/20 10/02/20 10/09/20 09:26 10:23 10:18 Wound Center Nurse 1 #1- L MEDIAL LE (TRAUMA) -Combined with other wound No -Current Size (cm) - Length 1.6 1 1.1 -Current Size (cm) - Width 1.2 1 0.7 -Current Size (cm) - Depth 0.2 0.3 0.2 -Total Square Cm 1.92 1 0.77 -Photo Taken No -Epithelialization Small 1-33% -Tunneling No -Undermining/Tunneling No -Circular Undermining No -Exudate Amt Small Medium Medium -Exudate Type Serosanguineous Serosanguineous Serosanguineous -Wound Margin Distinct, Distinct, Distinct, Outline Outline Outline Attached Attached Attached -Granulation Amt Medium (34-66%) Large (67-100%) -Granulation Quality Red Red Red -Slough/Fibrin Yes Yes -Necrosis Amt Medium (34-66%) Medium (34-66%) Small (1-33%) -Necrotic Tissue Type Adherent Slough Adherent Slough Adherent Slough -Texture (Elham-wound Skin Appearance) Assessed, No Abnormality, Assessed, Scarring Callus Scarring -Moisture (Elham-wound Skin Appearance) No Abnormality, Assessed Assessed -Color (Elham-wound Skin Appearance) No Abnormality, No Abnormality Assessed Assessed -Temperature (Elham-wound Skin No Abnormality No Abnormality No Abnormality Appearance) (Pt Warm) (Pt Warm) (Pt Warm) -Tenderness on Palpation (Elham-wound No No Skin Appearance) -Ulcer Cleansing Rinsed/ Rinsed/ SOAPY WATER Irrigated with Irrigated with Saline Saline -Foul Odor after Cleansing No Yes, Due to Product Use -Anesthetic Used 4% Lidocaine 4% Lidocaine 5% Lidocaine Solution Solution Gel Lower Limb Edema Present Left Calf (cm) Left Ankle (cm) 10/16/20 09:34 Wound Center Nurse 1 #1- L MEDIAL LE (TRAUMA) -Combined with other wound No -Current Size (cm) - Length 1.5 -Current Size (cm) - Width 0.3 -Current Size (cm) - Depth 0.2 -Total Square Cm 0.45 -Photo Taken No -Epithelialization Small 1-33% -Tunneling No -Undermining/Tunneling No -Circular Undermining No -Exudate Amt Medium -Exudate Type Serosanguineous -Wound Margin Distinct, Outline Attached -Granulation Amt Large (67-100%) -Granulation Quality Red -Slough/Fibrin Yes -Necrosis Amt Small (1-33%) -Necrotic Tissue Type Adherent Slough -Texture (Elham-wound Skin Appearance) Assessed, Scarring -Moisture (Elham-wound Skin Appearance) Assessed,Dry/ Scaly -Color (Elham-wound Skin Appearance) Assessed -Temperature (Elham-wound Skin No Abnormality Appearance) (Pt Warm) -Tenderness on Palpation (Elham-wound Yes Skin Appearance) -Ulcer Cleansing soapy water -Foul Odor after Cleansing No -Anesthetic Used 4% Lidocaine Solution Lower Limb Edema Present Yes Left Calf (cm) 33.7 Left Ankle (cm) 22.4 WC - Nurse 2 - General Ulcer CM Notes Start: 09/25/20 09:26 Freq: Status: Active Protocol: Activity Type Activity Date Activity User E-Sign Co-Sign Detail Recorded Client Recorded Date Recorded By Document 09/25/20 09:37 MW [id number] 09/25/20 09:39 MW Document 10/02/20 10:48 MW [id number] 10/02/20 10:52 MW Document 10/09/20 10:41 MW [id number] 10/09/20 10:46 MW Document 10/16/20 10:11 MW [id number] 10/16/20 10:15 MW 09/25/20 10/02/20 10/09/20 09:37 10:48 10:41 Wound Center Nurse 2 #1- L MEDIAL LE (TRAUMA) -Time 09:38 10:49 10:41 -Correct Patient Yes Yes Yes -Correct Side, Site, Position Yes Yes Yes -Correct Procedure Yes Yes Yes -Procedure Performed Yes Yes Yes -Type of Procedure Debridement Debridement Debridement -Clinical Debridement Subcutaneous Subcutaneous Subcutaneous -Tissue Removed Subcutaneous Subcutaneous Subcutaneous -Post Debridement (cm) - Length 1.3 1.4 1.2 -Post Debridement (cm) - Width 0.9 0.9 0.6 -Post Debridement (cm) - Depth 0.3 0.3 0.3 -Total Square (Post) (cm) 1.17 1.26 0.72 -Area of Debridement (cm) - Length 1.3 1.4 1.2 -Area of Debridement (cm) - Width 0.9 0.9 0.6 -Total Square (Area) (cm) 1.17 1.26 0.72 -Tunneling No No No -Undermining/Tunneling No No No -Circular Undermining No No No -Wound/Ulcer Outcome Not Healed Not Healed -Ulcer Cleansing Rinsed/ Rinsed/ Rinsed/ Irrigated with Irrigated with Irrigated with Saline Saline Saline -Foul Odor after Cleansing No No No -Bioengineered Tissue No Yes Yes -Type of Bioengineered Tissue Epifix 18mm Epifix 18mm Disc Disc -Expiration Date 06/24/25 06/24/25 -Product Lot Number [id number] -Percent Used 100 100 -Lot number of Saline Used [id number] -Bleeding Controlled with Pressure Pressure Pressure -Offloading No No No -Treatment Response Procedure Procedure Procedure Tolerated Well Tolerated Well Tolerated Well -Debridement - Subq, 1st 20sq cm Yes No No -Apply Skin Sub - 1st 25 sq cm - Legs 1 1 -Epifix 18mm Disc 3 3 Pain Scale: 0-10 Numeric Is Patient Pain Free? Yes 10/16/20 10:11 Wound Center Nurse 2 #1- L SATHYA LE (TRAUMA) -Time 10:12 -Correct Patient Yes -Correct Side, Site, Position Yes -Correct Procedure Yes -Procedure Performed Yes -Type of Procedure Debridement -Clinical Debridement Subcutaneous -Tissue Removed Subcutaneous -Post Debridement (cm) - Length 1.0 -Post Debridement (cm) - Width 0.5 -Post Debridement (cm) - Depth 0.2 -Total Square (Post) (cm) 0.50 -Area of Debridement (cm) - Length 1.0 -Area of Debridement (cm) - Width 0.5 -Total Square (Area) (cm) 0.50 -Tunneling No -Undermining/Tunneling No -Circular Undermining No -Wound/Ulcer Outcome Not Healed -Ulcer Cleansing Rinsed/ Irrigated with Saline -Foul Odor after Cleansing No -Bioengineered Tissue Yes -Type of Bioengineered Tissue Epifix 18mm Disc -Expiration Date 07/25/25 -Product Lot Number [id number] -Percent Used 100 -Lot number of Saline Used [id number] -Bleeding Controlled with Pressure -Offloading No -Treatment Response Procedure Tolerated Well -Debridement - Subq, 1st 20sq cm No -Apply Skin Sub - 1st 25 sq cm - Legs 1 -Epifix 18mm Disc 3 Pain Scale: 0-10 Numeric Is Patient Pain Free? Yes WC - Nurse 3 - General Ulcer D/C NN Start: 09/25/20 09:26 Freq: Status: Active Protocol: Activity Type Activity Date Activity User E-Sign Co-Sign Detail Recorded Client Recorded Date Recorded By Document 10/02/20 10:56 KR [id number] 10/02/20 10:56 KR Document 10/16/20 10:22 KR [id number] 10/16/20 10:22 KR 10/02/20 10/16/20 10:56 10:22 Wound Care Nurse 3 #1- L MEDIAL LE (TRAUMA) -Primary Dressing Covered/Secured with Dry Gauze, Dry Gauze, Secured with Secured with Tape Tape Pain Scale: 0-10 Numeric Is Patient Pain Free? Yes Yes WC - Visit Discharge Discharge Condition Stable Stable Ambulatory Status Ambulatory Ambulatory Transportation Private Auto Private Auto Wound debrided: Left medial lower leg Laterality: Left Type of Debridement: Excisional debridement Anesthesia Used: 5% Lidocaine Gel Depth: Down to and including healthy tissue and in the subcutaneous layer Percentage of wound debrided: 100 Instrument Used: 3mm curette Tissue Removed: Fibrin Severity: Limited To Skin Breakdown Amount of bleeding with debridement: Mild Bleeding Controlled with: Compression and gauze Patient tolerated procedure: Patient tolerated procedure well Assessment/Plan Assessment/Plan (1) 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: CODE(S): L97.922 - Non-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 PLAN: Epifix #3 applied to the leg wound coved with veil land ster-strips and then Aquacel and gauze dressing Leave on for 1 week no showers (2) Blood thinned due to long-term anticoagulant use: CODE(S): Z79.01 - FPC (current) use of anticoagulants (3) Non-healing non-surgical wound: CODE(S): T14.8XXA - Other injury of unspecified body region, initial encounter (4) Traumatic ecchymosis of left lower leg: CODE(S): S80.12XA - Contusion of left lower leg, initial encounter QUALIFIERS: Encounter type: subsequent encounter Qualified Code(s): S80.12XD - Contusion of left lower leg, subsequent encounter
[2020-10-23 11:28] VITALS: BP 120/64; PULSE 101; TEMP 36.1; BMI 26.1
--- NOTE | 2020-10-23 12:53 | PN.PCM_ITS ---
History of Present Illness Date of Service: 10/23/20 Chief Complaint: follow up L medial lower leg History of Wound: Last was hitching the trailer to back of his truck and and the odilia gave out and the trailer fell on his L medial lower leg . He pushed his leg down into the mud so he did not break it. A large ecchymotic area and open area that is covered with scab at this time has developed Progress of Wound: After epi fix #3 he is so close to healing he has like a.left heel. We will only use Promogran and hold on the epi fix this. Patient should be disc charged by next week Subjective Subjective No concerns Objective Data Objective Data Last week there was a slight divot and that is all filled in there is like a pinhole of an open area that I do not feel comfortable with just leaving we will continue to finish him off with Promogran. Vital Signs: Vital Signs Temp Pulse Resp BP 97.0 F L 101 H 16 120/64 10/23/20 11:28 10/23/20 11:28 10/16/20 09:34 10/23/20 11:28 Oxygen Delivery Method Room Air Weight: 157 lb Body Mass Index (BMI) 26.1 Physical Exam Const oriented x3 General Appearance: cooperative Exam Limitations: no limitations Resp normal respiratory effort Effort and Inspection: able to speak in complete sentences Auscultation: clear to auscultation bilaterally Cardio regular rate and regular rhythm Palpation: normal PMI Rate: regular rate Rhythm: regular rhythm Extremity normal to inspection General Extremity: normal exam except as noted Skin no rashes or lesions noted Neuro oriented x3 Psych Appearance: grossly normal Speech: normal speech Thought Content: normal thought content Judgement: judgement good Debridement Note Debridement Note Post-Debridement Measurements and Additional Note: Post-Debridement Measurements/Treatment JOS - Nurse 1 - General Ulcer Assessment Start: 09/25/20 09:26 Freq: Status: Active Protocol: DAVEY Activity Type Activity Date Activity User E-Sign Co-Sign Detail Recorded Client Recorded Date Recorded By Document 09/25/20 09:26 KR [id number] 09/25/20 09:28 KR Document 10/02/20 10:23 ML [id number] 10/02/20 10:32 ML Document 10/09/20 10:18 BMF [id number] 10/09/20 10:25 BMF Document 10/16/20 09:34 BMF [id number] 10/16/20 09:42 BMF Document 10/23/20 11:28 KR [id number] 10/23/20 11:29 KR 09/25/20 10/02/20 10/09/20 09:26 10:23 10:18 WC - Today's Visit Information Type of service Follow-up Visit Follow-up Visit Follow-up Visit (Physician/BILINGUAL INSTRUCTOR (Physician/BILINGUAL INSTRUCTOR (Physician/BILINGUAL INSTRUCTOR ) ) ) Arrival Mode Ambulatory Ambulatory Ambulatory Transfer Assistance None Patient Identification Verified (Name & Yes Yes Yes ) Patient Requires Transmission-Based No No Precautions Safety Precautions NA Height and Weight Body Mass Index (BMI) 26.1 26.1 26.1 BMI Classification Overweight Overweight Overweight Vital Signs Temperature (97.8 F-99.1 F) 98.3 F 98.0 F 98.4 F Temperature Source Temporal Temporal Temporal Pulse Rate (60-100) 91 83 93 Pulse Location Monitor Monitor Monitor Respiratory Rate (12-18) 16 16 Respiratory rate source Observation Observation Oxygen Delivery Method Room Air Blood Pressure (90/60-120/80) 121/73 H 80/57 L 110/60 Blood Pressure Mean (mm Hg) 89 64 76 Source Monitor Monitor Monitor Position Sitting Sitting Sitting Blood Pressure Location Right Arm Left Arm Right Arm History Since Last Visit- (Skip if this is Patient's initial visit) Have you changed medications since your No No No last visit? Any new allergies or adverse reactions No No No Had a fall/change in ADL's that may No No No increase risk of falls Signs or symptoms of abuse and/or No No No neglect since last visit Have you been in the hospital since your No No No last visit? Has dressing in place as prescribed Yes Yes Yes Has compression in place as prescribed N/A N/A N/A Has offloadiing in place as prescribed N/A N/A N/A Experienced any changes in pain level or No No No management Left Footwear Regular Shoe Regular Shoe Regular Shoe Right Footwear Regular Shoe Regular Shoe Regular Shoe Pain Scale: 0-10 Numeric Is Patient Pain Free? Yes Yes Yes 10/16/20 10/23/20 09:34 11:28 WC - Today's Visit Information Type of service Follow-up Visit Follow-up Visit (Physician/BILINGUAL INSTRUCTOR (Physician/BILINGUAL INSTRUCTOR ) ) Arrival Mode Ambulatory Ambulatory Transfer Assistance None Patient Identification Verified (Name & Yes Yes ) Patient Requires Transmission-Based No Precautions Safety Precautions Height and Weight Body Mass Index (BMI) 26.1 26.1 BMI Classification Overweight Overweight Vital Signs Temperature (97.8 F-99.1 F) 97.5 F L 97.0 F L Temperature Source Temporal Temporal Pulse Rate (60-100) 63 101 H Pulse Location Monitor Monitor Respiratory Rate (12-18) 16 Respiratory rate source Observation Oxygen Delivery Method Room Air Blood Pressure (90/60-120/80) 136/66 H 120/64 Blood Pressure Mean (mm Hg) 89 82 Source Monitor Monitor Position Sitting Semi-Fowlers Blood Pressure Location Left Arm Left Arm History Since Last Visit- (Skip if this is Patient's initial visit) Have you changed medications since your No No last visit? Any new allergies or adverse reactions No No Had a fall/change in ADL's that may No No increase risk of falls Signs or symptoms of abuse and/or No No neglect since last visit Have you been in the hospital since your No No last visit? Has dressing in place as prescribed Yes Yes Has compression in place as prescribed Yes N/A Has offloadiing in place as prescribed N/A N/A Experienced any changes in pain level or No No management Left Footwear Regular Shoe Regular Shoe Right Footwear Regular Shoe Regular Shoe Pain Scale: 0-10 Numeric Is Patient Pain Free? Yes Yes WC - Nurse 1 - General Ulcer Measurement Start: 09/25/20 09:26 Freq: Status: Active Protocol: Activity Type Activity Date Activity User E-Sign Co-Sign Detail Recorded Client Recorded Date Recorded By Document 09/25/20 09:26 KR [id number] 09/25/20 09:28 KR Document 10/02/20 10:23 ML [id number] 10/02/20 10:32 ML Document 10/09/20 10:18 BMF [id number] 10/09/20 10:25 BMF Document 10/16/20 09:34 BMF [id number] 10/16/20 09:42 BMF Document 10/23/20 11:28 KR [id number] 10/23/20 11:29 KR 09/25/20 10/02/20 10/09/20 09:26 10:23 10:18 Wound Center Nurse 1 #1- L MEDIAL LE (TRAUMA) -Combined with other wound No -Current Size (cm) - Length 1.6 1 1.1 -Current Size (cm) - Width 1.2 1 0.7 -Current Size (cm) - Depth 0.2 0.3 0.2 -Total Square Cm 1.92 1 0.77 -Photo Taken No -Epithelialization Small 1-33% -Tunneling No -Undermining/Tunneling No -Circular Undermining No -Exudate Amt Small Medium Medium -Exudate Type Serosanguineous Serosanguineous Serosanguineous -Wound Margin Distinct, Distinct, Distinct, Outline Outline Outline Attached Attached Attached -Granulation Amt Medium (34-66%) Large (67-100%) -Granulation Quality Red Red Red -Slough/Fibrin Yes Yes -Necrosis Amt Medium (34-66%) Medium (34-66%) Small (1-33%) -Necrotic Tissue Type Adherent Slough Adherent Slough Adherent Slough -Texture (Elham-wound Skin Appearance) Assessed, No Abnormality, Assessed, Scarring Callus Scarring -Moisture (Elham-wound Skin Appearance) No Abnormality, Assessed Assessed -Color (Elham-wound Skin Appearance) No Abnormality, No Abnormality Assessed Assessed -Temperature (Elham-wound Skin No Abnormality No Abnormality No Abnormality Appearance) (Pt Warm) (Pt Warm) (Pt Warm) -Tenderness on Palpation (Elham-wound No No Skin Appearance) -Ulcer Cleansing Rinsed/ Rinsed/ SOAPY WATER Irrigated with Irrigated with Saline Saline -Foul Odor after Cleansing No Yes, Due to Product Use -Anesthetic Used 4% Lidocaine 4% Lidocaine 5% Lidocaine Solution Solution Gel Lower Limb Edema Present Left Calf (cm) Left Ankle (cm) 10/16/20 10/23/20 09:34 11:28 Wound Center Nurse 1 #1- L MEDIAL LE (TRAUMA) -Combined with other wound No -Current Size (cm) - Length 1.5 1 -Current Size (cm) - Width 0.3 0.5 -Current Size (cm) - Depth 0.2 0.2 -Total Square Cm 0.45 0.5 -Photo Taken No -Epithelialization Small 1-33% -Tunneling No -Undermining/Tunneling No -Circular Undermining No -Exudate Amt Medium Small -Exudate Type Serosanguineous Serosanguineous -Wound Margin Distinct, Distinct, Outline Outline Attached Attached -Granulation Amt Large (67-100%) Medium (34-66%) -Granulation Quality Red Red -Slough/Fibrin Yes -Necrosis Amt Small (1-33%) Medium (34-66%) -Necrotic Tissue Type Adherent Slough Adherent Slough -Texture (Elham-wound Skin Appearance) Assessed, Assessed, Scarring Scarring -Moisture (Elham-wound Skin Appearance) Assessed,Dry/ No Abnormality, Scaly Assessed -Color (Elham-wound Skin Appearance) Assessed No Abnormality, Assessed -Temperature (Elham-wound Skin No Abnormality No Abnormality Appearance) (Pt Warm) (Pt Warm) -Tenderness on Palpation (Elham-wound Yes No Skin Appearance) -Ulcer Cleansing soapy water Rinsed/ Irrigated with Saline -Foul Odor after Cleansing No No -Anesthetic Used 4% Lidocaine 4% Lidocaine Solution Solution Lower Limb Edema Present Yes Left Calf (cm) 33.7 Left Ankle (cm) 22.4 WC - Nurse 2 - General Ulcer CM Notes Start: 09/25/20 09:26 Freq: Status: Active Protocol: Activity Type Activity Date Activity User E-Sign Co-Sign Detail Recorded Client Recorded Date Recorded By Document 09/25/20 09:37 MW [id number] 09/25/20 09:39 MW Document 10/02/20 10:48 MW [id number] 10/02/20 10:52 MW Document 10/09/20 10:41 MW [id number] 10/09/20 10:46 MW Document 10/16/20 10:11 MW [id number] 10/16/20 10:15 MW 09/25/20 10/02/20 10/09/20 09:37 10:48 10:41 Wound Center Nurse 2 #1- L MEDIAL LE (TRAUMA) -Time 09:38 10:49 10:41 -Correct Patient Yes Yes Yes -Correct Side, Site, Position Yes Yes Yes -Correct Procedure Yes Yes Yes -Procedure Performed Yes Yes Yes -Type of Procedure Debridement Debridement Debridement -Clinical Debridement Subcutaneous Subcutaneous Subcutaneous -Tissue Removed Subcutaneous Subcutaneous Subcutaneous -Post Debridement (cm) - Length 1.3 1.4 1.2 -Post Debridement (cm) - Width 0.9 0.9 0.6 -Post Debridement (cm) - Depth 0.3 0.3 0.3 -Total Square (Post) (cm) 1.17 1.26 0.72 -Area of Debridement (cm) - Length 1.3 1.4 1.2 -Area of Debridement (cm) - Width 0.9 0.9 0.6 -Total Square (Area) (cm) 1.17 1.26 0.72 -Tunneling No No No -Undermining/Tunneling No No No -Circular Undermining No No No -Wound/Ulcer Outcome Not Healed Not Healed -Ulcer Cleansing Rinsed/ Rinsed/ Rinsed/ Irrigated with Irrigated with Irrigated with Saline Saline Saline -Foul Odor after Cleansing No No No -Bioengineered Tissue No Yes Yes -Type of Bioengineered Tissue Epifix 18mm Epifix 18mm Disc Disc -Expiration Date 06/24/25 06/24/25 -Product Lot Number [id number] -Percent Used 100 100 -Lot number of Saline Used [id number] -Bleeding Controlled with Pressure Pressure Pressure -Offloading No No No -Treatment Response Procedure Procedure Procedure Tolerated Well Tolerated Well Tolerated Well -Debridement - Subq, 1st 20sq cm Yes No No -Apply Skin Sub - 1st 25 sq cm - Legs 1 1 -Epifix 18mm Disc 3 3 Pain Scale: 0-10 Numeric Is Patient Pain Free? Yes 10/16/20 10:11 Wound Center Nurse 2 #1- L MEDIAL LE (TRAUMA) -Time 10:12 -Correct Patient Yes -Correct Side, Site, Position Yes -Correct Procedure Yes -Procedure Performed Yes -Type of Procedure Debridement -Clinical Debridement Subcutaneous -Tissue Removed Subcutaneous -Post Debridement (cm) - Length 1.0 -Post Debridement (cm) - Width 0.5 -Post Debridement (cm) - Depth 0.2 -Total Square (Post) (cm) 0.50 -Area of Debridement (cm) - Length 1.0 -Area of Debridement (cm) - Width 0.5 -Total Square (Area) (cm) 0.50 -Tunneling No -Undermining/Tunneling No -Circular Undermining No -Wound/Ulcer Outcome Not Healed -Ulcer Cleansing Rinsed/ Irrigated with Saline -Foul Odor after Cleansing No -Bioengineered Tissue Yes -Type of Bioengineered Tissue Epifix 18mm Disc -Expiration Date 07/25/25 -Product Lot Number [id number] -Percent Used 100 -Lot number of Saline Used [id number] -Bleeding Controlled with Pressure -Offloading No -Treatment Response Procedure Tolerated Well -Debridement - Subq, 1st 20sq cm No -Apply Skin Sub - 1st 25 sq cm - Legs 1 -Epifix 18mm Disc 3 Pain Scale: 0-10 Numeric Is Patient Pain Free? Yes - Nurse 3 - General Ulcer D/C NN Start: 09/25/20 09:26 Freq: Status: Active Protocol: Activity Type Activity Date Activity User E-Sign Co-Sign Detail Recorded Client Recorded Date Recorded By Document 10/02/20 10:56 LEXUS [id number] 10/02/20 10:56 KR Document 10/16/20 10:22 LEXUS [id number] 10/16/20 10:22 KR 10/02/20 10/16/20 10:56 10:22 Wound Care Nurse 3 #1- L MEDIAL LE (TRAUMA) -Primary Dressing Covered/Secured with Dry Gauze, Dry Gauze, Secured with Secured with Tape Tape Pain Scale: 0-10 Numeric Is Patient Pain Free? Yes Yes - Visit Discharge Discharge Condition Stable Stable Ambulatory Status Ambulatory Ambulatory Transportation Private Auto Private Auto Wound debrided: Left medial lower extremity Laterality: Left Type of Debridement: Excisional debridement Anesthesia Used: 5% Lidocaine Gel Depth: Down to and including healthy tissue Percentage of wound debrided: 100 Instrument Used: 3mm curette Tissue Removed: Fibrin Severity: Limited To Skin Breakdown Amount of bleeding with debridement: None Bleeding Controlled with: Pressure Patient tolerated procedure: Patient tolerated procedure well Assessment/Plan Assessment/Plan (1) 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: CODE(S): L97.922 - Non-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 (2) Blood thinned due to long-term anticoagulant use: CODE(S): Z79.01 - medical terminologist (current) use of anticoagulants (3) Non-healing non-surgical wound: CODE(S): T14.8XXA - Other injury of unspecified body region, initial encounter PLAN: Wash leg with antibacterial soap and apply Promogran to wound base moistened cover with Adaptic and gauze dressing daily Follow-up in 1 week (4) Traumatic ecchymosis of left lower leg: CODE(S): S80.12XA - Contusion of left lower leg, initial encounter QUALIFIERS: Encounter type: subsequent encounter Qualified Code(s): S80.12XD - Contusion of left lower leg, subsequent encounter
== END 2020-10-23 23:59 ==
LOC: WC 11:15
PROVIDERS: PCP Family Medicine Geriatric Medicine; Visit Provider Nurse Practitioner
DX: S80.12XA Contusion of left lower leg, initial encounter (principal); W20.8XXA Other cause of strike by thrown, projected or falling object, initial encounter; Y93.89 Activity, other specified; Y92.9 Unspecified place or not applicable; Y99.9 Unspecified external cause status; T14.8XXA Other injury of unspecified body region, initial encounter; L97.822 Non-pressure chronic ulcer of other part of left lower leg with fat layer exposed; I73.9 Peripheral vascular disease, unspecified; L97.821 Non-pressure chronic ulcer of other part of left lower leg limited to breakdown of skin
CPT/HCPCS: 11042; 15271; Q4186

== ENCOUNTER 2020-10-30 11:15 | Outpatient (RCR) | payer MEDICARE, SELFPAY ==
[2020-10-24 00:28] VITALS: BP 120/64; PULSE 101; RESP 16; TEMP 36.1
[2020-10-30 11:26] VITALS: BP 112/54; PULSE 65; RESP 18; TEMP 37; BMI 26.1
--- NOTE | 2020-10-30 11:54 | PN.PCM_ITS ---
History of Present Illness Date of Service: 10/30/20 Chief Complaint: follow up L medial lower leg History of Wound: Last was hitching the trailer to back of his truck and and the odilia gave out and the trailer fell on his L medial lower leg . He pushed his leg down into the mud so he did not break it. A large ecchymotic area and open area that is covered with scab at this time has developed Progress of Wound: The wound is healed today patient will be discharged from the wound center Subjective Subjective No concerns noted Objective Data Objective Data Skin well approximated with new skin. Vital Signs: Vital Signs Temp Pulse Resp BP 98.6 F 65 18 112/54 L 10/30/20 11:26 10/30/20 11:26 10/30/20 11:26 10/30/20 11:26 Weight: 157 lb Body Mass Index (BMI) 26.1 Physical Exam Const oriented x3 General Appearance: cooperative Exam Limitations: no limitations Resp normal respiratory effort Effort and Inspection: able to speak in complete sentences Auscultation: clear to auscultation bilaterally Cardio regular rate and regular rhythm Palpation: normal PMI Rate: regular rate Rhythm: regular rhythm Extremity normal to inspection General Extremity: normal exam except as noted Skin no rashes or lesions noted Neuro oriented x3 Psych Appearance: grossly normal Speech: normal speech Thought Content: normal thought content Judgement: judgement good Debridement Note Debridement Note Post-Debridement Measurements and Additional Note: Post-Debridement Measurements/Treatment - Nurse 1 - General Ulcer Assessment Start: 10/30/20 11:26 Freq: Status: Active Protocol: JOS.[email or web address] Activity Type Activity Date Activity User E-Sign Co-Sign Detail Recorded Client Recorded Date Recorded By Document 10/30/20 11:26 MINERVA [id number] 10/30/20 11:32 MINERVA 10/30/20 11:26 - Today's Visit Information Type of service Follow-up Visit (Physician/PSYCHOLOGY TECHNICIAN ) Arrival Mode Ambulatory Transfer Assistance None Patient Identification Verified (Name & Yes ) Patient Requires Transmission-Based No Precautions Safety Precautions NA Height and Weight Body Mass Index (BMI) 26.1 BMI Classification Overweight Vital Signs Temperature (97.8 F-99.1 F) 98.6 F Temperature Source Temporal Pulse Rate (60-100) 65 Respiratory Rate (12-18) 18 Blood Pressure (90/60-120/80) 112/54 L Blood Pressure Mean (mm Hg) 73 History Since Last Visit- (Skip if this is Patient's initial visit) Have you changed medications since your No last visit? Any new allergies or adverse reactions No Had a fall/change in ADL's that may No increase risk of falls Signs or symptoms of abuse and/or No neglect since last visit Have you been in the hospital since your No last visit? Has dressing in place as prescribed Yes Has compression in place as prescribed N/A Has offloadiing in place as prescribed N/A Experienced any changes in pain level or No management Pain Scale: 0-10 Numeric Is Patient Pain Free? Yes - Nurse 1 - General Ulcer Measurement Start: 10/30/20 11:26 Freq: Status: Active Protocol: Activity Type Activity Date Activity User E-Sign Co-Sign Detail Recorded Client Recorded Date Recorded By Document 10/30/20 11:26 [address] [id number] 10/30/20 11:32 PL 10/30/20 11:26 Wound Center Nurse 1 #1- L MEDIAL LE (TRAUMA) -Combined with other wound No -Current Size (cm) - Length 0.5 -Current Size (cm) - Width 0.3 -Current Size (cm) - Depth 0.1 -Total Square Cm 0.15 -Photo Taken No -Epithelialization None Present -Tunneling No -Undermining/Tunneling No -Circular Undermining No -Exudate Amt Medium -Exudate Type Serosanguineous -Granulation Amt Medium (34-66%) -Granulation Quality [place] -Slough/Fibrin Yes -Necrosis Amt Medium (34-66%) -Necrotic Tissue Type Adherent Slough -Texture (Elham-wound Skin Appearance) No Abnormality -Moisture (Elham-wound Skin Appearance) No Abnormality -Color (Elham-wound Skin Appearance) No Abnormality -Temperature (Elham-wound Skin No Abnormality Appearance) (Pt Warm) -Ulcer Cleansing Rinsed/ Irrigated with Saline -Foul Odor after Cleansing No -Anesthetic Used 5% Lidocaine Gel - Nurse 2 - General Ulcer CM Notes Start: 10/30/20 11:26 Freq: Status: Active Protocol: Activity Type Activity Date Activity User E-Sign Co-Sign Detail Recorded Client Recorded Date Recorded By Document 10/30/20 11:44 MW [id number] 10/30/20 11:45 MW 10/30/20 11:44 Wound Center Nurse 2 -Time 11:44 -Correct Patient Yes -Correct Side, Site, Position Yes -Correct Procedure Yes -Procedure Performed No -Post Debridement (cm) - Length 0 -Post Debridement (cm) - Width 0 -Post Debridement (cm) - Depth 0 -Total Square (Post) (cm) 0 -Wound/Ulcer Outcome Healed- Epithelialized Pain Scale: 0-10 Numeric Is Patient Pain Free? 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
== END 2020-10-30 12:00 | disposition home or self-care (01) ==
LOC: WC 11:15
PROVIDERS: PCP Family Medicine Geriatric Medicine; Visit Provider Nurse Practitioner
DX: Z09 Encounter for follow-up examination after completed treatment for conditions other than malignant neoplasm (principal)
CPT/HCPCS: 99213; G0463

== ENCOUNTER 2020-11-12 10:29 | Outpatient (RCR) | payer MEDICARE, SELFPAY ==
[2020-07-10 19:17] VITALS: BMI 27.2
[2020-11-12 12:01] LABS: International Normalized Ratio 1.6; Prothrombin Time (Protime)PT. 18.2 SECONDS (11.7-14.9)
== END 2020-11-12 18:00 | disposition home or self-care (01) ==
LOC: LAB 10:29
PROVIDERS: Family Provider Family Medicine Geriatric Medicine; PCP Family Medicine Geriatric Medicine; Referring Provider Internal Medicine Cardiovascular Disease; Visit Provider Internal Medicine Cardiovascular Disease
DX: I48.20 Chronic atrial fibrillation, unspecified (principal); Z79.01 Long term (current) use of anticoagulants
CPT/HCPCS: 36415; 85610

== ENCOUNTER 2020-11-21 13:05 | Emergency (ER) | payer MEDICARE, SELFPAY ==
[2020-11-21 13:06] VITALS: BP 191/175; PULSE 120; RESP 18; TEMP 36.6; O2SAT 98; BMI 25.9
--- NOTE | 2020-11-21 16:24 | CT_ITS ---
INDICATION: Hematuria EXAMINATION: CT Abdomen And Pelvis W/O Contrast Injection TECHNIQUE: Helically acquired images were obtained of the abdomen and pelvis without the use of IV contrast. A radiation dose optimization technique was used for this scan. Oral contrast: None. COMPARISON: 07/10/2020 FINDINGS: Evaluation of the solid organs and vascular structures is limited without intravenous contrast. Visualized lung bases: Small bilateral pleural effusions left greater than right. There is interlobular septal thickening. 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 Liver: Unremarkable Gallbladder: Surgically absent. Spleen: Unremarkable Pancreas: Unremarkable Adrenal Glands: Unremarkable Kidneys: There is a 5 mm stone seen in the left pelvis. There are other bilateral nonobstructing renal calculi, largest on the right measuring 7 mm and in the lower pole while the largest on the left measures 4 mm and in the midpole. There is a 6.3 cm simple well-circumscribed water density cyst in the left midpole, stable since prior. Vasculature: Severe aortoiliac atherosclerotic disease. The infrarenal abdominal aorta is ectatic measuring 2.9 cm in diameter. GI Tract: Scattered diverticula throughout the colon without evidence of inflammation. The appendix is not visualized. Hiatal hernia. Lymphadenopathy: None Peritoneum: No ascites. Bladder: Unremarkable Reproductive organs: There are prostatic calcifications. Bones/Soft tissues: There are diffuse degenerative changes of the spine. Stable wedging of the T12 and L1 vertebrae. New age indeterminate compression deformity of L4. Evidence of prior umbilical hernia repair with mesh in place. CT/Abdomen/Pelvis without Cont IMPRESSION: 5 mm stone seen in the left renal pelvis without significant hydronephrosis. Other bilateral nonobstructing renal calculi as described above. New age indeterminate compression deformity of L4. Small bilateral pleural effusions left greater than right with interstitial edema. Infrarenal abdominal aorta is ectatic measuring 2.9 cm in diameter. Stable 6.3 cm simple cyst in the left renal mid pole. Electronically Signed: Mu Kendall MD at 17:36 EDT Tel , Service support ,
--- NOTE | 2020-11-21 16:25 | EDS_ITS ---
HPI History of Present Illness Chief Complaint: Complaint Narrative Narrative: 85-year-old male presenting with hematuria. He states that earlier in the week he had some thalia hematuria which is now darker. Patient states that his urine is brown. Patient states this morning he was nauseous but this resolved. He denies flank pain but states he had history of kidney stones without flank pain in the past. Patient does not have a urologist. Patient is anticoagulated on Coumadin for atrial fibrillation. Patient states that currently he feels well. 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 Non-healing non-surgical wound Old myocardial infarction Partial bowel obstruction Peripheral vascular disease Presence of combination internal cardiac defibrillator (ICD) and pacemaker Presence of stent in coronary artery (~02/21/03) Pure hypercholesterolemia Thyroid dysfunction Traumatic ecchymosis of left lower leg Home Medications omeprazole 20 mg PO DAILY 02/19/15 [History Last Taken 07/09/20] rosuvastatin 40 mg PO DAILY 02/19/15 [History Last Taken 07/09/20] tamsulosin 0.4 mg PO DAILY 07/29/17 [History Last Taken 07/09/20] mirabegron 50 mg tablet,extended release 24 hr 50 mg PO DAILY 07/15/18 [History Last Taken 07/10/20] nitroglycerin 0.4 mg sublingual tablet 0.4 mg SUBLINGUAL Q5M PRN #25 tab 04/23/20 [Rx Last Taken Unknown] finasteride 5 mg PO DAILY 07/10/20 [History Last Taken 07/10/20] levothyroxine 25 mcg PO DAILY 07/10/20 [History Last Taken 07/09/20] multivitamin 1 tablet PO DAILY 07/10/20 [History Last Taken 07/10/20] warfarin 4 mg PO SUTHFRSA 07/10/20 [History Last Taken 07/06/20] warfarin 6 mg PO MOTUWE 07/10/20 [History Last Taken 07/09/20] baclofen 10 mg PO DAILY 09/04/20 [History Last Taken Unknown] metoprolol succinate 50 mg PO DAILY 09/04/20 [History Last Taken Unknown] pantoprazole 40 mg PO DAILY 09/04/20 [History Last Taken Unknown] vitamin B complex 2 tab PO DAILY 09/04/20 [History Last Taken Unknown] ondansetron HCl [Zofran] 4 mg PO Q8H PRN #14 tab 11/21/20 [Rx Last Taken Unkno wn] Allergy/AdvReac Type Severity Reaction Status Date / Time No Known Allergies Allergy Verified 11/21/20 13:06 Family History Father Lung cancer CVA (cerebral vascular accident) Brother Sudden cardiac Surgical History Eyelid retraction unspecified eye, unspecified lid H/O hernia repair H/O myringoplasty History of two vessel coronary artery bypass graft (~1997) Hx of CABG Hx of cholecystectomy Presence of coronary angioplasty implant and graft (~02/21/03) ureteral stent Social History Smoking Status: Former smoker how long ago did patient quit smokin years alcohol intake: never substance use type: does not use caffeine: No ROS ROS ED Constitutional Constitutional ED: Denies fever(s), subjective or sweats Eyes Eyes: Denies blurry vision or change in vision ENT ENT ED: Denies rhinorrhea or sore throat Cardiovascular Cardiovascular: Denies chest pain, palpitations or racing heartbeat Respiratory/Chest Respiratory/Chest: Denies cough, dyspnea or sputum Gastrointestinal Gastrointestinal: Reports nausea; Denies abdominal pain, constipation, diarrhea or vomiting Genitourinary Genitourinary ED: Reports hematuria; Denies dysuria Musculoskeletal Musculoskeletal: Denies arthralgias or myalgias Integumentary Denies abscess or rash Neurologic Neurologic: Denies headache(s) or paresthesias Psychiatric Psychiatric: Denies anxiety or depression EXAM Physical Exam Const Vital Signs: 11/21/20 13:06 Temperature 97.8 F Temperature Source Temporal Pulse Rate 120 H Respiratory Rate 18 Blood Pressure 191/175 H Blood Pressure Mean 180 Pulse Ox 98 Oxygen Delivery Method Room Air Positive well nourished General Appearance ED: NAD; Negative for pallor HEENT Reports moist mucous membranes normocephalic and atraumatic Eyes PERRL Resp normal respiratory effort and clear to auscultation bilaterally Cardio regular rate and regular rhythm Back/Spine no CVA tenderness Neuro oriented x3 and CN's II-XII intact bilaterally Sensorium / Orientation: alert Psych mental status grossly normal Skin General Skin Exam: Negative for jaundice or pallor Lesions: no lesions Rashes: no rashes MDM MDM MDM Narrative Medical decision making narrative: Patient presenting with hematuria and history of kidney stones in which he states he is asymptomatic. Patient had urinalysis today which showed no infection but does show hematuria. CBC and BMP are unremarkable. INR is therapeutic at 3. CT of the pelvis without contrast shows a 5 cm distal ureteral stone without significant hydronephrosis. Patient does not have any nausea currently nor does he have pain at all. Patient will be sent home with prescription for Zofran to follow-up with Dr. Mo. CT of the abdomen pelvis does identify a new age-indeterminate L4 compression deformity however the patient does not have any back pain. It also identifies an Infrarenal abdominal aorta is ectatic measuring 2.9 cm in diameter and a stable 6.3 cm simple cyst in the left renal mid pole. I do not believe these correlate with patient's symptoms. Patient will be discharged home in stable condition. Impression: 1. Hematuria 2. 5 mm distal ureteral stone on the left 3. Infrarenal abdominal aorta 2.9 cm 4. Stable renal cyst 5. Age-indeterminate L4 compression deformity Lab Data Attestation: I reviewed the patient's lab results. Labs: Laboratory Results - last 24 hr 11/21/20 11/21/20 11/21/20 16:34 16:43 16:43 WBC 6.0 RBC 4.05 L Hgb 12.7 L Hct 39.2 L MCV 96.8 H MCH 31.4 MCHC 32.4 RDW Std Deviation 48.7 H RDW Coeff of Del 13.5 Plt Count 204 MPV 9.8 Immature Gran % (Auto) 0.200 Neut % (Auto) 70.2 H Lymph % (Auto) 17.4 L [place] % (Auto) 10.9 H Eos % (Auto) 0.8 Baso % (Auto) 0.5 Absolute Neuts (auto) 4.2 Absolute Lymphs (auto) 1.04 Nucleated RBC % 0 PT 30.3 H INR 3.0 Sodium Potassium Chloride Carbon Dioxide Anion Gap BUN Creatinine Estim Creat Clear Calc Est GFR (MDRD) Af Amer Est GFR (MDRD) Non-Af BUN/Creatinine Ratio Glucose Calcium Urine Color Brown Urine Clarity Cloudy Urine pH 5.0 Ur Specific [place] 1.025 Urine Protein 100 H Urine Glucose (UA) Normal Urine Ketones 5 H Urine Occult Blood 250 H Urine Nitrite Negative Urine Bilirubin Negative Urine Urobilinogen 1 H Ur Leukocyte Esterase 25 H Urine RBC > 100 SEEN Urine WBC 5-10 SEEN Ur Squamous Epith Cells 0 SEEN Calcium Oxalate Crystal RARE Urine Bacteria RARE Urine Mucus 0 SEEN 11/21/20 16:43 WBC RBC Hgb Hct MCV MCH MCHC RDW Std Deviation RDW Coeff of Del Plt Count MPV Immature Gran % (Auto) Neut % (Auto) Lymph % (Auto) [place] % (Auto) Eos % (Auto) Baso % (Auto) Absolute Neuts (auto) Absolute Lymphs (auto) Nucleated RBC % PT INR Sodium 142 Potassium 3.8 Chloride 109 H Carbon Dioxide 28.0 Anion Gap 5 BUN 16 Creatinine 0.90 Estim Creat Clear Calc 53.15 Est GFR (MDRD) Af Amer 103 Est GFR (MDRD) Non-Af 85 BUN/Creatinine Ratio 17.7 Glucose 91 Calcium 9.3 Urine Color Urine Clarity Urine pH Ur Specific [place] Urine Protein Urine Glucose (UA) Urine Ketones Urine Occult Blood Urine Nitrite Urine Bilirubin Urine Urobilinogen Ur Leukocyte Esterase Urine RBC Urine WBC Ur Squamous Epith Cells Calcium Oxalate Crystal Urine Bacteria Urine Mucus Radiography Diagnostic Testing: Radiology Impression Abdomen/Pelvis CT 11/21/20 16:24 IMPRESSION: 5 mm stone seen in the left renal pelvis without significant hydronephrosis. Other bilateral nonobstructing renal calculi as described above. New age indeterminate compression deformity of L4. Small bilateral pleural effusions left greater than right with interstitial edema. Infrarenal abdominal aorta is ectatic measuring 2.9 cm in diameter. Stable 6.3 cm simple cyst in the left renal mid pole. Electronically Signed: Mu Kendall MD at 17:36 EDT Tel , Service support , Discharge Plan Triage Chief Complaint: Complaint ED Provider: Jesse Peguero Dx/Rx/DC Orders Instructions: ED Kidney Stone w/ Colic Prescriptions: New ondansetron HCl [Zofran] 4 mg tablet 4 mg PO Q8H PRN (Reason: nausea and vomiting) Qty: 14 RF: 0 No Action Myrbetriq 50 mg tablet extended release 24 hr 50 mg PO DAILY RF: 0 omeprazole 20 MG capsule 20 mg PO DAILY RF: 0 rosuvastatin 40 MG tablet 40 mg PO DAILY RF: 0 tamsulosin 0.4 MG capsule,extended release 24hr 0.4 mg PO DAILY RF: 0 multivitamin 1 TABLET tablet 1 tablet PO DAILY RF: 0 levothyroxine 25 MCG tablet 25 mcg PO DAILY RF: 0 warfarin 4 MG tablet 4 mg PO SUTHFRSA RF: 0 warfarin 4 MG tablet 6 mg PO MOTUWE RF: 0 finasteride 5 MG tablet 5 mg PO DAILY RF: 0 metoprolol succinate 50 mg Tablet Extended Release 24 Hr 50 mg PO DAILY RF: 0 baclofen 10 mg Tablet 10 mg PO DAILY RF: 0 pantoprazole 40 mg Tablet,Delayed Release (Dr/Ec) 40 mg PO DAILY RF: 0 vitamin B complex Tablet 2 tab PO DAILY RF: 0 nitroglycerin 0.4 mg tablet, sublingual 0.4 mg SUBLINGUAL Q5M PRN (Reason: CHEST PAIN) Qty: 25 RF: 3 Primary Care Provider: Jono Harrington Chi Referrals: Heladio Mo MD [STAFF PHYSICIAN] - As soon as possible Jono Harrington Chi, MD [Primary Care Provider] - Disposition Disposition: Home, Self Care
[2020-11-21 16:39] LABS: Mucous, Urine 0 SEEN /hpf (<or=2+); Squamous Epithelial Cells - UA 0 SEEN /hpf (0-5)
[2020-11-21 16:51] LABS: Absolute Lymphocyte Count 1.04 X10^3/uL (0.83-4.51); Absolute Neutrophil Count 4.2 X10^3/uL (2.0-7.7); Basophil# 0.03 X10^3/uL; Basophil% 0.5 % (0-1); Eosinophil# 0.05 X10^3/uL; Eosinophils% 0.8 % (0-5); Hematocrit 39.2 % (40-54); Hemoglobin 12.7 g/dL (13.0-16.5); Lymphocyte # 1.04 X10^3/ul (0.83-4.51); Lymphocyte % 17.4 % (19-41); Mean Corp Hgb Conc 32.4 g/dL (32-36); Mean Corpuscular Hgb 31.4 pg (27.0-32.0); Mean Corpuscular Volume 96.8 fL (80-94); Mean Platelet Vol. 9.8 fl (6.2-12.0); Monocyte# 0.65 X10^3/uL; Monocyte% 10.9 % (0-10); NRBC Flagged by Analyzer 0 % (0-5); Neutrophil # 4.19 X10^3/uL (2.7-7.7); Neutrophil % 70.2 % (47-70); Platelet Count 204 K/mm3 (150-450); RBC Distribution Width CV 13.5 % (11.6-14.6); RBC Distribution Width SD 48.7 fl (35.1-43.9); Red Blood Count 4.05 M/mm3 (4.6-6.2)
[2020-11-21 16:52] LABS: Color, Urine Brown (Yellow); Glucose, Dipstick Normal (Normal); Ketone-Dipstick 5 mg/dl (Negative); Leukocyte Esterase-Dipstick 25 /ul (Negative); Nitrite-Dipstick Negative (Negative); Occult Blood-Urine 250 /ul (Negative); Protein-Dipstick 100 mg/dl (Negative); Specific Gravity, Urine 1.025 (1.002-1.030); Urine Bilirubin Dipstick Negative (Negative); Urine Clarity Cloudy (Clear); Urine Urobilinogen 1 mg/dl (Normal)
[2020-11-21 16:59] LABS: Red Blood Cells-Urine > 100 SEEN /hpf (0-5)
[2020-11-21 17:01] LABS: Calcium Oxalate Crystals Ur RARE /hpf (<or=2+); White Blood Cells 5-10 SEEN /hpf (0-5)
[2020-11-21 17:01] LABS: Prothrombin Time (Protime)PT. 30.3 SECONDS (11.7-14.9)
[2020-11-21 17:02] LABS: Bacteria RARE /hpf (None Seen)
[2020-11-21 17:04] LABS: Anion Gap 5 (5-15); BUN 16 mg/dL (7-18); BUN/Creat Ratio 17.7 RATIO (10-20); Calcium,Total 9.3 mg/dL (8.5-10.1); Chloride 109 mmol/L (98-107); EST Glomerular Filtration Rate 85 mL/min (>60); Est Glom Filt Rate - Afr Amer 103 mL/min (>60); Estimated Creatinine Clearance 53.15 ml/min; Glucose 91 mg/dL (74-106); Potassium 3.8 mmol/L (3.5-5.1); Sodium Level 142 mmol/L (136-145)
[2020-11-21 19:03] VITALS: BP 146/88; PULSE 90; RESP 15
== END 2020-11-21 19:04 | disposition home or self-care (01) ==
PROVIDERS: Emergency Provider Student in an Organized Health Care Education/Training Program; PCP Family Medicine Geriatric Medicine
DX: N13.2 Hydronephrosis with renal and ureteral calculous obstruction (principal); N28.1 Cyst of kidney, acquired; I77.811 Abdominal aortic ectasia; I48.20 Chronic atrial fibrillation, unspecified; I25.10 Atherosclerotic heart disease of native coronary artery without angina pectoris; I25.810 Atherosclerosis of coronary artery bypass graft(s) without angina pectoris; I42.9 Cardiomyopathy, unspecified; I10 Essential (primary) hypertension; I25.2 Old myocardial infarction; E78.00 Pure hypercholesterolemia, unspecified; E05.90 Thyrotoxicosis, unspecified without thyrotoxic crisis or storm; Z95.810 Presence of automatic (implantable) cardiac defibrillator; Z95.5 Presence of coronary angioplasty implant and graft; Z79.01 Long term (current) use of anticoagulants; Z79.899 Other long term (current) drug therapy; Z87.442 Personal history of urinary calculi; Z87.891 Personal history of nicotine dependence
CPT/HCPCS: 74176; 80048; 81001; 85025; 85610; 87086; 87088; 99283; A4216

== ENCOUNTER 2020-12-06 11:56 | Day surgery (SDC) | payer MEDICARE, SELFPAY ==
--- NOTE | 2020-12-06 12:15 | RAD_ITS ---
STUDY: X-RAY - ABDOMEN/PELVIS REASON FOR EXAM: Male, 85 years old. PRE-OP TECHNIQUE: Single AP view of the abdomen / pelvis. COMPARISON: None. FINDINGS: Normal visualized lung bases. There is an unremarkable bowel gas pattern. Calcific opacities overlying both kidneys consistent with bilateral renal stones. Status post cholecystectomy. Normal visualized osseous structures. RAD/Abdomen Single View IMPRESSION: Suspect bilateral renal stones. Electronically Signed: Jose Jay MD at 8:12 EDT Tel , Service support ,
[2020-12-06] MEDS: Lactated Ringers 1,000 ML 100 ML IV (12:20)
[2020-12-06 12:40] LABS: INR Fingerstick 1.9; Prothrombin Time Fingerstick 22.2 SEC (11.9-14.4)
[2020-12-06 12:42] VITALS: BP 103/67; PULSE 130; RESP 16; TEMP 36.3; O2SAT 98; BMI 25.7
[2020-12-06 12:55] LABS: International Normalized Ratio 1.3; Prothrombin Time (Protime)PT. 15.8 SECONDS (11.7-14.9)
[2020-12-06] MEDS: Cefazolin 2 GM in 0.9% Normal Saline 100 ML IV (16:39)
--- NOTE | 2020-12-06 17:04 | PCM.DC ---
Discharge Instructions Diet Discharge Diet: No restrictions Activity Discharge Activity: Return to Normal Activity and May Not Drive (while taking narcotic pain medications.) Dressing / Incision Call your doctor if you observe: Fever of 101 or Higher Follow Up Care Please Follow Up With: Heladio Mo MD When: Call [phone] for an appointment Test Results: Test results from this visit will be discussed in further detail at your follow-up appointment, if applicable. Discharge Plan Admission Primary Reason for Your Visit: left kidney stones Attending Provider: Heladio Mo Primary Care Provider: Jono Harrington Chi Discharge Orders/Prescriptions Prescriptions: New ciprofloxacin HCl [Cipro] 500 mg tablet 500 mg PO BID Qty: 10 RF: 0 oxycodone-acetaminophen 5-325 mg tablet 1 tab PO Q6H PRN (Reason: pain) 7 Days Qty: 14 RF: 0 Continued Myrbetriq 50 mg tablet extended release 24 hr 50 mg PO DAILY RF: 0 omeprazole 20 MG capsule 20 mg PO DAILY RF: 0 rosuvastatin 40 MG tablet 40 mg PO DAILY RF: 0 tamsulosin 0.4 MG capsule,extended release 24hr 0.4 mg PO QHS RF: 0 multivitamin 1 TABLET tablet 1 tablet PO DAILY RF: 0 levothyroxine 25 MCG tablet 25 mcg PO DAILY RF: 0 finasteride 5 MG tablet 5 mg PO QHS RF: 0 acetaminophen 650 mg tablet extended release 1,300 mg PO BID RF: 0 Flavonide 2 caplet PO/SL BID RF: 0 nitroglycerin 0.4 mg tablet, sublingual 0.4 mg SUBLINGUAL Q5M PRN (Reason: CHEST PAIN) Qty: 25 RF: 3 Held warfarin 4 MG tablet 6 mg PO MOTUWE RF: 0 Hold Instructions: Resume on 12/12/20. warfarin 4 mg tablet 4 mg PO .COMPLEX Qty: 135 RF: 3 Hold Instructions: Resume on 12/12/20. Referrals / Follow Up: Heladio Mo MD [STAFF PHYSICIAN] - Jono Harrington Chi, MD [Primary Care Provider] - Disposition Disposition (needs filled in before D/C Order can be placed): Home, Self Care
--- NOTE | 2020-12-06 17:05 | PCM.HP.STD ---
HPI - General HPI Narrative SHANTELL RIVERA, is a 85 M who presents for treatment of a left renal calculi in the renal pelvis that has been causing symptoms with bleeding and occasional pain on the left side. Today renal place a stent check the bladder and treat the stone in the left kidney. [facility] Medical History (Updated 12/06/20 @ 17:[address] 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 Non-healing non-surgical wound Old myocardial infarction Partial bowel obstruction Peripheral vascular disease Presence of combination internal cardiac defibrillator (ICD) and pacemaker Presence of stent in coronary artery (~02/21/03) Pure hypercholesterolemia Shortness of breath on exertion Thyroid disease Thyroid dysfunction Traumatic ecchymosis of left lower leg Wears dentures Home Medications omeprazole 20 mg PO DAILY 02/19/15 [History Last Taken 07/09/20] rosuvastatin 40 mg PO DAILY 02/19/15 [History Last Taken 07/09/20] tamsulosin 0.4 mg PO QHS 07/29/17 [History Last Taken 07/09/20] mirabegron 50 mg tablet,extended release 24 hr 50 mg PO DAILY 07/15/18 [History Last Taken 07/10/20] nitroglycerin 0.4 mg sublingual tablet 0.4 mg SUBLINGUAL Q5M PRN #25 tab 04/23/20 [Rx Last Taken Unknown] finasteride 5 mg PO QHS 07/10/20 [History Last Taken 07/10/20] levothyroxine 25 mcg PO DAILY 07/10/20 [History Last Taken 07/09/20] multivitamin 1 tablet PO DAILY 07/10/20 [History Last Taken 07/10/20] warfarin 6 mg PO MOTUWE 07/10/20 [History Last Taken 12/01/20] Flavonide 2 caplet PO/SL BID 12/02/20 [History Last Taken Unknown] acetaminophen 1,300 mg PO BID 12/02/20 [History Last Taken Unknown] warfarin 4 mg tablet 4 mg PO .COMPLEX #135 tab 12/05/20 [Rx Last Taken Unknown] ciprofloxacin HCl [Cipro] 500 mg PO BID #10 tab 12/06/20 [Rx Last Taken Unknown] oxycodone-acetaminophen 1 tab PO Q6H PRN 7 Days #14 tab 12/06/20 [Rx Last Taken Unknown] Allergy/AdvReac Type Severity Reaction Status Date / Time No Known Allergies Allergy Verified 12/06/20 12:18 Family History Father Lung cancer CVA (cerebral vascular accident) Brother Sudden cardiac Surgical History (Updated 12/02/20 @ 15:56 by Breann Rocha) Eyelid retraction unspecified eye, unspecified lid H/O hernia repair H/O myringoplasty History of cardiac catheterization History of coronary artery stent placement History of two vessel coronary artery bypass graft (~1997) Hx of CABG Hx of cholecystectomy Presence of coronary angioplasty implant and graft (~02/21/03) ureteral stent Social History Smoking Status: Former smoker how long ago did patient quit smokin years alcohol intake: never substance use type: does not use caffeine: No ROS Constitutional Constitutional: Denies chills, fever(s) or malaise Eyes Eyes: Denies blurry vision or change in vision ENT HEENT: Reports none Cardiovascular Cardiovascular: Denies chest pain or palpitations Respiratory/Chest Respiratory/Chest: Denies cough or shortness of breath with exertion Gastrointestinal Gastrointestinal: Denies abdominal pain, constipation or diarrhea Musculoskeletal Musculoskeletal: Denies back pain, joint stiffness or joint swelling Integumentary Integumentary: Denies dry skin, jaundice, lesions or rash Neurologic Neurologic: Denies confusion, syncope or weakness Psychiatric Psychiatric: Reports none; Denies anxiety or depression Endocrine Endocrinology: Denies excessive sweating, fatigue or flushing Hematologic/Lymphatic Hematologic/Lymphatic: Denies anemia, easy bleeding or easy bruising Vital Signs Vital Signs Vital Signs: 12/06/20 12:42 Temperature 97.3 F L Temperature Source Temporal Pulse Rate 130 H Respiratory Rate 16 Respiratory Pattern Normal Blood Pressure 103/67 Blood Pressure Mean 79 Blood Pressure Source Monitor Blood Pressure Position Semi-Fowlers Blood Pressure Location Left Arm Pulse Ox 98 Oxygen Delivery Method Room Air Weight Weight: 70.1 kg Body Mass Index (BMI) 25.7 Physical Exam Const alert and oriented x3 General Appearance: cooperative HEENT normocephalic, head/scalp atraumatic, EAC's normal and TM's normal bilaterally Eyes PERRL and EOMs intact bilaterally Pupil: sluggish Neck no lymphadenopathy, supple and no JVD General: trachea midline Lymph Lymphatic: no lymphadenopathy noted, lymphedema and lymphadenopathy Resp normal respiratory effort, normal air movement and clear to auscultation bilaterally Cardio regular rate, regular rhythm and peripheral pulses 2+ throughout GI soft to palpation, non-tender and non-distended Extremity normal capillary refill and no clubbing, cyanosis or edema General Extremity: no tenderness to palpation of joints or extremities Skin no rashes or lesions noted General Skin Exam: turgor normal Lesions: no lesions Rashes: no rashes Neuro CN's II-XII intact bilaterally Speech: speech normal Motor Exam: strength 5/5 throughout; Negative for general weakness Psych thought process normal, cooperative and affect normal Appearance: appropriate Results Lab / Micro Data Labs: Laboratory Results - last 24 hr 12/06/20 12:32: POC PT 22.2 H, INR 1.9 12/06/20 12:37: PT 15.8 H, INR 1.3 Assessment & Plan Assessment/Plan (1) Left renal stone: PLAN: Plan for treatment of the left kidney stone with shockwave lithotripsy his Coumadin has been on hold.
[2020-12-06] MEDS: dilTIAZem 25 MG/5 ML Vial IV BOLUS (17:15)
--- NOTE | 2020-12-06 17:27 | PCM.OPRPT ---
Report of Operation Date of Procedure: 12/06/20 Pre-Operative Diagnosis: Left renal calculi multiple Post-Operative Diagnosis: Same Surgery/Procedure Performed:: Cystoscopy s and left stent placement and left extracorporeal shockwave lithotripsy Description of Surgical Findings:: Patient presents to the hospital for treatment of a kidney stone with shockwave lithotripsy. In the preoperative area and x-ray was done to confirm the location of the stone. The x-ray was reviewed and the stone location was reviewed. In the preoperative setting I spoke with the patient regarding the treatment of the stone how the treatment would be conducted and the expectations after surgery. The patient understands there is a risk of bleeding and infection. Also discussed the very rare risk of hematoma or damage to the kidney. We also discussed the risk that the shockwave machine will fail to break the stone adequately and that the patient may need other surgical procedures. We also discussed the possibility that the patient may need a stent after the procedure. After reviewing the procedure with the patient, the patient is signed the consent form all the patient's questions were addressed and was taken back to the operating room for treatment of a kidney stone. Patient was taken back to the operating room, patient was identified by the nursing staff, we identified the side of the treatment and the patient side of treatment had been marked by my initials. The patient underwent general anesthetic and was placed supine on the lithotripter table. The urethra and genitals were prepped and draped in usual sterile fashion. Using a 21 [place] rigid cystourethroscope the entire length of the urethra was normal then went into the bladder. Identified the trigone the left and right ureteral orifice. I then cannulated the left orifice and advanced a wire up into the kidney. I then backloaded a 5 [place] open ended catheter over the wire and injected contrast to delineate the anatomy. After the retrograde was performed I then used fluoroscopic images and guidance to advanced a wire up into the kidney and over the 0.038 glidewire I advanced a 6 [place] by 26 cm double pigtail stent. I then pulled the 0.038 Glidewire off and the stent coiled in the kidney bladder good position. The bladder was then drained. We confirmed the position of the stent by fluoroscopy. We then used fluoroscopy to identify the stones on the left side. We then positioned the patient under the lithotripter and we used triangulation technique to identify the location of the stone and then we made sure that the stone was engaged in the F2 focal point of F2 Donier lithoprior machine. Once the patient was positioned appropriately and the stone was identified and placed in the F2 focal point of the lithotripter machine we then proceeded with shockwave lithotripsy. In the beginning the shockwave was delivered at a rate of 90 shocks per minute, we monitor the EKG for any ectopy. The power was slowly increased to 5 kV and subsequently at the 7 kV. We then proceeded with the treatment we move the therapy had around during the treatment to make sure the stone stayed in the F2 focal point during the entire treatment and after 3000 shockwaves were delivered to the stone under fluoroscopic guidance the treatment was completed. The stones broke up successfully. The patient was given instructions to call the office to make an a follow-up appointment with an xray to evaluate the success of the treatment, pateint understands that its possible the stones may need another procedure.At this point the patient's anesthetic was reversed patient was extubated and taken back to the PACU in stable condition. Surgeon: kaur Type of Anesthesia: General Drains: left stent Admit VTE Documentation VTE Present on Admission: No VTE Mechan Device Prophylaxis: SCD's
[2020-12-06 17:42] VITALS: BP 103/67; BP 144/83; PULSE 95; RESP 18; TEMP 36.2; O2SAT 97
[2020-12-06] MEDS: Ketorolac 15 MG/ML Vial IV (17:57)
[2020-12-06 18:00] VITALS: BP 103/67; BP 154/84; PULSE 98; RESP 18; O2SAT 97
[2020-12-06 18:15] VITALS: BP 103/67; BP 140/90; PULSE 97; RESP 18; TEMP 36.1; O2SAT 96
[2020-12-06 18:28] VITALS: BP 103/67; BP 145/94; PULSE 96; RESP 16; TEMP 36.2; O2SAT 97
== END 2020-12-06 18:50 | disposition home or self-care (01) ==
LOC: SDC 11:57 → AC 11:59
PROVIDERS: PCP Family Medicine Geriatric Medicine; Referring Provider Urology; Visit Provider Urology
PROC: (CPT 50590; principal; 2020-12-06 14:10)
DX: N20.0 Calculus of kidney (principal); I25.10 Atherosclerotic heart disease of native coronary artery without angina pectoris; I25.810 Atherosclerosis of coronary artery bypass graft(s) without angina pectoris; I48.20 Chronic atrial fibrillation, unspecified; I11.0 Hypertensive heart disease with heart failure; I50.32 Chronic diastolic (congestive) heart failure; I25.2 Old myocardial infarction; E78.00 Pure hypercholesterolemia, unspecified; K21.9 Gastro-esophageal reflux disease without esophagitis; N40.1 Benign prostatic hyperplasia with lower urinary tract symptoms; R35.1 Nocturia; R31.0 Gross hematuria; Z95.5 Presence of coronary angioplasty implant and graft; Z95.810 Presence of automatic (implantable) cardiac defibrillator; Z79.01 Long term (current) use of anticoagulants; Z79.899 Other long term (current) drug therapy; Z87.442 Personal history of urinary calculi; Z87.891 Personal history of nicotine dependence
CPT/HCPCS: 52356; 36416; 74018; 85610; J7120; C1769; C2617; J2405

== ENCOUNTER 2020-12-09 10:23 | Outpatient (RCR) | payer MEDICARE, SELFPAY ==
[2020-11-26 17:20] LABS: International Normalized Ratio 2.8; Prothrombin Time (Protime)PT. 28.6 SECONDS (11.7-14.9)
[2020-12-09 12:35] LABS: International Normalized Ratio 1.3; Prothrombin Time (Protime)PT. 15.7 SECONDS (11.7-14.9)
== END 2020-12-09 18:00 | disposition home or self-care (01) ==
LOC: LAB 10:23
PROVIDERS: Family Provider Family Medicine Geriatric Medicine; PCP Family Medicine Geriatric Medicine; Referring Provider Internal Medicine Cardiovascular Disease; Visit Provider Internal Medicine Cardiovascular Disease
DX: I48.20 Chronic atrial fibrillation, unspecified (principal); Z79.01 Long term (current) use of anticoagulants
CPT/HCPCS: 36415; 85610

== ENCOUNTER → 2020-12-16 09:06 | Outpatient (CLI) | payer MEDICARE, SELFPAY ==
[2020-12-06 12:42] VITALS: BMI 25.7
--- NOTE | 2020-12-16 09:07 | RAD_ITS ---
STUDY: X-RAY - ABDOMEN/PELVIS REASON FOR EXAM: Male, 85 years old. CALCULUS OF KIDNEY TECHNIQUE: KUB COMPARISON: 12/06/2020. FINDINGS: Normal visualized lung bases. There is an unremarkable bowel gas pattern. There is no demonstrated free abdominal air. Postsurgical change status post cholecystectomy.. Bilateral nonobstructing renal calculi.. There is a calculus within the left ureter approximately L3 association with a ureterovesical stent. Lumbar spine demonstrates mild scoliosis and degenerative change No significant change since prior study. RAD/Abdomen Single View IMPRESSION: Bilateral nephrolithiasis. Persistent left ureteral calculus status post ureterovesical stent placement. Electronically Signed: Sanford Calderon MD at 17:00 EDT , Service support ,
== END ==
PROVIDERS: PCP Family Medicine Geriatric Medicine; Referring Provider Urology; Visit Provider Urology
DX: N20.2 Calculus of kidney with calculus of ureter (principal)
CPT/HCPCS: 74018

== ENCOUNTER 2021-01-15 13:19 | Outpatient (RCR) | payer MEDICARE, SELFPAY ==
[2020-12-24 23:47] VITALS: BMI 25.9
[2021-01-07 11:14] LABS: International Normalized Ratio 3.5; Prothrombin Time (Protime)PT. 33.9 SECONDS (11.7-14.9)
[2021-01-15 13:52] LABS: International Normalized Ratio 3.5; Prothrombin Time (Protime)PT. 34.2 SECONDS (11.7-14.9)
[2021-01-15 14:23] LABS: Anion Gap 4 (5-15); BUN 16 mg/dL (7-18); Calcium,Total 9.8 mg/dL (8.5-10.1); Chloride 111 mmol/L (98-107); EST Glomerular Filtration Rate 76 mL/min (>60); Est Glom Filt Rate - Afr Amer 92 mL/min (>60); Glucose 130 mg/dL (74-106); Potassium 3.9 mmol/L (3.5-5.1); Sodium Level 142 mmol/L (136-145)
[2021-01-15 14:41] LABS: Digoxin Level 1.18 ng/mL (0.80-2.00)
== END 2021-01-15 18:00 | disposition home or self-care (01) ==
LOC: LAB 13:19
PROVIDERS: Family Provider Family Medicine Geriatric Medicine; PCP Family Medicine Geriatric Medicine; Referring Provider Internal Medicine Cardiovascular Disease; Visit Provider Internal Medicine Cardiovascular Disease
DX: I48.20 Chronic atrial fibrillation, unspecified (principal); Z79.01 Long term (current) use of anticoagulants
CPT/HCPCS: 36415; 80048; 80162; 85610

== ENCOUNTER → 2021-01-28 09:29 | Outpatient (CLI) | payer MEDICARE, SELFPAY ==
--- NOTE | 2021-01-28 09:33 | RAD_ITS ---
INDICATION: KIDNEY STONES EXAMINATION/TECHNIQUE: X-RAY - XR Abdomen 1 View COMPARISON: 11/21/2020 FINDINGS: Multiple calcifications visualized superimposed over the right renal bed largest of which measures 0.7 cm. No prominent calcifications superimposed over the left renal bed. Splenic calcifications visualized in the left upper quadrant suggestive of vascular calcifications. Extensive atherosclerotic vascular calcifications are seen. Non-obstructive. No bowel or stomach distention. Not assessed on a single supine view. Prominence of the bronchovascular interstitial lung markings visualized in the lower lung tavarez more prominent in the left lower lung field where there is faint airspace opacification suggestive of either pleural reaction or small left pleural fluid. Extensive degenerative bone changes visualized with dextroscoliosis of the lumbar spine seen. Suggestion of compression deformity of multiple vertebral bodies is visualized, this would indicate progression in comparison to the prior study where there was only compression of the L4 vertebral body and fusion of the T12-L1 vertebral bodies. Would recommend clinical correlation for back pain. Compression deformity of the T9 vertebral body. RAD/Abdomen Single View IMPRESSION: Multiple calcifications visualized superimposed over the right renal bed. Vascular calcifications visualized in the left lower quadrant. Multiple compression deformities in the lumbar vertebral bodies that weren''t not seen on the prior study would recommend clinical correlation Compression deformity of the T9 vertebral body.. Electronically Signed: Salomón Temple MD at 13:38 EDT Tel , Service support ,
[2021-01-28 14:20] LABS: M R Staph aureus DNA By PCR Negative (Negative); Probe Check PASS; Specimen Processing Control PASS; Staph aureus DNA By PCR NEGATIVE (Negative)
== END ==
LOC: RAD.FUTURE 09:30 → RAD 09:32
PROVIDERS: PCP Family Medicine Geriatric Medicine; Referring Provider Urology; Visit Provider Urology
DX: N20.0 Calculus of kidney (principal); B95.62 Methicillin resistant Staphylococcus aureus infection as the cause of diseases classified elsewhere
CPT/HCPCS: 74018; 87070; 87205; 87640

== ENCOUNTER → 2021-01-28 11:48 | Outpatient (CLI) | payer MEDICARE, SELFPAY ==
--- NOTE | 2021-01-28 11:50 | CT_ITS ---
EXAM: CT HEAD WITHOUT INTRAVENOUS CONTRAST : 1935 CLINICAL INDICATION: INJURY OF HEAD TECHNIQUE: Multiple axial images were obtained of the head without intravenous contrast. This CT exam was performed using one or more of the following dose reduction techniques: automated exposure control, adjustment of the mA and/or kV according to patient size, and/or use of iterative reconstruction technique. This report was created using [employer] report generation technology. COMPARISON: 06/18/2016 FINDINGS: BRAIN AND EXTRA-AXIAL SPACES: There is mild enlargement of the ventricular system and cortical sulci. There is hypoattenuation in the periventricular white matter. No intra- or extra-axial hemorrhage. No evidence of acute infarct. No intracranial mass or mass effect. There is preservation of the doss/white matter interface. Posterior fossa structures are unremarkable. Basal cisterns are patent. BONES/JOINTS: Unremarkable. No discrete lytic or blastic abnormalities. SINUSES: Unremarkable as visualized. Clear. MASTOID AIR CELLS: Unremarkable. Clear. ORBITS: Visualized globes, extraocular muscles, optic nerves and retrobulbar fat appear unremarkable. CT/Brain/Head without Contrast IMPRESSION: 1. No acute intracranial abnormality. There has been no change from the reference examination. 2. Stable underlying senescent change with small vessel ischemia. Individualized dose optimization techniques were used for this CT. at 1305 Reported and signed by: Filiberto Hernandez MD Electronically Signed: Filiberto Hernandez MD at 13:04 EDT Tel , Service support ,
== END ==
PROVIDERS: PCP Family Medicine Geriatric Medicine; Referring Provider Family Medicine Geriatric Medicine; Visit Provider Family Medicine Geriatric Medicine
DX: S09.90XD Unspecified injury of head, subsequent encounter (principal); N20.0 Calculus of kidney; B95.62 Methicillin resistant Staphylococcus aureus infection as the cause of diseases classified elsewhere
CPT/HCPCS: 70450; 74018; 87070; 87205; 87640

== ENCOUNTER 2021-02-04 08:59 | Outpatient (RCR) | payer MEDICARE, SELFPAY | END 2021-02-23 23:59 | LOC: WC 08:59 | PROVIDERS: PCP Family Medicine Geriatric Medicine; Visit Provider Surgery | DX: Z09 Encounter for follow-up examination after completed treatment for conditions other than malignant neoplasm (principal) ==

== ENCOUNTER 2021-02-21 10:16 | Outpatient (RCR) | payer MEDICARE, SELFPAY ==
[2021-01-23 21:22] VITALS: BMI 25.9
[2021-01-29 16:02] LABS: Prothrombin Time (Protime)PT. 38.8 SECONDS (11.7-14.9)
[2021-01-29 16:17] LABS: International Normalized Ratio 4.1
[2021-02-10 13:15] LABS: Absolute Lymphocyte Count 0.89 X10^3/uL (0.83-4.51); Absolute Neutrophil Count 6.2 X10^3/uL (2.0-7.7); Basophil# 0.06 X10^3/uL; Basophil% 0.8 % (0-1); Eosinophil# 0.05 X10^3/uL; Eosinophils% 0.6 % (0-5); Hematocrit 38.8 % (40-54); Lymphocyte # 0.89 X10^3/ul (0.83-4.51); Lymphocyte % 11.2 % (19-41); Mean Corp Hgb Conc 33.5 g/dL (32-36); Mean Corpuscular Hgb 31.2 pg (27.0-32.0); Mean Platelet Vol. 10.4 fl (6.2-12.0); Monocyte# 0.79 X10^3/uL; Monocyte% 9.9 % (0-10); NRBC Flagged by Analyzer 0 % (0-5); Neutrophil # 6.16 X10^3/uL (2.7-7.7); Neutrophil % 77.2 % (47-70); Platelet Count 221 K/mm3 (150-450); RBC Distribution Width CV 14.2 % (11.6-14.6); RBC Distribution Width SD 48.4 fl (35.1-43.9); Red Blood Count 4.17 M/mm3 (4.6-6.2)
[2021-02-10 13:29] LABS: International Normalized Ratio 3.6; Prothrombin Time (Protime)PT. 35.2 SECONDS (11.7-14.9)
[2021-02-19 13:57] LABS: International Normalized Ratio 8.5; Prothrombin Time (Protime)PT. 69.5 SECONDS (11.7-14.9)
[2021-02-21 10:46] LABS: Prothrombin Time (Protime)PT. 40.3 SECONDS (11.7-14.9)
[2021-02-21 10:51] LABS: International Normalized Ratio 4.3
== END 2021-02-23 18:00 | disposition home or self-care (01) ==
LOC: LAB 10:16
PROVIDERS: Physician Assistant Medical; Family Provider Family Medicine Geriatric Medicine; PCP Family Medicine Geriatric Medicine; Referring Provider Internal Medicine Cardiovascular Disease; Visit Provider Internal Medicine Cardiovascular Disease
DX: I48.20 Chronic atrial fibrillation, unspecified (principal); Z79.01 Long term (current) use of anticoagulants
CPT/HCPCS: 36415; 85025; 85610

== ENCOUNTER 2021-03-18 10:06 | Outpatient (RCR) | payer MEDICARE, SELFPAY ==
[2021-02-23 20:12] VITALS: BMI 25.9
[2021-02-25 10:55] LABS: International Normalized Ratio 1.6; Prothrombin Time (Protime)PT. 18.1 SECONDS (11.7-14.9)
[2021-03-04 10:10] LABS: International Normalized Ratio 2.1; Prothrombin Time (Protime)PT. 23.2 SECONDS (11.7-14.9)
[2021-03-12 14:10] LABS: International Normalized Ratio 3.7; Prothrombin Time (Protime)PT. 35.8 SECONDS (11.7-14.9)
[2021-03-18 11:51] LABS: International Normalized Ratio 3.1; Prothrombin Time (Protime)PT. 30.9 SECONDS (11.7-14.9)
== END 2021-03-25 18:00 | disposition home or self-care (01) ==
LOC: LAB 10:06
PROVIDERS: Family Provider Family Medicine Geriatric Medicine; PCP Family Medicine Geriatric Medicine; Referring Provider Internal Medicine Cardiovascular Disease; Visit Provider Internal Medicine Cardiovascular Disease
DX: I48.20 Chronic atrial fibrillation, unspecified (principal); Z79.01 Long term (current) use of anticoagulants
CPT/HCPCS: 36415; 85610

== ENCOUNTER → 2021-03-19 09:48 | Outpatient (CLI) | payer MEDICARE, SELFPAY ==
--- NOTE | 2021-03-19 10:05 | RAD_ITS ---
STUDY: X-RAY - THORACIC SPINE REASON FOR EXAM: Male, 85 years old. Back pain. TECHNIQUE: 2 view(s) of the thoracic spine were obtained on 4 images. COMPARISON: Lumbar spine images dated 08/27/2020. FINDINGS: Marked osteopenia. Increased kyphosis. Thoracolumbar scoliosis. Anterior wedge compression deformities of the T12 and L1 vertebral bodies, age undetermined. Diffuse intervertebral disc space narrowing with small osteophytes. Marked vascular calcification, aortic calcification and changes of coronary artery bypass grafting with a dual-lead cardiac pacer. RAD/Thoracic Spine 3 Views IMPRESSION: Osteopenia with diffuse moderate thoracic spondylosis. Increased kyphosis and scoliosis. Anterior wedge compression deformities of T12 on L1, age undetermined, but unchanged from comparison lumbar spine images. Electronically Signed: Bernabe Rojas MD at 9:42 EST , Service support ,
== END ==
PROVIDERS: PCP Family Medicine Geriatric Medicine; Referring Provider Anesthesiology Pain Medicine; Visit Provider Anesthesiology Pain Medicine
DX: M47.814 Spondylosis without myelopathy or radiculopathy, thoracic region (principal)
CPT/HCPCS: 72072

== ENCOUNTER → 2021-03-31 14:00 | Outpatient (CLI) | payer MEDICARE, SELFPAY ==
--- NOTE | 2021-03-31 14:05 | RAD_ITS ---
EXAM: XR ABDOMEN, 2 VIEWS CLINICAL INDICATION: ABD PAIN TECHNIQUE: Frontal view of the abdomen/pelvis with upright view of the abdomen. This report was created using [employer] report generation technology. COMPARISON: CT abdomen and pelvis 11/21/2020 FINDINGS: LIMITATIONS: No suspicious calcifications within the limits of this examination. LOWER THORAX: Left pleural parenchymal disease. Consider scarring or small pleural effusion. This is incompletely imaged. INTRAPERITONEAL SPACE: No free air. GASTROINTESTINAL TRACT: No bowel obstruction. Scattered stool identified throughout the colon. ORGANS: Prior cholecystectomy. No organomegaly. No abnormal calcifications. BONES/JOINTS: Degenerative changes of the spine and pelvis. No unusual lytic or sclerotic lesions of bone. Old healed left rib fractures. SOFT TISSUES: No acute pathology. VASCULATURE: Extensive atherosclerotic calcifications of the splenic artery, aorta and iliac arteries as well as the femoral arteries. Abdominal aorta measures up to 3 cm. RAD/Abd Inc Decub and/or Erect IMPRESSION: No acute disease or bowel obstruction. Stool and gas throughout the colon can be seen with constipation. Electronically Signed: Jerald Hines MD at 5:02 EST Tel , Service support ,
== END ==
PROVIDERS: PCP Family Medicine Geriatric Medicine; Referring Provider Family Medicine Geriatric Medicine; Visit Provider Family Medicine Geriatric Medicine
DX: R10.9 Unspecified abdominal pain (principal); I48.20 Chronic atrial fibrillation, unspecified; Z79.01 Long term (current) use of anticoagulants
CPT/HCPCS: 36415; 74019; 80053; 84443; 85025; 85610; 87086

== ENCOUNTER 2021-04-22 10:24 | Outpatient (RCR) | payer MEDICARE, SELFPAY ==
[2021-03-26 03:29] VITALS: BMI 25.9
[2021-03-31 13:43] LABS: International Normalized Ratio 3.8; Prothrombin Time (Protime)PT. 36.2 SECONDS (11.7-14.9)
[2021-03-31 16:28] LABS: Absolute Lymphocyte Count 0.79 X10^3/uL (0.83-4.51); Absolute Neutrophil Count 5.7 X10^3/uL (2.0-7.7); Basophil# 0.01 X10^3/uL; Basophil% 0.1 % (0-1); Eosinophil# 0.01 X10^3/uL; Eosinophils% 0.1 % (0-5); Hematocrit 39.4 % (40-54); Hemoglobin 13.3 g/dL (13.0-16.5); Lymphocyte # 0.79 X10^3/ul (0.83-4.51); Lymphocyte % 10.8 % (19-41); Mean Corp Hgb Conc 33.8 g/dL (32-36); Mean Corpuscular Hgb 30.9 pg (27.0-32.0); Mean Corpuscular Volume 91.6 fL (80-94); Mean Platelet Vol. 10.5 fl (6.2-12.0); Monocyte# 0.78 X10^3/uL; Monocyte% 10.7 % (0-10); NRBC Flagged by Analyzer 0 % (0-5); Neutrophil # 5.71 X10^3/uL (2.7-7.7); Neutrophil % 78.2 % (47-70); Platelet Count 235 K/mm3 (150-450); RBC Distribution Width CV 14.8 % (11.6-14.6); White Blood Count 7.3 K/mm3 (4.4-11.0)
[2021-03-31 17:03] LABS: ALB/GLOB Ratio 1.1 RATIO (0.9-2.4); AST(SGOT) 31 U/L (15-37); Alanine Aminotransfer ALT/SGPT 32 U/L (16-61); Albumin, Serum 3.2 g/dL (3.2-5.0); Alkaline Phosphatase 67 U/L (45-117); Anion Gap 10 (5-15); BUN 17 mg/dL (7-18); BUN/Creat Ratio 16.2 RATIO (10-20); Calcium,Total 8.9 mg/dL (8.5-10.1); Chloride 102 mmol/L (98-107); Creatinine, Serum 1.05 mg/dL (0.70-1.30); EST Glomerular Filtration Rate 71 mL/min (>60); Est Glom Filt Rate - Afr Amer 86 mL/min (>60); Globulin 2.9 g/dL (2.2-4.2); Glucose 97 mg/dL (74-106); Potassium 2.8 mmol/L (3.5-5.1); Protein, Total 6.1 g/dL (6.4-8.2); Sodium Level 141 mmol/L (136-145)
[2021-04-08 11:23] LABS: International Normalized Ratio 1.5; Prothrombin Time (Protime)PT. 17.6 SECONDS (11.7-14.9)
[2021-04-08 11:31] LABS: Anion Gap 5 (5-15); BUN 11 mg/dL (7-18); BUN/Creat Ratio 11.3 RATIO (10-20); Chloride 111 mmol/L (98-107); Creatinine, Serum 0.97 mg/dL (0.70-1.30); EST Glomerular Filtration Rate 78 mL/min (>60); Est Glom Filt Rate - Afr Amer 94 mL/min (>60); Glucose 97 mg/dL (74-106); Potassium 3.9 mmol/L (3.5-5.1); Sodium Level 143 mmol/L (136-145)
[2021-04-15 11:18] LABS: International Normalized Ratio 1.5; Prothrombin Time (Protime)PT. 17.6 SECONDS (11.7-14.9)
[2021-04-22 10:50] LABS: International Normalized Ratio 1.4; Prothrombin Time (Protime)PT. 16.7 SECONDS (11.7-14.9)
== END 2021-04-26 18:00 | disposition home or self-care (01) ==
LOC: LAB 10:24
PROVIDERS: Family Provider Family Medicine Geriatric Medicine; PCP Family Medicine Geriatric Medicine; Referring Provider Internal Medicine Cardiovascular Disease; Visit Provider Internal Medicine Cardiovascular Disease
DX: Z79.01 Long term (current) use of anticoagulants (principal); I48.20 Chronic atrial fibrillation, unspecified; E87.6 Hypokalemia
CPT/HCPCS: 36415; 80048; 80053; 84443; 85025; 85610; 87086

== ENCOUNTER → 2021-04-22 11:28 | Outpatient (CLI) | payer MEDICARE, SELFPAY ==
[2021-04-22 12:27] LABS: Absolute Neutrophil Count 3.9 X10^3/uL (2.0-7.7); Basophil# 0.05 X10^3/uL; Basophil% 0.9 % (0-1); Eosinophil# 0.09 X10^3/uL; Eosinophils% 1.6 % (0-5); Hematocrit 41.8 % (40-54); Hemoglobin 13.8 g/dL (13.0-16.5); Mean Corpuscular Hgb 31.9 pg (27.0-32.0); Mean Corpuscular Volume 96.8 fL (80-94); Mean Platelet Vol. 10.2 fl (6.2-12.0); Monocyte# 0.63 X10^3/uL; Monocyte% 10.9 % (0-10); NRBC Flagged by Analyzer 0 % (0-5); Neutrophil # 3.88 X10^3/uL (2.7-7.7); Neutrophil % 67.1 % (47-70); Platelet Count 188 K/mm3 (150-450); RBC Distribution Width CV 14.1 % (11.6-14.6); RBC Distribution Width SD 50.1 fl (35.1-43.9); Red Blood Count 4.32 M/mm3 (4.6-6.2); White Blood Count 5.8 K/mm3 (4.4-11.0)
[2021-04-22 12:42] LABS: Vitamin D,25 Hydroxy 28.4 ng/mL
[2021-04-22 12:47] LABS: AST(SGOT) 20 U/L (15-37); Alanine Aminotransfer ALT/SGPT 21 U/L (16-61); Albumin, Serum 3.3 g/dL (3.2-5.0); Alkaline Phosphatase 56 U/L (45-117); Anion Gap 8 (5-15); BUN 15 mg/dL (7-18); BUN/Creat Ratio 14.2 RATIO (10-20); Calcium,Total 10.2 mg/dL (8.5-10.1); Chloride 107 mmol/L (98-107); Creatinine, Serum 1.06 mg/dL (0.70-1.30); EST Glomerular Filtration Rate 71 mL/min (>60); Est Glom Filt Rate - Afr Amer 85 mL/min (>60); Globulin 3.3 g/dL (2.2-4.2); Glucose 102 mg/dL (74-106); Protein, Total 6.6 g/dL (6.4-8.2); Sodium Level 143 mmol/L (136-145); Thyroid Stim Hormone (TSH) 2.75 uIU/mL (0.358-3.74)
== END ==
PROVIDERS: PCP Family Medicine Geriatric Medicine; Visit Provider Family Medicine Geriatric Medicine
DX: I10 Essential (primary) hypertension (principal); E87.6 Hypokalemia; E55.9 Vitamin D deficiency, unspecified; I48.20 Chronic atrial fibrillation, unspecified; Z79.01 Long term (current) use of anticoagulants
CPT/HCPCS: 36415; 80048; 80053; 82306; 84443; 85025; 85610

== ENCOUNTER 2021-05-20 10:26 | Outpatient (RCR) | payer MEDICARE, SELFPAY ==
[2021-04-27 04:32] VITALS: BMI 25.9
[2021-04-29 12:26] LABS: International Normalized Ratio 2.1; Prothrombin Time (Protime)PT. 22.5 SECONDS (11.7-14.9)
[2021-05-06 12:56] LABS: International Normalized Ratio 1.9; Prothrombin Time (Protime)PT. 20.9 SECONDS (11.7-14.9)
[2021-05-20 11:23] LABS: International Normalized Ratio 2.3; Prothrombin Time (Protime)PT. 24.4 SECONDS (11.7-14.9)
== END 2021-05-26 18:00 | disposition home or self-care (01) ==
LOC: LAB 10:26
PROVIDERS: Family Provider Family Medicine Geriatric Medicine; PCP Family Medicine Geriatric Medicine; Referring Provider Internal Medicine Cardiovascular Disease; Visit Provider Internal Medicine Cardiovascular Disease
DX: I48.20 Chronic atrial fibrillation, unspecified (principal); Z79.01 Long term (current) use of anticoagulants
CPT/HCPCS: 36415; 85610

== ENCOUNTER 2021-06-05 16:33 | Outpatient (CLI) | payer MEDICARE, SELFPAY ==
--- NOTE | 2021-06-05 16:50 | RAD_ITS ---
STUDY: XR Chest 2 Views 06/05/2021 4:53 PM REASON FOR EXAM: Male, 85 years old. CHEST PAIN CHEST PAIN COMPARISON: None TECHNIQUE: XR Chest 2 Views FINDINGS: There is no demonstrated pleural abnormality. There is a left sided pacemaker battery pack. Multiple median sternotomy wires are noted consistent for cardiac surgery. Normal heart size. Normal mediastinum. Normal jostin. Prominent appearing increased interstitial lung markings. Normal visualized pulmonary arteries. There is atherosclerotic calcification of the aortic arch with tortuosity. There are diffuse degenerative changes of the visualized thoracic spine. There is degenerative osteoarthritis of the bilateral shoulders. There is no demonstrated abnormality of the visualized soft tissue structures of the upper abdomen. RAD/Chest PA and Lateral IMPRESSION: There are no acute findings. Electronically Signed: Kit Lee MD at 20:52 EST ,
--- NOTE | 2021-06-05 16:50 | RAD_ITS ---
EXAM: XR ABDOMEN, 1 VIEW CLINICAL INDICATION: CONSTIPATION TECHNIQUE: Frontal supine view of the abdomen/pelvis. This report was created using [employer] report generation technology. COMPARISON: None. FINDINGS: LOWER THORAX: No acute pathology. GASTROINTESTINAL TRACT: Unremarkable. Non-obstructive. No bowel or stomach distention. ORGANS: Unremarkable as visualized. No organomegaly. No abnormal calcifications. BONES/JOINTS: Degenerative findings of the hips. Degenerative findings in the lower lumbar spine. SOFT TISSUES: No acute pathology. VASCULATURE: There are atherosclerotic vascular calcifications. RAD/Abdomen Single View IMPRESSION: No acute findings. Electronically Signed: Kit Lee MD at 20:53 EST ,
[2021-06-05 17:12] LABS: Absolute Lymphocyte Count 0.86 X10^3/uL (0.83-4.51); Absolute Neutrophil Count 4.8 X10^3/uL (2.0-7.7); Basophil# 0.06 X10^3/uL; Basophil% 0.9 % (0-1); Eosinophil# 0.03 X10^3/uL; Eosinophils% 0.5 % (0-5); Hematocrit 39.2 % (40-54); Hemoglobin 14.2 g/dL (13.0-16.5); Lymphocyte # 0.86 X10^3/ul (0.83-4.51); Lymphocyte % 13.1 % (19-41); Mean Corp Hgb Conc 36.2 g/dL (32-36); Mean Corpuscular Hgb 32.4 pg (27.0-32.0); Mean Corpuscular Volume 89.5 fL (80-94); Mean Platelet Vol. 10.6 fl (6.2-12.0); Monocyte# 0.78 X10^3/uL; Monocyte% 11.9 % (0-10); NRBC Flagged by Analyzer 0 % (0-5); Neutrophil # 4.79 X10^3/uL (2.7-7.7); Neutrophil % 73.3 % (47-70); Platelet Count 248 K/mm3 (150-450); RBC Distribution Width CV 12.8 % (11.6-14.6); Red Blood Count 4.38 M/mm3 (4.6-6.2); White Blood Count 6.5 K/mm3 (4.4-11.0)
[2021-06-05 18:14] LABS: AST(SGOT) 29 U/L (15-37); Alanine Aminotransfer ALT/SGPT 26 U/L (16-61); Albumin, Serum 3.1 g/dL (3.2-5.0); Alkaline Phosphatase 91 U/L (45-117); Anion Gap 9 (5-15); BUN 20 mg/dL (7-18); BUN/Creat Ratio 14.5 RATIO (10-20); Chloride 96 mmol/L (98-107); Creatinine, Serum 1.38 mg/dL (0.70-1.30); EST Glomerular Filtration Rate 52 mL/min (>60); Est Glom Filt Rate - Afr Amer 63 mL/min (>60); Glucose 92 mg/dL (74-106); PSA,Total - Annual Screen 0.22 ng/mL (0.00-4.00); Potassium 2.7 mmol/L (3.5-5.1); Protein, Total 6.1 g/dL (6.4-8.2); Sodium Level 137 mmol/L (136-145); Thyroid Stim Hormone (TSH) 1.56 uIU/mL (0.358-3.74)
[2021-06-05 18:15] LABS: Digoxin Level 2.51 ng/mL (0.80-2.00)
== END 2021-06-05 23:59 | disposition home or self-care (01) ==
LOC: POLAB3 16:34 → RAD 16:41
PROVIDERS: PCP Family Medicine Geriatric Medicine; Referring Provider Family Medicine Geriatric Medicine; Visit Provider Family Medicine Geriatric Medicine
DX: T46.0X1A Poisoning by cardiac-stimulant glycosides and drugs of similar action, accidental (unintentional), initial encounter (principal); I10 Essential (primary) hypertension; K59.00 Constipation, unspecified; N39.0 Urinary tract infection, site not specified; R07.9 Chest pain, unspecified; Z12.5 Encounter for screening for malignant neoplasm of prostate
CPT/HCPCS: 36415; 71046; 74018; 80053; 80162; 84153; 84443; 85025; 87086; G0103

== ENCOUNTER 2021-06-09 11:13 | Outpatient (CLI) | payer MEDICARE, SELFPAY ==
[2021-06-09 12:54] LABS: Anion Gap 5 (5-15); BUN 13 mg/dL (7-18); BUN/Creat Ratio 10.4 RATIO (10-20); Calcium,Total 8.7 mg/dL (8.5-10.1); Chloride 105 mmol/L (98-107); Creatinine, Serum 1.25 mg/dL (0.70-1.30); EST Glomerular Filtration Rate 58 mL/min (>60); Est Glom Filt Rate - Afr Amer 71 mL/min (>60); Glucose 92 mg/dL (74-106); Potassium 3.4 mmol/L (3.5-5.1); Sodium Level 141 mmol/L (136-145)
[2021-06-09 13:12] LABS: Digoxin Level 1.43 ng/mL (0.80-2.00)
== END 2021-06-09 23:59 | disposition home or self-care (01) ==
LOC: POLAB3 11:14
PROVIDERS: PCP Family Medicine Geriatric Medicine; Visit Provider Family Medicine Geriatric Medicine
DX: E87.6 Hypokalemia (principal); I48.91 Unspecified atrial fibrillation
CPT/HCPCS: 36415; 80048; 80162

== ENCOUNTER 2021-06-10 10:42 | Outpatient (RCR) | payer MEDICARE, SELFPAY ==
[2021-05-27 01:21] VITALS: BMI 25.9
[2021-06-03 13:40] LABS: International Normalized Ratio 3.2; Prothrombin Time (Protime)PT. 31.7 SECONDS (11.7-14.9)
[2021-06-10 11:33] LABS: International Normalized Ratio 2.5; Prothrombin Time (Protime)PT. 25.8 SECONDS (11.7-14.9)
== END 2021-06-10 23:59 | disposition home or self-care (01) ==
LOC: LAB 10:42
PROVIDERS: Family Provider Family Medicine Geriatric Medicine; PCP Family Medicine Geriatric Medicine; Referring Provider Internal Medicine Cardiovascular Disease; Visit Provider Internal Medicine Cardiovascular Disease
DX: I48.20 Chronic atrial fibrillation, unspecified (principal); Z79.01 Long term (current) use of anticoagulants
CPT/HCPCS: 36415; 85610

== ENCOUNTER 2021-06-17 10:53 | Outpatient (CLI) | payer MEDICARE, SELFPAY ==
[2021-06-17 12:11] LABS: International Normalized Ratio 1.5; Prothrombin Time (Protime)PT. 17.4 SECONDS (11.7-14.9)
== END 2021-06-17 23:59 | disposition home or self-care (01) ==
LOC: POLAB3 10:54
PROVIDERS: PCP Family Medicine Geriatric Medicine; Visit Provider Internal Medicine Cardiovascular Disease
DX: I48.20 Chronic atrial fibrillation, unspecified (principal); Z79.01 Long term (current) use of anticoagulants
CPT/HCPCS: 36415; 85610

== ENCOUNTER 2021-06-23 11:10 | Outpatient (CLI) | payer MEDICARE, SELFPAY ==
[2021-06-23 12:35] LABS: Anion Gap 6 (5-15); BUN 12 mg/dL (7-18); BUN/Creat Ratio 10.4 RATIO (10-20); Calcium,Total 9.9 mg/dL (8.5-10.1); Chloride 108 mmol/L (98-107); Creatinine, Serum 1.15 mg/dL (0.70-1.30); EST Glomerular Filtration Rate 64 mL/min (>60); Est Glom Filt Rate - Afr Amer 78 mL/min (>60); Glucose 98 mg/dL (74-106); Potassium 4.5 mmol/L (3.5-5.1); Sodium Level 140 mmol/L (136-145)
[2021-06-23 13:07] LABS: Digoxin Level 0.18 ng/mL (0.80-2.00)
== END 2021-06-23 23:59 | disposition home or self-care (01) ==
LOC: POLAB3 11:11
PROVIDERS: PCP Family Medicine Geriatric Medicine; Visit Provider Family Medicine Geriatric Medicine
DX: E87.6 Hypokalemia (principal); I48.91 Unspecified atrial fibrillation
CPT/HCPCS: 36415; 80048; 80162

== ENCOUNTER 2021-07-01 10:57 | Outpatient (CLI) | payer MEDICARE, SELFPAY ==
--- NOTE | 2021-07-01 11:05 | RAD_ITS ---
INDICATION: for PPM generator change with Dr. Leo EXAMINATION/TECHNIQUE: X-RAY - XR Chest 2 Views COMPARISON: 01/07/2018 CT chest and chest x-ray 06/05/2021. FINDINGS: LINES/DEVICES: None. Cardiac device with 2 leads projects over left chest. Leads in the right atrium and left ventricle. There are at least 2 coronary stents projecting over the heart. There are intact sternotomy wires. LUNGS: Bibasilar peripheral reticulations and mild blunting costophrenic angles likely representing chronic interstitial changes associated emphysema. No pleural effusion. No consolidation, nodule or mass. No pneumothorax. MEDIASTINUM AND CARDIOVASCULAR STRUCTURES: Normal size and contour of the cardiomediastinal silhouette. No evidence of pulmonary vascular congestion. Moderate aortic atherosclerosis. BONES AND SOFT TISSUES: Lateral curvature thoracolumbar spine. Surgical clips right upper quadrant. Advanced degenerative changes bilateral shoulders with intraosseous screw left humeral head region. RAD/Chest PA and Lateral IMPRESSION: 1. Chronic emphysematous and basilar interstitial changes. 2. No evidence of acute cardiopulmonary disease. Electronically Signed: Tramaine Joy DO at 20:20 EST ,
== END 2021-07-01 23:59 | disposition home or self-care (01) ==
LOC: RAD 10:59
PROVIDERS: PCP Family Medicine Geriatric Medicine; Referring Provider Internal Medicine Cardiovascular Disease; Visit Provider Internal Medicine Cardiovascular Disease
DX: I49.5 Sick sinus syndrome (principal); I50.32 Chronic diastolic (congestive) heart failure; I48.20 Chronic atrial fibrillation, unspecified; Z95.0 Presence of cardiac pacemaker; Z79.01 Long term (current) use of anticoagulants
CPT/HCPCS: 36415; 71046; 80048; 81001; 85027; 85610

== ENCOUNTER 2021-07-22 10:49 | Outpatient (RCR) | payer MEDICARE, SELFPAY ==
[2021-06-24 09:48] VITALS: BMI 25.9
[2021-06-25 13:50] LABS: International Normalized Ratio 1.3; Prothrombin Time (Protime)PT. 15.8 SECONDS (11.7-14.9)
[2021-07-01 10:12] LABS: Red Blood Cells-Urine 0 SEEN /hpf (0-5)
[2021-07-01 11:22] LABS: Color, Urine Yellow (Yellow); Glucose, Dipstick Normal (Normal); Hematocrit 38.9 % (40-54); Hemoglobin 12.9 g/dL (13.0-16.5); Ketone-Dipstick Negative (Negative); Leukocyte Esterase-Dipstick 25 /ul (Negative); Mean Corp Hgb Conc 33.2 g/dL (32-36); Mean Corpuscular Hgb 32.7 pg (27.0-32.0); Mean Corpuscular Volume 98.7 fL (80-94); Nitrite-Dipstick Negative (Negative); Occult Blood-Urine Negative /ul (Negative); Platelet Count 315 K/mm3 (150-450); Protein-Dipstick 15 mg/dl (Negative); RBC Distribution Width CV 13.6 % (11.6-14.6); RBC Distribution Width SD 49.8 fl (35.1-43.9); Red Blood Count 3.94 M/mm3 (4.6-6.2); Urine Bilirubin Dipstick Negative (Negative); Urine Clarity Sl. Cloudy (Clear); Urine Urobilinogen Normal (Normal); Urine pH 6.5 (5.0 - 8.0); White Blood Count 7.9 K/mm3 (4.4-11.0)
[2021-07-01 11:30] LABS: Bacteria 1+ /hpf (None Seen); Mucous, Urine RARE /hpf (<or=2+); Squamous Epithelial Cells - UA 0-5 SEEN /hpf (0-5); White Blood Cells 0-5 SEEN /hpf (0-5)
[2021-07-01 11:33] LABS: International Normalized Ratio 1.6; Prothrombin Time (Protime)PT. 18.5 SECONDS (11.7-14.9)
[2021-07-01 11:46] LABS: Anion Gap 6 (5-15); BUN 13 mg/dL (7-18); BUN/Creat Ratio 11.3 RATIO (10-20); Calcium,Total 9.8 mg/dL (8.5-10.1); Chloride 107 mmol/L (98-107); Creatinine, Serum 1.15 mg/dL (0.70-1.30); EST Glomerular Filtration Rate 64 mL/min (>60); Est Glom Filt Rate - Afr Amer 78 mL/min (>60); Glucose 111 mg/dL (74-106); Sodium Level 140 mmol/L (136-145)
[2021-07-08 11:44] LABS: International Normalized Ratio 1.6
[2021-07-15 10:56] LABS: International Normalized Ratio 2.4; Prothrombin Time (Protime)PT. 25.4 SECONDS (11.7-14.9)
[2021-07-22 11:32] LABS: International Normalized Ratio 1.8; Prothrombin Time (Protime)PT. 20.3 SECONDS (11.7-14.9)
== END 2021-07-24 18:00 | disposition home or self-care (01) ==
LOC: LAB 10:49
PROVIDERS: Family Provider Family Medicine Geriatric Medicine; PCP Family Medicine Geriatric Medicine; Referring Provider Internal Medicine Cardiovascular Disease; Visit Provider Internal Medicine Cardiovascular Disease
DX: I48.20 Chronic atrial fibrillation, unspecified (principal); Z79.01 Long term (current) use of anticoagulants
CPT/HCPCS: 36415; 80048; 81001; 85027; 85610

== ENCOUNTER 2021-07-28 10:26 | Day surgery (SDC) | payer MEDICARE, SELFPAY ==
[2021-07-25 08:36] VITALS: BMI 21.2
--- NOTE | 2021-07-26 08:32 | CASEMGMT ---
According to [facility]'s website, the following tertiary facilities are in network: [place], [facility], [facility], [facility] and .
[2021-07-28 10:41] LABS: INR Fingerstick 0.9
--- NOTE | 2021-07-28 12:04 | CL.IE_ITS ---
Patient: SHANTELL RIVERA Study Date: 07/28/2021 Performing: Casey Leo MD : 1935 Age: 86 Gender: male PROCEDURES PERFORMED [id number])BATTERY REMOVAL+REPLACEMENT PACER-DUAL LEAD INDICATIONS Atrial fibrillation and complete heart block PROCEDURE DETAILS The patient was brought to the Catheterization Lab in the postabsorptive nonsedated state. Infor med consent was obtained prior to the procedure. Local anesthetic was given subcutaneously to the le ft upper chest area with Lidocaine 2%. Incision was made to the left upper chest. PPM generator was r emoved. PPM atrial lead (existing) was checked and tested. PPM ventricular lead (existing) was checke d and tested. PPM generator was attached to the lead(s) and inserted into the pocket. Device pocket w as irrigated with antibiotic. Subcutaneous closure was completed with 3-0 Vicryl. Skin closure was co mpleted with 4-0 Vicryl. Steri-strips applied to Lt chest area. The patient tolerated the procedure well. Estimated Blood Loss: < 10 mls IMPLANTED / EX-PLANTED DEVICES IMPLANTED DEVICE(S): PPM Generator - Morning Caregiver: [employer] Model # L111 , Serial # [id number] DEVICE PARAMETERS DEVICE PARAMETERS: Mode - VVIR lower rate - 70 upper rate - 120 rate response on Mode- VVIR Lower rate- 70 Upper rate- 120 CONCLUSIONS / RECOMMENDATIONS Device Conclusions: Successful implantation of a dual chamber pacemaker battery change and replacemen t Device Recommendations: Follow up with Primary Care Physician PROCEDURE MEDICATIONS Fentanyl 50 mcg IV Versed 1 mg IV Oxygen: 2 L/min via nasal cannula Antibiotic given in appropriate timeframe. Ancef 2 Gm IV @ 07/28/2021 11:17:25 Signed By Casey Leo MD On 07/28/2021 12:03:58 Casey Leo MD
[2021-07-29 07:55] LABS: Prothrombin Time Fingerstick 11.2 SEC (11.7-14.9)
== END 2021-07-28 23:59 | disposition home or self-care (01) ==
LOC: CLSP 10:26
PROVIDERS: PCP Family Medicine Geriatric Medicine; Visit Provider Internal Medicine Cardiovascular Disease
DX: I25.810 Atherosclerosis of coronary artery bypass graft(s) without angina pectoris (principal); I50.32 Chronic diastolic (congestive) heart failure; I11.0 Hypertensive heart disease with heart failure; I73.9 Peripheral vascular disease, unspecified; I48.20 Chronic atrial fibrillation, unspecified; I49.5 Sick sinus syndrome; I25.2 Old myocardial infarction; E78.00 Pure hypercholesterolemia, unspecified; E05.90 Thyrotoxicosis, unspecified without thyrotoxic crisis or storm; Z95.0 Presence of cardiac pacemaker; Z95.1 Presence of aortocoronary bypass graft; Z79.01 Long term (current) use of anticoagulants; Z79.899 Other long term (current) drug therapy; Z87.891 Personal history of nicotine dependence
CPT/HCPCS: 33228; 36416; 85610; 99152; 99153; J7040; J7050

== ENCOUNTER 2021-08-19 10:52 | Outpatient (RCR) | payer MEDICARE, SELFPAY ==
[2021-07-25 02:37] VITALS: BMI 25.9
[2021-08-04 11:28] LABS: International Normalized Ratio 1.3; Prothrombin Time (Protime)PT. 15.6 SECONDS (11.7-14.9)
[2021-08-12 10:52] LABS: International Normalized Ratio 1.7; Prothrombin Time (Protime)PT. 19.7 SECONDS (11.7-14.9)
[2021-08-19 11:38] LABS: International Normalized Ratio 1.9; Prothrombin Time (Protime)PT. 21.2 SECONDS (11.7-14.9)
== END 2021-08-19 18:00 | disposition home or self-care (01) ==
LOC: LAB 10:52
PROVIDERS: Family Provider Family Medicine Geriatric Medicine; PCP Family Medicine Geriatric Medicine; Referring Provider Internal Medicine Cardiovascular Disease; Visit Provider Internal Medicine Cardiovascular Disease
DX: I48.20 Chronic atrial fibrillation, unspecified (principal); Z79.01 Long term (current) use of anticoagulants
CPT/HCPCS: 36415; 85610

== ENCOUNTER 2021-09-23 11:02 | Outpatient (RCR) | payer MEDICARE, SELFPAY ==
[2021-08-24 03:31] VITALS: BMI 25.9
[2021-08-26 15:16] LABS: International Normalized Ratio 2.4; Prothrombin Time (Protime)PT. 25.9 SECONDS (11.7-14.9)
[2021-09-09 10:13] LABS: International Normalized Ratio 2.5; Prothrombin Time (Protime)PT. 26.6 SECONDS (11.7-14.9)
[2021-09-23 11:46] LABS: International Normalized Ratio 1.7; Prothrombin Time (Protime)PT. 19.2 SECONDS (11.7-14.9)
== END 2021-09-23 18:00 | disposition home or self-care (01) ==
LOC: LAB 11:02
PROVIDERS: Family Provider Family Medicine Geriatric Medicine; PCP Family Medicine Geriatric Medicine; Referring Provider Internal Medicine Cardiovascular Disease; Visit Provider Internal Medicine Cardiovascular Disease
DX: I48.20 Chronic atrial fibrillation, unspecified (principal); Z79.01 Long term (current) use of anticoagulants
CPT/HCPCS: 36415; 85610

== ENCOUNTER 2021-10-21 09:58 | Outpatient (RCR) | payer MEDICARE, SELFPAY ==
[2021-09-23 20:50] VITALS: BMI 25.9
[2021-09-30 10:44] LABS: International Normalized Ratio 2.2; Prothrombin Time (Protime)PT. 23.7 SECONDS (11.7-14.9)
[2021-10-14 10:43] LABS: International Normalized Ratio 1.4; Prothrombin Time (Protime)PT. 16.9 SECONDS (11.7-14.9)
[2021-10-21 10:50] LABS: International Normalized Ratio 1.8; Prothrombin Time (Protime)PT. 20.8 SECONDS (11.7-14.9)
== END 2021-10-21 23:59 | disposition home or self-care (01) ==
LOC: LAB 09:58
PROVIDERS: Family Provider Family Medicine Geriatric Medicine; PCP Family Medicine Geriatric Medicine; Referring Provider Internal Medicine Cardiovascular Disease; Visit Provider Internal Medicine Cardiovascular Disease
DX: I48.20 Chronic atrial fibrillation, unspecified (principal); Z79.01 Long term (current) use of anticoagulants
CPT/HCPCS: 36415; 85610

== ENCOUNTER 2021-10-21 15:15 | Emergency (ER) | payer MEDICARE, SELFPAY ==
[2021-10-21 15:17] VITALS: BP 151/84; PULSE 116; RESP 28; TEMP 36.8; O2SAT 98; BMI 20.6
--- NOTE | 2021-10-21 15:35 | EDS_ITS ---
HPI History of Present Illness Chief Complaint: Hypertension Informant: patient and EMS Narrative Narrative: Brought in by EMS for the patient home nurse calling due to elevated blood pressure systolic 170s this morning. Normally runs low. He denies headache usha st pain abdominal pain. States has nausea and vomiting today total 5 episodes no hematemesis. No diarrhea. Currently symptoms subsiding. Denies sick contacts. History of coronary disease with bypass subsequent stenting along with chronic A. fib on warfarin. Reviewing records for dose yesterday saw cardiology on follow-up, midodrine was added due to borderline blood pressure however has not started the medication. He denies urinary symptoms. 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 Non-healing non-surgical wound Old myocardial infarction Partial bowel obstruction Peripheral vascular disease Presence of combination internal cardiac defibrillator (ICD) and pacemaker Presence of stent in coronary artery (~02/21/03) Pure hypercholesterolemia Shortness of breath on exertion Thyroid disease Thyroid dysfunction Traumatic ecchymosis of left lower leg Wears dentures Home Medications omeprazole 20 mg capsule,delayed release 20 mg PO DAILY GERD 02/19/15 [History Last Taken 07/09/20] tamsulosin 0.4 mg capsule 0.4 mg PO QHS prostate 07/29/17 [History Last Taken 07/09/20] nitroglycerin 0.4 mg sublingual tablet 0.4 mg sublingual Q5M PRN CHEST PAIN #25 tabs 04/23/20 [Rx Last Taken Unknown] levothyroxine 25 mcg tablet 25 mcg PO DAILY THYROID 07/10/20 [History Last Taken 07/09/20] acetaminophen 650 mg tablet,extended release 650 mg PO BID 12/02/20 [History Last Taken Unknown] warfarin 4 mg tablet 4 mg PO .COMPLEX BLOOD THINNER #135 tabs 02/10/21 [Rx Last Taken Unknown] warfarin 4 mg tablet 6 mg PO .COMPLEX 02/10/21 [History Last Taken Unknown] metoprolol tartrate 25 mg tablet 12.5 mg PO DAILY #90 tabs 08/05/21 [Rx Last Taken Unknown] midodrine 5 mg tablet 5 mg PO BID #60 tabs 10/20/21 [Rx Last Taken Unknown] ondansetron 4 mg disintegrating tablet 4 mg PO Q6H PRN nausea and vomiting #10 tabs 10/21/21 [Rx Last Taken Unknown] Allergy/AdvReac Type Severity Reaction Status Date / Time No Known Allergies Allergy Verified 10/21/21 15:22 Family History Father Lung cancer CVA (cerebral vascular accident) Brother Sudden cardiac Surgical History Eyelid retraction unspecified eye, unspecified lid H/O hernia repair H/O myringoplasty History of cardiac catheterization History of coronary artery stent placement History of two vessel coronary artery bypass graft (~1997) Hx of CABG Hx of cholecystectomy Presence of coronary angioplasty implant and graft (~02/21/03) ureteral stent Social History Smoking Status: Former smoker how long ago did patient quit smokin years alcohol intake: never substance use type: does not use caffeine: No ROS ROS ED Constitutional Constitutional ED: Denies chills, fever(s) or sweats Eyes Eyes: Denies change in vision ENT ENT ED: Denies dysphagia or sore throat Cardiovascular Cardiovascular: Denies chest pain, leg edema, palpitations or racing heartbeat Respiratory/Chest Respiratory/Chest: Denies cough, dyspnea or dyspnea on exertion Gastrointestinal Gastrointestinal: Reports nausea and vomiting; Denies abdominal pain or diarrhea Genitourinary Genitourinary ED: Denies dysuria, hematuria or urinary frequency Musculoskeletal Musculoskeletal: Denies back pain, extremity pain or neck pain Integumentary Denies rash or wounds Neurologic Neurologic: Denies headache(s), paresthesias or weakness EXAM Physical Exam Const Vital Signs: 10/21/21 15:17 10/21/21 15:20 10/21/21 16:08 Temperature 98.3 F Temperature Source Oral Pulse Rate 116 H 98 Respiratory Rate 28 H 16 Respiratory Effort Normal Respiratory Pattern Normal Blood Pressure 151/84 H 129/74 H Blood Pressure Mean 106 92 Pulse Ox 98 98 Oxygen Delivery Method Room Air Room Air 10/21/21 17:01 10/21/21 17:27 Temperature Temperature Source Pulse Rate 99 100 Respiratory Rate 13 19 H Respiratory Effort Respiratory Pattern Blood Pressure 122/76 H 139/92 H Blood Pressure Mean 91 Pulse Ox 97 Oxygen Delivery Method Positive well nourished and well developed General Appearance ED: well developed and NAD HEENT HEENT Narrative: Mild dry mucosal membranes. normocephalic and atraumatic Eyes PERRL, EOMs intact bilaterally and conjunctivae normal General Eye ED: Yes normal appearance of both eyes Neck no lymphadenopathy and supple General: Negative for tenderness Chest Wall Chest: Negative for tenderness Resp normal respiratory effort and normal air movement Effort and Inspection: symmetric chest movement; Negative for respiratory distress Cardio no murmurs Rate: tachycardic Rhythm: abnormal rhythm Peripheral Pulses: pulses 2+ throughout GI normal to inspection, nondistended, normoactive bowel sounds and non-tender Palpation: Negative for guarding or rebound tenderness present Back/Spine no CVA tenderness and no thoracic nor lumbar tenderness Extremity normal to inspection General Extremety ED: Negative for edema or tenderness General Extremity: Negative for edema Neuro oriented x3 and no sensory deficits noted Sensorium / Orientation: awake and alert Skin no rashes or lesions noted and no wounds MDM MDM MDM Narrative Medical decision making narrative: Patient nontoxic mild dry mucosal membranes on exam. IVs placed given IV fluids. EKG atrial fibrillation chronic history of this. Heart rate initially was 110s during my evaluation with his emesis possibly of thrown off his morning metoprolol. I ordered for IV Lopressor however heart rate went down to 90s therefore this is not needed. Vomiting I checked labs all stable with his creatinine INR slightly subtherapeutic at 1.8. Clinically improved blood pressure improved down to 120 systolic without intervention. He will monitor symptoms. Prescription for Zofran for home use he will continue oral fluids for hydration. All questions were answered. Lab Data Attestation: I reviewed the patient's lab results. Labs: Laboratory Results - last 24 hr 10/21/21 10/21/21 10/21/21 16:05 16:05 16:05 WBC 8.2 RBC 4.21 L Hgb 13.2 Hct 38.8 L MCV 92.2 MCH 31.4 MCHC 34.0 RDW Std Deviation 45.0 H RDW Coeff of Del 13.2 Plt Count 165 MPV 9.3 Immature Gran % (Auto) 0.200 Neut % (Auto) 87.2 H Lymph % (Auto) 7.2 L [place] % (Auto) 4.9 Eos % (Auto) 0.1 Baso % (Auto) 0.4 Absolute Neuts (auto) 7.1 Absolute Lymphs (auto) 0.59 L Nucleated RBC % 0 Differential Comment SCANNED PT 20.8 H INR 1.8 Sodium 142 Potassium 4.4 Chloride 108 H Carbon Dioxide 28.0 Anion Gap 6 BUN 19 H Creatinine 1.12 Estim Creat Clear Calc 40.72 Est GFR (MDRD) Af Amer 80 Est GFR (MDRD) Non-Af 66 BUN/Creatinine Ratio 17.0 Glucose 111 H Calcium 9.9 EKG Initial EKG: Attestation: I personally reviewed and interpreted this EKG as follows: Comments: Atrial fibrillation rate of 117, no ST or T wave changes, PVCs noted. Discharge Plan Triage Chief Complaint: Hypertension ED Provider: Nas Mcelroy Dx/Rx/DC Orders Clinical Impression: Hypertension, Atrial fibrillation, chronic, Nausea & vomiting Instructions: Controlling High Blood Pressure, ED AFIB, ED Diet for Vomiting or ... Prescriptions: New ondansetron 4 mg tablet,disintegrating 4 mg PO Q6H PRN (Reason: nausea and vomiting) Qty: 10 0RF No Action midodrine 5 mg tablet 5 mg PO BID Qty: 60 12RF Rx Instructions: do not give last dose of day after 6PM or within 4 hrs of bedtime omeprazole 20 MG capsule 20 mg PO DAILY Label Comments: reflux tamsulosin 0.4 MG capsule,extended release 24hr 0.4 mg PO QHS levothyroxine 25 MCG tablet 25 mcg PO DAILY acetaminophen 650 mg tablet extended release 650 mg PO BID Label Comments: TAKE 2 TABLETS THREE TIMES DAILY nitroglycerin 0.4 mg tablet, sublingual 0.4 mg sublingual Q5M PRN (Reason: CHEST PAIN) Qty: 25 3RF Label Comments: chest pain Rx Instructions: 1 tablet sublingual every 5 minutes x 3 for chest pain, if unresolved call 911 warfarin 4 mg tablet 4 mg PO .COMPLEX Qty: 135 3RF Hold Instructions: Resume on 12/12/20. Protocol: Dose Management Condition: Wednesday Dose/Route: 4 mg Instruction: 1 x 4 mg tablet Condition: Wednesday Dose/Route: 4 mg Instruction: 1 x 4 mg tablet Condition: Wednesday Dose/Route: 6 mg Instruction: 1.5 x 4 mg tablets Condition: Wednesday Dose/Route: 6 mg Instruction: 1.5 x 4 mg tablets Condition: Dose/Route: 6 mg Instruction: 1.5 x 4 mg tablets Condition: Wednesday Dose/Route: 6 mg Instruction: 1.5 x 4 mg tablets Condition: Wednesday Dose/Route: 4 mg Instruction: 1 x 4 mg tablet Protocol Text: Adjustment Start Date: Wednesday10/21/21 INR Value: 1.8 INR Date: 10/21/21 Recheck Date: 10/28/21 Label Comments: TAKE 1 1/2 TABLETS BY MOUTH WEDNESDAY THRU WEDNESDAY AND 1 TABLET WEDNESDAY, WEDNESDAY AND WEDNESDAY OR DIRECTED Rx Instructions: as directed per INR results warfarin 4 mg tablet 6 mg PO .COMPLEX Hold Instructions: Resume on 12/12/20. Protocol: Dose Management Condition: Wednesday Dose/Route: 4 mg Instruction: 1 x 4 mg tablet Condition: Wednesday Dose/Route: 4 mg Instruction: 1 x 4 mg tablet Condition: Wednesday Dose/Route: 6 mg Instruction: 1.5 x 4 mg tablets Condition: Wednesday Dose/Route: 6 mg Instruction: 1.5 x 4 mg tablets Condition: Dose/Route: 6 mg Instruction: 1.5 x 4 mg tablets Condition: Wednesday Dose/Route: 6 mg Instruction: 1.5 x 4 mg tablets Condition: Wednesday Dose/Route: 4 mg Instruction: 1 x 4 mg tablet Protocol Text: Adjustment Start Date: Wednesday10/21/21 INR Value: 1.8 INR Date: 10/21/21 Recheck Date: 10/28/21 Rx Instructions: as directed metoprolol tartrate 25 mg tablet 12.5 mg PO DAILY Qty: 90 3RF Primary Care Provider: Jono Harrington Chi Referrals: Jono Harrington Chi, MD [Primary Care Provider] - 3-5 Days if not improving Disposition Disposition: Home, Self Care Discharge Date/Time: 10/21/21 17:28
--- NOTE | 2021-10-21 15:35 | EKG12_ITS ---
Test Reason : Blood Pressure : / mmHG Vent. Rate : 117 BPM Atrial Rate : 156 BPM P-R Int : 000 ms QRS Dur : 104 ms QT Int : 344 ms P-R-T Axes : 000 -03 -53 degrees QTc Int : 479 ms Atrial fibrillation with occasional ventricular-paced complexes and with premature ventricular or glory rrantly conducted complexes Nonspecific ST and T wave abnormality Abnormal ECG Confirmed by SAMRA TABOR, DYLAN ([id number]), business editor LEESA MARTINEZ ([id number]) on 10/23/2021 11:00:41 AM Referred By: JANELL Confirmed By:DYLAN CABRALES MD
[2021-10-21] MEDS: Ondansetron 4 MG/2 ML Vial IV (16:03)
[2021-10-21 16:08] VITALS: BP 129/74; PULSE 98; RESP 16; O2SAT 98
[2021-10-21 16:14] LABS: Absolute Lymphocyte Count 0.59 X10^3/uL (0.83-4.51); Absolute Neutrophil Count 7.1 X10^3/uL (2.0-7.7); Basophil# 0.03 X10^3/uL; Basophil% 0.4 % (0-1); Eosinophil# 0.01 X10^3/uL; Eosinophils% 0.1 % (0-5); Hematocrit 38.8 % (40-54); Hemoglobin 13.2 g/dL (13.0-16.5); Lymphocyte # 0.59 X10^3/ul (0.83-4.51); Lymphocyte % 7.2 % (19-41); Mean Corpuscular Hgb 31.4 pg (27.0-32.0); Mean Corpuscular Volume 92.2 fL (80-94); Mean Platelet Vol. 9.3 fl (6.2-12.0); Monocyte% 4.9 % (0-10); NRBC Flagged by Analyzer 0 % (0-5); Neutrophil % 87.2 % (47-70); POSITIVE DIFFERENTIAL YES; Platelet Count 165 K/mm3 (150-450); RBC Distribution Width CV 13.2 % (11.6-14.6); Red Blood Count 4.21 M/mm3 (4.6-6.2); White Blood Count 8.2 K/mm3 (4.4-11.0)
[2021-10-21 16:19] LABS: International Normalized Ratio 1.8; Prothrombin Time (Protime)PT. 20.8 SECONDS (11.7-14.9)
[2021-10-21 16:30] LABS: Differential Indicated SCAN CRITERIA MET
[2021-10-21 16:42] LABS: Anion Gap 6 (5-15); BUN 19 mg/dL (7-18); Calcium,Total 9.9 mg/dL (8.5-10.1); Chloride 108 mmol/L (98-107); Creatinine, Serum 1.12 mg/dL (0.70-1.30); EST Glomerular Filtration Rate 66 mL/min (>60); Est Glom Filt Rate - Afr Amer 80 mL/min (>60); Estimated Creatinine Clearance 40.72 ml/min; Glucose 111 mg/dL (74-106); Potassium 4.4 mmol/L (3.5-5.1); Sodium Level 142 mmol/L (136-145)
[2021-10-21 17:01] VITALS: BP 122/76; PULSE 99; RESP 13
[2021-10-21 17:24] LABS: Differential Comment SCANNED
[2021-10-21 17:27] VITALS: BP 139/92; PULSE 100; RESP 19; O2SAT 97
== END 2021-10-21 17:28 | disposition home or self-care (01) ==
PROVIDERS: Emergency Provider Emergency Medicine; PCP Family Medicine Geriatric Medicine; Visit Provider Emergency Medicine
DX: I10 Essential (primary) hypertension (principal); I48.20 Chronic atrial fibrillation, unspecified; I25.10 Atherosclerotic heart disease of native coronary artery without angina pectoris; I25.2 Old myocardial infarction; E78.00 Pure hypercholesterolemia, unspecified; E05.90 Thyrotoxicosis, unspecified without thyrotoxic crisis or storm; K21.9 Gastro-esophageal reflux disease without esophagitis; M19.90 Unspecified osteoarthritis, unspecified site; Z95.0 Presence of cardiac pacemaker; Z95.5 Presence of coronary angioplasty implant and graft; Z79.01 Long term (current) use of anticoagulants; Z79.899 Other long term (current) drug therapy; Z87.891 Personal history of nicotine dependence
CPT/HCPCS: 36415; 80048; 85025; 85610; 93005; 96361; 96374; 99285; J7040; A4216; J2405

== ENCOUNTER → 2021-11-03 | Outpatient (CLI) | payer MEDICARE, SELFPAY ==
[2021-11-03 12:28] LABS: Absolute Lymphocyte Count 1.83 X10^3/uL (0.83-4.51); Absolute Neutrophil Count 3.9 X10^3/uL (2.0-7.7); Basophil# 0.06 X10^3/uL; Basophil% 0.9 % (0-1); Eosinophil# 0.07 X10^3/uL; Eosinophils% 1.1 % (0-5); Hematocrit 36.8 % (40-54); Lymphocyte # 1.83 X10^3/ul (0.83-4.51); Lymphocyte % 28.6 % (19-41); Mean Corp Hgb Conc 32.6 g/dL (32-36); Mean Corpuscular Hgb 30.8 pg (27.0-32.0); Mean Corpuscular Volume 94.4 fL (80-94); Mean Platelet Vol. 9.7 fl (6.2-12.0); Monocyte# 0.54 X10^3/uL; Monocyte% 8.5 % (0-10); NRBC Flagged by Analyzer 0 % (0-5); Neutrophil # 3.87 X10^3/uL (2.7-7.7); Neutrophil % 60.6 % (47-70); Platelet Count 218 K/mm3 (150-450); RBC Distribution Width CV 13.4 % (11.6-14.6); RBC Distribution Width SD 46.5 fl (35.1-43.9); White Blood Count 6.4 K/mm3 (4.4-11.0)
[2021-11-03 13:03] LABS: ALB/GLOB Ratio 1.1 RATIO (0.9-2.4); AST(SGOT) 13 U/L (15-37); Alanine Aminotransfer ALT/SGPT 14 U/L (16-61); Albumin, Serum 3.3 g/dL (3.2-5.0); Alkaline Phosphatase 51 U/L (45-117); Anion Gap 10 (5-15); BUN 18 mg/dL (7-18); BUN/Creat Ratio 15.4 RATIO (10-20); Calcium,Total 9.3 mg/dL (8.5-10.1); Chloride 107 mmol/L (98-107); Creatinine, Serum 1.17 mg/dL (0.70-1.30); EST Glomerular Filtration Rate 63 mL/min (>60); Est Glom Filt Rate - Afr Amer 76 mL/min (>60); Glucose 101 mg/dL (74-106); Potassium 3.9 mmol/L (3.5-5.1); Protein, Total 6.3 g/dL (6.4-8.2); Sodium Level 143 mmol/L (136-145)
[2021-11-03 13:11] LABS: Digoxin Level 0.07 ng/mL (0.80-2.00)
[2021-11-03 13:22] LABS: Vitamin D,25 Hydroxy 30.5 ng/mL
== END | disposition home or self-care (01) ==
LOC: POLAB3 10:52
PROVIDERS: PCP Family Medicine Geriatric Medicine; Visit Provider Family Medicine Geriatric Medicine
DX: I10 Essential (primary) hypertension (principal); E55.9 Vitamin D deficiency, unspecified; Z79.899 Other long term (current) drug therapy
CPT/HCPCS: 36415; 80053; 80162; 82306; 84443; 85025

== ENCOUNTER 2021-11-18 10:46 | Outpatient (RCR) | payer MEDICARE, SELFPAY ==
[2021-10-24 07:08] VITALS: BMI 25.9
[2021-10-28 11:01] LABS: International Normalized Ratio 1.5; Prothrombin Time (Protime)PT. 18.2 SECONDS (11.7-14.9)
[2021-11-04 10:54] LABS: International Normalized Ratio 1.4; Prothrombin Time (Protime)PT. 16.7 SECONDS (11.7-14.9)
[2021-11-04 11:35] LABS: Anion Gap 5 (5-15); BUN 15 mg/dL (7-18); BUN/Creat Ratio 13.5 RATIO (10-20); Calcium,Total 9.2 mg/dL (8.5-10.1); Chloride 108 mmol/L (98-107); Creatinine, Serum 1.11 mg/dL (0.70-1.30); EST Glomerular Filtration Rate 67 mL/min (>60); Est Glom Filt Rate - Afr Amer 81 mL/min (>60); Glucose 96 mg/dL (74-106); Potassium 3.8 mmol/L (3.5-5.1); Sodium Level 140 mmol/L (136-145)
[2021-11-11 10:46] LABS: Prothrombin Time (Protime)PT. 22.7 SECONDS (11.7-14.9)
[2021-11-18 11:39] LABS: Prothrombin Time (Protime)PT. 30.8 SECONDS (11.7-14.9)
== END 2021-11-23 02:46 | disposition home or self-care (01) ==
LOC: LAB 10:46
PROVIDERS: Physician Assistant Medical; Family Provider Family Medicine Geriatric Medicine; PCP Family Medicine Geriatric Medicine; Referring Provider Internal Medicine Cardiovascular Disease; Visit Provider Internal Medicine Cardiovascular Disease
DX: I48.20 Chronic atrial fibrillation, unspecified (principal); Z79.01 Long term (current) use of anticoagulants
CPT/HCPCS: 36415; 80048; 85610

== ENCOUNTER 2021-12-16 10:10 | Outpatient (RCR) | payer MEDICARE, SELFPAY ==
[2021-11-23 02:46] VITALS: BMI 25.9
[2021-11-25 10:08] LABS: International Normalized Ratio 3.2; Prothrombin Time (Protime)PT. 32.7 SECONDS (11.7-14.9)
[2021-12-02 10:49] LABS: Prothrombin Time (Protime)PT. 30.8 SECONDS (11.7-14.9)
[2021-12-09 11:00] LABS: International Normalized Ratio 1.8; Prothrombin Time (Protime)PT. 20.6 SECONDS (11.7-14.9)
[2021-12-16 10:46] LABS: International Normalized Ratio 2.5; Prothrombin Time (Protime)PT. 26.7 SECONDS (11.7-14.9)
== END 2021-12-16 18:00 | disposition home or self-care (01) ==
LOC: LAB 10:10
PROVIDERS: Family Provider Family Medicine Geriatric Medicine; PCP Family Medicine Geriatric Medicine; Referring Provider Internal Medicine Cardiovascular Disease; Visit Provider Internal Medicine Cardiovascular Disease
DX: I48.20 Chronic atrial fibrillation, unspecified (principal); Z79.01 Long term (current) use of anticoagulants
CPT/HCPCS: 36415; 85610

== ENCOUNTER → 2021-12-25 | Outpatient (CLI) | payer MEDICARE, SELFPAY ==
[2021-12-25 16:25] LABS: Digoxin Level 0.11 ng/mL (0.80-2.00)
== END | disposition home or self-care (01) ==
LOC: POLAB3 13:30
PROVIDERS: PCP Family Medicine Geriatric Medicine; Visit Provider Family Medicine Geriatric Medicine
DX: R11.2 Nausea with vomiting, unspecified (principal)
CPT/HCPCS: 36415; 80162

== ENCOUNTER 2021-12-30 09:34 | Outpatient (RCR) | payer MEDICARE, SELFPAY ==
[2021-12-24 23:14] VITALS: BMI 25.9
[2021-12-30 11:16] LABS: International Normalized Ratio 2.4; Prothrombin Time (Protime)PT. 25.7 SECONDS (11.7-14.9)
== END 2021-12-30 18:00 | disposition home or self-care (01) ==
LOC: LAB 09:34
PROVIDERS: Family Provider Family Medicine Geriatric Medicine; PCP Family Medicine Geriatric Medicine; Referring Provider Internal Medicine Cardiovascular Disease; Visit Provider Internal Medicine Cardiovascular Disease
DX: I48.20 Chronic atrial fibrillation, unspecified (principal); Z79.01 Long term (current) use of anticoagulants
CPT/HCPCS: 36415; 85610

== ENCOUNTER 2022-01-13 16:22 | Inpatient (IN) | payer MEDICARE, SELFPAY ==
[2022-01-13] VITALS (7 sets, daily range): BP systolic 111–131; BP diastolic 61–86; PULSE 85–118; RESP 15–24; TEMP 36.4–37.3; O2SAT 93–100; BMI 20.3; BMI 20.2
--- NOTE | 2022-01-13 16:31 | CT_ITS ---
EXAMINATION : Head CT w/out contrast HISTORY : fall -- unequal pupils COMPARISON : None. TECHNIQUE : Multiple contiguous axial images were obtained from the skull base to the vertex without intravenous contrast. A radiation dose optimization technique was used for this scan. FINDINGS : There is no evidence for acute intracranial hemorrhage, mass effect, or midline shift. There is no extra-axial fluid collection. There are periventricular white matter changes consistent with chronic microvascular ischemic disease. There is sulcal widening and ventricular enlargement consistent with cerebral atrophy. There is normal millard-white differentiation, without CT evidence of acute ischemia or infarct. The skull base and calvarium are unremarkable. The orbits are unremarkable. The paranasal sinuses are clear. The mastoid air cells are well-aerated. The soft tissues are unremarkable. CT/Brain/Head without Contrast IMPRESSION: No acute intracranial abnormality. Chronic involutional and ischemic changes of the brain. Electronically Signed: Mu Kendall MD at 17:13 EDT ,
--- NOTE | 2022-01-13 17:09 | EDS_ITS ---
HPI HPI - Fall History of Present Illness Chief Complaint: Fall Informant: patient Occured/Mechanism Occurred: Today Narrative Narrative: Patient presents after fall from bed. Patient tells me that he was too weak to get himself up so he rolled out of bed onto the floor to crawl into the living room. He reportedly has had increased falls yesterday. He complains of some mild pain over his forehead where he has an abrasion. He states that injury was from when he lost his balance while urinating and fell forward striking his head on the wall. Patient does reportedly live alone. He has not taken any of his medications today. Patient is on Coumadin secondary to a history of A. fib. 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 Non-healing non-surgical wound Old myocardial infarction Partial bowel obstruction Peripheral vascular disease Presence of combination internal cardiac defibrillator (ICD) and pacemaker Presence of stent in coronary artery (~02/21/03) Pure hypercholesterolemia Shortness of breath on exertion Thyroid disease Thyroid dysfunction Traumatic ecchymosis of left lower leg Wears dentures Home Medications omeprazole 20 mg capsule,delayed release 20 mg PO DAILY GERD 02/19/15 [History Last Taken 07/09/20] tamsulosin 0.4 mg capsule 0.4 mg PO QHS prostate 07/29/17 [History Last Taken 07/09/20] nitroglycerin 0.4 mg sublingual tablet 0.4 mg sublingual Q5M PRN CHEST PAIN #25 tabs 04/23/20 [Rx Last Taken Unknown] levothyroxine 25 mcg tablet 25 mcg PO DAILY THYROID 07/10/20 [History Last Taken 07/09/20] acetaminophen 650 mg tablet,extended release 650 mg PO BID 12/02/20 [History Last Taken Unknown] warfarin 4 mg tablet 4 mg PO .COMPLEX BLOOD THINNER #135 tabs 02/10/21 [Rx Last Taken Unknown] warfarin 4 mg tablet 6 mg PO .COMPLEX 02/10/21 [History Last Taken Unknown] metoprolol tartrate 25 mg tablet 12.5 mg PO DAILY #90 tabs 08/05/21 [Rx Last Taken Unknown] midodrine 5 mg tablet 5 mg PO BID #60 tabs 10/20/21 [Rx Last Taken Unknown] ondansetron 4 mg disintegrating tablet 4 mg PO Q6H PRN nausea and vomiting #10 tabs 10/21/21 [Rx Last Taken Unknown] Allergy/AdvReac Type Severity Reaction Status Date / Time No Known Allergies Allergy Verified 01/13/22 16:23 Family History Father Lung cancer CVA (cerebral vascular accident) Brother Sudden cardiac Surgical History Eyelid retraction unspecified eye, unspecified lid H/O hernia repair H/O myringoplasty History of cardiac catheterization History of coronary artery stent placement History of two vessel coronary artery bypass graft (~1997) Hx of CABG Hx of cholecystectomy Presence of coronary angioplasty implant and graft (~02/21/03) ureteral stent Social History Smoking Status: Former smoker how long ago did patient quit smokin years alcohol intake: never substance use type: does not use caffeine: No ROS ROS ED Constitutional Constitutional ED: Denies chills or fever(s) Eyes Eyes: Denies change in vision or discharge from eye(s) ENT ENT ED: Denies discharge from eye(s), rhinorrhea or sore throat Cardiovascular Cardiovascular: Denies chest pain or palpitations Respiratory/Chest Respiratory/Chest: Denies cough or dyspnea Gastrointestinal Gastrointestinal: Denies abdominal pain, nausea or vomiting Genitourinary Genitourinary ED: Denies dysuria Musculoskeletal Musculoskeletal: Denies back pain or extremity pain Integumentary Reports Abrasions; Denies rash Neurologic Neurologic: Reports headache(s) and weakness Psychiatric Psychiatric: Denies anxiety or depression Allergic/Immunologic Allergic/Immunologic ED: Denies lip swelling or urticaria EXAM Physical Exam Const Vital Signs: 01/13/22 16:23 01/13/22 16:59 01/13/22 16:59 Temperature 97.6 F L Temperature Source Temporal Pulse Rate 85 118 H Respiratory Rate 17 18 Respiratory Effort Normal Non-Labored Respiratory Depth Normal Respiratory Pattern Normal Blood Pressure 111/70 130/84 H Blood Pressure Mean 83 99 Pulse Ox 97 Oxygen Delivery Method Room Air Room Air 01/13/22 18:20 Temperature Temperature Source Pulse Rate 99 Respiratory Rate 15 Respiratory Effort Respiratory Depth Respiratory Pattern Blood Pressure 131/86 H Blood Pressure Mean 101 Pulse Ox 93 Oxygen Delivery Method Room Air Positive well nourished and well developed General Appearance ED: well developed HEENT Reports normocephalic HEENT Narrative: Superficial abrasion over the anterior forehead. Eyes PERRL and EOMs intact bilaterally Neck supple Neck Narrative: No C-spine tenderness. Chest Wall inspection of chest normal and palpation of chest normal Resp normal respiratory effort and clear to auscultation bilaterally Cardio Rate: tachycardic Rhythm: abnormal rhythm irregularly irregular GI normal to inspection, nondistended, normoactive bowel sounds Palpation: soft Extremity normal to inspection Neuro oriented x3 Neuro Narrative: No focal neurologic deficits. Sensorium / Orientation: alert Psych mental status grossly normal MDM MDM MDM Narrative Medical decision making narrative: Patient placed on cardiac cath rn. EKG, lab work, urinalysis obtained. Head CT ordered. Lab Data Attestation: I reviewed the patient's lab results. Labs: Laboratory Results - last 24 hr 01/13/22 01/13/22 01/13/22 16:55 16:55 16:55 WBC 14.9 H RBC 3.63 L Hgb 11.3 L Hct 33.5 L MCV 92.3 MCH 31.1 MCHC 33.7 RDW Std Deviation 45.3 H RDW Coeff of Del 13.5 Plt Count 172 MPV 9.9 Immature Gran % (Auto) 0.500 Neut % (Auto) 88.8 H Lymph % (Auto) 4.9 L Bullock % (Auto) 5.6 Eos % (Auto) 0.0 Baso % (Auto) 0.2 Absolute Neuts (auto) 13.2 H Absolute Lymphs (auto) 0.73 L Nucleated RBC % 0 PT 39.3 H INR 4.1 H* Sodium 141 Potassium 4.4 Chloride 109 H Carbon Dioxide 25.0 Anion Gap 7 BUN 21 H Creatinine 1.15 Estim Creat Clear Calc 39.17 Est GFR (MDRD) Af Amer 78 Est GFR (MDRD) Non-Af 64 BUN/Creatinine Ratio 18.3 Glucose 106 Calcium 9.6 Urine Color Urine Clarity Urine pH Ur Specific [place] Urine Protein Urine Glucose (UA) Urine Ketones Urine Occult Blood Urine Nitrite Urine Bilirubin Urine Urobilinogen Ur Leukocyte Esterase Urine RBC Urine WBC Ur Squamous Epith Cells Urine Bacteria Urine Mucus 01/13/22 17:40 WBC RBC Hgb Hct MCV MCH MCHC RDW Std Deviation RDW Coeff of Del Plt Count MPV Immature Gran % (Auto) Neut % (Auto) Lymph % (Auto) Bullock % (Auto) Eos % (Auto) Baso % (Auto) Absolute Neuts (auto) Absolute Lymphs (auto) Nucleated RBC % PT INR Sodium Potassium Chloride Carbon Dioxide Anion Gap BUN Creatinine Estim Creat Clear Calc Est GFR (MDRD) Af Amer Est GFR (MDRD) Non-Af BUN/Creatinine Ratio Glucose Calcium Urine Color Yellow Urine Clarity Clear Urine pH 7.0 Ur Specific [place] 1.005 Urine Protein 15 H Urine Glucose (UA) Normal Urine Ketones Negative Urine Occult Blood 150 H Urine Nitrite Negative Urine Bilirubin Negative Urine Urobilinogen Normal Ur Leukocyte Esterase 25 H Urine RBC 10-25 SEEN Urine WBC 0-5 SEEN Ur Squamous Epith Cells 0-5 SEEN Urine Bacteria RARE Urine Mucus 0 SEEN Radiography Diagnostic Testing: Clinical Impression(s) from Imaging Studies Brain CT 01/13/22 16:31 IMPRESSION: No acute intracranial abnormality. Chronic involutional and ischemic changes of the brain. Electronically Signed: Mu Kendall MD at 17:13 EDT , EKG Initial EKG: Attestation: I personally reviewed and interpreted this EKG as follows: Interpretation: Atrial Fibrillation (A. fib at 102. Chronic T wave changes unchanged when compared to prior.) Treatment and Re-Evaluation Narrative: CBC reveals leukocytosis with a white count of 14.9 and 88% neutrophils. INR is supratherapeutic at 4.1. Chemistry studies unremarkable. Urinalysis reveals 10-25 red cells but no overt signs of infection. Head CT reveals chronic changes with no evidence of acute bleed. With patient having frequent falls and living alone I have significant concerns about his safety. I have family welfare social work professor went and speak with him. He states that he has been to the TCU in the past and feels that that is probably a good choice at this time with his increased falls. I will speak with hospitalist regarding admission for TCU placement. Discharge Plan Triage Chief Complaint: Fall ED Provider: Brisa Umana Dx/Rx/DC Orders Clinical Impression: Falls frequently, Supratherapeutic INR, Leukocytosis Prescriptions: No Action midodrine 5 mg tablet 5 mg PO BID Qty: 60 12RF Rx Instructions: do not give last dose of day after 6PM or within 4 hrs of bedtime omeprazole 20 MG capsule 20 mg PO DAILY Label Comments: reflux tamsulosin 0.4 MG capsule,extended release 24hr 0.4 mg PO QHS levothyroxine 25 MCG tablet 25 mcg PO DAILY acetaminophen 650 mg tablet extended release 650 mg PO BID Label Comments: TAKE 2 TABLETS THREE TIMES DAILY ondansetron 4 mg tablet,disintegrating 4 mg PO Q6H PRN (Reason: nausea and vomiting) Qty: 10 0RF nitroglycerin 0.4 mg tablet, sublingual 0.4 mg sublingual Q5M PRN (Reason: CHEST PAIN) Qty: 25 3RF Label Comments: chest pain Rx Instructions: 1 tablet sublingual every 5 minutes x 3 for chest pain, if unresolved call 911 warfarin 4 mg tablet 4 mg PO .COMPLEX Qty: 135 3RF Hold Instructions: Resume on 12/12/20. Protocol: Dose Management Condition: Wednesday Dose/Route: 6 mg Instruction: 1.5 x 4 mg tablets Condition: Wednesday Dose/Route: 6 mg Instruction: 1.5 x 4 mg tablets Condition: Wednesday Dose/Route: 4 mg Instruction: 1 x 4 mg tablet Condition: Wednesday Dose/Route: 6 mg Instruction: 1.5 x 4 mg tablets Condition: Dose/Route: 6 mg Instruction: 1.5 x 4 mg tablets Condition: Wednesday Dose/Route: 6 mg Instruction: 1.5 x 4 mg tablets Condition: Wednesday Dose/Route: 6 mg Instruction: 1.5 x 4 mg tablets Protocol Text: Adjustment Start Date: Wednesday12/30/21 INR Value: 2.4 INR Date: 12/30/21 Recheck Date: 01/06/22 Label Comments: TAKE 1 1/2 TABLETS BY MOUTH WEDNESDAY THRU WEDNESDAY AND 1 TABLET WEDNESDAY, WEDNESDAY AND WEDNESDAY OR DIRECTED Rx Instructions: as directed per INR results warfarin 4 mg tablet 6 mg PO .COMPLEX Hold Instructions: Resume on 12/12/20. Protocol: Dose Management Condition: Wednesday Dose/Route: 6 mg Instruction: 1.5 x 4 mg tablets Condition: Wednesday Dose/Route: 6 mg Instruction: 1.5 x 4 mg tablets Condition: Wednesday Dose/Route: 4 mg Instruction: 1 x 4 mg tablet Condition: Wednesday Dose/Route: 6 mg Instruction: 1.5 x 4 mg tablets Condition: Dose/Route: 6 mg Instruction: 1.5 x 4 mg tablets Condition: Wednesday Dose/Route: 6 mg Instruction: 1.5 x 4 mg tablets Condition: Wednesday Dose/Route: 6 mg Instruction: 1.5 x 4 mg tablets Protocol Text: Adjustment Start Date: Wednesday12/30/21 INR Value: 2.4 INR Date: 12/30/21 Recheck Date: 01/06/22 Rx Instructions: as directed metoprolol tartrate 25 mg tablet 12.5 mg PO DAILY Qty: 90 3RF Primary Care Provider: Jono Harrington Chi Referrals: Jono Harrington Chi, MD [Primary Care Provider] - Disposition Disposition: Acute Care Hospital [facility]
[2022-01-13 17:14] LABS: Prothrombin Time (Protime)PT. 39.3 SECONDS (11.7-14.9)
[2022-01-13 17:16] LABS: International Normalized Ratio 4.1
[2022-01-13] MEDS: Metoprolol Tartrate 5 MG/5 ML Vial IV (17:29)
[2022-01-13 17:32] LABS: Absolute Lymphocyte Count 0.73 X10^3/uL (0.83-4.51); Absolute Neutrophil Count 13.2 X10^3/uL (2.0-7.7); Basophil# 0.03 X10^3/uL; Basophil% 0.2 % (0-1); Hematocrit 33.5 % (40-54); Hemoglobin 11.3 g/dL (13.0-16.5); Lymphocyte # 0.73 X10^3/ul (0.83-4.51); Lymphocyte % 4.9 % (19-41); Mean Corp Hgb Conc 33.7 g/dL (32-36); Mean Corpuscular Hgb 31.1 pg (27.0-32.0); Mean Corpuscular Volume 92.3 fL (80-94); Mean Platelet Vol. 9.9 fl (6.2-12.0); Monocyte# 0.83 X10^3/uL; Monocyte% 5.6 % (0-10); NRBC Flagged by Analyzer 0 % (0-5); Neutrophil # 13.18 X10^3/uL (2.7-7.7); Neutrophil % 88.8 % (47-70); Platelet Count 172 K/mm3 (150-450); RBC Distribution Width CV 13.5 % (11.6-14.6); RBC Distribution Width SD 45.3 fl (35.1-43.9); Red Blood Count 3.63 M/mm3 (4.6-6.2); White Blood Count 14.9 K/mm3 (4.4-11.0)
[2022-01-13 17:45] LABS: Anion Gap 7 (5-15); BUN 21 mg/dL (7-18); BUN/Creat Ratio 18.3 RATIO (10-20); Calcium,Total 9.6 mg/dL (8.5-10.1); Chloride 109 mmol/L (98-107); Creatinine, Serum 1.15 mg/dL (0.70-1.30); EST Glomerular Filtration Rate 64 mL/min (>60); Est Glom Filt Rate - Afr Amer 78 mL/min (>60); Estimated Creatinine Clearance 39.17 ml/min; Glucose 106 mg/dL (74-106); Potassium 4.4 mmol/L (3.5-5.1); Sodium Level 141 mmol/L (136-145)
[2022-01-13 17:59] LABS: Mucous, Urine 0 SEEN /hpf (<or=2+)
[2022-01-13 18:04] LABS: Color, Urine Yellow (Yellow); Glucose, Dipstick Normal (Normal); Ketone-Dipstick Negative (Negative); Leukocyte Esterase-Dipstick 25 /ul (Negative); Nitrite-Dipstick Negative (Negative); Occult Blood-Urine 150 /ul (Negative); Protein-Dipstick 15 mg/dl (Negative); Specific Gravity, Urine 1.005 (1.002-1.030); Urine Bilirubin Dipstick Negative (Negative); Urine Clarity Clear (Clear); Urine Urobilinogen Normal (Normal)
--- NOTE | 2022-01-13 18:09 | CM.ED ---
SW Note Referral Source: MD Referral Reason: Safety at home Per MD patient reports that he rolled himself out of bed today. Patient reports to being too weak. SW met with patient. Patient said thta he does not go to the grocery store but he eats out at [employer], [employer] or [employer]. Patient said that he showers with a shower seat and is able to shower. Patient reports that he has walkers and a crutch to get around the house. Patient said that he has trouble getting around as he has been lightheaded for the past 3-4 month. SW asked patient if he passed out and he said no. Patient said that he was in the hospital 3-4 months ago and got sent home. Patient said but it has never been like this. SW asked if patient has family and patient said his sister in law lives next door, not 100 feet away. SW asked if patient had ever been to anywhere for rehab in the past and he went to TCU in the past. SW asked that due to patient's current weakness and never being like this would it be beneficial for patient to go to TCU and patient said it's a good idea. updated. SUNG sent email to Stefanie advising her of patient's desire to be in TCU. Plan: TCU [facility]
[2022-01-13 18:30] LABS: Red Blood Cells-Urine 10-25 SEEN /hpf (0-5); Squamous Epithelial Cells - UA 0-5 SEEN /hpf (0-5); White Blood Cells 0-5 SEEN /hpf (0-5)
[2022-01-13 18:31] LABS: Bacteria RARE /hpf (None Seen)
--- NOTE | 2022-01-13 18:50 | HP.PCM.HOS_ITS ---
[facility] - General General Date of Service: 01/13/22 Chief Complaint: mechanical fall HPI Narrative SHANTELL RIVERA, is a 86 M with a PMh as outlined who presents via the ED with a complaitn of mechanical fall. He was too weak to get out of bed today, and had to roll himself out of bed to get onto the floor. He then crawled to the living room. He has been haviing repeated falls which have increased since yesterday. He also fell recently after he lost his balance and struck his head. He is on coumadin. He lives alone. He denied any dizziness, palpitations, cough, chest pain, nausea, vomiting or diarrhea. Review of systems is otehrwise negative. Vitals in the ED were BP of 131/86. AL of 108, RR of 17, temp of 98.7 and she was saturating at 98% on room air. CBC showed wnc of 14.9, Hb of 11.3 and platelets of 172. INR was 4.1. Chemistry was essentially unremarkable. Urinalysis showed rare bacteria. CT of the brain showed no acute intracranial abnormality and shwoed chronic involutional and ischemic changes of the brain. He is being admitted to be managed for debility due to mechanical fall and supratherapeutic INR. 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 Non-healing non-surgical wound Old myocardial infarction Partial bowel obstruction Peripheral vascular disease Presence of combination internal cardiac defibrillator (ICD) and pacemaker Presence of stent in coronary artery (~02/21/03) Pure hypercholesterolemia Shortness of breath on exertion Thyroid disease Thyroid dysfunction Traumatic ecchymosis of left lower leg Wears dentures Home Medications omeprazole 20 mg capsule,delayed release 20 mg PO DAILY GERD 02/19/15 [History Last Taken 07/09/20] tamsulosin 0.4 mg capsule 0.4 mg PO QHS prostate 07/29/17 [History Last Taken 07/09/20] nitroglycerin 0.4 mg sublingual tablet 0.4 mg sublingual Q5M PRN CHEST PAIN #25 tabs 04/23/20 [Rx Last Taken Unknown] levothyroxine 25 mcg tablet 25 mcg PO DAILY THYROID 07/10/20 [History Last Taken 07/09/20] acetaminophen 650 mg tablet,extended release 650 mg PO BID 12/02/20 [History Last Taken Unknown] warfarin 4 mg tablet 4 mg PO .COMPLEX BLOOD THINNER #135 tabs 02/10/21 [Rx Last Taken Unknown] warfarin 4 mg tablet 6 mg PO .COMPLEX 02/10/21 [History Last Taken Unknown] metoprolol tartrate 25 mg tablet 12.5 mg PO DAILY #90 tabs 08/05/21 [Rx Last Taken Unknown] midodrine 5 mg tablet 5 mg PO BID #60 tabs 10/20/21 [Rx Last Taken Unknown] ondansetron 4 mg disintegrating tablet 4 mg PO Q6H PRN nausea and vomiting #10 tabs 10/21/21 [Rx Last Taken Unknown] Allergy/AdvReac Type Severity Reaction Status Date / Time No Known Allergies Allergy Verified 01/13/22 16:23 Family History Father Lung cancer CVA (cerebral vascular accident) Brother Sudden cardiac Surgical History Eyelid retraction unspecified eye, unspecified lid H/O hernia repair H/O myringoplasty History of cardiac catheterization History of coronary artery stent placement History of two vessel coronary artery bypass graft (~1997) Hx of CABG Hx of cholecystectomy Presence of coronary angioplasty implant and graft (~02/21/03) ureteral stent Social History Smoking Status: Former smoker how long ago did patient quit smokin years alcohol intake: never substance use type: does not use caffeine: No ROS Constitutional Constitutional: Reports fatigue, malaise and weakness; Denies anorexia, change in weight, chills or fever(s) Eyes Eyes: Denies change in vision ENT HEENT: Denies dysphagia, headache(s), nasal congestion, sinus pressure or sore t hroat Cardiovascular Cardiovascular: Reports rapid heart rate; Denies chest pain, dyspnea on exertion, lightheadedness, orthopnea, palpitations, paroxysmal nocturnal dyspnea or syncope Respiratory/Chest Respiratory/Chest: Denies cough, shortness of breath at rest, shortness of breath with exertion or wheezing Gastrointestinal Gastrointestinal: Denies abdominal pain, constipation, diarrhea, nausea or vomiting Genitourinary Genitourinary: Denies burning urination or dysuria Musculoskeletal Musculoskeletal: Denies arthralgias or back pain Neurologic Neurologic: Reports abnormal gait; Denies confusion, dizziness, focal weakness, seizure-like activity, seizures or syncope Psychiatric Psychiatric: Reports anxiety and depression Vital Signs Vital Signs Vital Signs: 01/13/22 16:23 01/13/22 16:59 01/13/22 16:59 Temperature 97.6 F L Temperature Source Temporal Pulse Rate 85 118 H Respiratory Rate 17 18 Respiratory Effort Normal Non-Labored Respiratory Depth Normal Respiratory Pattern Normal Blood Pressure 111/70 130/84 H Blood Pressure Mean 83 99 Pulse Ox 97 Oxygen Delivery Method Room Air Room Air 01/13/22 18:20 Temperature Temperature Source Pulse Rate 99 Respiratory Rate 15 Respiratory Effort Respiratory Depth Respiratory Pattern Blood Pressure 131/86 H Blood Pressure Mean 101 Pulse Ox 93 Oxygen Delivery Method Room Air Weight Weight: 130 lb Body Mass Index (BMI) 20.3 Physical Exam Const alert, oriented x3 and no apparent distress Constitutional Narrative: frail HEENT normocephalic, head/scalp atraumatic, hearing grossly normal bilaterally and moist oral mucous membranes Mouth: oral and palatal mucosa normal Eyes PERRL, EOMs intact bilaterally and conjunctivae normal Neck no lymphadenopathy and supple Resp normal respiratory effort, no retractions, no use of accessory muscles and clear to auscultation bilaterally Cardio S1 normal heart sound, S2 normal heart sound and no murmurs Cardio Narrative: afib GI normal to inspection, nondistended, normoactive bowel sounds, soft to palpation and non-tender Extremity normal to inspection, full ROM and no clubbing, cyanosis or edema Neuro oriented x3, CN's II-XII intact bilaterally, moves all extremities and no focal motor deficits Sensorium / Orientation: awake Motor Exam: strength 5/5 throughout Psych affect normal Results Lab / Micro Data Result Diagrams: 01/13/22 16:55 01/13/22 16:55 Labs: Laboratory Results - last 24 hr 01/13/22 16:55: PT 39.3 H, INR 4.1 H* 01/13/22 16:55: WBC 14.9 H, RBC 3.63 L, Hgb 11.3 L, Hct 33.5 L, MCV 92.3, MCH 31.1, MCHC 33.7, RDW Std Deviation 45.3 H, RDW Coeff of Del 13.5, Plt Count 172, MPV 9.9, Immature Gran % (Auto) 0.500, Neut % (Auto) 88.8 H, Lymph % (Auto) 4.9 L, Braxton % (Auto) 5.6, Eos % (Auto) 0.0, Baso % (Auto) 0.2, Absolute Neuts (auto) 13.2 H, Absolute Lymphs (auto) 0.73 L, Nucleated RBC % 0 01/13/22 16:55: Sodium 141, Potassium 4.4, Chloride 109 H, Carbon Dioxide 25.0, Anion Gap 7, BUN 21 H, Creatinine 1.15, Estim Creat Clear Calc 39.17, Est GFR (MDRD) Af Amer 78, Est GFR (MDRD) Non-Af 64, BUN/Creatinine Ratio 18.3, Glucose 106, Calcium 9.6 01/13/22 17:40: Urine Color Yellow, Urine Clarity Clear, Urine pH 7.0, Ur Specific [place] 1.005, Urine Protein 15 H, Urine Glucose (UA) Normal, Urine Ketones Negative, Urine Occult Blood 150 H, Urine Nitrite Negative, Urine Bilirubin Negative, Urine Urobilinogen Normal, Ur Leukocyte Esterase 25 H, Urine RBC 10-25 SEEN, Urine WBC 0-5 SEEN, Ur Squamous Epith Cells 0-5 SEEN, Urine Bacteria RARE, Urine Mucus 0 SEEN Radiology Impression Brain CT 01/13/22 16:31 IMPRESSION: No acute intracranial abnormality. Chronic involutional and ischemic changes of the brain. Electronically Signed: Mu Kendall MD at 17:13 EDT , Assessment & Plan Assessment/Plan (1) Falls frequently: (2) Supratherapeutic INR: (3) Debility: PLAN: Plan #Debility due to mechanical fall * patient has been falling at home. Today, he felt too weak to get out of bed and had to drag himself out of bed to the floor and dragged himself to the living room. * admit to med surg * hold coumadin o/a of mechanical falls * Pt/OT consult. * Fall precautions. * CT brain showed no acute intracranial pathology * #Supratherapeutic INR * INR is 4.1. On coumadin * hold coumadin. * Patient counseled about risk for bleeding due to mechanical falls and being on Coumadin. Patient was counseled that this would need to be a shared decision- making process whether he continues with Coumadin or not. He will be going to a skilled facility on discharge so he wants to think about whether he would want to stop Coumadin or to continue with since to [facility]. * Monitor INR * #Leukocytosis * WBC is 14.9 . No evidence of infection. * May be reactive. We will have her check urinalysis to make sure there is no evidence of UTI. * #A. fib * Rate not very well controlled and in the low 100s. Has not taken his meds today. * Resume metoprolol 12.5 mg daily. * #Hypothyroidism: On Synthroid #BPH: On Flomax DVT prophylaxis: Not indicated as INR is supratherapeutic CODE STATUS: Full code * Patient counseled extensively about different types of CODE STATUS including full code, DNR CCA and DNR CCA. Patient initially stated that he wanted to be DNR, but after thinking about it some more he stated that he would want CPR and intubation if it meant that he would be able to take of himself afterwards and would therefore want us to try to resuscitate him. CODE STATUS is therefore full code. * Total dasc-ex-vubo time 17 minutes Charges/Coding Visit Charges Inpatient E&M: 69297 Init Hosp L3 Procedures Hospitalists Procedures: 69422 Advncd Care Plan 30 Min
[2022-01-13] MEDS: 0.9% Normal Saline 1,000 ML 125 ML IV (21:06)
[2022-01-13] MEDS: Acetaminophen 325 MG Tablet 650 MG PO (21:06)
[2022-01-13] MEDS: Metoprolol Tartrate 25 MG Tablet 12.5 MG PO (21:06)
[2022-01-13] MEDS: Tamsulosin HCl 0.4 MG Capsule PO (21:07)
[2022-01-14] VITALS (12 sets, daily range): BP systolic 133–137; BP diastolic 67–78; PULSE 76–117; RESP 18; TEMP 36.3–37; O2SAT 98–100
[2022-01-14] MEDS: Levothyroxine 25 MCG TABLET PO (05:11)
[2022-01-14] MEDS: 0.9% Normal Saline 1,000 ML 125 ML IV (05:11)
[2022-01-14 05:19] LABS: Absolute Lymphocyte Count 1.01 X10^3/uL (0.83-4.51); Absolute Neutrophil Count 4.9 X10^3/uL (2.0-7.7); Basophil# 0.02 X10^3/uL; Basophil% 0.3 % (0-1); Eosinophil# 0.02 X10^3/uL; Eosinophils% 0.3 % (0-5); Hematocrit 30.9 % (40-54); Hemoglobin 10.2 g/dL (13.0-16.5); Lymphocyte # 1.01 X10^3/ul (0.83-4.51); Lymphocyte % 15.5 % (19-41); Mean Corpuscular Hgb 30.5 pg (27.0-32.0); Mean Corpuscular Volume 92.5 fL (80-94); Mean Platelet Vol. 9.9 fl (6.2-12.0); Monocyte# 0.53 X10^3/uL; Monocyte% 8.1 % (0-10); NRBC Flagged by Analyzer 0 % (0-5); Neutrophil # 4.91 X10^3/uL (2.7-7.7); Neutrophil % 75.5 % (47-70); Platelet Count 135 K/mm3 (150-450); RBC Distribution Width CV 13.5 % (11.6-14.6); RBC Distribution Width SD 45.2 fl (35.1-43.9); Red Blood Count 3.34 M/mm3 (4.6-6.2); White Blood Count 6.5 K/mm3 (4.4-11.0)
[2022-01-14 05:28] LABS: International Normalized Ratio 3.6; Prothrombin Time (Protime)PT. 35.4 SECONDS (11.7-14.9)
[2022-01-14 05:40] LABS: Anion Gap 7 (5-15); BUN 18 mg/dL (7-18); BUN/Creat Ratio 18.7 RATIO (10-20); Calcium,Total 8.4 mg/dL (8.5-10.1); Chloride 113 mmol/L (98-107); Creatinine, Serum 0.96 mg/dL (0.70-1.30); EST Glomerular Filtration Rate 79 mL/min (>60); Est Glom Filt Rate - Afr Amer 95 mL/min (>60); Estimated Creatinine Clearance 46.71 ml/min; Glucose 92 mg/dL (74-106); Potassium 3.7 mmol/L (3.5-5.1); Sodium Level 142 mmol/L (136-145)
--- NOTE | 2022-01-14 07:28 | PN.HOSP_ITS ---
Subjective Subjective Follow-up for mechanical fall, decreased functional activity and adult failure to thrive. Objective Data Objective Data Vital Signs: Vital Signs Temp Pulse Resp BP Pulse Ox O2 Del Method 98.2 F 89 18 134/78 H 98 Room Air 01/14/22 02:37 01/14/22 03:00 01/14/22 02:37 01/14/22 02:37 01/14/22 02:37 01/14/22 02:37 Oxygen Delivery Method Room Air Weight: 129 lb 6.581 oz Body Mass Index (BMI) 20.2 Intake & Output: Intake and Output for Last 24 Hours 01/12/22 01/13/22 01/14/22 23:59 23:59 23:59 Intake Total 1000 / 1000 Output Total 500 / 500 Balance 500 / 500 Lab / Micro Data Result Diagrams: 01/14/22 05:06 01/14/22 05:06 Labs: Laboratory Results - last 24 hr 01/13/22 16:55: PT 39.3 H, INR 4.1 H* 01/13/22 16:55: WBC 14.9 H, RBC 3.63 L, Hgb 11.3 L, Hct 33.5 L, MCV 92.3, MCH 31.1, MCHC 33.7, RDW Std Deviation 45.3 H, RDW Coeff of Del 13.5, Plt Count 172, MPV 9.9, Immature Gran % (Auto) 0.500, Neut % (Auto) 88.8 H, Lymph % (Auto) 4.9 L, [place] % (Auto) 5.6, Eos % (Auto) 0.0, Baso % (Auto) 0.2, Absolute Neuts (auto) 13.2 H, Absolute Lymphs (auto) 0.73 L, Nucleated RBC % 0 01/13/22 16:55: Sodium 141, Potassium 4.4, Chloride 109 H, Carbon Dioxide 25.0, Anion Gap 7, BUN 21 H, Creatinine 1.15, Estim Creat Clear Calc 39.17, Est GFR (MDRD) Af Amer 78, Est GFR (MDRD) Non-Af 64, BUN/Creatinine Ratio 18.3, Glucose 106, Calcium 9.6 01/13/22 17:40: Urine Color Yellow, Urine Clarity Clear, Urine pH 7.0, Ur Specific [place] 1.005, Urine Protein 15 H, Urine Glucose (UA) Normal, Urine Ketones Negative, Urine Occult Blood 150 H, Urine Nitrite Negative, Urine Bilirubin Negative, Urine Urobilinogen Normal, Ur Leukocyte Esterase 25 H, Urine RBC 10-25 SEEN, Urine WBC 0-5 SEEN, Ur Squamous Epith Cells 0-5 SEEN, Urine Bacteria RARE, Urine Mucus 0 SEEN 01/14/22 05:06: WBC 6.5, RBC 3.34 L, Hgb 10.2 L, Hct 30.9 L, MCV 92.5, MCH 30.5, MCHC 33.0, RDW Std Deviation 45.2 H, RDW Coeff of Del 13.5, Plt Count 135 L, MPV 9.9, Immature Gran % (Auto) 0.300, Neut % (Auto) 75.5 H, Lymph % (Auto) 15.5 L, [place] % (Auto) 8.1, Eos % (Auto) 0.3, Baso % (Auto) 0.3, Absolute Neuts (auto) 4.9, Absolute Lymphs (auto) 1.01, Nucleated RBC % 0 01/14/22 05:06: PT 35.4 H, INR 3.6 01/14/22 05:06: Sodium 142, Potassium 3.7, Chloride 113 H, Carbon Dioxide 22.0, Anion Gap 7, BUN 18, Creatinine 0.96, Estim Creat Clear Calc 46.71, Est GFR (MDRD) Af Amer 95, Est GFR (MDRD) Non-Af 79, BUN/Creatinine Ratio 18.7, Glucose 92, Calcium 8.4 L Radiography Diagnostic Testing: Radiology Impression Brain CT 01/13/22 16:31 IMPRESSION: No acute intracranial abnormality. Chronic involutional and ischemic changes of the brain. Electronically Signed: Mu Kendall MD at 17:13 EDT , Physical Exam Narrative Seen and examined. Patient is stated he fell from the toilet seat forward and has mild abrasion on the head. Patient on warfarin but fortunately did not had major intracranial bleed or injury. After that patient gradually went to bed but could not control himself and fell softly on the bed. Thereafter, his doorbell rang but could not stand up or walk therefore he rolled on the bed and crawled to open the door. Throughout he was conscious and alert denies any loss of consciousness or passing out. Physical exam General: Alert, Oriented x3, Cooperative HEENT: Atraumatic, PERRLA, EOMI, Normocephalic. No ENT bleed Oral: No oral ulcers/mucosal bleed. No Gingival or Mucosal Lesions/ Ulcerations Neck: Supple, No JVD, Negative Carotid Bruits Lungs: Air entry diminished in bilateral lung bases. No crepitation/rhonchi Cardiovascular: Regular rate, Regular Rhythm, Normal S1, Normal S2, No murmurs Abdomen: Bowel Sounds Present, Soft, Non Tender, Non-Distended : No renal angle tenderness. No suprapubic tenderness. Extremities: No edema, Capillary Refill Less than 3 Seconds Skin: Mild abrasion over his scalp. No active bleeding Musculoskeletal: No Tenderness to Palpation of Joints or Extremities Neurological: Cranial nerves II-XII grossly intact, DTR 2+/4 and Symmetrical, Neuro grossly intact Psych/Mental Status: Normal Affect, Appropriate. Assessment & Plan Assessment/Plan (1) Falls frequently: (2) Supratherapeutic INR: (3) Debility: PLAN: Plan 86-year-old male admitted with mechanical fall after feeling too weak to get out of bed, rolled himself on the floor. No fever dizziness palpitation cough chest pain nausea vomiting or diarrhea. He also had supratherapeutic INR. Repeated fall recently, increased since day before admission after he lost his balance and struck his head. #Debility due to mechanical fall * Patient admitted to [facility] floor. Warfarin on hold for supratherapeutic INR. PT and OT consulted. Fall precaution. CT head usually reviewed did not show any acute hold if heart rate less than 60/min and if persistently low between 60-70/m, can decrease the dose to 25 mg twice daily in consultation his PCP pathology. #Supratherapeutic INR * INR is 4.1. On coumadin * hold coumadin. * Patient counseled about risk for bleeding due to mechanical falls and being on Coumadin. Patient was counseled that this would need to be a shared decision- making process whether he continues with Coumadin or not. He will be going to a skilled facility on discharge so he wants to think about whether he would w ant to stop Coumadin or to continue with since to be going to a longterm facility. * Monitor INR #Leukocytosis * WBC is 14.9 . No evidence of infection. * May be reactive. Does not have dysuria or acute change in longevity of symptoms. LE 25. Nitrite negative. RBC 10-25 cells. WBC 0-5. Patient does not have UTI. * Repeat WBC count normal. #A. fib * During admission, heart rate not very well controlled and in the low 100s. Metoprolol 12.5 mg daily resumed and heart rate is controlled. #Hypothyroidism: On Synthroid Check TSH tomorrow AM #BPH: On Flomax DVT prophylaxis: Not indicated as INR is supratherapeutic CODE STATUS: Full code * Patient counseled extensively about different types of CODE STATUS including full code, DNR CCA and DNR CCA. Patient initially stated that he wanted to be DNR, but after thinking about it some more he stated that he would want CPR and intubation if it meant that he would be able to take of himself afterwards and would therefore want us to try to resuscitate him. CODE STATUS is therefore full code. Laboratory Results 01/13/22 16:55: PT 39.3 H, INR 4.1 H* 01/13/22 16:55: WBC 14.9 H, RBC 3.63 L, Hgb 11.3 L, Hct 33.5 L, MCV 92.3, MCH 31.1, MCHC 33.7, RDW Std Deviation 45.3 H, RDW Coeff of Del 13.5, Plt Count 172, MPV 9.9, Immature Gran % (Auto) 0.500, Neut % (Auto) 88.8 H, Lymph % (Auto) 4.9 L, [place] % (Auto) 5.6, Eos % (Auto) 0.0, Baso % (Auto) 0.2, Absolute Neuts (auto) 13.2 H, Absolute Lymphs (auto) 0.73 L, Nucleated RBC % 0 01/13/22 16:55: Sodium 141, Potassium 4.4, Chloride 109 H, Carbon Dioxide 25.0, Anion Gap 7, BUN 21 H, Creatinine 1.15, Estim Creat Clear Calc 39.17, Est GFR (MDRD) Af Amer 78, Est GFR (MDRD) Non-Af 64, BUN/Creatinine Ratio 18.3, Glucose 106, Calcium 9.6 01/13/22 17:40: Urine Color Yellow, Urine Clarity Clear, Urine pH 7.0, Ur Specific [place] 1.005, Urine Protein 15 H, Urine Glucose (UA) Normal, Urine Ketones Negative, Urine Occult Blood 150 H, Urine Nitrite Negative, Urine Bilirubin Negative, Urine Urobilinogen Normal, Ur Leukocyte Esterase 25 H, Urine RBC 10-25 SEEN, Urine WBC 0-5 SEEN, Ur Squamous Epith Cells 0-5 SEEN, Urine Bacteria RARE, Urine Mucus 0 SEEN 01/14/22 05:06: WBC 6.5, RBC 3.34 L, Hgb 10.2 L, Hct 30.9 L, MCV 92.5, MCH 30.5, MCHC 33.0, RDW Std Deviation 45.2 H, RDW Coeff of Del 13.5, Plt Count 135 L, MPV 9.9, Immature Gran % (Auto) 0.300, Neut % (Auto) 75.5 H, Lymph % (Auto) 15.5 L, [place] % (Auto) 8.1, Eos % (Auto) 0.3, Baso % (Auto) 0.3, Absolute Neuts (auto) 4.9, Absolute Lymphs (auto) 1.01, Nucleated RBC % 0 01/14/22 05:06: PT 35.4 H, INR 3.6 01/14/22 05:06: Sodium 142, Potassium 3.7, Chloride 113 H, Carbon Dioxide 22.0, Anion Gap 7, BUN 18, Creatinine 0.96, Estim Creat Clear Calc 46.71, Est GFR (MDRD) Af Amer 95, Est GFR (MDRD) Non-Af 79, BUN/ Creatinine Ratio 18.7, Glucose 92, Calcium 8.4 L Clinical Impression(s) from Imaging Studies Brain CT 01/13/22 16:31 IMPRESSION: No acute intracranial abnormality. Chronic involutional and ischemic changes of the brain. Charges/Coding Visit Charges Inpatient E&M: 54804 Subs Hosp L2
[2022-01-14] MEDS: Metoprolol Tartrate 25 MG Tablet 12.5 MG PO ×2 (08:29→22:00)
[2022-01-14] MEDS: Acetaminophen 325 MG Tablet 650 MG PO ×2 (08:29→21:36)
[2022-01-14] MEDS: Pantoprazole Sodium 20 MG Tablet PO (08:29)
[2022-01-14] MEDS: Midodrine HCl 5 MG Tablet PO ×2 (08:29→16:59)
--- NOTE | 2022-01-14 10:04 | CASEMGMT ---
Social Work SW in to meet with pt. Introduced self and role at the hospital. Pt agreeable to discussing discharge plan. A printed list of SNF providers including quality and resources use date that is consistent with patient's preferred geographical region, medical needs, and insurances network were provided via the [employer].?Pt's choice is [facility]. SW called [place] [facility] at TCU to refer pt. Left message for [place] with pt info and asked for [place] to review and inform [facility] if willing to accept pt. PLAN: TCU, pending precert [facility]
--- NOTE | 2022-01-14 10:46 | CASEMGMT ---
Social Work SW received pc from [place] at [facility]. [place] willing to accept pt and will start precert today. PLAN: [facility], pending precert [facility]
[2022-01-14] MEDS: Tamsulosin HCl 0.4 MG Capsule PO (21:36)
--- NOTE | 2022-01-14 21:51 | PCM.HOSP.N ---
Hospitalist Note By Min GLASS that patient's heart rate is slightly elevated in the 110s to 120s. Patient has a history of A. fib and typically receives Lopressor 12.5 daily. Lopressor 12.5 mg p.o. increased to twice daily.
[2022-01-15] VITALS (10 sets, daily range): BP systolic 129–147; BP diastolic 69–89; PULSE 67–107; RESP 18; TEMP 36.1–36.6; O2SAT 95–99
[2022-01-15] MEDS: Levothyroxine 25 MCG TABLET PO (04:00)
[2022-01-15 06:18] LABS: Absolute Lymphocyte Count 1.22 X10^3/uL (0.83-4.51); Basophil# 0.03 X10^3/uL; Basophil% 0.6 % (0-1); Eosinophil# 0.11 X10^3/uL; Eosinophils% 2.2 % (0-5); Hematocrit 33.4 % (40-54); Hemoglobin 11.3 g/dL (13.0-16.5); Lymphocyte # 1.22 X10^3/ul (0.83-4.51); Lymphocyte % 24.8 % (19-41); Mean Corp Hgb Conc 33.8 g/dL (32-36); Mean Corpuscular Hgb 31.3 pg (27.0-32.0); Mean Corpuscular Volume 92.5 fL (80-94); Mean Platelet Vol. 9.5 fl (6.2-12.0); Monocyte# 0.51 X10^3/uL; Monocyte% 10.4 % (0-10); NRBC Flagged by Analyzer 0 % (0-5); Neutrophil # 3.04 X10^3/uL (2.7-7.7); Neutrophil % 61.8 % (47-70); Platelet Count 135 K/mm3 (150-450); RBC Distribution Width CV 13.4 % (11.6-14.6); RBC Distribution Width SD 45.6 fl (35.1-43.9); Red Blood Count 3.61 M/mm3 (4.6-6.2); White Blood Count 4.9 K/mm3 (4.4-11.0)
[2022-01-15 06:27] LABS: International Normalized Ratio 2.3; Prothrombin Time (Protime)PT. 25.4 SECONDS (11.7-14.9)
[2022-01-15 06:46] LABS: Anion Gap 5 (5-15); BUN 22 mg/dL (7-18); BUN/Creat Ratio 20.2 RATIO (10-20); Calcium,Total 9.2 mg/dL (8.5-10.1); Chloride 113 mmol/L (98-107); Creatinine, Serum 1.09 mg/dL (0.70-1.30); EST Glomerular Filtration Rate 68 mL/min (>60); Est Glom Filt Rate - Afr Amer 83 mL/min (>60); Estimated Creatinine Clearance 41.14 ml/min; Glucose 94 mg/dL (74-106); Potassium 4.3 mmol/L (3.5-5.1); Sodium Level 142 mmol/L (136-145)
[2022-01-15] MEDS: Acetaminophen 325 MG Tablet 650 MG PO ×2 (08:08→14:53)
[2022-01-15] MEDS: Pantoprazole Sodium 20 MG Tablet PO (08:08)
[2022-01-15] MEDS: Metoprolol Tartrate 25 MG Tablet 12.5 MG PO (08:08)
[2022-01-15] MEDS: Midodrine HCl 5 MG Tablet PO ×2 (08:08→16:23)
--- NOTE | 2022-01-15 10:30 | PCM.TXEXTCAR ---
Diet Diet Order/Speech Therapy: 01/13/22 20:04 Diet: Cardiac - Heart Healthy Food consistency:: Regular Liquid Consistency:: Regular/Thin Is pt able to select menu?: Yes Routine Orders/Code Status Suppository Type: Dulcolax 10mg Suppository Frequency: Daily PRN Code Status: Full Code Wound(s) R elbow: Wound Type: Skin Tear top of head: Wound Type: Skin Tear Therapies Weight Bearing: Weight bearing as tolerated Extremity Affected:: Bilateral Lower Physical Therapy: Eval and Treat Occupational Therapy: Eval and Treat Speech Therapy: Eval and Treat Problem/Diagnosis (1) Falls frequently: Status: Acute Code(s): R29.6 - Repeated falls (2) Supratherapeutic INR: Status: Acute Code(s): R79.1 - Abnormal coagulation profile (3) Debility: Status: Acute Code(s): R53.81 - Other malaise Allergies/Procedures Done in Hospital Allergies No Known Allergies Allergy (Verified 01/13/22 16:23) Type of Care/Length of Stay Estimated LOS: Convalescent Care Less Than 30 days Type of Care Needed: Skilled Rehab Potential: Good Prognosis: Good Additional Orders/Day of Discharge Day of Discharge: 01/15/22 Discharge Plan Admission Admit Date/Time: 01/13/22 19:17 Attending Provider: Zoran Ferrer Primary Care Provider: Jono Harrington [employer] Providers: Maru Polo Discharge Orders/Prescriptions Prescriptions: New warfarin 5 mg tablet 5 mg PO WESA Qty: 30 0RF Rx Instructions: 5 mg on Wednesday and Wednesday Continued omeprazole 20 MG capsule 20 mg PO DAILY Label Comments: reflux tamsulosin 0.4 MG capsule,extended release 24hr 0.4 mg PO QHS levothyroxine 25 MCG tablet 25 mcg PO DAILY acetaminophen 650 mg tablet extended release 650 mg PO BID Label Comments: TAKE 2 TABLETS THREE TIMES DAILY ondansetron 4 mg tablet,disintegrating 4 mg PO Q6H PRN (Reason: nausea and vomiting) Qty: 10 0RF midodrine 5 mg tablet 5 mg PO BID Rx Instructions: do not give last dose of day after 6PM or within 4 hrs of bedtime metoprolol tartrate 25 mg tablet 12.5 mg PO DAILY nitroglycerin 0.4 mg tablet, sublingual 0.4 mg sublingual Q5M PRN (Reason: CHEST PAIN) Qty: 25 3RF Label Comments: chest pain Rx Instructions: 1 tablet sublingual every 5 minutes x 3 for chest pain, if unresolved call 911 Changed warfarin 4 mg tablet 4 mg PO .COMPLEX Qty: 135 0RF Protocol: Dose Management Condition: Wednesday Dose/Route: 6 mg Instruction: 1.5 x 4 mg tablets Condition: Wednesday Dose/Route: 6 mg Instruction: 1.5 x 4 mg tablets Condition: Wednesday Dose/Route: 4 mg Instruction: 1 x 4 mg tablet Condition: Wednesday Dose/Route: 6 mg Instruction: 1.5 x 4 mg tablets Condition: Dose/Route: 6 mg Instruction: 1.5 x 4 mg tablets Condition: Wednesday Dose/Route: 6 mg Instruction: 1.5 x 4 mg tablets Condition: Wednesday Dose/Route: 6 mg Instruction: 1.5 x 4 mg tablets Protocol Text: Adjustment Start Date: Wednesday12/30/21 INR Value: 2.4 INR Date: 12/30/21 Recheck Date: 01/06/22 Label Comments: TAKE 1 1/2 TABLETS BY MOUTH WEDNESDAY THRU WEDNESDAY AND 1 TABLET WEDNESDAY, WEDNESDAY AND WEDNESDAY OR DIRECTED Rx Instructions: 4 mg daily except Wednesday and Wednesday Discontinued warfarin 4 mg tablet 6 mg PO .COMPLEX Hold Instructions: Resume on 12/12/20. Protocol: Dose Management Condition: Wednesday Dose/Route: 6 mg Instruction: 1.5 x 4 mg tablets Condition: Wednesday Dose/Route: 6 mg Instruction: 1.5 x 4 mg tablets Condition: Wednesday Dose/Route: 4 mg Instruction: 1 x 4 mg tablet Condition: Wednesday Dose/Route: 6 mg Instruction: 1.5 x 4 mg tablets Condition: Dose/Route: 6 mg Instruction: 1.5 x 4 mg tablets Condition: Wednesday Dose/Route: 6 mg Instruction: 1.5 x 4 mg tablets Condition: Wednesday Dose/Route: 6 mg Instruction: 1.5 x 4 mg tablets Protocol Text: Adjustment Start Date: Wednesday12/30/21 INR Value: 2.4 INR Date: 12/30/21 Recheck Date: 01/06/22 Rx Instructions: as directed Referrals / Follow Up: Jono Harrington Chi, MD [Primary Care Provider] - Disposition Disposition (needs filled in before D/C Order can be placed): [facility]
--- NOTE | 2022-01-15 14:48 | DS.PCM_ITS ---
Providers Date of Admission: 01/13/22 Date of Discharge: 01/15/22 Primary Care Physician: Dr. Jono Harrington MD Reason For Visit: MECHANICAL FALL Diagnosis Discharge Diagnosis (1) Falls frequently: Status: Acute Code(s): R29.6 - Repeated falls (2) Supratherapeutic INR: Status: Acute Code(s): R79.1 - Abnormal coagulation profile (3) Debility: Status: Acute Code(s): R53.81 - Other malaise Medications at Discharge Home Medications omeprazole 20 mg capsule,delayed release 20 mg PO DAILY GERD 02/19/15 tamsulosin 0.4 mg capsule 0.4 mg PO QHS prostate 07/29/17 nitroglycerin 0.4 mg sublingual tablet 0.4 mg sublingual Q5M PRN CHEST PAIN #25 tabs 04/23/20 levothyroxine 25 mcg tablet 25 mcg PO DAILY THYROID 07/10/20 acetaminophen 650 mg tablet,extended release 650 mg PO BID pain 12/02/20 ondansetron 4 mg disintegrating tablet 4 mg PO Q6H PRN nausea and vomiting #10 tabs 10/21/21 metoprolol tartrate 25 mg tablet 12.5 mg PO DAILY bp 01/13/22 midodrine 5 mg tablet 5 mg PO BID bp 01/13/22 warfarin 4 mg tablet 4 mg PO .COMPLEX BLOOD THINNER #135 tabs 01/15/22 warfarin 5 mg tablet 5 mg PO WESA #30 tabs 01/15/22 Hospital Course Summary of Care Provided Hospital Course: 86-year-old male admitted with mechanical fall after feeling too weak to get out of bed, rolled himself on the floor. No fever dizziness palpitation cough chest pain nausea vomiting or diarrhea. He also had supratherapeutic INR. Repeated fall recently, increased since day before admission after he lost his balance and struck his head. #Debility due to mechanical fall * [facility] Warfarin on hold for supratherapeutic INR. PT and OT consulted. Fall precaution. CT head usually reviewed did not show any acute hold if heart rate less than 60/min and if persistently low between 60-70/m, can decrease the dose to 25 mg twice daily in consultation his PCP pathology. #Supratherapeutic INR * INR was 4.1. * hold coumadin. * Patient counseled about risk for bleeding due to mechanical falls and being on Coumadin. Patient was counseled that this would need to be a shared decision- making process whether he continues with Coumadin or not. He will be going to a skilled facility on discharge so he wants to think about whether he would want to stop Coumadin or to continue with since to be going to a alf facility. * Repeat INR 2.3. Warfarin resumed with 5 mg on Wednesday and Wednesday and 4 mg on rest of the days. #Leukocytosis * WBC is 14.9 . No evidence of infection. * May be reactive. Does not have dysuria or acute change in longevity of symptoms. LE 25. Nitrite negative. RBC 10-25 cells. WBC 0-5. Patient does not have UTI. * Repeat WBC count normal. #A. fib * During admission, heart rate not very well controlled and in the low 100s. Metoprolol 12.5 mg daily resumed and heart rate is controlled. #Hypothyroidism: On Synthroid. Check TSH in TCU #BPH: On Flomax DVT prophylaxis: INR therapeutic CODE STATUS: Full code Discharge medication reconciliation done. Discharge follow-up instructions completed. Discharge process discussed with the patient and all questions were answered to patient's satisfaction. Discharged to TCU Total time spent, exact 35 minutes on discharge meds reconciliation, examination, coordination of care with nurses and ancillary staff, review of imaging and blood test and discussion with the patient on follow-up instructions. Laboratory Results 01/15/22 06:00: WBC 4.9, RBC 3.61 L, Hgb 11.3 L, Hct 33.4 L, MCV 92.5, MCH 31.3, MCHC 33.8, RDW Std Deviation 45.6 H, RDW Coeff of Del 13.4, Plt Count 135 L, MPV 9.5, Immature Gran % (Auto) 0.200, Neut % (Auto) 61.8, Lymph % (Auto) 24.8, [place] % (Auto) 10.4 H, Eos % (Auto) 2.2, Baso % (Auto) 0.6, Absolute Neuts (auto) 3.0, Absolute Lymphs (auto) 1.22, Nucleated RBC % 0 01/15/22 06:00: PT 25.4 H, INR 2.3 01/15/22 06:00: Sodium 142, Potassium 4.3, Chloride 113 H, Carbon Dioxide 24.0, Anion Gap 5, BUN 22 H, Creatinine 1.09, Estim Creat Clear Calc 41.14, Est GFR (MDRD) Af Amer 83, Est GFR (MDRD) Non-Af 68, BUN/Creatinine Ratio 20.2 H, Glucose 94, Calcium 9.2 Clinical Impression(s) from Imaging Studies Brain CT 01/13/22 16:31 IMPRESSION: No acute intracranial abnormality. Chronic involutional and ischemic changes of the brain. Physical Exam Narrative Seen and examined. Patient feels better after physical therapy. Would like to PCU. Physical exam General: Alert, Oriented x3, Cooperative HEENT: Atraumatic, PERRLA, EOMI, Normocephalic. No ENT bleed Oral: No oral ulcers/mucosal bleed. No Gingival or Mucosal Lesions/ Ulcerations Neck: Supple, No JVD, Negative Carotid Bruits Lungs: Air entry diminished in bilateral lung bases. No crepitation/rhonchi Cardiovascular: Regular rate, Regular Rhythm, Normal S1, Normal S2, No murmurs Abdomen: Bowel Sounds Present, Soft, Non Tender, Non-Distended : Denies dysuria, frequency or urgency. No renal angle tenderness. No suprapubic tenderness. Extremities: No edema, Capillary Refill Less than 3 Seconds Skin: Mild abrasion over his scalp. No active bleeding Musculoskeletal: No Tenderness to Palpation of Joints or Extremities Neurological: Cranial nerves II-XII grossly intact, DTR 2+/4 and Symmetrical, Neuro grossly intact Psych/Mental Status: Normal Affect, Appropriate. Weight / BMI Weight Weight: 129 lb 6.581 oz Body Mass Index (BMI) 20.2 ABG / Lab / Microbiology Data Result Diagrams: 01/15/22 06:00 01/15/22 06:00 Laboratory: Laboratory Results - last 24 hr 01/15/22 06:00: WBC 4.9, RBC 3.61 L, Hgb 11.3 L, Hct 33.4 L, MCV 92.5, MCH 31.3, MCHC 33.8, RDW Std Deviation 45.6 H, RDW Coeff of Del 13.4, Plt Count 135 L, MPV 9.5, Immature Gran % (Auto) 0.200, Neut % (Auto) 61.8, Lymph % (Auto) 24.8, [place] % (Auto) 10.4 H, Eos % (Auto) 2.2, Baso % (Auto) 0.6, Absolute Neuts (auto) 3.0, Absolute Lymphs (auto) 1.22, Nucleated RBC % 0 01/15/22 06:00: PT 25.4 H, INR 2.3 01/15/22 06:00: Sodium 142, Potassium 4.3, Chloride 113 H, Carbon Dioxide 24.0, Anion Gap 5, BUN 22 H, Creatinine 1.09, Estim Creat Clear Calc 41.14, Est GFR (MDRD) Af Amer 83, Est GFR (MDRD) Non-Af 68, BUN/Creatinine Ratio 20.2 H, Glucose 94, Calcium 9.2 Meaningful Use Info Meaningful Use Diagnoses (Choose all that apply): None applicable Discharge Plan Admission Admit Date/Time: 01/13/22 19:17 Attending Provider: Zoran Ferrer Primary Care Provider: Jono Harrington Chi Consulting Providers: Maru Polo Discharge Orders/Prescriptions Prescriptions: New warfarin 5 mg tablet 5 mg PO WESA Qty: 30 0RF Rx Instructions: 5 mg on Wednesday and Wednesday Continued omeprazole 20 MG capsule 20 mg PO DAILY Label Comments: reflux tamsulosin 0.4 MG capsule,extended release 24hr 0.4 mg PO QHS levothyroxine 25 MCG tablet 25 mcg PO DAILY acetaminophen 650 mg tablet extended release 650 mg PO BID Label Comments: TAKE 2 TABLETS THREE TIMES DAILY ondansetron 4 mg tablet,disintegrating 4 mg PO Q6H PRN (Reason: nausea and vomiting) Qty: 10 0RF midodrine 5 mg tablet 5 mg PO BID Rx Instructions: do not give last dose of day after 6PM or within 4 hrs of bedtime metoprolol tartrate 25 mg tablet 12.5 mg PO DAILY nitroglycerin 0.4 mg tablet, sublingual 0.4 mg sublingual Q5M PRN (Reason: CHEST PAIN) Qty: 25 3RF Label Comments: chest pain Rx Instructions: 1 tablet sublingual every 5 minutes x 3 for chest pain, if unresolved call 911 Changed warfarin 4 mg tablet 4 mg PO .COMPLEX Qty: 135 0RF Protocol: Dose Management Condition: Wednesday Dose/Route: 6 mg Instruction: 1.5 x 4 mg tablets Condition: Wednesday Dose/Route: 6 mg Instruction: 1.5 x 4 mg tablets Condition: Wednesday Dose/Route: 4 mg Instruction: 1 x 4 mg tablet Condition: Wednesday Dose/Route: 6 mg Instruction: 1.5 x 4 mg tablets Condition: Dose/Route: 6 mg Instruction: 1.5 x 4 mg tablets Condition: Wednesday Dose/Route: 6 mg Instruction: 1.5 x 4 mg tablets Condition: Wednesday Dose/Route: 6 mg Instruction: 1.5 x 4 mg tablets Protocol Text: Adjustment Start Date: Wednesday12/30/21 INR Value: 2.4 INR Date: 12/30/21 Recheck Date: 01/06/22 Label Comments: TAKE 1 1/2 TABLETS BY MOUTH WEDNESDAY THRU WEDNESDAY AND 1 TABLET WEDNESDAY, WEDNESDAY AND WEDNESDAY OR DIRECTED Rx Instructions: 4 mg daily except Wednesday and Wednesday Discontinued warfarin 4 mg tablet 6 mg PO .COMPLEX Hold Instructions: Resume on 12/12/20. Protocol: Dose Management Condition: Wednesday Dose/Route: 6 mg Instruction: 1.5 x 4 mg tablets Condition: Wednesday Dose/Route: 6 mg Instruction: 1.5 x 4 mg tablets Condition: Wednesday Dose/Route: 4 mg Instruction: 1 x 4 mg tablet Condition: Wednesday Dose/Route: 6 mg Instruction: 1.5 x 4 mg tablets Condition: Dose/Route: 6 mg Instruction: 1.5 x 4 mg tablets Condition: Wednesday Dose/Route: 6 mg Instruction: 1.5 x 4 mg tablets Condition: Wednesday Dose/Route: 6 mg Instruction: 1.5 x 4 mg tablets Protocol Text: Adjustment Start Date: Wednesday12/30/21 INR Value: 2.4 INR Date: 12/30/21 Recheck Date: 01/06/22 Rx Instructions: as directed Referrals / Follow Up: Jono Harrington Chi, MD [Primary Care Provider] - Disposition Disposition (needs filled in before D/C Order can be placed): Group Home Facility Charges/Coding Visit Charges Inpatient E&M: 83427 Disch Hosp
--- NOTE | 2022-01-15 14:50 | CASEMGMT ---
Addendum entered by Abiola Gordon 01/15/22 14:54: SW faxed discharge orders to TCU. Placed copies of orders on chart and originals in envelope to go with pt. Disposition: TCU [facility]ace Original Note: Social Work SW in to notify pt of insurance approval for TCU. Pt voiced understanding, expressed ready to move to new room. Sw inquired if pt has anyone that SW could update about discharge plan. Pt declined, stated, there is no family that cares about me. SW offered support and validated pt feelings. Encourged pt to reach out to SW with any needs or concerns before discharge. Pt agreeable. Notified pt nurse of discharge and need for Covid test. Nurse Margo, understanding, planning covid test kevin. PLAN: TCU [facility]
--- NOTE | 2022-01-15 16:40 | NURSING ---
Report called to [facility] De Jesus in TCU pt will go to room 9 once he eats his dinner he will be sent over.
== END 2022-01-15 18:16 | disposition skilled nursing facility (03) | DRG 948 ==
LOC: ED 18:54 → MS3 19:32
PROVIDERS: Emergency Medicine; Admitting Provider Student in an Organized Health Care Education/Training Program; Emergency Provider Emergency Medicine; PCP Family Medicine Geriatric Medicine; Visit Provider Internal Medicine
DX: R53.81 Other malaise (principal); I48.20 Chronic atrial fibrillation, unspecified; R62.7 Adult failure to thrive; E03.9 Hypothyroidism, unspecified; I10 Essential (primary) hypertension; I25.10 Atherosclerotic heart disease of native coronary artery without angina pectoris; E78.00 Pure hypercholesterolemia, unspecified; D72.829 Elevated white blood cell count, unspecified; I25.2 Old myocardial infarction; K21.9 Gastro-esophageal reflux disease without esophagitis; N20.0 Calculus of kidney; R53.1 Weakness; R29.6 Repeated falls; R79.1 Abnormal coagulation profile; Z60.2 Problems related to living alone; Z95.1 Presence of aortocoronary bypass graft; Z95.5 Presence of coronary angioplasty implant and graft; Z95.810 Presence of automatic (implantable) cardiac defibrillator; Z68.20 Body mass index [BMI] 20.0-20.9, adult; Z79.01 Long term (current) use of anticoagulants; Z79.899 Other long term (current) drug therapy; Z87.891 Personal history of nicotine dependence
CPT/HCPCS: 36415; 70450; 80048; 81001; 85025; 85610; 87086; 87088; 87426; 93005; 97162; 97166; 97530; 97535; 99285; J7030; A4216

== ENCOUNTER 2022-01-15 18:26 | Inpatient (IN) | payer MEDICARE, SELFPAY ==
[2022-01-15 20:10] VITALS: O2SAT 97
[2022-01-15 20:47] VITALS: BP 143/67; PULSE 96; RESP 14; TEMP 36.8; O2SAT 99
[2022-01-15 20:49] VITALS: BMI 21.3
--- NOTE | 2022-01-15 20:58 | HP.PCM_ITS ---
HPI - General General Date of Admission: 01/15/22 Date of Service: 01/16/22 Chief Complaint: Here for rehab. HPI Narrative 01/13/2022 SHANTELL RIVERA, is a 86 Male who presents to [facility] Emergency Department with fall. Fell from bed, too weak to get out of bed, rolled onto floor, crawled to living room. Increased falls yesterday, Mild forehead pain, hit head on wall when he fell. WBC 14.9, INR 4.1, UA negative, CT head negative. 01/13/2022 Admit to Hospital. PT/OT. Hold coumadin secondary to falls. 01/14/2022 Consider decreasing metoprolol to 12.5mg bid. Consider stopping coumadin altogether. Urinary tract infection ruled out. 01/15/2022 Admit to TCU with debility, here for rehablitation, strengthening, prior to discharge home alone. 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 Non-healing non-surgical wound Old myocardial infarction Partial bowel obstruction Peripheral vascular disease Presence of combination internal cardiac defibrillator (ICD) and pacemaker Presence of stent in coronary artery (~02/21/03) Pure hypercholesterolemia Shortness of breath on exertion Thyroid disease Thyroid dysfunction Traumatic ecchymosis of left lower leg Wears dentures Home Medications omeprazole 20 mg capsule,delayed release 20 mg PO DAILY GERD 02/19/15 [History Last Taken 01/12/22] tamsulosin 0.4 mg capsule 0.4 mg PO QHS prostate 07/29/17 [History Last Taken 01/12/22] nitroglycerin 0.4 mg sublingual tablet 0.4 mg sublingual Q5M PRN CHEST PAIN #25 tabs 04/23/20 [Rx Last Taken Unknown] levothyroxine 25 mcg tablet 25 mcg PO DAILY THYROID 07/10/20 [History Last Taken 01/12/22] metoprolol tartrate 25 mg tablet 12.5 mg PO DAILY bp 01/13/22 [History Last Taken 01/12/22] midodrine 5 mg tablet 5 mg PO BID bp 01/13/22 [History Last Taken 01/12/22] acetaminophen 325 mg tablet 650 mg PO BID PRN PRN pain 1-10 01/15/22 [History Last Taken Unknown] ondansetron 4 mg disintegrating tablet 4 mg PO Q6H PRN PRN nausea and vomiting 01/15/22 [History Last Taken Unknown] warfarin 4 mg tablet 4 mg PO SUMOTUTHFR BLOOD THINNER 01/15/22 [History Last Taken Unknown] warfarin 5 mg tablet 5 mg PO WESA blood thinner 01/15/22 [History Last Taken Unknown] Allergy/AdvReac Type Severity Reaction Status Date / Time No Known Allergies Allergy Verified 01/13/22 16:23 Family History Father Lung cancer CVA (cerebral vascular accident) Brother Sudden cardiac Surgical History Eyelid retraction unspecified eye, unspecified lid H/O hernia repair H/O myringoplasty History of cardiac catheterization History of coronary artery stent placement History of two vessel coronary artery bypass graft (~1997) Hx of CABG Hx of cholecystectomy Presence of coronary angioplasty implant and graft (~02/21/03) ureteral stent Social History (Updated 01/15/22 @ 21:[address] Jono Harrington MD) household members: none Smoking Status: Former smoker how long ago did patient quit smokin years alcohol intake: never substance use type: does not use caffeine: No ROS Constitutional Constitutional: Denies chills, fever(s) or weight gain ENT HEENT: Denies headache(s), nasal congestion or nasal discharge Cardiovascular Cardiovascular: Denies chest pain or palpitations Respiratory/Chest Respiratory/Chest: Denies cough, excessive phlegm production or shortness of breath with exertion Gastrointestinal Gastrointestinal: Denies abdominal pain, nausea or vomiting Genitourinary Genitourinary: Denies dysuria Musculoskeletal Musculoskeletal: Denies joint pain or joint swelling Integumentary Integumentary: Denies rash or wounds Neurologic Neurologic: Denies focal weakness, numbness or tingling Psychiatric Psychiatric: Denies anxiety, auditory hallucinations, depression, homicidal ideation or suicidal ideation Vital Signs Vital Signs Vital Signs: 01/15/22 20:47 Temperature 98.2 F Temperature Source Oral Pulse Rate 96 Respiratory Rate 14 Blood Pressure 143/67 H Blood Pressure Mean 92 Blood Pressure Source Monitor Blood Pressure Position Left Lateral Blood Pressure Location Right Arm Pulse Ox 99 Oxygen Delivery Method Room Air Weight Weight: 59.874 kg Body Mass Index (BMI) 21.3 Physical Exam Const alert General Appearance: cooperative HEENT normocephalic Eyes PERRL and EOMs intact bilaterally Neck supple, no JVD and no carotid bruits Resp normal respiratory effort, normal air movement and clear to auscultation bilaterally Cardio regular rate and regular rhythm GI normal to inspection, nondistended, normoactive bowel sounds, non-tender and non-distended Extremity normal capillary refill General Extremity: Negative for edema Skin no rashes or lesions noted General Skin Exam: no breakdown Psych affect normal Appearance: appropriate Results Lab / Micro Data Result Diagrams: 01/16/22 05:28 01/16/22 05:28 Assessment & Plan Assessment/Plan (1) Debility: (2) Frequent falls: (3) Atrial fibrillation: (4) Gastroesophageal reflux disease: (5) Benign prostatic hyperplasia: (6) Hypothyroidism: (7) Coronary artery disease: (8) Orthostatic hypotension: PLAN: Plan 86 year old male with below past medical history hospitalized for weakness, falls, failure to thrive, admitted to TCU with debility, here for re habilitation, strengthening, prior to discharge home alone. * Debility - PT/OT. * Cognition - ST. * Pain - Tylenol 1000mg q6h prn pain (1-10). * Bowel - senna/colace 1 tablet bid. * Adult immunization - Administer pneumonia vaccine, covid19 vaccine, flu vaccine as appropriate. * DVT prophylaxis - Hold. * Hypothyroidism - Levothyroxine 25mcg daily. * Atrial fibrillation - Metoprolol 12.5mg daily, stop Warfarin due to high risk of falls. * Orthostatic hypotension - Midodrine 5mg bidcm. * Coronary artery disease - Metoprolol 12.5mg daily, NTG 0.4mg q5m prn. * GERD - Pantoprazole 20mg daily. * BPH - Tamsulosin 0.4mg daily.
[2022-01-15] MEDS: Tamsulosin HCl 0.4 MG Capsule PO (21:32)
[2022-01-16 05:00] VITALS: BP 141/73; PULSE 59; RESP 16; TEMP 36.4; O2SAT 97
[2022-01-16] MEDS: Metoprolol Tartrate 25 MG Tablet 12.5 MG PO (05:00)
[2022-01-16] MEDS: Levothyroxine 25 MCG TABLET PO (05:01)
[2022-01-16] MEDS: Pantoprazole Sodium 20 MG Tablet PO (05:01)
[2022-01-16 06:01] LABS: Absolute Lymphocyte Count 1.16 X10^3/uL (0.83-4.51); Absolute Neutrophil Count 3.5 X10^3/uL (2.0-7.7); Basophil# 0.02 X10^3/uL; Basophil% 0.4 % (0-1); Eosinophils% 1.9 % (0-5); Hematocrit 30.9 % (40-54); Hemoglobin 10.3 g/dL (13.0-16.5); Lymphocyte # 1.16 X10^3/ul (0.83-4.51); Lymphocyte % 21.9 % (19-41); Mean Corp Hgb Conc 33.3 g/dL (32-36); Mean Corpuscular Hgb 30.4 pg (27.0-32.0); Mean Corpuscular Volume 91.2 fL (80-94); Mean Platelet Vol. 9.8 fl (6.2-12.0); Monocyte# 0.47 X10^3/uL; Monocyte% 8.9 % (0-10); NRBC Flagged by Analyzer 0 % (0-5); Neutrophil # 3.53 X10^3/uL (2.7-7.7); Neutrophil % 66.5 % (47-70); Platelet Count 163 K/mm3 (150-450); RBC Distribution Width CV 13.2 % (11.6-14.6); RBC Distribution Width SD 43.6 fl (35.1-43.9); Red Blood Count 3.39 M/mm3 (4.6-6.2); White Blood Count 5.3 K/mm3 (4.4-11.0)
[2022-01-16 06:26] LABS: Anion Gap 8 (5-15); BUN 23 mg/dL (7-18); BUN/Creat Ratio 21.9 RATIO (10-20); Calcium,Total 8.9 mg/dL (8.5-10.1); Chloride 111 mmol/L (98-107); Creatinine, Serum 1.05 mg/dL (0.70-1.30); EST Glomerular Filtration Rate 71 mL/min (>60); Est Glom Filt Rate - Afr Amer 86 mL/min (>60); Estimated Creatinine Clearance 43.56 ml/min; Glucose 98 mg/dL (74-106); Potassium 3.6 mmol/L (3.5-5.1); Sodium Level 141 mmol/L (136-145)
[2022-01-16] MEDS: Ensure Plus High Protein 120 ML LIQUID PO ×3 (08:37→16:30)
[2022-01-16] MEDS: Midodrine HCl 5 MG Tablet PO ×2 (08:37→16:30)
[2022-01-16 08:41] VITALS: BP 112/50; PULSE 87
[2022-01-16] MEDS: Tuberculin,Purif.prot.deriv. 50 TU/ML Vial 0.1 ML ID (11:16)
--- NOTE | 2022-01-16 13:00 | CASEMGMT ---
Social Work This social work nurse met with patient in room. Introduced self and social work nurse role. Patient agreeable to speak with this social work nurse. This social work nurse communicating patient insurance update due be due on 01/21/2022. This social work nurse communicating insurance update process and no guarantee of continued stay approval. Patient plans to return to home alone. Patient active with [facility]. This social work nurse noting that patient has a health care power of patent attorney and living will on chart with a Jose Houston identified a health care power of patent attorney. Patient states that Jose is patient brother and a few years ago. Patient aware that health care power of patent attorney would no longer be in place as patient does not have a secondary option. Patient with limited support in community and unsure of who patient would like for health care power of patent attorney. Patient states to not want sister in law as health care power of patent attorney. Patient states maybe my nephew. Patient plans to talk with nephew to see if that would be an option for health care power of patent attorney. This social work nurse encouraged patient to ask to speak with a social work nurse if patient would like to update health care power of patent attorney, patient voiced understanding. Patient wishes to be a full code, MOLST form completed. Active support and listening provided. Social Work to continue to follow. Karrie PYLE, NUNO
[2022-01-16 14:34] VITALS: BP 134/56; PULSE 90; RESP 14; TEMP 36.5; O2SAT 98
--- NOTE | 2022-01-16 14:35 | PHA.CONS_ITS ---
TCU RX Drug Regimen Review Subjective: 86 YOM admitted to TCU after hospitalization at [facility] for falls secondary to weakness. Admitted to TCU for rehabilitation and strengthening prior to discharge home where he lives alone. Objective: Allergies No Known Allergies Allergy (Verified 01/13/22 16:23) Current Medications Generic Name Dose Route Start Last Admin Trade Name Freq PRN Reason Stop Dose Admin Acetaminophen 1,000 mg 01/15/22 21:08 Acetaminophen 500 Mg Tablet PO Q6H PRN PRN pain 1-10 Compound Med 2 click 01/16/22 18:00 Arthritis Pain Compound 60 Click Tube TOPICAL BID [facility] Protocol Levothyroxine Sodium 25 mcg 01/16/22 06:00 01/16/22 05:01 Levothyroxine 25 Mcg Tablet PO 25 mcg DAILY JAIRO Administration Metoprolol Tartrate 12.5 mg 01/16/22 06:00 01/16/22 05:00 Metoprolol Tartrate 25 Mg Tablet PO 12.5 mg DAILY JAIRO Administration Midodrine 5 mg 01/16/22 08:00 01/16/22 08:37 Midodrine Hcl 5 Mg Tablet PO 5 mg BIDCM JAIRO Administration Nitroglycerin 0.4 mg 01/15/22 19:38 Nitroglycerin (Inpatient Use) 0.4 Mg Tab.Subl SL Q5M PRN CARDIAC/CHEST PAIN Nutritional Formula (Lactose Free) 120 ml 01/16/22 07:45 01/16/22 13:57 Ensure Plus High Protein 120 Ml Liquid PO 120 ml TIDCM JAIRO Administration Pantoprazole Sodium 20 mg 01/16/22 06:00 01/16/22 05:01 Pantoprazole Sodium 20 Mg Tablet PO 20 mg DAILY JAIRO Administration Senna/Docusate Sodium 1 tablet 01/16/22 06:00 01/16/22 05:01 Senna/Docusate Sodium 1 Tablet PO Not Given BID JAIRO Tamsulosin HCl 0.4 mg 01/15/22 22:00 01/15/22 21:32 Tamsulosin Hcl 0.4 Mg Capsule PO 0.4 mg QHS JAIRO Administration Tuberculin PPD 0.1 ml 01/23/22 10:00 Tuberculin,Purif.Prot.Deriv. 50 Tu/Ml Vial ID 01/23/22 10:01 X1 ONE Problem List (Last Reviewed 01/15/22 @ 21:[address] Jono Harrington MD) Orthostatic hypotension (Acute) Coronary artery disease (Acute) Hypothyroidism (Acute) Benign prostatic hyperplasia (Acute) Gastroesophageal reflux disease (Acute) Atrial fibrillation (Acute) Frequent falls (Acute) Debility (Acute) Vital Signs Temp Pulse Resp BP Pulse Ox O2 Del Method 97.7 F L 90 14 134/56 H 98 Room Air 01/16/22 14:34 01/16/22 14:34 01/16/22 14:34 01/16/22 14:34 01/16/22 14:34 01/16/22 14:34 Oxygen Delivery Method Room Air Weight: 59.874 kg Body Mass Index (BMI) 21.3 Sodium 141 mmol/L (136-145) 01/16/22 05:28 Potassium 3.6 mmol/L (3.5-5.1) 01/16/22 05:28 Chloride 111 mmol/L (98-107) H 01/16/22 05:28 Carbon Dioxide 22.0 mmol/L (21.0-32.0) 01/16/22 05:28 Anion Gap 8 (5-15) 01/16/22 05:28 BUN 23 mg/dL (7-18) H 01/16/22 05:28 Creatinine 1.05 mg/dL (0.70-1.30) 01/16/22 05:28 Est GFR (MDRD) Af Amer 86 mL/min (>60) 01/16/22 05:28 Est GFR (MDRD) Non-Af 71 mL/min (>60) 01/16/22 05:28 BUN/Creatinine Ratio 21.9 RATIO (10-20) H 01/16/22 05:28 Glucose 98 mg/dL (74-106) 01/16/22 05:28 Assessment/Plan: 1. Pain: Pain compound Cream topically BID, Tylenol 1000mg PO Q6h PRN Pain 1-10. Please continue to monitor for increased/decreased S/S pain, PRN medication usage, localized reactions at topical site. - The patient has required zero doses of Tylenol since admission. Pain appears to be well controlled at this time. 2. Afib/CAD: Lopressor 12.5mg PO Daily, Nitrostat PRN chest pain. Please continue to monitor BP (range 112-143/50-73), pulse (range 59-96), PRN medication usage. - Note: was previously on Warfarin therapy. Warfarin discontinued during hospitalization d/t risk of falls, fragility of patient. Anticoagulation not ordered for the previously mentioned reasons. 3.Hypothyroidism: Synthroid 25mcg PO Daily Please continue to monitor for S/S hyper/hypothyroidism. Please continue to monitor TSH levels as clinically indicated (last TSH drawn 11/03/21- WNL). 4. Orthostatic Hypotension: midodrine 5mg PO BIDCM. Please continue to monitor for S/S dizziness, faintness, BP (range 112-143/50-73). 5. GERD: Protonix 20mg PO Daily. Please continue to monitor for abdominal pain, stomach upset, headache. May also encourage non-pharmacologic treatments to help minimize GERD exacerbations as well. 6. BPH: Flomax 0.4mg PO Daily. Please continue to monitor for improvement in urinary symptoms. 7. Bowel: Senna/Docusate 1 tab PO BID. Please continue to monitor for increased/decreased constipation and/or diarrhea. -The patient has not had a bowel movement yet, but has been admitted <48hrs at time of medlist review. Assessment/Plan for indications treated with psychotropic medications: -The patient is not currently on any psychotropic medications at time of medlist review. Medical chart and medication regimen reviewed. The following medication irregularities or issues were identified: - No irregularities were identified at time of medication list review. Date of Note:: 01/16/22
[2022-01-16] MEDS: Senna/Docusate Sodium 1 Tablet PO (16:30)
[2022-01-16] MEDS: Arthritis Pain Compound 60 CLICK TUBE TOPICAL (16:31)
[2022-01-16] MEDS: Tamsulosin HCl 0.4 MG Capsule PO (19:49)
[2022-01-16 22:00] VITALS: PULSE 86; RESP 16; O2SAT 97
[2022-01-17] MEDS: Levothyroxine 25 MCG TABLET PO (05:07)
[2022-01-17] MEDS: Senna/Docusate Sodium 1 Tablet PO ×2 (05:07→17:27)
[2022-01-17] MEDS: Arthritis Pain Compound 60 CLICK TUBE TOPICAL ×2 (05:07→17:28)
[2022-01-17] MEDS: Pantoprazole Sodium 20 MG Tablet PO (05:07)
[2022-01-17 05:13] VITALS: BP 111/66; PULSE 58
[2022-01-17] MEDS: Ensure Plus High Protein 120 ML LIQUID PO ×3 (08:51→17:27)
[2022-01-17] MEDS: Midodrine HCl 5 MG Tablet PO ×2 (08:51→17:28)
[2022-01-17 11:31] VITALS: PULSE 100; RESP 16; O2SAT 96
[2022-01-17 16:00] VITALS: BP 111/49; PULSE 45; RESP 16; TEMP 36.6; O2SAT 96
[2022-01-17] MEDS: Tamsulosin HCl 0.4 MG Capsule PO (19:55)
[2022-01-18 04:20] VITALS: BP 121/56; PULSE 93
[2022-01-18] MEDS: Metoprolol Tartrate 25 MG Tablet 12.5 MG PO (04:20)
[2022-01-18] MEDS: Arthritis Pain Compound 60 CLICK TUBE TOPICAL ×2 (04:20→16:35)
[2022-01-18] MEDS: Pantoprazole Sodium 20 MG Tablet PO (04:21)
[2022-01-18] MEDS: Levothyroxine 25 MCG TABLET PO (04:21)
[2022-01-18] MEDS: Senna/Docusate Sodium 1 Tablet PO ×2 (04:23→16:34)
[2022-01-18] MEDS: Midodrine HCl 5 MG Tablet PO ×2 (08:36→16:34)
[2022-01-18] MEDS: Ensure Plus High Protein 120 ML LIQUID PO ×3 (08:36→16:34)
--- NOTE | 2022-01-18 14:36 | NURSING ---
assisted pt back from BR to bed, pt did lose his balance once when turning, but caught himself
[2022-01-18 16:00] VITALS: BP 102/48; PULSE 63; RESP 15; TEMP 36; O2SAT 97
[2022-01-18] MEDS: Tamsulosin HCl 0.4 MG Capsule PO (21:34)
[2022-01-18] MEDS: Glycerin/Hypromellose/PEG400 15 ml Bottle 1 DRP EACH EYE (21:34)
[2022-01-19] MEDS: Arthritis Pain Compound 60 CLICK TUBE TOPICAL ×2 (04:46→17:32)
[2022-01-19 04:47] VITALS: BP 127/73; PULSE 70
[2022-01-19] MEDS: Metoprolol Tartrate 25 MG Tablet 12.5 MG PO (04:47)
[2022-01-19] MEDS: Glycerin/Hypromellose/PEG400 15 ml Bottle 1 DRP EACH EYE ×3 (04:47→21:59)
[2022-01-19] MEDS: Levothyroxine 25 MCG TABLET PO (04:48)
[2022-01-19] MEDS: Pantoprazole Sodium 20 MG Tablet PO (04:48)
--- NOTE | 2022-01-19 06:58 | NURSING ---
Pt declines to put dentures in this am, stating the fit is causing pain.
[2022-01-19] MEDS: Ensure Plus High Protein 120 ML LIQUID PO ×2 (08:38→12:20)
[2022-01-19] MEDS: Midodrine HCl 5 MG Tablet PO ×2 (08:40→17:30)
[2022-01-19 10:05] VITALS: BP 138/72; PULSE 88; RESP 18; TEMP 37; O2SAT 97
[2022-01-19 14:17] VITALS: BP 131/58; PULSE 96; RESP 14; TEMP -13.2; TEMP 8.2; O2SAT 96
[2022-01-19] MEDS: Senna/Docusate Sodium 1 Tablet PO (17:30)
[2022-01-19] MEDS: Acetaminophen 500 MG Tablet 1000 MG PO (20:13)
[2022-01-19] MEDS: Tamsulosin HCl 0.4 MG Capsule PO (21:59)
[2022-01-20] MEDS: Glycerin/Hypromellose/PEG400 15 ml Bottle 1 DRP EACH EYE ×3 (04:40→19:42)
[2022-01-20] MEDS: Levothyroxine 25 MCG TABLET PO (04:40)
[2022-01-20] MEDS: Pantoprazole Sodium 20 MG Tablet PO (04:40)
[2022-01-20] MEDS: Arthritis Pain Compound 60 CLICK TUBE TOPICAL ×2 (04:40→17:09)
[2022-01-20 04:43] VITALS: BP 129/56; PULSE 78
[2022-01-20] MEDS: Metoprolol Tartrate 25 MG Tablet 12.5 MG PO (04:43)
[2022-01-20] MEDS: Senna/Docusate Sodium 1 Tablet PO (04:46)
[2022-01-20] MEDS: Ensure Plus High Protein 120 ML LIQUID PO ×2 (07:46→11:10)
[2022-01-20] MEDS: Midodrine HCl 5 MG Tablet PO ×2 (07:46→17:09)
[2022-01-20 14:58] VITALS: BP 93/52; PULSE 62; RESP 16; TEMP 36.7; O2SAT 99
[2022-01-20] MEDS: Tamsulosin HCl 0.4 MG Capsule PO (19:42)
[2022-01-20 22:00] VITALS: PULSE 72; RESP 16; O2SAT 97
[2022-01-21] MEDS: Pantoprazole Sodium 20 MG Tablet PO (04:59)
[2022-01-21] MEDS: Glycerin/Hypromellose/PEG400 15 ml Bottle 1 DRP EACH EYE ×3 (04:59→21:44)
[2022-01-21] MEDS: Levothyroxine 25 MCG TABLET PO (04:59)
[2022-01-21] MEDS: Arthritis Pain Compound 60 CLICK TUBE TOPICAL ×2 (04:59→17:32)
[2022-01-21 05:00] VITALS: BP 123/72; PULSE 84
[2022-01-21] MEDS: Metoprolol Tartrate 25 MG Tablet 12.5 MG PO (05:00)
[2022-01-21] MEDS: Ensure Plus High Protein 120 ML LIQUID PO ×2 (07:52→14:12)
[2022-01-21] MEDS: Midodrine HCl 5 MG Tablet PO ×2 (07:52→17:32)
[2022-01-21 09:39] VITALS: PULSE 68
--- NOTE | 2022-01-21 12:08 | CASEMGMT ---
BIMS and PHQ9 interviews completed on this date for MDS assessment. ILANA Novak
--- NOTE | 2022-01-21 13:21 | CASEMGMT ---
Addendum entered by Suzette Quezada 01/21/22 14:43: After the care plan meeting, pt's ROSALIA contacted this worker wanting to explain pts living condition. ROSALIA stated pt lives on her property in a mobile home, but there are holes in the floor that are covered by pieces of carpet. There are bee's nest. 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 I don't think these are great living conditions. ROSALIA states pt does not pay rent from ROSALIA, only utilities. SW asked if ROSALIA she can pay for these repairs or ask pt to pay for repairs, as this seems like ROSALIA is the landlord, but pt does not pay rent. ROSALIA stated she doesn't want to get into it with him. SW asked if she had contacted [facility] before as they may be able to assist. However, explained pt is competent and can make his own decisions on how and where he would like to live. ROSALIA agreed to contact [facility]. SW provided contact information. SW to investigate further to have a goal of a safe DC plan. Original Note: Social Work IDT met with patient and ROSALIA via conference call for care plan meeting. Discussed patient's progress in PT/OT/SN. Educated to [facility] insurance with NRD 01/23 and continued stay is not guaranteed. Insurance did indicate issuing DC date and inquired to pt/family if ready to DC home alone. Pt feels ready but family expressed concerns as they are out of town until 01/27. SW discussed and provided resources for medical alerts, home delivered meals and nonskilled CONSTRUCTION PROJECT COORDINATOR. SW to order skilled HHC at DC and pt will resume with [facility]N. SW to continue to follow. Suzette Quezada, DISTRICT SUPERVISOR SECURITY SOLUTIONS ARCHITECT
--- NOTE | 2022-01-21 14:47 | NURSING ---
Property Management Specialist Note; Activity Asst: complete
[2022-01-21 15:27] VITALS: BP 107/83; PULSE 79; RESP 16; TEMP 36.9; O2SAT 100
[2022-01-21] MEDS: Senna/Docusate Sodium 1 Tablet PO (17:32)
[2022-01-21] MEDS: Tamsulosin HCl 0.4 MG Capsule PO (21:46)
[2022-01-22] MEDS: Arthritis Pain Compound 60 CLICK TUBE TOPICAL ×2 (06:14→16:46)
[2022-01-22] MEDS: Glycerin/Hypromellose/PEG400 15 ml Bottle 1 DRP EACH EYE ×3 (06:14→20:06)
[2022-01-22] MEDS: Pantoprazole Sodium 20 MG Tablet PO (06:17)
[2022-01-22] MEDS: Senna/Docusate Sodium 1 Tablet PO ×2 (06:17→16:46)
[2022-01-22] MEDS: Levothyroxine 25 MCG TABLET PO (06:17)
[2022-01-22 06:21] VITALS: BP 101/54; PULSE 58
[2022-01-22] MEDS: Metoprolol Tartrate 25 MG Tablet 12.5 MG PO (06:21)
[2022-01-22] MEDS: Midodrine HCl 5 MG Tablet PO ×2 (08:16→16:46)
[2022-01-22] MEDS: Ensure Plus High Protein 120 ML LIQUID PO ×2 (08:16→13:29)
--- NOTE | 2022-01-22 08:18 | NURSING ---
pt requesting to speak with long term care social worker about going home, message left with Suzette.
[2022-01-22 10:00] VITALS: PULSE 88; RESP 16; O2SAT 98
[2022-01-22 13:47] VITALS: BP 105/53; PULSE 88; RESP 16; TEMP 36.5; O2SAT 97
--- NOTE | 2022-01-22 16:57 | CASEMGMT ---
Social Work Spoke with CCN REVERBERATORY FURNACE OPERATOR to discuss pt's home condition. REVERBERATORY FURNACE OPERATOR confirmed there are soft spots in the floor where holes are under the carpet. Pt also has 5 steep steps into the mobile home. REVERBERATORY FURNACE OPERATOR concerned if pt is using a FWW to ambulate, how to safely get into home and navigate throughout home. REVERBERATORY FURNACE OPERATOR reports to attempting to assist with resources in the home for pt but pt denies all assistance. SW spoke with pt to discuss home conditions. Pt confirmed there are holes/soft spots in several areas of the home and steps to enter, but steps have 2 handrails. SW expressed concerns with pt returning home with these conditions. Inquired about getting these areas fixed. Pt reluctant, but agreed to contact ROSALIA to get repairs scheduled. Pt to begin practicing steps in therapy as well. SUNG received voicemail from Min at [facility] inquiring about situation as ROSALIA did contact [facility]. SW returned call and left a message. SW to continue to follow. Suzette Quezada, ENTERTAINMENT DANCER PIPE COVERER HELPER
[2022-01-22] MEDS: Tamsulosin HCl 0.4 MG Capsule PO (20:06)
[2022-01-23 05:21] VITALS: BP 114/51; PULSE 73
[2022-01-23] MEDS: Metoprolol Tartrate 25 MG Tablet 12.5 MG PO (05:21)
[2022-01-23] MEDS: Glycerin/Hypromellose/PEG400 15 ml Bottle 1 DRP EACH EYE ×3 (05:21→21:06)
[2022-01-23] MEDS: Arthritis Pain Compound 60 CLICK TUBE TOPICAL ×2 (05:21→17:39)
[2022-01-23] MEDS: Pantoprazole Sodium 20 MG Tablet PO (05:23)
[2022-01-23] MEDS: Levothyroxine 25 MCG TABLET PO (05:23)
[2022-01-23] MEDS: Senna/Docusate Sodium 1 Tablet PO (05:23)
[2022-01-23 05:43] LABS: Absolute Lymphocyte Count 1.88 X10^3/uL (0.83-4.51); Absolute Neutrophil Count 3.4 X10^3/uL (2.0-7.7); Basophil# 0.05 X10^3/uL; Basophil% 0.8 % (0-1); Eosinophil# 0.23 X10^3/uL; Eosinophils% 3.7 % (0-5); Hematocrit 32.7 % (40-54); Hemoglobin 11.1 g/dL (13.0-16.5); Lymphocyte # 1.88 X10^3/ul (0.83-4.51); Mean Corp Hgb Conc 33.9 g/dL (32-36); Mean Corpuscular Hgb 30.9 pg (27.0-32.0); Mean Corpuscular Volume 91.1 fL (80-94); Mean Platelet Vol. 9.5 fl (6.2-12.0); Monocyte# 0.66 X10^3/uL; Monocyte% 10.5 % (0-10); NRBC Flagged by Analyzer 0 % (0-5); Neutrophil # 3.42 X10^3/uL (2.7-7.7); Neutrophil % 54.7 % (47-70); Platelet Count 258 K/mm3 (150-450); RBC Distribution Width CV 13.2 % (11.6-14.6); RBC Distribution Width SD 43.5 fl (35.1-43.9); Red Blood Count 3.59 M/mm3 (4.6-6.2); White Blood Count 6.3 K/mm3 (4.4-11.0)
[2022-01-23 06:12] LABS: Anion Gap 6 (5-15); BUN 21 mg/dL (7-18); BUN/Creat Ratio 21.7 RATIO (10-20); Calcium,Total 9.7 mg/dL (8.5-10.1); Chloride 106 mmol/L (98-107); Creatinine, Serum 0.97 mg/dL (0.70-1.30); EST Glomerular Filtration Rate 78 mL/min (>60); Est Glom Filt Rate - Afr Amer 95 mL/min (>60); Estimated Creatinine Clearance 45.08 ml/min; Glucose 100 mg/dL (74-106); Potassium 4.1 mmol/L (3.5-5.1); Sodium Level 140 mmol/L (136-145)
[2022-01-23] MEDS: Ensure Plus High Protein 120 ML LIQUID PO ×2 (07:44→11:51)
[2022-01-23] MEDS: Midodrine HCl 5 MG Tablet PO ×2 (09:14→17:40)
[2022-01-23] MEDS: Tuberculin,Purif.prot.deriv. 50 TU/ML Vial 0.1 ML ID (11:52)
[2022-01-23 16:00] VITALS: BP 129/72; PULSE 60; RESP 16; TEMP 36.7; O2SAT 100
[2022-01-23] MEDS: Tamsulosin HCl 0.4 MG Capsule PO (21:05)
[2022-01-24] MEDS: Arthritis Pain Compound 60 CLICK TUBE TOPICAL ×2 (05:30→17:27)
[2022-01-24 05:31] VITALS: PULSE 84
[2022-01-24] MEDS: Pantoprazole Sodium 20 MG Tablet PO (05:31)
[2022-01-24] MEDS: Levothyroxine 25 MCG TABLET PO (05:31)
[2022-01-24] MEDS: Senna/Docusate Sodium 1 Tablet PO ×2 (05:31→17:29)
[2022-01-24] MEDS: Metoprolol Tartrate 25 MG Tablet 12.5 MG PO (05:31)
[2022-01-24] MEDS: Glycerin/Hypromellose/PEG400 15 ml Bottle 1 DRP EACH EYE ×3 (05:33→20:42)
[2022-01-24] MEDS: Midodrine HCl 5 MG Tablet PO ×2 (08:08→17:29)
[2022-01-24 11:05] VITALS: BP 101/46; PULSE 79; RESP 20; TEMP 36.3; O2SAT 98
[2022-01-24] MEDS: Ensure Plus High Protein 120 ML LIQUID PO (11:57)
[2022-01-24] MEDS: Tamsulosin HCl 0.4 MG Capsule PO (20:42)
[2022-01-25] MEDS: Pantoprazole Sodium 20 MG Tablet PO (06:32)
[2022-01-25] MEDS: Levothyroxine 25 MCG TABLET PO (06:32)
[2022-01-25] MEDS: Glycerin/Hypromellose/PEG400 15 ml Bottle 1 DRP EACH EYE ×3 (06:32→20:24)
[2022-01-25] MEDS: Senna/Docusate Sodium 1 Tablet PO ×2 (06:33→17:47)
[2022-01-25 06:34] VITALS: BP 112/58; PULSE 59
--- NOTE | 2022-01-25 06:38 | NURSING ---
Pt requests compound cream be applied after bathing this am.
[2022-01-25] MEDS: Ensure Plus High Protein 120 ML LIQUID PO ×2 (08:27→17:51)
[2022-01-25] MEDS: Midodrine HCl 5 MG Tablet PO ×2 (08:27→17:47)
[2022-01-25] MEDS: Arthritis Pain Compound 60 CLICK TUBE TOPICAL ×2 (08:27→17:47)
[2022-01-25 14:32] VITALS: BP 116/59; PULSE 90; RESP 16; TEMP 36.7; O2SAT 100
[2022-01-25] MEDS: Tamsulosin HCl 0.4 MG Capsule PO (20:24)
[2022-01-25 21:00] VITALS: O2SAT 95
[2022-01-26] MEDS: Pantoprazole Sodium 20 MG Tablet PO (05:32)
[2022-01-26 05:33] VITALS: BP 136/86; PULSE 108
[2022-01-26] MEDS: Metoprolol Tartrate 25 MG Tablet 12.5 MG PO (05:33)
[2022-01-26] MEDS: Senna/Docusate Sodium 1 Tablet PO ×2 (05:33→17:27)
[2022-01-26] MEDS: Arthritis Pain Compound 60 CLICK TUBE TOPICAL ×2 (05:35→17:27)
[2022-01-26] MEDS: Levothyroxine 25 MCG TABLET PO (05:35)
[2022-01-26] MEDS: Glycerin/Hypromellose/PEG400 15 ml Bottle 1 DRP EACH EYE ×3 (05:40→20:22)
[2022-01-26] MEDS: Midodrine HCl 5 MG Tablet PO ×2 (08:22→17:26)
[2022-01-26] MEDS: Ensure Plus High Protein 120 ML LIQUID PO ×2 (08:25→17:30)
--- NOTE | 2022-01-26 10:17 | CASEMGMT ---
Social Work Followed up with pt. Pt stated work on his mobile home started yesterday in fixing the floors and removing the bees nest. SW commended pt for getting work done. SW suggested setting up [facility] today as well. Pt agreed. Insurance NRD 01/27 with anticipated LCD being issued. pt expressed understanding. SW to follow. Suzette Quezada, OLERICULTURE PROFESSOR ABSORPTION OPERATOR
[2022-01-26 14:26] VITALS: BP 124/60; PULSE 92; RESP 15; TEMP 36.7; O2SAT 97
[2022-01-26] MEDS: Tamsulosin HCl 0.4 MG Capsule PO (20:22)
[2022-01-26 21:00] VITALS: PULSE 67; RESP 16; O2SAT 99
[2022-01-27] MEDS: Glycerin/Hypromellose/PEG400 15 ml Bottle 1 DRP EACH EYE ×3 (05:05→20:09)
[2022-01-27] MEDS: Arthritis Pain Compound 60 CLICK TUBE TOPICAL ×2 (05:05→17:21)
[2022-01-27] MEDS: Senna/Docusate Sodium 1 Tablet PO ×2 (05:06→17:21)
[2022-01-27] MEDS: Levothyroxine 25 MCG TABLET PO (05:06)
[2022-01-27] MEDS: Pantoprazole Sodium 20 MG Tablet PO (05:06)
[2022-01-27 05:12] VITALS: BP 101/47; PULSE 84; RESP 18
[2022-01-27] MEDS: Ensure Plus High Protein 120 ML LIQUID PO ×2 (08:10→17:20)
[2022-01-27] MEDS: Midodrine HCl 5 MG Tablet PO ×2 (08:12→17:21)
[2022-01-27 08:14] VITALS: BP 96/42; PULSE 78
[2022-01-27 08:16] VITALS: BP 96/42; PULSE 78
[2022-01-27 10:30] VITALS: BP 118/52; PULSE 70; RESP 16; O2SAT 98
--- NOTE | 2022-01-27 13:08 | CASEMGMT ---
Social Work Insurance issued LCD 01/29, DC 01/30. Spoke with pt on DC date and pt agreeable. IDT recommending HHC. Pt agreeable. SW provided a printed skilled HHC list of providers including quality and resource use data and consistent with the patient?s preferred geographic region, medical needs, and insurance network via [employer]. Pt to review list and notify SW of preference. No DME needs. ROSALIA to transport. SW to update Min at [facility] on DC date and the work being done in pts home. Plan: DC home alone 01/30, HHC PT/OT/SN/SUNG, [facility] Suzette Quezada LIBRARY SCIENCE INSTRUCTOR CATTLE SHIPPER
[2022-01-27 13:45] VITALS: BP 86/49; PULSE 69; RESP 16; TEMP 36.6; O2SAT 99
[2022-01-27 14:18] VITALS: BP 112/66
--- NOTE | 2022-01-27 18:46 | DS.PCM_ITS ---
Providers Date of Admission: 01/15/22 Primary Care Physician: Dr. Jono Harrington MD Reason For Visit: MECHANICAL FALL Diagnosis Discharge Diagnosis (1) Debility: Status: Acute Code(s): R53.81 - Other malaise (2) Frequent falls: Status: Acute Code(s): R29.6 - Repeated falls (3) Atrial fibrillation: Status: Acute Code(s): I48.91 - Unspecified atrial fibrillation (4) Gastroesophageal reflux disease: Status: Acute Code(s): K21.9 - Gastro-esophageal reflux disease without esophagitis (5) Benign prostatic hyperplasia: Status: Acute Code(s): N40.0 - Benign prostatic hyperplasia without lower urinary tract symptoms (6) Hypothyroidism: Status: Acute Code(s): E03.9 - Hypothyroidism, unspecified (7) Coronary artery disease: Status: Acute Code(s): I25.10 - Atherosclerotic heart disease of [place] coronary artery without angina pectoris (8) Orthostatic hypotension: Status: Acute Code(s): I95.1 - Orthostatic hypotension Plan 86 year old male with below past medical history hospitalized for weakness, falls, failure to thrive, admitted to TCU with debility, here for rehabilitation, strengthening, prior to discharge home alone. * Debility - PT/OT. * Cognition - ST. * Pain - Tylenol 1000mg q6h prn pain (1-10). * Bowel - senna/colace 1 tablet bid. * Adult immunization - Administer pneumonia vaccine, covid19 vaccine, flu vaccine as appropriate. * DVT prophylaxis - Hold. * Hypothyroidism - Levothyroxine 25mcg daily. * Atrial fibrillation - Metoprolol 12.5mg daily, stop Warfarin due to high risk of falls. * Orthostatic hypotension - Midodrine 5mg bidcm. * Coronary artery disease - Metoprolol 12.5mg daily, NTG 0.4mg q5m prn. * GERD - Pantoprazole 20mg daily. * BPH - Tamsulosin 0.4mg daily. Medications at Discharge Home Medications omeprazole 20 mg capsule,delayed release 20 mg PO DAILY GERD 02/19/15 tamsulosin 0.4 mg capsule 0.4 mg PO QHS prostate 07/29/17 nitroglycerin 0.4 mg sublingual tablet 0.4 mg sublingual Q5M PRN CHEST PAIN #25 tabs 04/23/20 levothyroxine 25 mcg tablet 25 mcg PO DAILY THYROID 07/10/20 metoprolol tartrate 25 mg tablet 12.5 mg PO DAILY bp 01/13/22 midodrine 5 mg tablet 5 mg PO BID bp 01/13/22 Hospital Course Operations None Procedures None Summary of Care Provided Minutes Spent on Discharge: 35 Hospital Course: 86 year old male with below past medical history hospitalized for weakness, falls, failure to thrive, admitted to TCU with debility, here for rehabilitation , strengthening, prior to discharge home alone. Discharge home alone 01/30/2022, Home Health Care PT/OT/SN/SW/APS. Physical Exam Const alert General Appearance: cooperative HEENT normocephalic Eyes PERRL and EOMs intact bilaterally Neck supple, no JVD and no carotid bruits Resp normal respiratory effort, normal air movement and clear to auscultation bilaterally Cardio regular rate and regular rhythm GI normal to inspection, nondistended, normoactive bowel sounds, non-tender and non-distended Extremity normal capillary refill General Extremity: Negative for edema Skin no rashes or lesions noted General Skin Exam: no breakdown Psych affect normal Appearance: appropriate Medical Records Data Medical Nutrition Assessment Dietitian: Malnutrition Criteria Met Start: 01/23/22 15:35 Freq: Status: Active Protocol: Document 01/23/22 15:35 (Rec: 01/23/22 15:35 [id number]) Nutrition Malnutrition Evidence of Malnutrition Exists Yes Malnutrition (moderate): Acute Illness/Injury Evidenced By Suboptimal Energy Intake ( Moderate),Weight Loss (Severe) Intake Problem Inadequate Oral Intake Etiology d/t decreased appetite Signs/Symptoms as evidenced by estimated PO intake meeting ~50-75% of estimated energy needs; unintentional wt loss of 2.6kg /4.3% wt loss x 1 week Status Active Problem Clinical Problem Acute Disease or Injury Related Malnutrition Etiology moderate, acute malnutrition related to inadequate energy intake, decreased appetite Signs/Symptoms as evidenced by estimated PO intake meeting ~50-75% of estimated energy needs; unintentional wt loss of 2.6kg /4.3% wt loss x 1 week Status Active Problem Recommendation Dietitian Recommendations/Changes continue regular diet given signs/symptoms of malnutrition ; will continue ensure plus high protein 120mL TID for additional calories/protein if consumed; whole milk w/ meals Weight / BMI Weight Weight: 58.377 kg Body Mass Index (BMI) 21.3 ABG / Lab / Microbiology Data Result Diagrams: 01/23/22 05:15 01/23/22 05:15 Microbiology: Microbiology 01/22/22 05:40 Nasal Secretion SARS-CoV-2 Antigen (Rapid) - Final D/C Instructions Discharge Diet: No restrictions Discharge Activity: Return to Normal Activity, May Shower and Use Walker Weight Bearing Status: Weight bearing as tolerated Call your doctor if you observe: Fever of 101 or Higher, Inability to urinate, Inability to have a bowel movement, Shortness of breath, Dizziness, Fainting spells, Swelling in the ankles, Chest pain and Uncontrolled pain Additional Instructions: Discharge home alone 01/30/2022, Home Health Care PT/OT/SN/SW/APS. Meaningful Use Info Meaningful Use Diagnoses (Choose all that apply): None applicable Discharge Plan Admission Admit Date/Time: 01/15/22 18:26 Primary Reason for Your Visit: Debility. Attending Provider: Jono Harrington Chi Primary Care Provider: Jono Harrington Chi Instructions Additional Instructions / Restrictions: Discharge home alone 01/30/2022, Home Health Care PT/OT/SN/SW/APS. Discharge Orders/Prescriptions Prescriptions: Continued omeprazole 20 MG capsule 20 mg PO DAILY Label Comments: reflux tamsulosin 0.4 MG capsule,extended release 24hr 0.4 mg PO QHS levothyroxine 25 MCG tablet 25 mcg PO DAILY midodrine 5 mg tablet 5 mg PO BID Rx Instructions: do not give last dose of day after 6PM or within 4 hrs of bedtime metoprolol tartrate 25 mg tablet 12.5 mg PO DAILY nitroglycerin 0.4 mg tablet, sublingual 0.4 mg sublingual Q5M PRN (Reason: CHEST PAIN) Qty: 25 3RF Label Comments: chest pain Rx Instructions: 1 tablet sublingual every 5 minutes x 3 for chest pain, if unresolved call 911 Discontinued acetaminophen 325 mg Tablet 650 mg PO BID PRN PRN (Reason: pain 1-10) warfarin 4 mg tablet 4 mg PO SUMOTUTHFR Protocol: Dose Management Condition: Wednesday Dose/Route: 6 mg Instruction: 1.5 x 4 mg tablets Condition: Wednesday Dose/Route: 6 mg Instruction: 1.5 x 4 mg tablets Condition: Wednesday Dose/Route: 4 mg Instruction: 1 x 4 mg tablet Condition: Wednesday Dose/Route: 6 mg Instruction: 1.5 x 4 mg tablets Condition: Dose/Route: 6 mg Instruction: 1.5 x 4 mg tablets Condition: Wednesday Dose/Route: 6 mg Instruction: 1.5 x 4 mg tablets Condition: Wednesday Dose/Route: 6 mg Instruction: 1.5 x 4 mg tablets Protocol Text: Adjustment Start Date: Wednesday12/30/21 INR Value: 2.4 INR Date: 12/30/21 Recheck Date: 01/06/22 Label Comments: TAKE 1 1/2 TABLETS BY MOUTH WEDNESDAY THRU WEDNESDAY AND 1 TABLET WEDNESDAY, WEDNESDAY AND WEDNESDAY OR DIRECTED Rx Instructions: 4 mg daily except Wednesday and Wednesday warfarin 5 mg tablet 5 mg PO WESA Rx Instructions: 5 mg on Wednesday and Wednesday ondansetron 4 mg tablet,disintegrating 4 mg PO Q6H PRN PRN (Reason: nausea and vomiting) Referrals / Follow Up: Jono Harrington Chi, MD [Primary Care Provider] - Within 1 Week Disposition Disposition (needs filled in before D/C Order can be placed[facility]
[2022-01-27] MEDS: Tamsulosin HCl 0.4 MG Capsule PO (20:10)
[2022-01-28] MEDS: Arthritis Pain Compound 60 CLICK TUBE TOPICAL ×2 (05:38→17:26)
[2022-01-28] MEDS: Senna/Docusate Sodium 1 Tablet PO ×2 (05:38→17:26)
[2022-01-28] MEDS: Levothyroxine 25 MCG TABLET PO (05:38)
[2022-01-28] MEDS: Pantoprazole Sodium 20 MG Tablet PO (05:39)
[2022-01-28] MEDS: Ensure Plus High Protein 120 ML LIQUID PO ×3 (07:45→17:25)
[2022-01-28 07:47] VITALS: BP 134/62; PULSE 60
[2022-01-28] MEDS: Metoprolol Tartrate 25 MG Tablet 12.5 MG PO (07:47)
[2022-01-28] MEDS: Midodrine HCl 5 MG Tablet PO ×2 (07:48→17:26)
--- NOTE | 2022-01-28 08:59 | MDS.RN ---
Information for the mds was obtained from review of the clinical record, interview of resident, staff, and direct observation of resident's care.
[2022-01-28] MEDS: Glycerin/Hypromellose/PEG400 15 ml Bottle 1 DRP EACH EYE ×2 (13:59→20:04)
[2022-01-28 14:40] VITALS: BP 105/67; PULSE 79; RESP 16; TEMP 36.1; O2SAT 94
--- NOTE | 2022-01-28 15:08 | CASEMGMT ---
Social Work Spoke with pt on HHC preference. [facility] SW made referral via phone and [facility] to [facility] for PT/OT/SN/SW. SW updated CCN and APS. Suzette Quezada, ELECTRICAL ENGINEER MEP HEAVY MEDIA OPERATOR
[2022-01-28] MEDS: Tamsulosin HCl 0.4 MG Capsule PO (20:03)
[2022-01-28 22:16] VITALS: PULSE 88; RESP 16; O2SAT 95
[2022-01-29] MEDS: Glycerin/Hypromellose/PEG400 15 ml Bottle 1 DRP EACH EYE ×3 (05:04→19:49)
[2022-01-29] MEDS: Arthritis Pain Compound 60 CLICK TUBE TOPICAL ×2 (05:04→16:24)
[2022-01-29] MEDS: Senna/Docusate Sodium 1 Tablet PO ×2 (05:05→16:24)
[2022-01-29] MEDS: Pantoprazole Sodium 20 MG Tablet PO (05:05)
[2022-01-29] MEDS: Levothyroxine 25 MCG TABLET PO (05:05)
[2022-01-29] MEDS: Ensure Plus High Protein 120 ML LIQUID PO ×3 (08:06→16:23)
[2022-01-29] MEDS: Midodrine HCl 5 MG Tablet PO ×2 (08:06→16:23)
[2022-01-29 08:08] VITALS: BP 142/58; PULSE 71
[2022-01-29] MEDS: Metoprolol Tartrate 25 MG Tablet 12.5 MG PO (08:08)
[2022-01-29 15:53] VITALS: BP 96/42; PULSE 71; RESP 16; TEMP 36.7; O2SAT 99
[2022-01-29] MEDS: Tamsulosin HCl 0.4 MG Capsule PO (19:49)
[2022-01-30 05:48] LABS: Absolute Lymphocyte Count 1.72 X10^3/uL (0.83-4.51); Absolute Neutrophil Count 3.2 X10^3/uL (2.0-7.7); Basophil# 0.05 X10^3/uL; Basophil% 0.9 % (0-1); Eosinophil# 0.09 X10^3/uL; Eosinophils% 1.6 % (0-5); Hematocrit 33.3 % (40-54); Hemoglobin 10.7 g/dL (13.0-16.5); Lymphocyte # 1.72 X10^3/ul (0.83-4.51); Lymphocyte % 30.2 % (19-41); Mean Corp Hgb Conc 32.1 g/dL (32-36); Mean Corpuscular Hgb 29.9 pg (27.0-32.0); Mean Platelet Vol. 9.5 fl (6.2-12.0); Monocyte# 0.59 X10^3/uL; Monocyte% 10.4 % (0-10); NRBC Flagged by Analyzer 0 % (0-5); Neutrophil # 3.23 X10^3/uL (2.7-7.7); Neutrophil % 56.5 % (47-70); Platelet Count 245 K/mm3 (150-450); RBC Distribution Width CV 13.2 % (11.6-14.6); Red Blood Count 3.58 M/mm3 (4.6-6.2); White Blood Count 5.7 K/mm3 (4.4-11.0)
[2022-01-30] MEDS: Arthritis Pain Compound 60 CLICK TUBE TOPICAL (06:28)
[2022-01-30] MEDS: Glycerin/Hypromellose/PEG400 15 ml Bottle 1 DRP EACH EYE (06:29)
[2022-01-30] MEDS: Pantoprazole Sodium 20 MG Tablet PO (06:29)
[2022-01-30] MEDS: Senna/Docusate Sodium 1 Tablet PO (06:29)
[2022-01-30] MEDS: Levothyroxine 25 MCG TABLET PO (06:29)
[2022-01-30 06:35] LABS: Anion Gap 7 (5-15); BUN 29 mg/dL (7-18); BUN/Creat Ratio 30.3 RATIO (10-20); Calcium,Total 9.3 mg/dL (8.5-10.1); Chloride 107 mmol/L (98-107); Creatinine, Serum 0.96 mg/dL (0.70-1.30); EST Glomerular Filtration Rate 79 mL/min (>60); Est Glom Filt Rate - Afr Amer 96 mL/min (>60); Estimated Creatinine Clearance 46.45 ml/min; Glucose 100 mg/dL (74-106); Potassium 4.2 mmol/L (3.5-5.1); Sodium Level 141 mmol/L (136-145)
[2022-01-30] MEDS: Midodrine HCl 5 MG Tablet PO (08:27)
[2022-01-30 08:29] VITALS: BP 108/72; PULSE 82
[2022-01-30] MEDS: Metoprolol Tartrate 25 MG Tablet 12.5 MG PO (08:29)
[2022-01-30] MEDS: Ensure Plus High Protein 120 ML LIQUID PO (08:29)
[2022-01-30 08:30] VITALS: BP 108/72; PULSE 82; RESP 16; TEMP 36.7; O2SAT 98
--- NOTE | 2022-01-30 10:30 | CASEMGMT ---
Social Work BIMS and PHQ-9 completed for MDS assessment. Suzette Quezada, VALVE INSERTER CELL PREPARER
== END 2022-01-30 11:15 | disposition home health service (06) | DRG 641 ==
PROVIDERS: Admitting Provider Family Medicine Geriatric Medicine; PCP Family Medicine Geriatric Medicine; Visit Provider Family Medicine Geriatric Medicine
DX: R62.7 Adult failure to thrive (principal); I42.9 Cardiomyopathy, unspecified; I48.20 Chronic atrial fibrillation, unspecified; I73.9 Peripheral vascular disease, unspecified; E78.00 Pure hypercholesterolemia, unspecified; E03.9 Hypothyroidism, unspecified; I95.1 Orthostatic hypotension; I25.10 Atherosclerotic heart disease of native coronary artery without angina pectoris; I10 Essential (primary) hypertension; K21.9 Gastro-esophageal reflux disease without esophagitis; I25.2 Old myocardial infarction; Z87.891 Personal history of nicotine dependence; N40.0 Benign prostatic hyperplasia without lower urinary tract symptoms; Z79.01 Long term (current) use of anticoagulants; R29.6 Repeated falls; Z79.899 Other long term (current) drug therapy; Z79.890 Hormone replacement therapy; Z23 Encounter for immunization
CPT/HCPCS: 0134A; 36415; 80048; 85025; 87811; 91313; 92523; 97110; 97116; 97162; 97166; 97530; 97535; 97802; 97803

== ENCOUNTER 2022-02-10 11:53 | Outpatient (RCR) | payer MEDICARE, SELFPAY ==
[2022-01-23 21:58] VITALS: BMI 25.9
[2022-02-10 12:26] LABS: International Normalized Ratio 1.2; Prothrombin Time (Protime)PT. 14.7 SECONDS (11.7-14.9)
== END 2022-02-10 18:00 | disposition home or self-care (01) ==
LOC: LAB 11:53
PROVIDERS: Family Provider Family Medicine Geriatric Medicine; PCP Family Medicine Geriatric Medicine; Referring Provider Internal Medicine Cardiovascular Disease; Visit Provider Internal Medicine Cardiovascular Disease
DX: I48.20 Chronic atrial fibrillation, unspecified (principal); Z79.01 Long term (current) use of anticoagulants
CPT/HCPCS: 36415; 85610

== ENCOUNTER → 2022-02-12 | Outpatient (CLI) | payer MEDICARE, SELFPAY ==
[2022-02-12 12:22] LABS: Absolute Lymphocyte Count 1.29 X10^3/uL (0.83-4.51); Absolute Neutrophil Count 4.5 X10^3/uL (2.0-7.7); Basophil# 0.04 X10^3/uL; Basophil% 0.6 % (0-1); Eosinophil# 0.14 X10^3/uL; Eosinophils% 2.1 % (0-5); Hematocrit 35.1 % (40-54); Hemoglobin 11.1 g/dL (13.0-16.5); Lymphocyte # 1.29 X10^3/ul (0.83-4.51); Lymphocyte % 19.4 % (19-41); Mean Corp Hgb Conc 31.6 g/dL (32-36); Mean Corpuscular Hgb 29.8 pg (27.0-32.0); Mean Corpuscular Volume 94.1 fL (80-94); Mean Platelet Vol. 9.8 fl (6.2-12.0); Monocyte# 0.66 X10^3/uL; Monocyte% 9.9 % (0-10); NRBC Flagged by Analyzer 0 % (0-5); Neutrophil % 67.8 % (47-70); Platelet Count 206 K/mm3 (150-450); RBC Distribution Width CV 13.4 % (11.6-14.6); RBC Distribution Width SD 46.2 fl (35.1-43.9); Red Blood Count 3.73 M/mm3 (4.6-6.2); White Blood Count 6.6 K/mm3 (4.4-11.0)
[2022-02-12 13:04] LABS: Anion Gap 7 (5-15); BUN 15 mg/dL (7-18); BUN/Creat Ratio 12.6 RATIO (10-20); Calcium,Total 9.6 mg/dL (8.5-10.1); Chloride 112 mmol/L (98-107); Creatinine, Serum 1.19 mg/dL (0.70-1.30); EST Glomerular Filtration Rate 62 mL/min (>60); Est Glom Filt Rate - Afr Amer 75 mL/min (>60); Glucose 98 mg/dL (74-106); Potassium 4.4 mmol/L (3.5-5.1); Sodium Level 142 mmol/L (136-145)
== END | disposition home or self-care (01) ==
LOC: POLAB3 11:49
PROVIDERS: PCP Family Medicine Geriatric Medicine; Visit Provider Family Medicine Geriatric Medicine
DX: I10 Essential (primary) hypertension (principal); Z78.9 Other specified health status
CPT/HCPCS: 36415; 80048; 85025

== ENCOUNTER 2022-03-05 12:22 | Outpatient (RCR) | payer MEDICARE, SELFPAY ==
[2022-02-24 10:09] VITALS: BMI 25.9
[2022-03-05 12:51] LABS: Hemoglobin 11.8 g/dL (13.0-16.5); Mean Corp Hgb Conc 33.7 g/dL (32-36); Mean Corpuscular Hgb 30.7 pg (27.0-32.0); Mean Corpuscular Volume 91.1 fL (80-94); Mean Platelet Vol. 9.4 fl (6.2-12.0); Platelet Count 228 K/mm3 (150-450); RBC Distribution Width CV 13.8 % (11.6-14.6); RBC Distribution Width SD 45.9 fl (35.1-43.9); Red Blood Count 3.84 M/mm3 (4.6-6.2); White Blood Count 6.7 K/mm3 (4.4-11.0)
[2022-03-05 13:00] LABS: International Normalized Ratio 1.2; Prothrombin Time (Protime)PT. 14.8 SECONDS (11.7-14.9)
[2022-03-05 13:16] LABS: BNP,B-Type NATRIURETIC PEPTIDE 461.3 pg/mL (0-100)
[2022-03-05 17:41] LABS: Anion Gap 6 (5-15); BUN 20 mg/dL (7-18); BUN/Creat Ratio 16.8 RATIO (10-20); Calcium,Total 9.3 mg/dL (8.5-10.1); Chloride 112 mmol/L (98-107); Creatinine, Serum 1.19 mg/dL (0.70-1.30); EST Glomerular Filtration Rate 62 mL/min (>60); Est Glom Filt Rate - Afr Amer 75 mL/min (>60); Glucose 89 mg/dL (74-106); Potassium 3.9 mmol/L (3.5-5.1); Sodium Level 143 mmol/L (136-145)
== END 2022-03-25 18:00 | disposition home or self-care (01) ==
LOC: LAB 12:22
PROVIDERS: Nurse Practitioner Gerontology; Family Provider Family Medicine Geriatric Medicine; PCP Family Medicine Geriatric Medicine; Referring Provider Internal Medicine Cardiovascular Disease; Visit Provider Internal Medicine Cardiovascular Disease
DX: Z79.01 Long term (current) use of anticoagulants; I50.32 Chronic diastolic (congestive) heart failure; I95.9 Hypotension, unspecified; R06.02 Shortness of breath; R09.89 Other specified symptoms and signs involving the circulatory and respiratory systems
CPT/HCPCS: 36415; 80048; 83880; 85027; 85610

== ENCOUNTER → 2022-03-05 | Outpatient (CLI) | payer MEDICARE, SELFPAY ==
--- NOTE | 2022-03-05 12:15 | RAD_ITS ---
EXAM: XR CHEST, 2 VIEWS CLINICAL INDICATION: crackles L base, SOB TECHNIQUE: Frontal and lateral views of the chest. This report was created using [employer] report generation technology. COMPARISON: XR Chest dated 07/01/2021 FINDINGS: LUNGS AND PLEURAL SPACES: Hyperinflation suggesting emphysema. Stable small bilateral pleural effusions. No pneumothorax. HEART: Normal heart size. Coronary artery bypass graft (CABG). MEDIASTINUM: No mediastinal or hilar mass. BONES/JOINTS: No acute abnormality. SOFT TISSUES: Normal. TUBES, LINES AND DEVICES: Automatic implantable cardioverter defibrillator (AICD). RAD/Chest PA and Lateral IMPRESSION: 1. COPD. 2. Small bilateral pleural effusions. Electronically Signed: Sonny Araya MD at 13:31 EST ,
== END | disposition home or self-care (01) ==
LOC: RAD 11:51
PROVIDERS: PCP Family Medicine Geriatric Medicine; Visit Provider Nurse Practitioner Gerontology
DX: R09.89 Other specified symptoms and signs involving the circulatory and respiratory systems (principal); I50.32 Chronic diastolic (congestive) heart failure; R06.02 Shortness of breath
CPT/HCPCS: 36415; 71046; 80048; 83880; 85027; 85610

== ENCOUNTER 2022-03-09 06:55 | Observation (INO) | payer MEDICARE, SELFPAY ==
[2022-03-09 06:59] VITALS: BP 167/100; PULSE 104; RESP 16; TEMP 36.2; O2SAT 98; BMI 23.1
--- NOTE | 2022-03-09 07:13 | CT_ITS ---
STUDY: CT ABDOMEN AND PELVIS WITHOUT CONTRAST REASON FOR EXAM: Male, 86 years old. Kidney Stone RADIATION DOSAGE (If Supplied By Facility): CTDIvol = ( 8.39 ) mGy, DLP = ( 395.94 ) mGycm TECHNIQUE: Transaxial images were obtained from the dome of the diaphragm to the symphysis pubis without oral contrast, and without intravenous contrast. Sagittal and coronal images were reconstructed. Individualized dose optimization techniques were used for this CT. COMPARISON: 11/21/2020. FINDINGS: There are bilateral pleural effusions associated with dependent consolidation within the lower lobes. There are coronary artery calcifications. The lack of intravenous contrast limits evaluation of solid visceral organs. Normal liver. There are surgical clips in the gallbladder fossa consistent with a prior cholecystectomy. Normal spleen. Normal pancreas. Normal bilateral adrenal glands. There is right hydroureteronephrosis secondary to a 6 mm calculus within the proximal ureter. There are additional nonobstructing renal calculi including calculi within the renal pelvis measuring up to 8 mm. There is a left renal cyst. There are nonobstructing left renal calculi measuring up to 4 mm. There is a small hiatal hernia. Normal small intestine. There are multiple colonic diverticula consistent with diverticulosis. The appendix is visualized and appears normal. There is diffuse atherosclerotic calcification of the abdominal aorta, without a demonstrated aneurysm. Normal inferior vena cava. Normal retroperitoneum. Normal urinary bladder. There is enlargement of the prostate gland. There are postsurgical changes of the anterior abdominal wall. The bones are diffusely demineralized. There are compression deformities of T12, L1 and L4 that are grossly stable. There are stable deformities of the left. Inferior pubic rami. CT/Abdomen/Pelvis without Cont IMPRESSION: Right hydroureteronephrosis secondary to a 6 mm calculus within the proximal ureter. Bilateral nonobstructing renal calculi measuring up to 8 mm on the right. Atherosclerosis. Colonic diverticulosis. Diffusely demineralized bones. Bilateral pleural effusions associated with dependent lower lobe consolidation. Hiatal hernia. Electronically Signed: Lalita Sharif MD at 8:11 EST ,
--- NOTE | 2022-03-09 07:16 | EDS_ITS ---
HPI History of Present Illness Chief Complaint: Flank Pain Informant: patient Narrative Narrative: Patient is an 86-year-old male with history of coronary artery disease, status post CABG, pacemaker, hypothyroid, atrial fibrillation (on not on any anticoagulation), GERD and kidney stones presenting with right flank pain. States that started around 12 AM. He has had some associated nausea and vomiting when the pain is severe. States the pain is been constant but fluctuates in intensity. It does radiate to his groin. Denies any changes bowel movements. Denies any hematuria or difficulty urinating. Is a patient of Dr. Mo. Has had lithotripsy in the past. Did not take his morning medications. No other complaints at this time. [facility] Medical History Anemia Arthritis Atherosclerosis of coronary artery bypass graft without angina pectoris Back pain Blood thinned due to long-term anticoagulant use Cardiac pacemaker Cardiology follow-up encounter Cardiomyopathy Chronic atrial fibrillation Coronary artery disease Debility Essential hypertension Falls frequently Former smoker Gastric reflux History of atrial fibrillation History of echocardiogram History of edema History of pacemaker History of stress test Hx of renal calculi Hyperthyroidism Injury of back FDC (current) use of anticoagulants Non-healing non-surgical wound Old myocardial infarction Partial bowel obstruction Peripheral vascular disease Presence of combination internal cardiac defibrillator (ICD) and pacemaker Presence of stent in coronary artery (~02/21/03) Pure hypercholesterolemia Shortness of breath on exertion Thyroid disease Thyroid dysfunction Traumatic ecchymosis of left lower leg Wears dentures Home Medications omeprazole 20 mg capsule,delayed release 20 mg PO DAILY GERD 02/19/15 [History Last Taken 01/12/22] tamsulosin 0.4 mg capsule 0.4 mg PO QHS prostate 07/29/17 [History Last Taken 01/12/22] nitroglycerin 0.4 mg sublingual tablet 0.4 mg sublingual Q5M PRN CHEST PAIN #25 tabs 04/23/20 [Rx Last Taken Unknown] levothyroxine 25 mcg tablet 25 mcg PO DAILY THYROID 07/10/20 [History Last Taken 01/12/22] metoprolol tartrate 25 mg tablet 12.5 mg PO BID bp 03/04/22 [History Last Taken Unknown] furosemide 40 mg tablet 40 mg PO DAILY #90 tabs 03/05/22 [Rx Last Taken Unknown] midodrine 5 mg tablet 5 mg PO BID bp 03/06/22 [History Last Taken Unknown] Allergy/AdvReac Type Severity Reaction Status Date / Time No Known Allergies Allergy Verified 03/09/22 06:56 Family History Father Lung cancer CVA (cerebral vascular accident) Brother Sudden cardiac Surgical History Eyelid retraction unspecified eye, unspecified lid H/O hernia repair H/O myringoplasty History of cardiac catheterization History of coronary artery stent placement History of two vessel coronary artery bypass graft (~1997) Hx of CABG Hx of cholecystectomy Presence of coronary angioplasty implant and graft (~02/21/03) ureteral stent Social History household members: none Smoking Status: Former smoker how long ago did patient quit smokin years alcohol intake: never substance use type: does not use caffeine: No ROS ROS ED Constitutional Constitutional ED: Denies chills or fever(s) Eyes Eyes: Denies change in vision ENT ENT ED: Denies sore throat Cardiovascular Cardiovascular: Denies chest pain or palpitations Respiratory/Chest Respiratory/Chest: Denies cough or dyspnea Gastrointestinal Gastrointestinal: Reports abdominal pain, nausea and vomiting; Denies constipation or diarrhea Genitourinary Genitourinary ED: Denies dysuria or hematuria Musculoskeletal Musculoskeletal: Reports back pain; Denies arthralgias or myalgias Integumentary Denies rash Neurologic Neurologic: Denies paresthesias or weakness Psychiatric Psychiatric: Denies anxiety Hematologic/Lymphatic Hematologic/Lymphatic: Denies easy bleeding or easy bruising EXAM Physical Exam Const Vital Signs: 03/09/22 06:59 03/09/22 09:53 Temperature 97.1 F L Temperature Source Temporal Pulse Rate 104 H 81 Respiratory Rate 16 16 Blood Pressure 167/100 H 130/78 H Blood Pressure Mean 122 95 Pulse Ox 98 98 Oxygen Delivery Method Room Air Positive well nourished and well developed General Appearance ED: well developed and NAD HEENT Reports moist mucous membranes Eyes PERRL and EOMs intact bilaterally Neck supple and no JVD Chest Wall inspection of chest normal and palpation of chest normal Resp normal respiratory effort and clear to auscultation bilaterally Cardio Rate: tachycardic Rhythm: abnormal rhythm irregularly irregular GI normal to inspection, nondistended, normoactive bowel sounds, non-tender and non-distended Palpation: Negative for mass Back/Spine no CVA tenderness Neuro oriented x3 Sensorium / Orientation: alert Motor Exam: Negative for general weakness Psych mental status grossly normal Skin no rashes or lesions noted and no wounds MDM MDM MDM Narrative Medical decision making narrative: Patient's evaluate for sudden onset of right-sided flank pain. No palpable mass appreciated. Has an extensive history of kidney stones. Patient is tachycardic but did not take his morning metoprolol suspect he has some rebound tachycardia. Is given IV morphine, Zofran and oral metoprolol. We will obtain a CT flank study as well as basic labs. Lab work shows a mild anemia with hemoglobin 11.1. Cr is near baseline at 1.30. Urinalysis most consistent with hematuria. CT abdomen pelvis shows right hydrou reteronephrosis secondary to 6 mm calculus in the proximal ureter. Patient has bilateral nonobstructing renal calculi. Patient does have improvement of symptoms with IV morphine. CT incidentally shows bilateral pleural effusions. Patient states he has some mild dyspnea on exertion. BNP added on which is near his baseline at 361.6. EKG does show some T wave inversions. He denies any chest pain. High since he troponin is 15. Patient is currently on diuresis. He is not given IV fluids in the ER in effort to avoid volume overload. Given patient's pain, large stone size and age/comorbidities he is admitted to urology service for definitive management of kidney stone. Patient valarie hemodynamically stable in the ER. Lab Data Attestation: I reviewed the patient's lab results. Labs: Laboratory Results - last 24 hr 03/09/22 03/09/22 03/09/22 07:10 07:10 07:10 WBC 8.3 RBC 3.80 L Hgb 11.1 L Hct 35.0 L MCV 92.1 MCH 29.2 MCHC 31.7 L D RDW Std Deviation 46.5 H RDW Coeff of Del 13.8 Plt Count 185 MPV 9.4 Immature Gran % (Auto) 0.200 Neut % (Auto) 76.8 H Lymph % (Auto) 11.6 L [place] % (Auto) 10.5 H Eos % (Auto) 0.4 Baso % (Auto) 0.5 Absolute Neuts (auto) 6.4 Absolute Lymphs (auto) 0.96 Nucleated RBC % 0 Sodium 145 Potassium 3.7 Chloride 110 H Carbon Dioxide 24.0 Anion Gap 11 BUN 25 H Creatinine 1.30 Estim Creat Clear Calc 37.49 Est GFR (MDRD) Af Amer 67 Est GFR (MDRD) Non-Af 56 L BUN/Creatinine Ratio 19.2 Glucose 122 H Calcium 9.4 B-Natriuretic Peptide 361.6 H Urine Color Urine Clarity Urine pH Ur Specific [place] Urine Protein Urine Glucose (UA) Urine Ketones Urine Occult Blood Urine Nitrite Urine Bilirubin Urine Urobilinogen Ur Leukocyte Esterase Urine RBC Urine WBC Ur Squamous Epith Cells Urine Bacteria Urine Mucus 03/09/22 08:25 WBC RBC Hgb Hct MCV MCH MCHC RDW Std Deviation RDW Coeff of Del Plt Count MPV Immature Gran % (Auto) Neut % (Auto) Lymph % (Auto) [place] % (Auto) Eos % (Auto) Baso % (Auto) Absolute Neuts (auto) Absolute Lymphs (auto) Nucleated RBC % Sodium Potassium Chloride Carbon Dioxide Anion Gap BUN Creatinine Estim Creat Clear Calc Est GFR (MDRD) Af Amer Est GFR (MDRD) Non-Af BUN/Creatinine Ratio Glucose Calcium B-Natriuretic Peptide Urine Color Yellow Urine Clarity Sl. Cloudy Urine pH 5.0 Ur Specific [place] 1.025 Urine Protein 30 H Urine Glucose (UA) Normal Urine Ketones 15 H Urine Occult Blood 150 H Urine Nitrite Negative Urine Bilirubin Negative Urine Urobilinogen Normal Ur Leukocyte Esterase 25 H Urine RBC 10-25 SEEN Urine WBC 0-5 SEEN Ur Squamous Epith Cells 0-5 SEEN Urine Bacteria 1+ Urine Mucus 0 SEEN Radiography Diagnostic Testing: Clinical Impression(s) from Imaging Studies Abdomen/Pelvis CT 03/09/22 07:13 IMPRESSION: Right hydroureteronephrosis secondary to a 6 mm calculus within the proximal ureter. Bilateral nonobstructing renal calculi measuring up to 8 mm on the right. Atherosclerosis. Colonic diverticulosis. Diffusely demineralized bones. Bilateral pleural effusions associated with dependent lower lobe consolidation. Hiatal hernia. Electronically Signed: Lalita Sharif MD at 8:11 EST , Rhythm Strip Rhythm Strip: A-fib Rate: 110 Ectopy: None EKG Initial EKG: Attestation: I personally reviewed and interpreted this EKG as follows: Interpretation: Atrial Fibrillation Comments: Atrial fibrillation at a rate of 110 bpm Left axis deviation Minimal voltage criteria for LVH T wave inversions in precordial leads with no reciprocal changes T wave inversions are more pronounced compared to prior EKG on 01/14/2022 Discharge Plan Dx/Rx/DC Orders Clinical Impression: Urolithiasis, Kidney disease, chronic, stage III (GFR 30-59 ml/min), Paroxysmal atrial fibrillation, Pleural effusion, bilateral, Renal colic on right side Disposition Disposition: Acute Care Hospital [facility] Discharge Date/Time: 03/09/22 10:56
[2022-03-09 07:21] LABS: Absolute Lymphocyte Count 0.96 X10^3/uL (0.83-4.51); Absolute Neutrophil Count 6.4 X10^3/uL (2.0-7.7); Basophil# 0.04 X10^3/uL; Basophil% 0.5 % (0-1); Eosinophil# 0.03 X10^3/uL; Eosinophils% 0.4 % (0-5); Hemoglobin 11.1 g/dL (13.0-16.5); Lymphocyte # 0.96 X10^3/ul (0.83-4.51); Lymphocyte % 11.6 % (19-41); Mean Corp Hgb Conc 31.7 g/dL (32-36); Mean Corpuscular Hgb 29.2 pg (27.0-32.0); Mean Corpuscular Volume 92.1 fL (80-94); Mean Platelet Vol. 9.4 fl (6.2-12.0); Monocyte# 0.87 X10^3/uL; Monocyte% 10.5 % (0-10); NRBC Flagged by Analyzer 0 % (0-5); Neutrophil # 6.37 X10^3/uL (2.7-7.7); Neutrophil % 76.8 % (47-70); Platelet Count 185 K/mm3 (150-450); RBC Distribution Width CV 13.8 % (11.6-14.6); RBC Distribution Width SD 46.5 fl (35.1-43.9); White Blood Count 8.3 K/mm3 (4.4-11.0)
[2022-03-09] MEDS: Morphine 4 MG/ML Syringe IV (07:26)
[2022-03-09] MEDS: Ondansetron 4 MG/2 ML Vial IV (07:26)
[2022-03-09 07:33] LABS: Anion Gap 11 (5-15); BUN 25 mg/dL (7-18); BUN/Creat Ratio 19.2 RATIO (10-20); Calcium,Total 9.4 mg/dL (8.5-10.1); Chloride 110 mmol/L (98-107); EST Glomerular Filtration Rate 56 mL/min (>60); Est Glom Filt Rate - Afr Amer 67 mL/min (>60); Estimated Creatinine Clearance 37.49 ml/min; Glucose 122 mg/dL (74-106); Potassium 3.7 mmol/L (3.5-5.1); Sodium Level 145 mmol/L (136-145)
[2022-03-09] MEDS: Metoprolol Tartrate 25 MG Tablet 12.5 MG PO (07:59)
[2022-03-09 08:36] LABS: Mucous, Urine 0 SEEN /hpf (<or=2+)
[2022-03-09 08:37] LABS: Color, Urine Yellow (Yellow); Glucose, Dipstick Normal (Normal); Ketone-Dipstick 15 mg/dl (Negative); Leukocyte Esterase-Dipstick 25 /ul (Negative); Nitrite-Dipstick Negative (Negative); Occult Blood-Urine 150 /ul (Negative); Protein-Dipstick 30 mg/dl (Negative); Specific Gravity, Urine 1.025 (1.002-1.030); Urine Bilirubin Dipstick Negative (Negative); Urine Clarity Sl. Cloudy (Clear); Urine Urobilinogen Normal (Normal)
[2022-03-09 08:43] LABS: Bacteria 1+ /hpf (None Seen); Red Blood Cells-Urine 10-25 SEEN /hpf (0-5); Squamous Epithelial Cells - UA 0-5 SEEN /hpf (0-5); White Blood Cells 0-5 SEEN /hpf (0-5)
--- NOTE | 2022-03-09 08:54 | EKG12_ITS ---
Test Reason : Blood Pressure : / mmHG Vent. Rate : 110 BPM Atrial Rate : 000 BPM P-R Int : 000 ms QRS Dur : 108 ms QT Int : 300 ms P-R-T Axes : 000 009 -81 degrees QTc Int : 406 ms Atrial fibrillation with rapid ventricular response with premature ventricular or aberrantly conducte d complexes Minimal voltage criteria for LVH, may be normal variant ( [place] product ) Nonspecific ST and T wave abnormality Abnormal ECG Confirmed by SAMRA TABOR, DYLAN ([id number]), sound editor LEESA MARTINEZ ([id number]) on 03/10/2022 11:38:34 AM Referred By: Confirmed By:DYLAN CABRALES MD
[2022-03-09 09:27] LABS: BNP,B-Type NATRIURETIC PEPTIDE 361.6 pg/mL (0-100)
[2022-03-09 09:53] VITALS: BP 130/78; PULSE 81; RESP 16; O2SAT 98
[2022-03-09 10:56] VITALS: BP 130/78; PULSE 81; RESP 16; TEMP 36.2; O2SAT 98
[2022-03-09 11:03] VITALS: BMI 21.4
[2022-03-09 11:05] LABS: Troponin-I HS 15 pg/mL (3.0-78.0)
[2022-03-09 11:14] VITALS: BP 151/81; PULSE 96; RESP 18; TEMP 36.9; O2SAT 94
[2022-03-09] MEDS: 0.9% Normal Saline 1,000 ML 100 ML IV ×2 (11:45→22:01)
[2022-03-09 15:00] VITALS: BP 134/86; PULSE 104; RESP 18; TEMP 37.3; O2SAT 95
--- NOTE | 2022-03-09 16:23 | PCM.HP.STD ---
HPI - General General Date of Admission: 03/09/22 Date of Service: 03/09/22 Chief Complaint: right obstructing kidney stones and right hydronephrosis HPI Narrative SHANTELL RIVERA, is a 86 M who presents to the hospital with severe pain on the right side CT scan was done at demonstrated multiple stones in the right kidney and several stones in the right UPJ causing hydronephrosis and severe swelling of the kidney multiple stone fragments blocking the kidney plan to admit the patient for pain control [facility] Medical History Anemia Arthritis Atherosclerosis of coronary artery bypass graft without angina pectoris Back pain Blood thinned due to long-term anticoagulant use Cardiac pacemaker Cardiology follow-up encounter Cardiomyopathy Chronic atrial fibrillation Coronary artery disease Debility Essential hypertension Falls frequently Former smoker Gastric reflux History of atrial fibrillation History of echocardiogram History of edema History of pacemaker History of stress test Hx of renal calculi Hyperthyroidism 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 Non-healing non-surgical wound Old myocardial infarction Partial bowel obstruction Peripheral vascular disease Presence of combination internal cardiac defibrillator (ICD) and pacemaker Presence of stent in coronary artery (~02/21/03) Pure hypercholesterolemia Shortness of breath on exertion Thyroid disease Thyroid dysfunction Traumatic ecchymosis of left lower leg Wears dentures Home Medications omeprazole 20 mg capsule,delayed release 20 mg PO DAILY GERD 02/19/15 [History Last Taken 01/12/22] tamsulosin 0.4 mg capsule 0.4 mg PO QHS prostate 07/29/17 [History Last Taken 01/12/22] nitroglycerin 0.4 mg sublingual tablet 0.4 mg sublingual Q5M PRN CHEST PAIN #25 tabs 04/23/20 [Rx Last Taken Unknown] levothyroxine 25 mcg tablet 25 mcg PO DAILY THYROID 07/10/20 [History Last Taken 01/12/22] metoprolol tartrate 25 mg tablet 12.5 mg PO BID bp 03/04/22 [History Last Taken Unknown] furosemide 40 mg tablet 40 mg PO DAILY #90 tabs 03/05/22 [Rx Last Taken Unknown] midodrine 5 mg tablet 5 mg PO BID bp 03/06/22 [History Last Taken Unknown] Allergy/AdvReac Type Severity Reaction Status Date / Time No Known Allergies Allergy Verified 03/09/22 06:56 Family History Father Lung cancer CVA (cerebral vascular accident) Brother Sudden cardiac Surgical History Eyelid retraction unspecified eye, unspecified lid H/O hernia repair H/O myringoplasty History of cardiac catheterization History of coronary artery stent placement History of two vessel coronary artery bypass graft (~1997) Hx of CABG Hx of cholecystectomy Presence of coronary angioplasty implant and graft (~02/21/03) ureteral stent Social History household members: none Smoking Status: Former smoker how long ago did patient quit smokin years alcohol intake: never substance use type: does not use caffeine: No ROS Constitutional Constitutional: Denies chills, fever(s) or malaise Eyes Eyes: Denies blurry vision or change in vision ENT HEENT: Reports none Cardiovascular Cardiovascular: Denies chest pain or palpitations Respiratory/Chest Respiratory/Chest: Denies cough or shortness of breath with exertion Gastrointestinal Gastrointestinal: Denies abdominal pain, constipation or diarrhea Musculoskeletal Musculoskeletal: Denies back pain, joint stiffness or joint swelling Integumentary Integumentary: Denies dry skin, jaundice, lesions or rash Neurologic Neurologic: Denies confusion, syncope or weakness Psychiatric Psychiatric: Reports none; Denies anxiety or depression Endocrine Endocrinology: Denies excessive sweating, fatigue or flushing Hematologic/Lymphatic Hematologic/Lymphatic: Denies anemia, easy bleeding or easy bruising Vital Signs Vital Signs Vital Signs: 03/09/22 06:59 03/09/22 09:53 03/09/22 10:56 Temperature 97.1 F L 97.1 F L Temperature Source Temporal Temporal Pulse Rate 104 H 81 81 Respiratory Rate 16 16 16 Respiratory Effort Blood Pressure 167/100 H 130/78 H 130/78 H Blood Pressure Mean 122 95 95 Blood Pressure Source Blood Pressure Position Blood Pressure Location Pulse Ox 98 98 98 Oxygen Delivery Method Room Air Room Air 03/09/22 11:14 03/09/22 11:19 03/09/22 15:00 Temperature 98.5 F 99.1 F Temperature Source Oral Temporal Pulse Rate 96 104 H Respiratory Rate 18 18 Respiratory Effort Normal Non-Labored Blood Pressure 151/81 H 134/86 H Blood Pressure Mean 104 102 Blood Pressure Source Monitor Monitor Blood Pressure Position Semi-Fowlers Semi-Fowlers Blood Pressure Location Right Arm Right Arm Pulse Ox 94 95 Oxygen Delivery Method Room Air Room Air Room Air Weight Weight: 60.3 kg Body Mass Index (BMI) 21.4 Physical Exam Const alert and oriented x3 General Appearance: cooperative HEENT normocephalic, head/scalp atraumatic, EAC's normal and TM's normal bilaterally Eyes PERRL and EOMs intact bilaterally Pupil: sluggish Neck no lymphadenopathy, supple and no JVD General: trachea midline Lymph Lymphatic: no lymphadenopathy noted, lymphedema and lymphadenopathy Resp normal respiratory effort, normal air movement and clear to auscultation bilaterally Cardio regular rate, regular rhythm and peripheral pulses 2+ throughout GI soft to palpation, non-tender and non-distended Extremity normal capillary refill and no clubbing, cyanosis or edema General Extremity: no tenderness to palpation of joints or extremities Skin no rashes or lesions noted General Skin Exam: turgor normal Lesions: no lesions Rashes: no rashes Neuro CN's II-XII intact bilaterally Speech: speech normal Motor Exam: strength 5/5 throughout; Negative for general weakness Psych thought process normal, cooperative and affect normal Appearance: appropriate Results Medical Records Data Attestation: I reviewed the patient's medical records Lab / Micro Data Attestation: I reviewed the patient's lab results. Result Diagrams: 03/09/22 07:10 03/09/22 07:10 Labs: Laboratory Results - last 24 hr 03/09/22 07:10: WBC 8.3, RBC 3.80 L, Hgb 11.1 L, Hct 35.0 L, MCV 92.1, MCH 29.2, MCHC 31.7 L D, RDW Std Deviation 46.5 H, RDW Coeff of Del 13.8, Plt Count 185, MPV 9.4, Immature Gran % (Auto) 0.200, Neut % (Auto) 76.8 H, Lymph % (Auto) 11.6 L, [place] % (Auto) 10.5 H, Eos % (Auto) 0.4, Baso % (Auto) 0.5, Absolute Neuts (auto) 6.4, Absolute Lymphs (auto) 0.96, Nucleated RBC % 0 03/09/22 07:10: Sodium 145, Potassium 3.7, Chloride 110 H, Carbon Dioxide 24.0, Anion Gap 11, BUN 25 H, Creatinine 1.30, Estim Creat Clear Calc 37.49, Est GFR (MDRD) Af Amer 67, Est GFR (MDRD) Non-Af 56 L, BUN/Creatinine Ratio 19.2, Glucose 122 H, Calcium 9.4 03/09/22 07:10: B-Natriuretic Peptide 361.6 H 03/09/22 08:25: Urine Color Yellow, Urine Clarity Sl. Cloudy, Urine pH 5.0, Ur Specific [place] 1.025, Urine Protein 30 H, Urine Glucose (UA) Normal, Urine Ketones 15 H, Urine Occult Blood 150 H, Urine Nitrite Negative, Urine Bilirubin Negative, Urine Urobilinogen Normal, Ur Leukocyte Esterase 25 H, Urine RBC 10-25 SEEN, Urine WBC 0-5 SEEN, Ur Squamous Epith Cells 0-5 SEEN, Urine Bacteria 1+, Urine Mucus 0 SEEN 03/09/22 10:30: Troponin I High Sens 15 Rhythm Strip Rhythm Strip: A-fib Rate: 110 Ectopy: None Radiology Impression Abdomen/Pelvis CT 03/09/22 07:13 IMPRESSION: Right hydroureteronephrosis secondary to a 6 mm calculus within the proximal ureter. Bilateral nonobstructing renal calculi measuring up to 8 mm on the right. Atherosclerosis. Colonic diverticulosis. Diffusely demineralized bones. Bilateral pleural effusions associated with dependent lower lobe consolidation. Hiatal hernia. Electronically Signed: Lalita Sharif MD at 8:11 EST , Assessment & Plan Assessment/Plan (1) Urolithiasis: PLAN: admit patient the hospital for severe pain and right swollen kidney from obstruction of stones and will plan to surgically address the stones
[2022-03-09 21:00] VITALS: BP 141/62; PULSE 112; RESP 16; TEMP 36.9; O2SAT 96
[2022-03-10 02:52] VITALS: BP 120/70; PULSE 83; RESP 16; TEMP 37.4; O2SAT 92
--- NOTE | 2022-03-10 05:55 | RAD_ITS ---
STUDY: X-RAY - ABDOMEN/PELVIS REASON FOR EXAM: Male, 86 years old. Stones TECHNIQUE: Single AP view of the abdomen / pelvis. COMPARISON: None. FINDINGS: Patchy infiltrate in the left lower lobe with blunting of the left costophrenic angle. Blunting of the right costophrenic angle. There is a moderate amount of colonic fecal material. There are 2, adjacent calculi in the midportion of the right kidney. The larger measures 5.1 mm. There is a 5 mm calculus overlying the transverse processes of the L4 vertebrae on the right side. Tiny left intrarenal calculi. Atherosclerotic calcification of the left common iliac artery. There are diffuse degenerative changes of the visualized lumbar spine. RAD/Abdomen Single View IMPRESSION: 5.0 mm calculus overlying the transverse processes of the L4 vertebra on the right side. Right intrarenal calculi. Electronically Signed: Royer Pineda MD at 12:51 EST ,
--- NOTE | 2022-03-10 07:40 | PCM.PN.GU ---
Subjective Subjective 86-year-old male admitted for obstructing stones in the right kidney and severe right hydronephrosis plan for surgery tomorrow n.p.o. at midnight we will plan for cystoscopy stent placement and right ESWL Objective Data Objective Data Vital Signs: Vital Signs Temp Pulse Resp BP Pulse Ox O2 Del Method 99.4 F H 83 16 120/70 92 Room Air 03/10/22 02:52 03/10/22 02:52 03/10/22 02:52 03/10/22 02:52 03/10/22 02:52 03/10/22 02:52 Oxygen Delivery Method Room Air Weight: 60.3 kg Body Mass Index (BMI) 21.4 Intake & Output: Intake and Output for Last 24 Hours 03/08/22 03/09/22 03/10/22 23:59 23:59 23:59 Intake Total 1100 / 1100 Output Total 425 / 425 Balance 1100 / 925 -425 / -425 Lab / Micro Data Result Diagrams: 03/09/22 07:10 03/09/22 07:10 Labs: Laboratory Results - last 24 hr 03/09/22 07:10: B-Natriuretic Peptide 361.6 H 03/09/22 08:25: Urine Color Yellow, Urine Clarity Sl. Cloudy, Urine pH 5.0, Ur Specific [place] 1.025, Urine Protein 30 H, Urine Glucose (UA) Normal, Urine Ketones 15 H, Urine Occult Blood 150 H, Urine Nitrite Negative, Urine Bilirubin Negative, Urine Urobilinogen Normal, Ur Leukocyte Esterase 25 H, Urine RBC 10-25 SEEN, Urine WBC 0-5 SEEN, Ur Squamous Epith Cells 0-5 SEEN, Urine Bacteria 1+, Urine Mucus 0 SEEN 03/09/22 10:30: Troponin I High Sens 15 Radiography Diagnostic Testing: Radiology Impression Abdomen/Pelvis CT 03/09/22 07:13 IMPRESSION: Right hydroureteronephrosis secondary to a 6 mm calculus within the proximal ureter. Bilateral nonobstructing renal calculi measuring up to 8 mm on the right. Atherosclerosis. Colonic diverticulosis. Diffusely demineralized bones. Bilateral pleural effusions associated with dependent lower lobe consolidation. Hiatal hernia. Electronically Signed: Lalita Sharif MD at 8:11 EST , Rhythm Strip Rhythm Strip: A-fib Rate: 110 Ectopy: None
[2022-03-10] MEDS: 0.9% Normal Saline 1,000 ML 100 ML IV (08:13)
[2022-03-10 08:18] VITALS: BP 111/66; PULSE 97; RESP 18; TEMP 36.7; O2SAT 95
[2022-03-10 08:34] VITALS: BP 111/66; PULSE 97
[2022-03-10] MEDS: Pantoprazole Sodium 20 MG Tablet PO (08:34)
[2022-03-10] MEDS: Metoprolol Tartrate 25 MG Tablet 12.5 MG PO ×2 (08:34→21:39)
[2022-03-10] MEDS: Furosemide 40 MG Tablet PO (08:34)
[2022-03-10] MEDS: Levothyroxine 25 MCG TABLET PO (08:34)
[2022-03-10] MEDS: Midodrine HCl 5 MG Tablet PO ×2 (08:47→16:17)
[2022-03-10 14:00] VITALS: BP 147/78; PULSE 89; RESP 18; TEMP 37.2; O2SAT 94
--- NOTE | 2022-03-10 15:19 | CASEMGMT ---
MARIA LUISA CM in to discuss KIM form with patient. RN CM explained KIM form, patient voiced understanding. Pt signed form and filed in chart. Pt provided with a copy of signed KIM form. Patient had no further questions or concerns at this time.
[2022-03-10 20:00] VITALS: BP 152/94; PULSE 67; RESP 14; TEMP 36.8; O2SAT 96
[2022-03-10 21:39] VITALS: PULSE 67
[2022-03-10] MEDS: Tamsulosin HCl 0.4 MG Capsule PO (21:39)
[2022-03-11] VITALS (18 sets, daily range): BP systolic 96–151; BP diastolic 61–106; PULSE 85–147; RESP 12–20; TEMP 36.2–37.2; O2SAT 92–100; BMI 21.4
[2022-03-11] MEDS: 0.9% Normal Saline 1,000 ML 100 ML IV ×3 (00:34→20:30)
[2022-03-11] MEDS: Levothyroxine 25 MCG TABLET PO (05:27)
--- NOTE | 2022-03-11 07:38 | PCM.PN.GU ---
Subjective Subjective Plan to proceed with cystoscopy right stent placement and right ESWL Objective Data Objective Data Vital Signs: Vital Signs Temp Pulse Resp BP Pulse Ox O2 Del Method 98.3 F 87 14 136/61 H 94 Room Air 03/11/22 02:50 03/11/22 02:50 03/11/22 02:50 03/11/22 02:50 03/11/22 02:50 03/11/22 02:50 Oxygen Delivery Method Room Air Weight: 60.3 kg Body Mass Index (BMI) 21.4 Intake & Output: Intake and Output for Last 24 Hours 03/09/22 03/10/22 03/11/22 23:59 23:59 23:59 Intake Total 1100 / 1100 2000 / 2000 Output Total 950 / 1400 750 / 750 Balance 1100 / 925 1050 / 600 -750 / -750 Lab / Micro Data Result Diagrams: 03/09/22 07:10 03/09/22 07:10 Labs: Laboratory Results - last 24 hr 03/09/22 10:30: TSH 1.70 Radiography Diagnostic Testing: Radiology Impression KUB X-Ray 03/10/22 05:55 IMPRESSION: 5.0 mm calculus overlying the transverse processes of the L4 vertebra on the right side. Right intrarenal calculi. Electronically Signed: Royer Pineda MD at 12:51 EST , Rhythm Strip Rhythm Strip: A-fib Rate: 110 Ectopy: None
[2022-03-11] MEDS: Pantoprazole Sodium 20 MG Tablet PO (09:38)
[2022-03-11] MEDS: Metoprolol Tartrate 25 MG Tablet 12.5 MG PO ×2 (09:38→18:01)
[2022-03-11] MEDS: Lactated Ringers 1,000 ML 15 ML IV ×2 (14:41→16:57)
--- NOTE | 2022-03-11 15:57 | DCINST_ITS ---
Discharge Instructions Diet Discharge Diet: No restrictions, Light diet - advance as tolerated and Soft diet Activity Discharge Activity: Return to Normal Activity Follow Up Care Please Follow Up With: Heladio Mo MD When: call for an appt two weeks to remove stent Test Results: Test results from this visit will be discussed in further detail at your follow- up appointment, if applicable. Discharge Plan Admission Admit Date/Time: 03/09/22 15:18 Primary Reason for Your Visit: kidney stone Attending Provider: Heladio Mo Primary Care Provider: Jono Harrington Chi Discharge Orders/Prescriptions Prescriptions: New ciprofloxacin HCl [Cipro] 500 mg tablet 500 mg PO BID Qty: 10 0RF oxycodone-acetaminophen 5-325 mg tablet 1 tab PO Q6H PRN (Reason: pain) 7 Days Qty: 14 0RF Continued midodrine 5 mg tablet 5 mg PO BID Hold Instructions: Hypertension Rx Instructions: do not give last dose of day after 6PM or within 4 hrs of bedtime omeprazole 20 MG capsule 20 mg PO DAILY Label Comments: reflux tamsulosin 0.4 MG capsule,extended release 24hr 0.4 mg PO QHS levothyroxine 25 MCG tablet 25 mcg PO DAILY nitroglycerin 0.4 mg tablet, sublingual 0.4 mg sublingual Q5M PRN (Reason: CHEST PAIN) Qty: 25 3RF Label Comments: chest pain Rx Instructions: 1 tablet sublingual every 5 minutes x 3 for chest pain, if unresolved call 911 metoprolol tartrate 25 mg tablet 12.5 mg PO BID furosemide 40 mg tablet 40 mg PO DAILY Qty: 90 3RF Referrals / Follow Up: Heladio Mo MD [Med Staff - Active Staff] - Jono Harrington Chi, MD [Primary Care Provider] - Disposition Discharge Orders: Discharge Patient (Routine); Ordered 03/11/22 Ordered By: Dr. Heladio Mo
--- NOTE | 2022-03-11 15:59 | PCM.OPRPT ---
Report of Operation Date of Procedure: 03/11/22 Pre-Operative Diagnosis: right kidney stone and Right ESWL Post-Operative Diagnosis: same Surgery/Procedure Performed:: Cystoscopy and right stent placement Description of Surgical Findings:: Patient was taken back to the operating room after induction of general anesthesia, the patient was placed in dorsolithotomy position. The urethra and genitals were prepped and draped in usual sterile fashion. Using a 21 [place] rigid cystourethroscope the entire length of the urethra was normal then went into the bladder. Identified the trigone the left and right ureteral orifice. I then cannulated the right ureteral orifice and had purulent urine drain from the kidney, there ESWL was not done. I then advanced a wire up into the kidney. I then backloaded a 5 [place] open ended catheter over the wire and injected contrast to delineate the anatomy. After the retrograde was performed I then used fluoroscopic images and guidance to advanced a wire up into the kidney and over the 0.038 glidewire I advanced a 6 [place] by 26 cm double pigtail stent. I then pulled the 0.038 Glidewire off and the stent coiled in the kidney bladder good position. The bladder was then drained. We confirmed the position of the stent by fluoroscopy. Patient anesthetic was reversed and was taken back to the PACU in good condition. plan to set him up for ureteoscopy laser as on outpatient. Surgeon: Heladio Mo Type of Anesthesia: General Drains: right stent Admit VTE Documentation VTE Present on Admission: No VTE Mechan Device Prophylaxis: SCD's VTE Pharm Prophylaxis ordered?: No
--- NOTE | 2022-03-11 17:30 | SUR.PHASEI ---
MATEO GLASS WAS QUESTIONING WHETHER PATIENT CAN COME UP TO THE FLOOR WITH HIS HEART RATE OF 140'S THAT I DOCUMENTED. PATIENT IS IN CHRONIC AFIB WITH A PACEMAKER. SHE STATED PATIENT WAS SUPPOSED TO GO HOME TONIGHT ON HIS OWN. I STATED THAT IS AGAINST HOSPITAL POLICY ANYWAY SINCE PATIENT CAN'T DRIVE FOR 24 HOURS. I TOLD HER I WOULD CONTACT ANESTHESIA. I CALLED DR. NARAYAN AND GAVE HIM THE INFORMATION. HIS EKG SHOWED THE AFIB WITH A RATE OF 110.HE TAKE METOPROLOL TWICE DAILY AND HE HAD HIS MORNING DOSE. DR. NARAYAN RECOMENDED THAT THE PATIENT BE GIVEN HIS BEDTIME METOPROLOL AND SEE IF HIS RATE GOES DOWN. ALSO HE SAID PATIENT SHOULDN'T GO HOME ON HIS OWN. HE ALSO STATED WE ARE NOT GOING TO FIX HIS AFIB DOWN IN PACU HE ASKED IF PATIENT HAD ANY CHEST PAIN OR SHORTNESS OF BREATH. PATIENT DENIES BOTH ALONG WITH NO PAIN OR NAUSEA. I CALLED THE CHARGE NURSE ON [facility] AND RELAYED ON THIS INFORMATION. SHE SAID PATIENT IS ABLE TO COME UP. THEY WILL RELAY INFO TO DR. INIGUEZ FOR ORDER CHANGES.
[2022-03-11] MEDS: Midodrine HCl 5 MG Tablet PO (18:01)
[2022-03-11] MEDS: Tamsulosin HCl 0.4 MG Capsule PO (20:14)
[2022-03-11] MEDS: Ketorolac 15 MG/ML Vial IV (20:23)
[2022-03-11] MEDS: 0.9% Saline Lock 10 ML Syringe IV (20:23)
--- NOTE | 2022-03-11 23:41 | NURSING ---
LATE ENTRY - 1928 - DR INIGUEZ PAGED REGARDING PT DC ORDER. PT HAS BEEN TACHY SINCE PROCEDURE, C/O PAIN. PT STATES HE DOES NOT HAVE A RIDE HOME & LIVES ALONE. NO RETURN CALL FROM DR INIGUEZ. PREVIOUS NURSE ALSO HAD PAGED DR INIGUEZ REGARDING SAME WITH NO RETURN CALL.
[2022-03-12 02:00] VITALS: BP 140/85; PULSE 109; RESP 18; TEMP 36.3; O2SAT 96
[2022-03-12] MEDS: Levothyroxine 25 MCG TABLET PO (06:22)
[2022-03-12] MEDS: 0.9% Normal Saline 1,000 ML 100 ML IV (06:22)
--- NOTE | 2022-03-12 07:35 | DS.PCM_ITS ---
Providers Date of Admission: 03/09/22 Primary Care Physician: Dr. Jono Harrington MD Reason For Visit: RT. HYDRONEPHROSIS, OBSTRUCTIING KIDNEY STONE Diagnosis Discharge Diagnosis (1) Urolithiasis: Status: Acute Code(s): N20.9 - Urinary calculus, unspecified Plan: admit patient the hospital for severe pain and right swollen kidney from obstruction of stones and will plan to surgically address the stones Medications at Discharge Home Medications omeprazole 20 mg capsule,delayed release 20 mg PO DAILY GERD 02/19/15 tamsulosin 0.4 mg capsule 0.4 mg PO QHS prostate 07/29/17 nitroglycerin 0.4 mg sublingual tablet 0.4 mg sublingual Q5M PRN CHEST PAIN #25 tabs 04/23/20 levothyroxine 25 mcg tablet 25 mcg PO DAILY THYROID 07/10/20 metoprolol tartrate 25 mg tablet 12.5 mg PO BID bp 03/04/22 furosemide 40 mg tablet 40 mg PO DAILY #90 tabs 03/05/22 midodrine 5 mg tablet 5 mg PO BID bp 03/06/22 ciprofloxacin HCl 500 mg tablet (Cipro) 500 mg PO BID #10 tabs 03/11/22 oxycodone-acetaminophen 5 mg-325 mg tablet 1 tab PO Q6H PRN pain 7 days #14 tabs 03/11/22 Hospital Course Summary of Care Provided Hospital Course: Patient was admitted for severe hydronephrosis and kidney stone he underwent cystoscopy and stent placement was found to have purulent urine and infection in his kidney so only a stent was placed, the stones were not treated let the pa anatoly know that this morning he will go home today with antibiotics and will have my office set him up for treatment of the stones as an outpatient Physical Exam Const alert and oriented x3 General Appearance: cooperative HEENT normocephalic, head/scalp atraumatic, EAC's normal and TM's normal bilaterally Eyes PERRL and EOMs intact bilaterally Pupil: sluggish Neck no lymphadenopathy, supple and no JVD General: trachea midline Lymph Lymphatic: no lymphadenopathy noted, lymphedema and lymphadenopathy Resp normal respiratory effort, normal air movement and clear to auscultation bilaterally Cardio regular rate, regular rhythm and peripheral pulses 2+ throughout GI soft to palpation, non-tender and non-distended Extremity normal capillary refill and no clubbing, cyanosis or edema General Extremity: no tenderness to palpation of joints or extremities Skin no rashes or lesions noted General Skin Exam: turgor normal Lesions: no lesions Rashes: no rashes Neuro CN's II-XII intact bilaterally Speech: speech normal Motor Exam: strength 5/5 throughout; Negative for general weakness Psych thought process normal, cooperative and affect normal Appearance: appropriate Weight / BMI Weight Weight: 60.3 kg Body Mass Index (BMI) 21.4 ABG / Lab / Microbiology Data Result Diagrams: 03/09/22 07:10 03/09/22 07:10 D/C Instructions Discharge Diet: No restrictions, Light diet - advance as tolerated and Soft diet Please Follow Up With: Heladio Mo MD When: call for an appt two weeks to remove stent Meaningful Use Info Meaningful Use Diagnoses (Choose all that apply): None applicable Discharge Plan Admission Admit Date/Time: 03/09/22 15:18 Primary Reason for Your Visit: kidney stone Attending Provider: Heladio Mo Primary Care Provider: Jono Harrington Chi Discharge Orders/Prescriptions Prescriptions: New ciprofloxacin HCl [Cipro] 500 mg tablet 500 mg PO BID Qty: 10 0RF oxycodone-acetaminophen 5-325 mg tablet 1 tab PO Q6H PRN (Reason: pain) 7 Days Qty: 14 0RF Continued midodrine 5 mg tablet 5 mg PO BID Hold Instructions: Hypertension Rx Instructions: do not give last dose of day after 6PM or within 4 hrs of bedtime omeprazole 20 MG capsule 20 mg PO DAILY Label Comments: reflux tamsulosin 0.4 MG capsule,extended release 24hr 0.4 mg PO QHS levothyroxine 25 MCG tablet 25 mcg PO DAILY nitroglycerin 0.4 mg tablet, sublingual 0.4 mg sublingual Q5M PRN (Reason: CHEST PAIN) Qty: 25 3RF Label Comments: chest pain Rx Instructions: 1 tablet sublingual every 5 minutes x 3 for chest pain, if unresolved call 911 metoprolol tartrate 25 mg tablet 12.5 mg PO BID furosemide 40 mg tablet 40 mg PO DAILY Qty: 90 3RF Referrals / Follow Up: Heladio Mo MD [Med Staff - Active Staff] - Jono Harrington Chi, MD [Primary Care Provider] - Disposition Discharge Orders: Discharge Patient (Routine); Ordered 03/11/22 Ordered By: Dr. Heladio Mo
[2022-03-12 08:18] VITALS: BP 141/76; PULSE 94; RESP 16; TEMP 36.7; O2SAT 95
[2022-03-12] MEDS: Ciprofloxacin 400 MG/200 ML BAG 200 MG IV (08:29)
[2022-03-12] MEDS: Midodrine HCl 5 MG Tablet PO (08:30)
[2022-03-12 08:39] VITALS: PULSE 90
--- NOTE | 2022-03-12 08:50 | CASEMGMT ---
Notified Michelle at [facility] that pt is dc'ing today and remained in obs.
[2022-03-12 10:44] VITALS: BP 141/76; PULSE 90
[2022-03-12] MEDS: Metoprolol Tartrate 25 MG Tablet 12.5 MG PO (10:44)
[2022-03-12] MEDS: Furosemide 40 MG Tablet PO (10:46)
[2022-03-12] MEDS: Pantoprazole Sodium 20 MG Tablet PO (10:46)
[2022-03-12 11:21] VITALS: BP 107/58; PULSE 99; RESP 16; TEMP 36.5; O2SAT 98
== END 2022-03-12 11:57 | disposition home health service (06) ==
LOC: ED 07:28 → MS3 11:28
PROVIDERS: Anesthesiology; Admitting Provider Urology; Emergency Provider Emergency Medicine; PCP Family Medicine Geriatric Medicine; Visit Provider Urology
PROC: (CPT 50590; principal; 2022-03-11 16:00)
DX: N13.2 Hydronephrosis with renal and ureteral calculous obstruction (principal); I42.9 Cardiomyopathy, unspecified; I48.0 Paroxysmal atrial fibrillation; N18.30 Chronic kidney disease, stage 3 unspecified; D64.9 Anemia, unspecified; Z87.891 Personal history of nicotine dependence; E03.9 Hypothyroidism, unspecified; K21.9 Gastro-esophageal reflux disease without esophagitis; I25.10 Atherosclerotic heart disease of native coronary artery without angina pectoris; I12.9 Hypertensive chronic kidney disease with stage 1 through stage 4 chronic kidney disease, or unspecified chronic kidney disease; E78.00 Pure hypercholesterolemia, unspecified; Z95.1 Presence of aortocoronary bypass graft; Z79.899 Other long term (current) drug therapy; Z79.890 Hormone replacement therapy; I25.2 Old myocardial infarction; N40.0 Benign prostatic hyperplasia without lower urinary tract symptoms; R06.02 Shortness of breath; Z95.810 Presence of automatic (implantable) cardiac defibrillator
CPT/HCPCS: 00873; 52332; 74018; 74176; 80048; 81001; 83880; 84443; 84484; 85025; 93005; 96361; 96365; 96375; 97162; 97166; 99218; 99285; J7030; J7120; A4216; C1769; C2617; G0378; J0744; J2405

== ENCOUNTER 2022-04-03 16:19 | Observation (INO) | payer MEDICARE, SELFPAY ==
[2022-04-03] VITALS (14 sets, daily range): BP systolic 76–149; BP diastolic 42–82; PULSE 72–103; RESP 16–20; TEMP 36.5–37.1; O2SAT 94–100; BMI 20.6
[2022-04-03] MEDS: Lactated Ringers 1,000 ML 15 ML IV (11:28)
--- NOTE | 2022-04-03 11:39 | PCM.HP.STD ---
HPI - General General Date of Admission: 04/03/22 Chief Complaint: Right kidney stones HPI Narrative SHANTELL RIVERA, is a 86 M who presents for laser lithotripsy of the right kidney stones and stent placement. [facility] Medical History (Updated 04/02/22 @ 10:37 by Marija Cade) Anemia Arthritis Atherosclerosis of coronary artery bypass graft without angina pectoris Back pain Blood thinned due to long-term anticoagulant use Cardiac pacemaker Cardiology follow-up encounter Cardiomyopathy Chronic atrial fibrillation Coronary artery disease Debility Essential hypertension Falls frequently Former smoker Gastric reflux History of atrial fibrillation History of echocardiogram History of edema History of pacemaker History of stress test Hx of renal calculi Hyperthyroidism Injury of back assisted (current) use of anticoagulants Non-healing non-surgical wound Old myocardial infarction Partial bowel obstruction Peripheral vascular disease Presence of combination internal cardiac defibrillator (ICD) and pacemaker Presence of stent in coronary artery (~02/21/03) Pure hypercholesterolemia Shortness of breath on exertion Thyroid disease Thyroid dysfunction Traumatic ecchymosis of left lower leg Wears dentures Wears glasses Home Medications omeprazole 20 mg capsule,delayed release 20 mg PO DAILY GERD 02/19/15 [History Last Taken 01/12/22] tamsulosin 0.4 mg capsule 0.4 mg PO QHS prostate 07/29/17 [History Last Taken 01/12/22] nitroglycerin 0.4 mg sublingual tablet 0.4 mg sublingual Q5M PRN CHEST PAIN #25 tabs 04/23/20 [Rx Last Taken Unknown] levothyroxine 25 mcg tablet 25 mcg PO DAILY THYROID 07/10/20 [History Last Taken 01/12/22] metoprolol tartrate 25 mg tablet 12.5 mg PO BID bp 03/04/22 [History Last Taken 04/02/22] furosemide 40 mg tablet 40 mg PO DAILY #90 tabs 03/05/22 [Rx Last Taken Unknown] midodrine 5 mg tablet 5 mg PO BID bp #60 tabs 04/01/22 [Rx Last Taken Unknown] Allergy/AdvReac Type Severity Reaction Status Date / Time No Known Allergies Allergy Verified 04/02/22 10:22 Family History Father Lung cancer CVA (cerebral vascular accident) Brother Sudden cardiac Surgical History Eyelid retraction unspecified eye, unspecified lid H/O hernia repair H/O myringoplasty History of cardiac catheterization History of coronary artery stent placement History of two vessel coronary artery bypass graft (~1997) Hx of CABG Hx of cholecystectomy Presence of coronary angioplasty implant and graft (~02/21/03) ureteral stent Social History household members: none Smoking Status: Former smoker how long ago did patient quit smokin years alcohol intake: never substance use type: does not use caffeine: No Vital Signs Vital Signs Vital Signs: 04/03/22 11:20 04/03/22 11:20 Temperature 97.8 F Temperature Source Temporal Pulse Rate 92 Respiratory Rate 16 Respiratory Pattern Normal Blood Pressure 129/57 H Blood Pressure Mean 81 Blood Pressure Source Monitor Blood Pressure Position Semi-Fowlers Blood Pressure Location Left Arm Pulse Ox 100 Oxygen Delivery Method Room Air Weight Weight: 56.3 kg Body Mass Index (BMI) 20.6
[2022-04-03] MEDS: Cefazolin 2 GM in 0.9% Normal Saline 100 ML IV (13:26)
--- NOTE | 2022-04-03 14:09 | DCINST_ITS ---
Discharge Instructions Diet Discharge Diet: No restrictions, Light diet - advance as tolerated and Soft diet Activity Discharge Activity: Return to Normal Activity Follow Up Care Please Follow Up With: Heladio Mo MD Test Results: Test results from this visit will be discussed in further detail at your follow- up appointment, if applicable. Discharge Plan Admission Primary Reason for Your Visit: laser of kidney stones Attending Provider: Heladio Mo Primary Care Provider: Jono Harrington Chi Discharge Orders/Prescriptions Prescriptions: New ciprofloxacin HCl [Cipro] 500 mg tablet 500 mg PO BID Qty: 14 0RF Continued omeprazole 20 MG capsule 20 mg PO DAILY Label Comments: reflux tamsulosin 0.4 MG capsule,extended release 24hr 0.4 mg PO QHS levothyroxine 25 MCG tablet 25 mcg PO DAILY nitroglycerin 0.4 mg tablet, sublingual 0.4 mg sublingual Q5M PRN (Reason: CHEST PAIN) Qty: 25 3RF Label Comments: chest pain Rx Instructions: 1 tablet sublingual every 5 minutes x 3 for chest pain, if unresolved call 911 metoprolol tartrate 25 mg tablet 12.5 mg PO BID furosemide 40 mg tablet 40 mg PO DAILY Qty: 90 3RF midodrine 5 mg tablet 5 mg PO BID Qty: 60 11RF Hold Instructions: Hypertension Rx Instructions: do not give last dose of day after 6PM or within 4 hrs of bedtime Other Ambulatory Orders: 12 Lead EKG (Routine) Timeframe: 20220403 Location: None Selected Ordered By: Dr. Johnson Ann Referrals / Follow Up: Heladio Mo MD [Med Staff - Active Staff] - Jono Harrington Chi, MD [Primary Care Provider] - Disposition Disposition (needs filled in before D/C Order can be placed): Home, Self Care
--- NOTE | 2022-04-03 14:09 | PCM.OPRPT ---
Report of Operation Date of Procedure: 04/03/22 Pre-Operative Diagnosis: right kidney stones Post-Operative Diagnosis: Same Surgery/Procedure Performed:: Cystoscopy right ureteroscopy laser lithotripsy of stones and stent placement Description of Surgical Findings:: This is a patient who presents to the hospital for treatment for an obstructing ureter calculi. I discussed with the patient how the surgery would be performed and we reviewed the risks and benefits of the surgery. The risk and benefits include the risk of failure to remove the stone completely and that the patient may need multiple procedures. We discussed the risk of an infection, the risk of bleeding. We discussed the very rare risk of serious complicated injury to the ureter. The patient understands that if the stone is not able to be removed safely that we may abort the procedure and place a stent. After full discussion and all questions address with the patient the consent form was signed the side was marked appropriately and the patient was taken back to the operating room for the procedure. The patient was taken back to the operating room. After induction of anesthesia by the anesthesiology team the patient was placed in dorsolithotomy position. The genitals were prepped and draped in usual sterile fashion. I went into the bladder with a 21 Hungarian rigid cystourethroscope through the urethra. Upon entering the bladder I inspected the trigone the left and right ureteral orifice and the bladder itself. I then cannulated the Right ureteral orifice and advanced a 0.038 Glidewire up into the kidney. Then over the Glidewire I advanced a 5 Fr Ureteral catheter and performed a retrograde pyelogram with about 10cc of contrast, to delineate the anatomy and identify the stone location. I was able to go inside with the 7.5Fr utereroscope and I pulled out the guidewire and then through the ureteroscope I engage the stone with laser lithotripsy using a 270miron laser fiber with energy setting of 6 Hertz and 0.6 J until the stone was lasered into tiny little pieces that should pass on their own. I then backed out of the ureter left the wire in place and then over the 0.038 guidewire I placed a double coiled pigtail ureteral stent. The ureteral stent was advanced over the 0.038 guidewire under direct fluoroscopic guidance and direct cystoscopic visual guidance, once the stent was in good position I pulled the wire and the stent coiled in the kidney and bladder in good position. I then drained the patient's bladder and the cystoscope was removed and the patient was taken back to the recovery room in good position. The patient was given discharge instructions to call the office for instructions on when to come to the office to have the stent removed. Surgeon: Heladio Mo Type of Anesthesia: General Drains: stent Admit VTE Documentation VTE Present on Admission: No VTE Mechan Device Prophylaxis: SCD's
[2022-04-03] MEDS: Midodrine HCl 5 MG Tablet PO (17:17)
--- NOTE | 2022-04-03 20:03 | NURSING ---
bladder scanned since pt voiding small amt. obtained zero.
[2022-04-03] MEDS: Ciprofloxacin 400 MG/200 ML BAG 200 MG IV (20:58)
[2022-04-03] MEDS: Docusate Sodium 100 MG Capsule 200 MG PO (21:07)
[2022-04-03] MEDS: Tamsulosin HCl 0.4 MG Capsule PO (21:07)
[2022-04-04 00:25] VITALS: BP 125/66; PULSE 79; RESP 14; TEMP 36.9; O2SAT 95
[2022-04-04 04:20] VITALS: BP 126/65; PULSE 82; RESP 14; TEMP 36.9; O2SAT 95
[2022-04-04 05:00] VITALS: BP 126/65; PULSE 82; RESP 14; TEMP 36.9; O2SAT 95
[2022-04-04] MEDS: Levothyroxine 25 MCG TABLET PO (08:02)
[2022-04-04 08:25] VITALS: BP 110/48; BP 136/61; PULSE 79; PULSE 81; RESP 16; TEMP 36.4; O2SAT 100
--- NOTE | 2022-04-04 08:47 | PCM.PN.GU ---
Subjective Subjective doing well today can go home, stayed night b/c had no ride home yesturday Objective Data Objective Data Vital Signs: Vital Signs Temp Pulse Resp BP Pulse Ox O2 Del Method 97.5 F L 79 16 136/61 H 100 Room Air 04/04/22 08:25 04/04/22 08:25 04/04/22 08:25 04/04/22 08:25 04/04/22 08:25 04/04/22 08:25 Oxygen Delivery Method Room Air Weight: 56.3 kg Body Mass Index (BMI) 20.6 Intake & Output: Intake and Output for Last 24 Hours 04/02/22 04/03/22 04/04/22 23:59 23:59 23:59 Intake Total 1050 / 1050 500 / 500 Output Total 100 / 230 430 / 430 Balance 950 / 820 70 / 70
[2022-04-04] MEDS: Pantoprazole Sodium 20 MG Tablet PO (10:16)
[2022-04-04] MEDS: Midodrine HCl 5 MG Tablet PO (10:16)
[2022-04-04 10:17] VITALS: BP 136/61; PULSE 79
[2022-04-04] MEDS: Furosemide 40 MG Tablet PO (10:17)
[2022-04-04] MEDS: Docusate Sodium 100 MG Capsule 200 MG PO (10:17)
[2022-04-04] MEDS: Metoprolol Tartrate 25 MG Tablet 12.5 MG PO (10:17)
[2022-04-04 12:48] VITALS: BP 110/48; PULSE 81; RESP 18; TEMP 36.5; O2SAT 100
--- NOTE | 2022-04-06 12:47 | CASEMGMT ---
-TC from Stefanie with [facility]. Stefanie stated pt is enroute. Pt has been staying on his [id number][id number][place] property in a mobile home. The uhtidp-ui-ult left for the winter.?Per Stefanie, pt has no support and cannot live alone. [facility] was contacted by Stefanie. [facility] planned to go out to the home again. Stefanie stated pt has memory issues and has had low blood pressure. Pt had a lithotripsy and stent placement on 04/03. Pt is linked with [facility] but d/t [facility] involvement, [facility] has not been to the home. Pt is interested in SNF.
== END 2022-04-04 12:49 | disposition home or self-care (01) ==
LOC: SDC 16:24 → MS3 16:24
PROVIDERS: Admitting Provider Urology; PCP Family Medicine Geriatric Medicine; Referring Provider Urology; Visit Provider Urology
PROC: 0TJ98ZZ Inspection of Ureter, Via Natural or Artificial Opening Endoscopic (ICD-10-PCS; CPT 52352; principal; 2022-04-03 12:35)
DX: N20.0 Calculus of kidney (principal); I42.9 Cardiomyopathy, unspecified; I11.0 Hypertensive heart disease with heart failure; I50.32 Chronic diastolic (congestive) heart failure; I48.20 Chronic atrial fibrillation, unspecified; I25.10 Atherosclerotic heart disease of native coronary artery without angina pectoris; E78.00 Pure hypercholesterolemia, unspecified; Z87.891 Personal history of nicotine dependence; E07.9 Disorder of thyroid, unspecified; Z79.899 Other long term (current) drug therapy; Z79.890 Hormone replacement therapy; K21.9 Gastro-esophageal reflux disease without esophagitis; M19.90 Unspecified osteoarthritis, unspecified site; Z95.810 Presence of automatic (implantable) cardiac defibrillator; I25.2 Old myocardial infarction; Z95.1 Presence of aortocoronary bypass graft
CPT/HCPCS: 52353; 52332; 00910; 76000; 93005; 96361; 96365; 99218; 99251; J7040; J7120; C1769; C2617; G0378; G0463; J0744; J2405

== ENCOUNTER 2022-04-06 12:50 | Emergency (ER) | payer MEDICARE, SELFPAY ==
[2022-04-06 12:54] VITALS: BP 90/78; PULSE 83; RESP 17; TEMP 36.6; O2SAT 98; BMI 22.3
--- NOTE | 2022-04-06 13:52 | EKG12_ITS ---
Test Reason : PREOP Blood Pressure : / mmHG Vent. Rate : 100 BPM Atrial Rate : 340 BPM P-R Int : 000 ms QRS Dur : 112 ms QT Int : 366 ms P-R-T Axes : 000 016 -07 degrees QTc Int : 472 ms Atrial fibrillation Nonspecific ST and T wave abnormality Prolonged QT Abnormal ECG Confirmed by SAMRA TABOR, DYLAN ([id number]), news video editor LEESA MARTINEZ ([id number]) on 04/08/2022 9:05:04 AM Referred By: GEETHA Confirmed By:DYLAN CABRALES MD
[2022-04-06] MEDS: 0.9% Normal Saline 1,000 ML 1000 ML IV (13:55)
--- NOTE | 2022-04-06 13:58 | NURSING ---
NO OLD EKGS
[2022-04-06 14:00] VITALS: BP 113/72
--- NOTE | 2022-04-06 14:03 | EKG12_ITS ---
Test Reason : HYPOTENSION Blood Pressure : / mmHG Vent. Rate : 080 BPM Atrial Rate : 468 BPM P-R Int : 000 ms QRS Dur : 108 ms QT Int : 392 ms P-R-T Axes : 000 004 -54 degrees QTc Int : 452 ms Atrial fibrillation with frequent ventricular-paced complexes Nonspecific ST and T wave abnormality Abnormal ECG Confirmed by SAMRA TABOR, DYLAN ([id number]), science editor LEESA MARTINEZ ([id number]) on 04/08/2022 11:10:12 AM Referred By: Heladio Mo Confirmed By:DYLAN CABRALES MD
[2022-04-06 14:30] LABS: Absolute Lymphocyte Count 0.84 X10^3/uL (0.83-4.51); Absolute Neutrophil Count 2.7 X10^3/uL (2.0-7.7); Basophil# 0.02 X10^3/uL; Basophil% 0.5 % (0-1); Eosinophil# 0.08 X10^3/uL; Eosinophils% 1.9 % (0-5); Hematocrit 31.8 % (40-54); Hemoglobin 10.3 g/dL (13.0-16.5); Lymphocyte # 0.84 X10^3/ul (0.83-4.51); Lymphocyte % 20.2 % (19-41); Mean Corp Hgb Conc 32.4 g/dL (32-36); Mean Corpuscular Hgb 29.9 pg (27.0-32.0); Mean Corpuscular Volume 92.2 fL (80-94); Mean Platelet Vol. 10.5 fl (6.2-12.0); Monocyte# 0.53 X10^3/uL; Monocyte% 12.8 % (0-10); NRBC Flagged by Analyzer 0 % (0-5); Neutrophil # 2.67 X10^3/uL (2.7-7.7); Neutrophil % 64.4 % (47-70); Platelet Count 147 K/mm3 (150-450); RBC Distribution Width CV 13.7 % (11.6-14.6); RBC Distribution Width SD 46.4 fl (35.1-43.9); Red Blood Count 3.45 M/mm3 (4.6-6.2); White Blood Count 4.2 K/mm3 (4.4-11.0)
--- NOTE | 2022-04-06 14:37 | CASEMGMT ---
-Complex Senior Product Development Scientist in to speak with pt. Pt denied being interested in SNF. Pt denied telling [facility] that he would be interested in a SNF placement. Pt stated that would be his last resort. Pt wants aide service for cleaning. Pt does not have any support as ubgtov-vy-qtz did move for 4 months. Pt has MOW and has boxes accumulated from the meals. See note below that was copied and pasted. -TC from Stefanie with [facility]. Stefanie stated pt is enroute. Pt has been staying on his wsjsqt-cx-cuf's property in a mobile home. The cpwfrr-sv-erl left for the winter. Per Stefanie, pt has no support and cannot live alone. [facility] was contacted by Stefanie. [facility] planned to go out to the home again. Stefanie stated pt has memory issues and has had low blood pressure. Pt had a lithotripsy and stent placement on 04/03. Pt is linked with [facility] but d/t [facility] involvement, [facility] has not been to the home. Pt is interested in SNF.?
--- NOTE | 2022-04-06 14:40 | RAD_ITS ---
STUDY: X-RAY CHEST REASON FOR EXAM: Male, 86 years old. Hypotension TECHNIQUE: Single AP portable view of the chest. COMPARISON: Comparison is made with prior study dated 03/05/2022. FINDINGS: EKG electrodes are seen. Residual blunting of the left costophrenic angle. Since prior study, there has been improved aeration of both lung bases. Mild residual basilar scarring is seen. 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 Left-sided dual-chamber pacemaker. Normal mediastinum and jostin. Normal visualized pulmonary arteries. There is atherosclerotic calcification of the aortic arch with tortuosity. Normal visualized thoracic spine. A metallic nail is seen in the left humeral head. There is no demonstrated abnormality of the visualized soft tissue structures of the upper abdomen. RAD/Chest 1 View (Portable) IMPRESSION: Mild residual blunting of the left costophrenic angle with improved aeration at both lung bases. Mild degree of linear scarring at the lung bases. Electronically Signed: Royer Pineda MD at 14:53 EST ,
[2022-04-06 14:45] VITALS: BP 123/76
[2022-04-06 14:50] LABS: ALB/GLOB Ratio 1.1 RATIO (0.9-2.4); AST(SGOT) 22 U/L (15-37); Alanine Aminotransfer ALT/SGPT 15 U/L (16-61); Albumin, Serum 2.8 g/dL (3.2-5.0); Alkaline Phosphatase 48 U/L (45-117); Anion Gap 4 (5-15); BUN 17 mg/dL (7-18); BUN/Creat Ratio 13.6 RATIO (10-20); Calcium,Total 8.6 mg/dL (8.5-10.1); Chloride 106 mmol/L (98-107); Creatinine, Serum 1.25 mg/dL (0.70-1.30); EST Glomerular Filtration Rate 58 mL/min (>60); Est Glom Filt Rate - Afr Amer 71 mL/min (>60); Estimated Creatinine Clearance 37.16 ml/min; Globulin 2.6 g/dL (2.2-4.2); Glucose 101 mg/dL (74-106); Protein, Total 5.4 g/dL (6.4-8.2); Sodium Level 142 mmol/L (136-145); Troponin-I HS 13 pg/mL (3.0-78.0)
[2022-04-06 14:51] LABS: Lactic Acid 1.3 mmol/L (0.4-1.9)
[2022-04-06 15:22] LABS: Bacteria 0 SEEN /hpf (None Seen); Mucous, Urine 0 SEEN /hpf (<or=2+); Squamous Epithelial Cells - UA 0 SEEN /hpf (0-5)
[2022-04-06 15:31] LABS: Color, Urine Yellow (Yellow); Glucose, Dipstick Normal (Normal); Ketone-Dipstick Negative (Negative); Leukocyte Esterase-Dipstick 500 /ul (Negative); Nitrite-Dipstick Negative (Negative); Occult Blood-Urine 150 /ul (Negative); Protein-Dipstick 15 mg/dl (Negative); Urine Bilirubin Dipstick Negative (Negative); Urine Clarity Clear (Clear); Urine Urobilinogen Normal (Normal)
[2022-04-06 15:37] VITALS: BP 109/73; BP 112/71; BP 139/58; PULSE 70; PULSE 75; PULSE 84
[2022-04-06 15:45] LABS: Red Blood Cells-Urine 5-10 SEEN /hpf (0-5); White Blood Cells 0-5 SEEN /hpf (0-5)
--- NOTE | 2022-04-06 15:57 | EX.ED.DYSGE1 ---
HPI History of Present Illness Chief Complaint: Hypotension [facility] Medical History (Updated 04/06/22 @ 15:[address] Desmond Ballard, DO) Anemia Arthritis Atherosclerosis of coronary artery bypass graft without angina pectoris Back pain Blood thinned due to long-term anticoagulant use Cardiac pacemaker Cardiology follow-up encounter Cardiomyopathy Chronic atrial fibrillation Coronary artery disease Debility Essential hypertension Falls frequently Former smoker Gastric reflux History of atrial fibrillation History of echocardiogram History of edema History of pacemaker History of stress test Hx of renal calculi Hyperthyroidism Injury of back group home (current) use of anticoagulants Non-healing non-surgical wound Old myocardial infarction Partial bowel obstruction Peripheral vascular disease Presence of combination internal cardiac defibrillator (ICD) and pacemaker Presence of stent in coronary artery (~02/21/03) Pure hypercholesterolemia Shortness of breath on exertion Thyroid disease Thyroid dysfunction Traumatic ecchymosis of left lower leg Wears dentures Wears glasses Home Medications omeprazole 20 mg capsule,delayed release 20 mg PO DAILY GERD 02/19/15 [History Last Taken 01/12/22] tamsulosin 0.4 mg capsule 0.4 mg PO QHS prostate 07/29/17 [History Last Taken 01/12/22] nitroglycerin 0.4 mg sublingual tablet 0.4 mg sublingual Q5M PRN CHEST PAIN #25 tabs 04/23/20 [Rx Last Taken Unknown] levothyroxine 25 mcg tablet 25 mcg PO DAILY THYROID 07/10/20 [History Last Taken 01/12/22] metoprolol tartrate 25 mg tablet 12.5 mg PO BID bp 03/04/22 [History Last Taken 04/02/22] furosemide 40 mg tablet 40 mg PO DAILY #90 tabs 03/05/22 [Rx Last Taken Unknown] midodrine 5 mg tablet 5 mg PO BID bp #60 tabs 04/01/22 [Rx Last Taken Unknown] ciprofloxacin HCl 500 mg tablet (Cipro) 500 mg PO BID #14 tabs 04/03/22 [Rx Last Taken Unknown] Allergy/AdvReac Type Severity Reaction Status Date / Time No Known Allergies Allergy Verified 04/06/22 12:52 Family History Father Lung cancer CVA (cerebral vascular accident) Brother Sudden cardiac Surgical History Eyelid retraction unspecified eye, unspecified lid H/O hernia repair H/O myringoplasty History of cardiac catheterization History of coronary artery stent placement History of two vessel coronary artery bypass graft (~1997) Hx of CABG Hx of cholecystectomy Presence of coronary angioplasty implant and graft (~02/21/03) ureteral stent Social History household members: none Smoking Status: Former smoker how long ago did patient quit smokin years alcohol intake: never substance use type: does not use caffeine: No EXAM Physical Exam Const Vital Signs: 04/06/22 12:54 04/06/22 12:54 04/06/22 15:37 Temperature 97.9 F Temperature Source Oral Pulse Rate 83 Pulse Rate [Lying] 70 Pulse Rate [Sitting (for 1 minute prior to obtaining)] 84 Pulse Rate [Standing (for 1 minute prior to obtaining)] 75 Respiratory Rate 17 Respiratory Effort Normal Non-Labored Respiratory Pattern Normal Blood Pressure 90/78 Blood Pressure [Lying] 139/58 H Blood Pressure [Sitting (for 1 minute prior to obtaining)] 109/73 Blood Pressure [Standing (for 1 minute prior to obtaining)] 112/71 Blood Pressure Mean 82 Blood Pressure Mean [Lying] 85 Blood Pressure Mean [Sitting (for 1 minute prior to obtaining)] 85 Blood Pressure Mean [Standing (for 1 minute prior to obtaining)] 84 Pulse Ox 98 Oxygen Delivery Method Room Air 04/06/22 14:00 04/06/22 14:45 Temperature Temperature Source Pulse Rate Pulse Rate [Lying] Pulse Rate [Sitting (for 1 minute prior to obtaining)] Pulse Rate [Standing (for 1 minute prior to obtaining)] Respiratory Rate Respiratory Effort Respiratory Pattern Blood Pressure 113/72 123/76 H Blood Pressure [Lying] Blood Pressure [Sitting (for 1 minute prior to obtaining)] Blood Pressure [Standing (for 1 minute prior to obtaining)] Blood Pressure Mean 85 91 Blood Pressure Mean [Lying] Blood Pressure Mean [Sitting (for 1 minute prior to obtaining)] Blood Pressure Mean [Standing (for 1 minute prior to obtaining)] Pulse Ox Oxygen Delivery Method MDM MDM MDM Narrative Medical decision making narrative: Basic blood work showed hemoglobin 10.3. Lactic acid is normal. BUN of 17 with a creatinine of 1.25.. Urinalysis is negative. Patient received a liter of IV fluids. He is not orthostatic. His blood pressure has been significantly improved currently 140 systolic clinic at this point patient will discharge home. He feels well enough and comfortable enough going home. Lab Data Attestation: I reviewed the patient's lab results. Labs: Laboratory Results - last 24 hr 04/06/22 04/06/22 04/06/22 13:30 13:30 14:20 WBC 4.2 L RBC 3.45 L Hgb 10.3 L Hct 31.8 L MCV 92.2 MCH 29.9 MCHC 32.4 RDW Std Deviation 46.4 H RDW Coeff of Del 13.7 Plt Count 147 L MPV 10.5 Immature Gran % (Auto) 0.200 Neut % (Auto) 64.4 Lymph % (Auto) 20.2 [place] % (Auto) 12.8 H Eos % (Auto) 1.9 Baso % (Auto) 0.5 Absolute Neuts (auto) 2.7 Absolute Lymphs (auto) 0.84 Nucleated RBC % 0 Sodium 142 Potassium 3.0 L Chloride 106 Carbon Dioxide 32.0 Anion Gap 4 L BUN 17 Creatinine 1.25 Estim Creat Clear Calc 37.16 Est GFR (MDRD) Af Amer 71 Est GFR (MDRD) Non-Af 58 L BUN/Creatinine Ratio 13.6 Glucose 101 Lactic Acid 1.3 Calcium 8.6 Total Bilirubin 0.40 AST 22 ALT 15 L Alkaline Phosphatase 48 Troponin I High Sens 13 Total Protein 5.4 L Albumin 2.8 L Globulin 2.6 Albumin/Globulin Ratio 1.1 Urine Color Urine Clarity Urine pH Ur Specific [place] Urine Protein Urine Glucose (UA) Urine Ketones Urine Occult Blood Urine Nitrite Urine Bilirubin Urine Urobilinogen Ur Leukocyte Esterase Urine RBC Urine WBC Ur Squamous Epith Cells Urine Bacteria Urine Mucus 04/06/22 15:15 WBC RBC Hgb Hct MCV MCH MCHC RDW Std Deviation RDW Coeff of Del Plt Count MPV Immature Gran % (Auto) Neut % (Auto) Lymph % (Auto) [place] % (Auto) Eos % (Auto) Baso % (Auto) Absolute Neuts (auto) Absolute Lymphs (auto) Nucleated RBC % Sodium Potassium Chloride Carbon Dioxide Anion Gap BUN Creatinine Estim Creat Clear Calc Est GFR (MDRD) Af Amer Est GFR (MDRD) Non-Af BUN/Creatinine Ratio Glucose Lactic Acid Calcium Total Bilirubin AST ALT Alkaline Phosphatase Troponin I High Sens Total Protein Albumin Globulin Albumin/Globulin Ratio Urine Color Yellow Urine Clarity Clear Urine pH 7.0 Ur Specific [place] 1.010 Urine Protein 15 H Urine Glucose (UA) Normal Urine Ketones Negative Urine Occult Blood 150 H Urine Nitrite Negative Urine Bilirubin Negative Urine Urobilinogen Normal Ur Leukocyte Esterase 500 H Urine RBC 5-10 SEEN Urine WBC 0-5 SEEN Ur Squamous Epith Cells 0 SEEN Urine Bacteria 0 SEEN Urine Mucus 0 SEEN Radiography Diagnostic Testing: Clinical Impression(s) from Imaging Studies Chest X-Ray 04/06/22 14:40 IMPRESSION: Mild residual blunting of the left costophrenic angle with improved aeration at both lung bases. Mild degree of linear scarring at the lung bases. Electronically Signed: Royer Pineda MD at 14:53 EST , EKG Initial EKG: Attestation: I personally reviewed and interpreted this EKG as follows: Comments: Atrial fibrillation with a ventricular rate of 80 bpm and PVCs. Discharge Plan Triage Chief Complaint: Hypotension ED Provider: Desmond Ballard Dx/Rx/DC Orders Clinical Impression: Orthostatic hypotension, Chronic atrial fibrillation, Atherosclerosis of coronary artery bypass graft without angina pectoris, Chronic diastolic (congestive) heart failure Instructions: Hypotension Dc Prescriptions: No Action omeprazole 20 MG capsule 20 mg PO DAILY Label Comments: reflux tamsulosin 0.4 MG capsule,extended release 24hr 0.4 mg PO QHS levothyroxine 25 MCG tablet 25 mcg PO DAILY ciprofloxacin HCl [Cipro] 500 mg tablet 500 mg PO BID Qty: 14 0RF nitroglycerin 0.4 mg tablet, sublingual 0.4 mg sublingual Q5M PRN (Reason: CHEST PAIN) Qty: 25 3RF Label Comments: chest pain Rx Instructions: 1 tablet sublingual every 5 minutes x 3 for chest pain, if unresolved call 911 metoprolol tartrate 25 mg tablet 12.5 mg PO BID furosemide 40 mg tablet 40 mg PO DAILY Qty: 90 3RF midodrine 5 mg tablet 5 mg PO BID Qty: 60 11RF Hold Instructions: Hypertension Rx Instructions: do not give last dose of day after 6PM or within 4 hrs of bedtime Primary Care Provider: Jono Harrington Chi Referrals: Jono Harrington Chi, MD [Primary Care Provider] - As Needed Disposition Disposition: Home, Self Care
[2022-04-06 16:02] VITALS: BP 127/82; PULSE 87; RESP 29; O2SAT 99
== END 2022-04-06 16:30 | disposition home or self-care (01) ==
PROVIDERS: Emergency Provider Emergency Medicine; PCP Family Medicine Geriatric Medicine; Visit Provider Emergency Medicine
DX: I95.1 Orthostatic hypotension (principal); I11.0 Hypertensive heart disease with heart failure; I50.32 Chronic diastolic (congestive) heart failure; I42.9 Cardiomyopathy, unspecified; I48.20 Chronic atrial fibrillation, unspecified; I25.10 Atherosclerotic heart disease of native coronary artery without angina pectoris; I25.2 Old myocardial infarction; K21.9 Gastro-esophageal reflux disease without esophagitis; Z95.810 Presence of automatic (implantable) cardiac defibrillator; Z95.1 Presence of aortocoronary bypass graft; Z95.5 Presence of coronary angioplasty implant and graft; Z79.899 Other long term (current) drug therapy; Z87.891 Personal history of nicotine dependence
CPT/HCPCS: 71045; 80053; 81001; 83605; 84484; 85025; 93005; 96360; 99285; A4216

== ENCOUNTER 2022-04-08 13:48 | Outpatient (RCR) | payer MEDICARE, SELFPAY ==
[2022-04-08 14:48] LABS: Anion Gap 6 (5-15); BUN 21 mg/dL (7-18); BUN/Creat Ratio 16.2 RATIO (10-20); Calcium,Total 9.3 mg/dL (8.5-10.1); Chloride 105 mmol/L (98-107); EST Glomerular Filtration Rate 56 mL/min (>60); Est Glom Filt Rate - Afr Amer 67 mL/min (>60); Glucose 148 mg/dL (74-106); Potassium 3.1 mmol/L (3.5-5.1); Sodium Level 142 mmol/L (136-145)
== END 2022-04-08 18:00 ==
LOC: HHLAB 13:48
PROVIDERS: Nurse Practitioner Gerontology; PCP Family Medicine Geriatric Medicine; Referring Provider Internal Medicine Cardiovascular Disease; Visit Provider Internal Medicine Cardiovascular Disease
DX: I48.91 Unspecified atrial fibrillation (principal); I50.32 Chronic diastolic (congestive) heart failure; I95.1 Orthostatic hypotension
CPT/HCPCS: 80048

== ENCOUNTER 2022-04-10 12:09 | Observation (INO) | payer MEDICARE, SELFPAY ==
[2022-04-10 12:10] VITALS: BP 122/85; PULSE 87; RESP 23; TEMP 36.7; O2SAT 100; BMI 21.5
--- NOTE | 2022-04-10 13:09 | EKG12_ITS ---
Test Reason : WEAK, FALLX2 TODAY Blood Pressure : / mmHG Vent. Rate : 096 BPM Atrial Rate : 000 BPM P-R Int : 000 ms QRS Dur : 110 ms QT Int : 380 ms P-R-T Axes : 000 009 -81 degrees QTc Int : 480 ms Atrial fibrillation with occasional ventricular-paced complexes and with premature ventricular or glory rrantly conducted complexes Minimal voltage criteria for LVH, may be normal variant ( Timothy product ) ST & T wave abnormality, consider anterolateral ischemia Prolonged QT Abnormal ECG Confirmed by QUINTEN TABOR, HARRY ([id number]), marketing editor LEESA MARTINEZ ([id number]) on 04/13/2022 12:58:22 PM Referred By: YOSHI Confirmed By:HARRY SHIPLEY MD
--- NOTE | 2022-04-10 13:09 | CT_ITS ---
STUDY: CT BRAIN WITHOUT CONTRAST REASON FOR EXAM: Male, 86 years old. Falls, head injury RADIATION DOSAGE (If Supplied By Facility): CTDIvol = ( 44.99 ) mGy, DLP = ( 829.85 ) mGycm TECHNIQUE: Transaxial CT imaging of the brain was performed without administration of intravenous contrast material. Individualized dose optimization techniques were used for this CT. COMPARISON: Comparison is made with prior study dated 01/13/2022. FINDINGS: Normal soft tissue structures. Normal calvarium. There is mild cerebral atrophy with widening of the extra-axial spaces and ventricular dilatation. There are areas of decreased attenuation within the white matter tracts of the supratentorial brain, consistent with microvascular disease changes. There are small punctate calcifications of the basal ganglia which are seen in the aging brain as a normal variant. Normal brainstem. Normal cerebellum. There is no intracranial hemorrhage. There are no findings of an acute ischemic infarction. Atherosclerotic calcification of the vertebral arteries and cavernous portions of the internal carotid arteries bilaterally. Normal visualized paranasal sinuses. CT/Brain/Head without Contrast IMPRESSION: Chronic involutional changes of the brain. Electronically Signed: Royer Pineda MD at 14:20 EST ,
--- NOTE | 2022-04-10 13:11 | EDS_ITS ---
HPI HPI - Fall History of Present Illness Chief Complaint: Fall Detail of Chief Complaint: Falls x2 today Informant: patient Narrative Narrative: Patient presents emerged department stating that he is fallen twice today. Patient states that both times he was standing at the toilet urinating. Patient states this comes on suddenly. He did hit his head the first time but no loss of consciousness. Patient denies any neck pain. He denies chest pain currently. But states while in the emergency department he had an episode for about 5 minutes where he had a burning pain in his chest. Patient does have a pacemaker. Denies recent illness. Patient states that he does not feel safe going back home as he lives alone and he is weak. Patient denies urinary symptoms or recent illness. [facility] Medical History (Updated 04/10/22 @ 15:[address] 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 Non-healing non-surgical wound Old myocardial infarction Partial bowel obstruction Peripheral vascular disease Presence of combination internal cardiac defibrillator (ICD) and pacemaker Presence of stent in coronary artery (~02/21/03) Pure hypercholesterolemia Shortness of breath on exertion Thyroid disease Thyroid dysfunction Traumatic ecchymosis of left lower leg Wears dentures Wears glasses Home Medications omeprazole 20 mg capsule,delayed release 20 mg PO DAILY GERD 02/19/15 [History Last Taken 01/12/22] tamsulosin 0.4 mg capsule 0.4 mg PO QHS prostate 07/29/17 [History Last Taken 01/12/22] nitroglycerin 0.4 mg sublingual tablet 0.4 mg sublingual Q5M PRN CHEST PAIN #25 tabs 04/23/20 [Rx Last Taken Unknown] levothyroxine 25 mcg tablet 25 mcg PO DAILY THYROID 07/10/20 [History Last Taken 01/12/22] metoprolol tartrate 25 mg tablet 12.5 mg PO BID bp 03/04/22 [History Last Taken 04/02/22] midodrine 5 mg tablet 5 mg PO BID bp #60 tabs 04/01/22 [Rx Last Taken Unknown] ciprofloxacin HCl 500 mg tablet (Cipro) 500 mg PO BID #14 tabs 04/03/22 [Rx Last Taken Unknown] potassium chloride 20 mEq tablet,extended release 20 meq PO DAILY #30 tabs 04/08/22 [Rx Last Taken Unknown] spironolactone 25 mg tablet 25 mg PO DAILY #90 tabs 04/10/22 [Rx Last Taken Unkn own] Allergy/AdvReac Type Severity Reaction Status Date / Time No Known Allergies Allergy Verified 04/06/22 12:52 Family History Father Lung cancer CVA (cerebral vascular accident) Brother Sudden cardiac Surgical History Eyelid retraction unspecified eye, unspecified lid H/O hernia repair H/O myringoplasty History of cardiac catheterization History of coronary artery stent placement History of two vessel coronary artery bypass graft (~1997) Hx of CABG Hx of cholecystectomy Presence of coronary angioplasty implant and graft (~02/21/03) ureteral stent Social History household members: none Smoking Status: Former smoker how long ago did patient quit smokin years alcohol intake: never substance use type: does not use caffeine: No ROS ROS ED ROS Narrative Falls x2 Review of Systems ROS Unobtainable: other Constitutional Constitutional ED: Reports lethargy; Denies chills, fever(s), sweats or weight loss Eyes Eyes: Denies blurry vision, change in vision or diplopia ENT ENT ED: Denies rhinorrhea or sore throat Cardiovascular Cardiovascular: Reports chest pain; Denies orthopnea or racing heartbeat Respiratory/Chest Respiratory/Chest: Denies cough, dyspnea, dyspnea on exertion, orthopnea or sputum Gastrointestinal Gastrointestinal: Denies abdominal pain, diarrhea, nausea or vomiting Genitourinary Genitourinary ED: Denies dysuria, hematuria or urinary frequency Musculoskeletal Musculoskeletal: Denies arthralgias, back pain, myalgias or neck pain Integumentary Denies abscess, Abrasions or rash Neurologic Neurologic: Reports headache(s) and weakness Psychiatric Psychiatric: Denies anxiety, depression or suicidal thoughts Endocrine Endocrinology: Denies polydipsia, polyphagia or polyuria Hematologic/Lymphatic Hematologic/Lymphatic: Denies easy bleeding, easy bruising or lymphadenopathy Allergic/Immunologic Allergic/Immunologic ED: Denies mouth swelling, tongue swelling or urticaria EXAM Physical Exam Const Vital Signs: 04/10/22 12:10 04/10/22 12:14 Temperature 98.1 F Temperature Source Temporal Pulse Rate 87 Respiratory Rate 23 H Respiratory Effort Normal Respiratory Depth Normal Blood Pressure 122/85 H Blood Pressure Mean 97 Pulse Ox 100 Oxygen Delivery Method Room Air Positive well nourished and well developed General Appearance ED: well developed and NAD HEENT Reports TM's clear and moist mucous membranes normocephalic and atraumatic; Negative for trauma or tenderness Tympanic Membrane ED: Yes TM's clear Eyes PERRL and EOMs intact bilaterally General Eye ED: Negative for pale conjunctiva or scleral icterus Neck no lymphadenopathy, supple and no JVD General: Negative for tenderness Chest Wall inspection of chest normal and palpation of chest normal Chest: Negative for tenderness Resp normal respiratory effort and clear to auscultation bilaterally Effort and Inspection: Negative for respiratory distress or pain with movement Auscultation: Negative for rhonchi, wheezes or diminished lung sounds Cardio regular rate, regular rhythm, S1 normal heart sound, S2 normal heart sound and no murmurs Peripheral Pulses: pulses 2+ throughout GI normal to inspection, nondistended, normoactive bowel sounds, soft to palpation, non-tender, non-distended and no masses Back/Spine no CVA tenderness and no thoracic nor lumbar tenderness Extremity normal to inspection General Extremety ED: Negative for edema General Extremity: Negative for edema Neuro oriented x3, CN's II-XII intact bilaterally, no sensory deficits noted and gait normal Sensorium / Orientation: awake, alert, oriented to person, oriented to place and oriented to time Motor Exam: strength 5/5 throughout and strength abnormal Psych mental status grossly normal Skin no rashes or lesions noted and no wounds MDM MDM MDM Narrative Medical decision making narrative: IV line established on arrival. Patient placed on cardiac cath rn. CBC with differential count 4.8, hemoglobin 11, hematocrit 35, platelets 165. Chemistrie s unremarkable. Urinalysis unremarkable. We did have the pacemaker interrogated and I have not heard back as of yet regarding findings. Case will be discussed with hospitalist evaluate for admission for frequent falls and failure to thrive. Social work will also be involved. I am told patient does not have running water and he has been urinating in a bucket. Lab Data Attestation: I reviewed the patient's lab results. Labs: Laboratory Results - last 24 hr 04/10/22 04/10/22 04/10/22 13:05 13:05 15:00 WBC 4.8 RBC 3.82 L Hgb 11.1 L Hct 34.9 L MCV 91.4 MCH 29.1 MCHC 31.8 L RDW Std Deviation 45.8 H RDW Coeff of Del 13.9 Plt Count 165 MPV 10.6 Immature Gran % (Auto) 0.200 Neut % (Auto) 67.4 Lymph % (Auto) 20.5 [place] % (Auto) 10.3 H Eos % (Auto) 1.0 Baso % (Auto) 0.6 Absolute Neuts (auto) 3.2 Absolute Lymphs (auto) 0.98 Nucleated RBC % 0 Sodium 141 Potassium 3.4 L Chloride 105 Carbon Dioxide 29.0 Anion Gap 7 BUN 18 Creatinine 1.54 H Estim Creat Clear Calc 29.12 Est GFR (MDRD) Af Amer 55 L Est GFR (MDRD) Non-Af 46 L BUN/Creatinine Ratio 11.7 Glucose 104 Calcium 9.6 Troponin I High Sens 14 Urine Color Yellow Urine Clarity Sl. Cloudy Urine pH 8.0 Ur Specific [place] 1.015 Urine Protein 100 H Urine Glucose (UA) Normal Urine Ketones Negative Urine Occult Blood 250 H Urine Nitrite Negative Urine Bilirubin Negative Urine Urobilinogen Normal Ur Leukocyte Esterase 100 H Radiography Diagnostic Testing: Clinical Impression(s) from Imaging Studies Brain CT 04/10/22 13:09 IMPRESSION: Chronic involutional changes of the brain. Electronically Signed: Royer Pineda MD at 14:20 EST , Chest X-Ray 04/10/22 13:50 IMPRESSION: Mild stable increased linear markings at the left lung base with blunting of the left costophrenic angle suggestive of scarring. Electronically Signed: Royer Pineda MD at 14:22 EST , 1 view chest are obtained interpreted by myself as no acute disease process. Radiology felt there was mild stable increased linear markings left lung base with blunting of the left gastric phrenic angle suggestive of scarring. EKG Initial EKG: Attestation: I personally reviewed and interpreted this EKG as follows: Comments: Atrial fibrillation with a rate of 96 bpm with occasional PVCs and nonspecific ST changes Discharge Plan Triage Chief Complaint: Fall ED Provider: Jimbo Catalan Dx/Rx/DC Orders Clinical Impression: Falls, Atrial fibrillation, Weakness, Adult failure to thrive Prescriptions: No Action omeprazole 20 MG capsule 20 mg PO DAILY Label Comments: reflux tamsulosin 0.4 MG capsule,extended release 24hr 0.4 mg PO QHS levothyroxine 25 MCG tablet 25 mcg PO DAILY ciprofloxacin HCl [Cipro] 500 mg tablet 500 mg PO BID Qty: 14 0RF nitroglycerin 0.4 mg tablet, sublingual 0.4 mg sublingual Q5M PRN (Reason: CHEST PAIN) Qty: 25 3RF Label Comments: chest pain Rx Instructions: 1 tablet sublingual every 5 minutes x 3 for chest pain, if unresolved call 911 metoprolol tartrate 25 mg tablet 12.5 mg PO BID midodrine 5 mg tablet 5 mg PO BID Qty: 60 11RF Hold Instructions: Hypertension Rx Instructions: do not give last dose of day after 6PM or within 4 hrs of bedtime potassium chloride 20 mEq tablet extended release 20 meq PO DAILY Qty: 30 11RF spironolactone 25 mg tablet 25 mg PO DAILY Qty: 90 3RF Primary Care Provider: Jono Harrington Chi Referrals: Jono Harrington Chi, MD [Primary Care Provider] - Disposition Disposition: Acute Care Hospital [facility]
[2022-04-10] MEDS: 0.9% Normal Saline 1,000 ML 150 ML IV ×2 (13:27→17:31)
[2022-04-10 13:30] LABS: Absolute Lymphocyte Count 0.98 X10^3/uL (0.83-4.51); Absolute Neutrophil Count 3.2 X10^3/uL (2.0-7.7); Basophil# 0.03 X10^3/uL; Basophil% 0.6 % (0-1); Eosinophil# 0.05 X10^3/uL; Hematocrit 34.9 % (40-54); Hemoglobin 11.1 g/dL (13.0-16.5); Lymphocyte # 0.98 X10^3/ul (0.83-4.51); Lymphocyte % 20.5 % (19-41); Mean Corp Hgb Conc 31.8 g/dL (32-36); Mean Corpuscular Hgb 29.1 pg (27.0-32.0); Mean Corpuscular Volume 91.4 fL (80-94); Mean Platelet Vol. 10.6 fl (6.2-12.0); Monocyte# 0.49 X10^3/uL; Monocyte% 10.3 % (0-10); NRBC Flagged by Analyzer 0 % (0-5); Neutrophil # 3.21 X10^3/uL (2.7-7.7); Neutrophil % 67.4 % (47-70); Platelet Count 165 K/mm3 (150-450); RBC Distribution Width CV 13.9 % (11.6-14.6); RBC Distribution Width SD 45.8 fl (35.1-43.9); Red Blood Count 3.82 M/mm3 (4.6-6.2); White Blood Count 4.8 K/mm3 (4.4-11.0)
[2022-04-10 13:46] LABS: Anion Gap 7 (5-15); BUN 18 mg/dL (7-18); BUN/Creat Ratio 11.7 RATIO (10-20); Calcium,Total 9.6 mg/dL (8.5-10.1); Chloride 105 mmol/L (98-107); Creatinine, Serum 1.54 mg/dL (0.70-1.30); EST Glomerular Filtration Rate 46 mL/min (>60); Est Glom Filt Rate - Afr Amer 55 mL/min (>60); Estimated Creatinine Clearance 29.12 ml/min; Glucose 104 mg/dL (74-106); Potassium 3.4 mmol/L (3.5-5.1); Sodium Level 141 mmol/L (136-145); Troponin-I HS 14 pg/mL (3.0-78.0)
--- NOTE | 2022-04-10 13:50 | RAD_ITS ---
STUDY: X-RAY CHEST REASON FOR EXAM: Male, 86 years old. Falls TECHNIQUE: Single AP portable view of the chest. COMPARISON: Comparison is made with prior study dated 04/06/2022. FINDINGS: EKG electrodes are seen. Mild increased markings at the left lung base with residual blunting of the left costophrenic angle. This is suggestive of mild scarring. There is no demonstrated pleural abnormality. 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 Mild cardiomegaly. A left-sided dual-chamber pacemaker is seen. Normal mediastinum and jostin. Normal visualized pulmonary arteries. Normal visualized aortic arch and descending thoracic aorta. Normal visualized thoracic spine. Normal visualized ribs, clavicles, and shoulders. There is no demonstrated abnormality of the visualized soft tissue structures of the upper abdomen. RAD/Chest 1 View (Portable) IMPRESSION: Mild stable increased linear markings at the left lung base with blunting of the left costophrenic angle suggestive of scarring. Electronically Signed: Royer Pineda MD at 14:22 EST ,
[2022-04-10 15:08] LABS: Bacteria 0 SEEN /hpf (None Seen); Mucous, Urine 0 SEEN /hpf (<or=2+); Squamous Epithelial Cells - UA 0 SEEN /hpf (0-5)
[2022-04-10 15:13] LABS: Color, Urine Yellow (Yellow); Glucose, Dipstick Normal (Normal); Ketone-Dipstick Negative (Negative); Leukocyte Esterase-Dipstick 100 /ul (Negative); Nitrite-Dipstick Negative (Negative); Occult Blood-Urine 250 /ul (Negative); Protein-Dipstick 100 mg/dl (Negative); Specific Gravity, Urine 1.015 (1.002-1.030); Urine Bilirubin Dipstick Negative (Negative); Urine Clarity Sl. Cloudy (Clear); Urine Urobilinogen Normal (Normal)
--- NOTE | 2022-04-10 15:37 | HP.PCM.HOS_ITS ---
HPI - General General Date of Admission: 04/10/22 Date of Service: 04/10/22 Chief Complaint: weakness, mechanical fall HPI Narrative SHANTELL RIVERA, is a 86 M with a PMH as outlined who presents via the ED on 04/10/2022 with a complaint of weakness and mechanical fall. He was in an upright position and urinating when he fell. He hit his head on the initial fall, but didnt lose any consciousness. He denied any chest pain, dizziness, lightheadedness, palpitations, nausea, vomiting or diarrhea. Review of systems is otherwise negative. Vitals were BP of 122/85, OK of 87 and RR of 23, temp of 98.1F and he was saturating at 100% on room air. CBC showed Hb of 11.1 and platelets of 165 as well as platelets of 4.8. Chemistry showed sodium of 141, potassium of 3.4 and Cr of 1.54. Initial troponin was 14 and urinalysis showed leucocyte esterase of 100. urine bacteria and wbc pending. It turns out that patient lives alone in poor housing conditions. CXR showed mild stable increased linear markings at the left lung base with blunting at the left costophrenic angle suggestive of scarring. CT of the brain showed chronic involutional changes. He is being admitted to be managed for debility due to mechanical fall. 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 Non-healing non-surgical wound Old myocardial infarction Partial bowel obstruction Peripheral vascular disease Presence of combination internal cardiac defibrillator (ICD) and pacemaker Presence of stent in coronary artery (~02/21/03) Pure hypercholesterolemia Shortness of breath on exertion Thyroid disease Thyroid dysfunction Traumatic ecchymosis of left lower leg Wears dentures Wears glasses Home Medications omeprazole 20 mg capsule,delayed release 20 mg PO DAILY GERD 02/19/15 [History Last Taken 04/09/22] tamsulosin 0.4 mg capsule 0.4 mg PO QHS prostate 07/29/17 [History Last Taken 04/09/22] nitroglycerin 0.4 mg sublingual tablet 0.4 mg sublingual Q5M PRN CHEST PAIN #25 tabs 04/23/20 [Rx Last Taken 04/09/22] levothyroxine 25 mcg tablet 25 mcg PO DAILY THYROID 07/10/20 [History Last Taken 04/09/22] metoprolol tartrate 25 mg tablet 12.5 mg PO BID bp 03/04/22 [History Last Taken 04/09/22] midodrine 5 mg tablet 5 mg PO BID bp #60 tabs 04/01/22 [Rx Last Taken 04/09/22] ciprofloxacin HCl 500 mg tablet (Cipro) 500 mg PO BID #14 tabs 04/03/22 [Rx Last Taken 04/09/22] potassium chloride 20 mEq tablet,extended release 20 meq PO DAILY #30 tabs 04/08/22 [Rx Last Taken 04/09/22] acetaminophen 650 mg tablet,extended release 1,300 mg PO Q8H 04/10/22 [History Last Taken 04/09/22] furosemide 40 mg tablet 40 mg PO DAILY fluid 04/10/22 [History Last Taken 04/09/22] oxycodone-acetaminophen 5 mg-325 mg tablet 1 tab PO Q6H PRN Pain 04/10/22 [History Last Taken 04/09/22] rosuvastatin 40 mg tablet 40 mg PO DAILY cholesterol 04/10/22 [History Last Taken 04/09/22] Allergy/AdvReac Type Severity Reaction Status Date / Time No Known Allergies Allergy Verified 04/06/22 12:52 Family History Father Lung cancer CVA (cerebral vascular accident) Brother Sudden cardiac Surgical History Eyelid retraction unspecified eye, unspecified lid H/O hernia repair H/O myringoplasty History of cardiac catheterization History of coronary artery stent placement History of two vessel coronary artery bypass graft (~1997) Hx of CABG Hx of cholecystectomy Presence of coronary angioplasty implant and graft (~02/21/03) ureteral stent Social History household members: none Smoking Status: Former smoker how long ago did patient quit smokin years alcohol intake: never substance use type: does not use caffeine: No ROS Constitutional Constitutional: Reports chills, fatigue, malaise and weakness; Denies anorexia, change in weight or fever(s) Eyes Eyes: Denies change in vision ENT HEENT: Denies dysphagia, headache(s) or sore throat Cardiovascular Cardiovascular: Denies chest pain, dyspnea on exertion, edema, lightheadedness, orthopnea, palpitations, rapid heart rate or syncope Respiratory/Chest Respiratory/Chest: Denies cough, dyspnea, shortness of breath at rest or shortness of breath with exertion Gastrointestinal Gastrointestinal: Denies abdominal pain, coffee ground emesis, diarrhea, nausea or vomiting Genitourinary Genitourinary: Denies burning urination, dysuria or urinary urgency Musculoskeletal Musculoskeletal: Reports arthralgias; Denies back pain, joint pain, myalgias or neck pain Neurologic Neurologic: Denies confusion, dizziness, focal weakness, headache(s), numbness, seizures, syncope or tingling Psychiatric Psychiatric: Denies anxiety or depression Endocrine Endocrinology: Denies change in body appearance Hematologic/Lymphatic Hematologic/Lymphatic: Denies anemia Vital Signs Vital Signs Vital Signs: 04/10/22 12:10 04/10/22 12:14 Temperature 98.1 F Temperature Source Temporal Pulse Rate 87 Respiratory Rate 23 H Respiratory Effort Normal Respiratory Depth Normal Blood Pressure 122/85 H Blood Pressure Mean 97 Pulse Ox 100 Oxygen Delivery Method Room Air Weight Weight: 129 lb 6.581 oz Body Mass Index (BMI) 21.5 Physical Exam Const alert, oriented x3 and no apparent distress General Appearance: cooperative HEENT normocephalic, head/scalp atraumatic, hearing grossly normal bilaterally and moist oral mucous membranes Mouth: oral and palatal mucosa normal Eyes PERRL, EOMs intact bilaterally and conjunctivae normal Neck no lymphadenopathy, supple and no JVD Resp normal respiratory effort, no retractions, no use of accessory muscles and clear to auscultation bilaterally Cardio regular rate, regular rhythm, S1 normal heart sound, S2 normal heart sound and no murmurs GI normal to inspection, nondistended, normoactive bowel sounds, soft to palpation, non-tender and non-distended Extremity normal to inspection, full ROM and no clubbing, cyanosis or edema Neuro oriented x3, CN's II-XII intact bilaterally, moves all extremities and no focal motor deficits Sensorium / Orientation: awake and alert Motor Exam: strength 5/5 throughout Psych affect normal Results Lab / Micro Data Result Diagrams: 04/11/22 06:55 04/11/22 06:55 Labs: Laboratory Results - last 24 hr 04/10/22 13:05: WBC 4.8, RBC 3.82 L, Hgb 11.1 L, Hct 34.9 L, MCV 91.4, MCH 29.1, MCHC 31.8 L, RDW Std Deviation 45.8 H, RDW Coeff of Del 13.9, Plt Count 165, MPV 10.6, Immature Gran % (Auto) 0.200, Neut % (Auto) 67.4, Lymph % (Auto) 20.5, [place] % (Auto) 10.3 H, Eos % (Auto) 1.0, Baso % (Auto) 0.6, Absolute Neuts (auto) 3.2, Absolute Lymphs (auto) 0.98, Nucleated RBC % 0 04/10/22 13:05: Sodium 141, Potassium 3.4 L, Chloride 105, Carbon Dioxide 29.0, Anion Gap 7, BUN 18, Creatinine 1.54 H, Estim Creat Clear Calc 29.12, Est GFR (MDRD) Af Amer 55 L, Est GFR (MDRD) Non-Af 46 L, BUN/Creatinine Ratio 11.7, Glucose 104, Calcium 9.6, Troponin I High Sens 14 04/10/22 15:00: Urine Color Yellow, Urine Clarity Sl. Cloudy, Urine pH 8.0, Ur Specific [place] 1.015, Urine Protein 100 H, Urine Glucose (UA) Normal, Urine Ketones Negative, Urine Occult Blood 250 H, Urine Nitrite Negative, Urine Bi lirubin Negative, Urine Urobilinogen Normal, Ur Leukocyte Esterase 100 H Radiology Impression Brain CT 04/10/22 13:09 IMPRESSION: Chronic involutional changes of the brain. Electronically Signed: Royer Pineda MD at 14:20 EST , Chest X-Ray 04/10/22 13:50 IMPRESSION: Mild stable increased linear markings at the left lung base with blunting of the left costophrenic angle suggestive of scarring. Electronically Signed: Royer Pineda MD at 14:22 EST , Assessment & Plan Assessment/Plan (1) Falls: (2) Weakness: (3) Adult failure to thrive: (4) Hypokalemia: PLAN: Plan #Debililty due to mechanical fall * admit to med surg * hydrate gently with IVF * PT/OT consult * fall precuations * check orthostatics * #Hypokalemia: potassium is 3.4. Will replace and trend #[place]: Cr is 1.54; baseline is <1. Will replace and trend #Atrial fibrillation * on metoprolol. * has a pacemaker in place. * Pacemaker was interrogated and showed HR elevated in the 170s-190s. * will consult cardiology as this could be contributing to the mechanical falls. * #Sick sinus syndrome * has pacemaker in situ. * pacemaker interrogated and showed HR in the 170s and 190s several times in the last few days * consult cardiology to evaluate patient * #Hypothyroidism: on synthroid #BPH: on flomax #CAD s/p CABG: stable DVT prophylaxis: SCDs Code status: full code * Patient counseled extensively about different types of CODE STATUS including full code, DNR CCA and DNR CCA. Patient elects to be full code. * Total [id number] time 17 minutes. Charges/Coding Visit Charges OBSV E&M: 52450 Initial observation care L3 Procedures Hospitalists Procedures: 29769 Advncd Care Plan 30 Min
[2022-04-10 15:52] LABS: Red Blood Cells-Urine 10-25 SEEN /hpf (0-5); White Blood Cells 0-5 SEEN /hpf (0-5)
[2022-04-10 16:47] VITALS: BP 122/85; PULSE 87; RESP 23; TEMP 36.7; O2SAT 100
[2022-04-10 16:52] VITALS: BMI 20.4
[2022-04-10 16:57] VITALS: BP 149/99; PULSE 75; RESP 18; TEMP 36.7; O2SAT 98
--- NOTE | 2022-04-10 16:59 | CM.ED ---
Social Work - ED Received handoff report from GLOVE PAIRER Stefanie Stoll reporting that patient is in the ED after a fall at home. Stefanie reports went to patient's home for a visit and when no answer at door, called the patient to find out patient in the ED. Met with patient in room, introducing to self and role. Patient reports fell at home, and confirms belief that it may be time to go to a nursing facility. Patient reports wants to be able to drive again, but knows cannot do so right now. This marketing copywriter aware of concerns regarding home conditions, including possibility of no running water and that patient will at times urinate in buckets. Noted in record that APS has been involved with this patient. Addressed running water, which patient states is working fine. Patient reported to have 2 full bathrooms, though from chart review it is indicated patient lives in a mobile home on [id number]'s property. Addressed access to food. Patient reports to be dependent on meals on wheels and neighbors who bring food. Patient reports has not been eating enough. Reports [facility] helps set up medications. Emotional support offered to patient. Addressed [facility] and Living Will as noted documents scanned in from 2018. Jose Houston is listed. Patient reports this person is . Any Houston, who is listed on demographic sheet is actually a [id number], not a blood relative. Patient reports to have a daughter who has not seen in years, and does not know where the daughter lives. Reports a divorce ruined that relationship with the daughter. Patient reports only blood relative that has any contact with is a nephew. Patient got out his wallet and provided this marketing copywriter name and number for nephew Jah Houston ([phone]). Added the nephew to demographic information. This marketing copywriter suggested patient consider completing new advanced directives to reflect current wishes for assistance with decision making when/if the time comes. Patient reports will consider. Educated patient that social work will follow up with a list for SNF's in the patient's geographic region and contracted with patient's insurance. Patient agreed. PLAN: Social work to follow up with patient for SNF list. Await PT/OT evaluations for determination of need for skilled therapy at time of discharge. Handoff to Care Management team for acute medical floor completed. -NADEGE Thompson MSW
[2022-04-10] MEDS: Potassium Chloride Oral Tablet 20 MEQ 40 MEQ PO (17:31)
[2022-04-10 22:16] VITALS: BP 135/51; PULSE 82; RESP 18; TEMP 36.6; O2SAT 98
[2022-04-10] MEDS: 0.9% Saline Lock 10 ML Syringe IV (22:57)
[2022-04-11] VITALS (7 sets, daily range): BP systolic 64–159; BP diastolic 49–85; PULSE 72–115; RESP 16–18; TEMP 36.4–36.8; O2SAT 97–100
[2022-04-11 07:18] LABS: Absolute Lymphocyte Count 1.01 X10^3/uL (0.83-4.51); Absolute Neutrophil Count 2.7 X10^3/uL (2.0-7.7); Basophil# 0.03 X10^3/uL; Basophil% 0.7 % (0-1); Eosinophil# 0.18 X10^3/uL; Hematocrit 33.9 % (40-54); Hemoglobin 10.9 g/dL (13.0-16.5); Lymphocyte # 1.01 X10^3/ul (0.83-4.51); Lymphocyte % 22.3 % (19-41); Mean Corp Hgb Conc 32.2 g/dL (32-36); Mean Corpuscular Hgb 29.4 pg (27.0-32.0); Mean Corpuscular Volume 91.4 fL (80-94); Monocyte# 0.57 X10^3/uL; Monocyte% 12.6 % (0-10); NRBC Flagged by Analyzer 0 % (0-5); Neutrophil # 2.73 X10^3/uL (2.7-7.7); Neutrophil % 60.2 % (47-70); Platelet Count 139 K/mm3 (150-450); RBC Distribution Width CV 13.9 % (11.6-14.6); RBC Distribution Width SD 46.4 fl (35.1-43.9); Red Blood Count 3.71 M/mm3 (4.6-6.2); White Blood Count 4.5 K/mm3 (4.4-11.0)
[2022-04-11 07:47] LABS: Anion Gap 6 (5-15); BUN 16 mg/dL (7-18); BUN/Creat Ratio 14.8 RATIO (10-20); Calcium,Total 9.4 mg/dL (8.5-10.1); Chloride 110 mmol/L (98-107); Creatinine, Serum 1.08 mg/dL (0.70-1.30); EST Glomerular Filtration Rate 69 mL/min (>60); Est Glom Filt Rate - Afr Amer 83 mL/min (>60); Estimated Creatinine Clearance 41.73 ml/min; Glucose 100 mg/dL (74-106); Potassium 3.8 mmol/L (3.5-5.1); Sodium Level 141 mmol/L (136-145)
--- NOTE | 2022-04-11 11:09 | PN.HOSP_ITS ---
Subjective Subjective Patient seen and examined. He had no active complaints and felt well. Review of systems is otherwise negative. Objective Data Objective Data Vital Signs: Vital Signs Temp Pulse Resp BP Pulse Ox O2 Del Method 97.7 F L 100 16 159/84 H 97 Room Air 04/11/22 08:10 04/11/22 08:10 04/11/22 08:10 04/11/22 08:10 04/11/22 08:10 04/11/22 08:10 Oxygen Delivery Method Room Air Weight: 130 lb 1.164 oz Body Mass Index (BMI) 20.4 Intake & Output: Intake and Output for Last 24 Hours 04/09/22 04/10/22 04/11/22 23:59 23:59 23:59 Intake Total 1515 / 1515 Output Total 670 / 670 Balance 1515 / 1245 -670 / -670 Lab / Micro Data Result Diagrams: 04/11/22 06:55 04/11/22 06:55 Labs: Laboratory Results - last 24 hr 04/10/22 13:05: WBC 4.8, RBC 3.82 L, Hgb 11.1 L, Hct 34.9 L, MCV 91.4, MCH 29.1, MCHC 31.8 L, RDW Std Deviation 45.8 H, RDW Coeff of Del 13.9, Plt Count 165, MPV 10.6, Immature Gran % (Auto) 0.200, Neut % (Auto) 67.4, Lymph % (Auto) 20.5, [place] % (Auto) 10.3 H, Eos % (Auto) 1.0, Baso % (Auto) 0.6, Absolute Neuts (auto) 3.2, Absolute Lymphs (auto) 0.98, Nucleated RBC % 0 04/10/22 13:05: Sodium 141, Potassium 3.4 L, Chloride 105, Carbon Dioxide 29.0, Anion Gap 7, BUN 18, Creatinine 1.54 H, Estim Creat Clear Calc 29.12, Est GFR (MDRD) Af Amer 55 L, Est GFR (MDRD) Non-Af 46 L, BUN/Creatinine Ratio 11.7, Glucose 104, Calcium 9.6, Troponin I High Sens 14 04/10/22 15:00: Urine Color Yellow, Urine Clarity Sl. Cloudy, Urine pH 8.0, Ur Specific [place] 1.015, Urine Protein 100 H, Urine Glucose (UA) Normal, Urine Ketones Negative, Urine Occult Blood 250 H, Urine Nitrite Negative, Urine Bilirubin Negative, Urine Urobilinogen Normal, Ur Leukocyte Esterase 100 H, Urine RBC 10-25 SEEN, Urine WBC 0-5 SEEN, Ur Squamous Epith Cells 0 SEEN, Urine Bacteria 0 SEEN, Urine Mucus 0 SEEN 04/11/22 06:55: WBC 4.5, RBC 3.71 L, Hgb 10.9 L, Hct 33.9 L, MCV 91.4, MCH 29.4, MCHC 32.2, RDW Std Deviation 46.4 H, RDW Coeff of Del 13.9, Plt Count 139 L, MPV 10.0, Immature Gran % (Auto) 0.200, Neut % (Auto) 60.2, Lymph % (Auto) 22.3, [place] % (Auto) 12.6 H, Eos % (Auto) 4.0, Baso % (Auto) 0.7, Absolute Neuts (auto) 2.7, Absolute Lymphs (auto) 1.01, Nucleated RBC % 0 04/11/22 06:55: Sodium 141, Potassium 3.8, Chloride 110 H, Carbon Dioxide 25.0, Anion Gap 6, BUN 16, Creatinine 1.08, Estim Creat Clear Calc 41.73, Est GFR (MDRD) Af Amer 83, Est GFR (MDRD) Non-Af 69, BUN/Creatinine Ratio 14.8, Glucose 100, Calcium 9.4 Radiography Diagnostic Testing: Radiology Impression Brain CT 04/10/22 13:09 IMPRESSION: Chronic involutional changes of the brain. Electronically Signed: Royer Pineda MD at 14:20 EST , Chest X-Ray 04/10/22 13:50 IMPRESSION: Mild stable increased linear markings at the left lung base with blunting of the left costophrenic angle suggestive of scarring. Electronically Signed: Royer Pineda MD at 14:22 EST , Physical Exam Const alert, oriented x3 and no apparent distress General Appearance: cooperative HEENT normocephalic, head/scalp atraumatic, hearing grossly normal bilaterally and moist oral mucous membranes Head and Scalp: normocephalic Mouth: oral and palatal mucosa normal Eyes PERRL, EOMs intact bilaterally and conjunctivae normal Neck no lymphadenopathy, supple and no JVD Resp normal respiratory effort, no retractions, no use of accessory muscles and clear to auscultation bilaterally Cardio regular rate, regular rhythm, S1 normal heart sound, S2 normal heart sound and no murmurs GI normal to inspection, nondistended, normoactive bowel sounds, soft to palpation, non-tender and non-distended Extremity normal to inspection, full ROM and no clubbing, cyanosis or edema Neuro oriented x3, CN's II-XII intact bilaterally, moves all extremities and no focal motor deficits Sensorium / Orientation: awake and alert Motor Exam: strength 5/5 throughout Psych affect normal Assessment & Plan Assessment/Plan (1) Falls: (2) Weakness: (3) Adult failure to thrive: (4) Hypokalemia: PLAN: Plan #Debililty due to mechanical fall * feeling better today * PT/OT consult * fall precautions * check orthostatics * #Hypokalemia: potassium is 3.8. Will replace and trend #EVERETT: Cr is 1.08. Has trended downwards. #Atrial fibrillation * on metoprolol. * has a pacemaker in place. * Pacemaker was interrogated and showed HR elevated in the 170s-190s. * cardiology on board. * #Sick sinus syndrome * has pacemaker in situ. * pacemaker interrogated and showed HR in the 170s and 190s several times in the last few days. * cardiology consulted * #Hypothyroidism: on synthroid #BPH: on flomax #CAD s/p CABG: stable DVT prophylaxis: SCDs Code status: full code * * DIsposition: awaiting placement Charges/Coding Visit Charges Inpatient E&M: 81708 Subs Hosp L2
[2022-04-11] MEDS: 0.9% Normal Saline 1,000 ML 125 ML IV ×2 (11:52→20:06)
[2022-04-11] MEDS: 0.9% Saline Lock 10 ML Syringe IV (11:53)
--- NOTE | 2022-04-11 14:50 | CASEMGMT ---
Addendum entered by Sirisha Purcell 04/11/22 17:24: SUNG ALMARAZ and SUNG Quiñones met with patient to discuss AD as patient informed staff he was interested in completing the paperwork. SW inquired if patient was aware of demographic information needed for the individuals he would name, patient reported he did not have that information. Patient explained he would contact the individuals and attempt to get their addresses. AD paperwork left with patient for his review. LISBETH Angulo Addendum entered by Sirisha Purcell 04/11/22 15:31: SUNG Referral for placement sent to [facility] via [facility] for review per patient's request. LISBETH Angulo Original Note: SUNG Note SUNG and SUNG Quiñones met with patient and introduced selves as well as role with [facility] as social workers. SUNG provided patient with a list of in network SNF options in [facility] per patient request. Patient is in agreement with SNF placement and selected [facility] as his first choice and [facility] as his second choice. LISBETH Angulo
--- NOTE | 2022-04-11 15:42 | PCM.PN.CARD ---
Subjective Subjective Patient seen and today along with the nursing staff Had lightheadedness and dizziness this was happened today when he was sitting in a chair and was taken by the nursing staff to the bed And noted he had drop in the blood pressure from systolic 1 15-64 with clear evidence of orthostatic hypotension blood pressure 64/49 he does not have any symptoms of chest pain. Objective Data Vital Signs: Vital Signs Temp Pulse Resp BP Pulse Ox O2 Del Method 97.7 F L 93 16 143/73 H 100 Room Air 04/11/22 14:21 04/11/22 14:21 04/11/22 14:21 04/11/22 14:21 04/11/22 14:21 04/11/22 14:21 Oxygen Delivery Method Room Air Weight: 130 lb 1.164 oz Body Mass Index (BMI) 20.4 Intake & Output: Intake and Output for Last 24 Hours 04/09/22 04/10/22 04/11/22 23:59 23:59 23:59 Intake Total 1515 / 1515 350 / 350 Output Total 670 / 670 Balance 1515 / 1245 -320 / -320 Lab / Micro Data Result Diagrams: 04/11/22 06:55 04/11/22 06:55 Labs: Laboratory Results - last 24 hr 04/10/22 15:00: Urine RBC 10-25 SEEN, Urine WBC 0-5 SEEN, Ur Squamous Epith Cells 0 SEEN, Urine Bacteria 0 SEEN, Urine Mucus 0 SEEN 04/11/22 06:55: WBC 4.5, RBC 3.71 L, Hgb 10.9 L, Hct 33.9 L, MCV 91.4, MCH 29.4, MCHC 32.2, RDW Std Deviation 46.4 H, RDW Coeff of Del 13.9, Plt Count 139 L, MPV 10.0, Immature Gran % (Auto) 0.200, Neut % (Auto) 60.2, Lymph % (Auto) 22.3, [place] % (Auto) 12.6 H, Eos % (Auto) 4.0, Baso % (Auto) 0.7, Absolute Neuts (auto) 2.7, Absolute Lymphs (auto) 1.01, Nucleated RBC % 0 04/11/22 06:55: Sodium 141, Potassium 3.8, Chloride 110 H, Carbon Dioxide 25.0, Anion Gap 6, BUN 16, Creatinine 1.08, Estim Creat Clear Calc 41.73, Est GFR (MDRD) Af Amer 83, Est GFR (MDRD) Non-Af 69, BUN/Creatinine Ratio 14.8, Glucose 100, Calcium 9.4 Cardiology Labs/Tests 04/10/22 15:00: Urine RBC 10-25 SEEN, Urine WBC 0-5 SEEN 04/11/22 06:55: WBC 4.5, RBC 3.71 L, Hgb 10.9 L, Hct 33.9 L, MCV 91.4, MCH 29.4, MCHC 32.2, Plt Count 139 L, MPV 10.0, Immature Gran % (Auto) 0.200, Neut % (Auto) 60.2, Lymph % (Auto) 22.3, [place] % (Auto) 12.6 H, Eos % (Auto) 4.0, Baso % (Auto) 0.7, Absolute Neuts (auto) 2.7, Nucleated RBC % 0 04/11/22 06:55: Sodium 141, Potassium 3.8, Chloride 110 H, Carbon Dioxide 25.0, Anion Gap 6, BUN 16, Creatinine 1.08, Est GFR (MDRD) Af Amer 83, Est GFR (MDRD) Non-Af 69, BUN/Creatinine Ratio 14.8, Glucose 100, Calcium 9.4 Rhythm: EKG: ECHO: Stress Test: Cardiac Cath: PCI: CT Surgery: Holter monitor: EPS: PPM: CXR: Chest CT Scan: Physical Exam Cardio Cardio Narrative: Cardiac exam S1-S2 is irregular Chest exam clear to auscultation bilateral. Assessment & Plan Assessment/Plan (1) Falls: (2) Atrial fibrillation: (3) Sick sinus syndrome: (4) Orthostatic hypotension: PLAN: Plan Elderly 86-year-old patient With remote history of CAD and CABG which was done at [facility] A was admitted following a fall Patient had underlying sick sinus syndrome s/p pacemaker and a history of paroxysmal A. fib. He had clinical evidence of orthostatic hypotension Last cardiac catheterization was in 2018 where he had left main was normal and had a subtotal diagonal branch at that time and he had arthritic ROMERO to LAD with a patent LAD mid stent Cardiac care plan recommendations; 1. Orthostatic hypotension with blood pressure dropped from 115/85 mmHg -60 4/49 mmHg and patient was symptomatic Increase the dose of methadone to 5 mg 3 times daily Patient had history of fall x2 Pacemaker device has been interrogated with normal function He has paroxysmal atrial fibrillation and is a high risk patient for anticoagulation at this point due to risk of fall His primary supervisor assembly stock is Dr. Jeffers and would recommend to follow-up
--- NOTE | 2022-04-11 15:45 | CASEMGMT ---
MARIA LUISA GENAO in to complete KIM form at this time.? MARIA LUISA GENAO explained KIM for to patient, patient voiced understanding.? Patient signed KIM Form and filed in chart.? Patient provided with copy of signed KMI form.? Patient had no further questions or concerns.??Marlon Daugherty RN CM
[2022-04-11] MEDS: Ensure Plus High Protein 120 ML LIQUID PO (16:44)
[2022-04-11] MEDS: Midodrine HCl 5 MG Tablet PO (16:44)
[2022-04-11] MEDS: Atorvastatin Calcium 80 MG Tablet PO (21:17)
[2022-04-12] VITALS (7 sets, daily range): BP systolic 126–149; BP diastolic 61–90; PULSE 57–129; RESP 16–20; TEMP 36.6–36.9; O2SAT 94–99
[2022-04-12] MEDS: Glycerin/Hypromellose/PEG400 15 ml Bottle 2 DRP RIGHT EYE ×2 (03:28→22:39)
[2022-04-12] MEDS: Senna/Docusate Sodium 1 Tablet 2 TABLET PO ×2 (03:28→11:17)
[2022-04-12] MEDS: Levothyroxine 25 MCG TABLET PO (03:28)
[2022-04-12] MEDS: 0.9% Saline Lock 10 ML Syringe IV ×3 (06:22→23:18)
[2022-04-12 07:57] LABS: Absolute Lymphocyte Count 1.14 X10^3/uL (0.83-4.51); Absolute Neutrophil Count 3.3 X10^3/uL (2.0-7.7); Basophil# 0.02 X10^3/uL; Basophil% 0.4 % (0-1); Eosinophil# 0.15 X10^3/uL; Eosinophils% 2.9 % (0-5); Hematocrit 33.1 % (40-54); Hemoglobin 10.6 g/dL (13.0-16.5); Lymphocyte # 1.14 X10^3/ul (0.83-4.51); Lymphocyte % 22.1 % (19-41); Mean Corpuscular Hgb 29.4 pg (27.0-32.0); Mean Corpuscular Volume 91.9 fL (80-94); Mean Platelet Vol. 10.1 fl (6.2-12.0); Monocyte% 9.7 % (0-10); NRBC Flagged by Analyzer 0 % (0-5); Neutrophil # 3.33 X10^3/uL (2.7-7.7); Neutrophil % 64.7 % (47-70); Platelet Count 146 K/mm3 (150-450); RBC Distribution Width CV 14.2 % (11.6-14.6); RBC Distribution Width SD 47.8 fl (35.1-43.9); White Blood Count 5.2 K/mm3 (4.4-11.0)
[2022-04-12] MEDS: Potassium Chloride Oral Tablet 20 MEQ PO (08:05)
[2022-04-12] MEDS: Pantoprazole Sodium 20 MG Tablet PO (08:06)
[2022-04-12] MEDS: Midodrine HCl 5 MG Tablet PO ×3 (08:06→17:17)
[2022-04-12] MEDS: Ensure Plus High Protein 120 ML LIQUID PO ×3 (08:11→17:17)
[2022-04-12 08:14] LABS: Anion Gap 4 (5-15); BUN 15 mg/dL (7-18); BUN/Creat Ratio 17.3 RATIO (10-20); Calcium,Total 9.2 mg/dL (8.5-10.1); Chloride 115 mmol/L (98-107); Creatinine, Serum 0.87 mg/dL (0.70-1.30); EST Glomerular Filtration Rate 89 mL/min (>60); Est Glom Filt Rate - Afr Amer 108 mL/min (>60); Estimated Creatinine Clearance 52.16 ml/min; Glucose 107 mg/dL (74-106); Potassium 3.9 mmol/L (3.5-5.1); Sodium Level 142 mmol/L (136-145)
--- NOTE | 2022-04-12 13:58 | PN.CARD_ITS ---
Subjective Subjective Doing well today, seen and evaluated at bedside with the nursing staff Very mild symptoms of dizziness Objective Data Vital Signs: Vital Signs Temp Pulse Resp BP Pulse Ox O2 Del Method 98 F 68 16 138/73 H 96 Room Air 04/12/22 11:35 04/12/22 11:35 04/12/22 11:35 04/12/22 11:35 04/12/22 11:35 04/12/22 11:35 Oxygen Delivery Method Room Air Weight: 130 lb 15.273 oz Body Mass Index (BMI) 20.4 Intake & Output: Intake and Output for Last 24 Hours 04/10/22 04/11/22 04/12/22 23:59 23:59 23:59 Intake Total 1515 / 1515 1700 / 1700 1400 / 1400 Output Total 1070 / 1270 775 / 775 Balance 1515 / 1245 630 / 430 625 / 625 Lab / Micro Data Result Diagrams: 04/12/22 07:06 04/12/22 07:06 Labs: Laboratory Results - last 24 hr 04/12/22 07:06: WBC 5.2, RBC 3.60 L, Hgb 10.6 L, Hct 33.1 L, MCV 91.9, MCH 29.4, MCHC 32.0, RDW Std Deviation 47.8 H, RDW Coeff of Del 14.2, Plt Count 146 L, MPV 10.1, Immature Gran % (Auto) 0.200, Neut % (Auto) 64.7, Lymph % (Auto) 22.1, [place] % (Auto) 9.7, Eos % (Auto) 2.9, Baso % (Auto) 0.4, Absolute Neuts (auto) 3.3, Absolute Lymphs (auto) 1.14, Nucleated RBC % 0 04/12/22 07:06: Sodium 142, Potassium 3.9, Chloride 115 H, Carbon Dioxide 23.0, Anion Gap 4 L, BUN 15, Creatinine 0.87, Estim Creat Clear Calc 52.16, Est GFR (MDRD) Af Amer 108, Est GFR (MDRD) Non-Af 89, BUN/Creatinine Ratio 17.3, Glucose 107 H, Calcium 9.2 Cardiology Labs/Tests 04/12/22 07:06: WBC 5.2, RBC 3.60 L, Hgb 10.6 L, Hct 33.1 L, MCV 91.9, MCH 29.4, MCHC 32.0, Plt Count 146 L, MPV 10.1, Immature Gran % (Auto) 0.200, Neut % (Auto) 64.7, Lymph % (Auto) 22.1, [place] % (Auto) 9.7, Eos % (Auto) 2.9, Baso % (Auto) 0.4, Absolute Neuts (auto) 3.3, Nucleated RBC % 0 04/12/22 07:06: Sodium 142, Potassium 3.9, Chloride 115 H, Carbon Dioxide 23.0, Anion Gap 4 L, BUN 15, Creatinine 0.87, Est GFR (MDRD) Af Amer 108, Est GFR (MDRD) Non-Af 89, BUN/Creatinine Ratio 17.3, Glucose 107 H, Calcium 9.2 Rhythm: EKG: ECHO: Stress Test: Cardiac Cath: PCI: CT Surgery: Holter monitor: EPS: PPM: CXR: Chest CT Scan: Physical Exam Cardio Cardio Narrative: Resting comfortably Significant improvement in symptoms of dizziness very mild dizziness reported today Cardiac examination S1-S2 is regular. No orthostatic hypotension systolic blood pressure on standing is 130 mmHg today Chest exam is clear to auscultation bilateral. Assessment & Plan Assessment/Plan (1) Adult failure to thrive: (2) Paroxysmal atrial fibrillation: (3) Orthostatic hypotension: (4) Presence of stent in coronary artery: (5) Pure hypercholesterolemia: (6) Cardiac pacemaker: PLAN: 86-year-old patient with extensive cardiac history and history of a fall, with generalized weakness and adult failure to thrive Patient also had chronic renal insufficiency stage III from cardiac stem History of CAD prior coronary artery bypass surgery and PCI and stent of the LAD Has orthostatic hypotension Dosage of methadone increased to 5 mg 3 times daily Today he is feeling much better with systolic blood pressure standing around 130 mmHg Cardiac care plan recommendations; 1. From cardiac standpoint we will continue current medical treatment High risk for anticoagulation due to recurrent fall with generalized weakness. To follow-up with the primary salesperson meats on discharge Dr. Jeffers
--- NOTE | 2022-04-12 14:35 | PN.HOSP_ITS ---
Subjective Subjective Patient seen and examined. He had no active complaints today and had an uneventful night. Review of systems is otherwise negative. He is awaiting placement. He has remained hemodynamically stable. Objective Data Objective Data Vital Signs: Vital Signs Temp Pulse Resp BP Pulse Ox O2 Del Method 98 F 68 16 138/73 H 96 Room Air 04/12/22 11:35 04/12/22 11:35 04/12/22 11:35 04/12/22 11:35 04/12/22 11:35 04/12/22 11:35 Oxygen Delivery Method Room Air Weight: 130 lb 15.273 oz Body Mass Index (BMI) 20.4 Intake & Output: Intake and Output for Last 24 Hours 04/10/22 04/11/22 04/12/22 23:59 23:59 23:59 Intake Total 1515 / 1515 1700 / 1700 1400 / 1400 Output Total 1070 / 1270 775 / 775 Balance 1515 / 1245 630 / 430 625 / 625 Medical Nutrition Assessment Dietitian: Malnutrition Criteria Met Start: 04/11/22 20:43 Freq: Status: Active Protocol: Document 04/11/22 15:44 [facility] (Rec: 04/11/22 20:44 [facility] [id number]) Nutrition Malnutrition Evidence of Malnutrition Exists Yes Malnutrition (moderate): Acute Illness/Injury Evidenced By Suboptimal Energy Intake ( Moderate),Weight Loss ( Moderate),Physical Changes ( Mild) Clinical Problem Acute Disease or Injury Related Malnutrition Etiology related to physiological changes causing decreased oral intakes Signs/Symptoms as evidenced by significant weight loss of 3.0% in 5 days, oral intakes less than 75% of estimated energy needs for at least 1 week and mild muscle and fat wasting per NFPA ( buccal, clavicle, restoration). Status Active Problem Recommendation Dietitian Recommendations/Changes Change diet to Regular - General to help increase oral intakes. Pt not interested in ONS use at this time. Will reassess oral intakes upon f/u and modify interventions as needed . Lab / Micro Data Result Diagrams: 04/12/22 07:06 04/12/22 07:06 Labs: Laboratory Results - last 24 hr 04/12/22 07:06: WBC 5.2, RBC 3.60 L, Hgb 10.6 L, Hct 33.1 L, MCV 91.9, MCH 29.4, MCHC 32.0, RDW Std Deviation 47.8 H, RDW Coeff of Del 14.2, Plt Count 146 L, MPV 10.1, Immature Gran % (Auto) 0.200, Neut % (Auto) 64.7, Lymph % (Auto) 22.1, [place] % (Auto) 9.7, Eos % (Auto) 2.9, Baso % (Auto) 0.4, Absolute Neuts (auto) 3.3, Absolute Lymphs (auto) 1.14, Nucleated RBC % 0 04/12/22 07:06: Sodium 142, Potassium 3.9, Chloride 115 H, Carbon Dioxide 23.0, Anion Gap 4 L, BUN 15, Creatinine 0.87, Estim Creat Clear Calc 52.16, Est GFR (MDRD) Af Amer 108, Est GFR (MDRD) Non-Af 89, BUN/Creatinine Ratio 17.3, Glucose 107 H, Calcium 9.2 Physical Exam Const alert, oriented x3 and no apparent distress General Appearance: cooperative HEENT normocephalic, head/scalp atraumatic, hearing grossly normal bilaterally and moist oral mucous membranes Head and Scalp: normocephalic Mouth: oral and palatal mucosa normal Eyes PERRL, EOMs intact bilaterally and conjunctivae normal Neck no lymphadenopathy, supple and no JVD Resp normal respiratory effort, no retractions, no use of accessory muscles and clear to auscultation bilaterally Cardio regular rate, regular rhythm, S1 normal heart sound, S2 normal heart sound and no murmurs GI normal to inspection, nondistended, normoactive bowel sounds, soft to palpation, non-tender and non-distended Extremity normal to inspection, full ROM and no clubbing, cyanosis or edema Neuro oriented x3, CN's II-XII intact bilaterally, moves all extremities and no focal motor deficits Sensorium / Orientation: awake and alert Motor Exam: strength 5/5 throughout Psych affect normal Assessment & Plan Assessment/Plan (1) Falls: (2) Weakness: (3) Adult failure to thrive: (4) Hypokalemia: PLAN: Plan #Debililty due to mechanical fall * PT/OT consult * fall precuations * check orthostatics * #Hypokalemia: resolved. K is 3.9 #EVERETT: resolved. #Orthostatic hypotension * Orthostatics were positive, and this is likely contributing to mechanical falls * hydrated with IVF, and orthostatics now negative. * cardiology on board * fall precautions * on midodrine, increaed to 5mg tid * #Atrial fibrillation * on metoprolol. * has a pacemaker in place. * Pacemaker was interrogated and showed HR elevated in the 170s-190s. * cardiology on board; orthostatics positive and tachycardia may have been due to positive orthostatics; orthostatic hypotension now resolved, and on midod rine * not on anticoagulation; deemed too high risk * #Sick sinus syndrome * has pacemaker in situ. * pacemaker interrogated and showed HR in the 170s and 190s several times in the last few days * cardiology on board. * #Hypothyroidism: on synthroid #BPH: on flomax #CAD s/p CABG: stable DVT prophylaxis: SCDs Code status: full code * * Disposition:awaiting placement Charges/Coding Visit Charges Inpatient E&M: 95343 Subs Hosp L2
[2022-04-12] MEDS: Atorvastatin Calcium 80 MG Tablet PO (22:38)
[2022-04-13 04:02] VITALS: BP 140/84; PULSE 104; RESP 18; TEMP 37.1; O2SAT 95
[2022-04-13] MEDS: Levothyroxine 25 MCG TABLET PO (04:09)
[2022-04-13 05:53] LABS: Absolute Lymphocyte Count 1.12 X10^3/uL (0.83-4.51); Absolute Neutrophil Count 4.2 X10^3/uL (2.0-7.7); Basophil# 0.04 X10^3/uL; Basophil% 0.6 % (0-1); Eosinophil# 0.17 X10^3/uL; Eosinophils% 2.7 % (0-5); Hematocrit 34.1 % (40-54); Hemoglobin 11.1 g/dL (13.0-16.5); Lymphocyte # 1.12 X10^3/ul (0.83-4.51); Mean Corp Hgb Conc 32.6 g/dL (32-36); Mean Corpuscular Hgb 29.8 pg (27.0-32.0); Mean Corpuscular Volume 91.7 fL (80-94); Monocyte# 0.66 X10^3/uL; Monocyte% 10.6 % (0-10); NRBC Flagged by Analyzer 0 % (0-5); Neutrophil # 4.19 X10^3/uL (2.7-7.7); Neutrophil % 67.6 % (47-70); Platelet Count 157 K/mm3 (150-450); RBC Distribution Width CV 14.4 % (11.6-14.6); Red Blood Count 3.72 M/mm3 (4.6-6.2); White Blood Count 6.2 K/mm3 (4.4-11.0)
[2022-04-13 06:20] LABS: Anion Gap 5 (5-15); BUN 15 mg/dL (7-18); BUN/Creat Ratio 16.9 RATIO (10-20); Calcium,Total 9.3 mg/dL (8.5-10.1); Chloride 113 mmol/L (98-107); Creatinine, Serum 0.89 mg/dL (0.70-1.30); EST Glomerular Filtration Rate 87 mL/min (>60); Est Glom Filt Rate - Afr Amer 105 mL/min (>60); Estimated Creatinine Clearance 51.24 ml/min; Glucose 102 mg/dL (74-106); Potassium 4.1 mmol/L (3.5-5.1); Sodium Level 141 mmol/L (136-145)
--- NOTE | 2022-04-13 09:23 | PCM.PN.CARD ---
Subjective Subjective The patient appears to be awake and alert this morning. He has been up in his bedside chair. He denies any ongoing chest discomfort, difficulty breathing, or sensation of his underlying cardiac rate/rhythm related issues. He denies any ongoing lightheadedness, dizziness, near-syncope, or syncope. Objective Data Vital Signs: Vital Signs Temp Pulse Resp BP Pulse Ox O2 Del Method 98.8 F 104 H 18 140/84 H 95 Room Air 04/13/22 04:02 04/13/22 04:02 04/13/22 04:02 04/13/22 04:02 04/13/22 04:02 04/13/22 04:02 Oxygen Delivery Method Room Air Weight: 131 lb 9.855 oz Body Mass Index (BMI) 20.4 Intake & Output: Intake and Output for Last 24 Hours 04/11/22 04/12/22 04/13/22 23:59 23:59 23:59 Intake Total 1700 / 1700 2050 / 2050 400 / 400 Output Total 1070 / 1270 925 / 925 375 / 375 Balance 630 / 430 1125 / 1125 25 / 25 Lab / Micro Data Result Diagrams: 04/13/22 05:15 04/13/22 05:15 Labs: Laboratory Results - last 24 hr 04/13/22 05:15: WBC 6.2, RBC 3.72 L, Hgb 11.1 L, Hct 34.1 L, MCV 91.7, MCH 29.8, MCHC 32.6, RDW Std Deviation 48.0 H, RDW Coeff of Del 14.4, Plt Count 157, MPV 10.0, Immature Gran % (Auto) 0.500, Neut % (Auto) 67.6, Lymph % (Auto) 18.0 L, [place] % (Auto) 10.6 H, Eos % (Auto) 2.7, Baso % (Auto) 0.6, Absolute Neuts (auto) 4.2, Absolute Lymphs (auto) 1.12, Nucleated RBC % 0 04/13/22 05:15: Sodium 141, Potassium 4.1, Chloride 113 H, Carbon Dioxide 23.0, Anion Gap 5, BUN 15, Creatinine 0.89, Estim Creat Clear Calc 51.24, Est GFR (MDRD) Af Amer 105, Est GFR (MDRD) Non-Af 87, BUN/Creatinine Ratio 16.9, Glucose 102, Calcium 9.3 Cardiology Labs/Tests 04/13/22 05:15: WBC 6.2, RBC 3.72 L, Hgb 11.1 L, Hct 34.1 L, MCV 91.7, MCH 29.8, MCHC 32.6, Plt Count 157, MPV 10.0, Immature Gran % (Auto) 0.500, Neut % (Auto) 67.6, Lymph % (Auto) 18.0 L, [place] % (Auto) 10.6 H, Eos % (Auto) 2.7, Baso % (Auto) 0.6, Absolute Neuts (auto) 4.2, Nucleated RBC % 0 04/13/22 05:15: Sodium 141, Potassium 4.1, Chloride 113 H, Carbon Dioxide 23.0, Anion Gap 5, BUN 15, Creatinine 0.89, Est GFR (MDRD) Af Amer 105, Est GFR (MDRD) Non-Af 87, BUN/Creatinine Ratio 16.9, Glucose 102, Calcium 9.3 Rhythm: Atrial fibrillation Physical Exam Const alert and no apparent distress Orientation / Consciousness: awake HEENT normocephalic, head/scalp atraumatic and hearing grossly normal bilaterally Eyes PERRL, EOMs intact bilaterally, conjunctivae normal and no scleral icterus Neck full ROM, supple and no JVD Chest Chest: midline sternotomy incision Resp normal respiratory effort and clear to auscultation bilaterally Cardio Rhythm: abnormal rhythm irregularly irregular Heart Sounds: S1 normal and S2 normal GI normal to inspection, nondistended, normoactive bowel sounds Extremity no pedal edema Skin no rashes or lesions noted Assessment & Plan Assessment/Plan (1) Atherosclerosis of coronary artery of [place] heart without angina pectoris: QUALIFIERS: Coronary Disease-Associated Artery/Lesion type: [place] artery Qualified Code(s): I25.10 - Atherosclerotic heart disease of [place] coronary artery without angina pectoris PLAN: At the present time the patient appears to be with mild ongoing symptoms of angina pectoris. He should continue risk factor modification medical therapy as best as tolerated. (2) Presence of stent in coronary artery: PLAN: The patient has a history of PCI. Again at the moment he appears to be without ongoing symptoms of angina pectoris. He should continue medical management. (3) History of two vessel coronary artery bypass graft: PLAN: The patient has a history of CABG. His revascularization history was reviewed. He appears to be stable without ongoing symptoms of angina pectoris. He will continue medical therapy as he is able. (4) Atrial fibrillation: PLAN: The patient has a history of permanent atrial fibrillation. He will continue rate control therapy as needed. He is not on anticoagulant therapy at this time secondary to a combination of his age, gait instability, falling episodes, etc. (5) Cardiac pacemaker: PLAN: The patient does have a permanent pacemaker in place. It has been followed as an outpatient. His last permanent pacemaker interrogation demonstrated his battery longevity to be approximately 9 years. (6) Pure hypercholesterolemia: PLAN: The patient should continue risk factor evaluation care as he is able. (7) Hypotension: PLAN: The patient's blood pressure does appear to be improving with adjustment of his medications. His medications can be further adjusted as needed. Addt'l Comments Otherwise, at the present time, there are no immediate plans for additional cardiovascular diagnostic studies/intervention. The patient can be followed as an outpatient for his cardiovascular condition and he should be followed by his PCP group for his noncardiovascular conditions. The patients case was discussed and reviewed with Dr. Gipson, who performed the inpatient cardiology consultation, of interventional cardiology. Thank you for allowing me to participate in the care of your patient. Please don't hesitate to call if any issues arise. This note was generated using a voice recognition system and there may be incorrect words, spelling or punctuation that were not noted when reviewing the office note prior to saving. Procedure Criteria Type of Procedure Procedure Type: Elective Elective Risks - COVID COVID Risk Discussion: The surgeon/proceduralist and patient have discussed in detail the risk of exposure to and/or potential harm posed by the COVID-19 virus with having a surgery/procedure at this time versus the risk of delaying the surgery/procedure. It is not possible to know either the risk of delaying the surgery or procedure or chance of getting an infection with perfect accuracy, but a joint decision was made between the patient and the surgeon/proceduralist to proceed at this time with the scheduled surgery/procedure as indicated on the consent form.
[2022-04-13] MEDS: Potassium Chloride Oral Tablet 20 MEQ PO (09:28)
[2022-04-13] MEDS: Ensure Plus High Protein 120 ML LIQUID PO ×2 (09:28→13:13)
[2022-04-13] MEDS: Pantoprazole Sodium 20 MG Tablet PO (09:28)
[2022-04-13] MEDS: Midodrine HCl 5 MG Tablet PO ×3 (09:32→17:21)
[2022-04-13 09:33] VITALS: BP 131/64; PULSE 99; RESP 18; TEMP 37; O2SAT 97
[2022-04-13 11:00] VITALS: BP 108/49; BP 108/70; BP 131/74; PULSE 67; PULSE 93
--- NOTE | 2022-04-13 15:27 | CASEMGMT ---
Social Work SW notified by RNCM Hermilo that pt did well in therapy and may not need SNF. SW reviewed notes and discussed with pt. Pt reports feels safe to go home and does not feel the need to go to SNF for rehab. Pt stated has neighbors who check on him and Meals on Wheels delivered daily. Pt declined to discuss HHC or OP therapy options. SUNG updated pt of new plan for pt to discharge home. voiced understanding via backline. SUNG messaged [facility] to cancel referral. PLAN: Home [facility]
--- NOTE | 2022-04-13 15:31 | PCM.DC.SUM ---
Providers Date of Admission: 04/10/22 Date of Discharge: 04/13/22 Primary Care Physician: Dr. Jono Harrington MD Consultations 04/10/22 17:27 Consult: Cardiology Routine Consulting Provider: Soraya Gipson Reason for Consult: tachycardia per pacemaker interrogation EMERGENT Consult: No MD Notified: Yes Date Notified: 04/10/22 Time Notified: 17:27 Method of Notification: Text Reason For Visit: DEBILITY, MECHANICAL FALL Diagnosis Discharge Diagnosis (1) Atherosclerosis of coronary artery of [place] heart without angina pectoris: Status: Chronic Code(s): I25.10 - Atherosclerotic heart disease of [place] coronary artery without angina pectoris Qualifiers: Coronary Disease-Associated Artery/Lesion type: [place] artery Qualified Code(s): I25.10 - Atherosclerotic heart disease of [place] coronary artery without angina pectoris (2) Presence of stent in coronary artery: Status: Chronic Code(s): Z95.5 - Presence of coronary angioplasty implant and graft (3) History of two vessel coronary artery bypass graft: Status: Chronic Code(s): Z95.1 - Presence of aortocoronary bypass graft (4) Atrial fibrillation: Status: Acute Code(s): I48.91 - Unspecified atrial fibrillation (5) Cardiac pacemaker: Status: Chronic Code(s): Z95.0 - Presence of cardiac pacemaker (6) Pure hypercholesterolemia: Status: Chronic Code(s): E78.00 - Pure hypercholesterolemia, unspecified (7) Hypotension: Status: Acute Code(s): I95.9 - Hypotension, unspecified Medications at Discharge Home Medications omeprazole 20 mg capsule,delayed release 20 mg PO DAILY GERD 02/19/15 tamsulosin 0.4 mg capsule 0.4 mg PO QHS prostate 07/29/17 nitroglycerin 0.4 mg sublingual tablet 0.4 mg sublingual Q5M PRN CHEST PAIN #25 tabs 04/23/20 levothyroxine 25 mcg tablet 25 mcg PO DAILY THYROID 07/10/20 metoprolol tartrate 25 mg tablet 12.5 mg PO BID bp 03/04/22 midodrine 5 mg tablet 5 mg PO BID bp #60 tabs 04/01/22 ciprofloxacin HCl 500 mg tablet (Cipro) 500 mg PO BID #14 tabs 04/03/22 potassium chloride 20 mEq tablet,extended release 20 meq PO DAILY #30 tabs 04/08/22 acetaminophen 650 mg tablet,extended release 1,300 mg PO Q8H 04/10/22 furosemide 40 mg tablet 40 mg PO DAILY fluid 04/10/22 oxycodone-acetaminophen 5 mg-325 mg tablet 1 tab PO Q6H PRN Pain 04/10/22 rosuvastatin 40 mg tablet 40 mg PO DAILY cholesterol 04/10/22 Hospital Course Procedures EKG and - (CT head/chest x-ray) Summary of Care Provided Minutes Spent on Discharge: 28 Hospital Course: Mr. Houston is an 86-year-old white male who presented to emergency department at [facility] on 04/10/2022 with a chief complaint of weakness and a mechanical fall. Patient was evidently in upright position and urinating when he fell. He hit his head at the initial fall but did not lose consciousness. He denied any associated symptoms. Vitals were BP of 122/85, IA of 87 and RR of 23, temp of 98.1F and he was saturating at 100% on room air. CBC showed Hb of 11.1 and platelets of 165 as well as platelets of 4.8. Chemistry showed sodium of 141, potassium of 3.4 and Cr of 1.54. Initial troponin was 14 and urinalysis showed leucocyte esterase of 100. urine bacteria and wbc pending. CXR showed mild stable increased linear markings at the left lung base with blunting at the left costophrenic angle suggestive of scarring. CT of the brain showed chronic involutional changes. He is being admitted to be managed for debility due to mechanical fall. Orthostatic vital signs were found to be positive and his metoprolol and Lasix were held. He was gently hydrated and evaluated by cardiology. With hydration his orthostasis improved and he was asymptomatic. Of note he had recent stents placed in his bladder for which he has been on ciprofloxacin and does have follow-up with urology after discharge. By the a.m. of 04/13/2022 the patient was feeling significantly better. He was evaluated by physical and Occupational Therapy and they did not feel he needed any ongoing therapy at discharge and that discharge home was safe for him. I discussed the case with cardiology prior to discharge and they recommended we continue holding his metoprolol and Lasix as well as leave him on the midodrine that was started during his hospitalization. Dr. Moodispaw indicated he would like to follow-up with him within the next 2 weeks. They did indicate that he has been problematic in the past with regards to his medications but had been getting help and been doing better overall. His urine culture showed no growth and he was instructed to continue his Cipro as directed by Dr. Mo prior to admission. He was discharged home in stable condition on 04/13/2022. Discharge diagnoses: Mechanical fall secondary to orthostatic hypotension Orthostatic hypotension-resolved CAD History of 2 vessel CABG Permanent atrial fibrillation History of pacemaker placement Hyperlipidemia next 9 PA change Hypothyroidism History of GERD History of tobacco abuse Osteoarthritis Physical Exam Const alert, oriented x3, no apparent distress, average body habitus and well nourished Constitutional Narrative: Elderly white male sitting up in the bed, appears comfortable nontoxic, watching television, states he feels like he can probably go home now rather than need therapy prior to discharge at a skilled facility General Appearance: cooperative, comfortable, well kempt and well developed Orientation / Consciousness: awake, oriented to person, oriented to place and oriented to time Exam Limitations: no limitations HEENT normocephalic, head/scalp atraumatic, hearing grossly normal bilaterally and moist oral mucous membranes Eyes PERRL, EOMs intact bilaterally and conjunctivae normal Eyes Narrative: No scleral icterus Resp normal respiratory effort, no retractions, no use of accessory muscles and clear to auscultation bilaterally Auscultation: Negative for crackles, rales, rhonchi or wheezes Cardio regular rhythm, S1 normal heart sound, S2 normal heart sound, no murmurs, no rub, no gallops and no clicks Cardio Narrative: Irregular rhythm GI normal to inspection, nondistended, normoactive bowel sounds, soft to palpation and non-tender Extremity no clubbing, cyanosis or edema Extremity Narrative: 2+ pedal pulses Neuro oriented x3, CN's II-XII intact bilaterally, moves all extremities and no focal motor deficits Speech: speech normal Psych affect normal Psych Narrative: A pleasant/appropriately interactive Medical Records Data Medical Nutrition Assessment Dietitian: Malnutrition Criteria Met Start: 04/11/22 20:43 Freq: Status: Active Protocol: Document 04/11/22 15:44 KNK (Rec: 04/11/22 20:44 KNK [id number]) Nutrition Malnutrition Evidence of Malnutrition Exists Yes Malnutrition (moderate): Acute Illness/Injury Evidenced By Suboptimal Energy Intake ( Moderate),Weight Loss ( Moderate),Physical Changes ( Mild) Clinical Problem Acute Disease or Injury Related Malnutrition Etiology related to physiological changes causing decreased oral intakes Signs/Symptoms as evidenced by significant weight loss of 3.0% in 5 days, oral intakes less than 75% of estimated energy needs for at least 1 week and mild muscle and fat wasting per NFPA ( buccal, clavicle, congregational). Status Active Problem Recommendation Dietitian Recommendations/Changes Change diet to Regular - General to help increase oral intakes. Pt not interested in ONS use at this time. Will reassess oral intakes upon f/u and modify interventions as needed . Weight / BMI Weight Weight: 59.7 kg Body Mass Index (BMI) 20.4 ABG / Lab / Microbiology Data Result Diagrams: 04/13/22 05:15 04/13/22 05:15 Laboratory: Laboratory Results - last 24 hr 04/13/22 05:15: WBC 6.2, RBC 3.72 L, Hgb 11.1 L, Hct 34.1 L, MCV 91.7, MCH 29.8, MCHC 32.6, RDW Std Deviation 48.0 H, RDW Coeff of Del 14.4, Plt Count 157, MPV 10.0, Immature Gran % (Auto) 0.500, Neut % (Auto) 67.6, Lymph % (Auto) 18.0 L, [place] % (Auto) 10.6 H, Eos % (Auto) 2.7, Baso % (Auto) 0.6, Absolute Neuts (auto) 4.2, Absolute Lymphs (auto) 1.12, Nucleated RBC % 0 04/13/22 05:15: Sodium 141, Potassium 4.1, Chloride 113 H, Carbon Dioxide 23.0, Anion Gap 5, BUN 15, Creatinine 0.89, Estim Creat Clear Calc 51.24, Est GFR (MDRD) Af Amer 105, Est GFR (MDRD) Non-Af 87, BUN/Creatinine Ratio 16.9, Glucose 102, Calcium 9.3 D/C Instructions Discharge Diet: Low fat / Low cholesterol Discharge Activity: Return to Normal Activity Meaningful Use Info Meaningful Use Diagnoses (Choose all that apply): None applicable Discharge Plan Admission Admit Date/Time: 04/10/22 15:54 Primary Reason for Your Visit: Weakness status post mechanical fall Attending Provider: Page Prieto Primary Care Provider: Jono Harrington Chi Consulting Providers: Soraya Gipson ; Maru Polo Discharge Orders/Prescriptions Prescriptions: Continued omeprazole 20 MG capsule 20 mg PO DAILY Label Comments: reflux tamsulosin 0.4 MG capsule,extended release 24hr 0.4 mg PO QHS levothyroxine 25 MCG tablet 25 mcg PO DAILY ciprofloxacin HCl [Cipro] 500 mg tablet 500 mg PO BID Qty: 14 0RF acetaminophen 650 mg Tablet Extended Release 1,300 mg PO Q8H oxycodone-acetaminophen 5-325 mg tablet 1 tab PO Q6H PRN (Reason: Pain) Label Comments: Take one tablet by mouth every 6 hours as needed for pain for 7 days, rosuvastatin 40 mg tablet 40 mg PO DAILY Label Comments: TAKE 1 TABLET BY MOUTH EVERY DAY nitroglycerin 0.4 mg tablet, sublingual 0.4 mg sublingual Q5M PRN (Reason: CHEST PAIN) Qty: 25 3RF Label Comments: chest pain Rx Instructions: 1 tablet sublingual every 5 minutes x 3 for chest pain, if unresolved call 911 midodrine 5 mg tablet 5 mg PO BID Qty: 60 11RF Hold Instructions: Hypertension Rx Instructions: do not give last dose of day after 6PM or within 4 hrs of bedtime potassium chloride 20 mEq tablet extended release 20 meq PO DAILY Qty: 30 11RF Held furosemide 40 mg tablet 40 mg PO DAILY Hold Instructions: Until seen in follow-up by cardiology Label Comments: TAKE 1 TABLET BY MOUTH DAILY metoprolol tartrate 25 mg tablet 12.5 mg PO BID Hold Instructions: Until seen in follow-up by cardiology Referrals / Follow Up: Heladio Mo MD [Med Staff - Active Staff] - See Referral Note (as scheduled) Jerry Jeffers MD [Med Staff - Active Staff] - See Referral Note (within 2 weeks) Jono Harrington Chi, MD [Primary Care Provider] - Within 1 Month Disposition Disposition (needs filled in before D/C Order can be placed): Home, Self Care Charges/Coding Visit Charges OBSV E&M: 88037 Observation care discharge
--- NOTE | 2022-04-13 16:04 | PHA.DC.MR ---
Pharmacy Service has performed discharge medication reconciliation for this patient. The patient's discharge medication list was reviewed for discrepancies and discrepancies were resolved. Home Medications omeprazole 20 mg capsule,delayed release 20 mg PO DAILY GERD 02/19/15 tamsulosin 0.4 mg capsule 0.4 mg PO QHS prostate 07/29/17 nitroglycerin 0.4 mg sublingual tablet 0.4 mg sublingual Q5M PRN CHEST PAIN #25 tabs 04/23/20 levothyroxine 25 mcg tablet 25 mcg PO DAILY THYROID 07/10/20 metoprolol tartrate 25 mg tablet 12.5 mg PO BID bp 03/04/22 midodrine 5 mg tablet 5 mg PO BID bp #60 tabs 04/01/22 ciprofloxacin HCl 500 mg tablet (Cipro) 500 mg PO BID #14 tabs 04/03/22 potassium chloride 20 mEq tablet,extended release 20 meq PO DAILY #30 tabs 04/08/22 acetaminophen 650 mg tablet,extended release 1,300 mg PO Q8H 04/10/22 furosemide 40 mg tablet 40 mg PO DAILY fluid 04/10/22 oxycodone-acetaminophen 5 mg-325 mg tablet 1 tab PO Q6H PRN Pain 04/10/22 rosuvastatin 40 mg tablet 40 mg PO DAILY cholesterol 04/10/22
[2022-04-13 17:43] VITALS: BP 118/79; PULSE 74; RESP 18; TEMP 36.7; O2SAT 98
--- NOTE | 2022-04-16 13:30 | CASEMGMT ---
Social Work [facility] and [facility] have been notified of patient's discharge back to the community. Min confirms is following up with patient and has been working with [facility] on home concerns. -NADEGE Thompson, CORK CUTTER
== END 2022-04-13 17:35 | disposition home or self-care (01) ==
LOC: ED 16:10 → MS3 16:19
PROVIDERS: Admitting Provider Student in an Organized Health Care Education/Training Program; Emergency Provider Emergency Medicine; PCP Family Medicine Geriatric Medicine; Visit Provider Internal Medicine
DX: I25.10 Atherosclerotic heart disease of native coronary artery without angina pectoris (principal); N17.9 Acute kidney failure, unspecified; I42.9 Cardiomyopathy, unspecified; I49.5 Sick sinus syndrome; I48.20 Chronic atrial fibrillation, unspecified; R53.81 Other malaise; Z87.891 Personal history of nicotine dependence; K21.9 Gastro-esophageal reflux disease without esophagitis; E78.00 Pure hypercholesterolemia, unspecified; R62.7 Adult failure to thrive; I95.1 Orthostatic hypotension; I10 Essential (primary) hypertension; M19.90 Unspecified osteoarthritis, unspecified site; R53.1 Weakness; E03.9 Hypothyroidism, unspecified; Z95.810 Presence of automatic (implantable) cardiac defibrillator; E87.6 Hypokalemia; Z79.899 Other long term (current) drug therapy; Z79.890 Hormone replacement therapy; R29.6 Repeated falls; N40.0 Benign prostatic hyperplasia without lower urinary tract symptoms; I25.2 Old myocardial infarction
CPT/HCPCS: 36415; 70450; 71045; 80048; 81001; 84484; 85025; 93005; 96360; 96361; 97162; 97166; 97530; 97535; 97802; 99218; 99285; J7030; J7040; A4216; G0378

== ENCOUNTER → 2022-05-04 | Outpatient (CLI) | payer MEDICARE, SELFPAY ==
[2022-05-04 13:09] LABS: Absolute Lymphocyte Count 1.11 X10^3/uL (0.83-4.51); Absolute Neutrophil Count 4.1 X10^3/uL (2.0-7.7); Basophil# 0.04 X10^3/uL; Basophil% 0.7 % (0-1); Eosinophil# 0.03 X10^3/uL; Eosinophils% 0.5 % (0-5); Hemoglobin 12.3 g/dL (13.0-16.5); Lymphocyte # 1.11 X10^3/ul (0.83-4.51); Lymphocyte % 18.8 % (19-41); Mean Corp Hgb Conc 31.5 g/dL (32-36); Mean Corpuscular Hgb 29.4 pg (27.0-32.0); Mean Corpuscular Volume 93.1 fL (80-94); Mean Platelet Vol. 10.3 fl (6.2-12.0); Monocyte# 0.58 X10^3/uL; Monocyte% 9.8 % (0-10); NRBC Flagged by Analyzer 0 % (0-5); Neutrophil # 4.11 X10^3/uL (2.7-7.7); Neutrophil % 69.9 % (47-70); Platelet Count 252 K/mm3 (150-450); RBC Distribution Width CV 14.6 % (11.6-14.6); RBC Distribution Width SD 49.8 fl (35.1-43.9); Red Blood Count 4.19 M/mm3 (4.6-6.2); White Blood Count 5.9 K/mm3 (4.4-11.0)
[2022-05-04 13:27] LABS: Vitamin D,25 Hydroxy 30.7 ng/mL
[2022-05-04 13:36] LABS: AST(SGOT) 10 U/L (15-37); Alanine Aminotransfer ALT/SGPT 18 U/L (16-61); Albumin, Serum 3.6 g/dL (3.2-5.0); Alkaline Phosphatase 77 U/L (45-117); Anion Gap 11 (5-15); BUN 21 mg/dL (7-18); BUN/Creat Ratio 21.1 RATIO (10-20); Calcium,Total 9.6 mg/dL (8.5-10.1); Chloride 107 mmol/L (98-107); EST Glomerular Filtration Rate 76 mL/min (>60); Est Glom Filt Rate - Afr Amer 92 mL/min (>60); Globulin 3.5 g/dL (2.2-4.2); Glucose 94 mg/dL (74-106); Potassium 4.1 mmol/L (3.5-5.1); Protein, Total 7.1 g/dL (6.4-8.2); Sodium Level 139 mmol/L (136-145); Thyroid Stim Hormone (TSH) 1.12 uIU/mL (0.358-3.74)
== END | disposition home or self-care (01) ==
LOC: POLAB3 10:16
PROVIDERS: PCP Family Medicine Geriatric Medicine; Visit Provider Family Medicine Geriatric Medicine
DX: I10 Essential (primary) hypertension (principal); E55.9 Vitamin D deficiency, unspecified
CPT/HCPCS: 36415; 80053; 82306; 84443; 85025

== ENCOUNTER → 2022-08-05 | Outpatient (CLI) | payer MEDICARE, SELFPAY ==
[2022-08-05 13:01] LABS: Absolute Lymphocyte Count 1.42 X10^3/uL (0.83-4.51); Absolute Neutrophil Count 5.1 X10^3/uL (2.0-7.7); Basophil# 0.05 X10^3/uL; Basophil% 0.7 % (0-1); Eosinophil# 0.06 X10^3/uL; Eosinophils% 0.8 % (0-5); Hematocrit 36.3 % (40-54); Hemoglobin 11.7 g/dL (13.0-16.5); Lymphocyte # 1.42 X10^3/ul (0.83-4.51); Mean Corp Hgb Conc 32.2 g/dL (32-36); Mean Corpuscular Hgb 30.2 pg (27.0-32.0); Mean Corpuscular Volume 93.6 fL (80-94); Mean Platelet Vol. 10.4 fl (6.2-12.0); Monocyte# 0.82 X10^3/uL; Monocyte% 10.9 % (0-10); NRBC Flagged by Analyzer 0 % (0-5); Neutrophil # 5.12 X10^3/uL (2.7-7.7); Neutrophil % 68.3 % (47-70); Platelet Count 217 K/mm3 (150-450); RBC Distribution Width CV 13.4 % (11.6-14.6); RBC Distribution Width SD 45.8 fl (35.1-43.9); Red Blood Count 3.88 M/mm3 (4.6-6.2); White Blood Count 7.5 K/mm3 (4.4-11.0)
[2022-08-05 13:18] LABS: Vitamin D,25 Hydroxy 26.9 ng/mL
[2022-08-05 13:50] LABS: Digoxin Level 2.02 ng/mL (0.80-2.00)
[2022-08-05 13:51] LABS: ALB/GLOB Ratio 1.2 RATIO (0.9-2.4); AST(SGOT) 10 U/L (15-37); Alanine Aminotransfer ALT/SGPT 12 U/L (16-61); Albumin, Serum 3.5 g/dL (3.2-5.0); Alkaline Phosphatase 79 U/L (45-117); Anion Gap 6 (5-15); BUN 17 mg/dL (7-18); BUN/Creat Ratio 12.8 RATIO (10-20); Calcium,Total 9.6 mg/dL (8.5-10.1); Chloride 113 mmol/L (98-107); Creatinine, Serum 1.33 mg/dL (0.70-1.30); EST Glomerular Filtration Rate 54 mL/min (>60); Est Glom Filt Rate - Afr Amer 66 mL/min (>60); Globulin 2.9 g/dL (2.2-4.2); Glucose 107 mg/dL (74-106); Potassium 4.4 mmol/L (3.5-5.1); Protein, Total 6.4 g/dL (6.4-8.2); Sodium Level 141 mmol/L (136-145); Thyroid Stim Hormone (TSH) 0.79 uIU/mL (0.358-3.74)
== END | disposition home or self-care (01) ==
LOC: POLAB3 10:39
PROVIDERS: Internal Medicine Cardiovascular Disease; PCP Family Medicine Geriatric Medicine; Visit Provider Family Medicine Geriatric Medicine
DX: E55.9 Vitamin D deficiency, unspecified (principal); I43 Cardiomyopathy in diseases classified elsewhere; I48.91 Unspecified atrial fibrillation; I10 Essential (primary) hypertension
CPT/HCPCS: 36415; 80053; 80162; 82306; 84443; 85025

== ENCOUNTER → 2022-11-09 | Outpatient (CLI) | payer MEDICARE, SELFPAY ==
[2022-11-09 12:24] LABS: Absolute Lymphocyte Count 1.29 X10^3/uL (0.83-4.51); Absolute Neutrophil Count 4.1 X10^3/uL (2.0-7.7); Basophil# 0.05 X10^3/uL; Basophil% 0.8 % (0-1); Eosinophil# 0.06 X10^3/uL; Hematocrit 35.6 % (40-54); Hemoglobin 11.5 g/dL (13.0-16.5); Lymphocyte # 1.29 X10^3/ul (0.83-4.51); Lymphocyte % 21.5 % (19-41); Mean Corp Hgb Conc 32.3 g/dL (32-36); Mean Platelet Vol. 10.8 fl (6.2-12.0); Monocyte# 0.52 X10^3/uL; Monocyte% 8.7 % (0-10); NRBC Flagged by Analyzer 0 % (0-5); Neutrophil # 4.05 X10^3/uL (2.7-7.7); Neutrophil % 67.7 % (47-70); Platelet Count 180 K/mm3 (150-450); RBC Distribution Width CV 14.6 % (11.6-14.6); RBC Distribution Width SD 49.7 fl (35.1-43.9); Red Blood Count 3.83 M/mm3 (4.6-6.2)
[2022-11-09 12:41] LABS: Vitamin D,25 Hydroxy 35.5 ng/mL
[2022-11-09 12:51] LABS: ALB/GLOB Ratio 1.1 RATIO (0.9-2.4); AST(SGOT) 13 U/L (15-37); Alanine Aminotransfer ALT/SGPT 12 U/L (16-61); Albumin, Serum 3.5 g/dL (3.2-5.0); Alkaline Phosphatase 72 U/L (45-117); Anion Gap 6 (5-15); BUN 26 mg/dL (7-18); Calcium,Total 9.3 mg/dL (8.5-10.1); Chloride 114 mmol/L (98-107); Creatinine, Serum 1.24 mg/dL (0.70-1.30); EST Glomerular Filtration Rate 59 mL/min (>60); Est Glom Filt Rate - Afr Amer 71 mL/min (>60); Globulin 3.2 g/dL (2.2-4.2); Glucose 92 mg/dL (74-106); Potassium 4.4 mmol/L (3.5-5.1); Protein, Total 6.7 g/dL (6.4-8.2); Sodium Level 142 mmol/L (136-145); Thyroid Stim Hormone (TSH) 3.91 uIU/mL (0.358-3.74)
== END | disposition home or self-care (01) ==
LOC: POLAB3 10:04
PROVIDERS: PCP Family Medicine Geriatric Medicine; Visit Provider Family Medicine Geriatric Medicine
DX: I10 Essential (primary) hypertension (principal); E55.9 Vitamin D deficiency, unspecified
CPT/HCPCS: 36415; 80053; 82306; 84443; 85025

== ENCOUNTER → 2023-03-15 | Outpatient (CLI) | payer MEDICARE, SELFPAY ==
--- NOTE | 2023-03-15 10:25 | RAD_ITS ---
STUDY: X-RAY - ABDOMEN/PELVIS REASON FOR EXAM: Male, 87 years old. Follow-up of kidney stones. TECHNIQUE: Single AP view of the abdomen / pelvis on 2 images. COMPARISON: CT of the abdomen and pelvis dated March 09, 2022. FINDINGS: Lung bases not visualized. Normal bowel gas pattern with air seen to the rectosigmoid. Moderate amount of feces in the colon partially obscures renal outlines. Multiple small calcifications projected over both renal shadows, similar to what was present on the sensitivity dated March 09, 2022. Clips projected over both upper quadrants of the abdomen. Marked vascular calcification. RAD/Abdomen Single View IMPRESSION: Stable multiple small calcifications projected over both renal outlines. No acute finding. Electronically Signed: Bernabe Rojas MD at 12:46 EST ,
== END | disposition home or self-care (01) ==
PROVIDERS: PCP Family Medicine Geriatric Medicine; Referring Provider Urology; Visit Provider Urology
DX: N20.0 Calculus of kidney (principal)
CPT/HCPCS: 74018

== ENCOUNTER → 2023-05-14 | Outpatient (CLI) | payer MEDICARE, SELFPAY ==
[2023-05-14 09:47] LABS: Absolute Neutrophil Count 4.4 X10^3/uL (2.0-7.7); Basophil# 0.04 X10^3/uL; Basophil% 0.6 % (0-1); Eosinophils% 1.5 % (0-5); Hematocrit 34.7 % (40-54); Hemoglobin 10.9 g/dL (13.0-16.5); Lymphocyte % 19.9 % (19-41); Mean Corp Hgb Conc 31.4 g/dL (32-36); Mean Corpuscular Hgb 31.1 pg (27.0-32.0); Mean Corpuscular Volume 98.9 fL (80-94); Mean Platelet Vol. 10.4 fl (6.2-12.0); Monocyte# 0.66 X10^3/uL; Monocyte% 10.1 % (0-10); NRBC Flagged by Analyzer 0 % (0-5); Neutrophil % 67.3 % (47-70); Platelet Count 200 K/mm3 (150-450); RBC Distribution Width CV 13.2 % (11.6-14.6); RBC Distribution Width SD 47.1 fl (35.1-43.9); Red Blood Count 3.51 M/mm3 (4.6-6.2); White Blood Count 6.5 K/mm3 (4.4-11.0)
[2023-05-14 10:11] LABS: Vitamin D,25 Hydroxy 46.8 ng/mL
[2023-05-14 10:16] LABS: ALB/GLOB Ratio 1.1 RATIO (0.9-2.4); AST(SGOT) 11 U/L (15-37); Alanine Aminotransfer ALT/SGPT 11 U/L (16-61); Albumin, Serum 3.5 g/dL (3.2-5.0); Alkaline Phosphatase 71 U/L (45-117); Anion Gap 5 (5-15); BUN 26 mg/dL (7-18); BUN/Creat Ratio 24.5 RATIO (10-20); Chloride 113 mmol/L (98-107); Cholesterol 145 mg/dL (200); Creatinine, Serum 1.06 mg/dL (0.70-1.30); EST Glomerular Filtration Rate 70 mL/min (>60); Est Glom Filt Rate - Afr Amer 85 mL/min (>60); Globulin 3.2 g/dL (2.2-4.2); Glucose 97 mg/dL (74-106); High Density Lipoprotein 67 mg/dL; Potassium 3.9 mmol/L (3.5-5.1); Protein, Total 6.7 g/dL (6.4-8.2); Sodium Level 141 mmol/L (136-145); Thyroid Stim Hormone (TSH) 0.75 uIU/mL (0.358-3.74); Triglycerides 66 mg/dL; Very Low Density Lipoprotein 13 mg/dL (5-40)
== END | disposition home or self-care (01) ==
LOC: POLAB3 09:12
PROVIDERS: PCP Family Medicine Geriatric Medicine; Visit Provider Family Medicine Geriatric Medicine
DX: I10 Essential (primary) hypertension (principal); E55.9 Vitamin D deficiency, unspecified; E78.5 Hyperlipidemia, unspecified; E03.9 Hypothyroidism, unspecified
CPT/HCPCS: 36415; 80053; 80061; 82306; 84443; 85025

== ENCOUNTER → 2023-06-21 | Outpatient (CLI) | payer MEDICARE, SELFPAY ==
[2023-06-21 10:12] LABS: Absolute Lymphocyte Count 1.73 X10^3/uL (0.83-4.51); Absolute Neutrophil Count 4.4 X10^3/uL (2.0-7.7); Basophil# 0.04 X10^3/uL; Basophil% 0.6 % (0-1); Eosinophil# 0.12 X10^3/uL; Eosinophils% 1.7 % (0-5); Hematocrit 34.6 % (40-54); Hemoglobin 11.1 g/dL (13.0-16.5); Lymphocyte # 1.73 X10^3/ul (0.83-4.51); Lymphocyte % 25.1 % (19-41); Mean Corp Hgb Conc 32.1 g/dL (32-36); Mean Corpuscular Hgb 30.8 pg (27.0-32.0); Mean Corpuscular Volume 96.1 fL (80-94); Monocyte# 0.63 X10^3/uL; Monocyte% 9.1 % (0-10); NRBC Flagged by Analyzer 0 % (0-5); Neutrophil # 4.36 X10^3/uL (2.7-7.7); Neutrophil % 63.4 % (47-70); Platelet Count 229 K/mm3 (150-450); RBC Distribution Width CV 12.8 % (11.6-14.6); RBC Distribution Width SD 45.2 fl (35.1-43.9); White Blood Count 6.9 K/mm3 (4.4-11.0)
== END | disposition home or self-care (01) ==
LOC: POLAB3 09:40
PROVIDERS: PCP Family Medicine Geriatric Medicine; Visit Provider Family Medicine Geriatric Medicine
DX: D64.9 Anemia, unspecified (principal)
CPT/HCPCS: 36415; 85025

== ENCOUNTER → 2023-11-16 | Outpatient (CLI) | payer MEDICARE, SELFPAY ==
[2023-11-16 13:04] LABS: Absolute Lymphocyte Count 1.28 X10^3/uL (0.83-4.51); Basophil# 0.05 X10^3/uL; Basophil% 0.8 % (0-1); Eosinophils% 1.7 % (0-5); Hematocrit 35.6 % (40-54); Hemoglobin 11.4 g/dL (13.0-16.5); Lymphocyte # 1.28 X10^3/ul (0.83-4.51); Lymphocyte % 21.1 % (19-41); Mean Corpuscular Hgb 30.9 pg (27.0-32.0); Mean Corpuscular Volume 96.5 fL (80-94); Mean Platelet Vol. 10.7 fl (6.2-12.0); Monocyte# 0.59 X10^3/uL; Monocyte% 9.7 % (0-10); NRBC Flagged by Analyzer 0 % (0-5); Neutrophil # 4.02 X10^3/uL (2.7-7.7); Neutrophil % 66.4 % (47-70); Platelet Count 177 K/mm3 (150-450); RBC Distribution Width SD 49.3 fl (35.1-43.9); Red Blood Count 3.69 M/mm3 (4.6-6.2); White Blood Count 6.1 K/mm3 (4.4-11.0)
[2023-11-16 13:43] LABS: Vitamin D,25 Hydroxy 37.8 ng/mL
[2023-11-16 13:55] LABS: AST(SGOT) 12 U/L (15-37); Alanine Aminotransfer ALT/SGPT 11 U/L (16-61); Albumin, Serum 3.5 g/dL (3.2-5.0); Alkaline Phosphatase 70 U/L (45-117); Anion Gap 8 (5-15); BUN 29 mg/dL (7-18); BUN/Creat Ratio 23.8 RATIO (10-20); Calcium,Total 9.4 mg/dL (8.5-10.1); Chloride 111 mmol/L (98-107); Cholesterol 128 mg/dL (200); Creatinine, Serum 1.22 mg/dL (0.70-1.30); EST Glomerular Filtration Rate 60 mL/min (>60); Est Glom Filt Rate - Afr Amer 72 mL/min (>60); Globulin 3.5 g/dL (2.2-4.2); Glucose 85 mg/dL (74-106); High Density Lipoprotein 60 mg/dL; Potassium 4.7 mmol/L (3.5-5.1); Sodium Level 141 mmol/L (136-145); Triglycerides 66 mg/dL; Very Low Density Lipoprotein 13 mg/dL (5-40)
== END | disposition home or self-care (01) ==
PROVIDERS: PCP Family Medicine Geriatric Medicine; Referring Provider Family Medicine Geriatric Medicine; Visit Provider Family Medicine Geriatric Medicine
DX: I10 Essential (primary) hypertension (principal); E78.5 Hyperlipidemia, unspecified; E55.9 Vitamin D deficiency, unspecified
CPT/HCPCS: 36415; 80053; 80061; 82306; 84443; 85025

== ENCOUNTER → 2024-05-16 | Outpatient (CLI) | payer MEDICARE, SELFPAY ==
[2024-05-16 12:10] LABS: Absolute Lymphocyte Count 1.24 X10^3/uL (0.83-4.51); Basophil# 0.05 X10^3/uL; Basophil% 0.7 % (0-1); Eosinophil# 0.18 X10^3/uL; Eosinophils% 2.5 % (0-5); Hematocrit 38.9 % (40-54); Hemoglobin 12.4 g/dL (13.0-16.5); Lymphocyte # 1.24 X10^3/ul (0.83-4.51); Lymphocyte % 17.2 % (19-41); Mean Corp Hgb Conc 31.9 g/dL (32-36); Mean Corpuscular Hgb 30.8 pg (27.0-32.0); Mean Corpuscular Volume 96.8 fL (80-94); Mean Platelet Vol. 9.9 fl (6.2-12.0); Monocyte# 0.67 X10^3/uL; Monocyte% 9.3 % (0-10); NRBC Flagged by Analyzer 0 % (0-5); Neutrophil # 4.97 X10^3/uL (2.7-7.7); Neutrophil % 68.9 % (47-70); Platelet Count 205 K/mm3 (150-450); RBC Distribution Width CV 13.9 % (11.6-14.6); RBC Distribution Width SD 49.1 fl (35.1-43.9); Red Blood Count 4.02 M/mm3 (4.6-6.2); White Blood Count 7.2 K/mm3 (4.4-11.0)
[2024-05-16 12:44] LABS: Vitamin D,25 Hydroxy 34.8 ng/mL
[2024-05-16 13:39] LABS: ALB/GLOB Ratio 0.8 RATIO (0.9-2.4); AST(SGOT) 10 U/L (15-37); Alanine Aminotransfer ALT/SGPT 10 U/L (16-61); Albumin, Serum 3.4 g/dL (3.2-5.0); Alkaline Phosphatase 81 U/L (45-117); Anion Gap 9 (5-15); BUN 21 mg/dL (7-18); BUN/Creat Ratio 13.2 RATIO (10-20); Calcium,Total 9.9 mg/dL (8.5-10.1); Chloride 111 mmol/L (98-107); Cholesterol 148 mg/dL (200); Creatinine, Serum 1.59 mg/dL (0.70-1.30); EST Glomerular Filtration Rate 44 mL/min (>60); Est Glom Filt Rate - Afr Amer 53 mL/min (>60); Glucose 90 mg/dL (74-106); High Density Lipoprotein 68 mg/dL; Potassium 4.6 mmol/L (3.5-5.1); Protein, Total 7.4 g/dL (6.4-8.2); Sodium Level 141 mmol/L (136-145); Triglycerides 96 mg/dL; Very Low Density Lipoprotein 19 mg/dL (5-40)
== END | disposition home or self-care (01) ==
LOC: POLAB3 11:50
PROVIDERS: PCP Family Medicine Geriatric Medicine; Visit Provider Family Medicine Geriatric Medicine
DX: I10 Essential (primary) hypertension (principal); E78.5 Hyperlipidemia, unspecified; E55.9 Vitamin D deficiency, unspecified
CPT/HCPCS: 36415; 80053; 80061; 82306; 84443; 85025

== ENCOUNTER → 2024-06-26 | Outpatient (CLI) | payer MEDICARE, SELFPAY | END | disposition home or self-care (01) | LOC: LABSPEC 16:02 | PROVIDERS: PCP Family Medicine Geriatric Medicine; Referring Provider Urology; Visit Provider Urology | DX: N39.0 Urinary tract infection, site not specified (principal) | CPT/HCPCS: 87086; 87088 ==

== ENCOUNTER → 2024-11-29 | Outpatient (CLI) | payer MEDICARE, SELFPAY ==
[2024-11-29 11:49] LABS: Hematocrit 39.2 % (40-54); Hemoglobin 12.9 g/dL (13.0-16.5); Immature Granulocytes Count 0.010 X10^3/uL (0.0-0.0); Mean Corp Hgb Conc 32.9 g/dL (32-36); Mean Corpuscular Volume 96.8 fL (80-94); Mean Platelet Vol. 10.1 fl (6.2-12.0); NRBC Flagged by Analyzer 0 % (0-5); Platelet Count 206 K/mm3 (150-450); RBC Distribution Width CV 13.0 % (11.6-14.6); RBC Distribution Width SD 46.5 fl (35.1-43.9); Red Blood Count 4.05 M/mm3 (4.6-6.2); White Blood Count 5.0 K/mm3 (4.4-11.0)
[2024-11-29 12:59] LABS: AST(SGOT) 17 U/L (<=37); Alanine Aminotransfer ALT/SGPT 7 U/L (<=46); Albumin, Serum 4.1 g/dL (3.4-4.8); Alkaline Phosphatase 76 U/L (40-129); Anion Gap 15 (5-15); BUN 30 mg/dL (4-19); BUN/Creat Ratio 20.4 RATIO (10-20); Calcium,Total 10.0 mg/dL (7.6-11.0); Carbon Dioxide 19.0 mmol/L (21.0-32.0); Chloride 107 mmol/L (98-108); Cholesterol 142 mg/dL (<=200); Globulin 3.1 g/dL (2.2-4.2); Glucose 94 mg/dL (70-99); Low Density Lipoprotein Calc. 71 mg/dL; Potassium 4.7 mmol/L (3.3-5.1); Triglycerides 83 mg/dL; Very Low Density Lipoprotein 17 mg/dL (5-40); Vitamin D,25 Hydroxy 27.6 ng/mL (30-100); cholesterol:hdl ratio screen 2.59
[2024-11-29 19:30] LABS: Xtra Tube Kwok EXTRA TUBE
== END | disposition home or self-care (01) ==
LOC: POLAB3 11:29
PROVIDERS: PCP Family Medicine Geriatric Medicine; Visit Provider Family Medicine Geriatric Medicine
DX: I10 Essential (primary) hypertension (principal); E55.9 Vitamin D deficiency, unspecified; E78.5 Hyperlipidemia, unspecified
CPT/HCPCS: 36415; 80053; 80061; 82306; 84443; 85025

== ENCOUNTER → 2024-12-28 | Outpatient (CLI) | payer MEDICARE, SELFPAY ==
--- NOTE | 2024-12-28 09:53 | ART_ITS ---
Reason For Study Reason For Study: PVD Procedure A bilateral lower extremity continuous wave Doppler with analog waveform analysis and ankle brachial indexes. Left Segmental Pressures Left brachial= 122mmHg. Left posterior tibial artery = 36mmHg. Left dorsalis pedis artery = 86mmHg. Left digit = 0 mmHg. The left posterior tibial artery waveforms are monophasic. The left dorsalis pedis waveforms are monophasic. Right Segmental Pressures Right brachial= 114mmHg. Right posterior tibial artery = 143mmHg. Right dorsalis pedis artery = 85mmHg. Right digit = 42 mmHg. The right posterior tibial artery waveforms are monophasic. The right dorsalis pedis waveforms are monophasic. Indices The right ankle brachial index by the posterior tibial artery is 1.17. The right ankle brachial index by the dorsalis pedis is 0.70. The right digital-brachial index is 0.34. The left ankle brachial index by the posterior tibial artery is 0.30. The left ankle brachial index by the dorsalis pedis is 0.70. The left digital-brachial index is 0.00. VL/Ankle Brachial Index Interpretation Summary Right [place] 1.17, artificially elevated. Doppler/PVR waveforms of the right ankle moderately diminished at rest. Left [place] 0.7, moderate arterial insufficiency though may be artificially elevat ed. Doppler/PVR waveforms of the left ankle severely diminished at rest. Ordering Physician: Jono Harrington Chi Referring Physician: Jono Harrington Chi Performed By: Lamont Stevens, RVT
== END | disposition home or self-care (01) ==
LOC: CVS 09:52
PROVIDERS: PCP Family Medicine Geriatric Medicine; Referring Provider Family Medicine Geriatric Medicine; Visit Provider Family Medicine Geriatric Medicine
DX: I73.9 Peripheral vascular disease, unspecified (principal)
CPT/HCPCS: 93922